=== PATIENT | female | born 1945 | race Caucasian/White ===

== ENCOUNTER → 2016-11-09 | Outpatient (CLI) | payer MEDICARE ==
--- NOTE | 2016-11-09 08:47 | US ---
EXAMINATION TYPE: US carotid duplex BILAT DATE OF EXAM: 11/09/2016 COMPARISON: NONE CLINICAL HISTORY: I65.23 STENOSIS OF BILATERAL CAROTID ARTERIES. previous smoker, no h/o stroke EXAM MEASUREMENTS: RIGHT: Peak Systolic Velocity (PSV) cm/sec ----- Right CCA: 66.8 ----- Right ICA: 100.6 ----- Right ECA: 59.3 ICA/CCA ratio: 1.5 RIGHT: End Diastole cm/sec ----- Right CCA: 20.1 ----- Right ICA: 31.2 ----- Right ECA: 8.7 LEFT: Peak Systolic Velocity (PSV) cm/sec ----- Left CCA: 44.4 ----- Left ICA: 317.5 ----- Left ECA: 128.3 ICA/CCA ratio: 7.2 LEFT: End Diastole cm/sec ----- Left CCA: 15.6 ----- Left ICA: 41.4 ----- Left ECA: 9.8 VERTEBRALS (direction of flow): Right Vertebral: Antegrade Left Vertebral: Antegrade Heterogeneous plaque seen bilaterally, more so on the left with stenosis noted at left ICA prx Atheromatous plaquing is at the internal carotid artery origins. There is marked increased velocity a t the left internal carotid artery compatible with severe stenosis of greater than 70%. IMPRESSION: 1. Intimal thickening with some atheromatous plaquing bilateral carotid vessels greater within the le ft internal carotid artery. 2. Severe stenosis greater than 70% at the left internal carotid artery origin. 3. Less than 50% narrowing of the right internal carotid artery origin. Criteria for Assigning % of Stenosis / Diameter reduction (Estimation based on the indirect measurements of the internal carotid artery velocities (ICA PSV). 1. Normal (no stenosis)=ICA PSV < 125 cm/s: ratio < 2.0: ICA EDV<40 cm/s. 2. Less than 50% stenosis=ICA PSV < 125 cm/s: ratio < 2.0: ICA EDV<40 cm/s. 3. 50 to 69% stenosis=ICA PSV of 125 to 230 cm/s: ration 2.0 ? 4.0: ICA EDV 40-100 cm/s. 4. Greater than 70% stenosis to near occlusion= ICA PSV > 230 cm/s: ratio > 4.0: ICA EDV > 100 cm/s. 5. Near occlusion= ICA PSV velocities may be low or undetectable: variable ratio and ICA EDV. 6. Total occlusion=unable to detect flow.
--- NOTE | 2016-11-09 08:58 | US ---
EXAMINATION TYPE: US duplex aorta DATE OF EXAM: 11/09/2016 COMPARISON: 11/24/2012 CLINICAL HISTORY: I71.4 I71.4 w/o rupture. Reassess known AAA EXAM MEASUREMENTS: Abdominal Aorta: Proximal: 2.5 x 2.5cm Mid: 3.6 x 4.2cm Distal: 2.4 x 2.9cm Bifurcation: shadowing from calcifications and bowel gas obscures view 4.2cm infrarenal aneurysm seen along with increased diameter at distal aorta, unable to visualize bif urcation due to extensive plaque noted throughout portions of aorta and obscuring bowel gas IMPRESSION: 1. Abdominal aortic aneurysm with maximum AP diameter of 4.2 cm. Transverse dimension is 3.6 cm. This has increased in size from 2012.
--- NOTE | 2016-11-14 11:22 | P.ARTDOP ---
Arterial Doppler LOWER EXTREMITY ARTERIAL DOPPLER: DATE OF SERVICE: 11/09/2016 Reason for study: Leg weakness. Doppler waveforms: Atypical throughout on the right. Multiphasic at the left femoral popliteal and posterior tibial. Atypical below.. Pulse volume recording: Normal configuration on the left and mild blunting on the right.. Pressure gradients: Above the low thigh on the right and femoral popliteal on the left. Ankle-brachial indices: 0.59 on the right and 0.79 on the left.. Toe pressures: 74 on the right, 102 on the left Impression: Mild left SFA disease. Moderate right iliofemoral disease. Clinical correlation recommended..
== END | disposition home or self-care (01) ==
LOC: RADUSWWP 06:48
PROVIDERS: ATTEND Internal Medicine
DX: I71.4 Abdominal aortic aneurysm, without rupture (principal); I65.23 Occlusion and stenosis of bilateral carotid arteries; I73.9 Peripheral vascular disease, unspecified
CPT/HCPCS: 93880; 93923; 93979

== ENCOUNTER 2017-10-05 18:12 | Inpatient (IN) | payer MEDICARE ==
[2017-10-05] MEDS ORDERED: IPRATROPIUM 0.5 MG/2.5 ML NEBU INHALATION STA ×2 (18:26→20:17)
[2017-10-05] MEDS ORDERED: methylPREDNISolone SOD SUCCI 125 MG/2 ML VIAL IV STA (18:26)
[2017-10-05] MEDS ORDERED: SODIUM CHLORIDE 0.9% 1,000 ML IV STA (18:26)
[2017-10-05] MEDS ORDERED: ALBUTEROL NEBULIZED 2.5 MG/3 ML INHALATION STA ×2 (18:26→20:17)
[2017-10-05] MEDS ORDERED: AZITHROMYCIN 500 MG in SODIUM CHLORIDE 0.9% 250 ML IVPB STA (18:32)
[2017-10-05] MEDS: SODIUM CHLORIDE 0.9% 1,000 ML IV STA ×2 (18:38→22:56)
--- NOTE | 2017-10-05 18:41 | ED ---
General Adult HPI - General Chief complaint: Shortness of Breath Stated complaint: LAURA, POSS PNEUMONIA Time Seen by Provider: 10/05/17 18:26 Source: patient, RN notes reviewed, old records reviewed Mode of arrival: wheelchair Limitations: no limitations - History of Present Illness Initial comments: This is a 72-year-old female the ER for evasive significant shortness of breath. Patient's been trending worse since Saturday. Patient complains of cough and congestion significant short of breath denies chest pain no travel history no sick contacts. No recent hospitalizations. Patient states she does have an inhaler at home no breathing treatments. She isn't is using her head with no help. Patient denies fever. Denies was significant modifying factors. Patient states her activity levels with severely reduced secondary to shortness of breath - Related Data Allergies Allergy/AdvReac Type Severity Reaction Status Date / Time No Known Allergies Allergy Unverified 10/05/17 18:15 Review of Systems ROS Statement: Those systems with pertinent positive or pertinent negative responses have been documented in the HPI. ROS Other: All systems not noted in ROS Statement are negative. Past Medical History Past Medical History: COPD, Diabetes Mellitus, Hyperlipidemia, Hypertension History of Any Multi-Drug Resistant Organisms: None Reported Additional Past Surgical History / Comment(s): bowel resection, ileostomy reversal, left femur Past Psychological History: Anxiety Smoking Status: Former smoker Past Alcohol Use History: None Reported Past Drug Use History: None Reported General Exam Limitations: no limitations General appearance: alert, in no apparent distress Head exam: Present: atraumatic, normocephalic, normal inspection Eye exam: Present: normal appearance, PERRL, EOMI. Absent: scleral icterus, conjunctival injection, periorbital swelling ENT exam: Present: normal exam, mucous membranes moist Neck exam: Present: normal inspection. Absent: tenderness, meningismus, lymphadenopathy Respiratory exam: Present: respiratory distress, wheezes, accessory muscle use, decreased breath sounds, prolonged expiratory. Absent: rales, rhonchi, stridor Cardiovascular Exam: Present: regular rate, normal rhythm, normal heart sounds. Absent: systolic murmur, diastolic murmur, rubs, gallop, clicks GI/Abdominal exam: Present: soft, normal bowel sounds. Absent: distended, tenderness, guarding, rebound, rigid Extremities exam: Present: normal inspection, full ROM, normal capillary refill. Absent: tenderness, pedal edema, joint swelling, calf tenderness Back exam: Present: normal inspection Neurological exam: Present: alert, oriented X3, CN II-XII intact Psychiatric exam: Present: normal affect, normal mood Skin exam: Present: warm, dry, intact, normal color. Absent: rash Course Vital Signs 10/05/17 10/05/17 10/05/17 18:15 18:43 18:47 Temperature 98.2 F Pulse Rate 75 69 Respiratory 28 H 26 H Rate Blood Pressure 79/45 O2 Sat by Pulse 88 L Oximetry 10/05/17 10/05/17 18:58 19:31 Temperature Pulse Rate 66 70 Respiratory Rate Blood Pressure O2 Sat by Pulse Oximetry - Reevaluation(s) Reevaluation #1: 10/05/17 18:41 Patient does have improvement placed on oxygen with prolonged breathing treatment EKG Findings - EKG Comments: EKG Findings:: EKG shows sinus rhythm rate of 74, MN 136, QRS 94, QTc 461 Medical Decision Making - Medical Decision Making 72 female the ER for evaluation, positive shortness of breath, severe shortness of breath COPD exacerbation, positive pneumonia. Patient be admitted for IV antibiotics, breathing treatment steroids - Lab Data Result diagrams: 10/05/17 18:30 10/05/17 18:30 Lab Results 10/05/17 10/05/17 10/05/17 Range/Units 18:30 18:30 18:30 WBC 5.8 (3.8-10.6) k/uL RBC 3.98 (3.80-5.40) m/uL Hgb 12.2 (11.4-16.0) gm/dL Hct 36.6 (34.0-46.0) % MCV 92.0 (80.0-100.0) fL MCH 30.6 (25.0-35.0) pg MCHC 33.2 (31.0-37.0) g/dL RDW 13.6 (11.5-15.5) % Plt Count 189 (150-450) k/uL Neutrophils % 72 % Lymphocytes % 17 % Monocytes % 8 % Eosinophils % 0 % Basophils % 0 % Neutrophils # 4.2 (1.3-7.7) k/uL Lymphocytes # 1.0 (1.0-4.8) k/uL Monocytes # 0.5 (0-1.0) k/uL Eosinophils # 0.0 (0-0.7) k/uL Basophils # 0.0 (0-0.2) k/uL PT (9.0-12.0) sec INR (<1.2) APTT (22.0-30.0) sec Sodium 140 (137-145) mmol/L Potassium 4.3 (3.5-5.1) mmol/L Chloride 109 H (98-107) mmol/L Carbon Dioxide 13 L (22-30) mmol/L Anion Gap 18 mmol/L BUN 56 H (7-17) mg/dL Creatinine 3.24 H (0.52-1.04) mg/dL Est GFR (CKD-EPI)AfAm 16 (>60 ml/min/1.73 sqM) Est GFR (CKD-EPI)NonAf 14 (>60 ml/min/1.73 sqM) Glucose 129 H (74-99) mg/dL Calcium 9.1 (8.4-10.2) mg/dL Magnesium 2.1 (1.6-2.3) mg/dL Total Bilirubin 0.8 (0.2-1.3) mg/dL AST 36 (14-36) U/L ALT 37 (9-52) U/L Alkaline Phosphatase 107 (38-126) U/L Total Creatine Kinase 381 H (30-135) U/L CK-MB (CK-2) 2.2 (0.0-2.4) ng/mL CK-MB (CK-2) Rel Index 0.6 Troponin I <0.012 (0.000-0.034) ng/mL NT-Pro-B Natriuret Pep pg/mL Total Protein 7.0 (6.3-8.2) g/dL Albumin 3.9 (3.5-5.0) g/dL 10/05/17 10/05/17 Range/Units 18:30 18:30 WBC (3.8-10.6) k/uL RBC (3.80-5.40) m/uL Hgb (11.4-16.0) gm/dL Hct (34.0-46.0) % MCV (80.0-100.0) fL MCH (25.0-35.0) pg MCHC (31.0-37.0) g/dL RDW (11.5-15.5) % Plt Count (150-450) k/uL Neutrophils % % Lymphocytes % % Monocytes % % Eosinophils % % Basophils % % Neutrophils # (1.3-7.7) k/uL Lymphocytes # (1.0-4.8) k/uL Monocytes # (0-1.0) k/uL Eosinophils # (0-0.7) k/uL Basophils # (0-0.2) k/uL PT 9.6 (9.0-12.0) sec INR 1.0 (<1.2) APTT 21.8 L (22.0-30.0) sec Sodium (137-145) mmol/L Potassium (3.5-5.1) mmol/L Chloride (98-107) mmol/L Carbon Dioxide (22-30) mmol/L Anion Gap mmol/L BUN (7-17) mg/dL Creatinine (0.52-1.04) mg/dL Est GFR (CKD-EPI)AfAm (>60 ml/min/1.73 sqM) Est GFR (CKD-EPI)NonAf (>60 ml/min/1.73 sqM) Glucose (74-99) mg/dL Calcium (8.4-10.2) mg/dL Magnesium (1.6-2.3) mg/dL Total Bilirubin (0.2-1.3) mg/dL AST (14-36) U/L ALT (9-52) U/L Alkaline Phosphatase (38-126) U/L Total Creatine Kinase (30-135) U/L CK-MB (CK-2) (0.0-2.4) ng/mL CK-MB (CK-2) Rel Index Troponin I (0.000-0.034) ng/mL NT-Pro-B Natriuret Pep 670 pg/mL Total Protein (6.3-8.2) g/dL Albumin (3.5-5.0) g/dL - Radiology Data Radiology results: report reviewed (Chest x-ray is positive for pneumonia), image reviewed Critical Care Time Critical Care Time: Yes Total Critical Care Time: 31 Disposition Clinical Impression: Acute exacerbation of chronic obstructive airways disease Disposition: ADMITTED IP TO THIS HOSP Condition: Fair Is patient prescribed a controlled substance at d/c from ED?: No Referrals: Pastora Frazier MD [Primary Care Provider] - 1-2 days
[2017-10-05 18:48] LABS: Basophils % (A) 0 %; Eosinophils % (A) 0 %; HCT 36.6 % (34.0-46.0); HGB 12.2 gm/dL (11.4-16.0); Lymphocytes % (A) 17 %; MCH 30.6 pg (25.0-35.0); MCHC 33.2 g/dL (31.0-37.0); Mean Platelet Volume 8.3; Monocytes # (A) 0.5 k/uL (0-1.0); Monocytes % (A) 8 %; Neutrophils # (A) 4.2 k/uL (1.3-7.7); Neutrophils % (A) 72 %; Platelet Count 189 k/uL (150-450); RBC 3.98 m/uL (3.80-5.40); RDW 13.6 % (11.5-15.5); WBC 5.8 k/uL (3.8-10.6)
[2017-10-05 18:57] LABS: Albumin 3.9 g/dL (3.5-5.0); Calcium 9.1 mg/dL (8.4-10.2); Magnesium 2.1 mg/dL (1.6-2.3); Potassium 4.3 mmol/L (3.5-5.1); Total Bilirubin 0.8 mg/dL (0.2-1.3)
[2017-10-05 19:10] LABS: Prothrombin Time 9.6 sec (9.0-12.0)
[2017-10-05 19:14] LABS: Creatine Kinase 381 U/L (30-135)
[2017-10-05 19:20] LABS: Partial Thromboplastin Time 21.8 sec (22.0-30.0)
[2017-10-05 19:26] LABS: Creatine Kinase MB 2.2 ng/mL (0.0-2.4); Troponin I <0.012 ng/mL (0.000-0.034)
--- NOTE | 2017-10-05 19:28 | XR ---
EXAMINATION TYPE: XR chest 1V portable DATE OF EXAM: 10/05/2017 COMPARISON: 08/16/2013 HISTORY: Difficulty breathing TECHNIQUE: Single frontal view of the chest is obtained. FINDINGS: Heart is normal. There is some linear patchy infiltrate in the left lower lobe and left up per lobe. The right lung is clear. There is no heart failure. Thoracic aorta is atheromatous. There a re chest leads. Heart is shifted slightly to the left side. IMPRESSION: There is increasing linear infiltrate and atelectasis in the left lung compared to 2013. No heart failure.
[2017-10-05] MEDS ORDERED: cefTRIAXone IN SWFI 1,000 MG/10 ML SYRINGE IVP STA (20:03)
[2017-10-05] MEDS ORDERED: DIAZEPAM 5 MG/ML 2 ML INJ IVP STA (20:18)
[2017-10-05] MEDS: SODIUM CHLORIDE 0.9% 1,000 ML IV SCH (23:00)
[2017-10-05] MEDS ORDERED: ASCORBIC ACID 500 MG TAB PO SCH (23:15)
[2017-10-05 23:23] LABS: Glucose,Whole Blood 231 mg/dL (75-99)
[2017-10-05] MEDS: INSULIN DETEMIR 100 UNIT/ML 10 ML VIAL SQ SCH (23:30)
[2017-10-05] MEDS: methylPREDNISolone SOD SUCCI 125 MG/2 ML VIAL IV SCH (23:38)
[2017-10-05] MEDS: INSULIN ASPART 100 UNIT/ML 1 ML 10 ML VIAL SQ SCH (23:39)
[2017-10-05] MEDS: CARVEDILOL 12.5 MG TAB PO SCH (23:39)
[2017-10-05] MEDS: ALPRAZolam 0.25 MG TAB PO PRN (23:42)
[2017-10-06] MEDS: methylPREDNISolone SOD SUCCI 125 MG/2 ML VIAL IV SCH ×4 (05:17→23:04)
[2017-10-06] MEDS: SODIUM CHLORIDE 0.9% 1,000 ML IV SCH ×2 (05:18→17:21)
[2017-10-06 07:06] LABS: Glucose,Whole Blood 160 mg/dL (75-99)
[2017-10-06] MEDS: IPRATROPIUM-ALBUTEROL 3 ML NEB INHALATION SCH ×4 (07:10→19:13)
[2017-10-06] MEDS: ASCORBIC ACID 500 MG TAB PO SCH (07:36)
[2017-10-06] MEDS: CHOLECALCIFEROL 1,000 UNIT TAB PO SCH (07:36)
[2017-10-06] MEDS: CARVEDILOL 12.5 MG TAB PO SCH ×2 (07:36→17:35)
[2017-10-06] MEDS: ASPIRIN 81 MG PO SCH (07:36)
[2017-10-06] MEDS: INSULIN ASPART 100 UNIT/ML 1 ML 10 ML VIAL SQ SCH ×8 (07:37→20:59)
[2017-10-06] MEDS ORDERED: LOSARTAN 50 MG TAB PO SCH (09:00)
[2017-10-06] MEDS ORDERED: FENOFIBRATE 54 MG TAB PO SCH (09:00)
[2017-10-06] MEDS ORDERED: ENOXAPARIN 40 MG/0.4 ML SYRINGE SQ SCH (09:00)
[2017-10-06 11:17] LABS: ABG HCO3 15 mmol/L (21-25); ABG Oxygen Saturation 93.7 % (94-97); ABG PCO2 31 mmHg (35-45); ABG PO2 70 mmHg (83-108); ABG TCO2 16 mmol/L (19-24)
[2017-10-06 11:48] LABS: Glucose,Whole Blood 263 mg/dL (75-99)
--- NOTE | 2017-10-06 12:05 | P.HPIM ---
History of Present Illness H&P Date: 10/06/17 Chief Complaint: Shortness of breath This is a 72-year-old female patient of Dr. Frazier with past history for COPD, diabetes mellitus type 2 insulin requiring, hypertension, hyperlipidemia, generalized osteoarthritis, generalized anxiety disorder. Patient gives history that she had cold symptoms about 11 days ago and since then has had shortness of breath and a cough with sputum production. She states she has trouble walking due to previous bowel surgery. She denies having any chest pain. She states she was on oxygen at home for years ago and this was taken off and she has been doing fine until this episode. She does not follow with the pulmonary medicine doctor. She quit smoking 1 year ago and was smoking 2 packs per day for 56 years. Patient came into [facility] emergency center for evaluation. Pulse ox was 88%, patient was afebrile, respirations 26-28 and normal heart rate. White count and hemoglobin were normal. BUN 56 and creatinine 3.2, blood sugar 129. Troponin was negative. ProBNP 670. Chest x-ray reveals increasing linear infiltrate and atelectasis in the left lung. Patient was given nebulizer treatments, started on ceftriaxone and azithromycin and IV Solu- Medrol. Patient was eventually on high flow oxygen and still pulse oxing only 87%. She is now on 50 L at and FiO2 of 62% and pulse oxing 98%. Patient has not tolerated switching to regular nasal cannula. ABGs showed a pH of 7.3, CO2 31, O2 70, bicarb 15, saturation 94%. Patient was unable to go for VQ scan at this time as she could not tolerate 15 L nasal cannula. We are ordering lower extremity Doppler. Review of Systems All systems: negative Constitutional: Reports fatigue, Denies chills, Denies fever, Denies weight loss Eyes: denies blurred vision, denies pain Ears, nose, mouth and throat: Denies dysphagia, Denies headache, Denies mouth pain, Denies sore throat, Denies vertigo Cardiovascular: Reports decreased exercise tolerance, Reports dyspnea on exertion, Reports shortness of breath, Denies chest pain, Denies edema, Denies leg edema, Denies lightheadedness, Denies syncope Respiratory: Reports congestion, Reports cough, Reports cough with sputum, Reports dyspnea, Reports respiratory infections, Denies excessive sputum, Denies hemoptysis, Denies home oxygen Gastrointestinal: Denies abdominal pain, Denies diarrhea, Denies nausea, Denies vomiting Genitourinary: Denies dysuria, Denies hematuria Musculoskeletal: Denies myalgias Integumentary: Denies pruritus, Denies rash Neurological: Denies numbness, Denies weakness Psychiatric: Denies anxiety, Denies depression Endocrine: Denies fatigue, Denies weight change Past Medical History Past Medical History: COPD, Diabetes Mellitus, Hyperlipidemia, Hypertension, Osteoarthritis (OA) History of Any Multi-Drug Resistant Organisms: None Reported Past Surgical History: Hysterectomy Additional Past Surgical History / Comment(s): bowel resection possibly for colon perforation, ileostomy reversal, left femur fx repair Past Psychological History: Anxiety Smoking Status: Former smoker Past Alcohol Use History: None Reported Additional Past Alcohol Use History / Comment(s): Patient was a smoker of 2 packs per day for 56 years and quit 1 year ago. No illicit drug use or alcohol use. Past Drug Use History: None Reported - Past Family History Mother Additional Family Medical History / Comment(s): heart problems Father Family Medical History: Cancer Additional Family Medical History / Comment(s): There was a smoker and had lung cancer with lung resection done and heart problems Medications and Allergies Home Medications Medication Instructions Recorded Confirmed Type ALPRAZolam [Xanax] 0.25 mg PO Q8HR PRN 10/05/17 10/05/17 History Ascorbic Acid [Vitamin C] 500 mg PO DIRECTED 10/05/17 10/05/17 History Aspirin 81 mg PO DAILY 10/05/17 10/05/17 History Atorvastatin Calcium [Lipitor] 20 mg PO HS 10/05/17 10/05/17 History Carvedilol 25 mg PO BID 10/05/17 10/05/17 History Cholecalciferol (Vitamin D3) 2,000 unit PO DAILY 10/05/17 10/05/17 History [Vitamin D3] Fenofibrate [Lofibra] 54 mg PO DAILY 10/05/17 10/05/17 History Fluticasone/Vilanterol [Breo 1 inhalation INHALATION DAILY 10/05/17 10/05/17 History Ellipta 200-25 Mcg INH] INSULIN LISPRO (humaLOG) [humaLOG] 7 units SQ ACHS 10/05/17 10/05/17 History Insulin Detemir [Levemir] 23 unit SQ HS 10/05/17 10/05/17 History Losartan Potassium 50 mg PO DAILY 10/05/17 10/05/17 History Imboden-3 Fatty Acids/Fish Oil [Fish 1 each PO DAILY 10/05/17 10/05/17 History Oil 1,000 mg Softgel] Ubidecarenone [Co Q-10] 200 mg PO BID 10/05/17 10/05/17 History Allergies Allergy/AdvReac Type Severity Reaction Status Date / Time No Known Allergies Allergy Unverified 10/05/17 18:15 Physical Exam Vitals: Vital Signs Temp Pulse Pulse Resp BP BP Pulse Ox 10/06/17 07:24 84 10/06/17 07:10 72 10/06/17 06:22 97.6 F 69 22 132/60 98 10/05/17 23:36 96 10/05/17 22:15 96.2 F L 77 20 115/59 87 L 10/05/17 21:30 72 10/05/17 21:15 98.2 F 71 24 134/69 91 L 10/05/17 21:11 71 10/05/17 20:40 71 10/05/17 20:23 74 10/05/17 20:20 97.5 F L 71 24 110/60 91 L 10/05/17 19:31 70 10/05/17 18:58 66 10/05/17 18:47 26 H 10/05/17 18:43 69 10/05/17 18:15 98.2 F 75 28 H 79/45 88 L Intake and Output 10/05/17 10/06/17 10/06/17 22:59 06:59 14:59 Intake Total 400 100 Balance 400 100 Intake: Oral 400 100 Other: Voiding Method Bedside Commode # Voids 0 Weight 66.67 kg 73.255 kg Gen: This is a 72-year-old female patient. She is sitting on edge of the bed with FiO2 of 62% with some dyspnea and accessory muscle usage. HEENT: Head is atraumatic, normocephalic. Pupils equal, round. Sclerae is anicteric. NECK: Supple. No JVD. No lymphadenopathy. No thyromegaly. LUNGS: Diminished/silent lung sounds throughout. No wheezing. Mild intercostal retractions and accessory muscle usage.. HEART: Regular rate and rhythm. No murmur. ABDOMEN: Soft. Bowel sounds are present. No masses. No tenderness. EXTREMITIES: No pedal edema. No calf tenderness. NEUROLOGICAL: Patient is awake, alert and oriented x3. Cranial nerves 2 through 12 are grossly intact. Results CBC & Chem 7: 10/05/17 18:30 10/05/17 18:30 Labs: Abnormal Lab Results - Last 24 Hours (Table) 10/05/17 10/05/17 10/05/17 Range/Units 18:30 18:30 18:30 APTT 21.8 L (22.0-30.0) sec Chloride 109 H (98-107) mmol/L Carbon Dioxide 13 L (22-30) mmol/L BUN 56 H (7-17) mg/dL Creatinine 3.24 H (0.52-1.04) mg/dL Glucose 129 H (74-99) mg/dL POC Glucose (mg/dL) (75-99) mg/dL Total Creatine Kinase 381 H (30-135) U/L 10/05/17 10/06/17 Range/Units 23:19 07:04 APTT (22.0-30.0) sec Chloride (98-107) mmol/L Carbon Dioxide (22-30) mmol/L BUN (7-17) mg/dL Creatinine (0.52-1.04) mg/dL Glucose (74-99) mg/dL POC Glucose (mg/dL) 231 H 160 H (75-99) mg/dL Total Creatine Kinase (30-135) U/L Thrombosis Risk Factor Assmnt - DVT/VTE Prophylaxis DVT/VTE Prophylaxis: Pharmacologic Prophylaxis ordered - Choose All That Apply Any of the Below Risk Factors Present?: Yes Each Factor Represents 1 point: Abnormal pulmonary function (COPD) Each Risk Factor Represents 2 Points: Age 61-74 years Other congenital or acquired thrombophilia - If yes, enter type in comment: No Thrombosis Risk Factor Assessment Total Risk Factor Score: 3 Thrombosis Risk Factor Assessment Level: Moderate Risk Assessment and Plan Plan: 1. Acute COPD exacerbation with possible left sided pneumonia, probable gram- negative pneumonia. Consult with Dr. Freeman appreciated. Continue DuoNeb treatments 4 times daily, and azithromycin, ceftriaxone, Solu-Medrol 60 mg IV every 6 hours. 2. Acute hypoxic respiratory failure. Patient is currently on oxygen by nasal cannula at 50 L with FiO2 of 62%. Patient is unable to undergo CTA of the chest to rule out PE due to renal failure and VQ scan due to oxygen needs. Plan for bilateral lower extremity Dopplers/duplex for DVT. 3. Acute kidney injury. Fenofibrate and losartan discontinued. Consult with nephrology. Continue IV fluids at 100 mL per hour. 4. Diabetes mellitus type 2, insulin requiring. Continue Levemir 23 units at bedtime, 7 units with meals and at bedtime and scale. 5. Hypertension. Continue Coreg 25 mg twice daily. 6. Hyperlipidemia. Continue Lipitor 20 g at bedtime. 7. Generalized anxiety disorder. Continue Xanax or 0.25 mg every 8 hours as needed. 8. History of bowel resection, stable next field DVT prophylaxis. Lovenox. 9. Gastrointestinal prophylaxis. Pepcid. Patient will be admitted to the hospital for a minimum of 3 night stay. Discharge plan: To be determined. We will plan to add and PT OT once respiratory status is stable Impression and plan of care have been directed as dictated by the signing physician. Annie Ba nurse practitioner acting as scribe for signing physician.
--- NOTE | 2017-10-06 13:06 | US ---
EXAMINATION TYPE: US venous doppler duplex LE DATE OF EXAM: 10/06/2017 11:25 AM COMPARISON: NONE CLINICAL HISTORY: LAURA, check for DVT. Bilateral leg pain, exam done portable. SIDE PERFORMED: Bilateral TECHNIQUE: The lower extremity deep venous system is examined utilizing real time linear array sonog ryan with graded compression, doppler sonography and color-flow sonography. VESSELS IMAGED: External Iliac Vein (EIV) Common Femoral Vein Deep Femoral Vein Greater Saphenous Vein * Femoral Vein Popliteal Vein Small Saphenous Vein * Proximal Calf Veins (* superficial vessels) Right Leg: Appears negative for DVT Left Leg: Appears negative for DVT IMPRESSION: 1. No diagnostic evidence of DVT.
--- NOTE | 2017-10-06 14:42 | CT ---
EXAMINATION TYPE: CT chest wo con DATE OF EXAM: 10/06/2017 COMPARISON: NONE HISTORY: COPD CT DLP: 281.30 mGycm. Automated Exposure Control for Dose Reduction was Utilized. TECHNIQUE: CT scan of the thorax is performed without IV contrast. FINDINGS: There is linear density in the anterior left upper lobe and posterior right lung apex consistent with scarring. There is similar density in the right middle lobe and lingula left upper lobe. There is pa tchy linear mild infiltrate and atelectasis at the left posterior lung base. There is no pleural effu tricia. Thoracic aorta is atheromatous. There is no pericardial effusion. There is no mediastinal adeno rob. I see no hilar mass. The bony thorax is intact. IMPRESSION: Bilateral patchy pulmonary linear infiltrates consistent with scarring and atelectasis. T his most likely relates to old inflammatory disease. Atherosclerotic vascular disease.
[2017-10-06 16:54] LABS: Glucose,Whole Blood 185 mg/dL (75-99)
[2017-10-06] MEDS: DEXTROSE 5% IN WATER 1,000 ML with SODIUM BICARB (1 MEQ/ML) 150 ML IV SCH (17:20)
[2017-10-06] MEDS ORDERED: AZITHROMYCIN 500 MG in SODIUM CHLORIDE 0.9% 250 ML IVPB SCH (18:00)
[2017-10-06] MEDS: BUDESONIDE 0.5 MG/2 ML NEBU INHALATION SCH (19:13)
[2017-10-06] MEDS: ATORVASTATIN 20 MG TAB PO SCH (20:15)
[2017-10-06] MEDS: MONTELUKAST 10 MG TAB PO SCH (20:18)
[2017-10-06] MEDS: HEPARIN SODIUM,PORCINE 5,000 UNIT/ML 1 ML VIAL SQ SCH (20:18)
[2017-10-06] MEDS: cefTRIAXone IN SWFI 1,000 MG/10 ML SYRINGE IVP SCH (20:22)
--- NOTE | 2017-10-06 20:36 | CONS ---
CONSULTATION Glenny Rodriguez is a 72-year-old female who presented to the ED at [facility] on 10/05/17. At that time the patient had been having increasing shortness of breath for about 5 days duration. She had been having some wheezing. She had an inhaler at home. She also had breathing treatments and does not remember the medication she uses. She continued to worsen. She denied any fever or chills. She was subsequently seen in the ED and admitted for further evaluation and management. PAST MEDICAL HISTORY: Positive for a history of COPD, history of left knee surgery, history of diabetes mellitus, hyperlipidemia, hypertension, bowel resection with subsequent ileostomy removal, anxiety, depression. SOCIAL HISTORY: Patient is a former smoker. She does not drink alcohol excessively. 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 MEDICATIONS: Prior to admission were insulin, Breo Ellipta, Lipitor, aspirin, fish oil, cholecalciferol, losartan, fenofibrate, ascorbic acid, carvedilol, CoQ10, and alprazolam. REVIEW OF SYSTEMS: Noncontributory. PHYSICAL EXAMINATION: She is lying in bed. She is mildly short of breath. She was on high flow nasal cannula. Blood pressure is 132/60, respiratory rate of 20, pulse rate 69, temperature 99, O2 saturation is 98%. HEENT reveals pupils are equal. No jugular venous distention. Chest reveals decreased breath sounds. Prolonged expiration with expiratory wheeze. Cardiovascular system revealed S1, S2. No S3, no S4. No murmurs. ABDOMEN: Soft. There is no pedal edema. There is scar of previous left lower extremity surgery. LABORATORY DATA: ABG showed a pH of 7.30, pCO2 of 31, PO2 of 70, bicarb of 16, O2 saturation 93.7. Sodium is 140, potassium 4.3, chloride 109, bicarb 13, anion gap of 18, BUN 56, creatinine of 3.24, glucose 231. White count of 5.8, hemoglobin of 12.2, 0% eosinophils. Chest x-ray showed atelectatic change in the left lower lobe and upper lobes. IMPRESSION: At this time: 1. Asthma with chronic obstructive pulmonary disease with acute exacerbation. 2. Acute on chronic renal failure. 3. Possible left-sided pneumonia. At this point in time, keep her on GI and DVT prophylaxis. IV and aerosolized steroids. Add montelukast to her regimen in the hope of decreasing her need for systemic steroids. Check an allergy profile, alpha-1 antitrypsin phenotype. We will check a CT scan of the chest as well to further anatomically define her pathology. She was counseled regarding her condition and this approach. I would like to thank you for allowing me to participate in her care. [email or web address] / IJN: [id number] /
[2017-10-06 20:50] LABS: Glucose,Whole Blood 195 mg/dL (75-99)
[2017-10-06] MEDS: INSULIN DETEMIR 100 UNIT/ML 10 ML VIAL SQ SCH (20:59)
[2017-10-06] MEDS: ALPRAZolam 0.25 MG TAB PO PRN (21:03)
[2017-10-07] MEDS: methylPREDNISolone SOD SUCCI 125 MG/2 ML VIAL IV SCH ×4 (05:33→23:19)
[2017-10-07] MEDS: DEXTROSE 5% IN WATER 1,000 ML with SODIUM BICARB (1 MEQ/ML) 150 ML IV SCH ×2 (05:34→17:53)
[2017-10-07] MEDS: SODIUM CHLORIDE 0.9% 1,000 ML IV SCH ×2 (05:34→16:50)
[2017-10-07 07:11] LABS: Glucose,Whole Blood 213 mg/dL (75-99)
[2017-10-07] MEDS: ASCORBIC ACID 500 MG TAB PO SCH (07:14)
[2017-10-07] MEDS: CHOLECALCIFEROL 1,000 UNIT TAB PO SCH (07:14)
[2017-10-07] MEDS: CARVEDILOL 12.5 MG TAB PO SCH ×2 (07:14→17:53)
[2017-10-07] MEDS: FAMOTIDINE 20 MG TAB PO SCH (07:14)
[2017-10-07] MEDS: HEPARIN SODIUM,PORCINE 5,000 UNIT/ML 1 ML VIAL SQ SCH ×2 (07:14→20:03)
[2017-10-07] MEDS: ASPIRIN 81 MG PO SCH (07:14)
[2017-10-07] MEDS: INSULIN ASPART 100 UNIT/ML 1 ML 10 ML VIAL SQ SCH ×8 (07:18→21:25)
[2017-10-07] MEDS: BUDESONIDE 0.5 MG/2 ML NEBU INHALATION SCH ×2 (07:44→20:47)
[2017-10-07] MEDS: IPRATROPIUM-ALBUTEROL 3 ML NEB INHALATION SCH ×4 (07:44→20:47)
[2017-10-07 08:50] LABS: HCT 30.6 % (34.0-46.0); HGB 10.2 gm/dL (11.4-16.0); MCH 30.9 pg (25.0-35.0); MCHC 33.2 g/dL (31.0-37.0); Mean Platelet Volume 7.9; Platelet Count 205 k/uL (150-450); RBC 3.29 m/uL (3.80-5.40); RDW 13.8 % (11.5-15.5); WBC 6.8 k/uL (3.8-10.6)
[2017-10-07 08:51] LABS: Potassium 4.2 mmol/L (3.5-5.1)
--- NOTE | 2017-10-07 10:28 | P.PN ---
<Annamarie Leon E - Last Filed: 10/07/17 15:03> Subjective Progress Note Date: 10/07/17 HPI: Glenny Rodriguez is a 72-year-old female who presented to the ED at [facility] on 10/05/2017. At that time the patient had been having increasing shortness of breath for about 5 days' duration. She had been having some wheezing. She had an inhaler at home. She also had breathing treatments and does not remember the medication she uses. She continued to worsen. She denies any fevers or chills. She was subsequently seen in the ED and admitted for further evaluation and management. 10/07/2017- patient is being seen examined and evaluated today on rounds. Patient continues on high flow nasal cannula at 50 L an FiO2 of 65%. She did have a CT of the chest which did show bilateral petrolatum infiltrates with scarring and atelectasis as well as an old inflammatory disease. Dopplers of her bilateral lower extremities were negative for any DVTs. The patient is going for a VQ scan and echocardiogram this afternoon. Upon examination the patient states she feels her breathing is somewhat better today. She continues to have a cough which was productive at 1. with yellow sputum however she's having a hard time getting up sputum currently. We will send for a sputum culture. She is afebrile no further complaints. Objective - Vital Signs Vital signs: Vital Signs Temp 97.4 F L 10/07/17 06:38 Pulse 88 10/07/17 08:01 Resp 18 10/07/17 06:38 BP 123/54 10/07/17 06:38 Pulse Ox 93 L 10/07/17 07:50 Intake & Output 10/06/17 10/07/17 10/07/17 18:59 06:59 18:59 Other: Voiding Method Bedside Commode Bedside Commode Bedside Commode # Voids 2 2 # Bowel Movements 1 - Exam GENERAL EXAM: Alert, active, comfortable in no apparent distress. HEAD: Normocephalic. EYES: Normal reaction of pupils, equal size. NOSE: Clear with pink turbinates. THROAT: No erythema or exudates. NECK: No masses, no JVD. CHEST: No chest wall deformity. LUNGS: Decreased breath sounds with prolonged expiration and expiratory wheeze. CVS: S1 and S2 normal with no audible mumurs, regular rhythm. ABDOMEN: No hepatosplenomegaly, normal bowel sounds, no guarding or rigidity. EXTREMITIES: No edema noted, pedal pulses palpable. CENTRAL NERVOUS SYSTEM: No focal deficits, tone is normal in all 4 extremities. - Labs CBC & Chem 7: 10/07/17 07:18 10/07/17 07:18 Labs: Abnormal Lab Results - Last 24 Hours (Table) 10/06/17 10/06/17 10/06/17 Range/Units 11:14 11:41 16:52 RBC (3.80-5.40) m/uL Hgb (11.4-16.0) gm/dL Hct (34.0-46.0) % ABG pH 7.30 L (7.35-7.45) ABG pCO2 31 L (35-45) mmHg ABG pO2 70 L (83-108) mmHg ABG HCO3 15 L (21-25) mmol/L ABG Total CO2 16 L (19-24) mmol/L ABG O2 Saturation 93.7 L (94-97) % Chloride (98-107) mmol/L Carbon Dioxide (22-30) mmol/L BUN (7-17) mg/dL Creatinine (0.52-1.04) mg/dL Glucose (74-99) mg/dL POC Glucose (mg/dL) 263 H 185 H (75-99) mg/dL 10/06/17 10/07/17 10/07/17 Range/Units 20:49 07:07 07:18 RBC 3.29 L (3.80-5.40) m/uL Hgb 10.2 L (11.4-16.0) gm/dL Hct 30.6 L (34.0-46.0) % ABG pH (7.35-7.45) ABG pCO2 (35-45) mmHg ABG pO2 (83-108) mmHg ABG HCO3 (21-25) mmol/L ABG Total CO2 (19-24) mmol/L ABG O2 Saturation (94-97) % Chloride (98-107) mmol/L Carbon Dioxide (22-30) mmol/L BUN (7-17) mg/dL Creatinine (0.52-1.04) mg/dL Glucose (74-99) mg/dL POC Glucose (mg/dL) 195 H 213 H (75-99) mg/dL 10/07/17 Range/Units 07:18 RBC (3.80-5.40) m/uL Hgb (11.4-16.0) gm/dL Hct (34.0-46.0) % ABG pH (7.35-7.45) ABG pCO2 (35-45) mmHg ABG pO2 (83-108) mmHg ABG HCO3 (21-25) mmol/L ABG Total CO2 (19-24) mmol/L ABG O2 Saturation (94-97) % Chloride 111 H (98-107) mmol/L Carbon Dioxide 18 L (22-30) mmol/L BUN 58 H (7-17) mg/dL Creatinine 1.90 H (0.52-1.04) mg/dL Glucose 188 H (74-99) mg/dL POC Glucose (mg/dL) (75-99) mg/dL Assessment and Plan Assessment: Assessment Acute hypoxic respiratory failure requiring high flow nasal cannula Acute exacerbation of COPD Acute exacerbation of chronic persistent asthma, baseline severity unknown Acute on chronic renal failure Possible left-sided pneumonia Plan Medications have been reviewed and will be continued as ordered. Continue antibiotics and IV steroids Singulair Add Mucinex Obtain sputum culture VQ scan and echocardiogram today. Continue with pulmonary hygiene, coughing and deep breathing exercises, and supportive care. Supplemental oxygen to maintain oxygen saturations of 92% or better. Continue nebulizer treatments. Initiate and encourage incentive spirometer Alpha-1 antitrypsin, ALLERGY profile, IgE level pending. CT of the chest reviewed Dopplers reviewed GI and DVT prophylaxis. We will continue to monitor labs/results and adjust treatment as necessary. Further recommendations pending. I performed an examination of the patient and discussed their management with the nurse practitioner. I have reviewed the nurse practitioner's note and agree with the documented findings and plan of care. <Mirian Tan - Last Filed: 10/07/17 15:12> Objective - Vital Signs Vital signs: Vital Signs Temp 97.4 F L 10/07/17 06:38 Pulse 84 10/07/17 11:26 Resp 18 10/07/17 06:38 BP 123/54 10/07/17 06:38 Pulse Ox 93 L 10/07/17 07:50 Intake & Output 06/17/18 06/18/18 06/18/18 18:59 06:59 18:59 Other: Voiding Method Bedside Commode Bedside Commode Bedside Commode # Voids 2 2 # Bowel Movements 1 - Labs CBC & Chem 7: 10/07/17 07:18 10/07/17 07:18 Labs: Abnormal Lab Results - Last 24 Hours (Table) 10/06/17 10/06/17 10/07/17 Range/Units 16:52 20:49 07:07 RBC (3.80-5.40) m/uL Hgb (11.4-16.0) gm/dL Hct (34.0-46.0) % D-Dimer (<0.60) mg/L FEU Chloride (98-107) mmol/L Carbon Dioxide (22-30) mmol/L BUN (7-17) mg/dL Creatinine (0.52-1.04) mg/dL Glucose (74-99) mg/dL POC Glucose (mg/dL) 185 H 195 H 213 H (75-99) mg/dL 10/07/17 10/07/17 10/07/17 Range/Units 07:18 07:18 10:07 RBC 3.29 L (3.80-5.40) m/uL Hgb 10.2 L (11.4-16.0) gm/dL Hct 30.6 L (34.0-46.0) % D-Dimer 4.24 H (<0.60) mg/L FEU Chloride 111 H (98-107) mmol/L Carbon Dioxide 18 L (22-30) mmol/L BUN 58 H (7-17) mg/dL Creatinine 1.90 H (0.52-1.04) mg/dL Glucose 188 H (74-99) mg/dL POC Glucose (mg/dL) (75-99) mg/dL 10/07/17 Range/Units 12:57 RBC (3.80-5.40) m/uL Hgb (11.4-16.0) gm/dL Hct (34.0-46.0) % D-Dimer (<0.60) mg/L FEU Chloride (98-107) mmol/L Carbon Dioxide (22-30) mmol/L BUN (7-17) mg/dL Creatinine (0.52-1.04) mg/dL Glucose (74-99) mg/dL POC Glucose (mg/dL) 120 H (75-99) mg/dL Assessment and Plan Assessment: Patient seen and examined. Patient is currently on high flow high humidity oxygen. She has bilateral wheezing. She is tearful and states that she does not want to go home with oxygen. VQ scan reviewed. No need for anticoagulation from pulmonary standpoint. Continue steroids, Pulmicort, DuoNeb nebs. Sputum culture if patient is able. Continue antibiotics. Decrease IV fluids. Chest x-ray appears to have worsening pulmonary edema. Also by basilar infiltrates. Continue to monitor closely. ~Mirian Tan, DO
--- NOTE | 2017-10-07 11:06 | P.PN ---
Subjective Progress Note Date: 10/07/17 This is a 72-year-old female patient of Dr. Frazier with past history for COPD, diabetes mellitus type 2 insulin requiring, hypertension, hyperlipidemia, generalized osteoarthritis, generalized anxiety disorder. Patient gives history that she had cold symptoms about 11 days ago and since then has had shortness of breath and a cough with sputum production. She states she has trouble walking due to previous bowel surgery. She denies having any chest pain. She states she was on oxygen at home for years ago and this was taken off and she has been doing fine until this episode. She does not follow with the pulmonary medicine doctor. She quit smoking 1 year ago and was smoking 2 packs per day for 56 years. Patient came into [facility] emergency center for evaluation. Pulse ox was 88%, patient was afebrile, respirations 26-28 and normal heart rate. White count and hemoglobin were normal. BUN 56 and creatinine 3.2, blood sugar 129. Troponin was negative. ProBNP 670. Chest x-ray reveals increasing linear infiltrate and atelectasis in the left lung. Patient was given nebulizer treatments, started on ceftriaxone and azithromycin and IV Solu- Medrol. Patient was eventually on high flow oxygen and still pulse oxing only 87%. She is now on 50 L at and FiO2 of 62% and pulse oxing 98%. Patient has not tolerated switching to regular nasal cannula. ABGs showed a pH of 7.3, CO2 31, O2 70, bicarb 15, saturation 94%. Patient was unable to go for VQ scan at this time as she could not tolerate 15 L nasal cannula. We are ordering lower extremity Doppler. 10/07: Patient is still requiring FiO2 of 65%. Ultrasound of bilateral lower extremities was negative for DVT. A d-dimer ordered this morning came back at 4.24. We will attempt to get VQ scan done today. Patient is followed by pulmonary medicine. Renal function is much improved today with BUN 15 creatinine 1.9. Her blood glucoses running between 185 and 213. Cardiac echocardiogram has been completed and report is pending. Alpha-1 antitrypsin and IgG are pending along with the [facility] IgE panel. Sputum culture has been uncollected. Objective - Vital Signs Vital signs: Vital Signs Temp 97.4 F L 10/07/17 06:38 Pulse 88 10/07/17 08:01 Resp 18 06/18/18 06:38 BP 123/54 10/07/17 06:38 Pulse Ox 93 L 10/07/17 07:50 Intake & Output 10/06/17 10/07/17 10/07/17 18:59 06:59 18:59 Other: Voiding Method Bedside Commode Bedside Commode Bedside Commode # Voids 2 2 # Bowel Movements 1 - Exam Gen: This is a 72-year-old female patient. She is sitting on edge of the bed with FiO2 of 62% with some dyspnea and accessory muscle usage. HEENT: Head is atraumatic, normocephalic. Pupils equal, round. Sclerae is anicteric. NECK: Supple. No JVD. No lymphadenopathy. No thyromegaly. LUNGS: Diminished/silent lung sounds throughout. No wheezing. No intercostal retractions and accessory muscle usage.. HEART: Regular rate and rhythm. No murmur. ABDOMEN: Soft. Bowel sounds are present. No masses. No tenderness. EXTREMITIES: No pedal edema. No calf tenderness. NEUROLOGICAL: Patient is awake, alert and oriented x3. Cranial nerves 2 through 12 are grossly intact. - Labs CBC & Chem 7: 10/07/17 07:18 10/07/17 07:18 Labs: Abnormal Lab Results - Last 24 Hours (Table) 10/06/17 10/06/17 10/06/17 Range/Units 11:14 11:41 16:52 RBC (3.80-5.40) m/uL Hgb (11.4-16.0) gm/dL Hct (34.0-46.0) % D-Dimer (<0.60) mg/L FEU ABG pH 7.30 L (7.35-7.45) ABG pCO2 31 L (35-45) mmHg ABG pO2 70 L (83-108) mmHg ABG HCO3 15 L (21-25) mmol/L ABG Total CO2 16 L (19-24) mmol/L ABG O2 Saturation 93.7 L (94-97) % Chloride (98-107) mmol/L Carbon Dioxide (22-30) mmol/L BUN (7-17) mg/dL Creatinine (0.52-1.04) mg/dL Glucose (74-99) mg/dL POC Glucose (mg/dL) 263 H 185 H (75-99) mg/dL 10/06/17 10/07/17 10/07/17 Range/Units 20:49 07:07 07:18 RBC 3.29 L (3.80-5.40) m/uL Hgb 10.2 L (11.4-16.0) gm/dL Hct 30.6 L (34.0-46.0) % D-Dimer (<0.60) mg/L FEU ABG pH (7.35-7.45) ABG pCO2 (35-45) mmHg ABG pO2 (83-108) mmHg ABG HCO3 (21-25) mmol/L ABG Total CO2 (19-24) mmol/L ABG O2 Saturation (94-97) % Chloride (98-107) mmol/L Carbon Dioxide (22-30) mmol/L BUN (7-17) mg/dL Creatinine (0.52-1.04) mg/dL Glucose (74-99) mg/dL POC Glucose (mg/dL) 195 H 213 H (75-99) mg/dL 10/07/17 10/07/17 Range/Units 07:18 10:07 RBC (3.80-5.40) m/uL Hgb (11.4-16.0) gm/dL Hct (34.0-46.0) % D-Dimer 4.24 H (<0.60) mg/L FEU ABG pH (7.35-7.45) ABG pCO2 (35-45) mmHg ABG pO2 (83-108) mmHg ABG HCO3 (21-25) mmol/L ABG Total CO2 (19-24) mmol/L ABG O2 Saturation (94-97) % Chloride 111 H (98-107) mmol/L Carbon Dioxide 18 L (22-30) mmol/L BUN 58 H (7-17) mg/dL Creatinine 1.90 H (0.52-1.04) mg/dL Glucose 188 H (74-99) mg/dL POC Glucose (mg/dL) (75-99) mg/dL Assessment and Plan Plan: 1. Acute COPD exacerbation with possible left sided pneumonia, probable gram- negative pneumonia. Consult with Dr. Freeman appreciated. Continue DuoNeb treatments 4 times daily, and azithromycin, ceftriaxone, Solu-Medrol 60 mg IV every 6 hours, Pulmicort 0.5 mg twice daily, Mucinex. 2. Acute hypoxic respiratory failure. Patient is currently on oxygen by nasal cannula at 50 L with FiO2 of 65%. Patient is unable to undergo CTA of the chest to rule out PE due to renal failure and VQ scan due to oxygen needs. Elevated d-dimer. VQ scan will be attempted today. 3. Acute kidney injury. Fenofibrate and losartan discontinued. Consult with nephrology. Continue IV fluids at 100 mL per hour. 4. Diabetes mellitus type 2, insulin requiring. Continue Levemir 23 units at bedtime, 7 units with meals and at bedtime and scale. 5. Hypertension. Continue Coreg 25 mg twice daily. 6. Hyperlipidemia. Continue Lipitor 20 g at bedtime. 7. Generalized anxiety disorder. Continue Xanax or 0.25 mg every 8 hours as needed. 8. History of bowel resection, stable next field DVT prophylaxis. Lovenox. 9. Gastrointestinal prophylaxis. Pepcid. Discharge plan: To be determined. We will plan to add and PT OT once respiratory status is stable Impression and plan of care have been directed as dictated by the signing physician. Annie Ba nurse practitioner acting as scribe for signing physician.
[2017-10-07 11:46] LABS: Hemoglobin A1C 5.9 % (4.0-6.0)
--- NOTE | 2017-10-07 12:15 | ECHOF ---
Referral Reason:LVF MEASUREMENTS -------- HEIGHT: 165.1 cm WEIGHT: 73.0 kg BP: 123/54 RVIDd: 2.5 cm (< 3.3) IVSd: 1.2 cm (0.6 - 1.1) LVIDd: 3.9 cm (3.9 - 5.3) LVPWd: 1.1 cm (0.6 - 1.1) IVSs: 1.3 cm LVIDs: 3.3 cm LVPWs: 1.4 cm LA Diam: 3.9 cm (2.7 - 3.8) LAESV Index (A-L): 29.97 ml/m Ao Diam: 3.2 cm (2.0 - 3.7) AV Cusp: 1.9 cm (1.5 - 2.6) LA Diam: 4.2 cm (2.7 - 3.8) MV EXCURSION: 8.330 mm (> 18.000) MV EF SLOPE: 26 mm/s (70 - 150) EPSS: 0.4 cm MV E Tavon: 1.53 m/s MV DecT: 388 ms MV A Tavon: 1.20 m/s MV E/A Ratio: 1.27 AV maxP.24 mmHg AV meanP.73 mmHg RAP: 5.00 mmHg RVSP: 44.69 mmHg FINDINGS -------- Sinus rhythm. This was a technically adequate study. There is mild concentric left ventricular hypertrophy. Overall left ventricular systolic function i s low-normal with, an EF between 50 - 55 %. The right ventricle is normal in size. The left atrial size is normal. LA is moderately dilated 34-39 ml/m2 The right atrial size is normal. There is mild aortic valve sclerosis. There is mild aortic stenosis present. Peak/mean gradient a cross the Aortic Valve is 21.24mmHg / 10.73mmHg. Mild mitral annular calcification present. Moderate mitral regurgitation is present. Mild tricuspid regurgitation present. There is mild pulmonary hypertension. The right ventricular systolic pressure, as measured by Doppler, is 44.69mmHg. There is no pulmonic regurgitation present. The aortic root size is normal. Echo free space represents a pericardial fat pad. CONCLUSIONS -------- 1. Sinus rhythm. 2. This was a technically adequate study. 3. There is mild concentric left ventricular hypertrophy. 4. Overall left ventricular systolic function is low-normal with, an EF between 50 - 55 %. 5. The right ventricle is normal in size. 6. The left atrial size is normal. 7. LA is moderately dilated 34-39 ml/m2 8. The right atrial size is normal. 9. There is mild aortic valve sclerosis. 10. There is mild aortic stenosis present. 11. Peak/mean gradient across the Aortic Valve is 21.24mmHg / 10.73mmHg. 12. Mild mitral annular calcification present. 13. Moderate mitral regurgitation is present. 14. Mild tricuspid regurgitation present. 15. There is mild pulmonary hypertension. 16. The right ventricular systolic pressure, as measured by Doppler, is 44.69mmHg. 17. There is no pulmonic regurgitation present. 18. The aortic root size is normal. 19. Echo free space represents a pericardial fat pad. [facility]: Jazzmine Dorsey RDCS
--- NOTE | 2017-10-07 13:09 | NM ---
EXAMINATION TYPE: NM pul vent and perfuse DATE OF EXAM: 10/07/2017 COMPARISON: Correlation radiograph 10/07/2017 HISTORY: 72-year-old female low pulse ox, difficulty in breathing, shortness of breath TECHNIQUE: Utilizing inhalation of 67.1 mCi Tc 99m DTPA aerosol and intravenous injection of 5 mCi o f Tc 99m MAA, ventilation and perfusion images are acquired post injection in multiple projections. FINDINGS: Heterogeneous ventilation throughout the lungs. There is some clumping of inhaled tracer centrally in the airways. No mismatched perfusion defects. IMPRESSION: 1. Low probability for pulmonary embolus. 2. Ventilation images suggest COPD.
[2017-10-07] MEDS: guaiFENesin 600 MG TABLET.ER PO SCH ×2 (13:24→20:03)
[2017-10-07 13:30] LABS: Glucose,Whole Blood 120 mg/dL (75-99)
--- NOTE | 2017-10-07 14:09 | XR ---
EXAMINATION TYPE: XR chest 2V DATE OF EXAM: 10/07/2017 COMPARISON: 10/05/2012 HISTORY: 72 year-old female shortness of breath and COPD TECHNIQUE: Frontal and lateral views FINDINGS: Heart mildly enlarged. Diffuse interstitial and vascular prominence. Focal bibasilar densities increa sed from prior. No significant pleural effusion is seen. IMPRESSION: 1. COPD. Correlate to exclude superimposed mild CHF. 2. Focal patchy bibasilar densities, right greater than left could represent areas of atelectasis or pneumonia.
--- NOTE | 2017-10-07 14:59 | US ---
EXAMINATION TYPE: US kidneys/renal and bladder DATE OF EXAM: 10/07/2017 COMPARISON: Complete abdominal ultrasound November 24, 2012 CLINICAL HISTORY: rf. Abnormal lab values EXAM MEASUREMENTS: Right Kidney: 9.4 x 3.9 x 4.3 cm Left Kidney: 9.3 x 4.1 x 4.4 cm Right Kidney: No hydronephrosis or masses seen Left Kidney: cyst seen measuring 1.4 x 1.1 x 1.4cm, inferior and lateral views obscured by bowel ga s Bladder: not visualized There is no evidence for hydronephrosis at this point in time. No nephrolithiasis is seen. No new s uspicious solid or cystic masses are identified. Stable simple appearing 1.4 x 1.1 cm cyst or pole l evel left kidney is felt present. The urinary bladder is collapsed and thus suboptimally evaluated. Bilateral ureteral jets are not seen. IMPRESSION: No hydronephrosis is evident bilaterally.
--- NOTE | 2017-10-07 15:13 | CONS ---
CONSULTATION REASON FOR CONSULT: Renal failure. HISTORY OF PRESENT ILLNESS: Patient is a 72-year-old female with history of COPD, on home insulin, she also has type 2 diabetes, hypertension. The patient presented to the hospital with complaints of weakness. She was also more short of breath with some cough. No significant fever. The patient has been started on antibiotics. She states she is feeling better. The serum creatinine was 3.24 mg/dL on initial admission. It is down to 1.9 now. The patient is maintained on a bicarb drip and saline at 100 mL an hour. She has been voiding. At home, patient was not on any NARCISA inhibitors. She was on angiotensin receptor blockers. She denies use of any nonsteroidal anti-inflammatory agents. Blood pressure has been slightly on the lower side. PAST MEDICAL HISTORY: COPD, oxygen dependent, type 2 diabetes, hypertension, hyperlipidemia, osteoarthritis. PAST SURGICAL HISTORY: Hysterectomy, bowel resection for colon perforation, ileostomy with reversal, left femoral surgery for fracture. SOCIAL HISTORY: Patient quit smoking about a year ago. No history of drug abuse or alcohol abuse. MEDICATIONS: Medications at home prior to admission include Xanax, vitamin C, Lipitor, Coreg, vitamin D3, insulin, losartan, Co Q10, omega-3 fatty acids. ALLERGIES: None. REVIEW OF SYSTEMS: As per HPI. Other systems negative. PHYSICAL EXAMINATION: Patient is comfortable, awake, alert, oriented x3. She is not in any acute distress. Blood pressure is 138/64 from yesterday. Heart rate 88 per minute. She is afebrile. Examination of the heart: S1, S2. Blood pressure is 123/54 this morning. Examination of the lungs: Decreased breath sounds at bases. Abdomen is soft, nontender. Examination lower extremities shows no evidence of edema. CALL TAKER exam is grossly intact. Patient moving all 4 extremities. LAB: Show sodium 142, potassium 4.2, chloride 111, CO2 is 18, BUN 58, serum creatinine 1.9, hemoglobin 10.2 g/dL. ASSESSMENT: 1. Acute kidney injury prerenal currently improved significantly with IV hydration. Serum creatinine down from 3.2 to 1.9 mg/dL. Patient has had good urine output. She is voiding on her own. She is maintained on IV fluids. The losartan is on hold for now and I will continue to hold it as her blood pressure remains on the lower side. 2. Hypertension, blood pressure currently on the lower side. 3. Chronic obstructive pulmonary disease with exacerbation. 4. Possible pneumonia maintained on empiric antibiotics. 5. Non gap metabolic acidosis, possibly related to the renal failure, currently improved. Patient is maintained on bicarb drip. PLAN: Continue the bicarb. I will discontinue the normal saline. Repeat labs in a.m. and if her acidosis is improved, we can switch to half-normal saline. Check urinalysis and check ultrasound of the kidneys. Thank you for this consultation. We will continue to follow the patient with you during her hospitalization. MMODL / ELIOTN: [id number] /
[2017-10-07] MEDS: ALPRAZolam 0.25 MG TAB PO PRN (16:32)
[2017-10-07 17:41] LABS: Glucose,Whole Blood 182 mg/dL (75-99)
[2017-10-07] MEDS: AZITHROMYCIN 500 MG TAB PO SCH (17:53)
[2017-10-07] MEDS: MONTELUKAST 10 MG TAB PO SCH (20:02)
[2017-10-07] MEDS: ATORVASTATIN 20 MG TAB PO SCH (20:02)
[2017-10-07] MEDS: cefTRIAXone IN SWFI 1,000 MG/10 ML SYRINGE IVP SCH (20:03)
[2017-10-07 20:53] LABS: Glucose,Whole Blood 201 mg/dL (75-99)
[2017-10-07] MEDS: INSULIN DETEMIR 100 UNIT/ML 10 ML VIAL SQ SCH (21:25)
[2017-10-07 23:52] LABS: Appearance,Urine Cloudy (Clear); Bacteria,Urine Rare /hpf; Bilirubin,Urine Negative (Negative); Blood,Urine Moderate (Negative); Color,Urine Yellow; Glucose,Urine (UA) Negative (Negative); Ketones,Urine Negative (Negative); Leukocyte Esterase,Urine Trace (Negative); Mucus,Urine Rare /hpf; Nitrite,Urine Negative (Negative); PH, Urine 5.5 (5.0-8.0); Protein,Urine Trace (Negative); RBC,Urine 9 /hpf (0-5); Specific Gravity,Urine 1.019 (1.001-1.035); Squamous Epithelial Cell,Urine 6 /hpf (0-4); Urobilinogen,Urine <2.0 mg/dL (<2.0); WBC,Urine 16 /hpf (0-5)
[2017-10-08] MEDS: methylPREDNISolone SOD SUCCI 125 MG/2 ML VIAL IV SCH ×4 (05:56→23:54)
[2017-10-08 07:28] LABS: Glucose,Whole Blood 110 mg/dL (75-99)
[2017-10-08] MEDS: IPRATROPIUM-ALBUTEROL 3 ML NEB INHALATION SCH ×4 (07:31→19:45)
[2017-10-08] MEDS: BUDESONIDE 0.5 MG/2 ML NEBU INHALATION SCH ×2 (07:31→19:45)
[2017-10-08] MEDS: INSULIN ASPART 100 UNIT/ML 1 ML 10 ML VIAL SQ SCH ×8 (08:06→21:35)
[2017-10-08] MEDS: guaiFENesin 600 MG TABLET.ER PO SCH ×2 (08:06→21:30)
[2017-10-08] MEDS: CHOLECALCIFEROL 1,000 UNIT TAB PO SCH (08:07)
[2017-10-08] MEDS: HEPARIN SODIUM,PORCINE 5,000 UNIT/ML 1 ML VIAL SQ SCH ×2 (08:07→21:30)
[2017-10-08] MEDS: ASPIRIN 81 MG PO SCH (08:07)
[2017-10-08] MEDS: ASCORBIC ACID 500 MG TAB PO SCH (08:07)
[2017-10-08] MEDS: CARVEDILOL 12.5 MG TAB PO SCH ×2 (08:07→18:15)
[2017-10-08] MEDS: FAMOTIDINE 20 MG TAB PO SCH (08:12)
[2017-10-08] MEDS: DEXTROSE 5% IN WATER 1,000 ML with SODIUM BICARB (1 MEQ/ML) 150 ML IV SCH (09:56)
[2017-10-08 10:21] LABS: HCT 32.9 % (34.0-46.0); HGB 11.3 gm/dL (11.4-16.0); MCH 30.9 pg (25.0-35.0); MCHC 34.2 g/dL (31.0-37.0); MCV 90.3 fL (80.0-100.0); Mean Platelet Volume 8.4; Platelet Count 210 k/uL (150-450); RBC 3.65 m/uL (3.80-5.40); RDW 13.5 % (11.5-15.5); WBC 8.2 k/uL (3.8-10.6)
--- NOTE | 2017-10-08 10:29 | CDI ---
Last Revision, March 2017 Documentation Clarification Form Date: 10/08/2017 10:25:00 AM From: Charlotte LeighROLANDO, CCDS Admit Date: 10/05/2017 7:57:00 PM Patient Name: Glenny Rodriguez Visit Number: [id number] Discharge Date: ATTENTION: The Clinical Documentation Specialists (CDI) and [facility] Coding Staff appreciate your assistance in clarifying documentation. Please respond to the clarification below the line at the bottom and electronically sign. The CDI & [facility] Coding staff will review the response and follow-up if needed. Please note: Queries are made part of the Legal Health Record. If you have any questions, please contact the author of this message via ITS. Dr. Ortiz Freeman: Acute on chronic renal failure is documented in the pulmonary consult and also in the 10/07 pulmonary progress note. History/Risk Factors: COPD, IDDM II, Hypertension, Hyperlipidemia and Osteoarthritis. Patients baseline BUN/CR/GFR: Unknown or not documented. Clinical Indicators: Admission BUN/Cr/GFR: 56 / 3.24 / 14 Curent BUN/Cr/GFR: 58 / 1.90 / 26 Treatment: IV fluid rate 100, IV fluid bolus x1, IV Solumedrol, IV Azithromycin & Rocephin & IV NaBicarb. Consults: Nephrology (chronic renal failure is not documented) In order to capture the severity of condition, please clarify if the condition signifies: Chronic renal failure o CKD Stage 1 GFR >90 o CKD Stage 2 GFR 60-89 o CKD Stage 3 GFR 30-59 o CKD Stage 4 GFR 15-29 o CKD Stage 5 GFR <15 o ESRD Other, please specify Unable to determine -X Please continue to document in your progress notes and discharge summary in order to capture severity of illness and risk of mortality. Include clinical findings that support your diagnosis. unable to determine MTDD
[2017-10-08 11:03] LABS: Calcium 9.4 mg/dL (8.4-10.2); Potassium 4.2 mmol/L (3.5-5.1)
--- NOTE | 2017-10-08 11:36 | P.PN ---
Subjective Progress Note Date: 10/08/17 HPI: Glenny Rodriguez is a 72-year-old female who presented to the ED at [facility] on 10/05/2017. At that time the patient had been having increasing shortness of breath for about 5 days' duration. She had been having some wheezing. She had an inhaler at home. She also had breathing treatments and does not remember the medication she uses. She continued to worsen. She denies any fevers or chills. She was subsequently seen in the ED and admitted for further evaluation and management. 10/07/2017- patient is being seen examined and evaluated today on rounds. Patient continues on high flow nasal cannula at 50 L an FiO2 of 65%. She did have a CT of the chest which did show bilateral petrolatum infiltrates with scarring and atelectasis as well as an old inflammatory disease. Dopplers of her bilateral lower extremities were negative for any DVTs. The patient is going for a VQ scan and echocardiogram this afternoon. Upon examination the patient states she feels her breathing is somewhat better today. She continues to have a cough which was productive at 1. with yellow sputum however she's having a hard time getting up sputum currently. We will send for a sputum culture. She is afebrile no further complaints. 10/08/17- patient is being seen examined and evaluated today on rounds. She continues on high flow nasal cannula. Flow rate of 50 L and her FiO2 has been weaned down to 55%. We will continue to wean down her oxygen demands as tolerated. Her chest x-ray was reviewed and does show COPD with possible mild CHF, with focal patchy bibasilar densities, right greater than left could represent areas of atelectasis or pneumonia. Also she went for an ultrasound of the abdomen yesterday and did show a stable 1.41.1 cm cyst in the left kidney. Nephrology is following. She is afebrile no further complaints Objective - Vital Signs Vital signs: Vital Signs Temp 98.0 F 10/08/17 05:30 Pulse 56 L 10/08/17 11:19 Resp 16 10/08/17 05:30 BP 146/67 10/08/17 05:30 Pulse Ox 94 L 10/08/17 05:30 Intake & Output 10/07/17 10/08/17 10/08/17 18:59 06:59 18:59 Intake Total 200 Balance 200 Intake: Oral 200 Other: Voiding Method Bedside Commode Bedside Commode # Voids 2 2 # Bowel Movements 3 2 - Exam GENERAL EXAM: Alert, active, comfortable in no apparent distress. HEAD: Normocephalic. EYES: Normal reaction of pupils, equal size. NOSE: Clear with pink turbinates. THROAT: No erythema or exudates. NECK: No masses, no JVD. CHEST: No chest wall deformity. LUNGS: Decreased breath sounds with prolonged expiration and expiratory wheeze. CVS: S1 and S2 normal with no audible mumurs, regular rhythm. ABDOMEN: No hepatosplenomegaly, normal bowel sounds, no guarding or rigidity. EXTREMITIES: No edema noted, pedal pulses palpable. CENTRAL NERVOUS SYSTEM: No focal deficits, tone is normal in all 4 extremities. - Labs CBC & Chem 7: 10/08/17 09:50 10/07/17 07:18 Labs: Abnormal Lab Results - Last 24 Hours (Table) 10/07/17 10/07/17 10/07/17 Range/Units 12:57 17:20 20:52 RBC (3.80-5.40) m/uL Hgb (11.4-16.0) gm/dL Hct (34.0-46.0) % POC Glucose (mg/dL) 120 H 182 H 201 H (75-99) mg/dL Urine Appearance (Clear) Urine Protein (Negative) Urine Blood (Negative) Ur Leukocyte Esterase (Negative) Urine RBC (0-5) /hpf Urine WBC (0-5) /hpf Ur Squamous Epith Cells (0-4) /hpf Urine Bacteria (None) /hpf Urine Mucus (None) /hpf 10/07/17 10/08/17 10/08/17 Range/Units 23:00 07:20 09:50 RBC 3.65 L (3.80-5.40) m/uL Hgb 11.3 L (11.4-16.0) gm/dL Hct 32.9 L (34.0-46.0) % POC Glucose (mg/dL) 110 H (75-99) mg/dL Urine Appearance Cloudy H (Clear) Urine Protein Trace H (Negative) Urine Blood Moderate H (Negative) Ur Leukocyte Esterase Trace H (Negative) Urine RBC 9 H (0-5) /hpf Urine WBC 16 H (0-5) /hpf Ur Squamous Epith Cells 6 H (0-4) /hpf Urine Bacteria Rare H (None) /hpf Urine Mucus Rare H (None) /hpf Assessment and Plan Assessment: Assessment Acute hypoxic respiratory failure requiring high flow nasal cannula Acute exacerbation of COPD Acute exacerbation of chronic persistent asthma, baseline severity unknown Acute on chronic renal failure Possible left-sided pneumonia Plan Medications have been reviewed and will be continued as ordered. Continue antibiotics and IV steroid taper Singulair and Mucinex Obtain sputum culture VQ scan and echocardiogram today. Continue with pulmonary hygiene, coughing and deep breathing exercises, and supportive care. Supplemental oxygen to maintain oxygen saturations of 92% or better. Wean down oxygen as tolerated Continue nebulizer treatments. Initiate and encourage incentive spirometer Alpha-1 antitrypsin, ALLERGY profile, IgE level pending. CT of the chest reviewed Dopplers reviewed GI and DVT prophylaxis. We will continue to monitor labs/results and adjust treatment as necessary. Further recommendations pending. I performed an examination of the patient and discussed their management with the nurse practitioner. I have reviewed the nurse practitioner's note and agree with the documented findings and plan of care.
[2017-10-08 12:32] LABS: Glucose,Whole Blood 191 mg/dL (75-99)
--- NOTE | 2017-10-08 12:57 | P.PN ---
Subjective Progress Note Date: 10/08/17 This is a 72-year-old female patient of Dr. Frazier with past history for COPD, diabetes mellitus type 2 insulin requiring, hypertension, hyperlipidemia, generalized osteoarthritis, generalized anxiety disorder. Patient gives history that she had cold symptoms about 11 days ago and since then has had shortness of breath and a cough with sputum production. She states she has trouble walking due to previous bowel surgery. She denies having any chest pain. She states she was on oxygen at home for years ago and this was taken off and she has been doing fine until this episode. She does not follow with the pulmonary medicine doctor. She quit smoking 1 year ago and was smoking 2 packs per day for 56 years. Patient came into [facility] emergency center for evaluation. Pulse ox was 88%, patient was afebrile, respirations 26-28 and normal heart rate. White count and hemoglobin were normal. BUN 56 and creatinine 3.2, blood sugar 129. Troponin was negative. ProBNP 670. Chest x-ray reveals increasing linear infiltrate and atelectasis in the left lung. Patient was given nebulizer treatments, started on ceftriaxone and azithromycin and IV Solu- Medrol. Patient was eventually on high flow oxygen and still pulse oxing only 87%. She is now on 50 L at and FiO2 of 62% and pulse oxing 98%. Patient has not tolerated switching to regular nasal cannula. ABGs showed a pH of 7.3, CO2 31, O2 70, bicarb 15, saturation 94%. Patient was unable to go for VQ scan at this time as she could not tolerate 15 L nasal cannula. We are ordering lower extremity Doppler. 10/07: Patient is still requiring FiO2 of 65%. Ultrasound of bilateral lower extremities was negative for DVT. A d-dimer ordered this morning came back at 4.24. We will attempt to get VQ scan done today. Patient is followed by pulmonary medicine. Renal function is much improved today with BUN 15 creatinine 1.9. Her blood glucoses running between 185 and 213. Cardiac echocardiogram has been completed and report is pending. Alpha-1 antitrypsin and IgG are pending along with the [facility] IgE panel. Sputum culture has been uncollected. 10/08: VQ scan is low probability for pulmonary embolus. Echocardiogram reveals EF of 50-55% with mild concentric left ventricular hypertrophy, LV moderately dilated 34-39, mild aortic valve sclerosis, mild aortic stenosis, moderate mitral regurgitation, mild tricuspid regurgitation, mild pulmonary hypertension. Patient remains on high flow at 55% which is down from yesterday. Patient is to be weaned down on her oxygen as tolerated. Repeat chest x-ray shows COPD with possible mild heart failure and focal patchy bibasilar densities, right greater than left could represent areas of atelectasis or pneumonia. Consult with nephrology as appreciated. Plan is to continue bicarbonate and discontinue saline. Switch to half-normal saline. Renal ultrasound showed a stable 1.5 x 1.1 cm cyst in the left kidney. We will add in PT and OT for rehab evaluation. Objective - Vital Signs Vital signs: Vital Signs Temp 98.0 F 10/08/17 05:30 Pulse 60 10/08/17 07:53 Resp 16 10/08/17 05:30 BP 146/67 10/08/17 05:30 Pulse Ox 94 L 10/08/17 05:30 Intake & Output 10/07/17 10/08/17 10/08/17 18:59 06:59 18:59 Intake Total 200 Balance 200 Intake: Oral 200 Other: Voiding Method Bedside Commode Bedside Commode # Voids 2 2 # Bowel Movements 3 2 - Exam Gen: This is a 72-year-old female patient. She is sitting on edge of the bed with FiO2 of 62% with some dyspnea and accessory muscle usage. HEENT: Head is atraumatic, normocephalic. Pupils equal, round. Sclerae is anicteric. NECK: Supple. No JVD. No lymphadenopathy. No thyromegaly. LUNGS: Diminished/silent lung sounds throughout. No wheezing. No intercostal retractions and accessory muscle usage.. HEART: Regular rate and rhythm. No murmur. ABDOMEN: Soft. Bowel sounds are present. No masses. No tenderness. EXTREMITIES: No pedal edema. No calf tenderness. NEUROLOGICAL: Patient is awake, alert and oriented x3. Cranial nerves 2 through 12 are grossly intact. - Labs CBC & Chem 7: 10/08/17 09:50 10/08/17 09:50 Labs: Abnormal Lab Results - Last 24 Hours (Table) 10/07/17 10/07/17 10/07/17 Range/Units 10:07 12:57 17:20 D-Dimer 4.24 H (<0.60) mg/L FEU POC Glucose (mg/dL) 120 H 182 H (75-99) mg/dL Urine Appearance (Clear) Urine Protein (Negative) Urine Blood (Negative) Ur Leukocyte Esterase (Negative) Urine RBC (0-5) /hpf Urine WBC (0-5) /hpf Ur Squamous Epith Cells (0-4) /hpf Urine Bacteria (None) /hpf Urine Mucus (None) /hpf 10/07/17 10/07/17 10/08/17 Range/Units 20:52 23:00 07:20 D-Dimer (<0.60) mg/L FEU POC Glucose (mg/dL) 201 H 110 H (75-99) mg/dL Urine Appearance Cloudy H (Clear) Urine Protein Trace H (Negative) Urine Blood Moderate H (Negative) Ur Leukocyte Esterase Trace H (Negative) Urine RBC 9 H (0-5) /hpf Urine WBC 16 H (0-5) /hpf Ur Squamous Epith Cells 6 H (0-4) /hpf Urine Bacteria Rare H (None) /hpf Urine Mucus Rare H (None) /hpf Assessment and Plan Plan: 1. Acute COPD exacerbation with possible left sided pneumonia, probable gram- negative pneumonia. Consult with Dr. Pete guerrero. Continue DuoNeb treatments 4 times daily, and azithromycin, ceftriaxone, Solu-Medrol 60 mg IV every 6 hours, Pulmicort 0.5 mg twice daily, Mucinex. 2. Acute hypoxic respiratory failure. Patient is currently on oxygen by nasal cannula at 50 L with FiO2 of 65%. Patient is unable to undergo CTA of the chest to rule out PE due to renal failure and VQ scan due to oxygen needs. Elevated d-dimer. VQ scan low probability for PE. Patient most likely will require home oxygen. 3. Acute kidney injury. Fenofibrate and losartan discontinued. Consult with nephrology. Continue IV fluids at 100 mL per hour. 4. Diabetes mellitus type 2, insulin requiring. Continue Levemir 23 units at bedtime, 7 units with meals and at bedtime and scale. 5. Hypertension. Continue Coreg 25 mg twice daily. 6. Hyperlipidemia. Continue Lipitor 20 g at bedtime. 7. Generalized anxiety disorder. Continue Xanax or 0.25 mg every 8 hours as needed. 8. History of bowel resection, stable next field DVT prophylaxis. Lovenox. 9. Gastrointestinal prophylaxis. Pepcid. Discharge plan: Home with [facility]. PT and OT to evaluate for rehab. Impression and plan of care have been directed as dictated by the signing physician. Annie Ba nurse practitioner acting as scribe for signing physician.
[2017-10-08 13:06] LABS: Alt. alternata IgE Class CLASS 0; Alternaria alternata IgE <0.35 kU/L (<0.35); Asperg. fumagatus IgE <0.35 kU/L (<0.35); Asperg. fumagatus IgE Class CLASS 0; Bermuda Grass IgE <0.35 kU/L (<0.35); Birch(Com.Silvr) IgE <0.35 kU/L (<0.35); Birch(Com.Silvr) IgE Class CLASS 0; Cat Epith & Dander IgE <0.35 kU/L (<0.35); Cat Epith & Dander IgE Class CLASS 0; Clad herbarum IgE <0.35 kU/L (<0.35); Cockroach IgE <0.35 kU/L (<0.35); Cottonwood IgE <0.35 kU/L (<0.35); Dermato. Pteronyssinus IgE <0.35 kU/L (<0.35); Dermato. farinae IgE <0.35 kU/L (<0.35); Dermato. farinae IgE Class CLASS 0; Dog Dander IgE <0.35 kU/L (<0.35); Elm IgE <0.35 kU/L (<0.35); Maple (Box Elder) IgE <0.35 kU/L (<0.35); Maple (Box Elder) IgE Class CLASS 0; Mountain Cedar IgE <0.35 kU/L (<0.35); Mountain Cedar IgE Class CLASS 0; Mouse Urine IgE Class CLASS 0; Nettle IgE <0.35 kU/L (<0.35); Nettle IgE Class CLASS 0; Oak IgE <0.35 kU/L (<0.35); Penicillium notatum IgE Class CLASS 0; Rough Marshelder IgE <0.35 kU/L (<0.35); Rough Marshelder IgE Class CLASS 0; Timothy Grass IgE <0.35 kU/L (<0.35); White Ash IgE Class CLASS 0
--- NOTE | 2017-10-08 14:53 | PN ---
PROGRESS NOTE Patient is seen for followup for acute kidney injury. Renal function has improved. Serum creatinine is down to 1.49 today. The patient was maintained on IV fluids. States she is feeling much better and the patient also had significant metabolic acidosis, which has significantly improved. PHYSICAL EXAMINATION: Blood pressure is 146/67, heart rate 58 per minute. The patient is afebrile. Examination of the heart S1, S2. Examination of the lungs bilateral breath sounds are heard. Abdomen is soft, nontender. Examination of the lower extremities shows no evidence of edema. [employer] exam is grossly intact. Patient is moving all 4 extremities. LAB: Show sodium of 146, potassium 4.2, chloride 108, BUN 55, serum creatinine 1.49, hemoglobin 11.3 g/dL. ASSESSMENT: 1. Acute kidney injury, prerenal, currently significantly improved. 2. Severe metabolic acidosis, currently maintained on IV bicarb. This is mainly non gap metabolic acidosis. I will discontinue the bicarb drip. The patient is encouraged to maintain good oral intake. She can be discharged from nephrology standpoint. 3. Possible pneumonia, maintained on empiric antibiotics. 4. Chronic obstructive pulmonary disease with exacerbation. 5. Hypertension, currently controlled. Patient is on Coreg. PLAN: 1. DC IV bicarb. 2. Continue to encourage increased oral intake. 3. Repeat labs in a.m. MMODL / IJN: [id number] /
[2017-10-08 17:13] LABS: Glucose,Whole Blood 220 mg/dL (75-99)
[2017-10-08] MEDS: AZITHROMYCIN 500 MG TAB PO SCH (18:16)
[2017-10-08 20:43] LABS: Glucose,Whole Blood 274 mg/dL (75-99)
[2017-10-08] MEDS: MONTELUKAST 10 MG TAB PO SCH (21:30)
[2017-10-08] MEDS: ATORVASTATIN 20 MG TAB PO SCH (21:30)
[2017-10-08] MEDS: cefTRIAXone IN SWFI 1,000 MG/10 ML SYRINGE IVP SCH (21:34)
[2017-10-08] MEDS: INSULIN DETEMIR 100 UNIT/ML 10 ML VIAL SQ SCH (21:34)
[2017-10-08] MEDS: ALPRAZolam 0.25 MG TAB PO PRN (21:34)
[2017-10-09] MEDS: methylPREDNISolone SOD SUCCI 125 MG/2 ML VIAL IV SCH ×2 (06:29→12:44)
[2017-10-09] MEDS: BUDESONIDE 0.5 MG/2 ML NEBU INHALATION SCH ×2 (07:18→19:32)
[2017-10-09] MEDS: IPRATROPIUM-ALBUTEROL 3 ML NEB INHALATION SCH ×4 (07:18→19:32)
[2017-10-09 07:21] LABS: Glucose,Whole Blood 92 mg/dL (75-99)
[2017-10-09] MEDS: INSULIN ASPART 100 UNIT/ML 1 ML 10 ML VIAL SQ SCH ×8 (07:47→21:35)
[2017-10-09] MEDS: CARVEDILOL 12.5 MG TAB PO SCH ×2 (07:48→17:41)
[2017-10-09] MEDS: CHOLECALCIFEROL 1,000 UNIT TAB PO SCH (07:49)
[2017-10-09] MEDS: guaiFENesin 600 MG TABLET.ER PO SCH ×2 (07:50→21:20)
[2017-10-09] MEDS: ASPIRIN 81 MG PO SCH (07:50)
[2017-10-09] MEDS: FAMOTIDINE 20 MG TAB PO SCH (07:50)
[2017-10-09] MEDS: ASCORBIC ACID 500 MG TAB PO SCH (07:50)
[2017-10-09] MEDS: HEPARIN SODIUM,PORCINE 5,000 UNIT/ML 1 ML VIAL SQ SCH ×2 (07:51→21:21)
--- NOTE | 2017-10-09 08:47 | CDI ---
Last Revision, March 2017 Documentation Clarification Form Date: 10/09/2017 8:44:00 AM From: Charlotte AndersonLeighROLANDO samuel, CCDS Admit Date: 10/05/2017 7:57:00 PM Patient Name: Glenny Rodriguez Visit Number: [id number] Discharge Date: ATTENTION: The Clinical Documentation Specialists (CDI) and [facility] Coding Staff appreciate your assistance in clarifying documentation. Please respond to the clarification below the line at the bottom and electronically sign. The CDI & [facility] Coding staff will review the response and follow-up if needed. Please note: Queries are made part of the Legal Health Record. If you have any questions, please contact the author of this message via ITS. Dr. Ermelinda Robles: Acute on chronic renal failure is documented in the pulmonary consult and also in the 10/07 pulmonary progress note, pulmonary is unable to determine the stage of the patient's CKD if evident. History/Risk Factors: COPD, IDDM II, Hypertension, Hyperlipidemia and Osteoarthritis. Patients baseline BUN/CR/GFR: Unknown or not documented. Clinical Indicators: Admission BUN/Cr/GFR: 56 / 3.24 / 14 Curent BUN/Cr/GFR: 58 / 1.90 / 26 Treatment: IV fluid rate 100, IV fluid bolus x1, IV Solumedrol, IV Azithromycin Rocephin IV NaBicarb. Consults: Nephrology (chronic renal failure is not documented) In order to capture the severity of condition, please clarify if the condition signifies: Chronic renal failure o CKD Stage 1 GFR >90 o CKD Stage 2 GFR 60-89 o CKD Stage 3 GFR 30-59 o CKD Stage 4 GFR 15-29 o CKD Stage 5 GFR <15 o ESRD Other, please specify Unable to determine Please continue to document in your progress notes and discharge summary in order to capture severity of illness and risk of mortality. Include clinical findings that support your diagnosis. MTDD
[2017-10-09 08:57] LABS: Potassium 3.8 mmol/L (3.5-5.1)
[2017-10-09 10:25] LABS: Alpha 1 Anti-Trypsin 212 mg/dL (90 - 200)
[2017-10-09 11:31] LABS: Glucose,Whole Blood 240 mg/dL (75-99)
--- NOTE | 2017-10-09 12:58 | P.PN ---
Subjective Progress Note Date: 10/09/17 This is a 72-year-old female patient of Dr. Frazier with past history for COPD, diabetes mellitus type 2 insulin requiring, hypertension, hyperlipidemia, generalized osteoarthritis, generalized anxiety disorder. Patient gives history that she had cold symptoms about 11 days ago and since then has had shortness of breath and a cough with sputum production. She states she has trouble walking due to previous bowel surgery. She denies having any chest pain. She states she was on oxygen at home for years ago and this was taken off and she has been doing fine until this episode. She does not follow with the pulmonary medicine doctor. She quit smoking 1 year ago and was smoking 2 packs per day for 56 years. Patient came into [facility] emergency center for evaluation. Pulse ox was 88%, patient was afebrile, respirations 26-28 and normal heart rate. White count and hemoglobin were normal. BUN 56 and creatinine 3.2, blood sugar 129. Troponin was negative. ProBNP 670. Chest x-ray reveals increasing linear infiltrate and atelectasis in the left lung. Patient was given nebulizer treatments, started on ceftriaxone and azithromycin and IV Solu- Medrol. Patient was eventually on high flow oxygen and still pulse oxing only 87%. She is now on 50 L at and FiO2 of 62% and pulse oxing 98%. Patient has not tolerated switching to regular nasal cannula. ABGs showed a pH of 7.3, CO2 31, O2 70, bicarb 15, saturation 94%. Patient was unable to go for VQ scan at this time as she could not tolerate 15 L nasal cannula. We are ordering lower extremity Doppler. 10/07: Patient is still requiring FiO2 of 65%. Ultrasound of bilateral lower extremities was negative for DVT. A d-dimer ordered this morning came back at 4.24. We will attempt to get VQ scan done today. Patient is followed by pulmonary medicine. Renal function is much improved today with BUN 15 creatinine 1.9. Her blood glucoses running between 185 and 213. Cardiac echocardiogram has been completed and report is pending. Alpha-1 antitrypsin and IgG are pending along with the [facility] IgE panel. Sputum culture has been uncollected. 10/08: VQ scan is low probability for pulmonary embolus. Echocardiogram reveals EF of 50-55% with mild concentric left ventricular hypertrophy, LV moderately dilated 34-39, mild aortic valve sclerosis, mild aortic stenosis, moderate mitral regurgitation, mild tricuspid regurgitation, mild pulmonary hypertension. Patient remains on high flow at 55% which is down from yesterday. Patient is to be weaned down on her oxygen as tolerated. Repeat chest x-ray shows COPD with possible mild heart failure and focal patchy bibasilar densities, right greater than left could represent areas of atelectasis or pneumonia. Consult with nephrology as appreciated. Plan is to continue bicarbonate and discontinue saline. Switch to half-normal saline. Renal ultrasound showed a stable 1.5 x 1.1 cm cyst in the left kidney. We will add in PT and OT for rehab evaluation. 10/09: Patient is still on FiO2 of 55 and unable to tolerate any weaning. She states her lungs are feeling better today and she actually wants to go home today but patient cannot be discharged at this point. BUN [address] Tan would like to do a CTA of the chest once renal function improves. Solu-Medrol was decreased to 40 mg every 8 hours. Objective - Vital Signs Vital signs: Vital Signs Temp 98.0 F 10/09/17 06:30 Pulse 64 10/09/17 10:56 Resp 16 10/09/17 06:30 BP 162/73 10/09/17 06:30 Pulse Ox 90 L 10/09/17 07:18 Intake & Output 10/08/17 10/09/17 10/09/17 18:59 06:59 18:59 Intake Total 200 Balance 200 Intake: Oral 200 Other: Voiding Method Bedside Commode # Voids 3 4 # Bowel Movements 3 1 - Exam Gen: This is a 72-year-old female patient. She is sitting on edge of the bed with FiO2 of 62% with some dyspnea and accessory muscle usage. HEENT: Head is atraumatic, normocephalic. Pupils equal, round. Sclerae is anicteric. NECK: Supple. No JVD. No lymphadenopathy. No thyromegaly. LUNGS: Diminished/silent lung sounds throughout. No wheezing. No intercostal retractions and accessory muscle usage.. HEART: Regular rate and rhythm. No murmur. ABDOMEN: Soft. Bowel sounds are present. No masses. No tenderness. EXTREMITIES: No pedal edema. No calf tenderness. NEUROLOGICAL: Patient is awake, alert and oriented x3. Cranial nerves 2 through 12 are grossly intact. - Labs CBC & Chem 7: 10/08/17 09:50 10/09/17 07:24 Labs: Abnormal Lab Results - Last 24 Hours (Table) 10/07/17 10/08/17 10/08/17 Range/Units 07:18 17:10 20:39 Chloride (98-107) mmol/L BUN (7-17) mg/dL Creatinine (0.52-1.04) mg/dL POC Glucose (mg/dL) 220 H 274 H (75-99) mg/dL [id number] 212 H (90 - 200) mg/dL IgE 164.0 H (<114.0) IU/mL 10/09/17 10/09/17 Range/Units 07:24 11:30 Chloride 108 H (98-107) mmol/L BUN 51 H (7-17) mg/dL Creatinine 1.40 H (0.52-1.04) mg/dL POC Glucose (mg/dL) 240 H (75-99) mg/dL [id number] (90 - 200) mg/dL IgE (<114.0) IU/mL Assessment and Plan Plan: 1. Acute COPD exacerbation with possible left sided pneumonia, probable gram- negative pneumonia. Consult with Dr. Pete guerrero. Continue DuoNeb treatments 4 times daily, and azithromycin, ceftriaxone, Solu-Medrol 40 mg IV every 8 hours, Pulmicort 0.5 mg twice daily, Mucinex. 2. Acute hypoxic respiratory failure. Patient is currently on oxygen by nasal cannula at 50 L with FiO2 of 65%. Patient is unable to undergo CTA of the chest to rule out PE due to renal failure and VQ scan due to oxygen needs. Elevated d-dimer. VQ scan low probability for PE. Patient most likely will require home oxygen. 3. Acute kidney injury. Fenofibrate and losartan discontinued. Consult with nephrology. Continue IV fluids at 100 mL per hour. 4. Diabetes mellitus type 2, insulin requiring. Continue Levemir 23 units at bedtime, 7 units with meals and at bedtime and scale. 5. Hypertension. Continue Coreg 25 mg twice daily. 6. Hyperlipidemia. Continue Lipitor 20 g at bedtime. 7. Generalized anxiety disorder. Continue Xanax or 0.25 mg every 8 hours as needed. 8. History of bowel resection, stable next field DVT prophylaxis. Lovenox. 9. Gastrointestinal prophylaxis. Pepcid. Discharge plan: Home with [facility]. PT and OT to evaluate for rehab. Impression and plan of care have been directed as dictated by the signing physician. Annie Ba nurse practitioner acting as scribe for signing physician.
--- NOTE | 2017-10-09 13:11 | P.PN ---
Subjective Progress Note Date: 10/09/17 HPI: Glenny Rodriguez is a 72-year-old female who presented to the ED at [facility] on 10/05/2017. At that time the patient had been having increasing shortness of breath for about 5 days' duration. She had been having some wheezing. She had an inhaler at home. She also had breathing treatments and does not remember the medication she uses. She continued to worsen. She denies any fevers or chills. She was subsequently seen in the ED and admitted for further evaluation and management. 10/07/2017- patient is being seen examined and evaluated today on rounds. Patient continues on high flow nasal cannula at 50 L an FiO2 of 65%. She did have a CT of the chest which did show bilateral petrolatum infiltrates with scarring and atelectasis as well as an old inflammatory disease. Dopplers of her bilateral lower extremities were negative for any DVTs. The patient is going for a VQ scan and echocardiogram this afternoon. Upon examination the patient states she feels her breathing is somewhat better today. She continues to have a cough which was productive at 1. with yellow sputum however she's having a hard time getting up sputum currently. We will send for a sputum culture. She is afebrile no further complaints. 10/08/17- patient is being seen examined and evaluated today on rounds. She continues on high flow nasal cannula. Flow rate of 50 L and her FiO2 has been weaned down to 55%. We will continue to wean down her oxygen demands as tolerated. Her chest x-ray was reviewed and does show COPD with possible mild CHF, with focal patchy bibasilar densities, right greater than left could represent areas of atelectasis or pneumonia. Also she went for an ultrasound of the abdomen yesterday and did show a stable 1.41.1 cm cyst in the left kidney. Nephrology is following. She is afebrile no further complaints 10/09/17- patient is being seen examined and evaluated today on rounds. She is resting up in bed on high flow nasal cannula 50 L an FiO2 of 55%. Repeat chest xray ordered. Oxygen to be weaned down to keep saturations above 88%. Continue with PT/OT. labs and reports reviewed, kindey function continue to improve, Will possibly order a CTA once kindey function normalizes. Objective - Vital Signs Vital signs: Vital Signs Temp 98.0 F 10/09/17 06:30 Pulse 64 10/09/17 10:56 Resp 16 10/09/17 06:30 BP 162/73 10/09/17 06:30 Pulse Ox 90 L 10/09/17 07:18 Intake & Output 10/08/17 10/09/17 10/09/17 18:59 06:59 18:59 Intake Total 200 Balance 200 Intake: Oral 200 Other: Voiding Method Bedside Commode # Voids 3 4 # Bowel Movements 3 1 - Exam GENERAL EXAM: Alert, active, comfortable in no apparent distress. HEAD: Normocephalic. EYES: Normal reaction of pupils, equal size. NOSE: Clear with pink turbinates. THROAT: No erythema or exudates. NECK: No masses, no JVD. CHEST: No chest wall deformity. LUNGS: Decreased breath sounds with prolonged expiration and expiratory wheeze. CVS: S1 and S2 normal with no audible mumurs, regular rhythm. ABDOMEN: No hepatosplenomegaly, normal bowel sounds, no guarding or rigidity. EXTREMITIES: No edema noted, pedal pulses palpable. CENTRAL NERVOUS SYSTEM: No focal deficits, tone is normal in all 4 extremities. - Labs CBC & Chem 7: 10/08/17 09:50 10/09/17 07:24 Labs: Abnormal Lab Results - Last 24 Hours (Table) 10/07/17 10/08/17 10/08/17 Range/Units 07:18 17:10 20:39 Chloride (98-107) mmol/L BUN (7-17) mg/dL Creatinine (0.52-1.04) mg/dL POC Glucose (mg/dL) 220 H 274 H (75-99) mg/dL [id number]-[id number] 212 H (90 - 200) mg/dL IgE 164.0 H (<114.0) IU/mL 10/09/17 10/09/17 Range/Units 07:24 11:30 Chloride 108 H (98-107) mmol/L BUN 51 H (7-17) mg/dL Creatinine 1.40 H (0.52-1.04) mg/dL POC Glucose (mg/dL) 240 H (75-99) mg/dL [id number]-[id number] (90 - 200) mg/dL IgE (<114.0) IU/mL Assessment and Plan Assessment: Assessment Acute hypoxic respiratory failure requiring high flow nasal cannula Acute exacerbation of COPD Acute exacerbation of chronic persistent asthma, baseline severity unknown Acute on chronic renal failure Possible left-sided pneumonia Plan Repeat chest xray today Medications have been reviewed and will be continued as ordered. Continue antibiotics and IV steroid taper Singulair and Mucinex Obtain sputum culture CTA once kidney functions improve Continue with pulmonary hygiene, coughing and deep breathing exercises, and supportive care. Supplemental oxygen to maintain oxygen saturations of 88% or better. Wean down oxygen as tolerated Continue nebulizer treatments. Initiate and encourage incentive spirometer Alpha-1 antitrypsin, ALLERGY profile, IgE level reviewed CT of the chest reviewed Dopplers reviewed GI and DVT prophylaxis. We will continue to monitor labs/results and adjust treatment as necessary. Further recommendations pending. I performed an examination of the patient and discussed their management with the nurse practitioner. I have reviewed the nurse practitioner's note and agree with the documented findings and plan of care.
--- NOTE | 2017-10-09 14:15 | PN ---
PROGRESS NOTE Patient is seen for followup for acute kidney injury, which is appears to be mainly prerenal. Renal function continues to improve. Serum creatinine is down to 1.4 today. It was 3.24 on initial admission. Currently patient is off of IV fluids. He remains with high amount of oxygen requirement. PHYSICAL EXAMINATION: Blood pressure is 162/73, heart rate 60 per minute. The patient is afebrile. Examination of the heart S1, S2. Examination of the lungs bilateral breath sounds are heard. Abdomen is soft, nontender. Examination of lower extremities shows no significant edema. Skin exam is grossly intact. LAB DATA: Sodium 144, potassium 3.8, chloride 108, BUN 51, serum creatinine 1.4. ASSESSMENT: 1. Acute kidney injury, prerenal, currently significantly improved. 2. Possible pneumonia maintained on empiric antibiotics. 3. Chronic obstructive pulmonary disease with exacerbation, slowly improving, still requiring high amount of oxygen. 4. Severe metabolic acidosis on initial admission mainly non gap, currently improved. Etiology is likely from the renal failure. 5. Rule out chronic kidney disease. At this time, we do not have any prior labs available for comparison. The patient will need outpatient followup. MMODL / IJN: [id number] /
--- NOTE | 2017-10-09 15:27 | XR ---
EXAMINATION TYPE: XR chest 1V portable DATE OF EXAM: 10/09/2017 COMPARISON: 10/07/2017 INDICATION: Shortness of breath TECHNIQUE: Single frontal view of the chest is obtained. FINDINGS: The heart size is normal. The pulmonary vasculature is normal. Mild infiltrate is at the right base. Correlate for atelectasis. Findings may have slight improvement from comparison. Left lower lobe streak atelectasis is faintly visualized. IMPRESSION: 1. Bibasilar infiltrates similar improving on the right.
[2017-10-09 17:22] LABS: Glucose,Whole Blood 182 mg/dL (75-99)
[2017-10-09] MEDS: methylPREDNISolone SOD SUCCI 40 MG/ML 1 ML VIAL IV SCH ×2 (17:41→23:45)
[2017-10-09] MEDS: AZITHROMYCIN 500 MG TAB PO SCH (17:41)
[2017-10-09 20:56] LABS: Glucose,Whole Blood 263 mg/dL (75-99)
[2017-10-09] MEDS: ATORVASTATIN 20 MG TAB PO SCH (21:20)
[2017-10-09] MEDS: MONTELUKAST 10 MG TAB PO SCH (21:20)
[2017-10-09] MEDS: ALPRAZolam 0.25 MG TAB PO PRN (21:24)
[2017-10-09] MEDS: INSULIN DETEMIR 100 UNIT/ML 10 ML VIAL SQ SCH (21:25)
[2017-10-09] MEDS: cefTRIAXone IN SWFI 1,000 MG/10 ML SYRINGE IVP SCH (21:26)
[2017-10-10 06:58] LABS: Glucose,Whole Blood 123 mg/dL (75-99)
[2017-10-10] MEDS: INSULIN ASPART 100 UNIT/ML 1 ML 10 ML VIAL SQ SCH ×8 (07:06→21:13)
[2017-10-10] MEDS: IPRATROPIUM-ALBUTEROL 3 ML NEB INHALATION SCH ×4 (07:11→20:25)
[2017-10-10] MEDS: BUDESONIDE 0.5 MG/2 ML NEBU INHALATION SCH ×2 (07:11→20:25)
[2017-10-10] MEDS: HEPARIN SODIUM,PORCINE 5,000 UNIT/ML 1 ML VIAL SQ SCH ×2 (07:40→20:56)
[2017-10-10] MEDS: ASCORBIC ACID 500 MG TAB PO SCH (07:41)
[2017-10-10] MEDS: guaiFENesin 600 MG TABLET.ER PO SCH ×2 (07:41→20:56)
[2017-10-10] MEDS: CHOLECALCIFEROL 1,000 UNIT TAB PO SCH (07:41)
[2017-10-10] MEDS: ASPIRIN 81 MG PO SCH (07:41)
[2017-10-10] MEDS: methylPREDNISolone SOD SUCCI 40 MG/ML 1 ML VIAL IV SCH ×2 (07:41→15:24)
[2017-10-10] MEDS: FAMOTIDINE 20 MG TAB PO SCH (07:42)
[2017-10-10] MEDS: CARVEDILOL 12.5 MG TAB PO SCH ×2 (07:42→15:23)
[2017-10-10 08:29] LABS: Calcium 8.6 mg/dL (8.4-10.2)
[2017-10-10 08:46] LABS: Potassium 4.2 mmol/L (3.5-5.1)
--- NOTE | 2017-10-10 09:51 | P.PN ---
Subjective Progress Note Date: 10/10/17 HPI: Glenny Rodriguez is a 72-year-old female who presented to the ED at [facility] on 10/05/2017. At that time the patient had been having increasing shortness of breath for about 5 days' duration. She had been having some wheezing. She had an inhaler at home. She also had breathing treatments and does not remember the medication she uses. She continued to worsen. She denies any fevers or chills. She was subsequently seen in the ED and admitted for further evaluation and management. 10/07/2017- patient is being seen examined and evaluated today on rounds. Patient continues on high flow nasal cannula at 50 L an FiO2 of 65%. She did have a CT of the chest which did show bilateral petrolatum infiltrates with scarring and atelectasis as well as an old inflammatory disease. Dopplers of her bilateral lower extremities were negative for any DVTs. The patient is going for a VQ scan and echocardiogram this afternoon. Upon examination the patient states she feels her breathing is somewhat better today. She continues to have a cough which was productive at 1. with yellow sputum however she's having a hard time getting up sputum currently. We will send for a sputum culture. She is afebrile no further complaints. 10/08/17- patient is being seen examined and evaluated today on rounds. She continues on high flow nasal cannula. Flow rate of 50 L and her FiO2 has been weaned down to 55%. We will continue to wean down her oxygen demands as tolerated. Her chest x-ray was reviewed and does show COPD with possible mild CHF, with focal patchy bibasilar densities, right greater than left could represent areas of atelectasis or pneumonia. Also she went for an ultrasound of the abdomen yesterday and did show a stable 1.41.1 cm cyst in the left kidney. Nephrology is following. She is afebrile no further complaints 10/09/17- patient is being seen examined and evaluated today on rounds. She is resting up in bed on high flow nasal cannula 50 L an FiO2 of 55%. Repeat chest xray ordered. Oxygen to be weaned down to keep saturations above 88%. Continue with PT/OT. labs and reports reviewed, kindey function continue to improve, Will possibly order a CTA once kindey function normalizes. 10/10/17- patient is being seen examined and evaluated today on rounds. She is resting up in bed on high flow nasal cannula at 50 L with an FiO2 of 55%. Orders are to be weaned down to keep saturations above 88%. Spoke with RT and nursing about the weaning process. Currently we are weaning down her flow rate to 45 L and FiO2 48% we'll continue to wean tolerated. Chest x-ray was reviewed and does show bibasilar infiltrates similar, improving on the right. She is afebrile no further complaints. Objective - Vital Signs Vital signs: Vital Signs Temp 97.9 F 10/10/17 06:19 Pulse 60 10/10/17 07:31 Resp 18 10/10/17 06:19 BP 155/82 10/10/17 06:19 Pulse Ox 94 L 10/10/17 06:19 Intake & Output 10/09/17 10/10/17 10/10/17 18:59 06:59 18:59 Intake Total 240 240 Balance 240 240 Intake: Oral 240 240 Other: Voiding Method Bedside Commode Bedside Commode # Voids 2 1 2 # Bowel Movements 3 1 2 - Exam GENERAL EXAM: Alert, active, comfortable in no apparent distress. HEAD: Normocephalic. EYES: Normal reaction of pupils, equal size. NOSE: Clear with pink turbinates. THROAT: No erythema or exudates. NECK: No masses, no JVD. CHEST: No chest wall deformity. LUNGS: Decreased breath sounds with prolonged expiration and expiratory wheeze. CVS: S1 and S2 normal with no audible mumurs, regular rhythm. ABDOMEN: No hepatosplenomegaly, normal bowel sounds, no guarding or rigidity. EXTREMITIES: No edema noted, pedal pulses palpable. CENTRAL NERVOUS SYSTEM: No focal deficits, tone is normal in all 4 extremities. - Labs CBC & Chem 7: 10/08/17 09:50 10/10/17 07:40 Labs: Abnormal Lab Results - Last 24 Hours (Table) 10/07/17 10/09/17 10/09/17 Range/Units 07:18 11:30 17:11 BUN (7-17) mg/dL Creatinine (0.52-1.04) mg/dL Glucose (74-99) mg/dL POC Glucose (mg/dL) 240 H 182 H (75-99) mg/dL [id number]-8-[id number] 212 H (90 - 200) mg/dL 10/09/17 10/10/17 10/10/17 Range/Units 20:52 06:56 07:40 BUN 48 H (7-17) mg/dL Creatinine 1.30 H (0.52-1.04) mg/dL Glucose 107 H (74-99) mg/dL POC Glucose (mg/dL) 263 H 123 H (75-99) mg/dL Ipfpa-0-Vtxljkhgdac (90 - 200) mg/dL Assessment and Plan Assessment: Assessment Acute hypoxic respiratory failure requiring high flow nasal cannula Acute exacerbation of COPD Acute exacerbation of chronic persistent asthma, baseline severity unknown Acute on chronic renal failure Possible left-sided pneumonia Plan Medications have been reviewed and will be continued as ordered. Continue antibiotics and IV steroid taper Singulair and Mucinex Obtain sputum culture Possible CTA once kidney functions improve, depending on clinical presentation Continue with pulmonary hygiene, coughing and deep breathing exercises, and supportive care. Supplemental oxygen to maintain oxygen saturations of 88% or better. Wean down oxygen as tolerated Continue nebulizer treatments. Initiate and encourage incentive spirometer Alpha-1 antitrypsin, ALLERGY profile, IgE level reviewed CT of the chest reviewed, chest Xray reviewed Dopplers reviewed GI and DVT prophylaxis. We will continue to monitor labs/results and adjust treatment as necessary. Further recommendations pending. I performed an examination of the patient and discussed their management with the nurse practitioner. I have reviewed the nurse practitioner's note and agree with the documented findings and plan of care.
[2017-10-10 12:13] LABS: Glucose,Whole Blood 195 mg/dL (75-99)
--- NOTE | 2017-10-10 12:15 | P.PN ---
Subjective This is a 72-year-old female patient of Dr. Frazier with past history for COPD, diabetes mellitus type 2 insulin requiring, hypertension, hyperlipidemia, generalized osteoarthritis, generalized anxiety disorder. Patient gives history that she had cold symptoms about 11 days ago and since then has had shortness of breath and a cough with sputum production. She states she has trouble walking due to previous bowel surgery. She denies having any chest pain. She states she was on oxygen at home for years ago and this was taken off and she has been doing fine until this episode. She does not follow with the pulmonary medicine doctor. She quit smoking 1 year ago and was smoking 2 packs per day for 56 years. Patient came into [facility] emergency center for evaluation. Pulse ox was 88%, patient was afebrile, respirations 26-28 and normal heart rate. White count and hemoglobin were normal. BUN 56 and creatinine 3.2, blood sugar 129. Troponin was negative. ProBNP 670. Chest x-ray reveals increasing linear infiltrate and atelectasis in the left lung. Patient was given nebulizer treatments, started on ceftriaxone and azithromycin and IV Solu- Medrol. Patient was eventually on high flow oxygen and still pulse oxing only 87%. She is now on 50 L at and FiO2 of 62% and pulse oxing 98%. Patient has not tolerated switching to regular nasal cannula. ABGs showed a pH of 7.3, CO2 31, O2 70, bicarb 15, saturation 94%. Patient was unable to go for VQ scan at this time as she could not tolerate 15 L nasal cannula. We are ordering lower extremity Doppler. 10/07: Patient is still requiring FiO2 of 65%. Ultrasound of bilateral lower extremities was negative for DVT. A d-dimer ordered this morning came back at 4.24. We will attempt to get VQ scan done today. Patient is followed by pulmonary medicine. Renal function is much improved today with BUN 15 creatinine 1.9. Her blood glucoses running between 185 and 213. Cardiac echocardiogram has been completed and report is pending. Alpha-1 antitrypsin and IgG are pending along with the [facility] IgE panel. Sputum culture has been uncollected. 10/08: VQ scan is low probability for pulmonary embolus. Echocardiogram reveals EF of 50-55% with mild concentric left ventricular hypertrophy, LV moderately dilated 34-39, mild aortic valve sclerosis, mild aortic stenosis, moderate mitral regurgitation, mild tricuspid regurgitation, mild pulmonary hypertension. Patient remains on high flow at 55% which is down from yesterday. Patient is to be weaned down on her oxygen as tolerated. Repeat chest x-ray shows COPD with possible mild heart failure and focal patchy bibasilar densities, right greater than left could represent areas of atelectasis or pneumonia. Consult with nephrology as appreciated. Plan is to continue bicarbonate and discontinue saline. Switch to half-normal saline. Renal ultrasound showed a stable 1.5 x 1.1 cm cyst in the left kidney. We will add in PT and OT for rehab evaluation. 10/09: Patient is still on FiO2 of 55 and unable to tolerate any weaning. She states her lungs are feeling better today and she actually wants to go home today but patient cannot be discharged at this point. BUN [address] Tan would like to do a CTA of the chest once renal function improves. Solu-Medrol was decreased to 40 mg every 8 hours. 10/10: Patient noted to be sitting up in her bedside chair, states she is feeling well. Plans are to continue to wean down and keep oxygen saturations above 88%, currently she is able to be weaned from 50 L with an FiO2 of 55% to 40 L with an FiO2 of 48%, will continue to wean down as tolerated. Repeat chest x-ray shows bibasilar infiltrates improving on the right side. Objective - Vital Signs Vital signs: Vital Signs Temp 97.9 F 10/10/17 06:19 Pulse 64 10/10/17 11:29 Resp 18 10/10/17 06:19 BP 155/82 10/10/17 06:19 Pulse Ox 92 L 10/10/17 11:11 Intake & Output 10/09/17 10/10/17 10/10/17 18:59 06:59 18:59 Intake Total 240 240 Balance 240 240 Intake: Oral 240 240 Other: Voiding Method Bedside Commode Bedside Commode # Voids 2 1 2 # Bowel Movements 3 1 2 - Constitutional General appearance: Present: cooperative, no acute distress - EENT Eyes: Present: PERRLA ENT: Present: hearing grossly normal - Neck Neck: Present: normal ROM. Absent: lymphadenopathy, rigidity, thyromegaly - Respiratory Respiratory: bilateral: diminished, negative: wheezing, prolonged expiration - Cardiovascular Rhythm: regular Heart sounds: normal: S1, S2 - Gastrointestinal General gastrointestinal: Present: normal bowel sounds, soft. Absent: distended , organomegaly, tenderness - Neurologic Neurologic: Present: CNII-XII intact. Absent: focal deficits - Musculoskeletal Musculoskeletal: Present: generalized weakness, strength equal bilaterally - Psychiatric Psychiatric: Present: A&O x's 3 - Labs CBC & Chem 7: 10/08/17 09:50 10/10/17 07:40 Labs: Abnormal Lab Results - Last 24 Hours (Table) 10/09/17 10/09/17 10/10/17 Range/Units 17:11 20:52 06:56 BUN (7-17) mg/dL Creatinine (0.52-1.04) mg/dL Glucose (74-99) mg/dL POC Glucose (mg/dL) 182 H 263 H 123 H (75-99) mg/dL 10/10/17 Range/Units 07:40 BUN 48 H (7-17) mg/dL Creatinine 1.30 H (0.52-1.04) mg/dL Glucose 107 H (74-99) mg/dL POC Glucose (mg/dL) (75-99) mg/dL Assessment and Plan Plan: 1. Acute COPD exacerbation with possible left sided pneumonia, probable gram- negative pneumonia. Consult with Dr. Pete guerrero. Continue DuoNeb treatments 4 times daily, and azithromycin, ceftriaxone, Solu-Medrol 40 mg IV every 8 hours, Pulmicort 0.5 mg twice daily, Mucinex. 2. Acute hypoxic respiratory failure. Patient is currently on oxygen by nasal cannula at 45 L with FiO2 of 48%. Patient is unable to undergo CTA of the chest to rule out PE due to renal failure and VQ scan due to oxygen needs. Elevated d-dimer. VQ scan low probability for PE. Patient most likely will require home oxygen. 3. Acute kidney injury. Fenofibrate and losartan discontinued. Consult with nephrology. Continue IV fluids at 100 mL per hour. 4. Diabetes mellitus type 2, insulin requiring. Continue Levemir 23 units at bedtime, 7 units with meals and at bedtime and scale. 5. Hypertension. Continue Coreg 25 mg twice daily. 6. Hyperlipidemia. Continue Lipitor 20 g at bedtime. 7. Generalized anxiety disorder. Continue Xanax or 0.25 mg every 8 hours as needed. 8. History of bowel resection, stable next field DVT prophylaxis. Lovenox. 9. Gastrointestinal prophylaxis. Pepcid. Discharge plan: Home with [facility]. PT and OT to evaluate for rehab. The above impression and plan of care have been discussed and directed by signing physician. Chelsey Dao nurse practitioner acting as scribe for signing physician.
--- NOTE | 2017-10-10 14:37 | PN ---
PROGRESS NOTE The patient is seen for followup for acute kidney injury. His serum creatinine has settled as 1.4-1.3 mg/dL. PHYSICAL EXAMINATION: Blood pressure is 155/82, heart rate 64 per minute. Patient is afebrile. Examination of the heart: S1, S2. Examination lungs: Bilateral breath sounds are heard. Abdomen is soft, nontender. Examination lower extremity shows trace edema. PORT ENGINEER exam is grossly intact. LABS: Sodium 144, potassium 4.2, BUN 48, serum creatinine 1.3, calcium 8.6. ASSESSMENT: 1. Acute kidney injury, prerenal, currently significantly improved, nonoliguric. Etiology was mainly prerenal. Patient received IV fluids on initial admission. Her angiotensin receptor blockers are on hold as blood pressure was staying on the lower side currently a bit high now. We can resume low-dose losartan. 2. Chronic kidney disease. UA shows trace protein. Etiology is likely nephrosclerosis. So far, the creatinine has been at 1.3, which is the lowest we do not have any previous labs for comparison. Most likely, patient is at stage III. She will need outpatient followup. 3. Severe chronic obstructive pulmonary disease with exacerbation, currently somewhat improved as oxygen requirement has decreased. 4. Hypertension, maintained on Coreg. Blood pressure is slightly on the high side. We can add low-dose losartan. The patient is also on steroids which will worsen the control of the hypertension. The patient was on 50 mg of losartan. We can at 25 mg and monitor the renal function. PLAN: Is to add 25 mg of losartan and repeat labs in a.m. Patient will need followup as outpatient for CKD. MMODL / IJN: [id number] /
[2017-10-10] MEDS: LOSARTAN 25 MG TAB PO SCH (15:23)
[2017-10-10] MEDS: AZITHROMYCIN 500 MG TAB PO SCH (15:23)
[2017-10-10 17:22] LABS: Glucose,Whole Blood 237 mg/dL (75-99)
[2017-10-10] MEDS: ATORVASTATIN 20 MG TAB PO SCH (20:55)
[2017-10-10] MEDS: MONTELUKAST 10 MG TAB PO SCH (20:56)
[2017-10-10 20:59] LABS: Glucose,Whole Blood 222 mg/dL (75-99)
[2017-10-10] MEDS: INSULIN DETEMIR 100 UNIT/ML 10 ML VIAL SQ SCH (21:12)
[2017-10-10] MEDS: cefTRIAXone IN SWFI 1,000 MG/10 ML SYRINGE IVP SCH (21:12)
[2017-10-10] MEDS: ALPRAZolam 0.25 MG TAB PO PRN (21:14)
[2017-10-10 22:53] VITALS: RESP 18; TEMP 97.1
[2017-10-11] MEDS: methylPREDNISolone SOD SUCCI 40 MG/ML 1 ML VIAL IV SCH ×2 (00:15→07:27)
[2017-10-11 06:01] VITALS: BP 180/84
[2017-10-11] MEDS: BUDESONIDE 0.5 MG/2 ML NEBU INHALATION SCH (07:05)
[2017-10-11] MEDS: IPRATROPIUM-ALBUTEROL 3 ML NEB INHALATION SCH ×2 (07:05→10:54)
[2017-10-11 07:06] LABS: Glucose,Whole Blood 126 mg/dL (75-99)
[2017-10-11] MEDS: guaiFENesin 600 MG TABLET.ER PO SCH (07:26)
[2017-10-11] MEDS: CHOLECALCIFEROL 1,000 UNIT TAB PO SCH (07:26)
[2017-10-11] MEDS: FAMOTIDINE 20 MG TAB PO SCH (07:27)
[2017-10-11] MEDS: ASCORBIC ACID 500 MG TAB PO SCH (07:27)
[2017-10-11] MEDS: HEPARIN SODIUM,PORCINE 5,000 UNIT/ML 1 ML VIAL SQ SCH (07:27)
[2017-10-11] MEDS: ASPIRIN 81 MG PO SCH (07:27)
[2017-10-11] MEDS: CARVEDILOL 12.5 MG TAB PO SCH (07:27)
[2017-10-11] MEDS: LOSARTAN 25 MG TAB PO SCH (07:27)
[2017-10-11] MEDS: INSULIN ASPART 100 UNIT/ML 1 ML 10 ML VIAL SQ SCH ×4 (07:27→12:11)
[2017-10-11 09:12] LABS: Basophils % (A) 0 %; Eosinophils % (A) 0 %; HGB 11.8 gm/dL (11.4-16.0); Lymphocytes # (A) 0.7 k/uL (1.0-4.8); Lymphocytes % (A) 7 %; MCH 30.7 pg (25.0-35.0); MCHC 32.8 g/dL (31.0-37.0); MCV 93.7 fL (80.0-100.0); Mean Platelet Volume 7.6; Monocytes # (A) 0.3 k/uL (0-1.0); Monocytes % (A) 4 %; Neutrophils # (A) 8.4 k/uL (1.3-7.7); Neutrophils % (A) 88 %; Platelet Count 231 k/uL (150-450); RBC 3.84 m/uL (3.80-5.40); RDW 13.5 % (11.5-15.5); WBC 9.5 k/uL (3.8-10.6)
[2017-10-11] MEDS ORDERED: predniSONE 20 MG TAB PO SCH (09:30)
[2017-10-11 09:35] LABS: Albumin 3.5 g/dL (3.5-5.0); Calcium 8.9 mg/dL (8.4-10.2); Total Bilirubin 0.6 mg/dL (0.2-1.3); Total Protein 6.5 g/dL (6.3-8.2)
--- NOTE | 2017-10-11 10:05 | P.PN ---
Subjective Progress Note Date: 10/11/17 HPI: Glenny Rodriguez is a 72-year-old female who presented to the ED at [facility] on 10/05/2017. At that time the patient had been having increasing shortness of breath for about 5 days' duration. She had been having some wheezing. She had an inhaler at home. She also had breathing treatments and does not remember the medication she uses. She continued to worsen. She denies any fevers or chills. She was subsequently seen in the ED and admitted for further evaluation and management. 10/07/2017- patient is being seen examined and evaluated today on rounds. Patient continues on high flow nasal cannula at 50 L an FiO2 of 65%. She did have a CT of the chest which did show bilateral petrolatum infiltrates with scarring and atelectasis as well as an old inflammatory disease. Dopplers of her bilateral lower extremities were negative for any DVTs. The patient is going for a VQ scan and echocardiogram this afternoon. Upon examination the patient states she feels her breathing is somewhat better today. She continues to have a cough which was productive at 1. with yellow sputum however she's having a hard time getting up sputum currently. We will send for a sputum culture. She is afebrile no further complaints. 10/08/17- patient is being seen examined and evaluated today on rounds. She continues on high flow nasal cannula. Flow rate of 50 L and her FiO2 has been weaned down to 55%. We will continue to wean down her oxygen demands as tolerated. Her chest x-ray was reviewed and does show COPD with possible mild CHF, with focal patchy bibasilar densities, right greater than left could represent areas of atelectasis or pneumonia. Also she went for an ultrasound of the abdomen yesterday and did show a stable 1.41.1 cm cyst in the left kidney. Nephrology is following. She is afebrile no further complaints 10/09/17- patient is being seen examined and evaluated today on rounds. She is resting up in bed on high flow nasal cannula 50 L an FiO2 of 55%. Repeat chest xray ordered. Oxygen to be weaned down to keep saturations above 88%. Continue with PT/OT. labs and reports reviewed, kindey function continue to improve, Will possibly order a CTA once kindey function normalizes. 10/10/17- patient is being seen examined and evaluated today on rounds. She is resting up in bed on high flow nasal cannula at 50 L with an FiO2 of 55%. Orders are to be weaned down to keep saturations above 88%. Spoke with RT and nursing about the weaning process. Currently we are weaning down her flow rate to 45 L and FiO2 48% we'll continue to wean tolerated. Chest x-ray was reviewed and does show bibasilar infiltrates similar, improving on the right. She is afebrile no further complaints. 10/11/17- patient is being seen examined and evaluated today on rounds. She is resting up on 5 L supplemental oxygen. Her oxygen saturations are approximately 95%. She states her breathing is much improved today. Patient is requesting to go home. Steroids have been switched to oral. She is afebrile no further complaints Objective - Vital Signs Vital signs: Vital Signs Temp 97.1 F L 10/11/17 06:00 Pulse 56 L 10/11/17 07:25 Resp 18 10/11/17 06:00 BP 180/84 10/11/17 06:00 Pulse Ox 95 10/11/17 07:06 Intake & Output 10/10/17 10/11/17 10/11/17 18:59 06:59 18:59 Intake Total 200 Balance 200 Intake: Oral 200 Other: Voiding Method Bedside Commode Bedside Commode # Voids 2 1 # Bowel Movements 2 1 - Exam GENERAL EXAM: Alert, active, comfortable in no apparent distress. HEAD: Normocephalic. EYES: Normal reaction of pupils, equal size. NOSE: Clear with pink turbinates. THROAT: No erythema or exudates. NECK: No masses, no JVD. CHEST: No chest wall deformity. LUNGS: Decreased breath sounds with prolonged expiration and expiratory wheeze. CVS: S1 and S2 normal with no audible mumurs, regular rhythm. ABDOMEN: No hepatosplenomegaly, normal bowel sounds, no guarding or rigidity. EXTREMITIES: No edema noted, pedal pulses palpable. CENTRAL NERVOUS SYSTEM: No focal deficits, tone is normal in all 4 extremities. - Labs CBC & Chem 7: 10/11/17 07:52 10/11/17 07:52 Labs: Abnormal Lab Results - Last 24 Hours (Table) 10/10/17 10/10/17 10/10/17 Range/Units 12:09 17:08 20:53 Neutrophils # (1.3-7.7) k/uL Lymphocytes # (1.0-4.8) k/uL BUN (7-17) mg/dL Creatinine (0.52-1.04) mg/dL Glucose (74-99) mg/dL POC Glucose (mg/dL) 195 H 237 H 222 H (75-99) mg/dL 10/11/17 10/11/17 10/11/17 Range/Units 07:04 07:52 07:52 Neutrophils # 8.4 H (1.3-7.7) k/uL Lymphocytes # 0.7 L (1.0-4.8) k/uL BUN 51 H (7-17) mg/dL Creatinine 1.40 H (0.52-1.04) mg/dL Glucose 112 H (74-99) mg/dL POC Glucose (mg/dL) 126 H (75-99) mg/dL Assessment and Plan Assessment: Assessment Acute hypoxic respiratory failure requiring high flow nasal cannula Acute exacerbation of COPD Acute exacerbation of chronic persistent asthma, baseline severity unknown Acute on chronic renal failure Possible left-sided pneumonia Plan Patient cleared for discharge from pulmonary standpoint will need home oxygen assessment Medications have been reviewed and will be continued as ordered. Continue antibiotics and IV steroid taper Singulair and Mucinex Obtain sputum culture Possible CTA once kidney functions improve, depending on clinical presentation Continue with pulmonary hygiene, coughing and deep breathing exercises, and supportive care. Supplemental oxygen to maintain oxygen saturations of 88% or better. Wean down oxygen as tolerated Continue nebulizer treatments. Initiate and encourage incentive spirometer Alpha-1 antitrypsin, ALLERGY profile, IgE level reviewed CT of the chest reviewed, chest Xray reviewed Dopplers reviewed GI and DVT prophylaxis. We will continue to monitor labs/results and adjust treatment as necessary. Further recommendations pending. I performed an examination of the patient and discussed their management with the nurse practitioner. I have reviewed the nurse practitioner's note and agree with the documented findings and plan of care.
--- NOTE | 2017-10-11 10:29 | PN ---
PROGRESS NOTE The patient is seen for followup for acute kidney injury. Her renal function has improved. Serum creatinine was down to 1.3 and 1.4 mg/dL. The patient is currently off of IV fluids. She will be most likely discharged today. Her oxygen requirement is significantly decreased to about 6 L nasal cannula now. PHYSICAL EXAMINATION: On examination, blood pressure is 180/84, heart rate 52 per minute. Patient is afebrile. She is euvolemic with no evidence of edema in lower extremities. Abdomen is soft, nontender. LAB: Labs show sodium 143, potassium 4.0, BUN 51, serum creatinine 1.4, hemoglobin 11.8 g/dL. ASSESSMENT: 1. Acute kidney injury, prerenal, currently improved. 2. Chronic kidney disease, NKF stage III, with baseline creatinine of 1.3 to 1.4 mg/dL, mostly secondary to nephrosclerosis. The patient will need outpatient followup. 3. Severe chronic obstructive pulmonary disease with exacerbation, now improved with decreased requirements in oxygen. 4. Hypertension. The angiotensin receptor blockers have been restarted and we can continue with the losartan for now since the blood pressure remains elevated. We may need to add a calcium channel [place]. The blood pressure should definitely improve once the prednisone has been tapered. MMODL / IJN: [id number] /
[2017-10-11 11:26] LABS: Glucose,Whole Blood 332 mg/dL (75-99)
[2017-10-11 11:46] VITALS: PULSE 60
--- NOTE | 2017-10-11 12:00 | P.DS ---
Providers Date of admission: 10/05/17 19:57 Attending physician: Pastora Frazier Consults: 10/05/17 23:11 Consult Physician Routine Consulting Provider: Ortiz Freeman Consult Reason/Comments: sob/copd exacerbation Do you want consulting provider notified?: Yes 10/06/17 10:54 Consult Physician Routine Consulting Provider: Filippo Osorio Consult Reason/Comments: EDILIA Do you want consulting provider notified?: Yes Primary care physician: Pastora Frazier [facility] Course: This is a 72-year-old female patient of Dr. Frazier with past history for COPD, diabetes mellitus type 2 insulin requiring, hypertension, hyperlipidemia, generalized osteoarthritis, generalized anxiety disorder. Patient gives history that she had cold symptoms about 11 days ago and since then has had shortness of breath and a cough with sputum production. She states she has trouble walking due to previous bowel surgery. She denies having any chest pain. She states she was on oxygen at home for years ago and this was taken off and she has been doing fine until this episode. She does not follow with the pulmonary medicine doctor. She quit smoking 1 year ago and was smoking 2 packs per day for 56 years. Patient came into [facility] emergency center for evaluation. Pulse ox was 88%, patient was afebrile, respirations 26-28 and normal heart rate. White count and hemoglobin were normal. BUN 56 and creatinine 3.2, blood sugar 129. Troponin was negative. ProBNP 670. Chest x-ray reveals increasing linear infiltrate and atelectasis in the left lung. Patient was given nebulizer treatments, started on ceftriaxone and azithromycin and IV Solu- Medrol. Patient was eventually on high flow oxygen and still pulse oxing only 87%. She is now on 50 L at and FiO2 of 62% and pulse oxing 98%. Patient has not tolerated switching to regular nasal cannula. ABGs showed a pH of 7.3, CO2 31, O2 70, bicarb 15, saturation 94%. Patient was unable to go for VQ scan at this time as she could not tolerate 15 L nasal cannula. We are ordering lower extremity Doppler. 10/07: Patient is still requiring FiO2 of 65%. Ultrasound of bilateral lower extremities was negative for DVT. A d-dimer ordered this morning came back at 4.24. We will attempt to get VQ scan done today. Patient is followed by pulmonary medicine. Renal function is much improved today with BUN 15 creatinine 1.9. Her blood glucoses running between 185 and 213. Cardiac echocardiogram has been completed and report is pending. Alpha-1 antitrypsin and IgG are pending along with the [facility] IgE panel. Sputum culture has been uncollected. 10/08: VQ scan is low probability for pulmonary embolus. Echocardiogram reveals EF of 50-55% with mild concentric left ventricular hypertrophy, LV moderately dilated 34-39, mild aortic valve sclerosis, mild aortic stenosis, moderate mitral regurgitation, mild tricuspid regurgitation, mild pulmonary hypertension. Patient remains on high flow at 55% which is down from yesterday. Patient is to be weaned down on her oxygen as tolerated. Repeat chest x-ray shows COPD with possible mild heart failure and focal patchy bibasilar densities, right greater than left could represent areas of atelectasis or pneumonia. Consult with nephrology as appreciated. Plan is to continue bicarbonate and discontinue saline. Switch to half-normal saline. Renal ultrasound showed a stable 1.5 x 1.1 cm cyst in the left kidney. We will add in PT and OT for rehab evaluation. 10/09: Patient is still on FiO2 of 55 and unable to tolerate any weaning. She states her lungs are feeling better today and she actually wants to go home today but patient cannot be discharged at this point. BUN [address] Tan would like to do a CTA of the chest once renal function improves. Solu-Medrol was decreased to 40 mg every 8 hours. 10/10: Patient noted to be sitting up in her bedside chair, states she is feeling well. Plans are to continue to wean down and keep oxygen saturations above 88%, currently she is able to be weaned from 50 L with an FiO2 of 55% to 40 L with an FiO2 of 48%, will continue to wean down as tolerated. Repeat chest x-ray shows bibasilar infiltrates improving on the right side. 10/11: Patient pulse ox is much better on 5 L O2, she is not on any high flow oxygen anymore no requirement for BiPAP. Arrangement for home O2 and updraft treatment patient will have home care. Assessment and Plan Plan: 1. Acute COPD exacerbation with possible left sided pneumonia, probable gram- negative pneumonia. Consult with Dr. Freeman appreciated. Continue DuoNeb treatments 4 times daily, and azithromycin, ceftriaxone, Solu-Medrol 40 mg IV every 8 hours, Pulmicort 0.5 mg twice daily, Mucinex. 2. Acute hypoxic respiratory failure. Patient is currently on oxygen by nasal cannula at 45 L with FiO2 of 48%. Patient is unable to undergo CTA of the chest to rule out PE due to renal failure and VQ scan due to oxygen needs. Elevated d-dimer. VQ scan low probability for PE. Patient most likely will require home oxygen. 3. Acute kidney injury. Fenofibrate and losartan discontinued. Consult with nephrology. Continue IV fluids at 100 mL per hour. 4. Diabetes mellitus type 2, insulin requiring. Continue Levemir 23 units at bedtime, 7 units with meals and at bedtime and scale. 5. Hypertension. Continue Coreg 25 mg twice daily. 6. Hyperlipidemia. Continue Lipitor 20 g at bedtime. 7. Generalized anxiety disorder. Continue Xanax or 0.25 mg every 8 hours as needed. 8. History of bowel resection, stable next field DVT prophylaxis. Lovenox. 9. Gastrointestinal prophylaxis. Pepcid. Arrangement for O2 was made by [facility], also will be getting a new nebulizer machine. The rest of her medication were sent to her pharmacy and patient will be back to see her PCP in the next 3-5 days also will follow with her pulmonary within 1 week. Patient Condition at Discharge: Fair Plan - Discharge Summary Discharge Rx Participant: Yes New Discharge Prescriptions: New Azithromycin [Zithromax] 500 mg PO DAILY #7 tab Budesonide [Pulmicort] 0.5 mg INHALATION RT-BID #60 nebu Famotidine [Pepcid] 20 mg PO DAILY #30 tab guaiFENesin [Mucinex] 1,200 mg PO Q12HR #30 tablet.er Ipratropium-Albuterol Nebulize [Duoneb 0.5 mg-3 mg/3 ml Soln] 3 ml INHALATION RT-QID #120 ampul.neb Montelukast [Singulair] 10 mg PO HS #30 tab predniSONE 20 mg PO DAILY #40 tab Continue ALPRAZolam [Xanax] 0.25 mg PO Q8HR PRN PRN Reason: Anxiety Insulin Detemir [Levemir] 23 unit SQ HS Atorvastatin Calcium [Lipitor] 20 mg PO HS Aspirin 81 mg PO DAILY INSULIN LISPRO (humaLOG) [humaLOG] 7 units SQ AC-TID Ascorbic Acid [Vitamin C] 500 mg PO MOWEFR Fenofibrate [Lofibra] 54 mg PO DAILY Ubidecarenone [Co Q-10] 200 mg PO BID Jasper-3 Fatty Acids/Fish Oil [Fish Oil 1,000 mg Softgel] 1 cap PO DAILY Losartan Potassium 50 mg PO DAILY Fluticasone/Vilanterol [Breo Ellipta 200-25 Mcg INH] 1 inhalation INHALATION DAILY Carvedilol 25 mg PO BID Cholecalciferol (Vitamin D3) [Vitamin D3] 2,000 unit PO DAILY Discharge Medication List ALPRAZolam [Xanax] 0.25 mg PO Q8HR PRN 10/05/17 [History] Ascorbic Acid [Vitamin C] 500 mg PO MOWEFR 10/05/17 [History] Aspirin 81 mg PO DAILY 10/05/17 [History] Atorvastatin Calcium [Lipitor] 20 mg PO HS 10/05/17 [History] Carvedilol 25 mg PO BID 10/05/17 [History] Cholecalciferol (Vitamin D3) [Vitamin D3] 2,000 unit PO DAILY 10/05/17 [History] Fenofibrate [Lofibra] 54 mg PO DAILY 10/05/17 [History] Fluticasone/Vilanterol [Breo Ellipta 200-25 Mcg INH] 1 inhalation INHALATION DAILY 10/05/17 [History] INSULIN LISPRO (humaLOG) [humaLOG] 7 units SQ AC-TID 10/05/17 [History] Insulin Detemir [Levemir] 23 unit SQ HS 10/05/17 [History] Losartan Potassium 50 mg PO DAILY 10/05/17 [History] Jasper-3 Fatty Acids/Fish Oil [Fish Oil 1,000 mg Softgel] 1 cap PO DAILY [History] Ubidecarenone [Co Q-10] 200 mg PO BID 10/05/17 [History] Azithromycin [Zithromax] 500 mg PO DAILY #7 tab 10/11/17 [Rx] Budesonide [Pulmicort] 0.5 mg INHALATION RT-BID #60 nebu 10/11/17 [Rx] Famotidine [Pepcid] 20 mg PO DAILY #30 tab 10/11/17 [Rx] Ipratropium-Albuterol Nebulize [Duoneb 0.5 mg-3 mg/3 ml Soln] 3 ml INHALATION RT -QID #120 ampul.neb 10/11/17 [Rx] Montelukast [Singulair] 10 mg PO HS #30 tab 10/11/17 [Rx] guaiFENesin [Mucinex] 1,200 mg PO Q12HR #30 tablet.er 10/11/17 [Rx] predniSONE 20 mg PO DAILY #40 tab 10/11/17 [Rx] Follow up Appointment(s)/Referral(s): Pastora Frazier MD [Primary Care Provider] - 10/14/17 3:30 pm Mirian Tan DO [Doctor of Osteopathic Medicine] - 10/15/17 9:45 am [facility], [NON-STAFF] - Patient Instructions/Handouts: Using Oxygen at Home (DC), COPD (Chronic Obstructive Pulmonary Disease) (DC) Activity/Diet/Wound Care/Special Instructions: Cardiac, diabetic diet. Oxygen via nasal cannula at 5 Liters. [facility] delivered tank at bedside and educated. Limited activity until follow up. Fall precautions, up with assist. Discharge Disposition: HOME WITH HOME HEALTH SERVICES
[2017-10-11 14:13] VITALS: BMI 26.0
== END 2017-10-11 14:20 | disposition home health service (06) | DRG 177 ==
LOC: EC 18:12 → 4MS4W 19:57
PROVIDERS: ADMIT Internal Medicine; ATTEND Internal Medicine
DX: J15.6 Pneumonia due to other Gram-negative bacteria (principal); J96.01 Acute respiratory failure with hypoxia; J44.0 Chronic obstructive pulmonary disease with (acute) lower respiratory infection; N17.9 Acute kidney failure, unspecified; J45.901 Unspecified asthma with (acute) exacerbation; E87.2 Acidosis; J44.1 Chronic obstructive pulmonary disease with (acute) exacerbation; E78.5 Hyperlipidemia, unspecified; F41.1 Generalized anxiety disorder; E11.22 Type 2 diabetes mellitus with diabetic chronic kidney disease; I12.9 Hypertensive chronic kidney disease with stage 1 through stage 4 chronic kidney disease, or unspecified chronic kidney disease; N18.3 Chronic kidney disease, stage 3 (moderate); M15.9 Polyosteoarthritis, unspecified; N28.1 Cyst of kidney, acquired; R79.1 Abnormal coagulation profile; Z87.891 Personal history of nicotine dependence; Z90.49 Acquired absence of other specified parts of digestive tract; Z79.4 Long term (current) use of insulin; Z79.82 Long term (current) use of aspirin; Z80.1 Family history of malignant neoplasm of trachea, bronchus and lung; Z90.710 Acquired absence of both cervix and uterus
CPT/HCPCS: 36415; 36600; 71045; 71046; 71250; 76770; 78582; 80048; 80053; 81001; 82103; 82104; 82550; 82553; 82785; 82805; 83036; 83735; 83880; 84484; 85025; 85027; 85379; 85610; 85730; 86003; 93005; 93306; 93970; 94640; 94644; 94645; 94760; 96365; 96366; 96375; 99291

== ENCOUNTER → 2017-11-04 | Outpatient (CLI) | payer MEDICARE ==
--- NOTE | 2017-11-04 14:00 | XR ---
EXAMINATION TYPE: XR chest 2V DATE OF EXAM: 11/04/2017 COMPARISON: 10/09/2014 HISTORY: 72-year-old female with cough, rule out pneumonia TECHNIQUE: Frontal and lateral views FINDINGS: Heart borderline enlarged. Atherosclerotic arch calcifications. Hyperinflation. Bands of atelectasis or scarring mid and lower lungs. Mild hyperinflation. No consolidation or pleural effusion seen. IMPRESSION: COPD with bands of atelectasis or scarring in the mid and lower lungs. No acute process otherwise see n.
== END | disposition home or self-care (01) ==
LOC: RADXRMAIN 10:51
PROVIDERS: ATTEND Internal Medicine
DX: J44.9 Chronic obstructive pulmonary disease, unspecified (principal)
CPT/HCPCS: 71046

== ENCOUNTER → 2018-07-21 | Outpatient (CLI) | payer MEDICARE ==
[~2018-07-21] MED LIST: REGADENOSON 0.4 MG/5 ML SYRINGE IV ONE
--- NOTE | 2018-07-21 10:23 | P.STRESS ---
- Stress Test Note Stress Test Results/Findings: Exam Performed: NM stress lexiscan cardiolite Exam Date: 07/21/18 Reason for Exam: PRE OP CLEARANCE Height: 5 ft 6 in Weight: 64.41 kg Protocol: LEXISCAN Stage: N/A Duration of Exercise: 7 MINUTES Resting Heart Rate: 61 Resting Blood Pressure: 143/71 Maximum Achieved Heart Rate: 84 Maximum Achieved Blood Pressure: 151/62 85% PMHR: N/A 100% PMHR: N/A METS: N/A Technologist Comment: Stress Test Results/Findings: This is a 73-year-old female with history of hypertension, diabetes, family his tory and smoking history, being evaluated for cardiac status prior to upcoming knee surgery. Stress data: Baseline EKG showed sinus rhythm with normal MS interval and QRS duration. A standard dose of Persantine was infused. EKGs taken during and after the infusion did not reveal any significant changes from the baseline. Patient tolerated the procedure well except that she became more short of breath. Final impression: #1. Negative Persantine stress test #2. Report on the nuclear images to be given by the radiologist
--- NOTE | 2018-07-21 10:57 | NM ---
EXAMINATION TYPE: NM stress lexiscan cardiolite DATE OF EXAM: 07/21/2018 COMPARISON: Prior nuclear medicine study January 09, [address] chest October 06, 2017. HISTORY: Preprocedure study. History of COPD and tobacco use quit 6 months ago with family history of heart disease and personal history of hypertension and diabetes with episodes of difficulty in breat josemanuel per patient. TECHNIQUE: After the intravenous administration of 9.1 mCi Tc 99m Sestamibi - Cardiolite resting SPE CT images acquired 45 minutes post injection. The patient received 0.4mg Lexiscan, 25.6 mCi Tc 99m Sestamibi - Stress images obtained [address] injection FINDINGS: Review of stress and rest SPECT images demonstrates no new suspicious distinct perfusion abnormality. Gated analysis shows normal wall motion with an estimated left ventricular ejection fraction of 68 %. IMPRESSION: No scintigraphic evidence for reversible ischemia.
--- NOTE | 2018-07-22 13:10 | EST ---
Addendum entered and electronically signed by Angelita Carolina MD 07/21/18 10:27: This is Dr. Condon dictating an addendum to the stress test. This patient had Lexiscan stress. Original Note: - Stress Test Note Stress Test Results/Findings: Exam Performed: NM stress lexiscan cardiolite Exam Date: 07/21/18 Reason for Exam: PRE OP CLEARANCE Height: 5 ft 6 in Weight: 64.41 kg Protocol: LEXISCAN Stage: N/A Duration of Exercise: 7 MINUTES Resting Heart Rate: 61 Resting Blood Pressure: 143/71 Maximum Achieved Heart Rate: 84 Maximum Achieved Blood Pressure: 151/62 85% PMHR: N/A 100% PMHR: N/A METS: N/A Technologist Comment: Stress Test Results/Findings: This is a 73-year-old female with history of hypertension, diabetes, family history and smoking history, being evaluated for cardiac status prior to upcoming knee surgery. Stress data: Baseline EKG showed sinus rhythm with normal MD interval and QRS duration. A standard dose of lexiscan was infused. EKGs taken during and after the infusion did not reveal any significant changes from the baseline. Patient tolerated the procedure well except that she became more short of breath. Final impression: #1. Negative lexiscan stress test #2. Report on the nuclear images to be given by the radiologist FE
== END | disposition home or self-care (01) ==
LOC: RADNMMAIN 07:30
PROVIDERS: ATTEND Internal Medicine
DX: Z01.818 Encounter for other preprocedural examination (principal)
CPT/HCPCS: 93017; 78452; A9500; J2785

== ENCOUNTER → 2018-07-23 | Outpatient (CLI) | payer MEDICARE ==
[2018-07-23 10:43] LABS: Anisocytosis Slight; HCT 38.1 % (34.0-46.0); HGB 12.1 gm/dL (11.4-16.0); MCH 27.6 pg (25.0-35.0); MCHC 31.7 g/dL (31.0-37.0); MCV 87.1 fL (80.0-100.0); Mean Platelet Volume 7.6; Platelet Count 264 k/uL (150-450); RBC 4.38 m/uL (3.80-5.40); RDW 16.3 % (11.5-15.5); WBC 5.5 k/uL (3.8-10.6)
[2018-07-23 10:51] LABS: Prothrombin Time 10.3 sec (9.0-12.0)
[2018-07-23 11:07] LABS: Amorphous Sediment,Urine Rare /hpf; Appearance,Urine Cloudy (Clear); Bacteria,Urine Moderate /hpf; Bilirubin,Urine Negative (Negative); Blood,Urine Negative (Negative); Color,Urine Yellow; Glucose,Urine (UA) Negative (Negative); Ketones,Urine Negative (Negative); Leukocyte Esterase,Urine Large (Negative); Mucus,Urine Rare /hpf; Nitrite,Urine Positive (Negative); PH, Urine 5.5 (5.0-8.0); Protein,Urine Trace (Negative); Specific Gravity,Urine 1.019 (1.001-1.035); Squamous Epithelial Cell,Urine 2 /hpf (0-4); Urobilinogen,Urine <2.0 mg/dL (<2.0); WBC,Urine 161 /hpf (0-5)
[2018-07-23 11:16] LABS: Albumin 3.7 g/dL (3.5-5.0); Calcium 9.8 mg/dL (8.4-10.2); Potassium 4.8 mmol/L (3.5-5.1); Total Bilirubin 0.5 mg/dL (0.2-1.3); Total Protein 6.8 g/dL (6.3-8.2)
== END ==
LOC: LABPAT 09:11
PROVIDERS: ATTEND Orthopaedic Surgery
DX: Z01.812 Encounter for preprocedural laboratory examination (principal); Z79.01 Long term (current) use of anticoagulants
CPT/HCPCS: 80053; 81001; 85027; 85610; 85730; 87070

== ENCOUNTER → 2018-07-23 | Outpatient (CLI) | payer MEDICARE | END | disposition home or self-care (01) | LOC: LABWHC1 09:14 | PROVIDERS: ATTEND Internal Medicine | DX: Z53.9 Procedure and treatment not carried out, unspecified reason (principal) ==

== ENCOUNTER 2018-08-05 09:20 | Inpatient (IN) | payer MEDICARE ==
[2018-07-24 15:15] VITALS: BMI 24.1
[~2018-08-05 09:20] MED LIST changes: +ACETAMINOPHEN TAB 500 MG TAB PO ONE; +DEXAMETHASONE SOD PHOSPHATE 10 MG/ML 1 ML VIAL IV ONE; +HYDROmorphone 0.5 MG/0.5 ML SYRINGE IVP PRN; +MELOXICAM 7.5 MG TAB PO ONE; +MORPHINE SULFATE 2 MG/ML SYRINGE IV PRN; +ONDANSETRON 4 MG/2 ML VIAL IVP ONE; -REGADENOSON 0.4 MG/5 ML SYRINGE IV ONE; +ROPIVACAINE 246.25 MG, EPINEPHrine 0.5 MG, KETOROLAC 30 MG, cloNIDine HCL/PF 80 MCG, WA... MISCELLANE ONE; +TRANEXAMIC ACID 1,000 MG in SODIUM CHLORIDE 0.9% 100 ML IVPB ONE; +VANCOMYCIN 1,000 MG in SODIUM CHLORIDE 0.9% 250 ML IVPB ONE
[2018-08-05] MEDS ORDERED: ROPIVACAINE 1,100 MG, SODIUM CHLORIDE 0.9% 500 ML 330 ML MISCELLANE PRN ×2 (11:11)
[2018-08-05 11:16] LABS: Glucose,Whole Blood 107 mg/dL (75-99)
[2018-08-05] MEDS: LACTATED RINGERS 1,000 ML IV SCH ×2 (11:17→20:50)
[2018-08-05] MEDS ORDERED: MIDAZOLAM 2 MG/2 ML VIAL IV ONE (11:31)
[2018-08-05] MEDS ORDERED: fentaNYL (PF) 50 MCG/ML 2 ML AMP IV ONE (11:33)
[2018-08-05] MEDS ORDERED: NALOXONE 0.4 MG/ML 1 ML VIAL IV PRN (12:16)
[2018-08-05] MEDS ORDERED: DIAZEPAM 5 MG TAB PO PRN (12:16)
[2018-08-05] MEDS ORDERED: MAGNESIUM HYDROXIDE 2,400 MG/10 ML CUP PO PRN (12:16)
[2018-08-05] MEDS ORDERED: ONDANSETRON 4 MG/2 ML VIAL IVP PRN (12:16)
[2018-08-05] MEDS ORDERED: hydrOXYzine PAMOATE 25 MG CAP PO PRN (12:16)
[2018-08-05] MEDS ORDERED: HYDROmorphone 0.5 MG/0.5 ML SYRINGE IVP PRN ×3 (12:16)
[2018-08-05] MEDS ORDERED: HYDROcodone/APAP 5-325MG 1 EACH TAB PO PRN ×2 (12:16)
[2018-08-05] MEDS ORDERED: BISACODYL 10 MG SUPP RECTAL PRN (12:16)
[2018-08-05] MEDS ORDERED: NA PHOS,M-B/NA PHOS,DI-BA 133 ML ENEMA RECTAL PRN (12:16)
[2018-08-05] MEDS ORDERED: MIDAZOLAM 2 MG/2 ML VIAL ONE (12:46)
[2018-08-05] MEDS ORDERED: PROPOFOL 10 MG/ML 20 ML VIAL IV ONE (12:46)
[2018-08-05] MEDS ORDERED: KETAMINE 10 MG/ML 20 ML VIAL ONE (12:46)
[2018-08-05] MEDS ORDERED: ePHEDrine SULFATE/0.9% NACL/PF 50 MG/5 ML SYRINGE IV ONE (12:46)
[2018-08-05] MEDS ORDERED: ceFAZolin 3,000 MG in SODIUM CHLORIDE 0.9% IRRIGATIO 3,000 ML IRRIGATION ONE (12:51)
--- NOTE | 2018-08-05 13:45 | P.ONQ ---
Anesthesiology Proc Note - PNB - Peripheral Nerve Block Performed Left Adductor Canal Infusion Time Out Performed: Yes (5710) Procedure Start Time: 11:30 Procedure Stop Time: :40 Indication: Acute Post-Operative Pain, Dx/Pain Location (Left knee Pain), Requested by physician Sedation Type: Sedate with meaningful contact maintained Preparation: Sterile Prep Position: Supine Catheter: Indwelling Needle Types: On-Q Needle Size: 100mm (4") Needle Gauge: 21 Technique: Ultrasound Injectate: 0.5% Ropivacaine (see comment for volume) (20ml) Blood Aspirated: No Pain Paresthesia on Injection Noted: No Resistance on Injection: Normal Events: Uneventful and Well Tolerated
--- NOTE | 2018-08-05 14:35 | P.OP ---
Date of Procedure: 08/05/18 Preoperative Diagnosis: Severe osteoarthritis left knee Postoperative Diagnosis: Severe osteoarthritis left knee Procedure(s) Performed: Left total knee arthroplasty Implants: Oden [employer] Nephew Journey II Oxinium Bi-cruciate stabilized femoral component size 5, left Oden [employer] Nephew Journey left nonporous tibial baseplate size 4 Oden [employer] Nephew Journey II, XLPE constrained articular insert, size 9 mm, Size 3- 4 left Oden [employer]hew Journey BCS resurfacing oval patellar component, 29 mm All components were cemented using Palacos R bone cement.. The articulation is Oxinium on polyethylene. Anesthesia: spinal Surgeon: Vincenzo Lara Flight Attendant Inflight Services #1: Annamarie Becerra Estimated Blood Loss (ml): 50 Pathology: other (Bone and cartilage) Condition: stable Disposition: PACU Indications for Procedure: After failure of conservative treatment we discussed the surgical and nonsurgical treatment options at length. Patient wishes to proceed with a total knee arthroplasty. Complications specific to this procedure were discussed at length, including but not limited to infection, bleeding, stiffness, and nerve injury. Patient is aware of all these complications and informed consent was obtained Operative Findings: The operative findings are consistent with severe osteoarthritis of the left knee Description of Procedure: Patient was seen in the preoperative area consent was reviewed and operative site was marked with a skin marker. An adductor canal pain catheter was placed by anesthesia in the preoperative area. Patient was then brought to the operating room and given preoperative antibiotics intravenously. A spinal anesthetic was administered by the anesthesia department. A tourniquet was placed on the upper thigh and the lower extremity was prepped and draped in usual sterile fashion. A gram of transexamic acid was given. A universal timeout was then performed which confirmed the patient's name, surgical site, ALLERGIES, and consent. The lower extremity was then exsanguinated and tourniquet was inflated to 250 mmHg. A standard and anterior midline approach to the knee was performed. The skin and subcutaneous tissue was dissected down to the patellar tendon. A medial parapatellar arthrotomy was then performed. The knee was then extended, the patellar was everted, and the knee was again flexed. Anterior horns of both menisci were excised, and a release was performed to the posterior medial aspect of the knee. On gross visual inspection, there was complete loss of articular cartilage in the medial and patellofemoral joint spaces. There was also significant cartilage damage in the lateral compartment. There were multiple periarticular osteophytes which were then removed with a Ronguer. The femoral canal was then opened with the appropriate drill, and the intramedullary femoral cutting guide was then placed and set for 5 of valgus. The distal femoral cutting block was then pinned in place, and the distal femur was then cut. The cutting block was then removed and the cut was checked for flatness. Next, the sizing guide was then placed and set for 3 external rotation based off of the epicondylar axis and Whitesides line. After the femur was sized, the appropriate 4-in-1 cutting block was then pinned in place. The anterior condyles were cut without notching. The posterior and chamfer cuts were performed while protecting the collateral ligaments. The cutting block was then removed, and the femoral canal was plugged with autologous bone. Attention was then directed to the tibia. The remaining ACL was removed with a Ronguer, and the tibia was then gently subluxed forward with a large bent knee retractor. Any remaining menisci was excised. The posterior lateral corner was cauterized in order to cauterize the lateral geniculate artery. The extra medullary tibial cutting guide was then placed, set for the appropriate rotation, slope, and depth of resection. The proximal tibia cutting guide was then pinned in place. Proximal tibia was then cut and sized. Next trials were then placed with the appropriate-sized insert. The knee was able to fully extend, but in flexion there is medial and lateral instability. A box was then opened for the femur, and a box trial was placed with a constrained insert. The knee then had full range of motion and was stable throughout.. The knee was then extended, patella everted. Patella was then measured, and then using an osteotomy guide, the patella was cut at the appropriate level. The patella was then measured and drilled and the patella trial was then placed. The knee was then taken through range of motion with the patella trial and the patella tracked normally. The knee was then extended patella trial was then removed and the patella was everted. Knee was then flexed and lug holes were drilled through the femoral trial and the femoral trial was then removed. The tibial was then exposed, and the tibial broach guide was then pinned in place after it was set for the appropriate rotation to allow for the most coverage without overhang. The tibia was then reamed and broached. The cut surfaces of bone were then irrigated with pulsatile lavage. The posterior structures were injected with the ropivacaine solution. The knee was also irrigated with Irrisept solution. The components were then opened, the cement was mixed, and the components were then cemented in place. The cement was allowed to harden with the knee in full extension. While the cement was hardening, the remaining soft tissues were then injected with a ropivacaine solution, which consisted of 246.25 mg of ropivacaine, 0.5 mg of epinephrine, 30 mg of Toradol, 80 g of clonidine, and 48.45 mL of sterile water, for a total of 100 mL of fluid injected. After the cemented hardened. The tourniquet was released, and hemostasis was obtained. A second gram of transexamic acid was given. The knee was again irrigated. The knee was again taken through range of motion and found to be stable throughout all range of motion of 0-130, and the patella tracked normally. The fascia was then closed with #2 strata fix suture. The subcutaneous tissue was closed with 3-0 Vicryl and 3-0 strata fix. Dermabond glue was used for the skin and placed with the knee in flexion. The patient was placed in a sterile silver dressing. Patient was then transferred to recovery room in stable condition. The data assistant JONAH Garg was required due the complexity surgery and the need for a skilled surgical assistant certified. She assisted in positioning, draping, retraction, and closure of the wound.
[2018-08-05] MEDS ORDERED: LACTATED RINGERS 1,000 ML IV ONE (14:39)
--- NOTE | 2018-08-05 15:40 | XR ---
EXAMINATION TYPE: XR knee limited LT DATE OF EXAM: 08/05/2018 COMPARISON: None HISTORY: Postop knee TECHNIQUE: 2 view left knee FINDINGS: Tibial and femoral components of in place. Postsurgical changes are within the soft tissue. No significant joint effusion is evident. Vascular calcification is noted. No acute fractures or dis locations are evident. IMPRESSION: 1. No acute fractures post knee replacement.
[2018-08-05 15:54] LABS: Glucose,Whole Blood 119 mg/dL (75-99)
[2018-08-05] MEDS ORDERED: ALPRAZolam 0.25 MG TAB PO PRN (16:17)
[2018-08-05] MEDS ORDERED: IPRATROPIUM-ALBUTEROL 3 ML NEB INHALATION PRN (16:17)
[2018-08-05] MEDS ORDERED: SYMBICORT 160-4.5 MCG INHALER INHALATION PRN (16:17)
[2018-08-05] MEDS ORDERED: traZODone HCL 50 MG TAB PO PRN (16:17)
[2018-08-05] MEDS ORDERED: ALBUTEROL INHALER 60 PUFF/8 GM INHALER INHALATION PRN (16:17)
[2018-08-05] MEDS: INSULIN ASPART (NovoLOG) 100 UNIT/ML VIAL SQ SCH ×3 (17:10→20:49)
[2018-08-05] MEDS: CARVEDILOL 12.5 MG TAB PO SCH (17:12)
[2018-08-05] MEDS: SODIUM CHLORIDE 0.9% 1,000 ML IV SCH (17:13)
[2018-08-05 20:23] LABS: Glucose,Whole Blood 145 mg/dL (75-99)
[2018-08-05] MEDS: ASPIRIN 325 MG TAB PO SCH (20:50)
[2018-08-05] MEDS ORDERED: INSULIN DETEMIR (LEVEMIR) 100 UNIT/ML SYR SQ SCH (21:00)
[2018-08-05] MEDS ORDERED: SENNOSIDES-DOCUSATE SODIUM 1 EACH TAB PO SCH (21:00)
[2018-08-06] MEDS ORDERED: VANCOMYCIN 1,000 MG in SODIUM CHLORIDE 0.9% 250 ML IVPB ONE (02:00)
[2018-08-06] MEDS: SODIUM CHLORIDE 0.9% 1,000 ML IV SCH (02:52)
[2018-08-06 04:11] VITALS: RESP 18
[2018-08-06 07:31] LABS: Glucose,Whole Blood 156 mg/dL (75-99)
[2018-08-06] MEDS: ASPIRIN 325 MG TAB PO SCH (07:43)
[2018-08-06] MEDS: CARVEDILOL 12.5 MG TAB PO SCH (07:43)
[2018-08-06] MEDS: INSULIN ASPART (NovoLOG) 100 UNIT/ML VIAL SQ SCH ×4 (07:44→12:12)
[2018-08-06 07:49] VITALS: BP 137/74; TEMP 98.7
[2018-08-06 07:59] LABS: Glucose,Whole Blood 143 mg/dL (75-99)
[2018-08-06 08:02] LABS: Anisocytosis Slight; Basophils % (A) 0 %; Eosinophils % (A) 0 %; HCT 36.5 % (34.0-46.0); HGB 11.3 gm/dL (11.4-16.0); Hypochromasia Slight; Lymphocytes # (A) 0.5 k/uL (1.0-4.8); Lymphocytes % (A) 5 %; MCH 28.3 pg (25.0-35.0); MCHC 31.1 g/dL (31.0-37.0); MCV 90.9 fL (80.0-100.0); Mean Platelet Volume 7.2; Monocytes # (A) 0.3 k/uL (0-1.0); Monocytes % (A) 3 %; Neutrophils # (A) 7.6 k/uL (1.3-7.7); Neutrophils % (A) 90 %; Platelet Count 211 k/uL (150-450); RBC 4.01 m/uL (3.80-5.40); RDW 17.1 % (11.5-15.5); WBC 8.4 k/uL (3.8-10.6)
--- NOTE | 2018-08-06 08:43 | P.DS ---
Providers Date of admission: 08/05/18 10:23 Expected date of discharge: 08/06/18 Attending physician: Vincenzo Lara Consults: 08/05/18 12:16 Consult Physician Routine Consulting Provider: Pastora Frazier Consult Reason/Comments: medical management Do you want consulting provider notified?: Yes Primary care physician: Pastora Karin - Discharge Diagnosis(es) (1) Osteoarthritis of left knee Current Visit: Yes Status: Acute (2) S/P total knee arthroplasty Current Visit: Yes Status: Acute (3) COPD (chronic obstructive pulmonary disease) Current Visit: Yes Status: Acute (4) Diabetes mellitus Current Visit: Yes Status: Acute (5) Hyperlipidemia Current Visit: Yes Status: Acute (6) Hypertension Current Visit: Yes Status: Acute Hospital Course: This is a 73-year-old female with known history of degenerative arthritis of the left knee. The patient presents for evaluation. After discussion and consideration patient elects to proceed with total knee arthroplasty. The patient is seen preoperatively by Dr. Lara and medically cleared for surgery by their primary care physician. Patient is admitted to [facility] on 08/05/2018 for total knee arthroplasty. The procedures performed without complication or sequelae. The patient is doing well postoperatively. Labs and vital signs are stable on day of discharge. On day of discharge patient's knee incision is healing well. There is minimal erythema. There is no drainage noted at this time. There is minimal soft tissue swelling to the knee. Patient has full foot and ankle motion without difficulty or pain. Calf is soft and nontender to palpation. Neurovascular status to the left lower extremity is intact. Patient is discharged home in good condition. Opioid start talking form is reviewed and signed at patient bedside. Please see med rec for accurate list of home medications. Plan - Discharge Summary Discharge Rx Participant: No New Discharge Prescriptions: New Aspirin 325 mg PO BID #60 tab HYDROcodone/APAP 5-325MG [[place] 5-325] 1 - 2 tab PO Q6HR PRN #56 tab PRN Reason: Pain Sennosides [Senokot] 1 tab PO BID #60 tablet No Action ALPRAZolam [Xanax] 0.25 mg PO Q8HR PRN PRN Reason: Anxiety Insulin Detemir (Levemir) [Levemir] 23 unit SQ HS Aspirin 81 mg PO DAILY INSULIN LISPRO (humaLOG) [humaLOG] 7 units SQ AC-TID Ascorbic Acid [Vitamin C] 500 mg PO MOWEFR Fenofibrate [Lofibra] 54 mg PO DAILY Ubidecarenone [Co Q-10] 200 mg PO DAILY Stryker-3 Fatty Acids/Fish Oil [Fish Oil 1,000 mg Softgel] 1 cap PO DAILY Losartan Potassium 50 mg PO QAM Fluticasone/Vilanterol [Breo Ellipta 200-25 Mcg INH] 1 inhalation INHALATION DAILY PRN PRN Reason: Shortness Of Breath Carvedilol 25 mg PO BID traZODone HCL 50 mg PO HS PRN PRN Reason: sleeplessness Cholecalciferol [Vitamin D3] 1,000 unit PO DAILY Albuterol Inhaler [Ventolin Hfa Inhaler] 1 - 2 puff INHALATION RT-Q6H PRN PRN Reason: Shortness Of Breath Red Yeast Rice 600 mg PO DAILY Ipratropium-Albuterol Nebulize [Duoneb 0.5 mg-3 mg/3 ml Soln] 3 ml INHALATION RT-QID PRN PRN Reason: Shortness Of Breath Discharge Medication List ALPRAZolam [Xanax] 0.25 mg PO Q8HR PRN 10/05/17 [History] Ascorbic Acid [Vitamin C] 500 mg PO MOWEFR 10/05/17 [History] Aspirin 81 mg PO DAILY 10/05/17 [History] Carvedilol 25 mg PO BID 10/05/17 [History] Fenofibrate [Lofibra] 54 mg PO DAILY 10/05/17 [History] Fluticasone/Vilanterol [Breo Ellipta 200-25 Mcg INH] 1 inhalation INHALATION DAILY PRN 10/05/17 [History] INSULIN LISPRO (humaLOG) [humaLOG] 7 units SQ AC-TID 10/05/17 [History] Insulin Detemir (Levemir) [Levemir] 23 unit SQ HS 10/05/17 [History] Losartan Potassium 50 mg PO QAM 10/05/17 [History] Stryker-3 Fatty Acids/Fish Oil [Fish Oil 1,000 mg Softgel] 1 cap PO DAILY 10/05/17 [History] Ubidecarenone [Co Q-10] 200 mg PO DAILY 10/05/17 [History] Albuterol Inhaler [Ventolin Hfa Inhaler] 1 - 2 puff INHALATION RT-Q6H PRN 07/24/18 [History] Cholecalciferol [Vitamin D3] 1,000 unit PO DAILY 07/24/18 [History] Ipratropium-Albuterol Nebulize [Duoneb 0.5 mg-3 mg/3 ml Soln] 3 ml INHALATION RT-QID PRN 07/24/18 [History] Red Yeast Rice 600 mg PO DAILY 07/24/18 [History] traZODone HCL 50 mg PO HS PRN 07/24/18 [History] Aspirin 325 mg PO BID #60 tab 08/06/18 [Rx] HYDROcodone/APAP 5-325MG [[place] 5-325] 1 - 2 tab PO Q6HR PRN #56 tab 08/06/18 [Rx] Sennosides [Senokot] 1 tab PO BID #60 tablet 08/06/18 [Rx] Follow up Appointment(s)/Referral(s): Vincenzo Lara DO [Doctor of Osteopathic Medicine] - 2 Weeks Ambulatory/Diagnostic Orders: Continuous Passive Motion (CPM) Machine [DME.AMB1] Time Frame: 3 Weeks, Location: None Selected Activity/Diet/Wound Care/Special Instructions: Weightbearing as tolerated with a walker. CPM 5-6h daily. Leave dressing intact. May be removed by home care nurse or by patient in 10 days. May shower with dressing on. Please follow up with [facility] and call with any questions or concerns, . Discharge Disposition: HOME WITH HOME HEALTH SERVICES
[2018-08-06 08:56] VITALS: PULSE 90
[2018-08-06] MEDS ORDERED: CHOLECALCIFEROL 1,000 UNIT TAB PO SCH (09:00)
[2018-08-06] MEDS ORDERED: MELOXICAM 7.5 MG TAB PO SCH (09:00)
[2018-08-06] MEDS ORDERED: LOSARTAN 50 MG TAB PO SCH (09:00)
[2018-08-06] MEDS ORDERED: ASCORBIC ACID 500 MG TAB PO SCH (09:00)
[2018-08-06] MEDS ORDERED: FENOFIBRATE 54 MG TAB PO SCH (09:00)
--- NOTE | 2018-08-06 09:41 | P.PN ---
Progress Note - Text Progress Note Date: 08/06/18 Postoperative day # 1 status post Left total knee arthroplasty, under spinal anesthesia, and adductor canal catheter placed for postoperative analgesia, currently at ropivacaine 0.2% 8 mL per hour and continuous infusion, visual analogue scale is 1/10, patient using oral pain medication for breakthrough pain. Assessment and plan= Acute postoperative pain, adductor canal catheter for pain control, pain is well controlled we'll continue the same management.
[2018-08-06 11:43] LABS: Glucose,Whole Blood 71 mg/dL (75-99)
--- NOTE | 2018-08-06 14:10 | P.CONS ---
History of Present Illness - Reason for Consult Consult date: 08/06/18 Medical management - History of Present Illness This is a 72-year-old female patient of Dr. Frazier with past history for COPD, diabetes mellitus type 2 insulin requiring, hypertension, hyperlipidemia, generalized osteoarthritis, generalized anxiety disorder. Patient has history of osteoarthritis and has been admitted under the care of Dr. Lara status post left total knee arthroplasty completed yesterday. Patient has had no postop complications. She denies having any chest pain, shortness of breath cough or sputum production. She denies any nausea vomiting or diarrhea. Patient has worked with physical therapy today and is scheduled for discharge home today. Patient does have home O2 that she only uses at bedtime. Review of Systems All systems: negative Constitutional: Denies fatigue, Denies chills, Denies fever, Denies weight loss Eyes: denies blurred vision, denies pain Ears, nose, mouth and throat: Denies dysphagia, Denies headache, Denies mouth pain, Denies sore throat, Denies vertigo Cardiovascular: Denies decreased exercise tolerance, denies dyspnea on exertion, denies shortness of breath, Denies chest pain, Denies edema, Denies leg edema, D enies lightheadedness, Denies syncope Respiratory: Denies congestion, denies cough, denies cough with sputum, denies dyspnea, denies respiratory infections, Denies excessive sputum, Denies hemoptysis, Denies home oxygen Gastrointestinal: Denies abdominal pain, Denies diarrhea, Denies nausea, Denies vomiting Genitourinary: Denies dysuria, Denies hematuria Musculoskeletal: Denies myalgias Integumentary: Denies pruritus, Denies rash Neurological: Denies numbness, Denies weakness Psychiatric: Denies anxiety, Denies depression Endocrine: Denies fatigue, Denies weight change Review of Systems All systems: negative Constitutional: Denies chills, Denies fever Eyes: denies blurred vision, denies pain Ears, nose, mouth and throat: Denies headache, Denies sore throat Cardiovascular: Denies chest pain, Denies shortness of breath Respiratory: Denies cough Gastrointestinal: Denies abdominal pain, Denies diarrhea, Denies nausea, Denies vomiting Genitourinary: Denies dysuria, Denies hematuria Musculoskeletal: Denies myalgias Integumentary: Denies pruritus, Denies rash Neurological: Denies numbness, Denies weakness Psychiatric: Denies anxiety, Denies depression Endocrine: Denies fatigue, Denies weight change Past Medical History Past Medical History: COPD, Diabetes Mellitus, Hyperlipidemia, Hypertension, Osteoarthritis (OA) Additional Past Medical History / Comment(s): currently being treated for UTI History of Any Multi-Drug Resistant Organisms: None Reported Past Surgical History: Hysterectomy Additional Past Surgical History / Comment(s): large bowel resection 2012, ileostomy reversal, small bowel resection 2013, left femur fx 1968, TLK 07/2018 Past Anesthesia/Blood Transfusion Reactions: No Reported Reaction Past Psychological History: Anxiety Smoking Status: Former smoker Past Alcohol Use History: None Reported Additional Past Alcohol Use History / Comment(s): Patient was a smoker of 2 packs per day for 56 years, then down to 1/2ppd quit first June 2018. No illicit drug use or alcohol use. Patient does have home oxygen that she uses at nighttime only. Past Drug Use History: None Reported - Past Family History Mother Additional Family Medical History / Comment(s): heart problems Father Family Medical History: Cancer Additional Family Medical History / Comment(s): was a smoker and had lung cancer with lung resection done and heart problems Medications and Allergies Home Medications Medication Instructions Recorded Confirmed Type ALPRAZolam [Xanax] 0.25 mg PO Q8HR PRN 10/05/17 08/05/18 History Ascorbic Acid [Vitamin C] 500 mg PO MOWEFR 10/05/17 08/05/18 History Carvedilol 25 mg PO BID 10/05/17 08/05/18 History Fenofibrate [Lofibra] 54 mg PO DAILY 10/05/17 08/05/18 History Fluticasone/Vilanterol [Breo 1 inhalation INHALATION DAILY PRN 10/05/17 08/05/18 History Ellipta 200-25 Mcg INH] INSULIN LISPRO (humaLOG) [humaLOG] 7 units SQ AC-TID 10/05/17 08/05/18 History Insulin Detemir (Levemir) [Levemir] 23 unit SQ HS 10/05/17 08/05/18 History Losartan Potassium 50 mg PO QAM 10/05/17 08/05/18 History Canyon-3 Fatty Acids/Fish Oil [Fish 1 cap PO DAILY 10/05/17 08/05/18 History Oil 1,000 mg Softgel] Ubidecarenone [Co Q-10] 200 mg PO DAILY 10/05/17 08/05/18 History Albuterol Inhaler [Ventolin Hfa 1 - 2 puff INHALATION RT-Q6H PRN 07/24/18 History Inhaler] Cholecalciferol [Vitamin D3] 1,000 unit PO DAILY 07/24/18 08/05/18 History Ipratropium-Albuterol Nebulize 3 ml INHALATION RT-QID PRN 07/24/18 08/05/18 History [Duoneb 0.5 mg-3 mg/3 ml Soln] Red Yeast Rice 600 mg PO DAILY 07/24/18 08/05/18 History traZODone HCL 50 mg PO HS PRN 07/24/18 08/05/18 History Aspirin 81 mg PO DAILY #0 08/06/18 08/05/18 Rx Aspirin 325 mg PO BID #60 tab 08/06/18 Rx HYDROcodone/APAP 5-325MG [[place] 1 - 2 tab PO Q6HR PRN #56 tab 08/06/18 Rx 5-325] Sennosides [Senokot] 1 tab PO BID #60 tablet 08/06/18 Rx Allergies Allergy/AdvReac Type Severity Reaction Status Date / Time No Known Allergies Allergy Verified 08/05/18 18:40 Physical Exam Vitals: Vital Signs Temp Pulse Pulse Pulse Pulse Resp BP 08/06/18 08:05 74 08/06/18 07:55 72 08/06/18 07:26 98.7 F 71 18 137/74 08/06/18 07:00 97.7 F 90 12 127/66 08/06/18 04:10 18 08/06/18 02:36 69 08/06/18 01:04 98.2 F 73 17 08/05/18 23:40 18 08/05/18 22:49 98.8 F 67 16 08/05/18 19:12 97.6 F 72 18 08/05/18 18:00 71 08/05/18 17:45 75 20 08/05/18 17:30 71 16 08/05/18 17:15 08/05/18 17:00 08/05/18 16:45 08/05/18 16:30 97.4 F L 61 16 08/05/18 15:45 61 18 08/05/18 15:30 60 18 08/05/18 15:15 60 18 08/05/18 14:55 97.3 F L 60 12 08/05/18 10:53 98.2 F 64 16 BP Pulse Ox 08/06/18 08:05 08/06/18 07:55 08/06/18 07:26 95 08/06/18 07:00 97 08/06/18 04:10 08/06/18 02:36 138/58 95 08/06/18 01:04 135/56 97 08/05/18 23:40 08/05/18 22:49 120/63 95 08/05/18 19:12 144/76 95 08/05/18 18:00 147/76 95 08/05/18 17:45 111/56 96 08/05/18 17:30 132/77 97 08/05/18 17:15 145/78 97 08/05/18 17:00 127/73 94 L 08/05/18 16:45 134/73 92 L 08/05/18 16:30 125/72 91 L 08/05/18 15:45 139/63 93 L 08/05/18 15:30 130/66 93 L 08/05/18 15:15 133/59 92 L 08/05/18 14:55 123/59 92 L 08/05/18 10:53 158/74 94 L Intake and Output 08/05/18 08/06/18 08/06/18 22:59 06:59 14:59 Intake Total 820 520 Output Total 300 Balance 520 520 Intake: IV 100 Intake, IV Titration 520 520 Amount Sodium Chloride 0.9% 1, 520 520 000 ml @ 65 mls/hr IV . [id number] [facility] Rx#:[id number] Oral 200 Output: Urine 300 Other: Voiding Method Toilet Toilet # Voids 2 2 Gen: This is a 72-year-old female patient. She is sitting in recliner and appears to be comfortable and in no acute distress. HEENT: Head is atraumatic, normocephalic. Pupils equal, round. Sclerae is anicteric. NECK: Supple. No JVD. No lymphadenopathy. No thyromegaly. LUNGS: Clear to auscultation. No wheezing, rhonchi, rales. No intercostal retractions. HEART: Regular rate and rhythm. No murmur. ABDOMEN: Soft. Bowel sounds are present. No masses. No tenderness. EXTREMITIES: No pedal edema. No calf tenderness. Small dressing in place to the left knee. NEUROLOGICAL: Patient is awake, alert and oriented x3. Cranial nerves 2 through 12 are grossly intact. Results CBC & Chem 7: 08/06/18 07:24 Labs: Abnormal Lab Results - Last 24 Hours (Table) 08/05/18 08/05/18 08/05/18 Range/Units 11:14 15:51 20:22 Hgb (11.4-16.0) gm/dL RDW (11.5-15.5) % Lymphocytes # (1.0-4.8) k/uL POC Glucose (mg/dL) 107 H 119 H 145 H (75-99) mg/dL 08/06/18 08/06/18 08/06/18 Range/Units 07:24 07:26 07:58 Hgb 11.3 L (11.4-16.0) gm/dL RDW 17.1 H (11.5-15.5) % Lymphocytes # 0.5 L (1.0-4.8) k/uL POC Glucose (mg/dL) 156 H 143 H (75-99) mg/dL Assessment and Plan Plan: 1. Osteoarthritis status post left knee arthroplasty. Continue pain man agement, PT and OT per orthopedics. Continue aspirin 325 mg twice daily for DVT prophylaxis. Patient to be off aspirin 81 mg well on the higher dose and resume once her course is completed. 2. Diabetes mellitus type 2, insulin requiring. Continue Levemir 23 units at bedtime, 7 units with meals. 3. Hypertension. Continue Coreg 25 mg twice daily, losartan 50 mg daily. 4. Hyperlipidemia. Continue fenofibrate, omega-3. 5. Generalized anxiety disorder. Continue Xanax or 0.25 mg every 8 hours as needed, trazodone 50 mg at bedtime as needed. 6. History of bowel resection. Discharge plan: Home today Impression and plan of care have been directed as dictated by the signing physician. Annie Ba nurse practitioner acting as scribe for signing physician.
== END 2018-08-06 13:08 | disposition home health service (06) | DRG 470 ==
LOC: 2ORMAIN 10:23 → 4SSUR 15:15
PROVIDERS: ADMIT Orthopaedic Surgery; ATTEND Orthopaedic Surgery
PROC: 0SRD069 Replacement of Left Knee Joint with Oxidized Zirconium on Polyethylene Synthetic Substitute, Cemented, Open Approach (ICD-10-PCS; principal; 2018-08-05 15:05)
DX: M17.12 Unilateral primary osteoarthritis, left knee (principal); J44.9 Chronic obstructive pulmonary disease, unspecified; E11.9 Type 2 diabetes mellitus without complications; I10 Essential (primary) hypertension; F41.1 Generalized anxiety disorder; E78.5 Hyperlipidemia, unspecified; Z79.4 Long term (current) use of insulin; Z79.82 Long term (current) use of aspirin; Z79.899 Other long term (current) drug therapy; Z87.440 Personal history of urinary (tract) infections; Z90.710 Acquired absence of both cervix and uterus; Z90.49 Acquired absence of other specified parts of digestive tract; Z87.891 Personal history of nicotine dependence; Z87.81 Personal history of (healed) traumatic fracture; Z80.1 Family history of malignant neoplasm of trachea, bronchus and lung
CPT/HCPCS: 85025; 88300; 94640

== ENCOUNTER 2018-09-09 09:50 | Day surgery (SDC) | payer MEDICARE ==
[~2018-09-09 09:50] MED LIST changes: +LACTATED RINGERS 1,000 ML IV SCH; +LIDOCAINE 1% 20 ML VIAL (10MG/ML) FOR IV START INTRADERMA PRN; +MIDAZOLAM 2 MG/2 ML VIAL IV PRN; -MORPHINE SULFATE 2 MG/ML SYRINGE IV PRN; -ROPIVACAINE 246.25 MG, EPINEPHrine 0.5 MG, KETOROLAC 30 MG, cloNIDine HCL/PF 80 MCG, WA... MISCELLANE ONE; +SCOPOLAMINE 1.5MG/72HR PATCH TRANSDERM ONE; -VANCOMYCIN 1,000 MG in SODIUM CHLORIDE 0.9% 250 ML IVPB ONE; +ceFAZolin IN SWFI 2 GM/20 ML SYRINGE IVP ONE
[2018-09-09 10:45] LABS: Glucose,Whole Blood 93 mg/dL (75-99)
[2018-09-09] MEDS ORDERED: hydrOXYzine PAMOATE 25 MG CAP PO PRN (11:36)
[2018-09-09] MEDS ORDERED: HYDROmorphone 0.5 MG/0.5 ML SYRINGE IVP PRN ×2 (11:36)
[2018-09-09] MEDS ORDERED: BISACODYL 10 MG SUPP RECTAL PRN (11:36)
[2018-09-09] MEDS ORDERED: MAGNESIUM HYDROXIDE 2,400 MG/10 ML CUP PO PRN (11:36)
[2018-09-09] MEDS ORDERED: NA PHOS,M-B/NA PHOS,DI-BA 133 ML ENEMA RECTAL PRN (11:36)
[2018-09-09] MEDS ORDERED: ONDANSETRON 4 MG/2 ML VIAL IVP PRN (11:36)
[2018-09-09] MEDS ORDERED: NALOXONE 0.4 MG/ML 1 ML VIAL IV PRN (11:36)
[2018-09-09] MEDS ORDERED: fentaNYL (PF) 50 MCG/ML 2 ML AMP ONE (11:37)
[2018-09-09] MEDS ORDERED: TRANEXAMIC ACID 1,000 MG/10 ML VIAL ONE (11:37)
[2018-09-09] MEDS ORDERED: PHENYLEPHRINE-0.9% NACL SYG 1 MG/10 ML SYRINGE ONE (11:37)
[2018-09-09] MEDS ORDERED: MIDAZOLAM 2 MG/2 ML VIAL ONE (11:37)
[2018-09-09] MEDS ORDERED: SODIUM CHLORIDE 0.9% 100 ML BAG ONE (11:37)
[2018-09-09] MEDS ORDERED: PROPOFOL 10 MG/ML 20 ML VIAL IV ONE (11:37)
--- NOTE | 2018-09-09 12:30 | P.OP ---
Date of Procedure: 09/09/18 Preoperative Diagnosis: Tear patellar retinaculum the left knee Postoperative Diagnosis: Tear quadriceps tendon left knee Procedure(s) Performed: Repair quadriceps tendon left knee Anesthesia: spinal Surgeon: Vincenzo Lara Truck Hop #1: Annamarie Becerra Estimated Blood Loss (ml): 25 Pathology: none sent Condition: stable Disposition: PACU Indications for Procedure: This is a 73 old female has had a left total knee arthroplasty performed by myself on 08/05/2018. She did well in the medial postoperative period, but then suddenly began having difficulty extending the left knee at physical therapy. She was seen in the office and evaluated. She had difficulty extending her left knee actively and also there was felt to be a defect in the superior lateral aspect of her patella with a patellar retinaculum was located. After discussing the surgical nonsurgical treatment options with her at length, I recommended open repair of the patellar retinaculum and informed consent was obtained. Operative Findings: The operative findings are consistent with a tear of the quadriceps tendon. Description of Procedure: The patient was seen and evaluated in the preoperative area. Operative site was marked with a skin marker. The patient was then brought to the operating room and given 2 g of Ancef intravenously. A spinal anesthetic was administered by the anesthesia department. Tourniquet was placed on the right upper thigh and the right lower extremities and prepped and draped in usual sterile fashion. A universal timeout was then performed which confirmed the patient's name, surgical site, ALLERGIES, and consent. The knee was then exsanguinated and the tourniquet was inflated to 250 mmHg. The prior incision was then opened with extension of the incision proximally in order to visualize the entire quadriceps tendon and patellar retinaculum. Patellar retinaculum and quadriceps tendon was found to be torn and was repaired with #1 Vicryl suture. After the repair of the knee was taken through range of motion and found to be stable. He was also irrigated with antibiotic solution. The skin was then closed with 3-0 Vicryl followed by 30 strata fix for the skin. Sterile dressing was applied and patient was then placed in a knee immobilizer. Patient was then transferred recovery room in stable condition. The stonecutter assistant JONAH Garg was required due the complexity of surgery the need for skilled financial planning assistant.
[2018-09-09 13:08] LABS: Glucose,Whole Blood 93 mg/dL (75-99)
[2018-09-09 13:59] VITALS: BMI 23.7
[2018-09-09] MEDS: SODIUM CHLORIDE 0.9% 1,000 ML IV SCH (14:14)
[2018-09-09] MEDS: HYDROmorphone 0.5 MG/0.5 ML SYRINGE IVP PRN ×3 (16:26→23:50)
[2018-09-09 17:11] LABS: Glucose,Whole Blood 158 mg/dL (75-99)
[2018-09-09] MEDS: HYDROcodone/APAP 5-325MG 1 EACH TAB PO PRN ×2 (17:13→22:33)
[2018-09-09] MEDS: INSULIN ASPART (NovoLOG) 100 UNIT/ML VIAL SQ SCH ×2 (17:46→20:49)
[2018-09-09] MEDS ORDERED: IPRATROPIUM-ALBUTEROL 3 ML NEB INHALATION PRN (19:01)
[2018-09-09] MEDS ORDERED: ALBUTEROL NEBULIZED 2.5 MG/3 ML INHALATION PRN (19:01)
[2018-09-09] MEDS ORDERED: ALPRAZolam 0.25 MG TAB PO PRN (19:01)
[2018-09-09 20:39] LABS: Glucose,Whole Blood 170 mg/dL (75-99)
[2018-09-09] MEDS: ASPIRIN 325 MG TAB PO SCH (20:48)
[2018-09-09] MEDS: CARVEDILOL 12.5 MG TAB PO SCH (20:48)
[2018-09-09] MEDS: SENNOSIDES-DOCUSATE SODIUM 1 EACH TAB PO SCH (20:48)
[2018-09-09] MEDS: ceFAZolin IN SWFI 2 GM/20 ML SYRINGE IVP SCH (20:48)
[2018-09-09] MEDS: INSULIN DETEMIR (LEVEMIR) 100 UNIT/ML SYR SQ SCH (20:49)
--- NOTE | 2018-09-09 21:46 | P.CONS ---
History of Present Illness - Reason for Consult Consult date: 09/09/18 medical management Requesting physician: Vincenzo Lara - Chief Complaint post patellar and quadriceps tender repair , recent history of total knee - History of Present Illness 72-year-old female one of Dr. Frazier's patient who was hospitalized on July 21 for left total knee arthroplasty which was done successfully with no complication, patient was doing physical therapy and done well first 2 weeks then developed to have severe discomfort not been able to lift her leg up and not been able to participate in any physical therapy. Patient was seen Dr. Lonnie abarca with his exam decided that she might have tear of the patellar retinaculum with rupture of the quadriceps tendon. Patient wrote to the hospital today 09/09/2018 and and had repair of the patellar retinaculum and quadriceps tendon repair. Was admitted to the floor was slightly bit drowsy from anesthesia, was kept on O2 fluid resuscitation and watch her pulse oximetry has improved within an hour doing well she is still laying in bed able to interact quite bed. Review of Systems CONSTITUTIONAL: Well-developed no acute respiratory distress. EYES: No icterus sclerae, no conjunctivitis. EARS, NOSE, MOUTH, THROAT, and FACE: No sore throat, lymphadenopathy, carotid bruits or deformity. RESPIRATORY: No SOB cough or wheezes. CARDIOVASCULAR: No CP, Palpitation, PND, Orthopnea, or angina. GASTROINTESTINAL: No Abd pain, Nausea or vomiting, no Diarrhea or constipation, No GI Bleed, no distention or masses. GENITOURINARY: Negative for Hematuria or UTI, no kidney stones. INTEGUMENT/BREAST: Negative for any muscular injury with mild osteoarthritis.. HEMATOLOGIC/LYMPHATIC: Negative for bleed or purpura. MUSCULOSKELTAL: positive pain and discomfort of the left knee NEURLOGICAL: No LOC, Sz or syncope, blurred vision dizziness or abnormality.. BEHAVIORAL/PSYCH: Negative. ENDOCRINE: Negative. Past Medical History Past Medical History: COPD, Diabetes Mellitus, Hyperlipidemia, Hypertension, Pneumonia Additional Past Medical History / Comment(s): currently being treated for UTI History of Any Multi-Drug Resistant Organisms: None Reported Past Surgical History: Bowel Resection, Hysterectomy, Joint Replacement, Orthopedic Surgery Additional Past Surgical History / Comment(s): colon resection with ileostomy/later reversal, surgery for fx left femur, left knee replacement 07/2018, Past Anesthesia/Blood Transfusion Reactions: No Reported Reaction Past Psychological History: No Psychological Hx Reported Smoking Status: Former smoker Past Alcohol Use History: None Reported Additional Past Alcohol Use History / Comment(s): 2 PPD for 56 years, quit smoking 05/2018 Past Drug Use History: None Reported - Past Family History Mother Additional Family Medical History / Comment(s): heart problems Father Family Medical History: Cancer Additional Family Medical History / Comment(s): lung Sister(s) Family Medical History: Cancer Additional Family Medical History / Comment(s): leukemia Medications and Allergies Home Medications Medication Instructions Recorded Confirmed Type ALPRAZolam [Xanax] 0.25 mg PO Q8HR PRN 10/05/17 09/09/18 History Ascorbic Acid [Vitamin C] 500 mg PO MOWEFR 10/05/17 09/09/18 History Carvedilol 25 mg PO BID 10/05/17 09/09/18 History Fenofibrate [Lofibra] 54 mg PO DAILY 10/05/17 09/09/18 History Fluticasone/Vilanterol [Breo 1 inhalation INHALATION DAILY PRN 10/05/17 09/09/18 History Ellipta 200-25 Mcg INH] INSULIN LISPRO (humaLOG) [humaLOG] 7 units SQ AC-TID 10/05/17 09/09/18 History Insulin Detemir (Levemir) [Levemir] 23 unit SQ HS 10/05/17 09/09/18 History Losartan Potassium 50 mg PO QAM 10/05/17 09/09/18 History [place]-3 Fatty Acids/Fish Oil [Fish 1 cap PO DAILY 10/05/17 09/09/18 History Oil 1,000 mg Softgel] Ubidecarenone [Co Q-10] 200 mg PO DAILY 10/05/17 09/09/18 History Albuterol Inhaler [Ventolin Hfa 1 - 2 puff INHALATION Q6HR PRN 07/24/18 09/09/18 History Inhaler] Cholecalciferol [Vitamin D3 (25 2,000 mg PO DAILY 07/24/18 09/09/18 History Mcg = 1000 Iu)] Ipratropium-Albuterol Nebulize 3 ml INHALATION QID PRN 07/24/18 09/09/18 History [Duoneb 0.5 mg-3 mg/3 ml Soln] Red Yeast Rice 600 mg PO DAILY 07/24/18 09/09/18 History Aspirin 81 mg PO DAILY #0 08/06/18 09/09/18 Rx HYDROcodone/APAP 5-325MG [[place] 1 - 2 tab PO Q6HR PRN 09/04/18 09/09/18 History 5-325] Allergies Allergy/AdvReac Type Severity Reaction Status Date / Time No Known Allergies Allergy Verified 09/04/18 09:57 Physical Exam Vitals: Vital Signs Temp Pulse Resp BP Pulse Ox 09/09/18 14:36 74 123/59 09/09/18 14:17 70 130/60 09/09/18 14:02 70 105/55 09/09/18 13:41 73 123/58 09/09/18 13:36 97.4 F L 76 16 145/65 97 09/09/18 13:31 78 16 133/64 98 09/09/18 13:17 77 16 117/59 97 09/09/18 13:05 72 16 115/57 100 09/09/18 12:43 97.5 F L 78 16 114/58 98 09/09/18 10:31 97.4 F L 90 16 142/65 94 L Intake and Output 09/09/18 09/09/18 09/09/18 06:59 14:59 22:59 Intake Total 400 Output Total 25 Balance 375 Intake: IV 400 Output: Estimated Blood Loss 25 General Appearance: Alert, cooperative, no distress, appears stated age. still mildly drowsy and recovering from her surgery. Neck HEENT: Supple, no lymphadenopathy, no thyroid enlargement, no carotid bruits. Lungs: decreased breath some bilaterally with fine rhonchi no crackles positive mild expiratory wheezes. Chest Wall: decrease expansion with deep inspiration no tenderness and no deformity was found on exam, no costochondral pain or discomfort. Heart: Regular rate and rhythm, S1, S2 normal, no murmur, rub or gallop. Back: Symmetric, no curvature, ROM normal, no CVA tenderness. Abdomen: Soft, non-tender, bowel sounds active all four quadrants, no masses, no organomegaly. Extremities: incision the left side looks fine with no hematoma no bleeding patient still wearing a brace at the time able to wiggle her toes, pulse is palpable. Pulses: 2+ and symmetric. Skin: Skin color, texture, tugor normal, no rashes or lesions. Neurologic: Alert oriented x3 cranial nerves II through XII intact, no motor deficit, no abnormal balance or gait. Results Labs: Abnormal Lab Results - Last 24 Hours (Table) 09/09/18 09/09/18 Range/Units 17:08 20:33 POC Glucose (mg/dL) 158 H 170 H (75-99) mg/dL Assessment and Plan Plan: 1 post left knee patellar tear repair: Patient is doing very well surgery resume home meds continue to watch patient hemodynamic status. 2 type 2 diabetes: Remain on Levemir 23 units daily at bedtime and Humalog 7 units before meals meals still on Accu-Chek with sliding scales coverage as well. 3 COPD: Continue patient on Ventolin HFA updraft treatment and Brio inhaler. 4 atherosclerotic heart disease: Stable on losartan and Coreg. Hyperlipidemia: Continue fenofibrate 54 mg daily not able to tolerate statin well still on red yeast rice. 6 hypertension: Remain on losartan 50 mg a day and Coreg 25 mg twice a day. 7 pain management: Remain on hydrocodone orally doing well. 8 GI prophylaxis: Remain on Pepcid 20 mg daily. 9 DVT prophylaxis: Post knee surgery patient still on aspirin per orthopedic protocol. CODE STATUS: Full code. Dr. Lara thank you very much for the consult if I can be any further help to please let me know.
[2018-09-10] MEDS: SODIUM CHLORIDE 0.9% 1,000 ML IV SCH (03:57)
[2018-09-10] MEDS: ceFAZolin IN SWFI 2 GM/20 ML SYRINGE IVP SCH (03:57)
[2018-09-10 07:31] LABS: Glucose,Whole Blood 110 mg/dL (75-99)
[2018-09-10] MEDS: SYMBICORT 160-4.5 MCG INHALER INHALATION PRN ×2 (07:41→19:46)
[2018-09-10] MEDS: LOSARTAN 50 MG TAB PO SCH (07:44)
[2018-09-10] MEDS: MELOXICAM 7.5 MG TAB PO SCH (07:44)
[2018-09-10] MEDS: CARVEDILOL 12.5 MG TAB PO SCH ×2 (07:45→16:44)
[2018-09-10] MEDS: ASPIRIN 325 MG TAB PO SCH ×2 (07:45→20:35)
[2018-09-10] MEDS: INSULIN ASPART (NovoLOG) 100 UNIT/ML VIAL SQ SCH ×7 (07:45→20:18)
[2018-09-10] MEDS: FENOFIBRATE 54 MG TAB PO SCH (07:45)
[2018-09-10] MEDS: NON-FORMULARY DRUG (Ubidecarenone [Co Q-10] 200 MG) PO SCH (07:48)
[2018-09-10] MEDS: HYDROcodone/APAP 5-325MG 1 EACH TAB PO PRN ×3 (08:35→20:35)
--- NOTE | 2018-09-10 08:49 | P.PN ---
Subjective Progress Note Date: 09/10/18 This is a 73-year-old female who is status post repair of quadriceps tendon left knee. This is postoperative day #1. Patient is seen and evaluated at bedside with Dr. Vincenzo Lara. Patient states that her pain is well controlled. Patient denies any new complaints today. Patient denies any fever/chills, numbness, weakness, tingling, abdominal pain, shortness of breath or chest pain. Objective - Vital Signs Vital signs: Vital Signs Temp 97.8 F 09/10/18 05:00 Pulse 71 09/10/18 05:00 Resp 20 09/10/18 05:00 BP 145/64 09/10/18 05:00 Pulse Ox 93 L 09/09/18 21:53 Intake & Output 09/09/18 09/10/18 09/10/18 18:59 06:59 18:59 Intake Total 400 300 Output Total 25 Balance 375 300 Intake: IV 400 Oral 300 Output: Estimated Blood Loss 25 Other: # Voids 1 - Exam Vital signs are stable. Patient is in no acute distress and is alert and oriented 3. Calf is soft and nontender to palpation. Dressing is clean, dry, and intact. Patient has full foot and ankle motion without pain or difficulty. Neurovascular status and circulatory status are intact. - Labs Labs: Abnormal Lab Results - Last 24 Hours (Table) 09/09/18 09/09/18 09/10/18 Range/Units 17:08 20:33 07:28 POC Glucose (mg/dL) 158 H 170 H 110 H (75-99) mg/dL Assessment and Plan (1) Quadriceps tendon rupture Current Visit: Yes Status: Acute Code(s): S76.119A - STRAIN OF UNSP QUADRICEPS MUSCLE, FASCIA AND TENDON, INIT SNOMED Code(s): 9550953 (2) S/P tendon repair Current Visit: Yes Status: Acute Code(s): Z98.890 - OTHER SPECIFIED POSTPROCEDURAL STATES SNOMED Code(s): 449886300 Plan: 1. Patient is to be weightbearing as tolerated with knee immobilizer. 2. Leave dressing in place for 10 days. Patient may shower with dressing in place. 3. Continue routine postoperative care and pain control. 4. Appreciate input from medicine. 5. Anticipate discharge home tomorrow.
[2018-09-10] MEDS ORDERED: ASCORBIC ACID 500 MG TAB PO SCH (09:00)
[2018-09-10] MEDS ORDERED: ASPIRIN 81 MG PO SCH (09:00)
[2018-09-10 09:41] LABS: Basophils % (A) 0 %; Eosinophils % (A) 1 %; HCT 34.8 % (34.0-46.0); HGB 10.7 gm/dL (11.4-16.0); Hypochromasia Slight; Lymphocytes # (A) 0.8 k/uL (1.0-4.8); Lymphocytes % (A) 11 %; MCH 28.7 pg (25.0-35.0); MCHC 30.7 g/dL (31.0-37.0); MCV 93.5 fL (80.0-100.0); Mean Platelet Volume 7.2; Monocytes # (A) 0.4 k/uL (0-1.0); Monocytes % (A) 5 %; Neutrophils # (A) 5.6 k/uL (1.3-7.7); Neutrophils % (A) 82 %; Platelet Count 289 k/uL (150-450); RBC 3.73 m/uL (3.80-5.40); RDW 15.9 % (11.5-15.5); WBC 6.8 k/uL (3.8-10.6)
[2018-09-10 12:12] LABS: Glucose,Whole Blood 94 mg/dL (75-99)
--- NOTE | 2018-09-10 14:45 | P.PN ---
Subjective Progress Note Date: 09/10/18 72-year-old female one of Dr. Frazier's patient who was hospitalized on July 21 for left total knee arthroplasty which was done successfully with no complication, patient was doing physical therapy and done well first 2 weeks then developed to have severe discomfort not been able to lift her leg up and not been able to participate in any physical therapy. Patient was seen Dr. Lara with his exam decided that she might have tear of the patellar retinaculum with rupture of the quadriceps tendon. Patient wrote to the hospital today 09/09/2018 and and had repair of the patellar retinaculum and quadriceps tendon repair. Was admitted to the floor was slightly bit drowsy from anesthesia, was kept on O2 fluid resuscitation and watch her pulse oximetry has improved within an hour doing well she is still laying in bed able to interact quite bed. 09/10: Patient has been afebrile, heart rate in the 70s, blood pressure 164/84, pulse ox 96% on room air. White count is 6.8, hemoglobin 10.7. Blood sugars running between 90 [birth year]/21/1969. Patient states that her pain is currently controlled. Patient has been working with physical therapy with recommendations for home with homecare. assistant manager has made arrangements for home care and discharge plan is for her to return home as likely tomorrow with home care. Review of Systems CONSTITUTIONAL: Well-developed no acute respiratory distress. EYES: No icterus sclerae, no conjunctivitis. EARS, NOSE, MOUTH, THROAT, and FACE: No sore throat, lymphadenopathy, carotid bruits or deformity. RESPIRATORY: No SOB cough or wheezes. CARDIOVASCULAR: No CP, Palpitation, PND, Orthopnea, or angina. GASTROINTESTINAL: No Abd pain, Nausea or vomiting, no Diarrhea or constipation, No GI Bleed, no distention or masses. GENITOURINARY: Negative for Hematuria or UTI, no kidney stones. INTEGUMENT/BREAST: Negative for any muscular injury with mild osteoarthritis.. HEMATOLOGIC/LYMPHATIC: Negative for bleed or purpura. MUSCULOSKELTAL: positive pain and discomfort of the left knee NEURLOGICAL: No LOC, Sz or syncope, blurred vision dizziness or abnormality.. BEHAVIORAL/PSYCH: Negative. ENDOCRINE: Negative. Objective - Vital Signs Vital signs: Vital Signs Temp 97.8 F 09/10/18 05:00 Pulse 71 09/10/18 05:00 Resp 20 09/10/18 08:00 BP 145/64 09/10/18 05:00 Pulse Ox 93 L 09/09/18 21:53 Intake & Output 09/09/18 09/10/18 09/10/18 18:59 06:59 18:59 Intake Total 400 300 Output Total 25 Balance 375 300 Intake: IV 400 Oral 300 Output: Estimated Blood Loss 25 Other: Voiding Method Bedside Commode # Voids 1 - Exam General Appearance: Alert, cooperative, no distress, appears stated age. Neck HEENT: Supple, no lymphadenopathy, no thyroid enlargement, no carotid bruits. Lungs: decreased breath some bilaterally with fine rhonchi no crackles positive mild expiratory wheezes. Chest Wall: decrease expansion with deep inspiration no tenderness and no deformity was found on exam, no costochondral pain or discomfort. Heart: Regular rate and rhythm, S1, S2 normal, no murmur, rub or gallop. Back: Symmetric, no curvature, ROM normal, no CVA tenderness. Abdomen: Soft, non-tender, bowel sounds active all four quadrants, no masses, no organomegaly. Extremities: incision the left side looks fine with no hematoma no bleeding. Knee immobilizer in place, able to wiggle her toes, pulse is palpable. Pulses: 2+ and symmetric. Skin: Skin color, texture, tugor normal, no rashes or lesions. Neurologic: Alert oriented x3 cranial nerves II through XII intact, no motor deficit, no abnormal balance or gait. - Labs CBC & Chem 7: 09/10/18 08:57 Labs: Abnormal Lab Results - Last 24 Hours (Table) 09/09/18 09/09/18 09/10/18 Range/Units 17:08 20:33 07:28 RBC (3.80-5.40) m/uL Hgb (11.4-16.0) gm/dL MCHC (31.0-37.0) g/dL RDW (11.5-15.5) % Lymphocytes # (1.0-4.8) k/uL POC Glucose (mg/dL) 158 H 170 H 110 H (75-99) mg/dL 09/10/18 Range/Units 08:57 RBC 3.73 L (3.80-5.40) m/uL Hgb 10.7 L (11.4-16.0) gm/dL MCHC 30.7 L (31.0-37.0) g/dL RDW 15.9 H (11.5-15.5) % Lymphocytes # 0.8 L (1.0-4.8) k/uL POC Glucose (mg/dL) (75-99) mg/dL Assessment and Plan Plan: 1 post left knee patellar tear repair: Patient is doing very well surgery resume home meds continue to watch patient hemodynamic status. 2 type 2 diabetes: Remain on Levemir 23 units daily at bedtime and Humalog 7 units before meals meals still on Accu-Chek with sliding scales coverage as well. 3 COPD: Continue patient on Ventolin HFA updraft treatment and Brio inhaler. 4 atherosclerotic heart disease: Stable on losartan and Coreg. Hyperlipidemia: Continue fenofibrate 54 mg daily not able to tolerate statin well still on red yeast rice. 6 hypertension: Remain on losartan 50 mg a day and Coreg 25 mg twice a day. 7 pain management: Remain on hydrocodone orally doing well. 8 GI prophylaxis: Remain on Pepcid 20 mg daily. 9 DVT prophylaxis: Post knee surgery patient still on aspirin per orthopedic protocol. CODE STATUS: Full code. Discharge plan: Home with [facility] tomorrow Impression and plan of care have been directed as dictated by the signing physician. Annie Ba nurse practitioner acting as scribe for signing physician.
[2018-09-10 17:24] LABS: Glucose,Whole Blood 63 mg/dL (75-99)
[2018-09-10 17:42] LABS: Glucose,Whole Blood 69 mg/dL (75-99)
[2018-09-10 18:03] LABS: Glucose,Whole Blood 98 mg/dL (75-99)
[2018-09-10 20:14] LABS: Glucose,Whole Blood 108 mg/dL (75-99)
[2018-09-10] MEDS: SENNOSIDES-DOCUSATE SODIUM 1 EACH TAB PO SCH (20:35)
[2018-09-10] MEDS: INSULIN DETEMIR (LEVEMIR) 100 UNIT/ML SYR SQ SCH (20:37)
[2018-09-10 21:26] VITALS: RESP 20
[2018-09-11 05:32] VITALS: BP 146/73; PULSE 68; TEMP 97.7
[2018-09-11 07:27] LABS: Glucose,Whole Blood 110 mg/dL (75-99)
[2018-09-11] MEDS: INSULIN ASPART (NovoLOG) 100 UNIT/ML VIAL SQ SCH ×2 (08:03→08:38)
[2018-09-11] MEDS: LOSARTAN 50 MG TAB PO SCH (08:37)
[2018-09-11] MEDS: ASPIRIN 325 MG TAB PO SCH (08:37)
[2018-09-11] MEDS: MELOXICAM 7.5 MG TAB PO SCH (08:37)
[2018-09-11] MEDS: FENOFIBRATE 54 MG TAB PO SCH (08:37)
[2018-09-11] MEDS: CARVEDILOL 12.5 MG TAB PO SCH (08:37)
[2018-09-11] MEDS: HYDROcodone/APAP 5-325MG 1 EACH TAB PO PRN (08:38)
[2018-09-11] MEDS: NON-FORMULARY DRUG (Ubidecarenone [Co Q-10] 200 MG) PO SCH (08:41)
--- NOTE | 2018-09-11 09:10 | P.DS ---
Providers Expected date of discharge: 09/11/18 Attending physician: Vincenzo Lara Consults: 09/09/18 11:36 Consult Physician Routine Consulting Provider: Pastora Frazier Consult Reason/Comments: medical management Do you want consulting provider notified?: Yes Primary care physician: Pastora Frazier - Discharge Diagnosis(es) (1) Quadriceps tendon rupture Current Visit: Yes Status: Acute (2) S/P tendon repair Current Visit: Yes Status: Acute Hospital Course: This is a 73-year-old female who is status post left total knee arthroplasty on 08/05/2018. The patient presented for evaluation as an outpatient and was found to have difficulty with active extension of the left knee along with a noticeable defect just superior to the patella. After discussion and consideration patient elects to proceed with repair of the patellar retinaculum, left knee. The patient is seen preoperatively by Dr. Lara. Patient is admitted to [facility] on 09/09/2018 and underwent repair of the quadriceps tendon of the left knee. The procedures performed without complication or sequelae. The patient is doing well postoperatively. Labs and vital signs are stable on day of discharge. On day of discharge patient's knee incision is healing well. There is minimal erythema. There is no drainage noted at this time. There is minimal soft tissue swelling to the knee. Patient has full foot and ankle motion without difficulty or pain. Calf is soft and nontender to palpation. Neurovascular status to the left lower extremity is intact. Patient is discharged home in good condition. Please see med rec for accurate list of home medications. Plan - Discharge Summary Discharge Rx Participant: No New Discharge Prescriptions: New Aspirin 325 mg PO BID #14 tab HYDROcodone/APAP 5-325MG [[place] 5-325] 1 - 2 tab PO Q6HR PRN #30 tab PRN Reason: Pain Sennosides [Senokot] 1 tab PO BID #60 tablet No Action ALPRAZolam [Xanax] 0.25 mg PO Q8HR PRN PRN Reason: Anxiety Insulin Detemir (Levemir) [Levemir] 23 unit SQ HS INSULIN LISPRO (humaLOG) [humaLOG] 7 units SQ AC-TID Ascorbic Acid [Vitamin C] 500 mg PO MOWEFR Fenofibrate [Lofibra] 54 mg PO DAILY Ubidecarenone [Co Q-10] 200 mg PO DAILY [place]-3 Fatty Acids/Fish Oil [Fish Oil 1,000 mg Softgel] 1 cap PO DAILY Losartan Potassium 50 mg PO QAM Fluticasone/Vilanterol [Breo Ellipta 200-25 Mcg INH] 1 inhalation INHALATION DAILY PRN PRN Reason: Shortness Of Breath Carvedilol 25 mg PO BID Cholecalciferol [Vitamin D3 (25 Mcg = 1000 Iu)] 2,000 mg PO DAILY Albuterol Inhaler [Ventolin Hfa Inhaler] 1 - 2 puff INHALATION Q6HR PRN PRN Reason: Shortness Of Breath Red Yeast Rice 600 mg PO DAILY Ipratropium-Albuterol Nebulize [Duoneb 0.5 mg-3 mg/3 ml Soln] 3 ml INHALATION QID PRN PRN Reason: sob Aspirin 81 mg PO DAILY #0 HYDROcodone/APAP 5-325MG [[place] 5-325] 1 - 2 tab PO Q6HR PRN PRN Reason: Pain Discharge Medication List ALPRAZolam [Xanax] 0.25 mg PO Q8HR PRN 10/05/17 [History] Ascorbic Acid [Vitamin C] 500 mg PO MOWEFR 10/05/17 [History] Carvedilol 25 mg PO BID 10/05/17 [History] Fenofibrate [Lofibra] 54 mg PO DAILY 10/05/17 [History] Fluticasone/Vilanterol [Breo Ellipta 200-25 Mcg INH] 1 inhalation INHALATION DAILY PRN 10/05/17 [History] INSULIN LISPRO (humaLOG) [humaLOG] 7 units SQ AC-TID 10/05/17 [History] Insulin Detemir (Levemir) [Levemir] 23 unit SQ HS 10/05/17 [History] Losartan Potassium 50 mg PO QAM 10/05/17 [History] [place]-3 Fatty Acids/Fish Oil [Fish Oil 1,000 mg Softgel] 1 cap PO DAILY 10/05/17 [History] Ubidecarenone [Co Q-10] 200 mg PO DAILY 10/05/17 [History] Albuterol Inhaler [Ventolin Hfa Inhaler] 1 - 2 puff INHALATION Q6HR PRN 07/24/18 [History] Cholecalciferol [Vitamin D3 (25 Mcg = 1000 Iu)] 2,000 mg PO DAILY 07/24/18 [History] Ipratropium-Albuterol Nebulize [Duoneb 0.5 mg-3 mg/3 ml Soln] 3 ml INHALATION QID PRN 07/24/18 [History] Red Yeast Rice 600 mg PO DAILY 07/24/18 [History] Aspirin 81 mg PO DAILY #0 08/06/18 [Rx] HYDROcodone/APAP 5-325MG [[place] 5-325] 1 - 2 tab PO Q6HR PRN 09/04/18 [History] Aspirin 325 mg PO BID #14 tab 09/11/18 [Rx] HYDROcodone/APAP 5-325MG [[place] 5-325] 1 - 2 tab PO Q6HR PRN #30 tab 09/11/18 [Rx] Sennosides [Senokot] 1 tab PO BID #60 tablet 09/11/18 [Rx] Follow up Appointment(s)/Referral(s): Vincenzo Lara DO [Doctor of Osteopathic Medicine] - 10 Days Activity/Diet/Wound Care/Special Instructions: Weightbearing as tolerated with a walker and knee immobilizer. Maintain knee immobilizer at all times except for hygiene. No CPM. Leave dressing intact. May be removed by home care nurse or by patient in 10 days. May shower with dressing on. Please follow up with [facility] and call with any questions or concerns, . Discharge Disposition: HOME WITH HOME HEALTH SERVICES
--- NOTE | 2018-09-12 13:39 | P.PN ---
Subjective Progress Note Date: 09/11/18 72-year-old female one of Dr. Frazier's patient who was hospitalized on July 21 for left total knee arthroplasty which was done successfully with no complication, patient was doing physical therapy and done well first 2 weeks then developed to have severe discomfort not been able to lift her leg up and not been able to participate in any physical therapy. Patient was seen Dr. Lara with his exam decided that she might have tear of the patellar retinaculum with rupture of the quadriceps tendon. Patient wrote to the hospital today 09/09/2018 and and had repair of the patellar retinaculum and quadriceps tendon repair. Was admitted to the floor was slightly bit drowsy from anesthesia, was kept on O2 fluid resuscitation and watch her pulse oximetry has improved within an hour doing well she is still laying in bed able to interact quite bed. 09/10: Patient has been afebrile, heart rate in the 70s, blood pressure 164/84, pulse ox 96% on room air. White count is 6.8, hemoglobin 10.7. Blood sugars running between 90 07/21/1969. Patient states that her pain is currently controlled. Patient has been working with physical therapy with recommendations for home with homecare. [employer] has made arrangements for home care and discharge plan is for her to return home as likely tomorrow with home care. 09/11: Patient denies any new complaints. She states she is ready for to go home today. She has been working with physical therapy. She has been afebrile. No nausea or vomiting. Medication reconciliation reviewed. Patient is being discharged today in stable condition. Review of Systems CONSTITUTIONAL: Well-developed no acute respiratory distress. Denies fever, denies chills. EYES: No icterus sclerae, no conjunctivitis. EARS, NOSE, MOUTH, THROAT, and FACE: No sore throat, lymphadenopathy, carotid bruits or deformity. RESPIRATORY: No SOB cough or wheezes. CARDIOVASCULAR: No CP, Palpitation, PND, Orthopnea, or angina. GASTROINTESTINAL: No Abd pain, Nausea or vomiting, no Diarrhea or constipation, No GI Bleed, no distention or masses. GENITOURINARY: Negative for Hematuria or UTI, no kidney stones. INTEGUMENT/BREAST: Negative for any muscular injury with mild osteoarthritis.. HEMATOLOGIC/LYMPHATIC: Negative for bleed or purpura. MUSCULOSKELTAL: positive pain and discomfort of the left knee NEURLOGICAL: No LOC, Sz or syncope, blurred vision dizziness or abnormality.. BEHAVIORAL/PSYCH: Negative. ENDOCRINE: Negative. Objective - Vital Signs Vital signs: Vital Signs Temp 97.7 F 09/11/18 05:00 Pulse 68 09/11/18 05:00 Resp 20 09/11/18 05:00 BP 146/73 09/11/18 05:00 Pulse Ox 95 09/11/18 05:00 Intake & Output 09/10/18 09/11/18 09/11/18 18:59 06:59 18:59 Intake Total 750 300 Balance 750 300 Intake: Oral 750 300 Other: Voiding Method Bedside Commode # Voids 3 1 - Exam General Appearance: Alert, cooperative, no distress, appears stated age. Neck HEENT: Supple, no lymphadenopathy, no thyroid enlargement, no carotid bruits. Lungs: decreased breath some bilaterally with fine rhonchi no crackles positive mild expiratory wheezes. Chest Wall: decrease expansion with deep inspiration no tenderness and no deformity was found on exam, no costochondral pain or discomfort. Heart: Regular rate and rhythm, S1, S2 normal, no murmur, rub or gallop. Back: Symmetric, no curvature, ROM normal, no CVA tenderness. Abdomen: Soft, non-tender, bowel sounds active all four quadrants, no masses, no organomegaly. Extremities: Knee immobilizer in place, able to wiggle her toes, pulse is palpable. Pulses: 2+ and symmetric. Skin: Skin color, texture, tugor normal, no rashes or lesions. Neurologic: Alert oriented x3 cranial nerves II through XII intact, no motor deficit, no abnormal balance or gait. - Labs CBC & Chem 7: 09/10/18 08:57 Labs: Abnormal Lab Results - Last 24 Hours (Table) 09/10/18 09/10/18 09/10/18 Range/Units 08:57 17:22 17:41 RBC 3.73 L (3.80-5.40) m/uL Hgb 10.7 L (11.4-16.0) gm/dL MCHC 30.7 L (31.0-37.0) g/dL RDW 15.9 H (11.5-15.5) % Lymphocytes # 0.8 L (1.0-4.8) k/uL POC Glucose (mg/dL) 63 L 69 L (75-99) mg/dL 09/10/18 09/11/18 Range/Units 20:12 07:20 RBC (3.80-5.40) m/uL Hgb (11.4-16.0) gm/dL MCHC (31.0-37.0) g/dL RDW (11.5-15.5) % Lymphocytes # (1.0-4.8) k/uL POC Glucose (mg/dL) 108 H 110 H (75-99) mg/dL Assessment and Plan Plan: 1 post left knee patellar tear repair: Patient is doing very well surgery resume home meds continue to watch patient hemodynamic status. 2 type 2 diabetes: Remain on Levemir 23 units daily at bedtime and Humalog 7 units before meals meals still on Accu-Chek with sliding scales coverage as well. 3 COPD: Continue patient on Ventolin HFA updraft treatment and Brio inhaler. 4 atherosclerotic heart disease: Stable on losartan and Coreg. Hyperlipidemia: Continue fenofibrate 54 mg daily not able to tolerate statin well still on red yeast rice. 6 hypertension: Remain on losartan 50 mg a day and Coreg 25 mg twice a day. 7 pain management: Remain on hydrocodone orally doing well. 8 GI prophylaxis: Remain on Pepcid 20 mg daily. 9 DVT prophylaxis: Post knee surgery patient still on aspirin per orthopedic protocol. CODE STATUS: Full code. Discharge plan: Home with [facility] care Impression and plan of care have been directed as dictated by the signing physician. Annie Ba nurse practitioner acting as scribe for signing physician.
== END 2018-09-11 11:09 | disposition home health service (06) ==
LOC: OR 09:50 → EDSTATUS 11:35 → 4MS4W 13:08 → OR 09-11 11:09
PROVIDERS: ATTEND Orthopaedic Surgery
DX: S76.112A Strain of left quadriceps muscle, fascia and tendon, initial encounter (principal); X58.XXXA Exposure to other specified factors, initial encounter; Z96.652 Presence of left artificial knee joint; I10 Essential (primary) hypertension; E78.5 Hyperlipidemia, unspecified; E11.9 Type 2 diabetes mellitus without complications; Z79.4 Long term (current) use of insulin; Z87.891 Personal history of nicotine dependence; J44.9 Chronic obstructive pulmonary disease, unspecified; I25.10 Atherosclerotic heart disease of native coronary artery without angina pectoris; F41.9 Anxiety disorder, unspecified; Z87.01 Personal history of pneumonia (recurrent); N39.0 Urinary tract infection, site not specified; Z90.49 Acquired absence of other specified parts of digestive tract; Z80.1 Family history of malignant neoplasm of trachea, bronchus and lung; Z80.6 Family history of leukemia; Z79.899 Other long term (current) drug therapy; Z79.82 Long term (current) use of aspirin; Z79.51 Long term (current) use of inhaled steroids
CPT/HCPCS: 94640 ×2; 97163; 85025; 27385; J2250; J1100; J2405; J3010; J2370; J2704; J1170; J0690 ×2

== ENCOUNTER 2018-09-25 10:23 | Inpatient (IN) | payer MEDICARE ==
[2018-09-25] MEDS ORDERED: MAGNESIUM HYDROXIDE 2,400 MG/10 ML CUP PO PRN (10:34)
[2018-09-25] MEDS ORDERED: NA PHOS,M-B/NA PHOS,DI-BA 133 ML ENEMA RECTAL PRN (10:34)
[2018-09-25] MEDS ORDERED: HYDROmorphone 0.5 MG/0.5 ML SYRINGE IVP PRN ×2 (10:34)
[2018-09-25] MEDS ORDERED: ONDANSETRON 4 MG/2 ML VIAL IVP PRN (10:34)
[2018-09-25] MEDS ORDERED: BISACODYL 10 MG SUPP RECTAL PRN (10:34)
[2018-09-25] MEDS ORDERED: NALOXONE 0.4 MG/ML 1 ML VIAL IV PRN (10:34)
[2018-09-25] MEDS ORDERED: HYDROcodone/APAP 7.5-325MG 1 EACH TAB PO PRN (10:41)
[2018-09-25 14:45] LABS: Anisocytosis Slight; Basophils % (A) 0 %; Eosinophils % (A) 0 %; HCT 40.6 % (34.0-46.0); Hypochromasia Marked; Lymphocytes # (A) 1.1 k/uL (1.0-4.8); Lymphocytes % (A) 20 %; MCH 28.5 pg (25.0-35.0); MCHC 29.6 g/dL (31.0-37.0); MCV 96.3 fL (80.0-100.0); Mean Platelet Volume 7.3; Monocytes # (A) 0.3 k/uL (0-1.0); Monocytes % (A) 6 %; Neutrophils # (A) 3.9 k/uL (1.3-7.7); Neutrophils % (A) 72 %; Platelet Count 250 k/uL (150-450); RBC 4.22 m/uL (3.80-5.40); RDW 16.1 % (11.5-15.5); WBC 5.5 k/uL (3.8-10.6)
[2018-09-25 15:01] LABS: Albumin 3.4 g/dL (3.5-5.0); Calcium 9.8 mg/dL (8.4-10.2); Potassium 4.4 mmol/L (3.5-5.1); Prothrombin Time 10.3 sec (9.0-12.0); Total Bilirubin 0.6 mg/dL (0.2-1.3); Total Protein 6.9 g/dL (6.3-8.2)
[2018-09-25] MEDS: SODIUM CHLORIDE 0.9% 1,000 ML IV SCH (15:37)
[2018-09-25] MEDS ORDERED: ALPRAZolam 0.25 MG TAB PO PRN (15:43)
[2018-09-25] MEDS: HYDROmorphone 0.5 MG/0.5 ML SYRINGE IVP PRN ×2 (15:51→19:43)
[2018-09-25 16:53] LABS: Glucose,Whole Blood 100 mg/dL (75-99)
[2018-09-25] MEDS: CARVEDILOL 12.5 MG TAB PO SCH (17:44)
[2018-09-25] MEDS: HYDROcodone/APAP 7.5-325MG 1 EACH TAB PO PRN (17:46)
[2018-09-25] MEDS: SENNOSIDES-DOCUSATE SODIUM 1 EACH TAB PO SCH (19:44)
[2018-09-25 20:18] LABS: Glucose,Whole Blood 183 mg/dL (75-99)
[2018-09-25] MEDS ORDERED: INSULIN DETEMIR (LEVEMIR) 100 UNIT/ML SYR SQ SCH (21:00)
--- NOTE | 2018-09-25 23:17 | P.CONS ---
History of Present Illness - Reason for Consult Consult date: 09/25/18 - Chief Complaint Left knee ulcer - History of Present Illness 73-year-old female with history of multiple medical troubles including oxygen dependent COPD, ongoing tobacco use and significant degenerative disease of her left knee. 07/21/2018 she was hospitalized for a left total knee arthroplasty. Surgery went well and she had no great difficulties. However after several weeks despite physical therapy she was having increasing difficulties moving and lifting her leg. By 09/09/2018 she is having great difficulties with the leg and had been evaluated by orthopedics and was brought in the hospital for evaluation of the knee. There was evidence of a patellar right tenaculum rupture and quadriceps tendon rupture. These are surgically corrected and she was doing relatively well. However she started to develop some discoloration to the anterior aspect of the knee. She was seen by the home care nurse and then evaluated by her surgeon. Because of the marked abnormality she was brought in the hospital. The now plans for potential surgical incision and drainage to the site. With concerns to remove the consult was requested. She is denying stomach and fevers, chills or rigors but does feel poorly overall. Review of Systems HEENT:Denies headache or acute visual change. Denies sinus or mouth discomforts. Denies neck stiffness or pain. Denies significant oral cavity pain. Denies difficulty on swallowing. Lungs: Chronic shortness of breath, chronic cough no hemoptysis Cardiovascular: Chronic shortness of breath but denies chest pain has dyspnea on exertion which is not acutely worsened no syncope Gastrointestinal:Denies nausea, vomiting, diarrhea, constipation, hematemesis, melena, hematochezia. No no significant change of bowel habit noticed. Musculoskeletal: Ongoing pain to the left knee, has some generalized joint compl aints Skin: New ulcer left knee Neuro: Denies headache or visual change. Denies any new onset weakness or difficulty with ambulation. Denies falls or seizures. Psychiatric: Chronic anxiety Endocrine: Chronic fatigue and has had further weight loss Past Medical History Past Medical History: COPD, Diabetes Mellitus, Hyperlipidemia, Hypertension, Pneumonia Additional Past Medical History / Comment(s): currently being treated for UTI History of Any Multi-Drug Resistant Organisms: None Reported Past Surgical History: Bowel Resection, Hysterectomy, Joint Replacement, Orthopedic Surgery Additional Past Surgical History / Comment(s): colon resection with ileostomy/later reversal, surgery for fx left femur, left knee replacement 07/2018, Past Anesthesia/Blood Transfusion Reactions: No Reported Reaction Past Psychological History: No Psychological Hx Reported Additional Psychological History / Comment(s): . Retired. No recent international travel. No animals in the home. Family in the past owned the [employer] Smoking Status: Former smoker Past Alcohol Use History: None Reported Additional Past Alcohol Use History / Comment(s): 2 PPD for 56 years, quit smoking 05/2018 Past Drug Use History: None Reported - Past Family History Mother Additional Family Medical History / Comment(s): heart problems Father Family Medical History: Cancer Additional Family Medical History / Comment(s): lung Sister(s) Family Medical History: Cancer Additional Family Medical History / Comment(s): leukemia Medications and Allergies Home Medications and Allergies Comment(s): Current Medications Hydrocodone Bitart/Acetaminophen ([place] 7.5-325) 1 each PO Q6H PRN PRN Reason: Pain Scale 1 to 5 Hydrocodone Bitart/Acetaminophen ([place] 7.5-325) 2 each PO Q6H PRN PRN Reason: Pain Scale 6 to 10 Last Admin: 09/25/18 17:46 Dose: 2 each Documented by: Alprazolam (Xanax) 0.25 mg PO Q8HR PRN PRN Reason: Anxiety Ascorbic Acid (Vitamin C) 500 mg PO MOWEFR [facility] Aspirin (Aspirin) 81 mg PO DAILY [facility] Bisacodyl (Dulcolax) 10 mg RECTAL DAILY PRN PRN Reason: Constipation Carvedilol (Coreg) 25 mg PO AC-BID [facility] Last Admin: 09/25/18 17:44 Dose: 25 mg Documented by: Cholecalciferol (Vitamin D3 (25 Mcg = 1000 Iu)) 2,000 unit PO DAILY [facility] Fenofibrate (Lofibra) 54 mg PO DAILY [facility] Hydromorphone HCl (Dilaudid) 0.125 mg IVP Q3HR PRN PRN Reason: Pain Scale 1 to 3 Hydromorphone HCl (Dilaudid) 0.25 mg IVP Q3HR PRN PRN Reason: Pain Scale 4 to 6 Hydromorphone HCl (Dilaudid) 0.5 mg IVP Q3HR PRN PRN Reason: Pain Scale 7 to 10 Last Admin: 09/25/18 19:43 Dose: 0.5 mg Documented by: Sodium Chloride (Saline 0.9%) 1,000 mls @ 65 mls/hr IV .[id number] [facility] Last Admin: 09/25/18 15:37 Dose: 65 mls/hr Documented by: Cefazolin Sodium 1,000 mg/ (Sodium Chloride) 50 mls @ 100 mls/hr IVPB Q8HR [facility] Last Admin: 09/25/18 15:37 Dose: 100 mls/hr Documented by: Insulin Detemir (Levemir) 23 unit SQ [facility] Last Admin: 09/25/18 19:44 Dose: 23 unit Documented by: Losartan Potassium (Cozaar) 50 mg PO QAM [facility] Magnesium Hydroxide (Milk Of Magnesia) 2,400 mg PO DAILY PRN PRN Reason: Constipation Naloxone HCl (Narcan) 0.2 mg IV Q2M PRN PRN Reason: Opioid Reversal Ondansetron HCl (Zofran) 4 mg IVP Q8HR PRN PRN Reason: Nausea And Vomiting Senna/Docusate Sodium (Senokot-S) 2 each PO [facility] Last Admin: 09/25/18 19:44 Dose: 2 each Documented by: Sodium Biphosphate/Sodium Phosphate (Fleet Adult) 133 ml RECTAL DAILY PRN PRN Reason: Constipation Home Medications Medication Instructions Recorded Confirmed Type ALPRAZolam [Xanax] 0.25 mg PO Q8HR PRN 10/05/17 09/25/18 History Ascorbic Acid [Vitamin C] 500 mg PO MOWEFR 10/05/17 09/25/18 History Carvedilol 25 mg PO BID 10/05/17 09/25/18 History Fenofibrate [Lofibra] 54 mg PO DAILY 10/05/17 09/25/18 History Fluticasone/Vilanterol [Breo 1 inhalation INHALATION DAILY PRN 10/05/17 09/25/18 History Ellipta 200-25 Mcg INH] INSULIN LISPRO (humaLOG) [humaLOG] 7 units SQ AC-TID 10/05/17 09/25/18 History Insulin Detemir (Levemir) [Levemir] 23 unit SQ HS 10/05/17 09/25/18 History Losartan Potassium 50 mg PO QAM 10/05/17 09/25/18 History [place]-3 Fatty Acids/Fish Oil [Fish 1 cap PO DAILY 10/05/17 09/25/18 History Oil 1,000 mg Softgel] Ubidecarenone [Co Q-10] 200 mg PO DAILY 10/05/17 09/25/18 History Albuterol Inhaler [Ventolin Hfa 1 - 2 puff INHALATION Q6HR PRN 07/24/18 09/25/18 History Inhaler] Cholecalciferol [Vitamin D3 (25 2,000 mg PO DAILY 07/24/18 09/25/18 History Mcg = 1000 Iu)] Ipratropium-Albuterol Nebulize 3 ml INHALATION RT-QID PRN 07/24/18 09/25/18 History [Duoneb 0.5 mg-3 mg/3 ml Soln] Red Yeast Rice 600 mg PO DAILY 07/24/18 09/25/18 History Aspirin 325 mg PO BID #14 tab 09/11/18 09/25/18 Rx HYDROcodone/APAP 5-325MG [[place] 1 - 2 tab PO Q6HR PRN #30 tab 09/11/18 09/25/18 Rx 5-325] Sennosides [Senokot] 1 tab PO BID #60 tablet 09/11/18 09/25/18 Rx Cephalexin [Keflex] 500 mg PO QID 09/25/18 09/25/18 History Allergies Allergy/AdvReac Type Severity Reaction Status Date / Time No Known Allergies Allergy Verified 09/25/18 13:59 Physical Exam Vitals: Vital Signs Temp Resp BP 09/25/18 13:27 98.1 F 16 134/65 Intake and Output 09/25/18 09/25/18 09/26/18 14:59 22:59 06:59 Other: Voiding Method Toilet Diaper Incontinent # Bowel Movements 0 Weight 0 g HEENT: Anicteric conjunctiva are pink and moist nasal mucosa grossly intact without significant lesions, there is no thrush. Neck: The neck is supple without significant lymphadenopathy or thyromegaly. Lungs: There is symmetrical bilateral air entry. There is no significant bronchial sounds. There is no egophony or dullness. Heart: Irregular with an audible S1 and S2 soft S4 no distinct murmur click or rub PMI was nondisplaced Abdomen: Positive bowel sounds soft and nontender without palpable masses or organomegaly. There was no guarding or rebound. Extremities: The upper extremities have excellent pulses they are symmetric, no significant petechiae or telangiectasia. No splinter hemorrhages were noted. Right lower extremity without acute lesion. Left lower extremity shows of the recent surgical intervention. Is evidence of significant eschar on the surgical incision site especially over the knee itself. Measuring approximately 3 x 2.5. There is no drainage. The knee is not fluctuant. It is quite tender to any manipulation. Neuro: Awake alert oriented to person place and time. There are no acute new gross focal sensory motor deficits. Results CBC & Chem 7: 09/25/18 14:09/25/18 14: Labs: Abnormal Lab Results - Last 24 Hours (Table) 09/25/18 09/25/18 09/25/18 Range/Units 14: 14: 16:50 MCHC 29.6 L (31.0-37.0) g/dL RDW 16.1 H (11.5-15.5) % Chloride 114 H (98-107) mmol/L Carbon Dioxide 19 L (22-30) mmol/L BUN 34 H (7-17) mg/dL Creatinine 1.73 H (0.52-1.04) mg/dL Glucose 100 H (74-99) mg/dL POC Glucose (mg/dL) 100 H (75-99) mg/dL ALT 6 L (9-52) U/L Albumin 3.4 L (3.5-5.0) g/dL 09/25/18 Range/Units 19:52 MCHC (31.0-37.0) g/dL RDW (11.5-15.5) % Chloride (98-107) mmol/L Carbon Dioxide (22-30) mmol/L BUN (7-17) mg/dL Creatinine (0.52-1.04) mg/dL Glucose (74-99) mg/dL POC Glucose (mg/dL) 183 H (75-99) mg/dL ALT (9-52) U/L Albumin (3.5-5.0) g/dL Microbiology - Last 24 Hours (Table) 09/25/18 14:50 Anaerobic Culture - Preliminary Knee - Left 09/25/18 14:50 Wound Culture - Preliminary Knee - Left Laboratory Results WBC 5.5 k/uL (3.8-10.6) 09/25/18 14:01 RBC 4.22 m/uL (3.80-5.40) 09/25/18 14:01 Hgb 12.0 gm/dL (11.4-16.0) 09/25/18 14:01 Hct 40.6 % (34.0-46.0) 09/25/18 14:01 MCV 96.3 fL (80.0-100.0) 09/25/18 14:01 MCH 28.5 pg (25.0-35.0) 09/25/18 14:01 MCHC 29.6 g/dL (31.0-37.0) L 09/25/18 14:01 RDW 16.1 % (11.5-15.5) H 09/25/18 14:01 Plt Count 250 k/uL (150-450) 09/25/18 14:01 Neutrophils % 72 % 09/25/18 14:01 Lymphocytes % 20 % 09/25/18 14:01 Monocytes % 6 % 09/25/18 14:01 Eosinophils % 0 % 09/25/18 14:01 Basophils % 0 % 09/25/18 14:01 Neutrophils # 3.9 k/uL (1.3-7.7) 09/25/18 14:01 Lymphocytes # 1.1 k/uL (1.0-4.8) 09/25/18 14:01 Monocytes # 0.3 k/uL (0-1.0) 09/25/18 14:01 Eosinophils # 0.0 k/uL (0-0.7) 09/25/18 14:01 Basophils # 0.0 k/uL (0-0.2) 09/25/18 14:01 Hypochromasia Marked 09/25/18 14:01 Anisocytosis Slight 09/25/18 14:01 PT 10.3 sec (9.0-12.0) 09/25/18 14:01 INR 1.0 (<1.2) 09/25/18 14:01 Sodium 142 mmol/L (137-145) 09/25/18 14:01 Potassium 4.4 mmol/L (3.5-5.1) 09/25/18 14:01 Chloride 114 mmol/L (98-107) H 09/25/18 14:01 Carbon Dioxide 19 mmol/L (22-30) L 09/25/18 14:01 Anion Gap 9 mmol/L 09/25/18 14:01 BUN 34 mg/dL (7-17) H 09/25/18 14:01 Creatinine 1.73 mg/dL (0.52-1.04) H 09/25/18 14:01 Est GFR (CKD-EPI)AfAm 33 (>60 ml/min/1.73 sqM) 09/25/18 14:01 Est GFR (CKD-EPI)NonAf 29 (>60 ml/min/1.73 sqM) 09/25/18 14:01 Glucose 100 mg/dL (74-99) H 09/25/18 14:01 POC Glucose (mg/dL) 183 mg/dL (75-99) H 09/25/18 19:52 POC Glu Trekking Guide ID Serina Olmedo 09/25/18 19:52 Calcium 9.8 mg/dL (8.4-10.2) 09/25/18 14:01 Total Bilirubin 0.6 mg/dL (0.2-1.3) 09/25/18 14:01 AST 21 U/L (14-36) 09/25/18 14:01 ALT 6 U/L (9-52) L 09/25/18 14:01 Alkaline Phosphatase 86 U/L (38-126) 09/25/18 14:01 Total Protein 6.9 g/dL (6.3-8.2) 09/25/18 14:01 Albumin 3.4 g/dL (3.5-5.0) L 09/25/18 14:01 Microbiology 09/25/18 14:50 Knee - Left Anaerobic Culture - Preliminary 09/25/18 14:50 Knee - Left Wound Culture - Preliminary Assessment and Plan (1) Acute exacerbation of chronic obstructive airways disease Current Visit: No Status: Acute Code(s): J44.1 - CHRONIC OBSTRUCTIVE PULMONARY DISEASE W (ACUTE) EXACERBATION SNOMED Code(s): 380484716 (2) Diabetes mellitus Current Visit: No Status: Acute Code(s): E11.9 - TYPE 2 DIABETES MELLITUS WITHOUT COMPLICATIONS SNOMED Code(s): 87284317 (3) Status post left knee replacement Current Visit: No Status: Acute Code(s): Z96.652 - PRESENCE OF LEFT ARTIFICIAL KNEE JOINT SNOMED Code(s): 4208247719697 (4) Ulcer of left knee Narrative/Plan: 73-year-old female with multiple medical troubles including oxygen dependent COPD presents to Hospital worsening of the wound to the left total knee arthroplasty site. It is noted she has degenerative joint disease of the left total knee arthroplasty was performed. The postoperative timeframe she difficulties with disruption of the patellar retinaculum as well as the quadriceps tendon rupture. This was surgically repaired and she was having some improvement. However Lindsey is evidence of the ulceration which is an eschar over the anterior aspect of the knee. It appears surgical debridement is planned. As for further direct with the next steps can be. Antibiotic therapy with Ancef was added. Concern will be that there will be exposed hardware directly underneath this eschar. If this is occurring she will need evaluation of her vascular status, significant peripheral vascular disease is likely occurring resulting in this nonhealing wound and ulceration. Smoking cessation is discussed. She this point in time does not have high-grade fevers, chills or rigors. Her chronic kidney disease is stable and her last hemoglobin A1c was 5.9 continue with good diabetes care and high-protein diet. Antibiotic and wound care direction postoperatively once the extent of the difficulty is clarified. Current Visit: Yes Status: Acute Code(s): L97.829 - NON-PRESSURE CHRONIC ULCER OTH PRT L LOW LEG W UNSP SEVERITY SNOMED Code(s): 591503925
[2018-09-26] MEDS: SODIUM CHLORIDE 0.9% 1,000 ML IV SCH ×2 (03:23→16:56)
[2018-09-26 07:08] LABS: Glucose,Whole Blood 52 mg/dL (75-99)
[2018-09-26] MEDS: ASCORBIC ACID 500 MG TAB PO SCH (07:18)
[2018-09-26 07:40] LABS: Albumin 2.8 g/dL (3.5-5.0); Potassium 3.9 mmol/L (3.5-5.1); Total Bilirubin 0.3 mg/dL (0.2-1.3)
[2018-09-26] MEDS: CHOLECALCIFEROL 1,000 UNIT TAB PO SCH (07:44)
[2018-09-26 07:46] LABS: Glucose,Whole Blood 58 mg/dL (75-99)
[2018-09-26] MEDS: CARVEDILOL 12.5 MG TAB PO SCH ×2 (07:48→17:00)
[2018-09-26] MEDS: FENOFIBRATE 54 MG TAB PO SCH (07:48)
[2018-09-26] MEDS: LOSARTAN 50 MG TAB PO SCH (07:48)
--- NOTE | 2018-09-26 08:24 | P.HPOR ---
History of Present Illness H&P Date: 09/25/18 This is a 73 year-old female who is admitted for cellulitis of the left knee. Patient underwent left total knee arthroplasty on 08/05/2018. The patient was doing well postoperatively, but then developed difficulty lifting the left leg. Patient was taken to the OR for repair of the quadriceps tendon of the left knee on 09/09/2018. Patient was seen in the office as an outpatient on September 22, 2018 and was found to have redness over the incision site. Patient's home care nurse called on 09/25/2018 to report continued redness over the incision site. Patient has been on oral Keflex 500mg since 09/22/2018. Patient states that her knee is very painful. Patient's past medical history significant for COPD, diabetes mellitus, hyperlipidemia and hypertension. Patient denies any fever/chills, drainage, shortness breath, chest pain, numbness, weakness or tingling. Review of Systems See HPI. Past Medical History Past Medical History: COPD, Diabetes Mellitus, Hyperlipidemia, Hypertension, Pneumonia Additional Past Medical History / Comment(s): currently being treated for UTI History of Any Multi-Drug Resistant Organisms: None Reported Past Surgical History: Bowel Resection, Hysterectomy, Joint Replacement, Orthopedic Surgery Additional Past Surgical History / Comment(s): colon resection with ileostomy/later reversal, surgery for fx left femur, left knee replacement 07/2018, Past Anesthesia/Blood Transfusion Reactions: No Reported Reaction Past Psychological History: No Psychological Hx Reported Smoking Status: Former smoker Past Alcohol Use History: None Reported Additional Past Alcohol Use History / Comment(s): 2 PPD for 56 years, quit smoking 05/2018 Past Drug Use History: None Reported - Past Family History Mother Additional Family Medical History / Comment(s): heart problems Father Family Medical History: Cancer Additional Family Medical History / Comment(s): lung Sister(s) Family Medical History: Cancer Additional Family Medical History / Comment(s): leukemia Medications and Allergies Home Medications Medication Instructions Recorded Confirmed Type ALPRAZolam [Xanax] 0.25 mg PO Q8HR PRN 10/05/17 09/25/18 History Ascorbic Acid [Vitamin C] 500 mg PO MOWEFR 10/05/17 09/25/18 History Carvedilol 25 mg PO BID 10/05/17 09/25/18 History Fenofibrate [Lofibra] 54 mg PO DAILY 10/05/17 09/25/18 History Fluticasone/Vilanterol [Breo 1 inhalation INHALATION DAILY PRN 10/05/17 09/25/18 History Ellipta 200-25 Mcg INH] INSULIN LISPRO (humaLOG) [humaLOG] 7 units SQ AC-TID 10/05/17 09/25/18 History Insulin Detemir (Levemir) [Levemir] 23 unit SQ HS 10/05/17 09/25/18 History Losartan Potassium 50 mg PO QAM 10/05/17 09/25/18 History [place]-3 Fatty Acids/Fish Oil [Fish 1 cap PO DAILY 10/05/17 09/25/18 History Oil 1,000 mg Softgel] Ubidecarenone [Co Q-10] 200 mg PO DAILY 10/05/17 09/25/18 History Albuterol Inhaler [Ventolin Hfa 1 - 2 puff INHALATION Q6HR PRN 07/24/18 09/25/18 History Inhaler] Cholecalciferol [Vitamin D3 (25 2,000 mg PO DAILY 07/24/18 09/25/18 History Mcg = 1000 Iu)] Ipratropium-Albuterol Nebulize 3 ml INHALATION RT-QID PRN 07/24/18 09/25/18 History [Duoneb 0.5 mg-3 mg/3 ml Soln] Red Yeast Rice 600 mg PO DAILY 07/24/18 09/25/18 History Aspirin 325 mg PO BID #14 tab 09/11/18 09/25/18 Rx HYDROcodone/APAP 5-325MG [[place] 1 - 2 tab PO Q6HR PRN #30 tab 09/11/18 09/25/18 Rx 5-325] Sennosides [Senokot] 1 tab PO BID #60 tablet 09/11/18 09/25/18 Rx Cephalexin [Keflex] 500 mg PO QID 09/25/18 09/25/18 History Allergies Allergy/AdvReac Type Severity Reaction Status Date / Time No Known Allergies Allergy Verified 09/25/18 13:59 Physical Examination On exam patient is lying comfortably in bed in no acute distress. Knee immobilizer is in place. Immobilizer is removed for exam. There is erythema and an eschar over the left knee incision. There is mild drainage from the incision. The left knee is tender to palpation. Sensation is intact. Calf is soft and nontender to palpation. Neurovascular status and circulatory status are intact. Exams of the head, neck, right lower extremity and bilateral upper extremities are within normal limits. Results - Labs Result Diagrams: 09/25/18 14:01 09/25/18 14:01 Assessment and Plan (1) Ulcer of left knee Current Visit: Yes Status: Acute Code(s): L97.829 - NON-PRESSURE CHRONIC ULCER OTH PRT L LOW LEG W UNSP SEVERITY SNOMED Code(s): 068201959 (2) S/P tendon repair Current Visit: No Status: Acute Code(s): Z98.890 - OTHER SPECIFIED POSTPROCEDURAL STATES SNOMED Code(s): 512897920 (3) S/P total knee arthroplasty Current Visit: No Status: Acute Code(s): Z96.659 - PRESENCE OF UNSPECIFIED ARTIFICIAL KNEE JOINT SNOMED Code(s): 8461488554373 Plan: 1. NPO. 2. Daily dressing changes to left knee. Keep dressing clean and dry. 3. Weight bearing as tolerated with knee immobilizer at all times. 4. SCDs and LIVIER pedraza bilaterally. 5. Appreciate input from internal medicine and infectious disease. 6. IV antibiotics. 7. Planning for surgical I&D of the left knee on 09/26/2018.
[2018-09-26 08:42] LABS: Glucose,Whole Blood 100 mg/dL (75-99)
[2018-09-26] MEDS ORDERED: ASPIRIN 81 MG PO SCH (09:00)
[2018-09-26 09:18] LABS: C Reactive Protein 30.8 mg/L (<10.0)
[2018-09-26 11:47] LABS: Glucose,Whole Blood 88 mg/dL (75-99)
[2018-09-26] MEDS: DEXTROSE 5%-0.45% NACL 1,000 ML IV SCH (11:48)
[2018-09-26] MEDS: INSULIN ASPART (NovoLOG) 100 UNIT/ML VIAL SQ SCH ×3 (12:04→20:52)
[2018-09-26] MEDS ORDERED: NALOXONE 0.4 MG/ML 1 ML VIAL IV PRN (13:07)
[2018-09-26] MEDS ORDERED: LACTATED RINGERS 1,000 ML IV ONE (13:08)
[2018-09-26] MEDS ORDERED: DEXAMETHASONE SOD PHOS (MDV) 100 MG/10 ML VIAL IVP ONE (13:30)
[2018-09-26] MEDS ORDERED: ONDANSETRON 4 MG/2 ML VIAL IVP ONE (13:30)
[2018-09-26] MEDS ORDERED: fentaNYL (PF) 50 MCG/ML 2 ML AMP IVP ONE (13:31)
[2018-09-26 13:33] LABS: Glucose,Whole Blood 70 mg/dL (75-99)
[2018-09-26] MEDS ORDERED: MIDAZOLAM 2 MG/2 ML VIAL ONE (14:19)
[2018-09-26] MEDS ORDERED: fentaNYL (PF) 50 MCG/ML 2 ML AMP ONE (14:19)
[2018-09-26] MEDS ORDERED: PROPOFOL 10 MG/ML 20 ML VIAL IV ONE (14:19)
[2018-09-26] MEDS ORDERED: ePHEDrine SULFATE/0.9% NACL/PF 50 MG/5 ML SYRINGE IV ONE (14:19)
[2018-09-26] MEDS ORDERED: SUCCINYLCHOLINE CHLORIDE 100 MG/5 ML SYR IV ONE (14:19)
[2018-09-26] MEDS ORDERED: LIDOCAINE 1% INJ 10MG/ML (20 ML MDV) ONE (14:19)
[2018-09-26] MEDS ORDERED: ceFAZolin 3,000 MG in SODIUM CHLORIDE 0.9% IRRIGATIO 3,000 ML IRRIGATION ONE (14:30)
--- NOTE | 2018-09-26 14:42 | P.CONS ---
History of Present Illness - Reason for Consult Consult date: 09/26/18 Medical management - History of Present Illness This is a 73-year-old female patient of Dr. Frazier with past history for COPD, diabetes mellitus type 2 insulin requiring, hypertension, hyperlipidemia, generalized osteoarthritis, generalized anxiety disorder. Patient has history of osteoarthritis and was recently admitted under the care of Dr. Lara status post left total knee arthroplasty on August 05. Patient did not have any postop complications and was discharged home the following day with [facility]. Patient was doing well with physical therapy the first 2 weeks then developed discomfort and inability lift her leg up and not been able to participate in any physical therapy. Patient was seen Dr. Lara and was brought back in the hospital on September 09 and underwent repair of patellar retin aculum tear and rupture of the quadriceps tendon. She did relatively well immediately but developed some discoloration to the anterior aspect of the knee. She was seen by the home care nurse and then evaluated by her surgeon. Because of the marked abnormality she was brought in the hospital. Plan is for surgical I&D today. Patient had a low blood sugar this morning of 42 for which scheduled NovoLog 7 units with meals will be discontinued, long acting insulin will be decreased to 12 units from 23. IV fluids will be changed to D5 half normal saline at 75 mL per hour. Patient's last hemoglobin A1c was 5.9. Patient states that she has not been eating much due to lack of appetite. Regarding oxygen, patient states she uses 3 L at bedtime only. She denies history of obstructive sleep apnea. Patient denies having any chest pain, shortness of breath, abdominal pain, nausea or vomiting, no diarrhea. . Review of Systems Constitutional: Denies anorexia, Denies chills, Denies fatigue, Denies fever, Denies lethargy, Denies malaise, Denies poor appetite, Denies weakness Ears, nose, mouth and throat: Denies dysphagia, Denies nasal congestion, Denies nasal discharge, Denies vertigo Cardiovascular: Denies chest pain, Denies decreased exercise tolerance, Denies dyspnea on exertion, Denies edema, Denies leg edema, Denies lightheadedness, Denies syncope Respiratory: Reports home oxygen, Denies cough, Denies cough with sputum, Denies dyspnea, Denies excessive sputum, Denies hemoptysis, Denies respiratory infections, Denies snoring Gastrointestinal: Denies abdominal pain, Denies loss of appetite, Denies nausea, Denies vomiting Genitourinary: Denies dysuria, Denies urgency, Denies urinary frequency Musculoskeletal: Reports gait dysfunction, Denies frequent falls, Denies muscle weakness, Denies myalgias Musculoskeletal: left: knee pain, knee stiffness, knee swelling Integumentary: Reports darkening of skin, Reports wounds, Denies pruritus, Denies rash Neurological: Reports gait dysfunction, Denies aphasia, Denies change in mentation, Denies change in speech, Denies seizures, Denies syncope Psychiatric: Denies anxiety, Denies depression Endocrine: Denies fatigue, Denies weight change Past Medical History Past Medical History: COPD, Diabetes Mellitus, Hyperlipidemia, Hypertension, Pneumonia Additional Past Medical History / Comment(s): currently being treated for UTI History of Any Multi-Drug Resistant Organisms: None Reported Past Surgical History: Bowel Resection, Hysterectomy, Joint Replacement, Orthopedic Surgery Additional Past Surgical History / Comment(s): colon resection with ileostomy/later reversal, surgery for fx left femur, left knee replacement 07/2018, Past Anesthesia/Blood Transfusion Reactions: No Reported Reaction Past Psychological History: No Psychological Hx Reported Smoking Status: Former smoker Past Alcohol Use History: None Reported Additional Past Alcohol Use History / Comment(s): 2 PPD for 56 years, quit smoking 05/2018 but has continued to smoke on and off since that time. No illicit drug use or alcohol use. Patient has [facility]. Past Drug Use History: None Reported - Past Family History Mother Additional Family Medical History / Comment(s): heart problems Father Family Medical History: Cancer Additional Family Medical History / Comment(s): lung Sister(s) Family Medical History: Cancer Additional Family Medical History / Comment(s): leukemia Medications and Allergies Home Medications Medication Instructions Recorded Confirmed Type ALPRAZolam [Xanax] 0.25 mg PO Q8HR PRN 10/05/17 09/25/18 History Ascorbic Acid [Vitamin C] 500 mg PO MOWEFR 10/05/17 09/25/18 History Carvedilol 25 mg PO BID 10/05/17 09/25/18 History Fenofibrate [Lofibra] 54 mg PO DAILY 10/05/17 09/25/18 History Fluticasone/Vilanterol [Breo 1 inhalation INHALATION DAILY PRN 10/05/17 09/25/18 History Ellipta 200-25 Mcg INH] INSULIN LISPRO (humaLOG) [humaLOG] 7 units SQ AC-TID 10/05/17 09/25/18 History Insulin Detemir (Levemir) [Levemir] 23 unit SQ HS 10/05/17 09/25/18 History Losartan Potassium 50 mg PO QAM 10/05/17 09/25/18 History [place]-3 Fatty Acids/Fish Oil [Fish 1 cap PO DAILY 10/05/17 09/25/18 History Oil 1,000 mg Softgel] Ubidecarenone [Co Q-10] 200 mg PO DAILY 10/05/17 09/25/18 History Albuterol Inhaler [Ventolin Hfa 1 - 2 puff INHALATION Q6HR PRN 07/24/18 09/25/18 History Inhaler] Cholecalciferol [Vitamin D3 (25 2,000 mg PO DAILY 07/24/18 09/25/18 History Mcg = 1000 Iu)] Ipratropium-Albuterol Nebulize 3 ml INHALATION RT-QID PRN 07/24/18 09/25/18 History [Duoneb 0.5 mg-3 mg/3 ml Soln] Red Yeast Rice 600 mg PO DAILY 07/24/18 09/25/18 History Aspirin 325 mg PO BID #14 tab 09/11/18 09/25/18 Rx HYDROcodone/APAP 5-325MG [[place] 1 - 2 tab PO Q6HR PRN #30 tab 09/11/18 09/25/18 Rx 5-325] Sennosides [Senokot] 1 tab PO BID #60 tablet 09/11/18 09/25/18 Rx Cephalexin [Keflex] 500 mg PO QID 09/25/18 09/25/18 History Allergies Allergy/AdvReac Type Severity Reaction Status Date / Time No Known Allergies Allergy Verified 09/26/18 13:42 Physical Exam Vitals: Vital Signs Temp Pulse Resp BP Pulse Ox 09/26/18 08:00 78 15 09/26/18 07:46 98.4 F 78 15 166/76 94 L 09/26/18 01:05 97.6 F 70 19 133/69 98 09/25/18 19:40 98.1 F 81 20 111/72 96 09/25/18 13:27 98.1 F 16 134/65 Intake and Output 09/25/18 09/26/18 09/26/18 22:59 06:59 14:59 Intake Total 670 600 Balance 670 600 Intake: Intake, IV Titration 130 600 Amount Sodium Chloride 0.9% 1, 130 600 000 ml @ 65 mls/hr IV . [id number] [facility] Rx#:[id number] Oral 540 Other: Voiding Method Toilet Toilet Diaper Diaper Incontinent Incontinent # Voids 1 2 # Bowel Movements 0 Gen: This is a 73-year-old female. Patient is resting bed appears to be comfortable and in no acute distress. HEENT: Head is atraumatic, normocephalic. Pupils equal, round. Sclerae is anicteric. NECK: Supple. No JVD. No lymphadenopathy. No thyromegaly. LUNGS: Clear to auscultation. No wheezes or rhonchi. No intercostal retractions. HEART: Regular rate and rhythm. No murmur. ABDOMEN: Soft. Bowel sounds are present. No masses. No tenderness. EXTREMITIES: No pedal edema. No calf tenderness. Large dressing and immobilizer on the left knee. NEUROLOGICAL: Patient is awake, alert and oriented x3. Cranial nerves 2 through 12 are grossly intact. Results CBC & Chem 7: 09/25/18 14:01 09/26/18 06:44 Labs: Abnormal Lab Results - Last 24 Hours (Table) 09/25/18 09/25/18 09/25/18 Range/Units 14:01 14:01 16:50 MCHC 29.6 L (31.0-37.0) g/dL RDW 16.1 H (11.5-15.5) % ESR (0-20) mm/hr Chloride 114 H (98-107) mmol/L Carbon Dioxide 19 L (22-30) mmol/L BUN 34 H (7-17) mg/dL Creatinine 1.73 H (0.52-1.04) mg/dL Glucose 100 H (74-99) mg/dL POC Glucose (mg/dL) 100 H (75-99) mg/dL ALT 6 L (9-52) U/L C-Reactive Protein (<10.0) mg/L Total Protein (6.3-8.2) g/dL Albumin 3.4 L (3.5-5.0) g/dL 09/25/18 09/26/18 09/26/18 Range/Units 19:52 06:44 06:44 MCHC (31.0-37.0) g/dL RDW (11.5-15.5) % ESR 61 H (0-20) mm/hr Chloride 119 H (98-107) mmol/L Carbon Dioxide 19 L (22-30) mmol/L BUN 28 H (7-17) mg/dL Creatinine 1.50 H (0.52-1.04) mg/dL Glucose 42 L* (74-99) mg/dL POC Glucose (mg/dL) 183 H (75-99) mg/dL ALT (9-52) U/L C-Reactive Protein 30.8 H (<10.0) mg/L Total Protein 6.0 L (6.3-8.2) g/dL Albumin 2.8 L (3.5-5.0) g/dL 09/26/18 09/26/18 09/26/18 Range/Units 07:03 07:44 08:29 MCHC (31.0-37.0) g/dL RDW (11.5-15.5) % ESR (0-20) mm/hr Chloride (98-107) mmol/L Carbon Dioxide (22-30) mmol/L BUN (7-17) mg/dL Creatinine (0.52-1.04) mg/dL Glucose (74-99) mg/dL POC Glucose (mg/dL) 52 L 58 L 100 H (75-99) mg/dL ALT (9-52) U/L C-Reactive Protein (<10.0) mg/L Total Protein (6.3-8.2) g/dL Albumin (3.5-5.0) g/dL Microbiology - Last 24 Hours (Table) 09/25/18 14:50 Gram Stain - Preliminary Knee - Left Wound Culture - Preliminary 09/25/18 14:50 Anaerobic Culture - Preliminary Knee - Left Assessment and Plan Plan: 1. Surgical wound ulceration and eschar at the previous left knee total arthroplasty status post patellar retinaculum and quadriceps tendon repair. Patient is scheduled for I&D today. Dr. Martinez is following and patient is currently on Kefzol. 2. Diabetes mellitus type 2, insulin requiring, uncontrolled with hypoglycemia. Levemir 23 units at bedtime will be decreased to 12 units, NovoLog 7 units with meals will be discontinued. Continue NovoLog scale. IV fluids changed to D5 half normal saline. 3. Hypertension. Continue Coreg 25 mg twice daily, losartan 50 mg daily. 4. Hyperlipidemia. Continue fenofibrate, omega-3. 5. Generalized anxiety disorder. Continue Xanax or 0.25 mg every 8 hours as needed. 6. History of bowel resection, stable. 7. Tobacco use and dependence. Patient continues to smoke off and on. Nicotine patch. 8. DVT prophylaxis. Aspirin 325 mg twice daily. 9. GI prophylaxis. Pepcid. Discharge plan: Home with [facility] Impression and plan of care have been directed as dictated by the signing physician. Annie Ba nurse practitioner acting as scribe for signing physician.
--- NOTE | 2018-09-26 15:02 | P.OP ---
Date of Procedure: 09/26/18 Preoperative Diagnosis: Infection left knee Postoperative Diagnosis: Infection left knee Procedure(s) Performed: Irrigation debridement left knee Anesthesia: MARY ALICE Surgeon: Vincenzo Lara Partition Assembly Machine Operator #1: Annamarie Becerra Estimated Blood Loss (ml): 20 Pathology: other (Cultures 2) Condition: stable Disposition: PACU Indications for Procedure: This is a 73-year-old female who had a total knee arthroplasty performed on 08/05/2017. She subsequently ruptured her patellar retinaculum and had a repair that on 09/09/2018. She presented to the office on Saturday with swelling and redness about her knee. She is placed on antibiotics and was to be followed closely. The next day the swelling and redness became worse and she was going admitted to the hospital for IV antibiotics and an infectious disease consult. I recommended an incision and drainage of her right knee. I've discussed at length with her the seriousness of this problem. There may be significant soft tissue loss which may require further skin grafting or even muscle flap. There is also possibility of a deep infection from all this. I explained this to the best of my ability and informed consent was obtained for incision and drainage of the left knee. Operative Findings: The operative findings show a large eschar the anterior aspect of the left knee. The eschar measures 3by 4 cm. There is also questionable deep infection. Description of Procedure: The patient was seen in the preoperative area, consent was reviewed, and operative site was marked with a skin marker. Patient was then brought to the operating room and given a general anesthetic by the anesthesia department. The left knee was prepped and draped in usual sterile fashion. On gross examination of the knee there is a large eschar in the inferior aspect of the incision. The eschar measures 3.5 x 4 cm. The rest of the incision is healed, although there is small amount of drainage distally. After evaluating the eschar, the decision was reached to not remove the eschar secondary to the large wound that it may create. The incision was opened up distally and proximally. Also, the knee was aspirated with 10 mL of turbid fluid aspirated. Superficial wounds and deep fluid was cultured. Through the proximal incision, it was opened further deep into the knee joint. This was thoroughly irrigated with antibiotic solution with pulsatile lavage. The wounds were then closed with 0 Vicryl for the arthrotomy, followed by 2-0 Vicryl and silva for the skin. A sterile dressing was then applied. Sterile dressing was applied and patient was transferred to recovery room in stable condition. Asst. JONAH Garg was required due the complexity of surgery the need for a skilled surgical instrument maker.
[2018-09-26] MEDS ORDERED: ceFAZolin IN SWFI 2 GM/20 ML SYRINGE IVP SCH (16:00)
[2018-09-26 16:17] LABS: Glucose,Whole Blood 76 mg/dL (75-99)
[2018-09-26] MEDS: NICOTINE 14MG/24HR PATCH TRANSDERM SCH (17:00)
[2018-09-26 17:03] LABS: Glucose,Whole Blood 84 mg/dL (75-99)
[2018-09-26] MEDS: HYDROcodone/APAP 7.5-325MG 1 EACH TAB PO PRN (19:04)
[2018-09-26] MEDS: ASPIRIN 325 MG TAB PO SCH (20:52)
[2018-09-26] MEDS: SENNOSIDES-DOCUSATE SODIUM 1 EACH TAB PO SCH (20:52)
[2018-09-26] MEDS: INSULIN DETEMIR (LEVEMIR) 100 UNIT/ML SYR SQ SCH (20:52)
[2018-09-26 20:54] LABS: Glucose,Whole Blood 199 mg/dL (75-99)
--- NOTE | 2018-09-26 23:50 | P.PN ---
Subjective Progress Note Date: 09/26/18 73-year-old female with history of multiple medical troubles including oxygen dependent COPD, ongoing tobacco use and significant degenerative disease of her left knee. 07/21/2018 she was hospitalized for a left total knee arthroplasty. Surgery went well and she had no great difficulties. However after several weeks despite physical therapy she was having increasing difficulties moving and lifting her leg. By 09/09/2018 she is having great difficulties with the leg and had been evaluated by orthopedics and was brought in the hospital for evaluation of the knee. There was evidence of a patellar right tenaculum rupture and quadriceps tendon rupture. These are surgically corrected and she was doing relatively well. However she started to develop some discoloration to the anterior aspect of the knee. She was seen by the home care nurse and then evaluated by her surgeon. Because of the marked abnormality she was brought in the hospital. The now plans for potential surgical incision and drainage to the site. With concerns to remove the consult was requested. She is denying stomach and fevers, chills or rigors but does feel poorly overall. 09/26/2018 patient feels slightly better today. Still having some nausea but that is improving. She's had a surgical debridement today and has just returned. Dressings are not removed. It is related that the large eschar is not removed deep cultures were obtained. The patient is comfortable and denies distress. Objective - Vital Signs Vital signs: Vital Signs Temp 97.8 F 09/26/18 16:39 Pulse 76 09/26/18 17:39 Resp 15 09/26/18 16:39 BP 137/81 09/26/18 17:39 Pulse Ox 95 09/26/18 16:39 Intake & Output 09/26/18 09/26/18 09/27/18 06:59 18:59 06:59 Intake Total 1270 901 275 Output Total 320 Balance 1270 581 275 Weight 66.224 kg Intake: IV 901 Intake, IV Titration 730 75 Amount Dextrose 5%-0.45% NaCl 1, 75 000 ml @ 75 mls/hr IV . [id number] [facility] Rx#:[id number] Sodium Chloride 0.9% 1, 730 000 ml @ 65 mls/hr IV . [id number] [facility] Rx#:[id number] Oral 540 0 200 Output: Urine 300 Estimated Blood Loss 20 Other: Voiding Method Toilet Toilet Toilet Diaper Diaper Diaper Incontinent Incontinent Incontinent # Voids 2 - Exam HEENT: Anicteric conjunctiva are pink and moist nasal mucosa grossly intact without significant lesions, there is no thrush. Neck: The neck is supple without significant lymphadenopathy or thyromegaly. Lungs: There is symmetrical bilateral air entry. There is no significant bronchial sounds. There is no egophony or dullness. Heart: Irregular with an audible S1 and S2 soft S4 no distinct murmur click or rub PMI was nondisplaced Abdomen: Positive bowel sounds soft and nontender without palpable masses or organomegaly. There was no guarding or rebound. Extremities: The upper extremities have excellent pulses they are symmetric, no significant petechiae or telangiectasia. No splinter hemorrhages were noted. Right lower extremity without acute lesion. Left lower extremity shows of the recent surgical intervention. The bulky postoperative dressing is in place and that removed given that she just returned from surgery Neuro: Awake alert oriented to person place and time. There are no acute new gross focal sensory motor deficits. - Labs CBC & Chem 7: 09/25/18 14:01 09/26/18 06:44 Labs: Abnormal Lab Results - Last 24 Hours (Table) 09/26/18 09/26/18 09/26/18 Range/Units 06:44 06:44 07:03 ESR 61 H (0-20) mm/hr Chloride 119 H (98-107) mmol/L Carbon Dioxide 19 L (22-30) mmol/L BUN 28 H (7-17) mg/dL Creatinine 1.50 H (0.52-1.04) mg/dL Glucose 42 L* (74-99) mg/dL POC Glucose (mg/dL) 52 L (75-99) mg/dL C-Reactive Protein 30.8 H (<10.0) mg/L Total Protein 6.0 L (6.3-8.2) g/dL Albumin 2.8 L (3.5-5.0) g/dL 09/26/18 09/26/18 09/26/18 Range/Units 07:44 08:29 13:21 ESR (0-20) mm/hr Chloride (98-107) mmol/L Carbon Dioxide (22-30) mmol/L BUN (7-17) mg/dL Creatinine (0.52-1.04) mg/dL Glucose (74-99) mg/dL POC Glucose (mg/dL) 58 L 100 H 70 L (75-99) mg/dL C-Reactive Protein (<10.0) mg/L Total Protein (6.3-8.2) g/dL Albumin (3.5-5.0) g/dL 09/26/18 Range/Units 20:51 ESR (0-20) mm/hr Chloride (98-107) mmol/L Carbon Dioxide (22-30) mmol/L BUN (7-17) mg/dL Creatinine (0.52-1.04) mg/dL Glucose (74-99) mg/dL POC Glucose (mg/dL) 199 H (75-99) mg/dL C-Reactive Protein (<10.0) mg/L Total Protein (6.3-8.2) g/dL Albumin (3.5-5.0) g/dL Microbiology - Last 24 Hours (Table) 09/26/18 15:03 Anaerobic Culture - Preliminary Knee - Left 09/26/18 15:03 Anaerobic Culture - Preliminary Knee - Left 09/26/18 15:03 Wound Culture - Preliminary Knee - Left 09/26/18 15:03 Wound Culture - Preliminary Knee - Left 09/25/18 14:50 Gram Stain - Preliminary Knee - Left Wound Culture - Preliminary Laboratory Results WBC 5.5 k/uL (3.8-10.6) 09/25/18 14:01 RBC 4.22 m/uL (3.80-5.40) 09/25/18 14:01 Hgb 12.0 gm/dL (11.4-16.0) 09/25/18 14:01 Hct 40.6 % (34.0-46.0) 09/25/18 14:01 MCV 96.3 fL (80.0-100.0) 09/25/18 14:01 MCH 28.5 pg (25.0-35.0) 09/25/18 14:01 MCHC 29.6 g/dL (31.0-37.0) L 09/25/18 14:01 RDW 16.1 % (11.5-15.5) H 09/25/18 14:01 Plt Count 250 k/uL (150-450) 09/25/18 14:01 Neutrophils % 72 % 09/25/18 14:01 Lymphocytes % 20 % 09/25/18 14:01 Monocytes % 6 % 09/25/18 14:01 Eosinophils % 0 % 09/25/18 14:01 Basophils % 0 % 09/25/18 14:01 Neutrophils # 3.9 k/uL (1.3-7.7) 09/25/18 14:01 Lymphocytes # 1.1 k/uL (1.0-4.8) 09/25/18 14:01 Monocytes # 0.3 k/uL (0-1.0) 09/25/18 14:01 Eosinophils # 0.0 k/uL (0-0.7) 09/25/18 14:01 Basophils # 0.0 k/uL (0-0.2) 09/25/18 14:01 Hypochromasia Marked 09/25/18 14:01 Anisocytosis Slight 09/25/18 14:01 ESR 61 mm/hr (0-20) H 09/26/18 06:44 PT 10.3 sec (9.0-12.0) 09/25/18 14:01 INR 1.0 (<1.2) 09/25/18 14:01 Sodium 143 mmol/L (137-145) 09/26/18 06:44 Potassium 3.9 mmol/L (3.5-5.1) 09/26/18 06:44 Chloride 119 mmol/L (98-107) H 09/26/18 06:44 Carbon Dioxide 19 mmol/L (22-30) L 09/26/18 06:44 Anion Gap 5 mmol/L 09/26/18 06:44 BUN 28 mg/dL (7-17) H 09/26/18 06:44 Creatinine 1.50 mg/dL (0.52-1.04) H 09/26/18 06:44 Est GFR (CKD-EPI)AfAm 40 (>60 ml/min/1.73 sqM) 09/26/18 06:44 Est GFR (CKD-EPI)NonAf 34 (>60 ml/min/1.73 sqM) 09/26/18 06:44 Glucose 42 mg/dL (74-99) L* 09/26/18 06:44 POC Glucose (mg/dL) 199 mg/dL (75-99) H 09/26/18 20:51 POC Glu Career Development Manager ID Serina Olmedo 09/26/18 20:51 Calcium 9.0 mg/dL (8.4-10.2) 09/26/18 06:44 Total Bilirubin 0.3 mg/dL (0.2-1.3) 09/26/18 06:44 AST 16 U/L (14-36) 09/26/18 06:44 ALT 14 U/L (9-52) 09/26/18 06:44 Alkaline Phosphatase 72 U/L (38-126) 09/26/18 06:44 C-Reactive Protein 30.8 mg/L (<10.0) H 09/26/18 06:44 Total Protein 6.0 g/dL (6.3-8.2) L 09/26/18 06:44 Albumin 2.8 g/dL (3.5-5.0) L 09/26/18 06:44 Microbiology 09/26/18 15:03 Knee - Left Anaerobic Culture - Preliminary 09/26/18 15:03 Knee - Left Anaerobic Culture - Preliminary 09/26/18 15:03 Knee - Left Wound Culture - Preliminary 09/26/18 15:03 Knee - Left Wound Culture - Preliminary 09/25/18 14:50 Knee - Left Gram Stain - Preliminary 09/25/18 14:50 Knee - Left Wound Culture - Preliminary 09/25/18 14:50 Knee - Left Anaerobic Culture - Preliminary Assessment and Plan (1) Acute exacerbation of chronic obstructive airways disease Current Visit: No Status: Acute Code(s): J44.1 - CHRONIC OBSTRUCTIVE PULMONARY DISEASE W (ACUTE) EXACERBATION SNOMED Code(s): 300682432 (2) Diabetes mellitus Current Visit: No Status: Acute Code(s): E11.9 - TYPE 2 DIABETES MELLITUS WITHOUT COMPLICATIONS SNOMED Code(s): 60466038 (3) Status post left knee replacement Current Visit: No Status: Acute Code(s): Z96.652 - PRESENCE OF LEFT A RTIFICIAL KNEE JOINT SNOMED Code(s): 0178496554016 (4) Ulcer of left knee Narrative/Plan: 73-year-old female with multiple medical troubles including oxygen dependent COPD presents to Hospital worsening of the wound to the left total knee arthroplasty site. It is noted she has degenerative joint disease of the left total knee arthroplasty was performed. The postoperative timeframe she difficulties with disruption of the patellar retinaculum as well as the quadriceps tendon rupture. This was surgically repaired and she was having some improvement. However Lindsey is evidence of the ulceration which is an eschar over the anterior aspect of the knee. It appears surgical debridement is planned. As for further direct with the next steps can be. Antibiotic therapy with Ancef was added. Concern will be that there will be exposed hardware directly underneath this eschar. If this is occurring she will need evaluation of her vascular status, significant peripheral vascular disease is likely occurring resulting in this nonhealing wound and ulceration. Smoking cessation is discussed. She this point in time does not have high-grade fevers, chills or rigors. Her chronic kidney disease is stable and her last hemoglobin A1c was 5.9 continue with good diabetes care and high-protein diet. Antibiotic and wound care direction postoperatively once the extent of the difficulty is clarified. 09/26/2018 the patient is status post surgery today. Feeling somewhat better. She is denying fevers or chills at this time. Pain is controlled. We are waiting culture results to further direct the antibiotic therapy as of now the cefazolin continues all cultures are in process. We are requesting vascular surgery to evaluate given the history of smoking in the eschar formation to the knee, concerned peripheral vascular disease. Current Visit: Yes Status: Acute Code(s): L97.829 - NON-PRESSURE CHRONIC ULCER OTH PRT L LOW LEG W UNSP SEVERITY SNOMED Code(s): 573838786
[2018-09-27] MEDS: DEXTROSE 5%-0.45% NACL 1,000 ML IV SCH ×2 (00:51→06:03)
[2018-09-27] MEDS: SODIUM CHLORIDE 0.9% 1,000 ML IV SCH ×2 (05:04→22:23)
[2018-09-27] MEDS: HYDROcodone/APAP 7.5-325MG 1 EACH TAB PO PRN ×3 (06:02→20:58)
[2018-09-27 06:58] LABS: Anisocytosis Slight; Basophils % (A) 0 %; Eosinophils % (A) 1 %; HCT 34.1 % (34.0-46.0); HGB 10.4 gm/dL (11.4-16.0); Hypochromasia Marked; Lymphocytes # (A) 0.4 k/uL (1.0-4.8); Lymphocytes % (A) 11 %; MCH 29.2 pg (25.0-35.0); MCHC 30.6 g/dL (31.0-37.0); MCV 95.4 fL (80.0-100.0); Mean Platelet Volume 8.1; Monocytes # (A) 0.1 k/uL (0-1.0); Monocytes % (A) 3 %; Neutrophils # (A) 3.3 k/uL (1.3-7.7); Neutrophils % (A) 85 %; Platelet Count 190 k/uL (150-450); RBC 3.57 m/uL (3.80-5.40); RDW 16.7 % (11.5-15.5); WBC 3.9 k/uL (3.8-10.6)
[2018-09-27 07:23] LABS: Glucose,Whole Blood 207 mg/dL (75-99)
[2018-09-27] MEDS: FAMOTIDINE 20 MG TAB PO SCH (07:45)
[2018-09-27] MEDS: CARVEDILOL 12.5 MG TAB PO SCH ×2 (07:45→17:22)
[2018-09-27] MEDS: ASPIRIN 325 MG TAB PO SCH ×2 (07:45→20:57)
[2018-09-27] MEDS: NICOTINE 14MG/24HR PATCH TRANSDERM SCH (07:45)
[2018-09-27] MEDS: INSULIN ASPART (NovoLOG) 100 UNIT/ML VIAL SQ SCH ×4 (07:45→20:52)
[2018-09-27] MEDS: CHOLECALCIFEROL 1,000 UNIT TAB PO SCH (07:45)
[2018-09-27] MEDS: LOSARTAN 50 MG TAB PO SCH (07:45)
[2018-09-27] MEDS: FENOFIBRATE 54 MG TAB PO SCH (07:45)
--- NOTE | 2018-09-27 11:46 | PN ---
PROGRESS NOTE Patient is a 73-year-old female, well known to me from my office. Patient has a has been coming for followup for carotid artery occlusive disease. The patient had a left total knee arthroplasty performed on 08/05/2017 and then subsequently she developed some further intervention because of some infection and patient had some I and D of that drainage and patient has developed a scar on the top of the patella, measurement is 3.5 x 4 cm. Left rest of the incision is clean and healing. Patient was seen is seen by the Infectious Disease for infection. MEDICAL HISTORY: History of diabetes, history of carotid artery stenosis. PHYSICAL EXAMINATION: Patient was seen in her room. NECK: Supple, trachea central. CHEST: Clear. Brachial radial pulses are 1+. Femorals on the 1+. Posterior tibial, dorsal pedis by the Doppler. No ischemic ulcer noted of the lower extremity. Capillary refill is decent. Patient has a long incision on the anterior aspect of the patella, the mid incision there is eschar with some flap necrosis noted 4 x 3 cm. No fluctuation noted. Most likely she will need some excision of the eschar and to cover the skin some flap to cover the incision. We will discuss with Infectious Disease. We will have opinion from the Plastic Surgery if a flap can be created to cover the patella. MMODL / IJN: [id number] /
[2018-09-27 11:52] LABS: Glucose,Whole Blood 166 mg/dL (75-99)
--- NOTE | 2018-09-27 12:08 | P.PN ---
Subjective Progress Note Date: 09/27/18 Principal diagnosis: S/P I and D left knee Patient is seen at bedside this morning. She is postop day #1 from I and D left knee with prior TKA. She has pain at the surgical site as expected but denies any new complaints. She denies numbness, tingling or calf pain. Review of s ystems is negative for fever, chills, chest pain, shortness of breath or other Objective - Vital Signs Vital signs: Vital Signs Temp 98.1 F 09/27/18 07:00 Pulse 77 09/27/18 07:00 Resp 16 09/27/18 07:00 BP 112/58 09/27/18 07:00 Pulse Ox 94 L 09/27/18 07:00 Intake & Output 09/26/18 09/27/18 09/27/18 18:59 06:59 18:59 Intake Total 901 1640 Output Total 320 Balance 581 1640 Weight 66.224 kg Intake: IV 901 Intake, IV Titration 900 Amount Dextrose 5%-0.45% NaCl 1, 900 000 ml @ 75 mls/hr IV . [id number] [facility] Rx#:[id number] Oral 0 740 Output: Urine 300 Estimated Blood Loss 20 Other: Voiding Method Toilet Toilet Toilet Diaper Diaper Diaper Incontinent Incontinent Incontinent # Voids 3 - Exam Inspection reveals a benign surgical wound. There is no evidence of active ble eding or drainage. She has Mark bandage. Neurovascular status is intact throughout the lower extremity with motor and sensation fully intact. Calf is soft and nontender. 1+ dorsalis pedis pulse and less than 2 second cap refill is present. - Constitutional General appearance: Present: no acute distress - Labs CBC & Chem 7: 09/27/18 05:34 09/26/18 06:44 Labs: Abnormal Lab Results - Last 24 Hours (Table) 09/26/18 09/26/18 09/27/18 Range/Units 13:21 20:51 05:34 RBC 3.57 L (3.80-5.40) m/uL Hgb 10.4 L (11.4-16.0) gm/dL MCHC 30.6 L (31.0-37.0) g/dL RDW 16.7 H (11.5-15.5) % Lymphocytes # 0.4 L (1.0-4.8) k/uL POC Glucose (mg/dL) 70 L 199 H (75-99) mg/dL 09/27/18 09/27/18 Range/Units 07:20 11:44 RBC (3.80-5.40) m/uL Hgb (11.4-16.0) gm/dL MCHC (31.0-37.0) g/dL RDW (11.5-15.5) % Lymphocytes # (1.0-4.8) k/uL POC Glucose (mg/dL) 207 H 166 H (75-99) mg/dL Microbiology - Last 24 Hours (Table) 09/25/18 14:50 Gram Stain - Final Knee - Left Wound Culture - Final 09/26/18 15:03 Gram Stain - Preliminary Knee - Left Wound Culture - Preliminary 09/26/18 15:03 Gram Stain - Preliminary Knee - Left Wound Culture - Preliminary 09/26/18 15:03 Anaerobic Culture - Preliminary Knee - Left 09/26/18 15:03 Anaerobic Culture - Preliminary Knee - Left Assessment and Plan (1) Ulcer of left knee Narrative/Plan: She will continue with routine postop orthopedic protocol including pain management, wound care, PT, DVT prophylaxis and medical management. Maintain knee immobilizer. She is afebrile and wound cultures are negative thus far. She is being followed by infectious disease and vascular surgery and appreciate their guidance. Continue Abiotics per ID. Will continue to monitor and make further recommendations as appropriate pending her clinical course. Current Visit: Yes Status: Acute Priority: Medium Code(s): L97.829 - NON- PRESSURE CHRONIC ULCER OTH PRT L LOW LEG W UNSP SEVERITY SNOMED Code(s): 542698150 Time with Patient: Less than 30
--- NOTE | 2018-09-27 14:03 | P.PN ---
Subjective Progress Note Date: 09/27/18 Principal diagnosis: Left knee pain, cellulitis Patient continued to be hemodynamically stable confused about her management as none of the Dr. Robles communicating with her and updating her with the treatment plan patient is frustrated and would like to know the plan Objective - Vital Signs Vital signs: Vital Signs Temp 98.1 F 09/27/18 07:00 Pulse 77 09/27/18 07:00 Resp 16 09/27/18 07:00 BP 112/58 09/27/18 07:00 Pulse Ox 94 L 09/27/18 07:00 Intake & Output 09/26/18 09/27/18 09/27/18 18:59 06:59 18:59 Intake Total 901 1640 Output Total 320 Balance 581 1640 Weight 66.224 kg Intake: IV 901 Intake, IV Titration 900 Amount Dextrose 5%-0.45% NaCl 1, 900 000 ml @ 75 mls/hr IV . [id number] [facility] Rx#:[id number] Oral 0 740 Output: Urine 300 Estimated Blood Loss 20 Other: Voiding Method Toilet Toilet Toilet Diaper Diaper Diaper Incontinent Incontinent Incontinent # Voids 3 - Exam Gen.: in stated age, no acute distress Heart: Normal S1-S2 Lungs: Clear to auscultation bilaterally Abdomen: Soft, no tenderness, positive bowel sounds in all 4 quadrant no guarding or rebound Skin: No new rash Psych: Alert and oriented 3 Neuro: No focal deficit Left knee dressing applied seems to be clean and intact positive pulses bi laterally - Labs CBC & Chem 7: 09/27/18 05:34 09/26/18 06:44 Labs: Abnormal Lab Results - Last 24 Hours (Table) 09/26/18 09/27/18 09/27/18 Range/Units 20:51 05:34 07:20 RBC 3.57 L (3.80-5.40) m/uL Hgb 10.4 L (11.4-16.0) gm/dL MCHC 30.6 L (31.0-37.0) g/dL RDW 16.7 H (11.5-15.5) % Lymphocytes # 0.4 L (1.0-4.8) k/uL POC Glucose (mg/dL) 199 H 207 H (75-99) mg/dL 09/27/18 Range/Units 11:44 RBC (3.80-5.40) m/uL Hgb (11.4-16.0) gm/dL MCHC (31.0-37.0) g/dL RDW (11.5-15.5) % Lymphocytes # (1.0-4.8) k/uL POC Glucose (mg/dL) 166 H (75-99) mg/dL Microbiology - Last 24 Hours (Table) 09/25/18 14:50 Gram Stain - Final Knee - Left Wound Culture - Final 09/26/18 15:03 Gram Stain - Preliminary Knee - Left Wound Culture - Preliminary 09/26/18 15:03 Gram Stain - Preliminary Knee - Left Wound Culture - Preliminary 09/26/18 15:03 Anaerobic Culture - Preliminary Knee - Left 09/26/18 15:03 Anaerobic Culture - Preliminary Knee - Left Assessment and Plan Assessment: 1. Flap necrosis on the left patella with cellulitic changes. Patient will require I&D and possible plastic surgery evaluation recommended by vascular surgery on previous note. Orthopedic surgery evaluated the patient and recommended conservative management from the prospective. Pain is fairly controlled. Antibiotics therapy to be continued her infectious disease and we will continue monitoring vital signs closely optimize her diabetes management. 2. Diabetes mellitus type 2. 3. COPD. 4. Hypertension. 5. Hyperlipidemia. 6. Debility and deconditioning. Plan discussed with patient and nursing staff and we will follow-up with vascular surgery recommendation regarding next step in management and possible other I&D based on clinical progress. Prognosis remained guarded
[2018-09-27 17:20] LABS: Glucose,Whole Blood 175 mg/dL (75-99)
[2018-09-27 20:07] LABS: Glucose,Whole Blood 127 mg/dL (75-99)
[2018-09-27] MEDS: SENNOSIDES-DOCUSATE SODIUM 1 EACH TAB PO SCH (20:57)
[2018-09-27] MEDS: INSULIN DETEMIR (LEVEMIR) 100 UNIT/ML SYR SQ SCH (22:22)
[2018-09-28 02:22] LABS: Glucose,Whole Blood 113 mg/dL (75-99)
[2018-09-28] MEDS: DEXTROSE 5%-0.45% NACL 1,000 ML IV SCH ×2 (05:56→14:37)
[2018-09-28 07:08] LABS: Glucose,Whole Blood 81 mg/dL (75-99)
[2018-09-28 07:28] LABS: Basophils % (A) 0 %; Eosinophils % (A) 1 %; HCT 33.6 % (34.0-46.0); HGB 10.6 gm/dL (11.4-16.0); Hypochromasia Moderate; Lymphocytes # (A) 1.1 k/uL (1.0-4.8); Lymphocytes % (A) 23 %; MCH 29.6 pg (25.0-35.0); MCHC 31.6 g/dL (31.0-37.0); MCV 93.8 fL (80.0-100.0); Mean Platelet Volume 7.9; Monocytes # (A) 0.3 k/uL (0-1.0); Monocytes % (A) 7 %; Neutrophils # (A) 3.2 k/uL (1.3-7.7); Neutrophils % (A) 68 %; Platelet Count 188 k/uL (150-450); RBC 3.58 m/uL (3.80-5.40); WBC 4.7 k/uL (3.8-10.6)
[2018-09-28] MEDS: INSULIN ASPART (NovoLOG) 100 UNIT/ML VIAL SQ SCH ×4 (07:40→20:17)
[2018-09-28] MEDS: SODIUM CHLORIDE 0.9% 1,000 ML IV SCH (08:00)
[2018-09-28] MEDS: CARVEDILOL 12.5 MG TAB PO SCH ×2 (08:59→17:23)
[2018-09-28] MEDS: ASPIRIN 325 MG TAB PO SCH ×2 (08:59→20:22)
[2018-09-28] MEDS: FAMOTIDINE 20 MG TAB PO SCH (08:59)
[2018-09-28] MEDS: CHOLECALCIFEROL 1,000 UNIT TAB PO SCH (08:59)
[2018-09-28] MEDS: FENOFIBRATE 54 MG TAB PO SCH (08:59)
[2018-09-28] MEDS: LOSARTAN 50 MG TAB PO SCH (08:59)
[2018-09-28] MEDS: NICOTINE 14MG/24HR PATCH TRANSDERM SCH (08:59)
[2018-09-28] MEDS: HYDROcodone/APAP 7.5-325MG 1 EACH TAB PO PRN ×2 (09:00→19:06)
--- NOTE | 2018-09-28 11:50 | P.PN ---
Subjective Progress Note Date: 09/28/18 Principal diagnosis: Left knee pain, cellulitis Patient continued to be hemodynamically stable no major events reported by nursing staff patient's currently is denying chest pain shortness breath nausea vomiting dumping dizziness lightheadedness or blurry vision patient's was admitted on the same floor for possible pneumonia Objective - Vital Signs Vital signs: Vital Signs Temp 97.6 F 09/28/18 07:00 Pulse 60 09/28/18 07:00 Resp 14 09/28/18 07:00 BP 156/74 09/28/18 07:00 Pulse Ox 96 09/28/18 07:00 Intake & Output 09/27/18 09/28/18 09/28/18 18:59 06:59 18:59 Intake Total 236 Balance 236 Intake: Oral 236 Other: Voiding Method Toilet Toilet Diaper Diaper Incontinent Incontinent # Voids 2 1 # Bowel Movements 0 - Exam Gen.: in stated age, no acute distress Heart: Normal S1-S2 Lungs: Clear to auscultation bilaterally Abdomen: Soft, no tenderness, positive bowel sounds in all 4 quadrant no guarding or rebound Skin: No new rash Psych: Alert and oriented 3 Neuro: No focal deficit Left knee dressing applied seems to be clean and intact positive pulses jj aterally - Labs CBC & Chem 7: 09/28/18 06:45 09/26/18 06:44 Labs: Abnormal Lab Results - Last 24 Hours (Table) 09/27/18 09/27/18 09/27/18 Range/Units 11:44 17:18 20:06 RBC (3.80-5.40) m/uL Hgb (11.4-16.0) gm/dL Hct (34.0-46.0) % RDW (11.5-15.5) % POC Glucose (mg/dL) 166 H 175 H 127 H (75-99) mg/dL 09/28/18 09/28/18 Range/Units 02:21 06:45 RBC 3.58 L (3.80-5.40) m/uL Hgb 10.6 L (11.4-16.0) gm/dL Hct 33.6 L (34.0-46.0) % RDW 16.0 H (11.5-15.5) % POC Glucose (mg/dL) 113 H (75-99) mg/dL Microbiology - Last 24 Hours (Table) 09/25/18 14:50 Anaerobic Culture - Preliminary Knee - Left 09/25/18 14:50 Gram Stain - Final Knee - Left Wound Culture - Final 09/26/18 15:03 Gram Stain - Preliminary Knee - Left Wound Culture - Preliminary 09/26/18 15:03 Gram Stain - Preliminary Knee - Left Wound Culture - Preliminary Assessment and Plan Assessment: 1. Flap necrosis on the left patella with cellulitic changes. Patient will require flap and possible plastic surgery evaluation recommended by vascular surgery on previous note. Orthopedic surgery evaluated the patient and recommended conservative management from the prospective. Pain is fairly controlled. Antibiotics therapy to be continued her infectious disease and we will continue monitoring vital signs closely optimize her diabetes management. 2. Diabetes mellitus type 2. 3. COPD. 4. Hypertension. 5. Hyperlipidemia. 6. Debility and deconditioning. Plan discussed with patient and we will continue monitoring vital signs closely repeat blood work in the morning and follow-up with vascular surgery final recommendation regarding ultimate planning and possible discharge versus transfer in the morning. Prognosis remained guarded
[2018-09-28 11:55] LABS: Glucose,Whole Blood 112 mg/dL (75-99)
--- NOTE | 2018-09-28 11:58 | P.PN ---
Subjective Progress Note Date: 09/28/18 Principal diagnosis: S/P I and D left knee Patient is seen at bedside this morning. She is postop day #2 from I and D left knee with prior TKA. She has pain at the surgical site as expected but denies any new complaints. She denies numbness, tingling or calf pain. Review of s ystems is negative for fever, chills, chest pain, shortness of breath or other Objective - Vital Signs Vital signs: Vital Signs Temp 97.6 F 09/28/18 07:00 Pulse 60 09/28/18 07:00 Resp 14 09/28/18 07:00 BP 156/74 09/28/18 07:00 Pulse Ox 96 09/28/18 07:00 Intake & Output 09/27/18 09/28/18 09/28/18 18:59 06:59 18:59 Intake Total 236 Balance 236 Intake: Oral 236 Other: Voiding Method Toilet Toilet Diaper Diaper Incontinent Incontinent # Voids 2 1 # Bowel Movements 0 - Exam Inspection reveals a benign surgical wound. There is no evidence of active bleeding or drainage. She has Mark bandage and immobilizer intact. Neurovascular status is intact throughout the lower extremity with motor and sensation fully intact. Calf is soft and nontender. 1+ dorsalis pedis pulse and less than 2 second cap refill is present. - Constitutional General appearance: Present: no acute distress - Labs CBC & Chem 7: 09/28/18 06:45 09/26/18 06:44 Labs: Abnormal Lab Results - Last 24 Hours (Table) 09/27/18 09/27/18 09/28/18 Range/Units 17:18 20:06 02:21 RBC (3.80-5.40) m/uL Hgb (11.4-16.0) gm/dL Hct (34.0-46.0) % RDW (11.5-15.5) % POC Glucose (mg/dL) 175 H 127 H 113 H (75-99) mg/dL 09/28/18 09/28/18 Range/Units 06:45 11:54 RBC 3.58 L (3.80-5.40) m/uL Hgb 10.6 L (11.4-16.0) gm/dL Hct 33.6 L (34.0-46.0) % RDW 16.0 H (11.5-15.5) % POC Glucose (mg/dL) 112 H (75-99) mg/dL Microbiology - Last 24 Hours (Table) 09/25/18 14:50 Anaerobic Culture - Preliminary Knee - Left 09/25/18 14:50 Gram Stain - Final Knee - Left Wound Culture - Final 09/26/18 15:03 Gram Stain - Preliminary Knee - Left Wound Culture - Preliminary 09/26/18 15:03 Gram Stain - Preliminary Knee - Left Wound Culture - Preliminary Assessment and Plan (1) Ulcer of left knee Narrative/Plan: She will continue with routine postop orthopedic protocol including pain chayo gement, wound care, PT, DVT prophylaxis and medical management. Maintain knee immobilizer. She continues to be afebrile and wound cultures continue to be negative. She is being followed by infectious disease and vascular surgery and appreciate their guidance. Vascular has recommended possible wound flap. Continue Antibiotics per ID. Will make further recommendations as appropriate pending her clinical course. Current Visit: Yes Status: Acute Priority: Medium Code(s): L97.829 - NON-PRESSURE CHRONIC ULCER OTH PRT L LOW LEG W UNSP SEVERITY SNOMED Code(s): 540781471 Time with Patient: Less than 30
[2018-09-28 17:07] LABS: Glucose,Whole Blood 118 mg/dL (75-99)
[2018-09-28 19:56] LABS: Glucose,Whole Blood 142 mg/dL (75-99)
[2018-09-28] MEDS: INSULIN DETEMIR (LEVEMIR) 100 UNIT/ML SYR SQ SCH (20:22)
[2018-09-28] MEDS: SENNOSIDES-DOCUSATE SODIUM 1 EACH TAB PO SCH (20:22)
[2018-09-29 01:22] VITALS: TEMP 97.8
[2018-09-29] MEDS: HYDROcodone/APAP 7.5-325MG 1 EACH TAB PO PRN (05:51)
[2018-09-29 07:42] LABS: Glucose,Whole Blood 65 mg/dL (75-99)
[2018-09-29 07:54] LABS: Glucose,Whole Blood 70 mg/dL (75-99)
[2018-09-29 08:11] LABS: Anisocytosis Slight; Basophils % (A) 0 %; Eosinophils # (A) 0.1 k/uL (0-0.7); Eosinophils % (A) 1 %; HCT 36.6 % (34.0-46.0); HGB 11.4 gm/dL (11.4-16.0); Hypochromasia Slight; Lymphocytes # (A) 1.1 k/uL (1.0-4.8); Lymphocytes % (A) 22 %; MCH 28.9 pg (25.0-35.0); MCHC 31.1 g/dL (31.0-37.0); MCV 92.8 fL (80.0-100.0); Monocytes # (A) 0.4 k/uL (0-1.0); Monocytes % (A) 7 %; Neutrophils # (A) 3.5 k/uL (1.3-7.7); Neutrophils % (A) 68 %; Platelet Count 192 k/uL (150-450); RBC 3.95 m/uL (3.80-5.40); RDW 16.2 % (11.5-15.5); WBC 5.1 k/uL (3.8-10.6)
[2018-09-29 08:15] LABS: Albumin 2.9 g/dL (3.5-5.0); Calcium 9.3 mg/dL (8.4-10.2); Total Bilirubin 0.7 mg/dL (0.2-1.3); Total Protein 6.1 g/dL (6.3-8.2)
[2018-09-29 08:18] LABS: Magnesium 1.8 mg/dL (1.6-2.3); Potassium 4.2 mmol/L (3.5-5.1)
[2018-09-29 08:22] VITALS: RESP 16
[2018-09-29 08:27] LABS: Glucose,Whole Blood 120 mg/dL (75-99)
[2018-09-29] MEDS: INSULIN ASPART (NovoLOG) 100 UNIT/ML VIAL SQ SCH ×2 (08:31→12:03)
[2018-09-29] MEDS: ASPIRIN 325 MG TAB PO SCH (08:36)
[2018-09-29] MEDS: NICOTINE 14MG/24HR PATCH TRANSDERM SCH (08:36)
[2018-09-29] MEDS: LOSARTAN 50 MG TAB PO SCH (08:36)
[2018-09-29] MEDS: CHOLECALCIFEROL 1,000 UNIT TAB PO SCH (08:36)
[2018-09-29] MEDS: CARVEDILOL 12.5 MG TAB PO SCH (08:37)
[2018-09-29] MEDS: FENOFIBRATE 54 MG TAB PO SCH (08:37)
[2018-09-29] MEDS: FAMOTIDINE 20 MG TAB PO SCH (08:37)
[2018-09-29] MEDS: ASCORBIC ACID 500 MG TAB PO SCH (08:39)
--- NOTE | 2018-09-29 08:46 | P.PN ---
Subjective Progress Note Date: 09/29/18 This is a 73-year-old female who is status post I&D of the left knee. This is postoperative day #3 and patient is seen and evaluated at bedside. Patient states that her pain is well controlled and she has been wearing her knee immobilizer. Patient denies any fever, chills or any new complaints. Objective - Vital Signs Vital signs: Vital Signs Temp 97.8 F 09/29/18 07:25 Pulse 67 09/29/18 08:33 Resp 16 09/29/18 07:25 BP 164/76 09/29/18 07:25 Pulse Ox 99 09/29/18 08:33 Intake & Output 09/28/18 09/29/18 09/29/18 18:59 06:59 18:59 Intake Total 236 Balance 236 Intake: Oral 236 Other: Voiding Method Toilet Diaper Incontinent # Voids 3 - Exam On exam patient is sitting comfortably in a chair in no acute distress. Patient is alert and oriented 3. Dressing is removed. Surgical clips are intact. There is no drainage from the incision. Eschar towards the center of the incision appears unchanged. Mild surrounding erythema. There is minimal swelling of the left knee. Patient is able to perform straight leg raise. Calf is soft and nontender to palpation. Patient has full foot and ankle motion without pain or difficulty. Sensation intact. Neurovascular status and circulatory status are intact. - Labs CBC & Chem 7: 09/29/18 07:07 09/29/18 07:07 Labs: Abnormal Lab Results - Last 24 Hours (Table) 09/28/18 09/28/18 09/28/18 Range/Units 11:54 17:06 19:55 RDW (11.5-15.5) % Chloride (98-107) mmol/L BUN (7-17) mg/dL Creatinine (0.52-1.04) mg/dL Glucose (74-99) mg/dL POC Glucose (mg/dL) 112 H 118 H 142 H (75-99) mg/dL Total Protein (6.3-8.2) g/dL Albumin (3.5-5.0) g/dL 09/29/18 09/29/18 09/29/18 Range/Units 07:07 07:07 07:38 RDW 16.2 H (11.5-15.5) % Chloride 114 H (98-107) mmol/L BUN 21 H (7-17) mg/dL Creatinine 1.14 H (0.52-1.04) mg/dL Glucose 53 L (74-99) mg/dL POC Glucose (mg/dL) 65 L (75-99) mg/dL Total Protein 6.1 L (6.3-8.2) g/dL Albumin 2.9 L (3.5-5.0) g/dL 09/29/18 09/29/18 Range/Units 07:53 08:25 RDW (11.5-15.5) % Chloride (98-107) mmol/L BUN (7-17) mg/dL Creatinine (0.52-1.04) mg/dL Glucose (74-99) mg/dL POC Glucose (mg/dL) 70 L 120 H (75-99) mg/dL Total Protein (6.3-8.2) g/dL Albumin (3.5-5.0) g/dL Microbiology - Last 24 Hours (Table) 09/26/18 15:03 Anaerobic Culture - Preliminary Knee - Left 09/26/18 15:03 Gram Stain - Final Knee - Left Wound Culture - Final 09/26/18 15:03 Anaerobic Culture - Preliminary Knee - Left 09/26/18 15:03 Gram Stain - Final Knee - Left Wound Culture - Final Assessment and Plan (1) Ulcer of left knee Current Visit: Yes Status: Acute Priority: Medium Code(s): L97.829 - NON- PRESSURE CHRONIC ULCER OTH PRT L LOW LEG W UNSP SEVERITY SNOMED Code(s): 383412997 (2) S/P tendon repair Current Visit: No Status: Acute Code(s): Z98.890 - OTHER SPECIFIED POSTPROCEDURAL STATES SNOMED Code(s): 940789554 (3) S/P total knee arthroplasty Current Visit: No Status: Acute Code(s): Z96.659 - PRESENCE OF UNSPECIFIED ARTIFICIAL KNEE JOINT SNOMED Code(s): 7036757223526 Plan: 1. Daily dressing changes. Keep the incision clean and dry. 2. Weightbearing as tolerated with a knee immobilizer. 3. Chicho to be removed in 10-14 days. 4. Appreciate input from internal medicine, infectious disease and vascular. 5. Cultures are negative. 6. Further recommendations pending patient's clinical course.
[2018-09-29 11:47] LABS: Glucose,Whole Blood 174 mg/dL (75-99)
[2018-09-29 14:21] VITALS: BP 139/69; PULSE 66
--- NOTE | 2018-09-29 14:21 | P.DS ---
Providers Date of admission: 09/25/18 12:56 Expected date of discharge: 09/29/18 Attending physician: Vincenzo Lara Consults: 09/25/18 10:34 Consult Physician Routine Consulting Provider: Pastora Frazier Consult Reason/Comments: medical management Do you want consulting provider notified?: Yes 09/25/18 10:40 Consult Physician Routine Consulting Provider: Tommie Martinez Consult Reason/Comments: left knee infection. Do you want consulting provider notified?: Yes 09/26/18 23:51 Consult Physician Routine Consulting Provider: Vignesh Harrison Consult Reason/Comments: vascular disease with recent TKA failing wound Do you want consulting provider notified?: Yes, Notify in am Primary care physician: Pastora Frazier - Discharge Diagnosis(es) (1) Ulcer of left knee Current Visit: Yes Status: Acute Priority: Medium (2) S/P tendon repair Current Visit: No Status: Acute (3) S/P total knee arthroplasty Current Visit: No Status: Acute Hospital Course: This is a 73-year-old female who underwent left total knee arthroplasty on 08/05/2018 along with repair of the patellar retinaculum on 09/09/2018. Patient developed redness around her incision site which did not improve with outpatient antibiotics. After discussion and consideration patient elects to proceed with irrigation and debridement of the left knee. The patient is seen preoperatively by Dr. Lara and cleared for surgery. Patient is admitted to [facility] on 09/25/2018 and irrigation and debridement of the left knee is performed on 09/26/2018. The procedures performed without complication or sequelae. The patient is doing well postoperatively. Labs and vital signs are stable on day of discharge. Cultures are found to be negative. On day of discharge patient's knee incision is healing. There is an eschar present with mild surrounding erythema. There is no drainage noted at this time. There is minimal soft tissue swelling to the left knee. Patient has full foot and ankle motion without difficulty or pain. Neurovascular status to the left lower extremity is intact. Patient is discharged home in good condition. Please see med rec for accurate list of home medications. Plan - Discharge Summary Discharge Rx Participant: No New Discharge Prescriptions: New Aspirin 325 mg PO BID #28 tab HYDROcodone/APAP 7.5-325MG [[place] 7.5-325] 1 - 2 tab PO Q6H PRN #30 tab PRN Reason: Pain Sennosides [Senokot] 1 tab PO BID #60 tablet Continue ALPRAZolam [Xanax] 0.25 mg PO Q8HR PRN PRN Reason: Anxiety Ascorbic Acid [Vitamin C] 500 mg PO MOWEFR Fenofibrate [Lofibra] 54 mg PO DAILY Ubidecarenone [Co Q-10] 200 mg PO DAILY [place]-3 Fatty Acids/Fish Oil [Fish Oil 1,000 mg Softgel] 1 cap PO DAILY Losartan Potassium 50 mg PO QAM Fluticasone/Vilanterol [Breo Ellipta 200-25 Mcg INH] 1 inhalation INHALATION DAILY PRN PRN Reason: Shortness Of Breath Carvedilol 25 mg PO BID Cholecalciferol [Vitamin D3 (25 Mcg = 1000 Iu)] 2,000 mg PO DAILY Albuterol Inhaler [Ventolin Hfa Inhaler] 1 - 2 puff INHALATION Q6HR PRN PRN Reason: Shortness Of Breath Red Yeast Rice 600 mg PO DAILY Ipratropium-Albuterol Nebulize [Duoneb 0.5 mg-3 mg/3 ml Soln] 3 ml INHALATION RT-QID PRN PRN Reason: sob Aspirin 325 mg PO BID #14 tab HYDROcodone/APAP 5-325MG [[place] 5-325] 1 - 2 tab PO Q6HR PRN #30 tab PRN Reason: Pain Sennosides [Senokot] 1 tab PO BID #60 tablet Changed Cephalexin [Keflex] 500 mg PO TID #21 cap Insulin Detemir (Levemir) [Levemir] 8 unit SQ HS #0 Discontinued INSULIN LISPRO (humaLOG) [humaLOG] 7 units SQ AC-TID Discharge Medication List ALPRAZolam [Xanax] 0.25 mg PO Q8HR PRN 10/05/17 [History] Ascorbic Acid [Vitamin C] 500 mg PO MOWEFR 10/05/17 [History] Carvedilol 25 mg PO BID 10/05/17 [History] Fenofibrate [Lofibra] 54 mg PO DAILY 10/05/17 [History] Fluticasone/Vilanterol [Breo Ellipta 200-25 Mcg INH] 1 inhalation INHALATION DAILY PRN 10/05/17 [History] Losartan Potassium 50 mg PO QAM 10/05/17 [History] [place]-3 Fatty Acids/Fish Oil [Fish Oil 1,000 mg Softgel] 1 cap PO DAILY 10/05/17 [History] Ubidecarenone [Co Q-10] 200 mg PO DAILY 10/05/17 [History] Albuterol Inhaler [Ventolin Hfa Inhaler] 1 - 2 puff INHALATION Q6HR PRN 07/24/18 [History] Cholecalciferol [Vitamin D3 (25 Mcg = 1000 Iu)] 2,000 mg PO DAILY 07/24/18 [History] Ipratropium-Albuterol Nebulize [Duoneb 0.5 mg-3 mg/3 ml Soln] 3 ml INHALATION RT-QID PRN 07/24/18 [History] Red Yeast Rice 600 mg PO DAILY 07/24/18 [History] Aspirin 325 mg PO BID #14 tab 09/11/18 [Rx] HYDROcodone/APAP 5-325MG [[place] 5-325] 1 - 2 tab PO Q6HR PRN #30 tab 09/11/18 [Rx] Sennosides [Senokot] 1 tab PO BID #60 tablet 09/11/18 [Rx] Aspirin 325 mg PO BID #28 tab 09/29/18 [Rx] Cephalexin [Keflex] 500 mg PO TID #21 cap 09/29/18 [Rx] HYDROcodone/APAP 7.5-325MG [[place] 7.5-325] 1 - 2 tab PO Q6H PRN #30 tab 09/29/18 [Rx] Insulin Detemir (Levemir) [Levemir] 8 unit SQ HS #0 09/29/18 [Rx] Sennosides [Senokot] 1 tab PO BID #60 tablet 09/29/18 [Rx] Follow up Appointment(s)/Referral(s): Abel Cleveland MD [STAFF PHYSICIAN] - 2 Weeks Pastora Frazier MD [Primary Care Provider] - 1 Week [facility], [NON-STAFF] - As Needed Vincenzo Lara DO [Doctor of Osteopathic Medicine] - 1 Week Patient Instructions/Handouts: Incision and Drainage (DC) Activity/Diet/Wound Care/Special Instructions: Maintain knee immobilizer at all time except for hygiene. Please take medications as prescribed. Daily dressing changes. Chicho to be removed in 10-14 days. Please follow up with [facility] and call with any questions or concerns. [phone]. Discharge Disposition: HOME WITH HOME HEALTH SERVICES
[2018-09-29] MEDS ORDERED: CEPHALEXIN 500 MG CAP PO SCH ×2 (16:00→21:00)
[2018-09-29] MEDS ORDERED: INSULIN DETEMIR (LEVEMIR) 100 UNIT/ML SYR SQ SCH (21:00)
--- NOTE | 2018-10-01 07:25 | CDI ---
Documentation Clarification Form Date: 10/01/18 From: Narcisa Sapp Phone: If questions call Anna Sloan @ [phone], Hours-8:30 am & 5 pm M- F Admit Date: 09/25/2018 12:56:00 PM Patient Name: Glenny Rodriguez Visit Number: [id number] Discharge Date: 09/29/2018 3:30:00 PM ATTENTION: The Clinical Documentation Specialists (CDI) and [facility] Coding Staff appreciate your assistance in clarifying documentation. Please respond to the clarification below the line at the bottom and electronically sign. The CDI & [facility] Coding staff will review the response and follow-up if needed. Please note: Queries are made part of the Legal Health Record. If you have any questions, please contact the author of this message via ITS. Dr. Vincenzo Lara Please specify the type of surgical site infection: Superficial incisional surgical site Deep incisional surgical site Left knee prosthesis Other (please specify) Clinically unable to determine Unknown 2. Please clarify associated organism if known Superficial incisional surgical site MTDD
--- NOTE | 2018-10-02 11:17 | P.PN ---
Subjective Progress Note Date: 09/29/18 This is a 73-year-old female patient of Dr. Frazier with past history for COPD, diabetes mellitus type 2 insulin requiring, hypertension, hyperlipidemia, generalized osteoarthritis, generalized anxiety disorder. Patient has history of osteoarthritis and was recently admitted under the care of Dr. Lara status post left total knee arthroplasty on August 05. Patient did not have any postop complications and was discharged home the following day with [facility]. Patient was doing well with physical therapy the first 2 weeks then developed discomfort and inability lift her leg up and not been able to participate in any physical therapy. Patient was seen Dr. Lara and was brought back in the hospital on September 09 and underwent repair of patellar retinaculum tear and rupture of the quadriceps tendon. She did relatively well immediately but developed some discoloration to the anterior aspect of the knee. She was seen by the home care nurse and then evaluated by her surgeon. Because of the marked abnormality she was brought in the hospital. Plan is for surgical I&D today. Patient had a low blood sugar this morning of 42 for which scheduled NovoLog 7 units with meals will be discontinued, long acting insulin will be decreased to 12 units from 23. IV fluids will be changed to D5 half normal saline at 75 mL per hour. Patient's last hemoglobin A1c was 5.9. Patient stat es that she has not been eating much due to lack of appetite. Regarding oxygen, patient states she uses 3 L at bedtime only. She denies history of obstructive sleep apnea. Patient denies having any chest pain, shortness of breath, abdominal pain, nausea or vomiting, no diarrhea. 09/29: Patient has been hemodynamically stable over the weekend and afebrile. She denies any new complaints. No chest pain, shortness of breath, nausea or vomiting. Patient has been seen by Dr. Harrison with recommendations for an opinion from plastic surgery to determine a flap can be created over the patella. Cultures are showing no growth. Patient has been off Since Saturday. Blood Sugar This Morning Was Again Low at 53 and Levemir Will Be Decreased from 12 Units to 6 Units. Her has been admitted to the hospital over the weekend for possible pneumonia and is scheduled for discharge home today. Patient is anxious to go home today. Antibiotics have been clarified with Dr. Martinez. Blood sugars remain on the low side so we will make adjustments for her home medications as well. Medication reconciliation has been completed.. Objective - Vital Signs Vital signs: Vital Signs Temp 97.8 F 09/29/18 07:25 Pulse 67 09/29/18 08:33 Resp 16 09/29/18 07:25 BP 164/76 09/29/18 07:25 Pulse Ox 99 09/29/18 08:33 Intake & Output 09/28/18 09/29/18 09/29/18 18:59 06:59 18:59 Intake Total 236 Balance 236 Intake: Oral 236 Other: Voiding Method Toilet Diaper Incontinent # Voids 3 - Exam Review of Systems Constitutional: Denies anorexia, Denies chills, Denies fatigue, Denies fever, Denies lethargy, Denies malaise, Denies poor appetite, Denies weakness Ears, nose, mouth and throat: Denies dysphagia, Denies nasal congestion, Denies nasal discharge, Denies vertigo Cardiovascular: Denies chest pain, Denies decreased exercise tolerance, Denies dyspnea on exertion, Denies edema, Denies leg edema, Denies lightheadedness, Denies syncope Respiratory: Reports home oxygen, Denies cough, Denies cough with sputum, Denies dyspnea, Denies excessive sputum, Denies hemoptysis, Denies respiratory infections, Denies snoring Gastrointestinal: Denies abdominal pain, Denies loss of appetite, Denies nausea, Denies vomiting Genitourinary: Denies dysuria, Denies urgency, Denies urinary frequency Musculoskeletal: Reports gait dysfunction, Denies frequent falls, Denies muscle weakness, Denies myalgias Musculoskeletal: left: knee pain, knee stiffness, knee swelling Integumentary: Reports darkening of skin, Reports wounds, Denies pruritus, Denies rash Neurological: Reports gait dysfunction, Denies aphasia, Denies change in mentation, Denies change in speech, Denies seizures, Denies syncope Psychiatric: Denies anxiety, Denies depression Endocrine: Denies fatigue, Denies weight change, reports abnormal blood sugar Gen: This is a 73-year-old female. Patient is resting bed appears to be comfortable HEENT: Head is atraumatic, normocephalic. Pupils equal, round. Sclerae is anicteric. NECK: Supple. No JVD. No lymphadenopathy. No thyromegaly. LUNGS: Clear to auscultation. No wheezes or rhonchi. No intercostal retractions. HEART: Regular rate and rhythm. No murmur. ABDOMEN: Soft. Bowel sounds are present. No masses. No tenderness. EXTREMITIES: No pedal edema. No calf tenderness. Large dressing and immobilizer on the left knee. NEUROLOGICAL: Patient is awake, alert and oriented x3. Cranial nerves 2 through 12 are grossly intact. - Labs CBC & Chem 7: 09/29/18 07:07 09/29/18 07:07 Labs: Abnormal Lab Results - Last 24 Hours (Table) 09/28/18 09/28/18 09/28/18 Range/Units 11:54 17:06 19:55 RDW (11.5-15.5) % Chloride (98-107) mmol/L BUN (7-17) mg/dL Creatinine (0.52-1.04) mg/dL Glucose (74-99) mg/dL POC Glucose (mg/dL) 112 H 118 H 142 H (75-99) mg/dL Total Protein (6.3-8.2) g/dL Albumin (3.5-5.0) g/dL 09/29/18 09/29/18 09/29/18 Range/Units 07:07 07:07 07:38 RDW 16.2 H (11.5-15.5) % Chloride 114 H (98-107) mmol/L BUN 21 H (7-17) mg/dL Creatinine 1.14 H (0.52-1.04) mg/dL Glucose 53 L (74-99) mg/dL POC Glucose (mg/dL) 65 L (75-99) mg/dL Total Protein 6.1 L (6.3-8.2) g/dL Albumin 2.9 L (3.5-5.0) g/dL 09/29/18 09/29/18 Range/Units 07:53 08:25 RDW (11.5-15.5) % Chloride (98-107) mmol/L BUN (7-17) mg/dL Creatinine (0.52-1.04) mg/dL Glucose (74-99) mg/dL POC Glucose (mg/dL) 70 L 120 H (75-99) mg/dL Total Protein (6.3-8.2) g/dL Albumin (3.5-5.0) g/dL Microbiology - Last 24 Hours (Table) 09/26/18 15:03 Anaerobic Culture - Preliminary Knee - Left 09/26/18 15:03 Gram Stain - Final Knee - Left Wound Culture - Final 09/26/18 15:03 Anaerobic Culture - Preliminary Knee - Left 09/26/18 15:03 Gram Stain - Final Knee - Left Wound Culture - Final Assessment and Plan Plan: 1. Surgical wound ulceration and eschar with flap necrosis at the previous left knee total arthroplasty status post patellar retinaculum and quadriceps tendon repair. Status post I&D. Dr. Martinez is following and patient is currently on Kefzol. IV Kefzol transitioned to oral Keflex for home. 2. Diabetes mellitus type 2, insulin requiring, uncontrolled with hypoglycemia. Levemir decreased to 6 units, NovoLog scale. 3. Hypertension. Continue Coreg 25 mg twice daily, losartan 50 mg daily. 4. Hyperlipidemia. Continue fenofibrate, omega-3. 5. Generalized anxiety disorder. Continue Xanax or 0.25 mg every 8 hours as needed. 6. History of bowel resection, stable. 7. Tobacco use and dependence. Patient continues to smoke off and on. Nicot ine patch. 8. DVT prophylaxis. Aspirin 325 mg twice daily. 9. GI prophylaxis. Pepcid. Discharge plan: Home with [facility] Impression and plan of care have been directed as dictated by the signing physician. Annie Ba nurse practitioner acting as scribe for signing physician.
== END 2018-09-29 15:30 | disposition home health service (06) | DRG 857 ==
LOC: 4SSUR 12:56
PROVIDERS: ADMIT Orthopaedic Surgery; ATTEND Orthopaedic Surgery
PROC: 0S9D0ZZ Drainage of Left Knee Joint, Open Approach (ICD-10-PCS; principal; 2018-09-26 13:45)
DX: T81.41XA Infection following a procedure, superficial incisional surgical site, initial encounter (principal); L03.116 Cellulitis of left lower limb; L97.829 Non-pressure chronic ulcer of other part of left lower leg with unspecified severity; N39.0 Urinary tract infection, site not specified; J44.1 Chronic obstructive pulmonary disease with (acute) exacerbation; E11.51 Type 2 diabetes mellitus with diabetic peripheral angiopathy without gangrene; E11.649 Type 2 diabetes mellitus with hypoglycemia without coma; I65.29 Occlusion and stenosis of unspecified carotid artery; M15.9 Polyosteoarthritis, unspecified; I10 Essential (primary) hypertension; E78.5 Hyperlipidemia, unspecified; F41.1 Generalized anxiety disorder; Z99.81 Dependence on supplemental oxygen; Z79.82 Long term (current) use of aspirin; Z79.4 Long term (current) use of insulin; Z79.51 Long term (current) use of inhaled steroids; Z79.899 Other long term (current) drug therapy; Z71.6 Tobacco abuse counseling; Z87.891 Personal history of nicotine dependence; Z87.01 Personal history of pneumonia (recurrent); Z90.710 Acquired absence of both cervix and uterus; Z98.890 Other specified postprocedural states; Y83.6 Removal of other organ (partial) (total) as the cause of abnormal reaction of the patient, or of later complication, without mention of misadventure at the time of the procedure; Z80.6 Family history of leukemia; Z80.1 Family history of malignant neoplasm of trachea, bronchus and lung; Z82.49 Family history of ischemic heart disease and other diseases of the circulatory system
CPT/HCPCS: 80053; 83735; 85025; 85610; 85652; 86140; 87070; 87075; 87205

== ENCOUNTER → 2018-10-16 | Outpatient (CLI) | payer MEDICARE ==
--- NOTE | 2018-10-16 16:03 | US ---
LOWER EXTREMITY VENOUS INSUFFICIENCY SIDE PERFORMED: bilateral 1) Color flow is present and patency is documented in the following vessels. No DVT or SVT is noted . EIV Common Femoral Vein Deep Femoral Vein Femoral Vein Popliteal Vein Proximal Calf Veins Greater Saph Vein Upper Small Saph Vein 2) There is venous reflux noted at the following venous levels: no reflux Normal study, no reflux noted. IMPRESSION: No sonographic evidence of deep venous thrombosis, superficial venous thrombosis, nor coleen ous reflux of the visualized bilateral lower extremities.
== END | disposition home or self-care (01) ==
LOC: RADUSWWP 13:47
PROVIDERS: ATTEND Internal Medicine Infectious Disease
DX: E11.621 Type 2 diabetes mellitus with foot ulcer (principal); M79.605 Pain in left leg; L97.509 Non-pressure chronic ulcer of other part of unspecified foot with unspecified severity
CPT/HCPCS: 93923; 93970

== ENCOUNTER 2018-10-21 16:10 | Inpatient (IN) | payer MEDICARE ==
[2018-10-21] MEDS ORDERED: ONDANSETRON 4 MG/2 ML VIAL IVP STA (17:04)
[2018-10-21] MEDS ORDERED: SODIUM CHLORIDE 0.9% 1,000 ML IV STA (17:04)
--- NOTE | 2018-10-21 17:20 | ED ---
Weakness HPI - General Chief complaint: Weakness Stated complaint: vomiting, dehydrated Time Seen by Provider: 10/21/18 16:28 Source: patient, family Mode of arrival: wheelchair Limitations: no limitations - History of Present Illness Initial comments: The patient is a 73-year-old female who presents emergency department with complaint of generalized weakness, nausea and vomiting. She reports that the symptoms have been going on for the past 3 days. She has had several episodes of nonbilious, nonbloody vomiting daily. States that she is able to hold down water however has no appetite and cannot hold down any foods. She denies any sick contacts, recent travel or eating any tainted foods. No recent antibiotic use. She admits to a queasy stomach however denies any abdominal pain. Denies any changes in her bowel movements including diarrhea, constipation, melanotic stools or hematochezia. She denies any changes in her urination to include dysuria, hematuria or difficulty voiding. She denies any chest pain or shortness of breath. She denies alcohol or NSAID use. No reported fevers or chills. The patient is scheduled for surgery on Saturday with Dr. Martinez at [facility]. 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 Dr. Martinez will be performing a skin graft because of her chronic open wound. Patient denies any unilateral numbness or weakness. No numbness or tingling in her extremities. She denies headaches, neck pain or stiffness. There are no alleviating, precipitating or modifying factors - Related Data Home Medications Medication Instructions Recorded Confirmed ALPRAZolam [Xanax] 0.25 mg PO Q8H PRN 10/05/17 10/21/18 Ascorbic Acid [Vitamin C] 500 mg PO MOWEFR 10/05/17 10/21/18 Carvedilol 25 mg PO BID 10/05/17 10/21/18 Fenofibrate [Lofibra] 54 mg PO DAILY 10/05/17 10/21/18 Losartan Potassium 50 mg PO DAILY 10/05/17 10/21/18 Sutton-3 Fatty Acids/Fish Oil [Fish 1 cap PO DAILY 10/05/17 10/21/18 Oil 1,000 mg Softgel] Ubidecarenone [Co Q-10] 200 mg PO DAILY 10/05/17 10/21/18 Cholecalciferol [Vitamin D3 (25 2,000 mg PO DAILY 07/24/18 10/21/18 Mcg = 1000 Iu)] Red Yeast Rice 600 mg PO DAILY 07/24/18 10/21/18 Aspirin EC [Ecotrin Low Dose] 81 mg PO HS 10/21/18 10/21/18 Atorvastatin Calcium [Lipitor] 20 mg PO HS 10/21/18 10/21/18 Insulin Lispro [humaLOG Kwikpen] See Protocol SQ AC-TID 10/21/18 10/21/18 Previous Rx's Medication Instructions Recorded Insulin Detemir (Levemir) [Levemir] 11 unit SQ HS #0 10/24/18 Ondansetron [Zofran] 4 mg PO Q8HR PRN #30 tab 10/24/18 Allergies Allergy/AdvReac Type Severity Reaction Status Date / Time No Known Allergies Allergy Verified 10/21/18 16:58 Review of Systems ROS Statement: Those systems with pertinent positive or pertinent negative responses have been documented in the HPI. ROS Other: All systems not noted in ROS Statement are negative. Past Medical History Past Medical History: COPD, Diabetes Mellitus, Hyperlipidemia, Hypertension, Pneumonia Additional Past Medical History / Comment(s): currently being treated for UTI History of Any Multi-Drug Resistant Organisms: None Reported Past Surgical History: Bowel Resection, Hysterectomy, Joint Replacement, Orthopedic Surgery Additional Past Surgical History / Comment(s): colon resection with ileost luis enrique/later reversal, surgery for fx left femur, left knee replacement 07/2018, Past Anesthesia/Blood Transfusion Reactions: No Reported Reaction Past Psychological History: No Psychological Hx Reported Smoking Status: Former smoker Past Alcohol Use History: None Reported Past Drug Use History: None Reported - Past Family History Mother Additional Family Medical History / Comment(s): heart problems Father Family Medical History: Cancer Additional Family Medical History / Comment(s): lung Sister(s) Family Medical History: Cancer Additional Family Medical History / Comment(s): leukemia General Exam Limitations: no limitations General appearance: alert, in no apparent distress, other (dehydrated) Head exam: Present: atraumatic, normocephalic, normal inspection Eye exam: Present: normal appearance, PERRL, EOMI. Absent: scleral icterus, conjunctival injection, periorbital swelling ENT exam: Present: normal exam, mucous membranes dry Neck exam: Present: normal inspection. Absent: tenderness, meningismus, lymphadenopathy Respiratory exam: Present: normal lung sounds bilaterally. Absent: respiratory distress, wheezes, rales, rhonchi, stridor Cardiovascular Exam: Present: regular rate, normal rhythm, normal heart sounds. Absent: systolic murmur, diastolic murmur, rubs, gallop, clicks GI/Abdominal exam: Present: soft, normal bowel sounds. Absent: distended, tenderness, guarding, rebound, rigid Extremities exam: Present: full ROM, normal capillary refill, other (Open wound to the left knee. No pustular drainage or surrounding erythema. No joint swelling). Absent: tenderness, pedal edema, joint swelling, calf tenderness Back exam: Present: normal inspection Neurological exam: Present: alert, oriented X3, CN II-XII intact Psychiatric exam: Present: normal affect, normal mood Skin exam: Present: warm, dry, intact, normal color. Absent: rash Course Vital Signs 10/21/18 10/21/18 10/21/18 16:19 18:30 19:46 Temperature 98.3 F 98.3 F Pulse Rate 68 80 80 Respiratory 18 22 14 Rate Blood Pressure 149/72 182/76 175/77 O2 Sat by Pulse 96 97 95 Oximetry EKG Findings - EKG Comments: EKG Findings:: EKG demonstrates a normal sinus rhythm with a ventricular rate of 71. NM interval 154. QRS 70. QTc 454. There is Q-wave in V1. No acute ST segment elevations or depressions concerning for ischemic changes. Medical Decision Making - Medical Decision Making The patient was placed into room 9. She is hooked up to continuous pulse ox and cardiac monitoring. A 12-lead EKG is performed which demonstrates a normal sinus rhythm. We did obtain IV access. The patient was given 4 mg of Zofran for her nausea. Laboratory studies were conducted and the patient was sent for CT for abdomen and pelvis. Because of the patient's elevated lipase and nausea and vomiting, I did recommend a gallbladder ultrasound. The patient did agree to this. Upon return the results, I did discuss them with the patient. She does have enlargement in her aortic aneurysm. She has no findings of a bowel obstruction. The patient states she feels improved at this time and would like to go home. I did recommend hospital admission due to her acute kidney injury with her creatinine of 1.5 from 1.1 previously this month. The patient did agree. I did call discuss case with Dr. Tomas. She did accept the admission she is recommending evaluation by vascular surgery as well as general surgery. I will order a lipase for the morning. The patient received fluid hydration and antiemetics. The patient remained in stable condition was transported to floor - Differential Diagnosis acute nausea/vomiting, abdominal anerysm, gloria, gallstone pancreatitis - Lab Data Result diagrams: 10/23/18 07:50 10/23/18 07:50 Lab Results 10/21/18 10/21/18 10/21/18 Range/Units 17:20 17:20 17:20 WBC 5.8 (3.8-10.6) k/uL RBC 4.37 (3.80-5.40) m/uL Hgb 12.6 (11.4-16.0) gm/dL Hct 40.4 (34.0-46.0) % MCV 92.5 (80.0-100.0) fL MCH 28.9 (25.0-35.0) pg MCHC 31.3 (31.0-37.0) g/dL RDW 15.6 H (11.5-15.5) % Plt Count 238 (150-450) k/uL Neutrophils % 82 % Lymphocytes % 11 % Monocytes % 4 % Eosinophils % 0 % Basophils % 1 % Neutrophils # 4.8 (1.3-7.7) k/uL Lymphocytes # 0.6 L (1.0-4.8) k/uL Monocytes # 0.3 (0-1.0) k/uL Eosinophils # 0.0 (0-0.7) k/uL Basophils # 0.0 (0-0.2) k/uL Hypochromasia Slight Anisocytosis Sodium 141 (137-145) mmol/L Potassium 4.5 (3.5-5.1) mmol/L Chloride 112 H (98-107) mmol/L Carbon Dioxide 20 L (22-30) mmol/L Anion Gap 9 mmol/L BUN 30 H (7-17) mg/dL Creatinine 1.50 H (0.52-1.04) mg/dL Est GFR (CKD-EPI)AfAm 40 (>60 ml/min/1.73 sqM) Est GFR (CKD-EPI)NonAf 34 (>60 ml/min/1.73 sqM) Glucose 130 H (74-99) mg/dL POC Glucose (mg/dL) (75-99) mg/dL POC Glu Quality Assurance Test Program Manager ID Plasma Lactic Acid Harshal 0.9 (0.7-2.0) mmol/L Calcium 9.7 (8.4-10.2) mg/dL Total Bilirubin 0.6 (0.2-1.3) mg/dL AST 18 (14-36) U/L ALT 12 (9-52) U/L Alkaline Phosphatase 93 (38-126) U/L Total Protein 7.0 (6.3-8.2) g/dL Albumin 3.5 (3.5-5.0) g/dL Lipase 543 H (23-300) U/L Urine Color Urine Appearance (Clear) Urine pH (5.0-8.0) Ur Specific [place] (1.001-1.035) Urine Protein (Negative) Urine Glucose (UA) (Negative) Urine Ketones (Negative) Urine Blood (Negative) Urine Nitrite (Negative) Urine Bilirubin (Negative) Urine Urobilinogen (<2.0) mg/dL Ur Leukocyte Esterase (Negative) 10/21/18 10/21/18 10/22/18 Range/Units 18:00 20:22 02:10 WBC (3.8-10.6) k/uL RBC (3.80-5.40) m/uL Hgb (11.4-16.0) gm/dL Hct (34.0-46.0) % MCV (80.0-100.0) fL MCH (25.0-35.0) pg MCHC (31.0-37.0) g/dL RDW (11.5-15.5) % Plt Count (150-450) k/uL Neutrophils % % Lymphocytes % % Monocytes % % Eosinophils % % Basophils % % Neutrophils # (1.3-7.7) k/uL Lymphocytes # (1.0-4.8) k/uL Monocytes # (0-1.0) k/uL Eosinophils # (0-0.7) k/uL Basophils # (0-0.2) k/uL Hypochromasia Anisocytosis Sodium (137-145) mmol/L Potassium (3.5-5.1) mmol/L Chloride (98-107) mmol/L Carbon Dioxide (22-30) mmol/L Anion Gap mmol/L BUN (7-17) mg/dL Creatinine (0.52-1.04) mg/dL Est GFR (CKD-EPI)AfAm (>60 ml/min/1.73 sqM) Est GFR (CKD-EPI)NonAf (>60 ml/min/1.73 sqM) Glucose (74-99) mg/dL POC Glucose (mg/dL) 122 H 137 H (75-99) mg/dL POC Glu Quality Assurance Test Program Manager ID Jesenia Dukes Melinda Plasma Lactic Acid Harshal (0.7-2.0) mmol/L Calcium (8.4-10.2) mg/dL Total Bilirubin (0.2-1.3) mg/dL AST (14-36) U/L ALT (9-52) U/L Alkaline Phosphatase (38-126) U/L Total Protein (6.3-8.2) g/dL Albumin (3.5-5.0) g/dL Lipase (23-300) U/L Urine Color Yellow Urine Appearance Clear (Clear) Urine pH 5.0 (5.0-8.0) Ur Specific [place] 1.022 (1.001-1.035) Urine Protein Trace H (Negative) Urine Glucose (UA) Negative (Negative) Urine Ketones 1+ H (Negative) Urine Blood Negative (Negative) Urine Nitrite Negative (Negative) Urine Bilirubin Negative (Negative) Urine Urobilinogen 2.0 (<2.0) mg/dL Ur Leukocyte Esterase Negative (Negative) 10/22/18 10/22/18 10/22/18 Range/Units 06:57 07:47 07:47 WBC 7.0 (3.8-10.6) k/uL RBC 4.08 (3.80-5.40) m/uL Hgb 12.0 (11.4-16.0) gm/dL Hct 38.5 (34.0-46.0) % MCV 94.3 (80.0-100.0) fL MCH 29.3 (25.0-35.0) pg MCHC 31.1 (31.0-37.0) g/dL RDW 16.2 H (11.5-15.5) % Plt Count 231 (150-450) k/uL Neutrophils % 79 % Lymphocytes % 12 % Monocytes % 7 % Eosinophils % 0 % Basophils % 0 % Neutrophils # 5.5 (1.3-7.7) k/uL Lymphocytes # 0.8 L (1.0-4.8) k/uL Monocytes # 0.5 (0-1.0) k/uL Eosinophils # 0.0 (0-0.7) k/uL Basophils # 0.0 (0-0.2) k/uL Hypochromasia Moderate Anisocytosis Slight Sodium 142 (137-145) mmol/L Potassium 4.0 (3.5-5.1) mmol/L Chloride 112 H (98-107) mmol/L Carbon Dioxide 19 L (22-30) mmol/L Anion Gap 11 mmol/L BUN 20 H (7-17) mg/dL Creatinine 1.19 H (0.52-1.04) mg/dL Est GFR (CKD-EPI)AfAm 52 (>60 ml/min/1.73 sqM) Est GFR (CKD-EPI)NonAf 45 (>60 ml/min/1.73 sqM) Glucose 104 H (74-99) mg/dL POC Glucose (mg/dL) 108 H (75-99) mg/dL POC Glu Quality Assurance Test Program Manager ID Cook, Leigha Plasma Lactic Acid Harshal (0.7-2.0) mmol/L Calcium 9.1 (8.4-10.2) mg/dL Total Bilirubin (0.2-1.3) mg/dL AST (14-36) U/L ALT (9-52) U/L Alkaline Phosphatase (38-126) U/L Total Protein (6.3-8.2) g/dL Albumin (3.5-5.0) g/dL Lipase 1592 H (23-300) U/L Urine Color Urine Appearance (Clear) Urine pH (5.0-8.0) Ur Specific [place] (1.001-1.035) Urine Protein (Negative) Urine Glucose (UA) (Negative) Urine Ketones (Negative) Urine Blood (Negative) Urine Nitrite (Negative) Urine Bilirubin (Negative) Urine Urobilinogen (<2.0) mg/dL Ur Leukocyte Esterase (Negative) 10/22/18 Range/Units 12:29 WBC (3.8-10.6) k/uL RBC (3.80-5.40) m/uL Hgb (11.4-16.0) gm/dL Hct (34.0-46.0) % MCV (80.0-100.0) fL MCH (25.0-35.0) pg MCHC (31.0-37.0) g/dL RDW (11.5-15.5) % Plt Count (150-450) k/uL Neutrophils % % Lymphocytes % % Monocytes % % Eosinophils % % Basophils % % Neutrophils # (1.3-7.7) k/uL Lymphocytes # (1.0-4.8) k/uL Monocytes # (0-1.0) k/uL Eosinophils # (0-0.7) k/uL Basophils # (0-0.2) k/uL Hypochromasia Anisocytosis Sodium (137-145) mmol/L Potassium (3.5-5.1) mmol/L Chloride (98-107) mmol/L Carbon Dioxide (22-30) mmol/L Anion Gap mmol/L BUN (7-17) mg/dL Creatinine (0.52-1.04) mg/dL Est GFR (CKD-EPI)AfAm (>60 ml/min/1.73 sqM) Est GFR (CKD-EPI)NonAf (>60 ml/min/1.73 sqM) Glucose (74-99) mg/dL POC Glucose (mg/dL) 103 H (75-99) mg/dL POC Glu Quality Assurance Test Program Manager ID Manoj, Leigha Plasma Lactic Acid Harshal (0.7-2.0) mmol/L Calcium (8.4-10.2) mg/dL Total Bilirubin (0.2-1.3) mg/dL AST (14-36) U/L ALT (9-52) U/L Alkaline Phosphatase (38-126) U/L Total Protein (6.3-8.2) g/dL Albumin (3.5-5.0) g/dL Lipase (23-300) U/L Urine Color Urine Appearance (Clear) Urine pH (5.0-8.0) Ur Specific [place] (1.001-1.035) Urine Protein (Negative) Urine Glucose (UA) (Negative) Urine Ketones (Negative) Urine Blood (Negative) Urine Nitrite (Negative) Urine Bilirubin (Negative) Urine Urobilinogen (<2.0) mg/dL Ur Leukocyte Esterase (Negative) Disposition Clinical Impression: Acute kidney failure, Dehydration, Nausea & vomiting Disposition: ADMITTED IP TO THIS [facility] Condition: Good Is patient prescribed a controlled substance at d/c from ED?: No Decision to Admit Reason: Admit from EC Decision Date: 10/21/18 Decision Time: 19:59
[2018-10-21 17:37] LABS: Basophils % (A) 1 %; Eosinophils % (A) 0 %; HCT 40.4 % (34.0-46.0); HGB 12.6 gm/dL (11.4-16.0); Hypochromasia Slight; Lymphocytes # (A) 0.6 k/uL (1.0-4.8); Lymphocytes % (A) 11 %; MCH 28.9 pg (25.0-35.0); MCHC 31.3 g/dL (31.0-37.0); MCV 92.5 fL (80.0-100.0); Mean Platelet Volume 7.5; Monocytes # (A) 0.3 k/uL (0-1.0); Monocytes % (A) 4 %; Neutrophils # (A) 4.8 k/uL (1.3-7.7); Neutrophils % (A) 82 %; Platelet Count 238 k/uL (150-450); RBC 4.37 m/uL (3.80-5.40); RDW 15.6 % (11.5-15.5); WBC 5.8 k/uL (3.8-10.6)
[2018-10-21 17:40] LABS: Albumin 3.5 g/dL (3.5-5.0); Calcium 9.7 mg/dL (8.4-10.2); Potassium 4.5 mmol/L (3.5-5.1); Total Bilirubin 0.6 mg/dL (0.2-1.3)
[2018-10-21 18:40] LABS: Appearance,Urine Clear (Clear); Bilirubin,Urine Negative (Negative); Blood,Urine Negative (Negative); Color,Urine Yellow; Glucose,Urine (UA) Negative (Negative); Ketones,Urine 1+ (Negative); Leukocyte Esterase,Urine Negative (Negative); Nitrite,Urine Negative (Negative); Protein,Urine Trace (Negative); Specific Gravity,Urine 1.022 (1.001-1.035)
--- NOTE | 2018-10-21 18:41 | CT ---
EXAMINATION TYPE: CT abdomen pelvis wo con DATE OF EXAM: 10/21/2018 COMPARISON: HISTORY: Abdominal pain CT DLP: 371.4 mGycm Automated exposure control for dose reduction was used. TECHNIQUE: Helical acquisition of images was performed from the lung bases through the pelvis. FINDINGS: Lung bases are clear of consolidation. There is no pleural effusion. There is mild fibrotic changes a t the lung bases. There is no pericardial effusion. There is aneurysm of the entire abdominal aorta that measures up to 4.8 cm. Aneurysm increased slight ly compared to old exam that measures 4.1 cm. Liver shows no focal defect. Spleen appears normal. There is no sign of pancreatic mass. There is 1.3 cm dense calcification in the right upper quadrant in the region of the gallbladder. This could be c ontracted gallbladder with large gallstone. The bile ducts are not dilated. There is no hydronephrosis. There is no adrenal mass. Kidneys show fairly normal size and contour. Ur eters are not dilated. There is no retroperitoneal adenopathy. There are surgical clips in the bowel in the pelvis on the right side. Bladder distends smoothly. There is no inguinal hernia. There are numerous diverticula in the large bowel. There is no sign of diverticulitis. Lumbar spine is intact. There is no compression fracture. IMPRESSION: THERE IS INCREASE IN THE ABDOMINAL AORTIC ANEURYSM COMPARED TO OLD EXAM. THERE IS NO EVIDENCE OF LEAK ING ANEURYSM. THERE IS CLEARING OF THE APPARENT SUBCUTANEOUS HEMORRHAGE OVER THE LEFT LOWER QUADRANT COMPARED TO OLD EXAM. MODERATELY SEVERE COLONIC DIVERTICULOSIS WITHOUT DIVERTICULITIS. THERE IS CLEARING OF A 4 CM CYSTIC M ASS ADJACENT TO THE SIGMOID COLON ON THE LEFT PELVIC SIDEWALL COMPARED TO OLD EXAM. THERE IS REVERSAL OF THE ILEOSTOMY COMPARED TO OLD EXAM.
--- NOTE | 2018-10-21 19:45 | US ---
EXAMINATION TYPE: US gallbladder DATE OF EXAM: 10/21/2018 COMPARISON: CT 2018, US 2013 CLINICAL HISTORY: Pain. Pain per order. HTN. Hyperlipidemia. HX ileostomy and reversal, large bowel r esection. EXAM MEASUREMENTS: Liver Length: 15.1 cm Gallbladder Wall: Not well seen CBD: 0.47 cm Right Kidney: 9.7 x 3.8 x 4.4 cm Limited due to patient's inability to tolerate position for exam and gas. Pancreas: limited Liver: appears wnl Gallbladder: appears contracted and to show posterior shadowing throughout suggestive of stones or l arge stone. Evidence for sonographic Mcneill's sign: no CBD: appears wnl Right Kidney: anechoic area seen upper pole measurin.1 x 1.0 x 1.0 cm Known abdominal aortic aneurysm shown on today's CT 10/21/2018. Limited images taken on ultrasound. A nestor prox sag measures: 4.0 cm. Aorta prox trans measures: 4.0 cm. IMPRESSION: There is shadowing in the right upper quadrant consistent with contracted gallbladder wit h gallstone. No dilated ducts. There is 1 cm cortical cyst interpolar right kidney. No free fluid. Ab dominal aortic aneurysm.
[2018-10-21] MEDS ORDERED: NALOXONE 0.4 MG/ML 1 ML VIAL IV PRN (19:59)
[2018-10-21] MEDS ORDERED: ONDANSETRON 4 MG/2 ML VIAL IVP PRN (20:06)
[2018-10-21] MEDS: SODIUM CHLORIDE 0.9% 1,000 ML IV SCH (20:19)
[2018-10-21 20:25] LABS: Glucose,Whole Blood 122 mg/dL (75-99)
[2018-10-21] MEDS ORDERED: ATORVASTATIN 20 MG TAB PO SCH (21:00)
[2018-10-21] MEDS ORDERED: INSULIN DETEMIR (LEVEMIR) 100 UNIT/ML SYR SQ SCH (21:00)
[2018-10-21] MEDS: ASPIRIN 81 MG PO SCH (21:24)
[2018-10-21] MEDS: CARVEDILOL 12.5 MG TAB PO SCH (21:24)
[2018-10-21] MEDS: ALPRAZolam 0.25 MG TAB PO PRN (21:28)
[2018-10-22 02:11] LABS: Glucose,Whole Blood 137 mg/dL (75-99)
[2018-10-22] MEDS: SODIUM CHLORIDE 0.9% 1,000 ML IV SCH ×2 (04:59→15:16)
[2018-10-22 07:01] LABS: Glucose,Whole Blood 108 mg/dL (75-99)
[2018-10-22] MEDS: CARVEDILOL 12.5 MG TAB PO SCH ×2 (08:34→16:27)
[2018-10-22] MEDS: LOSARTAN 50 MG TAB PO SCH (08:34)
[2018-10-22 09:10] LABS: Anisocytosis Slight; Basophils % (A) 0 %; Eosinophils % (A) 0 %; HCT 38.5 % (34.0-46.0); Hypochromasia Moderate; Lymphocytes # (A) 0.8 k/uL (1.0-4.8); Lymphocytes % (A) 12 %; MCH 29.3 pg (25.0-35.0); MCHC 31.1 g/dL (31.0-37.0); MCV 94.3 fL (80.0-100.0); Mean Platelet Volume 8.4; Monocytes # (A) 0.5 k/uL (0-1.0); Monocytes % (A) 7 %; Neutrophils # (A) 5.5 k/uL (1.3-7.7); Neutrophils % (A) 79 %; Platelet Count 231 k/uL (150-450); RBC 4.08 m/uL (3.80-5.40); RDW 16.2 % (11.5-15.5)
--- NOTE | 2018-10-22 09:14 | CONS ---
DATE OF CONSULTATION: 10/22/2018 This is a 73-year-old white female known to me from the office. The patient came with nausea, vomiting and abdominal pain. She has been admitted. CAT scan of the abdomen shows patient has infrarenal abdominal aortic aneurysm, which is 4.8. This morning, patient was lying comfortably in bed. No abdominal pain. No nausea or vomiting. 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 Tommie Martinez and at that time we recommended patient should be going to a see a plastic surgeon, Dr. Cleveland. The patient came this Saturday for the left knee flap necrosis. I have made arrangement with plastic surgeon. She has appointment on Saturday. The patient also has a history of peripheral vascular disease. PHYSICAL EXAMINATION: On examination, patient was seen in her room, lying comfortably in bed. NECK: Supple. CHEST: Clear. ABDOMEN: Soft, pulsatile mass, nontender. Femorals are 1+ bilateral. The patient has a flap necrosis of the left knee. At this point, her aneurysm is stable. No evidence of dissection or leak. We will watch very closely. I will discuss with Dr. Deysi Tomas so she can go and see Dr. Cleveland in his office on Saturday. I have also discussed with the orthopedic surgeon, Dr. Vincenzo Lara, who performed the knee surgery. He understands and he also agreed that patient should go to a plastic surgeon for further evaluation. MMODL / IJN: [id number] / MTDD
[2018-10-22 09:36] LABS: Calcium 9.1 mg/dL (8.4-10.2)
--- NOTE | 2018-10-22 09:44 | P.GSCN ---
History of Present Illness Consult date: 10/22/18 History of present illness: 73-year-old female presents to the emergency department with complaints of weakness, nausea and vomiting. Currently, on exam, the patient appears to be disoriented and is unclear why she is in the hospital. History was gained from the ER records. per the ER records, she has had several episodes of nonbilious nonbloody vomiting daily. Currently, the patient denies any abdominal pain. She denies any nausea or vomiting episodes overnight. She has no current complaints at this time. She denies any fevers, chills, chest pain or shortness of breath. Per the ER records, she is scheduled for a surgery on this upcoming Saturday for skin graft due to a chronic open wound. CT of the abdomen and pelvis was performed in the emergency department that did show a slight increase in the size of an abdominal aortic aneurysm but did not show any acute process involving bowel. Ultrasound of the abdomen was also performed that did show a contracted gallbladder with suspicion of gallstones. The patient denies any current RUQ pain. Review of Systems All systems: negative Past Medical History Past Medical History: COPD, Diabetes Mellitus, Hyperlipidemia, Hypertension, Pneumonia Additional Past Medical History / Comment(s): currently being treated for UTI History of Any Multi-Drug Resistant Organisms: None Reported Past Surgical History: Bowel Resection, Hysterectomy, Joint Replacement, Ort hopedic Surgery Additional Past Surgical History / Comment(s): colon resection with ileostomy/later reversal, surgery for fx left femur, left knee replacement 07/2018, Past Anesthesia/Blood Transfusion Reactions: No Reported Reaction Past Psychological History: No Psychological Hx Reported Smoking Status: Former smoker Past Alcohol Use History: None Reported Past Drug Use History: None Reported - Past Family History Mother Additional Family Medical History / Comment(s): heart problems Father Family Medical History: Cancer Additional Family Medical History / Comment(s): lung Sister(s) Family Medical History: Cancer Additional Family Medical History / Comment(s): leukemia Medications and Allergies Home Medications Medication Instructions Recorded Confirmed Type ALPRAZolam [Xanax] 0.25 mg PO Q8H PRN 10/05/17 10/21/18 History Ascorbic Acid [Vitamin C] 500 mg PO MOWEFR 10/05/17 10/21/18 History Carvedilol 25 mg PO BID 10/05/17 10/21/18 History Fenofibrate [Lofibra] 54 mg PO DAILY 10/05/17 10/21/18 History Losartan Potassium 50 mg PO DAILY 10/05/17 10/21/18 History [place]-3 Fatty Acids/Fish Oil [Fish 1 cap PO DAILY 10/05/17 10/21/18 History Oil 1,000 mg Softgel] Ubidecarenone [Co Q-10] 200 mg PO DAILY 10/05/17 10/21/18 History Cholecalciferol [Vitamin D3 (25 2,000 mg PO DAILY 07/24/18 10/21/18 History Mcg = 1000 Iu)] Red Yeast Rice 600 mg PO DAILY 07/24/18 10/21/18 History Aspirin EC [Ecotrin Low Dose] 81 mg PO HS 10/21/18 10/21/18 History Atorvastatin Calcium [Lipitor] 20 mg PO HS 10/21/18 10/21/18 History Insulin Detemir (Levemir) [Levemir] 23 unit SQ HS 10/21/18 10/21/18 History Insulin Lispro [humaLOG Kwikpen] See Protocol SQ AC-TID 10/21/18 10/21/18 History Allergies Allergy/AdvReac Type Severity Reaction Status Date / Time No Known Allergies Allergy Verified 10/21/18 16:58 Surgical - Exam Osteopathic Statement: *. No significant issues noted on an osteopathic structural exam other than those noted in the History and Physical/Consult. Vital Signs Temp Pulse Resp BP Pulse Ox 98.3 F 68 18 149/72 96 10/21/18 16:19 10/21/18 16:19 10/21/18 16:19 10/21/18 16:19 10/21/18 16:19 - General well nourished, no distress - Eyes PERRL - Neck trachea midline - Abdomen soft, nontender, nondistended, no rebound, no guarding - Psychiatric no memory intact Results - Labs 10/22/18 07:47 10/22/18 07:47 Abnormal Lab Results - Last 24 Hours (Table) 10/21/18 10/21/18 10/21/18 Range/Units 17:20 17:20 18:00 RDW 15.6 H (11.5-15.5) % Lymphocytes # 0.6 L (1.0-4.8) k/uL Chloride 112 H (98-107) mmol/L Carbon Dioxide 20 L (22-30) mmol/L BUN 30 H (7-17) mg/dL Creatinine 1.50 H (0.52-1.04) mg/dL Glucose 130 H (74-99) mg/dL POC Glucose (mg/dL) (75-99) mg/dL Lipase 543 H (23-300) U/L Urine Protein Trace H (Negative) Urine Ketones 1+ H (Negative) 10/21/18 10/22/18 10/22/18 Range/Units 20:22 02:10 06:57 RDW (11.5-15.5) % Lymphocytes # (1.0-4.8) k/uL Chloride (98-107) mmol/L Carbon Dioxide (22-30) mmol/L BUN (7-17) mg/dL Creatinine (0.52-1.04) mg/dL Glucose (74-99) mg/dL POC Glucose (mg/dL) 122 H 137 H 108 H (75-99) mg/dL Lipase (23-300) U/L Urine Protein (Negative) Urine Ketones (Negative) 10/22/18 Range/Units 07:47 RDW 16.2 H (11.5-15.5) % Lymphocytes # 0.8 L (1.0-4.8) k/uL Chloride (98-107) mmol/L Carbon Dioxide (22-30) mmol/L BUN (7-17) mg/dL Creatinine (0.52-1.04) mg/dL Glucose (74-99) mg/dL POC Glucose (mg/dL) (75-99) mg/dL Lipase (23-300) U/L Urine Protein (Negative) Urine Ketones (Negative) Microbiology - Last 24 Hours (Table) 10/21/18 21:51 Wound Culture - Preliminary Knee - Left Diabetes panel 10/21/18 Range/Units 17:20 Sodium 141 (137-145) mmol/L Potassium 4.5 (3.5-5.1) mmol/L Chloride 112 H (98-107) mmol/L Carbon Dioxide 20 L (22-30) mmol/L BUN 30 H (7-17) mg/dL Creatinine 1.50 H (0.52-1.04) mg/dL Glucose 130 H (74-99) mg/dL Calcium 9.7 (8.4-10.2) mg/dL AST 18 (14-36) U/L ALT 12 (9-52) U/L Alkaline Phosphatase 93 (38-126) U/L Total Protein 7.0 (6.3-8.2) g/dL Albumin 3.5 (3.5-5.0) g/dL Calcium panel 10/21/18 Range/Units 17:20 Calcium 9.7 (8.4-10.2) mg/dL Albumin 3.5 (3.5-5.0) g/dL Pituitary panel 10/21/18 Range/Units 17:20 Sodium 141 (137-145) mmol/L Potassium 4.5 (3.5-5.1) mmol/L Chloride 112 H (98-107) mmol/L Carbon Dioxide 20 L (22-30) mmol/L BUN 30 H (7-17) mg/dL Creatinine 1.50 H (0.52-1.04) mg/dL Glucose 130 H (74-99) mg/dL Calcium 9.7 (8.4-10.2) mg/dL Adrenal panel 10/21/18 Range/Units 17:20 Sodium 141 (137-145) mmol/L Potassium 4.5 (3.5-5.1) mmol/L Chloride 112 H (98-107) mmol/L Carbon Dioxide 20 L (22-30) mmol/L BUN 30 H (7-17) mg/dL Creatinine 1.50 H (0.52-1.04) mg/dL Glucose 130 H (74-99) mg/dL Calcium 9.7 (8.4-10.2) mg/dL Total Bilirubin 0.6 (0.2-1.3) mg/dL AST 18 (14-36) U/L ALT 12 (9-52) U/L Alkaline Phosphatase 93 (38-126) U/L Total Protein 7.0 (6.3-8.2) g/dL Albumin 3.5 (3.5-5.0) g/dL - Imaging CT scan - abdomen: report reviewed, image reviewed CT scan - pelvis: report reviewed, image reviewed US - abdomen: report reviewed, image reviewed Assessment and Plan (1) Nausea & vomiting Narrative/Plan: 73-year-old female with nausea vomiting and abdominal pain - Currently, the patient's symptoms appear to be resolving. She has been found to have a stones on her ultrasound, however she is not complaining of any current right upper quadrant pain or any other signs of cholecystitis. We will begin a clear liquid diet and advance as tolerated. Currently, CT of the abdomen and pelvis does not show an acute surgical process at this time. We will continue to follow. Current Visit: Yes Status: Acute Code(s): R11.2 - NAUSEA WITH VOMITING, UNSPECIFIED SNOMED Code(s): 73277861
--- NOTE | 2018-10-22 12:20 | P.HPIM ---
History of Present Illness H&P Date: 10/22/18 This is a 73-year-old female patient of Dr. Frazier with past history for COPD, diabetes mellitus type 2 insulin requiring, hypertension, hyperlipidemia, generalized osteoarthritis, generalized anxiety disorder. Patient has history of osteoarthritis and was recently admitted under the care of Dr. Lara status post left total knee arthroplasty on August 05. Subsequently, she was readmitted on September 09 and underwent patellar retinaculum and quadriceps tendon repair. She was readmitted in September for surgical wound ulceration eschar with flap necrosis and underwent I&D was follow-up with Dr. Martinez and discharged home on Keflex. Patient continues to have wound and eschar to the left knee surgical site. She is scheduled on Saturday for repeat skin grafting to the left knee with Dr. Cleveland at [facility]. Patient presented to the hospital with complaints of vomiting for a couple days as well as bilateral lower abdominal pain. She denies any sick contacts. She denies any fever, no dysuria, no back pain. She denies any new medications and denies any alcohol intake. Patient presented to [facility] emergency center for evaluation. Patient was afebrile, heart rate 68, blood pressure 149/72, pulse ox 96%. EKG was in normal sinus rhythm with no acute ST-T wave changes. White count was normal at 5.8, hemoglobin 12.6, platelet count 238. BUN 13 creatinine 1.50, blood sugar 130. Sodium 141, potassium 4.5, chloride 112, CO2 20. Lactic acid was 0.9, lipase 543. Urinalysis negative. CAT scan of the abdomen and pelvis revealed increase in abdominal aortic aneurysm compared to old exam. There is no evidence of leaking aneurysm. There is clearing of the apparent subcutaneous hemorrhage over the left lower quadrant compared to old exam. Moderately severe colonic diverticulosis without diverticulitis. There is clearing of a 4 cm cystic mass adjacent to the sigmoid colon on the left pelvic sidewall compared to old exam. There is reversal of ileostomy compared to old. Abdominal aortic aneurysm measures 4.8 and on previous study 4.1. Gallbladder ultrasound revealed shadowing in the right upper quadrant consistent with contracted gallbladder with gallstone. No dilated ducts. There is a 1 cm cortical cyst in the right kidney. No free fluid. Abdominal aortic aneurysm. Patient was admitted to the [facility] floor and consult requested with Dr. Wills and Dr. Harrison. Past Medical History Past Medical History: COPD, Diabetes Mellitus, Hyperlipidemia, Hypertension, Pneumonia History of Any Multi-Drug Resistant Organisms: None Reported Past Surgical History: Bowel Resection, Hysterectomy, Joint Replacement, Orthopedic Surgery Additional Past Surgical History / Comment(s): colon resection with ileostomy/ later reversal, surgery for fx left femur, left knee replacement 07/2018, Past Anesthesia/Blood Transfusion Reactions: No Reported Reaction Past Psychological History: No Psychological Hx Reported Smoking Status: Former smoker Past Alcohol Use History: None Reported Additional Past Alcohol Use History / Comment(s): 2 PPD for 56 years, currently cut back to possibly a few cigarettes per day. No illicit drug use or alcohol use. Patient has home oxygen that she uses at nighttime only. Patient is a smoker of Past Drug Use History: None Reported - Past Family History Mother Additional Family Medical History / Comment(s): heart problems Father Family Medical History: Cancer Additional Family Medical History / Comment(s): lung Sister(s) Family Medical History: Cancer Additional Family Medical History / Comment(s): leukemia Medications and Allergies Home Medications Medication Instructions Recorded Confirmed Type ALPRAZolam [Xanax] 0.25 mg PO Q8H PRN 10/05/17 10/21/18 History Ascorbic Acid [Vitamin C] 500 mg PO MOWEFR 10/05/17 10/21/18 History Carvedilol 25 mg PO BID 10/05/17 10/21/18 History Fenofibrate [Lofibra] 54 mg PO DAILY 10/05/17 10/21/18 History Losartan Potassium 50 mg PO DAILY 10/05/17 10/21/18 History [place]-3 Fatty Acids/Fish Oil [Fish 1 cap PO DAILY 10/05/17 10/21/18 History Oil 1,000 mg Softgel] Ubidecarenone [Co Q-10] 200 mg PO DAILY 10/05/17 10/21/18 History Cholecalciferol [Vitamin D3 (25 2,000 mg PO DAILY 07/24/18 10/21/18 History Mcg = 1000 Iu)] Red Yeast Rice 600 mg PO DAILY 07/24/18 10/21/18 History Aspirin EC [Ecotrin Low Dose] 81 mg PO HS 10/21/18 10/21/18 History Atorvastatin Calcium [Lipitor] 20 mg PO HS 10/21/18 10/21/18 History Insulin Detemir (Levemir) [Levemir] 23 unit SQ HS 10/21/18 10/21/18 History Insulin Lispro [humaLOG Kwikpen] See Protocol SQ AC-TID 10/21/18 10/21/18 History Allergies Allergy/AdvReac Type Severity Reaction Status Date / Time No Known Allergies Allergy Verified 10/21/18 16:58 Physical Exam Vitals: Vital Signs Temp Pulse Pulse Resp BP BP Pulse Ox 10/22/18 04:45 98.6 F 81 16 186/78 100 10/21/18 21:02 98.2 F 87 20 185/85 96 10/21/18 19:46 98.3 F 80 14 175/77 95 10/21/18 18:30 80 22 182/76 97 10/21/18 16:19 98.3 F 68 18 149/72 96 Intake and Output 10/21/18 10/22/18 10/22/18 22:59 06:59 14:59 Intake Total 0 Balance 0 Intake: Oral 0 Other: # Voids 2 Weight 64.41 kg Review of Systems Constitutional: Denies anorexia, Denies chills, Denies fatigue, Denies fever, reports lethargy, reports malaise, reports poor appetite, reports weakness Ears, nose, mouth and throat: Denies dysphagia, Denies nasal congestion, Denies nasal discharge, Denies vertigo Cardiovascular: Denies chest pain, Denies decreased exercise tolerance, Denies dyspnea on exertion, Denies edema, Denies leg edema, Denies lightheadedness, Denies syncope Respiratory: Reports home oxygen, Denies cough, Denies cough with sputum, Denies dyspnea, Denies excessive sputum, Denies hemoptysis, Denies respiratory infections, Denies snoring Gastrointestinal: reports abdominal pain, reports loss of appetite, reports nausea and vomiting Genitourinary: Denies dysuria, Denies urgency, Denies urinary frequency Musculoskeletal: Reports gait dysfunction, Denies frequent falls, Denies muscle weakness, Denies myalgias Musculoskeletal: left: knee pain, knee stiffness, knee swelling Integumentary: Reports wound left knee, Denies pruritus, Denies rash Neurological: Reports gait dysfunction, Denies aphasia, Denies change in mentation, Denies change in speech, Denies seizures, Denies syncope Psychiatric: Denies anxiety, Denies depression Endocrine: Denies fatigue, Denies weight change, reports abnormal blood sugar Physical exam: Gen: This is a 73-year-old female. Patient is resting bed appears to be somewhat uncomfortable HEENT: Head is atraumatic, normocephalic. Pupils equal, round. Sclerae is anicteric. NECK: Supple. No JVD. No lymphadenopathy. No thyromegaly. LUNGS: Clear to auscultation. No wheezes or rhonchi. No intercostal retractions. HEART: Regular rate and rhythm. No murmur. ABDOMEN: Soft. Bowel sounds are present. No masses. No tenderness. EXTREMITIES: No pedal edema. No calf tenderness. Large dressing and immobilizer on the left knee. NEUROLOGICAL: Patient is awake, alert and oriented x3. Cranial nerves 2 through 12 are grossly intact poor historian. Results CBC & Chem 7: 10/22/18 07:47 10/22/18 07:47 Labs: Abnormal Lab Results - Last 24 Hours (Table) 10/21/18 10/21/18 10/21/18 Range/Units 17:20 17:20 18:00 RDW 15.6 H (11.5-15.5) % Lymphocytes # 0.6 L (1.0-4.8) k/uL Chloride 112 H (98-107) mmol/L Carbon Dioxide 20 L (22-30) mmol/L BUN 30 H (7-17) mg/dL Creatinine 1.50 H (0.52-1.04) mg/dL Glucose 130 H (74-99) mg/dL POC Glucose (mg/dL) (75-99) mg/dL Lipase 543 H (23-300) U/L Urine Protein Trace H (Negative) Urine Ketones 1+ H (Negative) 10/21/18 10/22/18 10/22/18 Range/Units 20:22 02:10 06:57 RDW (11.5-15.5) % Lymphocytes # (1.0-4.8) k/uL Chloride (98-107) mmol/L Carbon Dioxide (22-30) mmol/L BUN (7-17) mg/dL Creatinine (0.52-1.04) mg/dL Glucose (74-99) mg/dL POC Glucose (mg/dL) 122 H 137 H 108 H (75-99) mg/dL Lipase (23-300) U/L Urine Protein (Negative) Urine Ketones (Negative) Microbiology - Last 24 Hours (Table) 10/21/18 21:51 Wound Culture - Preliminary Knee - Left Thrombosis Risk Factor Assmnt - DVT/VTE Prophylaxis DVT/VTE Prophylaxis: Pharmacologic Prophylaxis ordered - Choose All That Apply Any of the Below Risk Factors Present?: Yes Other Risk Factors: Yes Each Risk Factor Represents 2 Points: Age 61-74 years Thrombosis Risk Factor Assessment Total Risk Factor Score: 2 Thrombosis Risk Factor Assessment Level: Low Risk Assessment and Plan Plan: 1. Abdominal pain, nausea and vomiting with elevated lipase and stones in the gallbladder. Possible gallbladder pancreatitis. Consult with general surgery. Dr. Wills has advanced her to clear liquid diet and advance as tolerated. Repeat lipase in the morning. Hold atorvastatin. Continue IV fluids and 100 mL per hour. Continue Zofran as needed for nausea. 2. Increasing abdominal aortic aneurysm. Consult with Dr. Hunter guerrero. He feels aneurysm is stable. No evidence of dissection or leak. Plan to watch closely.. 3. Metabolic acidosis secondary to vomiting. Continue IV fluids. Repeat CMP in am. 4. Surgical wound ulceration and eschar with flap necrosis status post I&D on previous admission as well as status post patellar retinaculum and quadriceps tendon repair. This is at the site of left knee total arthroplasty with Dr. Lara. Patient is scheduled for repeat flap surgery with Dr. Cleveland on Saturday. Patient was previously seen by Dr. Martinez and treated with oral antibiotics. 5. Diabetes mellitus type 2, insulin requiring. Levemir 23 units at at bedtime will be held until patient is a full diet. Patient has had episodes of hypoglyc emia on previous admissions. Continue NovoLog scale. 6. Hypertension. Continue Coreg 25 mg twice daily, losartan 50 mg daily. 7. Hyperlipidemia. Hold fenofibrate, omega-3. 8. Generalized anxiety disorder. Continue Xanax or 0.25 mg every 8 hours as needed. 9. History of bowel resection, stable. 10. Tobacco use and dependence. Patient continues to smoke off and on. Nicotine patch. 11. DVT prophylaxis. Heparin subcu. 12. GI prophylaxis. Pepcid. Patient will be admitted to the hospital for minimum of 2 night stay. Discharge plan: Possibly Home with [facility]. We will add PT and OT for evaluation of subacute rehab need. Impression and plan of care have been directed as dictated by the signing physician. Annie Ba nurse practitioner acting as scribe for signing physician.
[2018-10-22 12:51] LABS: Glucose,Whole Blood 103 mg/dL (75-99)
[2018-10-22] MEDS: INSULIN ASPART (NovoLOG) 100 UNIT/ML VIAL SQ SCH ×3 (13:03→20:45)
[2018-10-22 17:22] LABS: Glucose,Whole Blood 99 mg/dL (75-99)
[2018-10-22] MEDS: HEPARIN SODIUM,PORCINE 5,000 UNIT/ML 1 ML VIAL SQ SCH (19:59)
[2018-10-22] MEDS: ASPIRIN 81 MG PO SCH (19:59)
[2018-10-22 20:24] LABS: Glucose,Whole Blood 111 mg/dL (75-99)
[2018-10-22] MEDS: ALPRAZolam 0.25 MG TAB PO PRN (22:28)
[2018-10-23 01:47] LABS: Glucose,Whole Blood 83 mg/dL (75-99)
[2018-10-23] MEDS: SODIUM CHLORIDE 0.9% 1,000 ML IV SCH ×3 (02:20→20:24)
[2018-10-23 07:11] LABS: Glucose,Whole Blood 79 mg/dL (75-99)
[2018-10-23] MEDS: INSULIN ASPART (NovoLOG) 100 UNIT/ML VIAL SQ SCH ×4 (07:52→20:29)
[2018-10-23] MEDS: HEPARIN SODIUM,PORCINE 5,000 UNIT/ML 1 ML VIAL SQ SCH ×2 (08:31→20:24)
[2018-10-23] MEDS: CARVEDILOL 12.5 MG TAB PO SCH ×2 (08:31→16:46)
[2018-10-23] MEDS: FAMOTIDINE 20 MG TAB PO SCH (08:31)
[2018-10-23] MEDS: LOSARTAN 50 MG TAB PO SCH (08:31)
[2018-10-23 08:48] LABS: HCT 34.6 % (34.0-46.0); Hypochromasia Moderate; MCH 28.8 pg (25.0-35.0); MCHC 31.8 g/dL (31.0-37.0); MCV 90.6 fL (80.0-100.0); Mean Platelet Volume 8.4; Platelet Count 163 k/uL (150-450); RBC 3.82 m/uL (3.80-5.40); RDW 15.5 % (11.5-15.5); WBC 4.8 k/uL (3.8-10.6)
[2018-10-23 09:10] LABS: Albumin 2.5 g/dL (3.5-5.0); Calcium 8.4 mg/dL (8.4-10.2); Potassium 3.5 mmol/L (3.5-5.1); Total Bilirubin 0.5 mg/dL (0.2-1.3); Total Protein 5.5 g/dL (6.3-8.2)
--- NOTE | 2018-10-23 11:10 | P.PN ---
Subjective Progress Note Date: 10/23/18 Patient seen and examined at bedside. Patient is more alert today and answering questions appropriately. No acute events. Denies abdominal pain. Objective - Vital Signs Vital signs: Vital Signs Temp 98.7 F 10/23/18 05:27 Pulse 67 10/23/18 05:27 Resp 18 10/23/18 05:27 BP 168/68 10/23/18 05:27 Pulse Ox 98 10/23/18 05:27 Intake & Output 10/22/18 10/23/18 10/23/18 18:59 06:59 18:59 Intake Total 800 50 800 Balance 800 50 800 Intake: IV 800 800 Sodium Chloride 0.9% 1, 800 800 000 ml @ 100 mls/hr IV . Q10H QUINN Rx#:[id number] Oral 50 Other: # Voids 0 3 - Constitutional General appearance: Present: cooperative, no acute distress - Respiratory Details: noted difficulty with respiration - Gastrointestinal Gastrointestinal Comment(s): soft, nontender, nondistended, no rebound, no guarding - Psychiatric Psychiatric: Present: A&O x's 3 - Labs CBC & Chem 7: 10/23/18 07:50 10/23/18 07:50 Labs: Abnormal Lab Results - Last 24 Hours (Table) 10/22/18 10/22/18 10/23/18 Range/Units 12:29 20:22 07:50 Hgb 11.0 L (11.4-16.0) gm/dL Chloride (98-107) mmol/L Carbon Dioxide (22-30) mmol/L POC Glucose (mg/dL) 103 H 111 H (75-99) mg/dL Total Protein (6.3-8.2) g/dL Albumin (3.5-5.0) g/dL Lipase (23-300) U/L 10/23/18 Range/Units 07:50 Hgb (11.4-16.0) gm/dL Chloride 111 H (98-107) mmol/L Carbon Dioxide 21 L (22-30) mmol/L POC Glucose (mg/dL) (75-99) mg/dL Total Protein 5.5 L (6.3-8.2) g/dL Albumin 2.5 L (3.5-5.0) g/dL Lipase 724 H (23-300) U/L Microbiology - Last 24 Hours (Table) 10/21/18 21:51 Gram Stain - Preliminary Knee - Left Wound Culture - Preliminary Assessment and Plan (1) Nausea & vomiting Narrative/Plan: 73-year-old female with nausea vomiting and abdominal pain - I had a very long discussion with the patient and the patient's . The patient is scheduled for a direct admission to [facility] this upcoming October 27 for evaluation of a chronic left knee wound. This left knee wound is an open wound from a knee replacement in which the joint is exposed. She is supposed to be evaluated by vascular surgery, orthopedic surgery and plastic surgery. 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 Currently, with no acute abdominal pain and resolving pancreatitis, any intervention for the gallbladder can be delayed as priority should be given to the exposed joint and chronic knee infection. I did discuss this with Dr. Tomas and we will advance the patient's diet and treat her current medical conditions to optimize this patient's condition for intervention for this chronic left knee infection. I did discuss the importance of a cholecystectomy in the future and the patient is agreeable with this plan. Current Visit: Yes Status: Acute Code(s): R11.2 - NAUSEA WITH VOMITING, UNSPECIFIED SNOMED Code(s): 90893789
[2018-10-23] MEDS: HYDROmorphone 0.5 MG/0.5 ML SYRINGE IVP PRN (11:37)
[2018-10-23 11:43] LABS: Glucose,Whole Blood 95 mg/dL (75-99)
--- NOTE | 2018-10-23 12:57 | P.PN ---
Subjective Progress Note Date: 10/23/18 This is a 73-year-old female patient of Dr. Frazier with past history for COPD, diabetes mellitus type 2 insulin requiring, hypertension, hyperlipidemia, generalized osteoarthritis, generalized anxiety disorder. Patient has history of osteoarthritis and was recently admitted under the care of Dr. Lara status post left total knee arthroplasty on August 05. Subsequently, she was readmitted on September 09 and underwent patellar retinaculum and quadriceps tendon repair. She was readmitted in September for surgical wound ulceration eschar with flap necrosis and underwent I&D was follow-up with Dr. Musa akbar and discharged home on Keflex. Patient continues to have wound and eschar to the left knee surgical site. She is scheduled on Saturday for repeat skin grafting to the left knee with Dr. Cleveland at [facility]. Patient presented to the hospital with complaints of vomiting for a couple days as well as bilateral lower abdominal pain. She denies any sick contacts. She denies any fever, no dysuria, no back pain. She denies any new medications and denies any alcohol intake. Patient presented to [facility] emergency center for evaluation. Patient was afebrile, heart rate 68, blood pressure 149/72, pulse ox 96%. EKG was in normal sinus rhythm with no acute ST-T wave changes. White count was normal at 5.8, hemoglobin 12.6, platelet count 238. BUN 13 creatinine 1.50, blood sugar 130. Sodium 141, potassium 4.5, chloride 112, CO2 20. Lactic acid was 0.9, lipase 543. Urinalysis negative. CAT scan of the abdomen and pelvis revealed increase in abdominal aortic aneurysm compared to old exam. There is no evidence of leaking aneurysm. There is clearing of the apparent subcutaneous hemorrhage over the left lower quadrant compared to old exam. Moderately severe colonic diverticulosis without diverticulitis. There is clearing of a 4 cm cystic mass adjacent to the sigmoid colon on the left pelvic sidewall compared to old exam. There is reversal of ileostomy compared to old. Abdominal aortic aneurysm measures 4.8 and on previous study 4.1. Gallbladder ultrasound revealed shadowing in the right upper quadrant consistent with contracted gallbladder with gallstone. No dilated ducts. There is a 1 cm cortical cyst in the right kidney. No free fluid. Abdominal aortic aneurysm. Patient was admitted to the [facility] floor and consult requested with Dr. Wills and Dr. Harrison. 10/23: Patient still has abdominal pain, and lipase is lower today from a previous of 1500-now at 724, low-fat diet recommended, were anticipating discharge these Saturday or Saturday depending on abdominal discomfort, she anticipates to have a gait admission to [facility] with Dr. Cleveland for her left knee on Saturday. Dilaudid started, continue oral fluids for hydration, patient denies any fever chills nausea vomiting, left knee remains to be stable without any purulent drainage still has necrotic debris Review of Systems Constitutional: Denies anorexia, Denies chills, Denies fatigue, Denies fever, reports lethargy, reports malaise, reports poor appetite, reports weakness Ears, nose, mouth and throat: Denies dysphagia, Denies nasal congestion, Denies nasal discharge, Denies vertigo Cardiovascular: Denies chest pain, Denies decreased exercise tolerance, Denies dyspnea on exertion, Denies edema, Denies leg edema, Denies lightheadedness, Denies syncope Respiratory: Reports home oxygen, Denies cough, Denies cough with sputum, Denies dyspnea, Denies excessive sputum, Denies hemoptysis, Denies respiratory infections, Denies snoring Gastrointestinal: reports abdominal pain, reports loss of appetite, reports nausea and vomiting Genitourinary: Denies dysuria, Denies urgency, Denies urinary frequency Musculoskeletal: Reports gait dysfunction, Denies frequent falls, Denies muscle weakness, Denies myalgias Musculoskeletal: left: knee pain, knee stiffness, knee swelling Integumentary: Reports wound left knee, Denies pruritus, Denies rash Neurological: Reports gait dysfunction, Denies aphasia, Denies change in mentation, Denies change in speech, Denies seizures, Denies syncope Psychiatric: Denies anxiety, Denies depression Endocrine: Denies fatigue, Denies weight change, reports abnormal blood sugar Objective - Vital Signs Vital signs: Vital Signs Temp 98.7 F 10/23/18 05:27 Pulse 67 10/23/18 05:27 Resp 18 10/23/18 05:27 BP 168/68 10/23/18 05:27 Pulse Ox 98 10/23/18 05:27 Intake & Output 10/22/18 10/23/18 10/23/18 18:59 06:59 18:59 Intake Total 800 50 800 Balance 800 50 800 Intake: IV 800 800 Sodium Chloride 0.9% 1, 800 800 000 ml @ 100 mls/hr IV . Q10H [facility] Rx#:[id number] Oral 50 Other: # Voids 0 3 - Constitutional General appearance: Present: cooperative, no acute distress, thin - EENT Eyes: Present: anicteric sclerae ENT: Present: hearing grossly normal, NA/AT, normal oropharynx - Respiratory Respiratory: bilateral: CTA, negative: diminished, dullness, rales, rhonchi - Cardiovascular Rhythm: regular Heart sounds: normal: S1, S2 Abnormal Heart Sounds: Absent: systolic murmur, diastolic murmur, rub, S3 Gallop, S4 Gallop, click, other - Gastrointestinal General gastrointestinal: Present: organomegaly, soft - Integumentary Integumentary: Present: decreased turgor, normal - Neurologic Neurologic: Present: CNII-XII intact - Musculoskeletal Musculoskeletal: Present: gait normal - Psychiatric Psychiatric: Present: A&O x's 3 - Labs CBC & Chem 7: 10/23/18 07:50 10/23/18 07:50 Labs: Abnormal Lab Results - Last 24 Hours (Table) 10/22/18 10/23/18 10/23/18 Range/Units 20:22 07:50 07:50 Hgb 11.0 L (11.4-16.0) gm/dL Chloride 111 H (98-107) mmol/L Carbon Dioxide 21 L (22-30) mmol/L POC Glucose (mg/dL) 111 H (75-99) mg/dL Total Protein 5.5 L (6.3-8.2) g/dL Albumin 2.5 L (3.5-5.0) g/dL Lipase 724 H (23-300) U/L Microbiology - Last 24 Hours (Table) 10/21/18 21:51 Gram Stain - Preliminary Knee - Left Wound Culture - Preliminary Assessment and Plan Plan: Assessment and Plan Plan: 1. acute pancreatitis Abdominal pain, nausea and vomiting with elevated lipase and stones in the gallbladder. Possible gallbladder pancreatitis. Consult with general surgery. Dr. Wills has advanced her to clear liquid diet and advance as tolerated. Repeat lipase in the morning. Hold atorvastatin. Continue IV fluids and 100 mL per hour. Continue Zofran as needed for nausea. no plans for gallbladder surgery at this timelipase continues to improve, low-fat diet started 2. Increasing abdominal aortic aneurysm. Consult with Dr. Harrison appreciated. He feels aneurysm is stable. No evidence of dissection or leak. Plan to watch closely.. 3. Metabolic acidosis secondary to vomiting. Continue IV fluids. Repeat CMP in am. 4. Surgical wound ulceration and eschar with flap necrosis status post I&D on previous admission as well as status post patellar retinaculum and quadriceps tendon repair. This is at the site of left knee total arthroplasty with Dr. Lara. Patient is scheduled for repeat flap surgery with Dr. Cleveland on Saturday. Patient was previously seen by Dr. Martinez and treated with oral antibiotics. 5. Diabetes mellitus type 2, insulin requiring. Levemir 23 units at at bedtime will be held until patient is a full diet. Patient has had episodes of hypog lycemia on previous admissions. Continue NovoLog scale. 6. Hypertension. Continue Coreg 25 mg twice daily, losartan 50 mg daily. 7. Hyperlipidemia. Hold fenofibrate, omega-3. 8. Generalized anxiety disorder. Continue Xanax or 0.25 mg every 8 hours as needed. 9. History of bowel resection, stable. 10. Tobacco use and dependence. Patient continues to smoke off and on. Nicotine patch. 11. DVT prophylaxis. Heparin subcu. 12. GI prophylaxis. Pepcid. Patient will be admitted to the hospital for minimum of 2 night stay. Discharge plan: Possibly Home with [facility]. We will add PT and OT for evaluation of subacute rehab need. Impression and plan of care have been directed as dictated by the signing physician. Annie Ba nurse practitioner acting as scribe for signing physician.
[2018-10-23 16:53] LABS: Glucose,Whole Blood 121 mg/dL (75-99)
[2018-10-23] MEDS: ALPRAZolam 0.25 MG TAB PO PRN (20:23)
[2018-10-23] MEDS: ASPIRIN 81 MG PO SCH (20:24)
[2018-10-23 20:49] LABS: Glucose,Whole Blood 114 mg/dL (75-99)
[2018-10-24 01:56] LABS: Glucose,Whole Blood 93 mg/dL (75-99)
[2018-10-24 03:00] VITALS: PULSE 76
[2018-10-24] MEDS: HYDROmorphone 0.5 MG/0.5 ML SYRINGE IVP PRN (04:03)
[2018-10-24 06:53] VITALS: BP 153/70; RESP 14; TEMP 97.8
[2018-10-24 07:16] LABS: Glucose,Whole Blood 91 mg/dL (75-99)
[2018-10-24] MEDS: INSULIN ASPART (NovoLOG) 100 UNIT/ML VIAL SQ SCH (07:21)
[2018-10-24] MEDS: LOSARTAN 50 MG TAB PO SCH (08:12)
[2018-10-24] MEDS: FAMOTIDINE 20 MG TAB PO SCH (08:12)
[2018-10-24] MEDS: HEPARIN SODIUM,PORCINE 5,000 UNIT/ML 1 ML VIAL SQ SCH (08:12)
[2018-10-24] MEDS: CARVEDILOL 12.5 MG TAB PO SCH (08:12)
[2018-10-24] MEDS: SODIUM CHLORIDE 0.9% 1,000 ML IV SCH (08:47)
--- NOTE | 2018-10-24 09:27 | P.PN ---
Subjective Progress Note Date: 10/24/18 This is a 73-year-old female patient of Dr. Frazier with past history for COPD, diabetes mellitus type 2 insulin requiring, hypertension, hyperlipidemia, generalized osteoarthritis, generalized anxiety disorder. Patient has history of osteoarthritis and was recently admitted under the care of Dr. Lara status post left total knee arthroplasty on August 05. Subsequently, she was readmitted on September 09 and underwent patellar retinaculum and quadriceps tendon repair. She was readmitted in September for surgical wound ulceration eschar with flap necrosis and underwent I&D was follow-up with Dr. Margarito navarro and discharged home on Keflex. Patient continues to have wound and eschar to the left knee surgical site. She is scheduled on Saturday for repeat skin grafting to the left knee with Dr. Cleveland at [facility]. Patient presented to the hospital with complaints of vomiting for a couple days as well as bilateral lower abdominal pain. She denies any sick contacts. She denies any fever, no dysuria, no back pain. She denies any new medications and denies any alcohol intake. Patient presented to [facility] emergency center for evaluation. Patient was afebrile, heart rate 68, blood pressure 149/72, pulse ox 96%. EKG was in normal sinus rhythm with no acute ST-T wave changes. White count was normal at 5.8, hemoglobin 12.6, platelet count 238. BUN 13 creatinine 1.50, blood sugar 130. Sodium 141, potassium 4.5, chloride 112, CO2 20. Lactic acid was 0.9, lipase 543. Urinalysis negative. CAT scan of the abdomen and pelvis revealed increase in abdominal aortic aneurysm compared to old exam. There is no evidence of leaking aneurysm. There is clearing of the apparent subcutaneous hemorrhage over the left lower quadrant compared to old exam. Moderately severe colonic diverticulosis without diverticulitis. There is clearing of a 4 cm cystic mass adjacent to the sigmoid colon on the left pelvic sidewall compared to old exam. There is reversal of ileostomy compared to old. Abdominal aortic aneurysm measures 4.8 and on previous study 4.1. Gallbladder ultrasound revealed shadowing in the right upper quadrant consistent with contracted gallbladder with gallstone. No dilated ducts. There is a 1 cm cortical cyst in the right kidney. No free fluid. Abdominal aortic aneurysm. Patient was admitted to the [facility] floor and consult requested with Dr. Wills and Dr. Harrison. 10/23: Patient still has abdominal pain, and lipase is lower today from a previous of 1500-now at 724, low-fat diet recommended, were anticipating discharge these Saturday or Saturday depending on abdominal discomfort, she anticipates to have a gait admission to [facility] with Dr. Cleveland for her left knee on Saturday. Dilaudid started, continue oral fluids for hydration, patient denies any fever chills nausea vomiting, left knee remains to be stable without any purulent drainage still has necrotic debris 10/24: Dr. Wills has advance diet to low fat and patient is tolerating. She denies any nausea or vomiting. She states she did occur last pain pill last evening and this was for her knee not her abdomen. Dr. Wills has discussed having a cholecystectomy later after all things are resolved with her left knee surgery which is scheduled for Saturday. Awaiting PT and OT evaluations but patient is planning to return home. I'll repeat lipase is 773. Patient remains afebrile, heart rate 76, blood pressure 153/70, pulse ox 94% on room air. Blood sugars have been running between 91 and 121 on NovoLog scale only. Plan to monitor patient overnight, obtain PT and OT evaluations and discharged home tomorrow. Objective - Vital Signs Vital signs: Vital Signs Temp 97.8 F 10/24/18 06:52 Pulse 76 10/24/18 06:52 Resp 14 10/24/18 06:52 BP 153/70 10/24/18 06:52 Pulse Ox 94 L 10/24/18 06:52 Intake & Output 10/23/18 10/24/18 10/24/18 18:59 06:59 18:59 Intake Total 800 800 Balance 800 800 Intake: IV 800 800 Sodium Chloride 0.9% 1, 800 800 000 ml @ 100 mls/hr IV . Q10H [facility] Rx#:[id number] Other: Voiding Method Incontinent # Voids 2 2 - Exam Review of Systems Constitutional: Denies anorexia, Denies chills, Denies fatigue, Denies fever, reports lethargy, reports malaise, reports poor appetite, reports weakness Ears, nose, mouth and throat: Denies dysphagia, Denies nasal congestion, Denies nasal discharge, Denies vertigo Cardiovascular: Denies chest pain, Denies decreased exercise tolerance, Denies dyspnea on exertion, Denies edema, Denies leg edema, Denies lightheadedness, Denies syncope Respiratory: Reports home oxygen, Denies cough, Denies cough with sputum, Denies dyspnea, Denies excessive sputum, Denies hemoptysis, Denies respiratory infections, Denies snoring Gastrointestinal: Denies abdominal pain, denies loss of appetite, denies nausea and vomiting Genitourinary: Denies dysuria, Denies urgency, Denies urinary frequency Musculoskeletal: Reports gait dysfunction, Denies frequent falls, Denies muscle weakness, Denies myalgias Musculoskeletal: left: knee pain, knee stiffness, knee swelling Integumentary: Reports wound left knee, Denies pruritus, Denies rash Neurological: Reports gait dysfunction, Denies aphasia, Denies change in mentation, Denies change in speech, Denies seizures, Denies syncope Psychiatric: Denies anxiety, Denies depression Endocrine: Denies fatigue, Denies weight change, reports abnormal blood sugar Physical exam: - Constitutional General appearance: Present: cooperative, no acute distress, thin - EENT Eyes: Present: anicteric sclerae ENT: Present: hearing grossly normal, NA/AT, normal oropharynx - Respiratory Respiratory: bilateral: CTA, negative: diminished, dullness, rales, rhonchi - Cardiovascular Rhythm: regular Heart sounds: normal: S1, S2 Abnormal Heart Sounds: Absent: systolic murmur, diastolic murmur, rub, S3 Gallop, S4 Gallop, click, other - Gastrointestinal General gastrointestinal: Present: organomegaly, soft - Integumentary Integumentary: Present: decreased turgor, normal - Neurologic Neurologic: Present: CNII-XII intact - Musculoskeletal Musculoskeletal: Present: gait normal Ulcer to the left knee with eschar - Psychiatric Psychiatric: Present: A&O x's 3 - Labs CBC & Chem 7: 10/23/18 07:50 10/23/18 07:50 Labs: Abnormal Lab Results - Last 24 Hours (Table) 10/23/18 10/23/18 10/23/18 Range/Units 07:50 07:50 16:50 Hgb 11.0 L (11.4-16.0) gm/dL Chloride 111 H (98-107) mmol/L Carbon Dioxide 21 L (22-30) mmol/L POC Glucose (mg/dL) 121 H (75-99) mg/dL Total Protein 5.5 L (6.3-8.2) g/dL Albumin 2.5 L (3.5-5.0) g/dL Lipase 724 H (23-300) U/L 10/23/18 Range/Units 20:29 Hgb (11.4-16.0) gm/dL Chloride (98-107) mmol/L Carbon Dioxide (22-30) mmol/L POC Glucose (mg/dL) 114 H (75-99) mg/dL Total Protein (6.3-8.2) g/dL Albumin (3.5-5.0) g/dL Lipase (23-300) U/L Microbiology - Last 24 Hours (Table) 10/21/18 21:51 Gram Stain - Preliminary Knee - Left Wound Culture - Preliminary Gram Neg Bacilli Assessment and Plan Plan: 1. Abdominal pain, nausea and vomiting with elevated lipase and stones in the gallbladder. Possible gallbladder pancreatitis. Consult with general surgery. Dr. Wills has advanced her to clear liquid diet and advance as tolerated. Repeat lipase in the morning. Hold atorvastatin. Discontinue IV fluids and 100 mL per hour. Continue Zofran as needed for nausea. No plans for gallbladder surgery at this timelipase continues to improve, low-fat diet tolerated. 2. Increasing abdominal aortic aneurysm. Consult with Dr. Harrison appreciated. He feels aneurysm is stable. No evidence of dissection or leak. Plan to watch closely. 3. Metabolic acidosis secondary to vomiting. Continue IV fluids. Repeat CMP in am. 4. Surgical wound ulceration and eschar with flap necrosis status post I&D on previous admission as well as status post patellar retinaculum and quadriceps tendon repair. This is at the site of left knee total arthroplasty with Dr. Lara. Patient is scheduled for repeat flap surgery with Dr. Cleveland on Saturday. Patient was previously seen by Dr. Martinez and treated with oral antibiotics. 5. Diabetes mellitus type 2, insulin requiring. Levemir 23 units at at bedtime will be held until patient is a full diet. Patient has had episodes of hypoglycemia on previous admissions. Continue NovoLog scale. 6. Hypertension. Continue Coreg 25 mg twice daily, losartan 50 mg daily. 7. Hyperlipidemia. Hold fenofibrate, omega-3. 8. Generalized anxiety disorder. Continue Xanax or 0.25 mg every 8 hours as needed. 9. History of bowel resection, stable. 10. Tobacco use and dependence. Patient continues to smoke off and on. Nicoti ne patch. 11. DVT prophylaxis. Heparin subcu. 12. GI prophylaxis. Pepcid. . Discharge plan: Home with [facility] on Saturday. Impression and plan of care have been directed as dictated by the signing physician. Annie Ba nurse practitioner acting as scribe for signing physician.
--- NOTE | 2018-10-24 10:56 | P.PN ---
Subjective Progress Note Date: 10/24/18 patient seen and examined at bedside. States she is not having abdominal pain. Tolerating diet. Objective - Vital Signs Vital signs: Vital Signs Temp 97.8 F 10/24/18 06:52 Pulse 76 10/24/18 06:52 Resp 14 10/24/18 06:52 BP 153/70 10/24/18 06:52 Pulse Ox 94 L 10/24/18 06:52 Intake & Output 10/23/18 10/24/18 10/24/18 18:59 06:59 18:59 Intake Total 800 800 120 Balance 800 800 120 Intake: IV 800 800 Sodium Chloride 0.9% 1, 800 800 000 ml @ 100 mls/hr IV . Q10H [facility] Rx#:[id number] Oral 120 Other: Voiding Method Incontinent # Voids 2 2 - Constitutional General appearance: Present: cooperative - EENT Eyes: Present: PERRLA - Gastrointestinal Gastrointestinal Comment(s): soft, nontender, nondistended, no rebound, guarding - Labs CBC & Chem 7: 10/23/18 07:50 10/23/18 07:50 Labs: Abnormal Lab Results - Last 24 Hours (Table) 10/23/18 10/23/18 10/24/18 Range/Units 16:50 20:29 08:15 POC Glucose (mg/dL) 121 H 114 H (75-99) mg/dL Lipase 773 H (23-300) U/L Microbiology - Last 24 Hours (Table) 10/21/18 21:51 Gram Stain - Preliminary Knee - Left Wound Culture - Preliminary Gram Neg Bacilli Assessment and Plan (1) Nausea & vomiting Narrative/Plan: 73-year-old female with nausea vomiting and abdominal pain - 10/23 I had a very long discussion with the patient and the patient's . The patient is scheduled for a direct admission to [facility] this upcoming October 27 for evaluation of a chronic left knee wound. This left knee wound is an open wound from a knee replacement in which the joint is exposed. She is supposed to be evaluated by vascular surgery, orthopedic surgery and plastic surgery. 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 Currently, with no acute abdominal pain and resolving pancreatitis, any intervention for the gallbladder can be delayed as priority should be given to the exposed joint and chronic knee infection. I did discuss this with Dr. Tomas and we will advance the patient's diet and treat her current medical conditions to optimize this patient's condition for intervention for this chronic left knee infection. I did discuss the importance of a cholecystectomy in the future and the patient is agreeable with this plan. 10/24 patient is tolerating diet. Surgically stable for discharge. I did discuss the importance of following up as an outpatient after her left knee has been evaluated and treated for cholecystectomy. Current Visit: Yes Status: Acute Code(s): R11.2 - NAUSEA WITH VOMITING, UNSPECIFIED SNOMED Code(s): 07747308
--- NOTE | 2018-10-24 11:00 | P.DS ---
Providers Date of admission: 10/22/18 14:58 Expected date of discharge: 10/25/18 Attending physician: Deysi Tomas Consults: 10/21/18 20:01 Consult Physician Urgent Consulting Provider: Frantz Wills Consult Reason/Comments: n/v, hx bowel obstruction Do you want consulting provider notified?: Yes 10/21/18 20:02 Consult Physician Urgent Consulting Provider: Vignesh Harrison Consult Reason/Comments: aortic anerysm Do you want consulting provider notified?: Yes Primary care physician: Pastora Frazier [facility] Course: This is a 73-year-old female patient of Dr. Frazier with past history for COPD, diabetes mellitus type 2 insulin requiring, hypertension, hyperlipidemia, generalized osteoarthritis, generalized anxiety disorder. Patient has history of osteoarthritis and was recently admitted under the care of Dr. Lara status post left total knee arthroplasty on August 05. Subsequently, she was readmitted on September 09 and underwent patellar retinaculum and quadriceps tendon repair. She was readmitted in September for surgical wound ulceration eschar with flap necrosis and underwent I&D was follow-up with Dr. Martinez and discharged home on Ke. Patient continues to have wound and eschar to the left knee surgical site. She is scheduled on Saturday for repeat skin grafting to the left knee with Dr. Cleveland at [facility]. Patient presented to the hospital with complaints of vomiting for a couple days as well as bilateral lower abdominal pain. She denies any sick contacts. She denies any fever, no dysuria, no back pain. She denies any new medications and denies any alcohol intake. Patient presented to [facility] emergency center for evaluation. Patient was afebrile, heart rate 68, blood pressure 149/72, pulse ox 96%. EKG was in normal sinus rhythm with no acute ST-T wave changes. White count was normal at 5.8, hemoglobin 12.6, platelet count 238. BUN 13 creatinine 1.50, blood sugar 130. Sodium 141, potassium 4.5, chloride 112, CO2 20. Lactic acid was 0.9, lipase 543. Urinalysis negative. CAT scan of the abdomen and pelvis revealed increase in abdominal aortic aneurysm compared to old exam. There is no evidence of leaking aneurysm. There is clearing of the apparent subcutaneous hemorrhage over the left lower quadrant compared to old exam. Moderately severe colonic diverticulosis without diverticulitis. There is clearing of a 4 cm cystic mass adjacent to the sigmoid colon on the left pelvic sidewall compared to old exam. There is reversal of ileostomy compared to old. Abdominal aortic aneurysm measures 4.8 and on previous study 4.1. Gallbladder ultrasound revealed shadowing in the right upper quadrant consistent with contracted gallbladder with gallstone. No dilated ducts. There is a 1 cm cortical cyst in the right kidney. No free fluid. Abdominal aortic aneurysm. Patient was admitted to the [facility] floor and consult requested with Dr. Wills and Dr. Harrison. 10/23: Patient still has abdominal pain, and lipase is lower today from a previous of 1500-now at 724, low-fat diet recommended, were anticipating discharge these Saturday or Saturday depending on abdominal discomfort, she anticipates to have a gait admission to [facility] with Dr. Cleveland for her left knee on Saturday. Dilaudid started, continue oral fluids for hydration, patient denies any fever chills nausea vomiting, left knee remains to be stable without any purulent drainage still has necrotic debris 10/24: Dr. Wills has advance diet to low fat and patient is tolerating. She denies any nausea or vomiting. She states she did occur last pain pill last evening and this was for her knee not her abdomen. Dr. Wills has discussed having a cholecystectomy later after all things are resolved with her left knee surgery which is scheduled for Saturday. Awaiting PT and OT evaluations but patient is planning to return home. I'll repeat lipase is 773. Patient remains afebrile, heart rate 76, blood pressure 153/70, pulse ox 94% on room air. Blood sugars have been running between 91 and 121 on NovoLog scale only. Plan to monitor patient overnight, obtain PT and OT evaluations and discharged home tomorrow. Patient was evaluated by physical therapy and recommendations are for home with homecare. Dr. Wills has cleared the patient for discharge home. Prescription provided for Zofran for nausea. Levemir for home has been cut in half. Patient is anxious to be discharged and we will discharge her home today in stable condition. Discharge diagnoses: 1. Acute gallbladder pancreatitis 2. Increasing abdominal aortic aneurysm. 3. Metabolic acidosis secondary to vomiting. 4. Surgical wound ulceration and eschar with flap necrosis status post I&D on p revious admission as well as status post patellar retinaculum and quadriceps tendon repair. This is at the site of left knee total arthroplasty with Dr. Lara. Patient is scheduled for repeat flap surgery with Dr. Cleveland on Saturday. Patient was previously seen by Dr. Martinez and treated with oral antibiotics. 5. Diabetes mellitus type 2, insulin requiring. 6. Hypertension. 7. Hyperlipidemia. 8. Generalized anxiety disorder. 9. History of bowel resection, stable. 10. Tobacco use and dependence. Discharge plan: Home with [facility]. Impression and plan of care have been directed as dictated by the signing physician. Annie Ba nurse practitioner acting as scribe for signing physician. Patient Condition at Discharge: Good Plan - Discharge Summary New Discharge Prescriptions: New Ondansetron [Zofran] 4 mg PO Q8HR PRN #30 tab PRN Reason: Nausea Continue ALPRAZolam [Xanax] 0.25 mg PO Q8H PRN PRN Reason: Anxiety Ascorbic Acid [Vitamin C] 500 mg PO MOWEFR Fenofibrate [Lofibra] 54 mg PO DAILY Ubidecarenone [Co Q-10] 200 mg PO DAILY [place]-3 Fatty Acids/Fish Oil [Fish Oil 1,000 mg Softgel] 1 cap PO DAILY Losartan Potassium 50 mg PO DAILY Carvedilol 25 mg PO BID Cholecalciferol [Vitamin D3 (25 Mcg = 1000 Iu)] 2,000 mg PO DAILY Red Yeast Rice 600 mg PO DAILY Aspirin EC [Ecotrin Low Dose] 81 mg PO HS Atorvastatin Calcium [Lipitor] 20 mg PO HS Insulin Lispro [humaLOG Kwikpen] See Protocol SQ AC-TID Changed Insulin Detemir (Levemir) [Levemir] 11 unit SQ HS #0 Discharge Medication List ALPRAZolam [Xanax] 0.25 mg PO Q8H PRN 10/05/17 [History] Ascorbic Acid [Vitamin C] 500 mg PO MOWEFR 10/05/17 [History] Carvedilol 25 mg PO BID 10/05/17 [History] Fenofibrate [Lofibra] 54 mg PO DAILY 10/05/17 [History] Losartan Potassium 50 mg PO DAILY 10/05/17 [History] [place]-3 Fatty Acids/Fish Oil [Fish Oil 1,000 mg Softgel] 1 cap PO DAILY 10/05/17 [History] Ubidecarenone [Co Q-10] 200 mg PO DAILY 10/05/17 [History] Cholecalciferol [Vitamin D3 (25 Mcg = 1000 Iu)] 2,000 mg PO DAILY 07/24/18 [History] Red Yeast Rice 600 mg PO DAILY 07/24/18 [History] Aspirin EC [Ecotrin Low Dose] 81 mg PO HS 10/21/18 [History] Atorvastatin Calcium [Lipitor] 20 mg PO HS 10/21/18 [History] Insulin Lispro [humaLOG Kwikpen] See Protocol SQ AC-TID 10/21/18 [History] Insulin Detemir (Levemir) [Levemir] 11 unit SQ HS #0 10/24/18 [Rx] Ondansetron [Zofran] 4 mg PO Q8HR PRN #30 tab 10/24/18 [Rx] Follow up Appointment(s)/Referral(s): Pastora Frazier MD [Primary Care Provider] - 1 Week [facility], [NON-STAFF] - Discharge Disposition: HOME WITH HOME HEALTH SERVICES
== END 2018-10-24 11:29 | disposition home health service (06) | DRG 439 ==
LOC: EC 16:10 → 4MS4W 19:59 → OBSVTOIN 10-22 14:58 → 4SSUR 10-23 17:20
PROVIDERS: ADMIT Family Medicine; ATTEND Family Medicine
DX: K85.90 Acute pancreatitis without necrosis or infection, unspecified (principal); K80.00 Calculus of gallbladder with acute cholecystitis without obstruction; E87.2 Acidosis; N39.0 Urinary tract infection, site not specified; E11.9 Type 2 diabetes mellitus without complications; Z79.4 Long term (current) use of insulin; E78.5 Hyperlipidemia, unspecified; E86.0 Dehydration; F17.210 Nicotine dependence, cigarettes, uncomplicated; F41.1 Generalized anxiety disorder; I10 Essential (primary) hypertension; I71.4 Abdominal aortic aneurysm, without rupture; J44.9 Chronic obstructive pulmonary disease, unspecified; K57.30 Diverticulosis of large intestine without perforation or abscess without bleeding; M15.9 Polyosteoarthritis, unspecified; N28.1 Cyst of kidney, acquired; Z79.899 Other long term (current) drug therapy; Z80.6 Family history of leukemia; Z90.49 Acquired absence of other specified parts of digestive tract; Z90.710 Acquired absence of both cervix and uterus; T84.54XD Infection and inflammatory reaction due to internal left knee prosthesis, subsequent encounter; Z99.81 Dependence on supplemental oxygen; Z87.01 Personal history of pneumonia (recurrent)
CPT/HCPCS: 36415; 74176; 76705; 80048; 80053; 81003; 83605; 83690; 85025; 85027; 87070; 87077; 87186; 87205; 93005; 96361; 96374; 99285

== ENCOUNTER 2018-10-25 17:33 | Emergency (ER) | payer MEDICARE ==
--- NOTE | 2018-10-25 17:40 | ED ---
Fall HPI - General Chief Complaint: Fall Stated Complaint: Fall, Left Knee Injury Time Seen by Provider: 10/25/18 17:37 - History of Present Illness Initial Comments: 73-year-old female with history of wound dehiscence chronically, multiple knee infections s/P left TKA July 2018, last surgery August 2018 presenting today for chief complaint of fall. Patient states that her right knee gave out and she fell onto the anterior aspect. She states she was on the steps. Patient denies falling hitting her head injury to the neck or back. Patient denies any other complaints doesn't tell pain she denies chest pain shortness breath dizziness nausea headache or any symptoms prior to falling. States is because her leg gave out. Remaining ROS (-), upon arrival patient appears well. Patient denies annticoagulation use. - Related Data Home Medications Medication Instructions Recorded Confirmed ALPRAZolam [Xanax] 0.25 mg PO Q8H PRN 10/05/17 10/21/18 Ascorbic Acid [Vitamin C] 500 mg PO MOWEFR 10/05/17 10/21/18 Carvedilol 25 mg PO BID 10/05/17 10/21/18 Fenofibrate [Lofibra] 54 mg PO DAILY 10/05/17 10/21/18 Losartan Potassium 50 mg PO DAILY 10/05/17 10/21/18 [place]-3 Fatty Acids/Fish Oil [Fish 1 cap PO DAILY 10/05/17 10/21/18 Oil 1,000 mg Softgel] Ubidecarenone [Co Q-10] 200 mg PO DAILY 10/05/17 10/21/18 Cholecalciferol [Vitamin D3 (25 2,000 mg PO DAILY 07/24/18 10/21/18 Mcg = 1000 Iu)] Red Yeast Rice 600 mg PO DAILY 07/24/18 10/21/18 Aspirin EC [Ecotrin Low Dose] 81 mg PO HS 10/21/18 10/21/18 Atorvastatin Calcium [Lipitor] 20 mg PO HS 10/21/18 10/21/18 Insulin Lispro [humaLOG Kwikpen] See Protocol SQ AC-TID 10/21/18 10/21/18 Previous Rx's Medication Instructions Recorded Insulin Detemir (Levemir) [Levemir] 11 unit SQ HS #0 10/24/18 Ondansetron [Zofran] 4 mg PO Q8HR PRN #30 tab 10/24/18 Allergies Allergy/AdvReac Type Severity Reaction Status Date / Time No Known Allergies Allergy Verified 10/21/18 16:58 Review of Systems ROS Statement: Those systems with pertinent positive or pertinent negative responses have been documented in the HPI. ROS Other: All systems not noted in ROS Statement are negative. Past Medical History Past Medical History: COPD, Diabetes Mellitus, Hyperlipidemia, Hypertension, Pneumonia Additional Past Medical History / Comment(s): currently being treated for UTI History of Any Multi-Drug Resistant Organisms: None Reported Past Surgical History: Bowel Resection, Hysterectomy, Joint Replacement, Orthopedic Surgery Additional Past Surgical History / Comment(s): colon resection with ileostomy/later reversal, surgery for fx left femur, left knee replacement 07/2018, Past Anesthesia/Blood Transfusion Reactions: No Reported Reaction Past Psychological History: No Psychological Hx Reported Smoking Status: Former smoker Past Alcohol Use History: None Reported Past Drug Use History: None Reported - Past Family History Mother Additional Family Medical History / Comment(s): heart problems Father Family Medical History: Cancer Additional Family Medical History / Comment(s): lung Sister(s) Family Medical History: Cancer Additional Family Medical History / Comment(s): leukemia General Exam - General Exam Comments Initial Comments: General: The patient is awake and alert, in no distress, and does not appear acutely ill. Eye: +3 mm pupils are equal, round and reactive to light, extra-ocular movements are intact. No nystagmus. There is normal conjunctiva bilaterally. No signs of icterus. Ears, nose, mouth and throat: There are moist mucous membranes and no oral lesions. No raccoon or Green sign. Nose midline tenderness to palpation of the cervical thoracic or lumbar spine. Neck: The neck is supple, there is no tenderness or JVD. Cardiovascular: There is a regular rate and rhythm. No murmur, rub or gallop is appreciated. Respiratory: Lungs are clear to auscultation, respirations are non-labored, breath sounds are equal. No wheezes, stridor, rales, or rhonchi. Gastrointestinal: Soft, non-distended, non-tender abdomen without masses or organomegaly noted. There is no rebound or guarding present. Musculoskeletal: Normal ROM, no tenderness. Strength 5/5. Sensation intact. Pulses equal bilaterally 2+. Neurological: A&O x 3. CN II-XII intact, There are no obvious motor or sensory deficits. Coordination appears grossly intact. Speech is normal. Skin: Skin is warm and dry and no rashes. We did his wound of the left anterior knee with eschar. No active bleeding, new laceration. Psychiatric: Cooperative, appropriate mood & affect, normal judgment. Course Vital Signs 10/25/18 17:38 Temperature 98.5 F Pulse Rate 66 Respiratory 16 Rate Blood Pressure 146/66 O2 Sat by Pulse 97 Oximetry Medical Decision Making - Medical Decision Making 73-year-old female presenting today for chief complaint of fall x 1 hour ago. Patient states that she had her left knee give out. Patient fell onto the anterior aspect. Patient states she has had multiple surgeries and compli cations from her total knee arthroplasty. Patient states she has a appointment on Saturday for plastics, wound care and international specialist at [facility]. And states she is to be admitted. Patient is unable ambulate in the ER. She states her left knee is going to give out. 3 no acute osseous process. Patient denies any hip pain/back pain. At this time we feel patient should be transferred to [facility] where she will receive further treatment for chronic left knee wound and inability to ambulate. She was evaluated and personally attending provider Dr. Cook. He is agreeable to transfer. I did speak with transferring accepting physician Dr. Pablo who accepted admission. Patient transferred via EMS. Disposition Clinical Impression: Inability to ambulate due to knee, Fall Disposition: OTHER INSTITUTION NOT DEFINED Condition: Good Instructions (If sedation given, give patient instructions): Fall Prevention for Older Adults (ED) Is patient prescribed a controlled substance at d/c from ED?: No Referrals: Pastora Frazier MD [Primary Care Provider] - 1-2 days Time of Disposition: 18:43 - Out of Hospital Transfer - Req. Specs Out of Hospital Transfer - Requested Specifics: Other Emergency Center ([facility]-Dr. Pablo)
--- NOTE | 2018-10-25 18:39 | XR ---
EXAMINATION TYPE: XR knee complete LT DATE OF EXAM: 10/25/2018 COMPARISON: 08/05/2018 HISTORY: Knee pain TECHNIQUE: 3 views FINDINGS: There is left knee prosthesis. Components appear in anatomic position. There is probably la ceration over the anterior patella. There is vascular calcification. I see no fracture. IMPRESSION: There is probably laceration. No fracture seen.
[2018-10-25 19:07] VITALS: BP 170/87; PULSE 81; RESP 18
[2018-10-25] MEDS ORDERED: HYDROcodone/APAP 7.5-325MG 1 EACH TAB PO ONE (19:13)
[2018-10-25 19:21] VITALS: TEMP 98.1
== END 2018-10-25 19:21 | disposition other institution (70) ==
LOC: EC 17:33
DX: R26.2 Difficulty in walking, not elsewhere classified (principal); E11.9 Type 2 diabetes mellitus without complications; E78.5 Hyperlipidemia, unspecified; I10 Essential (primary) hypertension; Z87.891 Personal history of nicotine dependence; Z79.4 Long term (current) use of insulin; Z79.82 Long term (current) use of aspirin; Z79.899 Other long term (current) drug therapy; Z96.652 Presence of left artificial knee joint; W19.XXXA Unspecified fall, initial encounter
CPT/HCPCS: 99284

== ENCOUNTER 2019-04-21 15:54 | Emergency (ER) | payer MEDICARE ==
[2019-04-21 16:04] VITALS: BP 125/74; PULSE 63; RESP 16; TEMP 97.4
--- NOTE | 2019-04-21 16:18 | ED ---
General Adult HPI - General Chief complaint: Extremity Problem,Nontraumatic Stated complaint: sent over from wound center for doppler Time Seen by Provider: 04/21/19 16:06 Source: patient, RN notes reviewed, old records reviewed Mode of arrival: wheelchair Limitations: no limitations - History of Present Illness Initial comments: 74-year-old female sent from the wound center for evaluation of DVT in the left lower extremity. Patient has been following with the wound center for a left anterior incisional wound after orthopedic surgery of the left knee. She was noted to have some increased swelling to the left leg and sent for evaluation of DVT. No fever or chills. No dyspnea. No chest pain. No other complaints. She is not on anticoagulation. - Related Data Home Medications Medication Instructions Recorded Confirmed ALPRAZolam [Xanax] 0.25 mg PO Q8H PRN 10/05/17 10/21/18 Ascorbic Acid [Vitamin C] 500 mg PO MOWEFR 10/05/17 10/21/18 Carvedilol 25 mg PO BID 10/05/17 10/21/18 Fenofibrate [Lofibra] 54 mg PO DAILY 10/05/17 10/21/18 Losartan Potassium 50 mg PO DAILY 10/05/17 10/21/18 [place]-3 Fatty Acids/Fish Oil [Fish 1 cap PO DAILY 10/05/17 10/21/18 Oil 1,000 mg Softgel] Ubidecarenone [Co Q-10] 200 mg PO DAILY 10/05/17 10/21/18 Cholecalciferol [Vitamin D3 (25 2,000 mg PO DAILY 07/24/18 10/21/18 Mcg = 1000 Iu)] Red Yeast Rice 600 mg PO DAILY 07/24/18 10/21/18 Aspirin EC [Ecotrin Low Dose] 81 mg PO HS 10/21/18 10/21/18 Atorvastatin Calcium [Lipitor] 20 mg PO HS 10/21/18 10/21/18 Insulin Lispro [humaLOG Kwikpen] See Protocol SQ AC-TID 10/21/18 10/21/18 Previous Rx's Medication Instructions Recorded Insulin Detemir (Levemir) [Levemir] 11 unit SQ HS #0 10/24/18 Ondansetron [Zofran] 4 mg PO Q8HR PRN #30 tab 10/24/18 Allergies Allergy/AdvReac Type Severity Reaction Status Date / Time No Known Allergies Allergy Verified 04/21/19 16:04 Review of Systems ROS Statement: Those systems with pertinent positive or pertinent negative responses have been documented in the HPI. ROS Other: All systems not noted in ROS Statement are negative. Past Medical History Past Medical History: COPD, Diabetes Mellitus, Hyperlipidemia, Hypertension, Pneumonia Additional Past Medical History / Comment(s): currently being treated for UTI History of Any Multi-Drug Resistant Organisms: None Reported Past Surgical History: Bowel Resection, Hysterectomy, Joint Replacement, Orthopedic Surgery Additional Past Surgical History / Comment(s): colon resection with ileostomy/later reversal, surgery for fx left femur, left knee replacement 07/2018, Past Anesthesia/Blood Transfusion Reactions: No Reported Reaction Past Psychological History: No Psychological Hx Reported Smoking Status: Former smoker Past Alcohol Use History: None Reported Past Drug Use History: None Reported - Past Family History Mother Additional Family Medical History / Comment(s): heart problems Father Family Medical History: Cancer Additional Family Medical History / Comment(s): lung Sister(s) Family Medical History: Cancer Additional Family Medical History / Comment(s): leukemia General Exam Limitations: no limitations General appearance: alert, in no apparent distress Head exam: Present: atraumatic, normocephalic Eye exam: Present: normal appearance, PERRL ENT exam: Present: normal exam Neck exam: Present: normal inspection. Absent: tenderness, meningismus Respiratory exam: Present: normal lung sounds bilaterally. Absent: respiratory distress, wheezes Cardiovascular Exam: Present: regular rate, normal rhythm GI/Abdominal exam: Present: soft. Absent: distended, tenderness, guarding Extremities exam: Present: other. Absent: pedal edema, calf tenderness Neurological exam: Present: alert, oriented X3, CN II-XII intact, normal gait. Absent: motor sensory deficit Psychiatric exam: Present: normal affect, normal mood Skin exam: Present: warm, dry, intact. Absent: cyanosis, diaphoretic Course Vital Signs 04/21/19 16:01 Temperature 97.4 F L Pulse Rate 63 Respiratory 16 Rate Blood Pressure 125/74 O2 Sat by Pulse 100 Oximetry Medical Decision Making - Medical Decision Making 74-year-old female sent from the wound center for evaluation of DVT in the left lower extremity. Ultrasound performed in the emergency department this is negative for DVT. Patient eager for discharge, will follow at the wound center and with her primary care physician. Disposition Clinical Impression: Status post left knee replacement, Osteoarthritis of left knee Disposition: HOME SELF-CARE Condition: Good Instructions (If sedation given, give patient instructions): Chronic Wound Care (ED) Is patient prescribed a controlled substance at d/c from ED?: No Referrals: Pastora Frazier MD [Primary Care Provider] - 1-2 days Time of Disposition: 16:58
--- NOTE | 2019-04-21 16:52 | US ---
EXAMINATION TYPE: US venous doppler duplex LE LT DATE OF EXAM: 04/21/2019 4:14 PM COMPARISON: NONE CLINICAL HISTORY: DVT. very mild left leg swelling, open wound on top of left knee, no h/o dvt SIDE PERFORMED: Left TECHNIQUE: The lower extremity deep venous system is examined utilizing real time linear array sonog ryan with graded compression, doppler sonography and color-flow sonography. VESSELS IMAGED: External Iliac Vein (EIV) Common Femoral Vein Deep Femoral Vein Greater Saphenous Vein * Femoral Vein Popliteal Vein Small Saphenous Vein * Proximal Calf Veins (* superficial vessels) Left Leg: Appears negative for DVT IMPRESSION: No evidence of deep venous thrombosis in the left leg.
== END 2019-04-21 17:15 | disposition home or self-care (01) ==
LOC: EC 15:54
DX: M17.12 Unilateral primary osteoarthritis, left knee (principal); Z96.652 Presence of left artificial knee joint; E11.9 Type 2 diabetes mellitus without complications; E78.5 Hyperlipidemia, unspecified; I10 Essential (primary) hypertension; N39.0 Urinary tract infection, site not specified; Z87.891 Personal history of nicotine dependence; Z79.4 Long term (current) use of insulin; Z79.82 Long term (current) use of aspirin; Z79.899 Other long term (current) drug therapy
CPT/HCPCS: 99284

== ENCOUNTER → 2019-06-01 | Outpatient (CLI) | payer MEDICARE ==
--- NOTE | 2019-06-01 15:31 | US ---
EXAMINATION TYPE: US kidneys/renal and bladder DATE OF EXAM: 06/01/2019 COMPARISON: CT dated 10/21/2018 CLINICAL HISTORY: N17.9 Acute Kidney injury. EXAM MEASUREMENTS: Right Kidney: 9.5 3.8 x 4.2 cm Left Kidney: 7.4 x 4.0 x 3.4 cm Post Void Residual Volume: 0 mL Patient stated that she hasn't urinated since 9 this morning. Her bladder is completely empty. Right Kidney: cyst measuring 0.8 x 0.8 x 1.0cm Left Kidney: measures small anechoic lesion measures 1.8 x 1.7 x 1.8cm Bladder: not visualized Bilateral Jets seen: no Normal Post Void Residual: yes IMPRESSION: 1. No hydronephrosis of either kidney. Urinary bladder is nonvisualized due to complete collapse. The patient notes absence of bleeding since 9:00 AM this morning. Nephrology consultation is recommended . 2. Bilateral simple appearing renal cysts.
== END | disposition home or self-care (01) ==
LOC: RADUSWWP 14:19
PROVIDERS: ATTEND Internal Medicine
DX: N28.1 Cyst of kidney, acquired (principal); N17.9 Acute kidney failure, unspecified
CPT/HCPCS: 76770

== ENCOUNTER → 2019-06-04 | Outpatient (CLI) | payer MEDICARE ==
[2019-06-04 12:59] LABS: Basophils % (A) 0 %; Eosinophils # (A) 0.1 k/uL (0-0.7); Eosinophils % (A) 1 %; HCT 30.9 % (34.0-46.0); Hypochromasia Slight; Lymphocytes # (A) 1.3 k/uL (1.0-4.8); Lymphocytes % (A) 25 %; MCH 32.2 pg (25.0-35.0); MCHC 32.3 g/dL (31.0-37.0); MCV 99.7 fL (80.0-100.0); Mean Platelet Volume 8.4; Monocytes # (A) 0.3 k/uL (0-1.0); Monocytes % (A) 6 %; Neutrophils # (A) 3.4 k/uL (1.3-7.7); Neutrophils % (A) 65 %; Platelet Count 259 k/uL (150-450); RDW 13.7 % (11.5-15.5); WBC 5.2 k/uL (3.8-10.6)
[2019-06-04 13:16] LABS: Appearance,Urine Clear (Clear); Bacteria,Urine Rare /hpf; Bilirubin,Urine Negative (Negative); Blood,Urine Negative (Negative); Color,Urine Yellow; Glucose,Urine (UA) 3+ (Negative); Ketones,Urine Negative (Negative); Leukocyte Esterase,Urine Negative (Negative); Mucus,Urine Rare /hpf; Nitrite,Urine Positive (Negative); Protein,Urine 1+ (Negative); RBC,Urine <1 /hpf (0-5); Specific Gravity,Urine 1.017 (1.001-1.035); Squamous Epithelial Cell,Urine 3 /hpf (0-4); Urobilinogen,Urine <2.0 mg/dL (<2.0); WBC,Urine 23 /hpf (0-5)
[2019-06-04 13:33] LABS: Protein/Creatinine Ratio,Urine 0.84
[2019-06-04 18:39] LABS: % Iron Saturation 13.33 (12.00-45.00); African American GFR (CKD) 20.2 (60.0-200.0); Anion Gap 5.6 mmol/L (4.00-12.00); BUN/Creat Ratio 21.54 Ratio (12.00-20.00); Calcium 9.2 mg/dL (8.7-10.3); Carbon Dioxide 23.4 mmol/L (21.6-31.8); Magnesium 2.5 mg/dL (1.5-2.4); Non-African American GFR(CKD) 17.5 (60.0-200.0); Phosphorus 5.1 mg/dL (2.4-5.1); Potassium 5.6 mmol/L (3.5-5.5); Uric Acid 4.7 mg/dL (2.9-7.7)
[2019-06-04 18:48] LABS: Ferritin 106.8 ng/mL (10.0-291.0)
== END | disposition home or self-care (01) ==
LOC: LABWHC1 12:21
PROVIDERS: ATTEND Internal Medicine
DX: N39.0 Urinary tract infection, site not specified (principal); M10.9 Gout, unspecified; R80.9 Proteinuria, unspecified; N25.81 Secondary hyperparathyroidism of renal origin; E55.9 Vitamin D deficiency, unspecified; N17.9 Acute kidney failure, unspecified; D64.9 Anemia, unspecified
CPT/HCPCS: 36415; 80048; 81001; 82306; 82570; 82728; 83540; 83550; 83735; 83970; 84100; 84156; 84550; 85025

== ENCOUNTER 2019-08-12 18:01 | Inpatient (IN) | payer MEDICARE ==
--- NOTE | 2019-08-12 18:49 | XR ---
EXAMINATION TYPE: XR knee complete LT DATE OF EXAM: 08/12/2019 CLINICAL HISTORY: pain and fever TECHNIQUE: Three views of the left knee are obtained. COMPARISON: 10/25/2018 FINDINGS: There has been revision of previously noted total left knee arthroplasty with intra-articul ar bone cement. Femoral tibial intramedullary david noted. I do not see evidence for bone destruction a t this time to suggest infection. If there is continued concern for infection consider WBC scan. IMPRESSION: As above ICD 10 NO FRACTURE, INITIAL EVALUATION
[2019-08-12] MEDS ORDERED: ACETAMINOPHEN TAB 500 MG TAB PO STA (19:01)
--- NOTE | 2019-08-12 19:17 | ED ---
Extremity Problem HPI - General Chief complaint: Extremity Problem,Nontraumatic Stated complaint: lt knee pain Time Seen by Provider: 08/12/19 18:51 Source: patient, EMS, RN notes reviewed, old records reviewed Mode of arrival: EMS Limitations: physical limitation - History of Present Illness Initial comments: Patient is a 74-year-old female who presents emergency Department today with chief complaint of left knee pain worsening for the past 2 days. She reports that she has a known history of a wound over her patella. She is seeking care for this. She also states that she wishes on antibiotics at this time and she believes is for her knee but she is not sure. She states that she had a knee replacement surgery and glaucoma but cannot tell me who her surgeon was not was over a year ago. Patient states she's had worsening knee pain over the past 2 days. Patient was arriving via EMS and was found to be febrile with temperature 100.0. She also has a known history of COPD does report some dyspnea. She states that seems to be chronic for her due to the history of COPD. She denies any history of sick contacts including exposure to COVID. - Related Data Home Medications Medication Instructions Recorded Confirmed ALPRAZolam [Xanax] 0.25 mg PO Q8H PRN 10/05/17 10/21/18 Ascorbic Acid [Vitamin C] 500 mg PO MOWEFR 10/05/17 10/21/18 Carvedilol 25 mg PO BID 10/05/17 10/21/18 Fenofibrate [Lofibra] 54 mg PO DAILY 10/05/17 10/21/18 Losartan Potassium 50 mg PO DAILY 10/05/17 10/21/18 [facility] Fatty Acids/Fish Oil [Fish 1 cap PO DAILY 10/05/17 10/21/18 Oil 1,000 mg Softgel] Ubidecarenone [Co Q-10] 200 mg PO DAILY 10/05/17 10/21/18 Cholecalciferol [Vitamin D3 (25 2,000 mg PO DAILY 07/24/18 10/21/18 Mcg = 1000 Iu)] Red Yeast Rice 600 mg PO DAILY 07/24/18 10/21/18 Aspirin EC [Ecotrin Low Dose] 81 mg PO HS 10/21/18 10/21/18 Atorvastatin Calcium [Lipitor] 20 mg PO HS 10/21/18 10/21/18 Insulin Lispro [humaLOG Kwikpen] See Protocol SQ AC-TID 10/21/18 10/21/18 Previous Rx's Medication Instructions Recorded Insulin Detemir (Levemir) [Levemir] 11 unit SQ HS #0 10/24/18 Ondansetron [Zofran] 4 mg PO Q8HR PRN #30 tab 10/24/18 Allergies Allergy/AdvReac Type Severity Reaction Status Date / Time No Known Allergies Allergy Verified 08/12/19 18:11 Review of Systems ROS Statement: Those systems with pertinent positive or pertinent negative responses have been documented in the HPI. ROS Other: All systems not noted in ROS Statement are negative. Past Medical History Past Medical History: COPD, Diabetes Mellitus, Hyperlipidemia, Hypertension, Pneumonia Additional Past Medical History / Comment(s): currently being treated for UTI History of Any Multi-Drug Resistant Organisms: None Reported Past Surgical History: Bowel Resection, Hysterectomy, Joint Replacement, Orthopedic Surgery Additional Past Surgical History / Comment(s): colon resection with ileostomy/later reversal, surgery for fx left femur, left knee replacement 07/2018, Past Anesthesia/Blood Transfusion Reactions: No Reported Reaction Past Psychological History: No Psychological Hx Reported Smoking Status: Former smoker Past Alcohol Use History: None Reported Past Drug Use History: None Reported - Past Family History Mother Additional Family Medical History / Comment(s): heart problems Father Family Medical History: Cancer Additional Family Medical History / Comment(s): lung Sister(s) Family Medical History: Cancer Additional Family Medical History / Comment(s): leukemia General Exam - General Exam Comments Initial Comments: 74 year old female, no distress. Limitations: physical limitation General appearance: alert, in no apparent distress Head exam: Present: atraumatic, normocephalic, normal inspection Eye exam: Present: normal appearance ENT exam: Present: normal exam, mucous membranes moist Neck exam: Present: normal inspection. Absent: tenderness, meningismus, lymphadenopathy Respiratory exam: Present: wheezes. Absent: normal lung sounds bilaterally, respiratory distress, rales, rhonchi, stridor Cardiovascular Exam: Present: regular rate, normal rhythm, normal heart sounds. Absent: systolic murmur, diastolic murmur, rubs, gallop, clicks GI/Abdominal exam: Present: soft, normal bowel sounds. Absent: distended, tenderness, guarding, rebound, rigid Extremities exam: Present: full ROM, normal capillary refill. Absent: normal inspection, tenderness, pedal edema, joint swelling, calf tenderness Left Upper Leg exam: Present: normal inspection, full ROM Knee exam: Absent: normal inspection (wound over L knee measuring 2 cm with wound dihiscence minimal drainge. ), full ROM (unable to bend knee due to hardware) Lower Leg exam: Present: normal inspection, full ROM Ankle exam: Present: normal inspection, full ROM Foot/Toe exam: Present: normal inspection, full ROM Neurovascular tendon exam: Present: no vascular compromise Gait: not tested/not observed Back exam: Present: normal inspection, full ROM Neurological exam: Present: alert, oriented X3, CN II-XII intact Psychiatric exam: Present: normal affect Skin exam: Present: warm, dry, intact, normal color. Absent: rash Course Vital Signs 08/12/19 08/12/19 08/12/19 18:08 19:46 21:02 Temperature 100.0 F H 98.5 F Pulse Rate 86 85 79 Respiratory 18 18 16 Rate Blood Pressure 146/81 155/82 116/59 O2 Sat by Pulse 96 96 94 L Oximetry 08/12/19 22:20 Temperature Pulse Rate 81 Respiratory 18 Rate Blood Pressure 101/76 O2 Sat by Pulse 96 Oximetry - Reevaluation(s) Reevaluation #1: 08/12/19 22:42 I discussed everything with patient's daughter Bria who is a RN. Bria does live with the Patient. She was informed the concern for a fever and complaining of worsening leg pain that this would be related to a septic hardware as she does have an open wound on the knee. Patient's daughter stated this chronic wound has been there and they do occasionally follow-up with wound care. She reports that the orthopedic surgeon Dr. Gaspar and [facility] stated that she would not tolerate any surgery and that the hardware in the knee with have to remain there for the rest of her life. Patient's daughter and Patient agree that she would not want to be transferred to [place] to see her orthopedic surgeon and she is mainly undergoing wound care treatment and comfort care. I informed the daughter of all lab results and it seems that likely the fever is related to possible urinary tract infection as well as infected knee. Patient was started on Zosyn and vancomycin. Culture of the knee wound was completed as well as urine culture and blood culture were completed. 08/12/19 22:44 Discussed the case with Dr. Cristina discussed the case with Dr. Block the Patient would need to be needed for comfort care and IV antibiotics. Patient's daughter did express that she would like to be able to administer IV antibiotics if necessary at home and help take care of her mother. Medical Decision Making - Medical Decision Making Patient is a 74-year-old female with a chronic left knee wound, presents emergency department if worsening left leg pain into her thigh with ambulation as well as fever. Patient had full sepsis workup. She also has history of COPD complained of some minor dyspnea but no worse than her usual dyspnea. Colvid testing is negative. Chest x-ray shows no pneumonia. Patient's white blood cell count was 10.6. Patient does have a history of chronic kidney disease with BUN 40 creatinine of 2.3. This is stable for Patient. Patient was found to have a very elevated CRP of 230. Her lactic acid was 1.3. Elevated CRP and drainage around the wound on her left knee is concerning for septic protesthesis in L knee. I had a lengthy discussion with patient's daughter, Bria whom stated that she should not have any transfer or care with Dr. Gaspar her orthopedic in [place]. She stated that she is only for comfort care and cannot bend the knee and would only want to have IV antibiotics however they suspected infection, but no further surgeries. Patient was informed of this is agreeable to admission. At this time Patient was started on Zosyn and vancomycin. She was also found to have a minor urinary tract infection with urine culture be completed as well. Patient will be admitted at this time for comfort care and suspected infection over the left knee prosthesis. Patient daughter did discuss that she would hope to help manage patient's care at home and she is an RN and very comfortable doing IV antibiotics if necessary at patient's discharge. - Lab Data Result diagrams: 08/12/19 19:40 08/12/19 19:40 Lab Results 08/12/19 08/12/19 08/12/19 Range/Units 19:40 19:40 19:40 WBC 10.6 (3.8-10.6) k/uL RBC 3.46 L (3.80-5.40) m/uL Hgb 10.4 L (11.4-16.0) gm/dL Hct 32.5 L (34.0-46.0) % MCV 94.0 (80.0-100.0) fL MCH 30.1 (25.0-35.0) pg MCHC 32.0 (31.0-37.0) g/dL RDW 12.6 (11.5-15.5) % Plt Count 254 (150-450) k/uL Neutrophils % 89 % Lymphocytes % 5 % Monocytes % 4 % Eosinophils % 0 % Basophils % 0 % Neutrophils # 9.5 H (1.3-7.7) k/uL Lymphocytes # 0.6 L (1.0-4.8) k/uL Monocytes # 0.5 (0-1.0) k/uL Eosinophils # 0.0 (0-0.7) k/uL Basophils # 0.0 (0-0.2) k/uL ESR 116 H (0-20) mm/hr PT 9.7 (9.0-12.0) sec INR 0.9 (<1.2) APTT 23.1 (22.0-30.0) sec Sodium (137-145) mmol/L Potassium (3.5-5.1) mmol/L Chloride (98-107) mmol/L Carbon Dioxide (22-30) mmol/L Anion Gap mmol/L BUN (7-17) mg/dL Creatinine (0.52-1.04) mg/dL Est GFR (CKD-EPI)AfAm (>60 ml/min/1.73 sqM) Est GFR (CKD-EPI)NonAf (>60 ml/min/1.73 sqM) Glucose (74-99) mg/dL Plasma Lactic Acid Harshal (0.7-2.0) mmol/L Calcium (8.4-10.2) mg/dL Magnesium (1.6-2.3) mg/dL Total Bilirubin (0.2-1.3) mg/dL AST (14-36) U/L ALT (4-34) U/L Alkaline Phosphatase (38-126) U/L Lactate Dehydrogenase (313-618) U/L C-Reactive Protein (<10.0) mg/L Total Protein (6.3-8.2) g/dL Albumin (3.5-5.0) g/dL Urine Color Urine Appearance (Clear) Urine pH (5.0-8.0) Ur Specific [place] (1.001-1.035) Urine Protein (Negative) Urine Glucose (UA) (Negative) Urine Ketones (Negative) Urine Blood (Negative) Urine Nitrite (Negative) Urine Bilirubin (Negative) Urine Urobilinogen (<2.0) mg/dL Ur Leukocyte Esterase (Negative) Urine RBC (0-5) /hpf Urine WBC (0-5) /hpf Ur Squamous Epith Cells (0-4) /hpf Urine Bacteria (None) /hpf Urine Mucus (None) /hpf Coronavirus (PCR) Not Detected (Not Detectd) 08/12/19 08/12/19 08/12/19 Range/Units 19:40 19:40 19:40 WBC (3.8-10.6) k/uL RBC (3.80-5.40) m/uL Hgb (11.4-16.0) gm/dL Hct (34.0-46.0) % MCV (80.0-100.0) fL MCH (25.0-35.0) pg MCHC (31.0-37.0) g/dL RDW (11.5-15.5) % Plt Count (150-450) k/uL Neutrophils % % Lymphocytes % % Monocytes % % Eosinophils % % Basophils % % Neutrophils # (1.3-7.7) k/uL Lymphocytes # (1.0-4.8) k/uL Monocytes # (0-1.0) k/uL Eosinophils # (0-0.7) k/uL Basophils # (0-0.2) k/uL ESR (0-20) mm/hr PT (9.0-12.0) sec INR (<1.2) APTT (22.0-30.0) sec Sodium 134 L (137-145) mmol/L Potassium 4.9 (3.5-5.1) mmol/L Chloride 106 (98-107) mmol/L Carbon Dioxide 23 (22-30) mmol/L Anion Gap 5 mmol/L BUN 48 H (7-17) mg/dL Creatinine 2.38 H (0.52-1.04) mg/dL Est GFR (CKD-EPI)AfAm 22 (>60 ml/min/1.73 sqM) Est GFR (CKD-EPI)NonAf 20 (>60 ml/min/1.73 sqM) Glucose 185 H (74-99) mg/dL Plasma Lactic Acid Harshal 1.3 (0.7-2.0) mmol/L Calcium 9.8 (8.4-10.2) mg/dL Magnesium 2.5 H (1.6-2.3) mg/dL Total Bilirubin 0.8 (0.2-1.3) mg/dL AST 81 H (14-36) U/L ALT 83 H (4-34) U/L Alkaline Phosphatase 297 H (38-126) U/L Lactate Dehydrogenase 646 H (313-618) U/L C-Reactive Protein 230.3 H (<10.0) mg/L Total Protein 7.8 (6.3-8.2) g/dL Albumin 4.0 (3.5-5.0) g/dL Urine Color Yellow Urine Appearance Cloudy H (Clear) Urine pH 5.5 (5.0-8.0) Ur Specific [place] 1.025 (1.001-1.035) Urine Protein 2+ H (Negative) Urine Glucose (UA) 1+ H (Negative) Urine Ketones Negative (Negative) Urine Blood Negative (Negative) Urine Nitrite Positive H (Negative) Urine Bilirubin Negative (Negative) Urine Urobilinogen <2.0 (<2.0) mg/dL Ur Leukocyte Esterase Trace H (Negative) Urine RBC <1 (0-5) /hpf Urine WBC 7 H (0-5) /hpf Ur Squamous Epith Cells 4 (0-4) /hpf Urine Bacteria Moderate H (None) /hpf Urine Mucus Rare H (None) /hpf Coronavirus (PCR) (Not Detectd) 08/12/19 19:55 EKG shows normal sinus rhythm pulmonary disease pattern. Incomplete right bundle branch block. Left anterior fascicular block. Septal infarct age- indeterminate. Retrograde 82 bpm. Intervals 154 ms. QRS duration is 94 ms. QT QTc is 398/464 ms. - Radiology Data Radiology results: report reviewed Left knee x-ray shows revision of previously noted total left knee arthroplasty with interarticular bone segment. Femoral tibial intramedullary line is david is noted. No evidence for bone destruction at this time to suggest infection. If continued concern for infection consider WBC scan. One view chest x-ray shows chronic changes without evidence of acute cardi opulmonary disease. No evidence of DVT at this time. Disposition Clinical Impression: Ulcer of left knee, Infection of left knee, UTI (urinary tract infection), Elevated C-reactive protein (CRP) Disposition: ADMITTED IP TO THIS HOSP Condition: Stable Referrals: Pastora Frazier MD [Primary Care Provider] - 1-2 days
--- NOTE | 2019-08-12 19:20 | XR ---
EXAMINATION TYPE: XR chest 1V portable DATE OF EXAM: 08/12/2019 HISTORY: Shortness of breath. COMPARISON: 11/04/2017 TECHNIQUE: Single view of the chest is submitted. FINDINGS: Demonstrated are scattered senescent parenchymal change. Chronic appearing parenchymal linear densit y left medial lung base. There is no evidence for focal infiltrate. The heart is stable. Hilar and mediastinal structures are within normal limits. Degenerative changes are seen of the dorsal spine. IMPRESSION: 1. Chronic changes without evidence for acute pulmonary disease.
[2019-08-12] MEDS: SODIUM CHLORIDE 0.9% 500 ML 500 ML IV SCH (19:21)
[2019-08-12 20:06] LABS: Basophils % (A) 0 %; Eosinophils % (A) 0 %; HCT 32.5 % (34.0-46.0); HGB 10.4 gm/dL (11.4-16.0); Lymphocytes # (A) 0.6 k/uL (1.0-4.8); Lymphocytes % (A) 5 %; MCH 30.1 pg (25.0-35.0); Mean Platelet Volume 8.5; Monocytes # (A) 0.5 k/uL (0-1.0); Monocytes % (A) 4 %; Neutrophils # (A) 9.5 k/uL (1.3-7.7); Neutrophils % (A) 89 %; Platelet Count 254 k/uL (150-450); RBC 3.46 m/uL (3.80-5.40); RDW 12.6 % (11.5-15.5); WBC 10.6 k/uL (3.8-10.6)
[2019-08-12 20:10] LABS: Appearance,Urine Cloudy (Clear); Bacteria,Urine Moderate /hpf; Bilirubin,Urine Negative (Negative); Blood,Urine Negative (Negative); Color,Urine Yellow; Glucose,Urine (UA) 1+ (Negative); Ketones,Urine Negative (Negative); Leukocyte Esterase,Urine Trace (Negative); Mucus,Urine Rare /hpf; Nitrite,Urine Positive (Negative); PH, Urine 5.5 (5.0-8.0); Protein,Urine 2+ (Negative); RBC,Urine <1 /hpf (0-5); Specific Gravity,Urine 1.025 (1.001-1.035); Squamous Epithelial Cell,Urine 4 /hpf (0-4); Urobilinogen,Urine <2.0 mg/dL (<2.0); WBC,Urine 7 /hpf (0-5)
[2019-08-12 20:16] LABS: INR 0.9 (<1.2); Partial Thromboplastin Time 23.1 sec (22.0-30.0); Prothrombin Time 9.7 sec (9.0-12.0)
[2019-08-12 20:20] LABS: Calcium 9.8 mg/dL (8.4-10.2); Magnesium 2.5 mg/dL (1.6-2.3); Potassium 4.9 mmol/L (3.5-5.1); Total Bilirubin 0.8 mg/dL (0.2-1.3); Total Protein 7.8 g/dL (6.3-8.2)
[2019-08-12 20:48] LABS: C Reactive Protein 230.3 mg/L (<10.0)
[2019-08-12] MEDS ORDERED: MORPHINE SULFATE 4 MG/ML SYRINGE IVP STA (20:52)
[2019-08-12 20:54] LABS: Erythrocyte Sedimentation Rate 116 mm/hr (0-20)
[2019-08-12] MEDS ORDERED: VANCOMYCIN IV PER PHARMACY 1 EACH MISC MISCELLANE PRN (21:11)
[2019-08-12] MEDS ORDERED: PIPERACILLIN-TAZOBACTAM 3.375 GM in SODIUM CHLORIDE 0.9% 100 ML IVPB STA (21:11)
[2019-08-12] MEDS ORDERED: VANCOMYCIN 1,000 MG in SODIUM CHLORIDE 0.9% 250 ML IVPB STA (21:13)
--- NOTE | 2019-08-12 21:41 | US ---
EXAMINATION TYPE: US venous doppler duplex LE LT DATE OF EXAM: 08/12/2019 9:35 PM COMPARISON: 04/21/2019 CLINICAL HISTORY: 74-year-old female pain, L knee. Left knee pain intermittently x 1.5 weeks. No hx o f DVT. Patient has had multiple left knee surgeries. SIDE PERFORMED: Left TECHNIQUE: The lower extremity deep venous system is examined utilizing real time linear array sonog ryan with graded compression, doppler sonography and color-flow sonography. FINDINGS: VESSELS IMAGED: External Iliac Vein (EIV) Common Femoral Vein Deep Femoral Vein Greater Saphenous Vein * Femoral Vein Popliteal Vein Small Saphenous Vein * Proximal Calf Veins (* superficial vessels) Left Leg: No evidence of DVT in veins imaged at this time from upper calf veins to EIV. IMPRESSION: No visualized DVT within the left lower extremity imaged from the groin to the upper calf.
[2019-08-12] MEDS ORDERED: IBUPROFEN 400 MG TAB PO PRN (22:56)
[2019-08-12] MEDS ORDERED: ACETAMINOPHEN TAB 325 MG TAB PO PRN (22:56)
[2019-08-12] MEDS ORDERED: MORPHINE SULFATE 4 MG/ML SYRINGE IV PRN (22:56)
[2019-08-12] MEDS ORDERED: KETOROLAC 30 MG/ML 1 ML VIAL IVP PRN (22:56)
[2019-08-12] MEDS ORDERED: NALOXONE 0.4 MG/ML 1 ML VIAL IV PRN (22:56)
[2019-08-12] MEDS ORDERED: diphenhydrAMINE 50 MG/ML 1 ML VIAL IVP PRN (23:42)
[2019-08-13] MEDS ORDERED: SODIUM CHLORIDE 0.9% 1,000 ML IV ONE (00:16)
[2019-08-13] MEDS: SODIUM CHLORIDE 0.9% 1,000 ML IV SCH ×5 (01:14→20:35)
[2019-08-13 01:49] LABS: Ferritin 143.1 ng/mL (10.0-291.0)
[2019-08-13] MEDS ORDERED: ONDANSETRON 4 MG TAB PO PRN (06:14)
[2019-08-13 07:11] LABS: Glucose,Whole Blood 62 mg/dL (75-99)
[2019-08-13 07:50] LABS: Glucose,Whole Blood 61 mg/dL (75-99)
[2019-08-13 08:11] LABS: Glucose,Whole Blood 60 mg/dL (75-99)
[2019-08-13 08:28] LABS: Glucose,Whole Blood 68 mg/dL (75-99)
[2019-08-13 08:37] LABS: Glucose,Whole Blood 82 mg/dL (75-99)
[2019-08-13] MEDS: HEPARIN SODIUM,PORCINE 5,000 UNIT/ML 1 ML VIAL SQ SCH ×2 (08:57→20:35)
[2019-08-13] MEDS: CARVEDILOL 12.5 MG TAB PO SCH ×2 (08:58→17:44)
[2019-08-13] MEDS: LOSARTAN 50 MG TAB PO SCH (08:58)
[2019-08-13] MEDS: PANTOPRAZOLE 40 MG/10 ML VIAL IV SCH (08:58)
[2019-08-13] MEDS: CEFEPIME 2 GM in SODIUM CHLORIDE 0.9% 100 ML IVPB SCH ×2 (08:58→20:35)
[2019-08-13] MEDS: INSULIN ASPART (NovoLOG) 100 UNIT/ML VIAL SQ SCH ×3 (08:58→17:10)
[2019-08-13] MEDS: FENOFIBRATE 54 MG TAB PO SCH (08:58)
[2019-08-13] MEDS: CHOLECALCIFEROL 1,000 UNIT TAB PO SCH (08:58)
[2019-08-13] MEDS: FAMOTIDINE 20 MG TAB PO SCH (08:58)
[2019-08-13] MEDS ORDERED: NON FORMULARY DRUG (Omega-3 Fatty Acids/Fish Oil [Fish Oil 1,000 Mg Softgel] 1 CAP) PO SCH (09:00)
[2019-08-13] MEDS ORDERED: NON FORMULARY DRUG (Ubidecarenone [Co Q-10] 200 MG) PO SCH (09:00)
[2019-08-13] MEDS ORDERED: RED YEAST RICE 600 MG PO SCH (09:00)
--- NOTE | 2019-08-13 12:00 | P.HPIM ---
History of Present Illness H&P Date: 08/13/19 Chief Complaint: left knee pain This is a 74-year-old female patient of Dr. Frazier with past history for COPD, diabetes mellitus type 2 insulin requiring, hypertension, hyperlipidemia, generalized osteoarthritis, generalized anxiety disorder, AAA. Patient has history of osteoarthritis and under the care of Dr. Lara status post left total knee arthroplasty last July. Subsequently, she was readmitted and underwent patellar retinaculum and quadriceps tendon repair. She was readmitted in September for surgical wound ulceration eschar with flap necrosis and underwent I&D was follow-up with Dr. Martinez. Patient presented to the emergency department with chief complaint of left knee pain worsening over the last 2 days, patient arrived via EMS with temperature of 100.0 left knee with hardware visible with purulent drainage noted. Patient received a dose of Zosyn and Vanco in the emergency room and is now on Cefepime IV. We will continue IV hydration. Consults for Dr. Amaya and Dr. Lara are in place. Blood urine and wound cultures have been done. Patient does have history of Pseudomonas and left knee in October. Patient will be admitted to the hospital. Review of Systems Constitutional: Denies anorexia, Denies chills, Denies fatigue, Denies fever, Ears, nose, mouth and throat: Denies dysphagia, Denies nasal congestion, Denies nasal discharge, Denies vertigo Cardiovascular: Denies chest pain, Denies decreased exercise tolerance, Denies dyspnea on exertion, Denies edema, Denies leg edema, Denies lightheadedness, Denies syncope Respiratory: Reports home oxygen, Denies cough, Denies cough with sputum, Denies dyspnea, Denies excessive sputum, Denies hemoptysis, Denies respiratory infections, Denies snoring Gastrointestinal: Denies abdominal pain, loss of appetite, nausea and vomiting Genitourinary: Denies dysuria, Denies urgency, Denies urinary frequency Musculoskeletal: Reports gait dysfunction, Denies frequent falls, Denies muscle weakness, Denies myalgias Musculoskeletal: left: knee pain, knee stiffness, knee swelling and drainage Integumentary: Reports wound left knee, Denies pruritus, Denies rash Neurological: Reports gait dysfunction, Denies aphasia, Denies change in mentation, Denies change in speech, Denies seizures, Denies syncope Psychiatric: Denies anxiety, Denies depression Endocrine: Denies fatigue, Denies weight change, reports abnormal blood sugar Physical exam: Gen: This is a 74-year-old female. Patient is resting bed appears to be comfortable. HEENT: Head is atraumatic, normocephalic. Pupils equal, round. Sclerae is anicteric. NECK: Supple. No JVD. No lymphadenopathy. No thyromegaly. LUNGS: Clear to auscultation. No wheezes or rhonchi. No intercostal retract ions. HEART: Regular rate and rhythm. Grade 2 systolic murmur ABDOMEN: Soft. Bowel sounds are present. No masses. No tenderness. EXTREMITIES: No pedal edema. No calf tenderness. Left knee dressing intact with noted purulent drainage and hardware visible NEUROLOGICAL: Patient is awake, alert and oriented x3. Cranial nerves 2 through 12 are grossly intact poor historian. Past Medical History Past Medical History: COPD, Diabetes Mellitus, Hyperlipidemia, Hypertension, Pneumonia Additional Past Medical History / Comment(s): currently being treated for UTI History of Any Multi-Drug Resistant Organisms: None Reported Past Surgical History: Bowel Resection, Hysterectomy, Joint Replacement, Orthopedic Surgery Additional Past Surgical History / Comment(s): colon resection with ileostomy/later reversal, surgery for fx left femur, left knee replacement 07/2018, Past Anesthesia/Blood Transfusion Reactions: No Reported Reaction Past Psychological History: No Psychological Hx Reported Additional Psychological History / Comment(s): . Retired. No recent international travel. No animals in the home. Family in the past owned the [employer] Smoking Status: Current some day smoker Past Alcohol Use History: None Reported Additional Past Alcohol Use History / Comment(s): 2 PPD for 56 years, No illicit drug use or alcohol use. Patient has home oxygen that she uses at nighttime only. Patient is a smoker of about 5 per day Past Drug Use History: None Reported - Past Family History Mother Additional Family Medical History / Comment(s): heart problems passed around 82 Father Family Medical History: Cancer Additional Family Medical History / Comment(s): lung ca passed at 84 Sister(s) Family Medical History: Cancer Additional Family Medical History / Comment(s): leukemia Daughter(s) Additional Family Medical History / Comment(s): Two adult daughters with no major medical problems Medications and Allergies Home Medications Medication Instructions Recorded Confirmed Type Aspirin EC [Ecotrin Low Dose] 81 mg PO HS 10/21/18 08/13/19 History Levothyroxine Sodium 25 mcg PO DAILY 08/13/19 08/13/19 History Sertraline [Zoloft] 100 mg PO DAILY 08/13/19 08/13/19 History Vit C/E/Zn/Coppr/Lutein/Zeaxan 1 cap PO BID 08/13/19 08/13/19 History [Preservision Areds 2 Softgel] glipiZIDE XL [Glucotrol Xl] 5 mg PO DAILY 08/13/19 08/13/19 History traZODone HCL 150 mg PO HS 08/13/19 08/13/19 History Allergies Allergy/AdvReac Type Severity Reaction Status Date / Time vancomycin Allergy Itching Verified 08/13/19 08:27 Physical Exam Vitals: Vital Signs Temp Pulse Pulse Pulse Resp BP BP 08/13/19 05:44 98.1 F 75 20 109/56 08/13/19 05:42 98.1 F 75 20 109/56 08/13/19 00:35 98.1 F 79 18 118/59 08/12/19 23:54 82 18 111/91 08/12/19 22:20 81 18 101/76 08/12/19 21:02 98.5 F 79 16 116/59 08/12/19 19:46 85 18 155/82 08/12/19 18:08 100.0 F H 86 18 146/81 Pulse Ox 08/13/19 05:44 93 L 08/13/19 05:42 93 L 08/13/19 00:35 98 08/12/19 23:54 95 08/12/19 22:20 96 08/12/19 21:02 94 L 08/12/19 19:46 96 08/12/19 18:08 96 Intake and Output 08/12/19 08/13/19 08/13/19 22:59 06:59 14:59 Intake Total 600 Balance 600 Intake: Intake, IV Titration 600 Amount Sodium Chloride 0.9% 1, 600 000 ml @ 100 mls/hr IV . Q10H [facility] Rx#:[id number] Other: Voiding Method Bedside Commode Bedside Commode Weight 58.967 kg 58.967 kg Results CBC & Chem 7: 08/12/19 19:40 08/12/19 19:40 Labs: Abnormal Lab Results - Last 24 Hours (Table) 08/12/19 08/12/19 08/12/19 Range/Units 19:40 19:40 19:40 RBC 3.46 L (3.80-5.40) m/uL Hgb 10.4 L (11.4-16.0) gm/dL Hct 32.5 L (34.0-46.0) % Neutrophils # 9.5 H (1.3-7.7) k/uL Lymphocytes # 0.6 L (1.0-4.8) k/uL ESR 116 H (0-20) mm/hr Sodium 134 L (137-145) mmol/L BUN 48 H (7-17) mg/dL Creatinine 2.38 H (0.52-1.04) mg/dL Glucose 185 H (74-99) mg/dL POC Glucose (mg/dL) (75-99) mg/dL Magnesium 2.5 H (1.6-2.3) mg/dL AST 81 H (14-36) U/L ALT 83 H (4-34) U/L Alkaline Phosphatase 297 H (38-126) U/L Lactate Dehydrogenase 646 H (313-618) U/L C-Reactive Protein 230.3 H (<10.0) mg/L Procalcitonin (0.02-0.09) ng/mL Urine Appearance Cloudy H (Clear) Urine Protein 2+ H (Negative) Urine Glucose (UA) 1+ H (Negative) Urine Nitrite Positive H (Negative) Ur Leukocyte Esterase Trace H (Negative) Urine WBC 7 H (0-5) /hpf Urine Bacteria Moderate H (None) /hpf Urine Mucus Rare H (None) /hpf 08/12/19 08/13/19 08/13/19 Range/Units 19:40 07:10 07:39 RBC (3.80-5.40) m/uL Hgb (11.4-16.0) gm/dL Hct (34.0-46.0) % Neutrophils # (1.3-7.7) k/uL Lymphocytes # (1.0-4.8) k/uL ESR (0-20) mm/hr Sodium (137-145) mmol/L BUN (7-17) mg/dL Creatinine (0.52-1.04) mg/dL Glucose (74-99) mg/dL POC Glucose (mg/dL) 62 L 61 L (75-99) mg/dL Magnesium (1.6-2.3) mg/dL AST (14-36) U/L ALT (4-34) U/L Alkaline Phosphatase (38-126) U/L Lactate Dehydrogenase (313-618) U/L C-Reactive Protein (<10.0) mg/L Procalcitonin 0.20 H (0.02-0.09) ng/mL Urine Appearance (Clear) Urine Protein (Negative) Urine Glucose (UA) (Negative) Urine Nitrite (Negative) Ur Leukocyte Esterase (Negative) Urine WBC (0-5) /hpf Urine Bacteria (None) /hpf Urine Mucus (None) /hpf 08/13/19 08/13/19 Range/Units 07:59 08:17 RBC (3.80-5.40) m/uL Hgb (11.4-16.0) gm/dL Hct (34.0-46.0) % Neutrophils # (1.3-7.7) k/uL Lymphocytes # (1.0-4.8) k/uL ESR (0-20) mm/hr Sodium (137-145) mmol/L BUN (7-17) mg/dL Creatinine (0.52-1.04) mg/dL Glucose (74-99) mg/dL POC Glucose (mg/dL) 60 L 68 L (75-99) mg/dL Magnesium (1.6-2.3) mg/dL AST (14-36) U/L ALT (4-34) U/L Alkaline Phosphatase (38-126) U/L Lactate Dehydrogenase (313-618) U/L C-Reactive Protein (<10.0) mg/L Procalcitonin (0.02-0.09) ng/mL Urine Appearance (Clear) Urine Protein (Negative) Urine Glucose (UA) (Negative) Urine Nitrite (Negative) Ur Leukocyte Esterase (Negative) Urine WBC (0-5) /hpf Urine Bacteria (None) /hpf Urine Mucus (None) /hpf Microbiology - Last 24 Hours (Table) 08/12/19 22:00 Gram Stain - Preliminary Knee - Left Wound Culture - Preliminary Thrombosis Risk Factor Assmnt - DVT/VTE Prophylaxis DVT/VTE Prophylaxis: Pharmacologic Prophylaxis ordered - Choose All That Apply Any of the Below Risk Factors Present?: Yes Each Factor Represents 1 point: Abnormal pulmonary function (COPD) Other Risk Factors: Yes Each Risk Factor Represents 2 Points: Age 61-74 years Other congenital or acquired thrombophilia - If yes, enter type in comment: No Thrombosis Risk Factor Assessment Total Risk Factor Score: 3 Thrombosis Risk Factor Assessment Level: Moderate Risk Assessment and Plan Plan: 1. Septic left knee arthroplasty. Blood urine and wound Cultures have been obtained ID and Ortho are on the case. Currently on cefepime IV due to previous cultures with Pseudomonas in October. We will await cultures along with Dr. Amaya and Dr. Lara's recommendations. 2. Diabetes mellitus type 2, insulin requiring. Levemir 11 units at at bedtime. Patient has had episodes of hypoglycemia on previous admissions. Continue NovoLog scale and 5 units with meals.. 6. Hypertension. Continue Coreg 25 mg twice daily, losartan 50 mg daily. 7. Hyperlipidemia. Continue atorvastatin. 8. Generalized anxiety disorder. Continue Xanax or 0.25 mg every 8 hours as needed. 9. History of bowel resection, stable. 10. Tobacco use and dependence. Patient continues to smoke approximately 5 cigarettes per day. 11. DVT prophylaxis. Heparin subcut 12. GI prophylaxis. Protonix 13. Acute pain. Toradol and morphine ordered as needed. Patient will be admitted to the hospital for minimum of 2 night stay. Discharge plan: Possibly Home with [facility]. We will add PT and OT for evaluation of subacute rehab need. Impression and plan of care have been directed as dictated by the signing physician. Mirian Sheldon nurse practitioner acting as scribe for signing physician.
[2019-08-13 12:12] LABS: Glucose,Whole Blood 55 mg/dL (75-99)
[2019-08-13 12:29] LABS: Glucose,Whole Blood 56 mg/dL (75-99)
[2019-08-13 12:47] LABS: Glucose,Whole Blood 67 mg/dL (75-99)
[2019-08-13 13:07] LABS: Glucose,Whole Blood 51 mg/dL (75-99)
[2019-08-13 13:26] LABS: Glucose,Whole Blood 105 mg/dL (75-99)
--- NOTE | 2019-08-13 15:28 | P.CNOR ---
History of Present Illness - [facility] Consult date: 08/13/19 Requesting physician: Tesfaye Vogel Consult reason: joint pain (Left knee pain), other (Left knee infection) History of present illness: Patient is a very pleasant 74-year-old female who is seen and examined bedside for further evaluation in regards to her left knee. 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 Patient does have a extensive history in regards to her left knee. Patient states approximately 2 days ago she began to experience increased pain at the left knee. She denies any injuries. She is unable to flex the left knee, which is chronic following her most recent surgical intervention. Since her admission she has been started on Cefepime. It appears the patient had received 1 dose of vancomycin and 1 dose of Zosyn. Patient states since her admission she's had 95% improvement of her left knee pain. Patient is known to have undergone a left total knee arthroplasty on 08/05/[address] Gaspar at [facility]. Post operatively she was readmitted and underwent further surgical intervention for a patellar retin aculum and quadriceps tendon repair performed on 09/09/2017. She was seen and examined by orthopedics on 09/25/2018 and underwent incision and drainage of the left knee performed by Dr. Vincenzo Lara on 09/26/2018. During surgical intervention she was found have significant soft tissue loss which may have required further skin grafting or even muscle flap. Patient was seen by Dr. Harrison vascular surgery. Patient was transferred for further surgical intervention. Patient subsequently underwent further significant surgery at her left knee in which previous total knee arthroplasty hardware was removed and a femoral tibial david and apparent antibiotic interbody spacer was placed. Patient states she's had significant difficulty with wound healing since that surgery in the summer. She continues to have an open wound over the left anterior knee which would be superior to the patella. She states she has continued to work with wound care. She feels overall her wound has had significant improvement following surgical intervention in the summer. Previous dictation states the patient's family would like to exhaust conservative treatment options and would like to continue with IV antibiotics while avoiding any surgical intervention. Patient states at the bedside she elected to continue with conservative nonoperative treatments as well. Patient does have a significant medical history which includes smoker, COPD, diabetes mellitus, hyperlipidemia, hypertension, and is currently being treated for urinary tract infection. Gram stain and wound culture of the left knee wound showed evidence of gram-positive cocci, gram-negative bacilli, and gram negative bacilli. Patient was found to have an elevated CRP. Past Medical History Past Medical History: COPD, Diabetes Mellitus, Hyperlipidemia, Hypertension, Pne umonia Additional Past Medical History / Comment(s): currently being treated for UTI History of Any Multi-Drug Resistant Organisms: None Reported Past Surgical History: Bowel Resection, Hysterectomy, Joint Replacement, Orthop edic Surgery Additional Past Surgical History / Comment(s): colon resection with ileostomy/later reversal, surgery for fx left femur, left knee replacement 07/2018, Past Anesthesia/Blood Transfusion Reactions: No Reported Reaction Past Psychological History: No Psychological Hx Reported Additional Psychological History / Comment(s): . Retired. No recent international travel. No animals in the home. Family in the past owned the [employer] Smoking Status: Current some day smoker Past Alcohol Use History: None Reported Additional Past Alcohol Use History / Comment(s): 2 PPD for 56 years, No illicit drug use or alcohol use. Patient has home oxygen that she uses at nighttime only. Patient is a smoker of about 5 per day Past Drug Use History: None Reported - Past Family History Mother Additional Family Medical History / Comment(s): heart problems passed around 82 Father Family Medical History: Cancer Additional Family Medical History / Comment(s): lung ca passed at 84 Sister(s) Family Medical History: Cancer Additional Family Medical History / Comment(s): leukemia Daughter(s) Additional Family Medical History / Comment(s): Two adult daughters with no major medical problems Medications and Allergies Home Medications Medication Instructions Recorded Confirmed Type Aspirin EC [Ecotrin Low Dose] 81 mg PO HS 10/21/18 08/13/19 History Levothyroxine Sodium 25 mcg PO DAILY 08/13/19 08/13/19 History Sertraline [Zoloft] 100 mg PO DAILY 08/13/19 08/13/19 History Vit C/E/Zn/Coppr/Lutein/Zeaxan 1 cap PO BID 08/13/19 08/13/19 History [Preservision Areds 2 Softgel] glipiZIDE XL [Glucotrol Xl] 5 mg PO DAILY 08/13/19 08/13/19 History traZODone HCL 150 mg PO HS 08/13/19 08/13/19 History Allergies Allergy/AdvReac Type Severity Reaction Status Date / Time vancomycin Allergy Itching Verified 08/13/19 08:27 Physical Examination Physical Exam: Patient is awake, alert, and oriented 3 Vital signs stable Good chest excursion with deep inspiration and expiration Evidence of a long healing incision over the left anterior knee extending from the distal femur to the proximal tibia Evidence of a small open wound about the size of a nickel with some purulent discharge at the anterior knee just superior to the patella area Evidence of a closed well scabbed healing wound over the distal portion of the incision No evidence of significant erythema over the left lower extremity No significant pain with palpation around the left knee, distal left thigh, or proximal left tibia Patient is able to perform adequate dorsiflexion and plantarflexion of left lower extremity Neurovascular intact left lower extremity Patient is unable to perform active range of motion of the left knee No signs or symptoms of DVT; no calf pain Results Pertinent studies: X-rays of the left knee taken on 08/12/2019: Evidence of revision of previously noted left total knee arthroplasty with intra-articular bone cement and femoral tibial intramedullary rodding noted; no evidence of bone destruction at this time to suggest infection Gram stain and wound culture of the left knee: Evidence of gram-positive cocci, gram-negative bacilli, and gram negative bacilli. - Labs Labs: Abnormal Lab Results - Last 24 Hours (Table) 08/12/19 08/12/19 08/12/19 Range/Units 19:40 19:40 19:40 RBC 3.46 L (3.80-5.40) m/uL Hgb 10.4 L (11.4-16.0) gm/dL Hct 32.5 L (34.0-46.0) % Neutrophils # 9.5 H (1.3-7.7) k/uL Lymphocytes # 0.6 L (1.0-4.8) k/uL ESR 116 H (0-20) mm/hr Sodium 134 L (137-145) mmol/L BUN 48 H (7-17) mg/dL Creatinine 2.38 H (0.52-1.04) mg/dL Glucose 185 H (74-99) mg/dL POC Glucose (mg/dL) (75-99) mg/dL Magnesium 2.5 H (1.6-2.3) mg/dL AST 81 H (14-36) U/L ALT 83 H (4-34) U/L Alkaline Phosphatase 297 H (38-126) U/L Lactate Dehydrogenase 646 H (313-618) U/L C-Reactive Protein 230.3 H (<10.0) mg/L Procalcitonin (0.02-0.09) ng/mL Urine Appearance Cloudy H (Clear) Urine Protein 2+ H (Negative) Urine Glucose (UA) 1+ H (Negative) Urine Nitrite Positive H (Negative) Ur Leukocyte Esterase Trace H (Negative) Urine WBC 7 H (0-5) /hpf Urine Bacteria Moderate H (None) /hpf Urine Mucus Rare H (None) /hpf 08/12/19 08/13/19 08/13/19 Range/Units 19:40 07:10 07:39 RBC (3.80-5.40) m/uL Hgb (11.4-16.0) gm/dL Hct (34.0-46.0) % Neutrophils # (1.3-7.7) k/uL Lymphocytes # (1.0-4.8) k/uL ESR (0-20) mm/hr Sodium (137-145) mmol/L BUN (7-17) mg/dL Creatinine (0.52-1.04) mg/dL Glucose (74-99) mg/dL POC Glucose (mg/dL) 62 L 61 L (75-99) mg/dL Magnesium (1.6-2.3) mg/dL AST (14-36) U/L ALT (4-34) U/L Alkaline Phosphatase (38-126) U/L Lactate Dehydrogenase (313-618) U/L C-Reactive Protein (<10.0) mg/L Procalcitonin 0.20 H (0.02-0.09) ng/mL Urine Appearance (Clear) Urine Protein (Negative) Urine Glucose (UA) (Negative) Urine Nitrite (Negative) Ur Leukocyte Esterase (Negative) Urine WBC (0-5) /hpf Urine Bacteria (None) /hpf Urine Mucus (None) /hpf 08/13/19 08/13/19 08/13/19 Range/Units 07:59 08:17 12:07 RBC (3.80-5.40) m/uL Hgb (11.4-16.0) gm/dL Hct (34.0-46.0) % Neutrophils # (1.3-7.7) k/uL Lymphocytes # (1.0-4.8) k/uL ESR (0-20) mm/hr Sodium (137-145) mmol/L BUN (7-17) mg/dL Creatinine (0.52-1.04) mg/dL Glucose (74-99) mg/dL POC Glucose (mg/dL) 60 L 68 L 55 L (75-99) mg/dL Magnesium (1.6-2.3) mg/dL AST (14-36) U/L ALT (4-34) U/L Alkaline Phosphatase (38-126) U/L Lactate Dehydrogenase (313-618) U/L C-Reactive Protein (<10.0) mg/L Procalcitonin (0.02-0.09) ng/mL Urine Appearance (Clear) Urine Protein (Negative) Urine Glucose (UA) (Negative) Urine Nitrite (Negative) Ur Leukocyte Esterase (Negative) Urine WBC (0-5) /hpf Urine Bacteria (None) /hpf Urine Mucus (None) /hpf 08/13/19 08/13/19 08/13/19 Range/Units 12:27 12:45 13:03 RBC (3.80-5.40) m/uL Hgb (11.4-16.0) gm/dL Hct (34.0-46.0) % Neutrophils # (1.3-7.7) k/uL Lymphocytes # (1.0-4.8) k/uL ESR (0-20) mm/hr Sodium (137-145) mmol/L BUN (7-17) mg/dL Creatinine (0.52-1.04) mg/dL Glucose (74-99) mg/dL POC Glucose (mg/dL) 56 L 67 L 51 L (75-99) mg/dL Magnesium (1.6-2.3) mg/dL AST (14-36) U/L ALT (4-34) U/L Alkaline Phosphatase (38-126) U/L Lactate Dehydrogenase (313-618) U/L C-Reactive Protein (<10.0) mg/L Procalcitonin (0.02-0.09) ng/mL Urine Appearance (Clear) Urine Protein (Negative) Urine Glucose (UA) (Negative) Urine Nitrite (Negative) Ur Leukocyte Esterase (Negative) Urine WBC (0-5) /hpf Urine Bacteria (None) /hpf Urine Mucus (None) /hpf 08/13/19 Range/Units 13:22 RBC (3.80-5.40) m/uL Hgb (11.4-16.0) gm/dL Hct (34.0-46.0) % Neutrophils # (1.3-7.7) k/uL Lymphocytes # (1.0-4.8) k/uL ESR (0-20) mm/hr Sodium (137-145) mmol/L BUN (7-17) mg/dL Creatinine (0.52-1.04) mg/dL Glucose (74-99) mg/dL POC Glucose (mg/dL) 105 H (75-99) mg/dL Magnesium (1.6-2.3) mg/dL AST (14-36) U/L ALT (4-34) U/L Alkaline Phosphatase (38-126) U/L Lactate Dehydrogenase (313-618) U/L C-Reactive Protein (<10.0) mg/L Procalcitonin (0.02-0.09) ng/mL Urine Appearance (Clear) Urine Protein (Negative) Urine Glucose (UA) (Negative) Urine Nitrite (Negative) Ur Leukocyte Esterase (Negative) Urine WBC (0-5) /hpf Urine Bacteria (None) /hpf Urine Mucus (None) /hpf Microbiology - Last 24 Hours (Table) 08/12/19 19:40 Urine Culture - Preliminary Urine,Clean Catch 08/12/19 22:00 Gram Stain - Preliminary Knee - Left Wound Culture - Preliminary H & H 08/12/19 Range/Units 19:40 Hgb 10.4 L (11.4-16.0) gm/dL Hct 32.5 L (34.0-46.0) % Coagulation 08/12/19 Range/Units 19:40 INR 0.9 (<1.2) Result Diagrams: 08/12/19 19:40 08/12/19 19:40 Assessment and Plan Assessment: Assessment: Left knee pain Slow healing left anterior knee wound at previous surgical site Left knee infection with wound culture and gram stain positive for gram-positive cocci, gram-negative bacilli, and gram negative bacilli without focal bone destruction Left knee fusion History of left knee total arthroplasty performed on 08/05/2017 History of left patellar retinaculum and quadriceps tendon repair performed on 09/09/2017 History of left knee irrigation and debridement performed on 09/26/2018 History of removal of hardware at the left knee with placement of femoral tibial intramedullary rodding and antibiotic spacer with cement Elevated CRP Current smoker COPD Diabetes mellitus Hyperlipidemia Hypertension Urinary tract infection (1) Left knee pain Current Visit: Yes Status: Acute Code(s): M25.562 - PAIN IN LEFT KNEE SNOMED Code(s): 95981481 (2) History of total left knee replacement Current Visit: Yes Status: Acute Code(s): Z96.652 - PRESENCE OF LEFT ARTIFICIAL KNEE JOINT SNOMED Code(s): 7236752313361 (3) Open wound of knee Current Visit: Yes Status: Acute Code(s): S81.009A - UNSPECIFIED OPEN WOUND, UNSPECIFIED KNEE, INITIAL ENCOUNTER SNOMED Code(s): 077492114 (4) Smoker Current Visit: Yes Status: Acute Code(s): F17.200 - NICOTINE DEPENDENCE, UNSPECIFIED, UNCOMPLICATED SNOMED Code(s): 76923072 (5) Elevated C-reactive protein (CRP) Current Visit: Yes Status: Acute Code(s): R79.82 - ELEVATED C-REACTIVE PROTEIN (CRP) SNOMED Code(s): 441751417662894 (6) Infection of left knee Current Visit: Yes Status: Acute Code(s): M00.9 - PYOGENIC ARTHRITIS, UNSPECIFIED SNOMED Code(s): 516295130 (7) UTI (urinary tract infection) Current Visit: Yes Status: Acute Code(s): N39.0 - URINARY TRACT INFECTION, SITE NOT SPECIFIED SNOMED Code(s): 83078787 (8) COPD (chronic obstructive pulmonary disease) Current Visit: No Status: Acute Code(s): J44.9 - CHRONIC OBSTRUCTIVE PULMO NARY DISEASE, UNSPECIFIED SNOMED Code(s): 26555817 (9) Diabetes mellitus Current Visit: No Status: Acute Code(s): E11.9 - TYPE 2 DIABETES MELLITUS WITHOUT COMPLICATIONS SNOMED Code(s): 82769904 (10) Hyperlipidemia Current Visit: No Status: Acute Code(s): E78.5 - HYPERLIPIDEMIA, UNSPECIFIED SNOMED Code(s): 80769837 (11) Hypertension Current Visit: No Status: Acute Code(s): I10 - ESSENTIAL (PRIMARY) HYPERTENSION SNOMED Code(s): 53063821 (12) S/P tendon repair Current Visit: No Status: Acute Code(s): Z98.890 - OTHER SPECIFIED POSTPROCEDURAL STATES SNOMED Code(s): 189073649 Plan: Plan: 1. Patient has been discussed in detail with Dr. Vincenzo Lara. Imaging has been reviewed by myself and Dr. Vincenzo Lara. Patient does have a significant medical history with multiple surgical interventions performed at her left knee. Her most recent surgical intervention appears to have been removal of previous left total knee hardware with placement of femoral tibial intramedullary rodding with antibiotic spacer and cemented. Patient is unable to perform any active range of motion of the left knee. Her left knee is fused. At the time of her presentation to the hospital, she was experiencing increased left knee pain over the past 2 days without known injury. Since her admittance, she has been started on IV antibiotics. She feels her left knee pain has improved by 95%. She does continue to have an open wound over the anterior superior portion of the left knee. She states this wound has continued to remain open since her last surgery performed approximately in the summer of 2018. She states she has continued to work with wound care long-term in regards to treatment for her incision has had significant improvement with healing. She states her current open wound is small conservative to the size of the wound previously. At this time, we recommend exhausting all conservative treatment options. Documentation states the patient's daughter would like to continue with comfort care and conservative treatment. Daughter is not at the bedside at the time of examination. Patient states she would like to continue conservative treatment as well. Based on evidence of her left knee fusion with antibiotic spacer, there are not any indications for surgical irrigation and debridement of the left knee. We discussed we'll plan to consult with wound care for wound management of her left knee. We did discuss if she would need further surgical intervention including skin grafting or flap, the patient will need transfer for further evaluation with plastic surgery. If she needed further evaluation, the consultation with vascular surgery may also be necessary. At this time, patient will be cleared for discharge from an orthopedic standpoint once cleared by other medical providers. We will plan to have her follow-up in the outpatient setting on as-needed basis. She may weight-bear to tolerance on the left lower extremity. 2. Patient will continue to be seen in exam by other medical providers in cluding medicine and infectious disease. 3. Continue with antibiotics as set forth and controlled by infectious disease and medicine. Time with Patient: Greater than 30 (Including obtaining history, physical examination, reviewing of imaging, and dictation.)
[2019-08-13 17:08] LABS: Glucose,Whole Blood 186 mg/dL (75-99)
[2019-08-13 20:05] LABS: Glucose,Whole Blood 188 mg/dL (75-99)
[2019-08-13] MEDS: ASPIRIN 81 MG PO SCH (20:36)
[2019-08-13] MEDS: ATORVASTATIN 40 MG TAB PO SCH (20:36)
[2019-08-13] MEDS: ALPRAZolam 0.25 MG TAB PO PRN (20:43)
[2019-08-13] MEDS ORDERED: INSULIN DETEMIR (LEVEMIR) 100 UNIT/ML SYR SQ SCH (21:00)
--- NOTE | 2019-08-13 23:25 | CONS ---
CONSULTATION DATE OF SERVICE: 08/13/2019 REASON FOR CONSULTATION: Left knee infection. HISTORY OF PRESENT ILLNESS: The patient is a 74-year-old female with a past medical history significant for left total knee arthroplasty in July of 2017. Subsequently the patient was readmitted to hospital, as she was noted to have quadriceps tendon rupture, status post repair in August of 2017. Apparently the patient continued to have a problem with her left required resection of necrotic and skin grafting. Subsequently the patient did have further surgery in this patient who did have left knee arthroplasty, hardware that was removed a femoral tibial david and apparent antibiotic interbody spacer was placed. That was in October of 2018. The patient apparently did have a chronic nonhealing wound to the left knee area since then and has been taken care of by the wound care nurses. Apparently over the last few days the left knee was becoming more swollen and painful. The patient describes the pain to be throbbing, sharp, almost 10/10 in severity, and the patient has not been able to move her knee. This patient denies any history of any trauma. There has been some purulent drainage from her left knee wound. With these symptoms, the patient was sent to [facility] ER for further evaluation. On arrival in the ER the patient did have a low-grade fever of 100 degrees Fahrenheit. The patient had x-rays of the left knee which show revision of previously noted total left knee arthroplasty with bone cement and femoral intramedullary david with no evidence of any bony destruction. The patient did have local wound cultures obtained which are currently showing multiple pathogens. She did receive a dose of vancomycin and Zosyn in the ER. Currently the patient has been started on cefepime. Infectious Disease was consulted this morning for further recommendations regarding antibiotic therapy. The patient overall is mentioning improvement in the pain since the patient has been admitted to the hospital. The patient denies having any chest pain or shortness of breath or cough. No nausea, no vomiting. No abdominal pain. No diarrhea. REVIEW OF SYSTEMS: Positive points have been mentioned in HPI. Rest of the systems are negative. PAST MEDICAL HISTORY: COPD, diabetes mellitus, hypertension, hyperlipidemia, urinary tract infection, pneumonia and left knee septic arthritis. PAST SURGICAL HISTORY: Bowel resection, hysterectomy, left knee replacement and subsequently the patient did have left knee arthroplasty, antibiotic spacer placement and femoral david. SOCIAL HISTORY: The patient is . History of smoking, currently tobacco. Denies any drinking or drug use. FAMILY HISTORY: Mother with history of heart disease. Father with history of lung cancer. ALLERGIES: VANCOMYCIN. MEDICATIONS: The patient is currently on Protonix, Zofran, Narcan, morphine sulfate, Cozaar, Toradol, Levemir, NovoLog, Motrin, fenofibrate, Benadryl, cefepime 2 grams q.12, Lipitor, aspirin, Xanax and Tylenol. PHYSICAL EXAMINATION: Blood pressure is 102/50 with a pulse of 74, temperature 98.4. She is 98% on room air. General description is an elderly female lying in bed in no distress. No tachypnea or accessory muscle of respiration use. HEENT examination shows pallor. No scleral icterus. Oral mucosa membrane is dry. No pharyngeal erythema or thrush. NECK: Trachea is central. No thyromegaly. LUNGS: Unlabored breathing. Decreased breath sounds at the bases. No wheeze. HEART: S1, S2. Regular rate and rhythm. ABDOMEN: Soft. No tenderness. No guarding or rigidity. EXTREMITIES: No edema of the feet. Examination of left knee: Did have a wound with slough tissue. There is no significant redness or any foul-smelling drainage. Neurologically the patient is awake, alert, oriented x3. Mood and affect normal. LABS: Hemoglobin is 10.4, white count 10.6, BUN of 48, creatinine is 2.38. Procalcitonin 0.20. CRP is 230. Sedimentation rate is 116. Wound culture showing group G Strep. DIAGNOSTIC IMPRESSION AND PLAN: 1. Patient with chronic nonhealing wound to the left knee area in this patient who did have a history of septic arthritis, status post left knee arthroplasty, antibiotic spacer and femoral david with a chronic nonhealing wound with secondary infection. Culture now showing group G Strep with the hardware exposed, likely representing deep infection. 2. Patient with high risk of nephrotoxicity from some antibiotics. 3. ANTIBIOTIC ALLERGIES. PLAN: 1. Patient is currently on cefepime 2 grams q.12. That should be adjusted kidney function. Will be continued while waiting for the culture to finalize. 2. Patient may benefit from debridement of the wound and possible extraction of any infected hardware to completely clear this infection. 3. Local wound care to continue, currently with dry protective dressing. 4. Will follow clinical condition and culture to further adjust medication if needed. Thank you for this consultation. Will follow this patient along with you. MMODL / IJN: [id number] /
[2019-08-14] MEDS: SODIUM CHLORIDE 0.9% 1,000 ML IV SCH ×3 (04:50→20:11)
[2019-08-14 07:14] LABS: Glucose,Whole Blood 51 mg/dL (75-99)
[2019-08-14] MEDS ORDERED: GLUCAGON 1 MG/ML VIAL ONE (07:14)
[2019-08-14 07:26] LABS: Glucose,Whole Blood 57 mg/dL (75-99)
[2019-08-14 07:43] LABS: Glucose,Whole Blood 74 mg/dL (75-99)
[2019-08-14 07:49] LABS: Glucose,Whole Blood 96 mg/dL (75-99)
[2019-08-14] MEDS: INSULIN ASPART (NovoLOG) 100 UNIT/ML VIAL SQ SCH (08:18)
[2019-08-14] MEDS ORDERED: DIAZEPAM 5 MG/ML 2 ML INJ IVP STA (08:25)
[2019-08-14 08:30] LABS: Glucose,Whole Blood 115 mg/dL (75-99)
[2019-08-14 08:36] LABS: Basophils % (A) 0 %; Eosinophils % (A) 0 %; HCT 31.3 % (34.0-46.0); HGB 9.3 gm/dL (11.4-16.0); Hypochromasia Marked; Lymphocytes # (A) 0.4 k/uL (1.0-4.8); Lymphocytes % (A) 5 %; MCH 30.2 pg (25.0-35.0); MCHC 29.8 g/dL (31.0-37.0); Macrocytosis Slight; Monocytes # (A) 0.3 k/uL (0-1.0); Monocytes % (A) 4 %; Neutrophils # (A) 7.2 k/uL (1.3-7.7); Neutrophils % (A) 89 %; Platelet Count 211 k/uL (150-450); RBC 3.08 m/uL (3.80-5.40); WBC 8.1 k/uL (3.8-10.6)
[2019-08-14 08:37] LABS: Calcium 9.1 mg/dL (8.4-10.2); Magnesium 2.5 mg/dL (1.6-2.3); Potassium 5.4 mmol/L (3.5-5.1)
[2019-08-14 08:39] LABS: MCV 101.6 fL (80.0-100.0)
[2019-08-14] MEDS ORDERED: NON FORMULARY DRUG (Vit C/E/Zn/Coppr/Lutein/Zeaxan [Preservision Areds 2 Softgel] 1 CAP) PO SCH (09:00)
--- NOTE | 2019-08-14 10:36 | P.PN ---
Subjective Progress Note Date: 08/14/19 Principal diagnosis: Left knee wound Patient is a pleasant 74-year-old female who is seen at bedside this am in regards to her left knee. She has a chronic wound at the left knee where she was admitted for antibiotics and further evaluation and treatment due to recent increase in pain. She has no new complaints today. She denies fever, chills, chest pain, shortness of breath, numbness, tingling or other. Prior HX: Patient does have an extensive history in regards to her left knee. . Patient is known to have undergone a left total knee arthroplasty on 08/05/[address] Gaspar at [facility]. Post operatively she was readmitted and underwent further surgical intervention for a patellar retinaculum and quadriceps tendon repair performed on 09/09/2017. She was seen and examined by orthopedics on 09/25/2018 and underwent incision and drainage of the left knee performed by Dr. Vincenzo Lara on 09/26/2018. During surgical intervention she was found have significant soft tissue loss which may have required further skin grafting or even muscle flap. Patient was seen by Dr. Harrison vascular surgery. Patient was transferred for further surgical intervention. Patient subsequently underwent further significant surgery at her left knee in which previous total knee arthroplasty hardware was removed and a femoral tibial david and apparent antibiotic interbody spacer was placed. Patient states she's had significant difficulty with wound healing since that surgery in the summer. She continues to have an open wound over the left anterior knee which would be superior to the patella. She states she has continued to work with wound care. She feels overall her wound has had significant improvement following surgical intervention in the summer. Previous dictation states the patient's family would like to exhaust conservative treatment options and would like to continue with IV antibiotics while avoiding any surgical intervention. Patient states at the bedside she elected to continue with conservative nonoperative treatments as well. Patient does have a significant medical history which includes smoker, COPD, diabetes mellitus, hyperlipidemia, hypertension, and is currently being treated for urinary tract infection. Gram stain and wound culture of the left knee wound showed evidence of gram-positive cocci, gram-negative bacilli, and gram negative bacilli. Patient was found to have an elevated CRP. Objective - Vital Signs Vital signs: Vital Signs Temp 97.5 F L 08/14/19 00:56 Pulse 66 08/14/19 07:20 Resp 18 08/14/19 07:15 BP 143/63 08/14/19 08:48 Pulse Ox 93 L 08/14/19 07:15 Intake & Output 08/13/19 08/14/19 08/14/19 18:59 06:59 18:59 Intake Total 400 Balance 400 Intake: Intake, IV Titration 400 Amount Cefepime 2 gm In Sodium 100 Chloride 0.9% 100 ml @ 200 mls/hr IVPB Q12HR [facility] Rx#:[id number] Sodium Chloride 0.9% 1, 300 000 ml @ 100 mls/hr IV . Q10H [facility] Rx#:[id number] Other: Voiding Method Toilet Toilet # Voids 2 1 - Exam Inspection of left lower extremity shows no diffuse erythema or swelling. There is a chronic appearing wound about the size of a quarter at the left knee in the suprapatellar area. There is no active bleeding or drainage. Motor and sensation is grossly intact throughout the left lower extremity. The calf is soft and nontender. 2+ DP pulse and less than 2 sec cap refill is present. - Constitutional General appearance: Present: no acute distress - Labs CBC & Chem 7: 08/14/19 08:10 08/14/19 08:10 Labs: Abnormal Lab Results - Last 24 Hours (Table) 08/13/19 08/13/19 08/13/19 Range/Units 12:07 12:27 12:45 RBC (3.80-5.40) m/uL Hgb (11.4-16.0) gm/dL Hct (34.0-46.0) % MCV (80.0-100.0) fL MCHC (31.0-37.0) g/dL Lymphocytes # (1.0-4.8) k/uL Potassium (3.5-5.1) mmol/L Chloride (98-107) mmol/L Carbon Dioxide (22-30) mmol/L BUN (7-17) mg/dL Creatinine (0.52-1.04) mg/dL Glucose (74-99) mg/dL POC Glucose (mg/dL) 55 L 56 L 67 L (75-99) mg/dL Plasma Lactic Acid Harshal (0.7-2.0) mmol/L Magnesium (1.6-2.3) mg/dL 08/13/19 08/13/19 08/13/19 Range/Units 13:03 13:22 16:54 RBC (3.80-5.40) m/uL Hgb (11.4-16.0) gm/dL Hct (34.0-46.0) % MCV (80.0-100.0) fL MCHC (31.0-37.0) g/dL Lymphocytes # (1.0-4.8) k/uL Potassium (3.5-5.1) mmol/L Chloride (98-107) mmol/L Carbon Dioxide (22-30) mmol/L BUN (7-17) mg/dL Creatinine (0.52-1.04) mg/dL Glucose (74-99) mg/dL POC Glucose (mg/dL) 51 L 105 H 186 H (75-99) mg/dL Plasma Lactic Acid Harshal (0.7-2.0) mmol/L Magnesium (1.6-2.3) mg/dL 08/13/19 08/14/19 08/14/19 Range/Units 20:01 07:06 07:25 RBC (3.80-5.40) m/uL Hgb (11.4-16.0) gm/dL Hct (34.0-46.0) % MCV (80.0-100.0) fL MCHC (31.0-37.0) g/dL Lymphocytes # (1.0-4.8) k/uL Potassium (3.5-5.1) mmol/L Chloride (98-107) mmol/L Carbon Dioxide (22-30) mmol/L BUN (7-17) mg/dL Creatinine (0.52-1.04) mg/dL Glucose (74-99) mg/dL POC Glucose (mg/dL) 188 H 51 L 57 L (75-99) mg/dL Plasma Lactic Acid Harshal (0.7-2.0) mmol/L Magnesium (1.6-2.3) mg/dL 08/14/19 08/14/19 08/14/19 Range/Units 07:33 08:10 08:10 RBC 3.08 L (3.80-5.40) m/uL Hgb 9.3 L (11.4-16.0) gm/dL Hct 31.3 L (34.0-46.0) % MCV 101.6 H D (80.0-100.0) fL MCHC 29.8 L (31.0-37.0) g/dL Lymphocytes # 0.4 L (1.0-4.8) k/uL Potassium 5.4 H (3.5-5.1) mmol/L Chloride 115 H (98-107) mmol/L Carbon Dioxide 15 L (22-30) mmol/L BUN 54 H (7-17) mg/dL Creatinine 2.61 H (0.52-1.04) mg/dL Glucose 124 H (74-99) mg/dL POC Glucose (mg/dL) 74 L (75-99) mg/dL Plasma Lactic Acid Harshal (0.7-2.0) mmol/L Magnesium 2.5 H (1.6-2.3) mg/dL 08/14/19 08/14/19 Range/Units 08:10 08:10 RBC (3.80-5.40) m/uL Hgb (11.4-16.0) gm/dL Hct (34.0-46.0) % MCV (80.0-100.0) fL MCHC (31.0-37.0) g/dL Lymphocytes # (1.0-4.8) k/uL Potassium (3.5-5.1) mmol/L Chloride (98-107) mmol/L Carbon Dioxide (22-30) mmol/L BUN (7-17) mg/dL Creatinine (0.52-1.04) mg/dL Glucose (74-99) mg/dL POC Glucose (mg/dL) 115 H (75-99) mg/dL Plasma Lactic Acid Harshal 2.9 H* (0.7-2.0) mmol/L Magnesium (1.6-2.3) mg/dL Microbiology - Last 24 Hours (Table) 08/12/19 19:40 Blood Culture - Preliminary Blood No Growth after 24 hours 08/12/19 22:00 Gram Stain - Preliminary Knee - Left Wound Culture - Preliminary Beta Hemolytic Strep Group G 08/12/19 19:40 Urine Culture - Preliminary Urine,Clean Catch Assessment and Plan (1) History of total left knee replacement Narrative/Plan: There are no plans for immediate orthopedic surgical intervention. She appears stable this am with no apparent progression of the wound or infection. She has normal WBC and is afebrile. Continue IV antibiotics per ID and medical management per IM. Will continue to monitor. Current Visit: Yes Status: Acute Priority: Medium Code(s): Z96.652 - PRESENCE OF LEFT ARTIFICIAL KNEE JOINT SNOMED Code(s): 4886350908283 (2) Infection of left knee Current Visit: Yes Status: Acute Priority: Medium Code(s): M00.9 - PYOGENIC ARTHRITIS, UNSPECIFIED SNOMED Code(s): 593206978 Time with Patient: Less than 30
[2019-08-14] MEDS: CEFEPIME 2 GM in SODIUM CHLORIDE 0.9% 100 ML IVPB SCH (10:55)
[2019-08-14] MEDS: DEXTROSE 5%-0.9% NACL 1,000 ML IV SCH ×2 (10:55→21:34)
[2019-08-14] MEDS: CARVEDILOL 12.5 MG TAB PO SCH ×2 (10:57→18:14)
[2019-08-14] MEDS: CHOLECALCIFEROL 1,000 UNIT TAB PO SCH (10:58)
[2019-08-14] MEDS: LEVOTHYROXINE 25 MCG TAB PO SCH (10:58)
[2019-08-14] MEDS: ASCORBIC ACID 500 MG TAB PO SCH (10:58)
[2019-08-14] MEDS: FAMOTIDINE 20 MG TAB PO SCH (10:58)
[2019-08-14] MEDS: SERTRALINE 100 MG TAB PO SCH (10:58)
[2019-08-14] MEDS: LOSARTAN 50 MG TAB PO SCH (10:58)
[2019-08-14] MEDS: FENOFIBRATE 54 MG TAB PO SCH (10:58)
[2019-08-14] MEDS: HEPARIN SODIUM,PORCINE 5,000 UNIT/ML 1 ML VIAL SQ SCH ×2 (10:58→20:47)
[2019-08-14] MEDS: PANTOPRAZOLE 40 MG/10 ML VIAL IV SCH (11:01)
[2019-08-14 11:28] LABS: Glucose,Whole Blood 146 mg/dL (75-99)
--- NOTE | 2019-08-14 11:34 | P.PN ---
Subjective Progress Note Date: 08/14/19 H&P Date: 08/13/19 Chief Complaint: left knee pain This is a 74-year-old female patient of Dr. Frazier with past history for COPD, diabetes mellitus type 2 insulin requiring, hypertension, hyperlipidemia, generalized osteoarthritis, generalized anxiety disorder, AAA. Patient has history of osteoarthritis and under the care of Dr. Lara status post left total knee arthroplasty last July. Subsequently, she was readmitted and underwent patellar retinaculum and quadriceps tendon repair. She was readmitted in September for surgical wound ulceration eschar with flap necrosis and underwent I&D was follow-up with Dr. Martinez. Patient presented to the emergency department with chief complaint of left knee pain worsening over the last 2 days, patient arrived via EMS with temperature of 100.0 left knee with hardware visible with purulent drainage noted. Patient received a dose of Zosyn and Vanco in the emergency room and is now on Cefepime IV. We will continue IV hydration. Consults for Dr. Amaya and Dr. Lara are in place. Blood urine and wound cultures have been done. Patient does have history of Pseudomonas and left knee in October. Patient will be admitted to the hospital. 08/13: Patient found this morning with a team called, patient was restless in bed. Blood sugar was 57 and amp of dextrose was given. D5 0.9 IV fluids s tarted. Will attempt to better control pain with Dilaudid and [place] when necessary. 1 dose of Valium given. Labs were reviewed hemoglobin 9.3 BUN 54 creatinine 2.61 lactic acid 2.9, ESR 116. Vital signs are stable, patient remains afebrile blood pressure 143/63 heart rate 66 pulse ox 93% on room air. We will consult Dr. Harrison for evaluation of left knee. Patient is known to him in the past. Orthopedics plan to exhaust conservative treatment options at this time per family request, there are not any indications for surgical irrigation and debridement at this time. Wound care is currently following patient. Objective - Vital Signs Vital signs: Vital Signs Temp 97.5 F L 08/14/19 00:56 Pulse 66 08/14/19 07:20 Resp 18 08/14/19 07:15 BP 143/63 08/14/19 08:48 Pulse Ox 93 L 08/14/19 07:15 Intake & Output 08/13/19 08/14/19 08/14/19 18:59 06:59 18:59 Intake Total 400 Balance 400 Intake: Intake, IV Titration 400 Amount Cefepime 2 gm In Sodium 100 Chloride 0.9% 100 ml @ 200 mls/hr IVPB Q12HR [facility] Rx#:[id number] Sodium Chloride 0.9% 1, 300 000 ml @ 100 mls/hr IV . Q10H [facility] Rx#:[id number] Other: Voiding Method Toilet Toilet Toilet Incontinent # Voids 2 1 - Exam Constitutional: Denies anorexia, Denies chills, Denies fatigue, Denies fever, Ears, nose, mouth and throat: Denies dysphagia, Denies nasal congestion, Denies nasal discharge, Denies vertigo Cardiovascular: Denies chest pain, Denies decreased exercise tolerance, Denies dyspnea on exertion, Denies edema, Denies leg edema, Denies lightheadedness, Denies syncope Respiratory: Reports home oxygen, Denies cough, Denies cough with sputum, Denies dyspnea, Denies excessive sputum, Denies hemoptysis, Denies respiratory infections, Denies snoring Gastrointestinal: Denies abdominal pain, loss of appetite, nausea and vomiting Genitourinary: Denies dysuria, Denies urgency, Denies urinary frequency Musculoskeletal: Reports gait dysfunction, Denies frequent falls, Denies muscle weakness, Denies myalgias Musculoskeletal: left: knee pain, knee stiffness, knee swelling and drainage Integumentary: Reports wound left knee, Denies pruritus, Denies rash Neurological: Reports gait dysfunction, Denies aphasia, Denies change in mentation, Denies change in speech, Denies seizures, Denies syncope Psychiatric: Increased pain and anxiety Endocrine: Denies fatigue, Denies weight change, Low BS 57 this am Physical exam: Gen: This is a 74-year-old female. Patient was seen more anxious and restless in bed this morning. HEENT: Head is atraumatic, normocephalic. Pupils equal, round. Sclerae is anicteric. NECK: Supple. No JVD. No lymphadenopathy. No thyromegaly. LUNGS: Clear to auscultation. No wheezes or rhonchi. No intercostal retractions. HEART: Regular rate and rhythm. Grade 2 systolic murmur ABDOMEN: Soft. Bowel sounds are present. No masses. No tenderness. EXTREMITIES: No pedal edema. No calf tenderness. Left knee dressing intact with noted purulent drainage and hardware visible NEUROLOGICAL: Patient is awake, alert and oriented x3. Cranial nerves 2 through 12 are grossly intact poor historian. - Labs CBC & Chem 7: 08/14/19 08:10 08/14/19 08:10 Labs: Abnormal Lab Results - Last 24 Hours (Table) 08/13/19 08/13/19 08/13/19 Range/Units 12:07 12:27 12:45 RBC (3.80-5.40) m/uL Hgb (11.4-16.0) gm/dL Hct (34.0-46.0) % MCV (80.0-100.0) fL MCHC (31.0-37.0) g/dL Lymphocytes # (1.0-4.8) k/uL Potassium (3.5-5.1) mmol/L Chloride (98-107) mmol/L Carbon Dioxide (22-30) mmol/L BUN (7-17) mg/dL Creatinine (0.52-1.04) mg/dL Glucose (74-99) mg/dL POC Glucose (mg/dL) 55 L 56 L 67 L (75-99) mg/dL Plasma Lactic Acid Harshal (0.7-2.0) mmol/L Magnesium (1.6-2.3) mg/dL 08/13/19 08/13/19 08/13/19 Range/Units 13:03 13:22 16:54 RBC (3.80-5.40) m/uL Hgb (11.4-16.0) gm/dL Hct (34.0-46.0) % MCV (80.0-100.0) fL MCHC (31.0-37.0) g/dL Lymphocytes # (1.0-4.8) k/uL Potassium (3.5-5.1) mmol/L Chloride (98-107) mmol/L Carbon Dioxide (22-30) mmol/L BUN (7-17) mg/dL Creatinine (0.52-1.04) mg/dL Glucose (74-99) mg/dL POC Glucose (mg/dL) 51 L 105 H 186 H (75-99) mg/dL Plasma Lactic Acid Harshal (0.7-2.0) mmol/L Magnesium (1.6-2.3) mg/dL 08/13/19 08/14/19 08/14/19 Range/Units 20:01 07:06 07:25 RBC (3.80-5.40) m/uL Hgb (11.4-16.0) gm/dL Hct (34.0-46.0) % MCV (80.0-100.0) fL MCHC (31.0-37.0) g/dL Lymphocytes # (1.0-4.8) k/uL Potassium (3.5-5.1) mmol/L Chloride (98-107) mmol/L Carbon Dioxide (22-30) mmol/L BUN (7-17) mg/dL Creatinine (0.52-1.04) mg/dL Glucose (74-99) mg/dL POC Glucose (mg/dL) 188 H 51 L 57 L (75-99) mg/dL Plasma Lactic Acid Harshal (0.7-2.0) mmol/L Magnesium (1.6-2.3) mg/dL 08/14/19 08/14/19 08/14/19 Range/Units 07:33 08:10 08:10 RBC 3.08 L (3.80-5.40) m/uL Hgb 9.3 L (11.4-16.0) gm/dL Hct 31.3 L (34.0-46.0) % MCV 101.6 H D (80.0-100.0) fL MCHC 29.8 L (31.0-37.0) g/dL Lymphocytes # 0.4 L (1.0-4.8) k/uL Potassium 5.4 H (3.5-5.1) mmol/L Chloride 115 H (98-107) mmol/L Carbon Dioxide 15 L (22-30) mmol/L BUN 54 H (7-17) mg/dL Creatinine 2.61 H (0.52-1.04) mg/dL Glucose 124 H (74-99) mg/dL POC Glucose (mg/dL) 74 L (75-99) mg/dL Plasma Lactic Acid Harshal (0.7-2.0) mmol/L Magnesium 2.5 H (1.6-2.3) mg/dL 08/14/19 08/14/19 Range/Units 08:10 08:10 RBC (3.80-5.40) m/uL Hgb (11.4-16.0) gm/dL Hct (34.0-46.0) % MCV (80.0-100.0) fL MCHC (31.0-37.0) g/dL Lymphocytes # (1.0-4.8) k/uL Potassium (3.5-5.1) mmol/L Chloride (98-107) mmol/L Carbon Dioxide (22-30) mmol/L BUN (7-17) mg/dL Creatinine (0.52-1.04) mg/dL Glucose (74-99) mg/dL POC Glucose (mg/dL) 115 H (75-99) mg/dL Plasma Lactic Acid Harshal 2.9 H* (0.7-2.0) mmol/L Magnesium (1.6-2.3) mg/dL Microbiology - Last 24 Hours (Table) 08/12/19 19:40 Urine Culture - Preliminary Urine,Clean Catch Gram Neg Bacilli 08/12/19 19:40 Blood Culture - Preliminary Blood No Growth after 24 hours 08/12/19 22:00 Gram Stain - Preliminary Knee - Left Wound Culture - Preliminary Beta Hemolytic Strep Group G Assessment and Plan Plan: 1. Septic left knee arthroplasty. Blood urine and wound Cultures have been obtained ID and Ortho are on the case. Currently on cefepime IV due to previous cultures with Pseudomonas in October. Left knee wound cultures show evidence of gram-positive cocci gram-negative bacilli, awaiting final culture. Will consult Dr. Harrison for evaluation and discuss treatment options with patient and family. 2. Diabetes mellitus type 2, had hypoglycemic episode this morning. Levemir stopped will do sliding scale with meals. 6. Hypertension. Continue Coreg 25 mg twice daily, losartan 50 mg daily. 7. Hyperlipidemia. Continue atorvastatin. 8. Generalized anxiety disorder. Continue Xanax or 0.25 mg every 8 hours as needed. Dose of Valium and given this morning. 9. History of bowel resection, stable. 10. Tobacco use and dependence. Patient continues to smoke approximately 5 ci garettes per day. 11. DVT prophylaxis. Heparin subcut 12. GI prophylaxis. Protonix 13. Acute pain. Change to Dilaudid and [place] added when necessary. 14. Lactic acidosis. Lactic acid 2.9, IV fluids started. Patient will be admitted to the hospital for minimum of 2 night stay. Discharge plan: Possibly Home with [facility]. We will add PT and OT for evaluation of subacute rehab need. Impression and plan of care have been directed as dictated by the signing physician. Mirian Sheldon nurse practitioner acting as scribe for signing physician.
--- NOTE | 2019-08-14 11:38 | P.CONS ---
History of Present Illness - Reason for Consult Consult date: 08/14/19 Wound care - History of Present Illness This is a 74-year-old pleasant female who is being seen on 4 S. by the wound care center. Patient is known to the wound care center for nonhealing ulceration to the left knee. Patient had multiple surgeries to the left knee including removal of hardware and placement of spacer. During her course of wound care was discussed with the patient that the likelihood of the wound healing is minimal. Patient has been moved to the palliative care within the wound care setting. Patient was seen by Dr. Harrison for vascular assessment. Dr. Harrison suggested the patient have a above the knee amputation which the patient declined at that time. Discussed with patient that she is at increased risk of infection due to the open ulceration patient was aware of the risk and still declined amputation. Patient utilizes absorptive silver at home. Patient does not have home care the dressing is changed by her daughter Saturday. Review of Systems Review Of Systems: Constitutional: No fever, no chills, no night sweats. No weight change. No weakness, fatigue or lethargy. No daytime sleepiness. Integumentary:reports wounds, no lesions. No rash or pruritus. No unusual bruising. No change in hair or nails. Past Medical History Past Medical History: COPD, Diabetes Mellitus, Hyperlipidemia, Hypertension, Pneumonia Additional Past Medical History / Comment(s): currently being treated for UTI History of Any Multi-Drug Resistant Organisms: None Reported Past Surgical History: Bowel Resection, Hysterectomy, Joint Replacement, Orthopedic Surgery Additional Past Surgical History / Comment(s): colon resection with ileostomy/later reversal, surgery for fx left femur, left knee replacement 07/2018, Past Anesthesia/Blood Transfusion Reactions: No Reported Reaction Past Psychological History: No Psychological Hx Reported Additional Psychological History / Comment(s): . Retired. No recent international travel. No animals in the home. Family in the past owned the [employer] Smoking Status: Current some day smoker Past Alcohol Use History: None Reported Additional Past Alcohol Use History / Comment(s): 2 PPD for 56 years, No illicit drug use or alcohol use. Patient has home oxygen that she uses at nighttime only. Patient is a smoker of about 5 per day Past Drug Use History: None Reported - Past Family History Mother Additional Family Medical History / Comment(s): heart problems passed around 82 Father Family Medical History: Cancer Additional Family Medical History / Comment(s): lung ca passed at 84 Sister(s) Family Medical History: Cancer Additional Family Medical History / Comment(s): leukemia Daughter(s) Additional Family Medical History / Comment(s): Two adult daughters with no major medical problems Medications and Allergies Home Medications Medication Instructions Recorded Confirmed Type Aspirin EC [Ecotrin Low Dose] 81 mg PO HS 10/21/18 08/13/19 History Levothyroxine Sodium 25 mcg PO DAILY 08/13/19 08/13/19 History Sertraline [Zoloft] 100 mg PO DAILY 08/13/19 08/13/19 History Vit C/E/Zn/Coppr/Lutein/Zeaxan 1 cap PO BID 08/13/19 08/13/19 History [Preservision Areds 2 Softgel] glipiZIDE XL [Glucotrol Xl] 5 mg PO DAILY 08/13/19 08/13/19 History traZODone HCL 150 mg PO HS 08/13/19 08/13/19 History Allergies Allergy/AdvReac Type Severity Reaction Status Date / Time vancomycin Allergy Itching Verified 08/13/19 08:27 Physical Exam Vitals: Vital Signs Temp Pulse Resp BP Pulse Ox 08/14/19 08:48 143/63 08/14/19 07:20 66 110/64 08/14/19 07:15 71 18 105/61 93 L 08/14/19 00:56 97.5 F L 70 16 94/53 92 L 08/13/19 19:26 98.7 F 79 15 98/54 96 08/13/19 14:35 98.4 F 74 17 102/50 98 Intake and Output 08/13/19 08/14/19 08/14/19 22:59 06:59 14:59 Intake Total 400 Balance 400 Intake: Intake, IV Titration 400 Amount Cefepime 2 gm In Sodium 100 Chloride 0.9% 100 ml @ 200 mls/hr IVPB Q12HR [facility] Rx#:[id number] Sodium Chloride 0.9% 1, 300 000 ml @ 100 mls/hr IV . Q10H [facility] Rx#:[id number] Other: Voiding Method Toilet Toilet Toilet Incontinent # Voids 1 Physical exam: General Appearance: Alert, cooperative, no distress, appears stated age. Skin: Full-thickness nonhealing ulceration to the left knee etiology to surgical wound dehiscence, large amount of necrotic slough, exudate, and fibrin within wound bed. Copious amount of purulent drainage noted. No granulation seen throughout wound bed. No tunneling or undermining. Periwound show scarring no erythema or induration maceration or excoriation. noted purulent all other Skin color, texture, tugor normal, no rashes or lesions. Neurologic: Alert oriented x3 Results CBC & Chem 7: 08/14/19 08:10 08/14/19 08:10 Labs: Abnormal Lab Results - Last 24 Hours (Table) 08/13/19 08/13/19 08/13/19 Range/Units 12:07 12:27 12:45 RBC (3.80-5.40) m/uL Hgb (11.4-16.0) gm/dL Hct (34.0-46.0) % MCV (80.0-100.0) fL MCHC (31.0-37.0) g/dL Lymphocytes # (1.0-4.8) k/uL Potassium (3.5-5.1) mmol/L Chloride (98-107) mmol/L Carbon Dioxide (22-30) mmol/L BUN (7-17) mg/dL Creatinine (0.52-1.04) mg/dL Glucose (74-99) mg/dL POC Glucose (mg/dL) 55 L 56 L 67 L (75-99) mg/dL Plasma Lactic Acid Harshal (0.7-2.0) mmol/L Magnesium (1.6-2.3) mg/dL 08/13/19 08/13/19 08/13/19 Range/Units 13:03 13:22 16:54 RBC (3.80-5.40) m/uL Hgb (11.4-16.0) gm/dL Hct (34.0-46.0) % MCV (80.0-100.0) fL MCHC (31.0-37.0) g/dL Lymphocytes # (1.0-4.8) k/uL Potassium (3.5-5.1) mmol/L Chloride (98-107) mmol/L Carbon Dioxide (22-30) mmol/L BUN (7-17) mg/dL Creatinine (0.52-1.04) mg/dL Glucose (74-99) mg/dL POC Glucose (mg/dL) 51 L 105 H 186 H (75-99) mg/dL Plasma Lactic Acid Harshal (0.7-2.0) mmol/L Magnesium (1.6-2.3) mg/dL 08/13/19 08/14/19 08/14/19 Range/Units 20:01 07:06 07:25 RBC (3.80-5.40) m/uL Hgb (11.4-16.0) gm/dL Hct (34.0-46.0) % MCV (80.0-100.0) fL MCHC (31.0-37.0) g/dL Lymphocytes # (1.0-4.8) k/uL Potassium (3.5-5.1) mmol/L Chloride (98-107) mmol/L Carbon Dioxide (22-30) mmol/L BUN (7-17) mg/dL Creatinine (0.52-1.04) mg/dL Glucose (74-99) mg/dL POC Glucose (mg/dL) 188 H 51 L 57 L (75-99) mg/dL Plasma Lactic Acid Harshal (0.7-2.0) mmol/L Magnesium (1.6-2.3) mg/dL 08/14/19 08/14/19 08/14/19 Range/Units 07:33 08:10 08:10 RBC 3.08 L (3.80-5.40) m/uL Hgb 9.3 L (11.4-16.0) gm/dL Hct 31.3 L (34.0-46.0) % MCV 101.6 H D (80.0-100.0) fL MCHC 29.8 L (31.0-37.0) g/dL Lymphocytes # 0.4 L (1.0-4.8) k/uL Potassium 5.4 H (3.5-5.1) mmol/L Chloride 115 H (98-107) mmol/L Carbon Dioxide 15 L (22-30) mmol/L BUN 54 H (7-17) mg/dL Creatinine 2.61 H (0.52-1.04) mg/dL Glucose 124 H (74-99) mg/dL POC Glucose (mg/dL) 74 L (75-99) mg/dL Plasma Lactic Acid Harshal (0.7-2.0) mmol/L Magnesium 2.5 H (1.6-2.3) mg/dL 08/14/19 08/14/19 08/14/19 Range/Units 08:10 08:10 11:25 RBC (3.80-5.40) m/uL Hgb (11.4-16.0) gm/dL Hct (34.0-46.0) % MCV (80.0-100.0) fL MCHC (31.0-37.0) g/dL Lymphocytes # (1.0-4.8) k/uL Potassium (3.5-5.1) mmol/L Chloride (98-107) mmol/L Carbon Dioxide (22-30) mmol/L BUN (7-17) mg/dL Creatinine (0.52-1.04) mg/dL Glucose (74-99) mg/dL POC Glucose (mg/dL) 115 H 146 H (75-99) mg/dL Plasma Lactic Acid Harshal 2.9 H* (0.7-2.0) mmol/L Magnesium (1.6-2.3) mg/dL Microbiology - Last 24 Hours (Table) 08/12/19 19:40 Urine Culture - Preliminary Urine,Clean Catch Gram Neg Bacilli 08/12/19 19:40 Blood Culture - Preliminary Blood No Growth after 24 hours 08/12/19 22:00 Gram Stain - Preliminary Knee - Left Wound Culture - Preliminary Beta Hemolytic Strep Group G Assessment and Plan (1) Type 1 diabetes mellitus with other skin ulcer Current Visit: Yes Status: Acute Code(s): E10.622 - TYPE 1 DIABETES MELLITUS WITH OTHER SKIN ULCER; L98.499 - NON-PRESSURE CHRONIC ULCER OF SKIN OF SITES W UNSP SEVERITY SNOMED Code(s): 741707013 (2) 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 Vascular surgery consult with Dr. Harrison for possible amputation. At this time the patient is in the palliative care for wound care. We will continue with outpatient wound care treatments. Discussed with patient in length prior to hospitalization that the likelihood of the ulceration healing with minimal. Discussed with patient multiple options including amputation and palliative treatment. At that time patient's requested palliative treatment to continue. Thank you for the consultation. Any questions please contact the wound care center DNP note has been reviewed and discussed with Dr. Donahue and the impression and plan of care has been directed as dictated.
[2019-08-14] MEDS: HYDROcodone/APAP 5-325MG 1 EACH TAB PO PRN (14:28)
--- NOTE | 2019-08-14 15:11 | CDI ---
Documentation Clarification Form Date: 08/14/2019 02:28:00 PM From: Meli Ortiz RN, CCDS Admit Date: 08/12/2019 11:12:00 PM Patient Name: Glenny Rodriguez Visit Number: [id number] Discharge Date: ATTENTION: The Clinical Documentation Specialists (CDI) and [facility] Coding Staff appreciate your assistance in clarifying documentation. Please respond to the clarification below the line at the bottom and electronically sign. The CDI & [facility] Coding staff will review the response and follow-up if needed. Please note: Queries are made part of the Legal Health Record. If you have any questions, please contact the author of this message via ITS. Dr. Tommie Block Chronic kidney disease was documented in the ER evaluation on 08/11 and further clarification is requested. History/Risk Factors: Diabetes Mellitus, Hypertension, Urinary tract infection, Left knee septic arthritis 08/11 BUN 48 CR 2.38 GFR: 20 08/13 BUN 54, CR 2.61 GFR17 Clinical Indicators: 74 year old female with complaint of left knee pain and known history of a wound over her patella. Admission BUN, CR, GFR on admission as noted above was elevated. Treatment: .9 Saline @ 100 mls/hr IV -08/13 D5 % NS @ 75 mls/hr Monitor BUN, CR, Lytes, In order to capture the severity of condition, please clarify if the condition signifies: Acute renal failure, Please specify etiology (if known): Cortical Necrosis Medullary Necrosis Tubular Necrosis Acute kidney injury Acute on chronic renal failure CKD Stage 1 GFR >90 CKD Stage 2 GFR 60-89 CKD Stage 3 GFR 30-59 XX CKD Stage 4 GFR 15-29 Chronic renal failure/Chronic Kidney disease (CKD) please stage (if known): CKD Stage 1 GFR >90 CKD Stage 2 GFR 60-89 CKD Stage 3 GFR 30-59 CKD Stage 4 GFR 15-29 Other, please specify Unable to determine (Last Revision: July 2017) MTDD
--- NOTE | 2019-08-14 15:48 | OP ---
OPERATIVE REPORT This patient is known to me from the past. The patient has been coming to the office for vascular evaluation and carotid artery stenosis. The patient had a left total knee done in the past. She had this and complained of pain and infection of the left knee. I saw her a few months ago in the office, and the picture has not changed. She was seen by Orthopedics for consultation, also. The patient had this total knee done in 2018 followed by a spacer placed and multiple interventions for the left knee. MEDICAL HISTORY: History of COPD, diabetes mellitus, hyperlipidemia, hypertension, history of pneumonia. PERSONAL HISTORY: History of smoking. Continues to smoke. The patient was seen in her room. Neck supple. Trachea central. Chest has a few crackles at the lung bases. Abdomen is soft. Femorals are 1+. Patient has an open wound to the left knee with some drainage. The patient can flex her knee. PLAN: The patient is on IV antibiotic. I will discuss with the family and with Dr. Block. Most likely she will need above-knee amputation, provided she is cleared from a medical point of view. I will review her chart from the office. She does have some carotid issue, also. MMODL / IJN: [id number] /
[2019-08-14] MEDS: ALPRAZolam 0.25 MG TAB PO PRN (16:51)
[2019-08-14 17:00] LABS: Glucose,Whole Blood 93 mg/dL (75-99)
[2019-08-14 20:05] LABS: Glucose,Whole Blood 83 mg/dL (75-99)
[2019-08-14] MEDS: traZODone HCL 50 MG TAB PO SCH (20:47)
[2019-08-14] MEDS: ATORVASTATIN 40 MG TAB PO SCH (20:47)
[2019-08-14] MEDS: ASPIRIN 81 MG PO SCH (20:47)
--- NOTE | 2019-08-14 22:59 | PN ---
PROGRESS NOTE DATE OF SERVICE: 08/14/2019 REASON FOR FOLLOWUP: Left knee infection. INTERVAL HISTORY: The patient is currently afebrile. She is breathing comfortably. Pain to the left knee is currently controlled. Denies having any chest pain or cough. No abdominal pain or diarrhea. PHYSICAL EXAMINATION: Blood pressure is 95/52 with a pulse of 67, temperature of 97.6. She is 94% on room air. General description is an elderly female lying in bed in no distress. RESPIRATORY SYSTEM: Unlabored breathing. Clear to auscultation anteriorly. HEART: S1, S2. Regular rate and rhythm. ABDOMEN: Soft. No tenderness. Left knee wound with exposed. Wound base has some slough tissue. No significant surrounding redness or swelling. LABS: Hemoglobin is 11.3, white count 8.1. Wound culture with beta-hemolytic group C strep. DIAGNOSTIC IMPRESSION AND PLAN: Patient with a left knee chronic infection. Cultures are now showing beta-hemolytic group C strep. Antibiotic will be adjusted to cefazolin and . I had a detailed discussion with the patient, as well as daughter, who is a nurse, and discussed treatment options with them. For the curative option, the patient will need extensive debridement and removal of the hardware and extensive antibiotic therapy. However, they are worried about the patient with an underlying lung condition as well as skin condition; may not able to tolerate any surgery. Hence the goal of treatment will be more palliative. I did offer them oral antibiotic; however, they want to go with a trial of IV antibiotic. Will try to arrange for her on Saturday on the basis of the final cultures and will monitor her clinical course closely. MMODL / IJN: [id number] /
[2019-08-15 00:36] LABS: Glucose,Whole Blood 108 mg/dL (75-99)
[2019-08-15] MEDS: HYDROcodone/APAP 5-325MG 1 EACH TAB PO PRN ×2 (01:19→17:42)
[2019-08-15 06:58] LABS: Glucose,Whole Blood 81 mg/dL (75-99)
[2019-08-15] MEDS: CARVEDILOL 12.5 MG TAB PO SCH ×2 (07:41→17:41)
[2019-08-15] MEDS: LOSARTAN 50 MG TAB PO SCH (07:43)
[2019-08-15] MEDS: FENOFIBRATE 54 MG TAB PO SCH (08:03)
[2019-08-15] MEDS: CHOLECALCIFEROL 1,000 UNIT TAB PO SCH (08:04)
[2019-08-15] MEDS: SERTRALINE 100 MG TAB PO SCH (08:04)
[2019-08-15] MEDS: FAMOTIDINE 20 MG TAB PO SCH (08:04)
[2019-08-15] MEDS: LEVOTHYROXINE 25 MCG TAB PO SCH (08:04)
[2019-08-15] MEDS: HEPARIN SODIUM,PORCINE 5,000 UNIT/ML 1 ML VIAL SQ SCH ×2 (08:05→21:19)
[2019-08-15 08:06] LABS: HGB 8.9 gm/dL (11.4-16.0); Hypochromasia Marked; MCH 31.5 pg (25.0-35.0); MCHC 30.8 g/dL (31.0-37.0); MCV 102.3 fL (80.0-100.0); Macrocytosis Slight; Mean Platelet Volume 9.3; Platelet Count 187 k/uL (150-450); RBC 2.83 m/uL (3.80-5.40); WBC 4.9 k/uL (3.8-10.6)
[2019-08-15 08:21] LABS: Albumin 3.2 g/dL (3.5-5.0); Calcium 9.2 mg/dL (8.4-10.2); Potassium 4.7 mmol/L (3.5-5.1); Total Bilirubin 0.6 mg/dL (0.2-1.3); Total Protein 6.6 g/dL (6.3-8.2)
--- NOTE | 2019-08-15 08:53 | P.PN ---
Progress Note - Text Progress Note Date: 08/15/19 The patient is seen and examined at bedside. She is confused but comfortable. She is cooperative. At her left knee there is chronic nonhealing wound. There is no new erythema there is no drainage. Her thigh and calf are soft nontender. Assessment and plan Long history of multiple knee interventions at left knee with history of infected total knee arthroplasty subsequent fusion repeat irrigation and debridement and chronic nonhealing wound. The patient needs continued local wound care but may ultimately need further treatment with vascular surgery revascularized flap to help her need to fully heal. She should continue with her wound care plan at this point. We do not have any specific orthopedic interventional plans at this point is for her prior notes. She can follow-up with orthopedic as-needed basis.
[2019-08-15] MEDS ORDERED: CEFEPIME 2 GM in SODIUM CHLORIDE 0.9% 100 ML IVPB SCH (09:00)
--- NOTE | 2019-08-15 09:43 | P.PN ---
Subjective Progress Note Date: 08/15/19 Chief Complaint: left knee pain This is a 74-year-old female patient of Dr. Frazier with past history for COPD, diabetes mellitus type 2 insulin requiring, hypertension, hy perlipidemia, generalized osteoarthritis, generalized anxiety disorder, AAA. Patient has history of osteoarthritis and under the care of Dr. Lara status post left total knee arthroplasty last July. Subsequently, she was readmitted and underwent patellar retinaculum and quadriceps tendon repair. She was readmitted in September for surgical wound ulceration eschar with flap necrosis and underwent I&D was follow-up with Dr. Martinez. Patient presented to the emergency department with chief complaint of left knee pain worsening over the last 2 days, patient arrived via EMS with temperature of 100.0 left knee with hardware visible with purulent drainage noted. Patient received a dose of Zosyn and Vanco in the emergency room and is now on Cefepime IV. We will continue IV hydration. Consults for Dr. Amaya and Dr. Lara are in place. Blood urine and wound cultures have been done. Patient does have history of Pseudomonas and left knee in October. Patient will be admitted to the hospital. 08/13: Patient found this morning with a team called, patient was restless in bed. Blood sugar was 57 and amp of dextrose was given. D5 0.9 IV fluids started. Will attempt to better control pain with Dilaudid and [place] when necessary. 1 dose of Valium given. Labs were reviewed hemoglobin 9.3 BUN 54 creatinine 2.61 lactic acid 2.9, ESR 116. Vital signs are stable, patient remains afebrile blood pressure 143/63 heart rate 66 pulse ox 93% on room air. We will consult Dr. Harrison for evaluation of left knee. Patient is known to him in the past. Orthopedics plan to exhaust conservative treatment options at this time per family request, there are not any indications for surgical irriga tion and debridement at this time. Wound care is currently following patient. 08/14: Patient is doing better this morning seen awake and alert eating breakfast. Left knee culture was positive for beta hemolytic strep group G and followed by Dr. Amaya at this point. Remains on IV Cefepime. Had discussion with daughter Bria plan for IV antibiotics and conservative measures at this time. No invasive procedures, we will do trial of IV antibiotics as outpatient, daughter wants patient to return home. She is a nurse and is able to care for her. Vital signs remained stable, patient is afebrile, heart rate 67 blood pressure 93/43 pulse ox 94% on room air. Acute on chronic renal failure BUN was 61 creatinine was 2.99 this morning hemoglobin stable at 8.9 liver enzymes trending down AST 49 ALTs 49. Objective - Vital Signs Vital signs: Vital Signs Temp 97.4 F L 08/15/19 07:00 Pulse 67 08/15/19 07:00 Resp 16 08/15/19 07:00 BP 93/43 08/15/19 07:00 Pulse Ox 94 L 08/15/19 07:00 Intake & Output 08/14/19 08/15/19 08/15/19 18:59 06:59 18:59 Other: Voiding Method Toilet Toilet Incontinent # Voids 1 1 - Exam Constitutional: Denies anorexia, Denies chills, Denies fatigue, Denies fever, Ears, nose, mouth and throat: Denies dysphagia, Denies nasal congestion, Denies nasal discharge, Denies vertigo Cardiovascular: Denies chest pain, Denies decreased exercise tolerance, Denies dyspnea on exertion, Denies edema, Denies leg edema, Denies lightheadedness, Denies syncope Respiratory: Reports home oxygen, Denies cough, Denies cough with sputum, Denies dyspnea, Denies excessive sputum, Denies hemoptysis, Denies respiratory infections, Denies snoring Gastrointestinal: Denies abdominal pain, loss of appetite, nausea and vomiting Genitourinary: Denies dysuria, Denies urgency, Denies urinary frequency Musculoskeletal: Reports gait dysfunction, Denies frequent falls, Denies muscle weakness, Denies myalgias Musculoskeletal: left: knee pain, pain has improved and drainage has decreased Integumentary: Reports wound left knee, Denies pruritus, Denies rash Neurological: Reports gait dysfunction, Denies aphasia, Denies change in mentation, Denies change in speech, Denies seizures, Denies syncope Psychiatric: Increased pain and anxiety Endocrine: Denies fatigue, Denies weight change, Physical exam: Gen: This is a 74-year-old female. Patient resting comfortably in bed this morning HEENT: Head is atraumatic, normocephalic. Pupils equal, round. Sclerae is anicteric. NECK: Supple. No JVD. No lymphadenopathy. No thyromegaly. LUNGS: Clear to auscultation. No wheezes or rhonchi. No intercostal retractions. HEART: Regular rate and rhythm. Grade 2 systolic murmur ABDOMEN: Soft. Bowel sounds are present. No masses. No tenderness. EXTREMITIES: No pedal edema. No calf tenderness. Left knee dressing intact minimal purulent drainage today NEUROLOGICAL: Patient is awake, alert with minimal confusion. Cranial nerves 2 through 12 are grossly intact poor historian. - Labs CBC & Chem 7: 08/15/19 07:23 08/15/19 07:23 Labs: Abnormal Lab Results - Last 24 Hours (Table) 08/14/19 08/14/19 08/15/19 Range/Units 08:10 11:25 00:34 RBC (3.80-5.40) m/uL Hgb (11.4-16.0) gm/dL Hct (34.0-46.0) % MCV (80.0-100.0) fL MCHC (31.0-37.0) g/dL Chloride (98-107) mmol/L Carbon Dioxide (22-30) mmol/L BUN (7-17) mg/dL Creatinine (0.52-1.04) mg/dL POC Glucose (mg/dL) 146 H 108 H (75-99) mg/dL Plasma Lactic Acid Harshal 2.9 H* (0.7-2.0) mmol/L AST (14-36) U/L ALT (4-34) U/L Alkaline Phosphatase (38-126) U/L Albumin (3.5-5.0) g/dL 08/15/19 08/15/19 Range/Units 07:23 07:23 RBC 2.83 L (3.80-5.40) m/uL Hgb 8.9 L (11.4-16.0) gm/dL Hct 29.0 L (34.0-46.0) % MCV 102.3 H (80.0-100.0) fL MCHC 30.8 L (31.0-37.0) g/dL Chloride 113 H (98-107) mmol/L Carbon Dioxide 13 L (22-30) mmol/L BUN 61 H (7-17) mg/dL Creatinine 2.99 H (0.52-1.04) mg/dL POC Glucose (mg/dL) (75-99) mg/dL Plasma Lactic Acid Harshal (0.7-2.0) mmol/L AST 49 H (14-36) U/L ALT 49 H (4-34) U/L Alkaline Phosphatase 264 H (38-126) U/L Albumin 3.2 L (3.5-5.0) g/dL Microbiology - Last 24 Hours (Table) 08/12/19 19:40 Urine Culture - Final Urine,Clean Catch Escherichia coli 08/12/19 19:40 Blood Culture - Preliminary Blood No Growth after 48 hours 08/12/19 22:00 Gram Stain - Final Knee - Left Wound Culture - Final Beta Hemolytic Strep Group G Assessment and Plan Plan: 1. Septic left knee arthroplasty. Blood urine and wound Cultures have been obtained ID and Ortho are on the case. Currently on cefepime IV. Left knee wound cultures show beta hemolytic strep group B followed by Dr. Reddy. Spoke with daughter Bria plan for conservative measurements with outpatient IV antibiotics at this time 2. Diabetes mellitus type 2, stable sliding scale with meals 3. Hypertension. Continue Coreg 25 mg twice daily, losartan 50 mg daily. 4. Hyperlipidemia. Continue atorvastatin. 5. Generalized anxiety disorder. Continue Xanax or 0.25 mg every 8 hours as needed. 6. History of bowel resection, stable. 7. Tobacco use and dependence. Recommended nicotine patch 8. DVT prophylaxis. Heparin subcut 9. GI prophylaxis. Protonix 10. Acute pain. Improved Dilaudid and [place] when necessary 11. Lactic acidosis. Lactic acid 2.9, IV fluids started. 12. Stage V chronic kidney disease with acute tubular necrosis. will continue to monitor Patient will be admitted to the hospital for minimum of 2 night stay. Discharge plan: Possibly Home with [facility]. Will need PICC line for IV antibiotics as outpatient Impression and plan of care have been directed as dictated by the signing physician. Mirian Sheldon nurse practitioner acting as scribe for signing physician.
[2019-08-15 11:30] LABS: Glucose,Whole Blood 159 mg/dL (75-99)
[2019-08-15] MEDS: DEXTROSE 5%-0.9% NACL 1,000 ML IV SCH (17:02)
--- NOTE | 2019-08-15 18:19 | PN ---
PROGRESS NOTE DATE OF SERVICE: 08/15/2019 REASON FOR FOLLOWUP: Left knee infection. INTERVAL HISTORY: The patient is currently afebrile. She is breathing comfortably. The patient has been insisting on going home and smoking 1 cigarette. No other symptoms. She remains to be pleasantly confused though. Complaining of pain to the left knee but unable to quantify it any further. PHYSICAL EXAMINATION: Blood pressure 93/43, pulse of 67. Temperature is 97.4. She is 92% on room air. General description: The patient is an elderly female lying in bed in no distress. Respiratory system: Unlabored breathing. Clear to auscultation anteriorly. Heart S1, S2. Regular rate and rhythm. ABDOMEN: Soft, no tenderness. Left knee is currently dressed up. No obvious drainage on the dressing. LABS: Hemoglobin is 8.8, white count 4.9, BUN of 61, creatinine is 2.99. DIAGNOSTIC IMPRESSION AND PLAN: Patient with left knee chronic infection. Culture now showing mostly strep. Antibiotic adjusted to cefazolin 2 g q.8h, to continue. May need a PICC line and outpatient IV Rocephin. Local care to continue as ordered. Continue supportive care. MMODL / IJN: [id number] /
[2019-08-15] MEDS: ASPIRIN 81 MG PO SCH (21:19)
[2019-08-15] MEDS: ATORVASTATIN 40 MG TAB PO SCH (21:19)
[2019-08-15] MEDS: traZODone HCL 50 MG TAB PO SCH (21:19)
[2019-08-16] MEDS: SODIUM CHLORIDE 0.9% 1,000 ML IV SCH (00:01)
[2019-08-16] MEDS: DEXTROSE 5%-0.9% NACL 1,000 ML IV SCH (00:43)
[2019-08-16 08:11] LABS: Albumin 2.9 g/dL (3.5-5.0); Calcium 9.2 mg/dL (8.4-10.2); Potassium 5.2 mmol/L (3.5-5.1); Total Bilirubin 0.4 mg/dL (0.2-1.3); Total Protein 6.2 g/dL (6.3-8.2)
[2019-08-16] MEDS ORDERED: FUROSEMIDE 10 MG/ML 4 ML VIAL IV STA (08:16)
[2019-08-16 08:40] LABS: HCT 27.1 % (34.0-46.0); HGB 8.4 gm/dL (11.4-16.0); Hypochromasia Marked; MCH 30.9 pg (25.0-35.0); MCHC 30.9 g/dL (31.0-37.0); MCV 99.8 fL (80.0-100.0); Mean Platelet Volume 9.2; Platelet Count 212 k/uL (150-450); RBC 2.72 m/uL (3.80-5.40); RDW 13.3 % (11.5-15.5); WBC 5.6 k/uL (3.8-10.6)
[2019-08-16] MEDS ORDERED: FUROSEMIDE 40 MG TAB PO STA (08:52)
[2019-08-16 09:18] LABS: Glucose,Whole Blood 130 mg/dL (75-99)
[2019-08-16] MEDS: HYDROmorphone 1 MG/ML 1 ML SYRINGE IVP PRN ×2 (09:52→22:45)
--- NOTE | 2019-08-16 10:02 | P.PN ---
Subjective Progress Note Date: 08/16/19 Chief Complaint: left knee pain This is a 74-year-old female patient of Dr. Frazier with past history for COPD, diabetes mellitus type 2 insulin requiring, hypertension, hy perlipidemia, generalized osteoarthritis, generalized anxiety disorder, AAA. Patient has history of osteoarthritis and under the care of Dr. Lara status post left total knee arthroplasty last July. Subsequently, she was readmitted and underwent patellar retinaculum and quadriceps tendon repair. She was readmitted in September for surgical wound ulceration eschar with flap necrosis and underwent I&D was follow-up with Dr. Martinez. Patient presented to the emergency department with chief complaint of left knee pain worsening over the last 2 days, patient arrived via EMS with temperature of 100.0 left knee with hardware visible with purulent drainage noted. Patient received a dose of Zosyn and Vanco in the emergency room and is now on Cefepime IV. We will continue IV hydration. Consults for Dr. Amaya and Dr. Lara are in place. Blood urine and wound cultures have been done. Patient does have history of Pseudomonas and left knee in October. Patient will be admitted to the hospital. 08/13: Patient found this morning with a team called, patient was restless in bed. Blood sugar was 57 and amp of dextrose was given. D5 0.9 IV fluids started. Will attempt to better control pain with Dilaudid and Muldoon when necessary. 1 dose of Valium given. Labs were reviewed hemoglobin 9.3 BUN 54 creatinine 2.61 lactic acid 2.9, ESR 116. Vital signs are stable, patient remains afebrile blood pressure 143/63 heart rate 66 pulse ox 93% on room air. We will consult Dr. Harrison for evaluation of left knee. Patient is known to him in the past. Orthopedics plan to exhaust conservative treatment options at this time per family request, there are not any indications for surgical irriga tion and debridement at this time. Wound care is currently following patient. 08/14: Patient is doing better this morning seen awake and alert eating breakfast. Left knee culture was positive for beta hemolytic strep group G and followed by Dr. Amaya at this point. Remains on IV Cefepime. Had discussion with daughter Bria plan for IV antibiotics and conservative measures at this time. No invasive procedures, we will do trial of IV antibiotics as outpatient, daughter wants patient to return home. She is a nurse and is able to care for her. Vital signs remained stable, patient is afebrile, heart rate 67 blood pressure 93/43 pulse ox 94% on room air. Acute on chronic renal failure BUN was 61 creatinine was 2.99 this morning hemoglobin stable at 8.9 liver enzymes trending down AST 49 ALTs 49. 08/15: Patient seen this morning lying in bed. She appears to be short of breath and more confused. We will discontinue morphine IV, and give patient 1 dose 40 mg IV Lasix. Vital signs have been stable, she is afebrile, heart also 82, pressure 127/61, pulse ox 97% on room air. Labs were reviewed, hemoglobin 8.4, sodium 142, potassium 5.2, chloride 118, CO2 15, BUN 57, creatinine 3.04 for enzymes are trending down AST is 38 ALTs 38. Plan for no invasive procedures of left knee continue with IV antibiotics daughter has expressed she does not want any surgeries at this time. Urine cultures were positive for E. coli patient's currently cefazolin. Will repeat labs in the morning. Objective - Vital Signs Vital signs: Vital Signs Temp 98.2 F 08/16/19 04:11 Pulse 82 08/16/19 04:11 Resp 17 08/16/19 04:11 BP 127/61 08/16/19 04:11 Pulse Ox 97 08/16/19 04:11 Intake & Output 08/15/19 08/16/19 08/16/19 18:59 06:59 18:59 Intake Total 200 Balance 200 Intake: Oral 200 Other: Voiding Method Toilet Toilet # Voids 1 1 - Exam Constitutional: Denies anorexia, Denies chills, Denies fatigue, Denies fever, Ears, nose, mouth and throat: Denies dysphagia, Denies nasal congestion, Denies nasal discharge, Denies vertigo Cardiovascular: Denies chest pain, Denies decreased exercise tolerance, Denies dyspnea on exertion, Denies edema, Denies leg edema, Denies lightheadedness, Denies syncope Respiratory: Reports home oxygen, Denies cough, Denies cough with sputum, Denies dyspnea, Denies excessive sputum, Denies hemoptysis, Denies respiratory infections, Denies snoring Gastrointestinal: Denies abdominal pain, loss of appetite, nausea and vomiting Genitourinary: Denies dysuria, Denies urgency, Denies urinary frequency Musculoskeletal: Reports gait dysfunction, Denies frequent falls, Denies muscle weakness, Denies myalgias Musculoskeletal: left: knee pain, pain has improved and drainage has decreased Integumentary: Reports wound left knee, Denies pruritus, Denies rash Neurological: Reports gait dysfunction, Denies aphasia, Denies change in mentation, Denies change in speech, Denies seizures, Denies syncope Psychiatric: Increased pain and anxiety, more confused Endocrine: Denies fatigue, Denies weight change, Physical exam: Gen: This is a 74-year-old female. Patient appears short of breath. HEENT: Head is atraumatic, normocephalic. Pupils equal, round. Sclerae is anicteric. NECK: Supple. No JVD. No lymphadenopathy. No thyromegaly. LUNGS: Lung sounds diminished, with fine crackles. No wheezes or rhonchi. No intercostal retractions. HEART: Regular rate and rhythm. Grade 2 systolic murmur ABDOMEN: Soft. Bowel sounds are present. No masses. No tenderness. EXTREMITIES: No pedal edema. No calf tenderness. Left knee dressing intact minimal purulent drainage today NEUROLOGICAL: Patient is awake, with minimal confusion. Cranial nerves 2 through 12 are grossly intact poor historian. - Labs CBC & Chem 7: 08/16/19 07:05 08/16/19 07:05 Labs: Abnormal Lab Results - Last 24 Hours (Table) 08/15/19 08/16/19 08/16/19 Range/Units 11:28 07:05 07:05 RBC 2.72 L (3.80-5.40) m/uL Hgb 8.4 L (11.4-16.0) gm/dL Hct 27.1 L (34.0-46.0) % MCHC 30.9 L (31.0-37.0) g/dL Potassium 5.2 H (3.5-5.1) mmol/L Chloride 118 H (98-107) mmol/L Carbon Dioxide 15 L (22-30) mmol/L BUN 57 H (7-17) mg/dL Creatinine 3.04 H (0.52-1.04) mg/dL POC Glucose (mg/dL) 159 H (75-99) mg/dL AST 38 H (14-36) U/L ALT 38 H (4-34) U/L Alkaline Phosphatase 298 H (38-126) U/L Total Protein 6.2 L (6.3-8.2) g/dL Albumin 2.9 L (3.5-5.0) g/dL 08/16/19 Range/Units 09:15 RBC (3.80-5.40) m/uL Hgb (11.4-16.0) gm/dL Hct (34.0-46.0) % MCHC (31.0-37.0) g/dL Potassium (3.5-5.1) mmol/L Chloride (98-107) mmol/L Carbon Dioxide (22-30) mmol/L BUN (7-17) mg/dL Creatinine (0.52-1.04) mg/dL POC Glucose (mg/dL) 130 H (75-99) mg/dL AST (14-36) U/L ALT (4-34) U/L Alkaline Phosphatase (38-126) U/L Total Protein (6.3-8.2) g/dL Albumin (3.5-5.0) g/dL Microbiology - Last 24 Hours (Table) 08/12/19 19:40 Blood Culture - Preliminary Blood No Growth after 72 hours 08/12/19 19:40 Urine Culture - Final Urine,Clean Catch Escherichia coli Assessment and Plan Plan: 1. Septic left knee arthroplasty. Blood urine and wound Cultures have been obtained ID and Ortho are on the case. Switch to cefazolin. Left knee wound cultures show beta hemolytic strep group B followed by Dr. Reddy. Spoke with daughter Bria plan for conservative measurements with outpatient IV antibiotics at this time 2. Diabetes mellitus type 2, stable sliding scale with meals 3. Hypertension. Continue Coreg 25 mg twice daily, losartan 50 mg daily. 4. Hyperlipidemia. Continue atorvastatin. 5. Generalized anxiety disorder. Continue Xanax or 0.25 mg every 8 hours as needed. 6. History of bowel resection, stable. 7. Tobacco use and dependence. Recommended nicotine patch 8. DVT prophylaxis. Heparin subcut 9. GI prophylaxis. Protonix 10. Acute pain. Improved Dilaudid and Muldoon when necessary. Morphine was discontinued. 11. Lactic acidosis. Lactic acid 2.9, IV fluids started. 12. Stage V chronic kidney disease with acute tubular necrosis. will continue to monitor, repeat labs in the morning. Patient will be admitted to the hospital for minimum of 2 night stay. Discharge plan: Possibly Home with [facility]. Will need PICC line for IV antibiotics as outpatient Impression and plan of care have been directed as dictated by the signing physician. Mirian Sheldon nurse practitioner acting as scribe for signing physician.
[2019-08-16 10:04] LABS: ABG Base Excess -13.4 mmol/L; ABG HCO3 14 mmol/L (21-25); ABG Oxygen Saturation 85.9 % (94-97); ABG PCO2 30 mmHg (35-45); ABG PH 7.27 (7.35-7.45); ABG TCO2 15 mmol/L (19-24); Allen Test Performed? Yes
[2019-08-16 10:08] LABS: ABG PO2 53 mmHg (83-108)
[2019-08-16 10:37] LABS: Glucose,Whole Blood 139 mg/dL (75-99)
--- NOTE | 2019-08-16 10:42 | XR ---
EXAMINATION TYPE: XR chest 1V portable DATE OF EXAM: 08/16/2019 HISTORY: sob. REFERENCE: Previous study dated 08/12/2019. FINDINGS: Lung volumes are prominent. Heart is mildly enlarged. There is worsening pneumonia at the left lung base. The right lung is relatively clear. I cannot excl ude small, bilateral effusions. IMPRESSION: 1. COPD. 2. WORSENING LEFT BASILAR PNEUMONIA.
[2019-08-16] MEDS: CARVEDILOL 12.5 MG TAB PO SCH ×2 (11:27→17:46)
[2019-08-16] MEDS: LEVOTHYROXINE 25 MCG TAB PO SCH (11:28)
[2019-08-16] MEDS: FAMOTIDINE 20 MG TAB PO SCH (11:28)
[2019-08-16] MEDS: CHOLECALCIFEROL 1,000 UNIT TAB PO SCH (11:28)
[2019-08-16] MEDS: LOSARTAN 50 MG TAB PO SCH (11:29)
[2019-08-16] MEDS: SERTRALINE 100 MG TAB PO SCH (11:29)
--- NOTE | 2019-08-16 12:05 | P.CNPUL ---
History of Present Illness Consult date: 08/16/19 Chief complaint: Altered mental status History of present illness: Patient is a very pleasant 74-year-old female who was transferred to the [facility] unit as the patient was found to be quite short of breath and progressively more confused by the primary care physician team. The patient is a very complicated history of a septic joint involving the left knee. The patient was hospitalized for ongoing infection. The patient was being treated with broad-spectrum antibiotics as the patient was found to have a beta hemolytic strep group G from the left knee cultures. Infectious disease was also involved in the case and the patient was covered with appropriate antibiotics. Nevertheless, this morning, the patient was found to be quite restless, lethargic, confused, restless in bed, having tachypnea. At that point, a chest x-ray was done that showed no acute abnormalities. There was some limited infiltration of the left lung base consistent with a left lower lobe pneumonia. The blood work showed an acute on chronic kidney failure with a creatinine being up to 3.04. The patient also developed an anion gap metabolic acidosis. Lactic acid level earlier was nonelevated. A blood gas was done that showed a pH of 7.27 with a pCO2 of 30 and pO2 of 53. White cell count from this morning was 5.6 and hemoglobin was at 8.4. Accordingly, the patient got transferred to the intensive care unit. Noted this blood gases was done and FiO2 of 32%. In terms of her knee, this patient has a extensive history in regards to her l eft knee. Patient states approximately she began to experience increased pain at the left knee. She denies any injuries. She is unable to flex the left knee, which is chronic following her most recent surgical intervention. Since her admission she has been started on Cefepime. It appears the patient had received 1 dose of vancomycin and 1 dose of Zosyn. Patient states since her admission she's had 95% improvement of her left knee pain. Patient is known to have undergone a left total knee arthroplasty on 08/05/[address] Gaspar at [facility]. Post operatively she was readmitted and underwent further surgical intervention for a patellar retinaculum and quadriceps tendon repair performed on 09/09/2017. She was seen and examined by orthopedics on 09/25/2018 and underwent incision and drainage of the left knee performed by Dr. Vincenzo Lara on 09/26/2018. During surgical intervention she was found have significant soft tissue loss which may have required further skin grafting or even muscle flap. Patient was seen by Dr. Harrison vascular surgery. Patient was transferred for further surgical intervention. Patient subsequently underwent further significant surgery at her left knee in which previous total knee arthroplasty hardware was removed and a femoral tibial david and apparent antibiotic interbody spacer was placed. Patient stated she's had significant difficulty with wound healing since that surgery in the summer. She continued to have an open wound over the left anterior knee which would be superior to the patella. She states she has continued to work with wound care. She feels overall her wound has had significant improvement following surgical intervention in the summer. Previous dictation states the patient's family would like to exhaust conservative treatment options and would like to continue with IV antibiotics while avoiding any surgical intervention. Patient states at the bedside she elected to continue with conservative nonoperative treatments as well. Patient does have a significant medical history which includes smoker, COPD, diabetes mellitus, hyperlipidemia, hypertension, and is currently being treated for urinary tract infection. . Review of Systems ROS unobtainable: due to mental status Past Medical History Past Medical History: COPD, Diabetes Mellitus, Hyperlipidemia, Hypertension, Pneumonia Additional Past Medical History / Comment(s): Septic arthritis, COPD, diabetes mellitus, hypertension, hyperlipidemia, chronic anxiety, history of smoking, previous history of UTI History of Any Multi-Drug Resistant Organisms: None Reported Past Surgical History: Bowel Resection, Hysterectomy, Joint Replacement, Orthopedic Surgery Additional Past Surgical History / Comment(s): colon resection with ileostomy/later reversal, surgery for fx left femur, left knee replacement 07/2018, Past Anesthesia/Blood Transfusion Reactions: No Reported Reaction Past Psychological History: No Psychological Hx Reported Additional Psychological History / Comment(s): . Retired. No recent international travel. No animals in the home. Family in the past owned the [employer] Smoking Status: Current some day smoker Past Alcohol Use History: None Reported Additional Past Alcohol Use History / Comment(s): 2 PPD for 56 years, No illicit drug use or alcohol use. Patient has home oxygen that she uses at nighttime only. Patient is a smoker of about 5 per day Past Drug Use History: None Reported - Past Family History Mother Additional Family Medical History / Comment(s): heart problems passed around 82 Father Family Medical History: Cancer Additional Family Medical History / Comment(s): lung ca passed at 84 Sister(s) Family Medical History: Cancer Additional Family Medical History / Comment(s): leukemia Daughter(s) Additional Family Medical History / Comment(s): Two adult daughters with no major medical problems Medications and Allergies Home Medications Medication Instructions Recorded Confirmed Type Aspirin EC [Ecotrin Low Dose] 81 mg PO HS 10/21/18 08/13/19 History Levothyroxine Sodium 25 mcg PO DAILY 08/13/19 08/13/19 History Sertraline [Zoloft] 100 mg PO DAILY 08/13/19 08/13/19 History Vit C/E/Zn/Coppr/Lutein/Zeaxan 1 cap PO BID 08/13/19 08/13/19 History [Preservision Areds 2 Softgel] glipiZIDE XL [Glucotrol Xl] 5 mg PO DAILY 08/13/19 08/13/19 History traZODone HCL 150 mg PO HS 08/13/19 08/13/19 History Allergies Allergy/AdvReac Type Severity Reaction Status Date / Time vancomycin Allergy Itching Verified 08/13/19 08:27 Physical Exam Vitals: Vital Signs Temp Pulse Pulse Resp BP BP Pulse Ox 08/16/19 11:30 98.0 F 72 8 L 103/88 92 L 08/16/19 11:00 88 17 96/67 92 L 08/16/19 10:36 19 08/16/19 08:35 97.8 F 98 28 H 154/79 08/16/19 08:25 28 H 08/16/19 04:11 98.2 F 82 17 127/61 97 08/16/19 04:00 20 08/15/19 23:22 20 08/15/19 21:15 97.6 F 78 20 105/58 96 08/15/19 20:00 20 08/15/19 15:00 97.8 F 55 L 20 126/50 96 Intake and Output 08/15/19 08/16/19 08/16/19 22:59 06:59 14:59 Intake Total 150 50 Balance 150 50 Intake: Oral 150 50 Other: Voiding Method Toilet Bedside Commode # Voids 1 Gen. appearance the patient is confused and restless in bed. She'll occasionally moans. She is unable to hold a conversation. She is a bit tachypneic also. Head exam was generally normal. There was no scleral icterus or corneal arcus. Mucous membranes were moist. Neck was supple and without jugular venous distension, thyromegaly, or carotid bruits. Carotids were easily palpable bilaterally. There was no adenopathy. Mucus from veins are quite dry and there is no significant oropharyngeal candidiasis. Lungs sounds are diminished bilaterally with some fine crackles. No significant wheezes or rhonchi. Cardiac exam revealed the PMI to be normally situated and sized. The rhythm was regular and no extrasystoles were noted during several minutes of auscultation. The first and second heart sounds were normal and physiologic splitting of the second heart sound was noted. There were no murmurs, rubs, clicks, or gallops. Abdominal exam revealed normal bowel sounds. The abdomen was soft, non-tender, and without masses, organomegaly, or appreciable enlargement of the abdominal aorta. Extremities the patient has atrophic muscles in lower extremity bilaterally. There is a wound over the anterior aspect of the left knee and the wound is open inspect with Aquacel and appropriate dressing is applied. The knee joint has been confused for now and the patient has no flexion. There is diminished p ulses in lower extremity is bilaterally. No cyanosis. No clubbing. Examination of the skin revealed no evidence of significant rashes, suspicious appearing nevi or other concerning lesions. Neurologic the patient is awake and confused. Cranial nerves are intact. Motor function is intact in all 4 extremities. Results - Laboratory Findings CBC and BMP: 08/16/19 07:05 08/16/19 07:05 ABG ABG pH 7.27 (7.35-7.45) L 08/16/19 10:01 ABG pCO2 30 mmHg (35-45) L 08/16/19 10:01 ABG pO2 53 mmHg (83-108) L* 08/16/19 10:01 ABG O2 Saturation 85.9 % (94-97) L 08/16/19 10:01 PT/INR, D-dimer PT 9.7 sec (9.0-12.0) 08/12/19 19:40 INR 0.9 (<1.2) 08/12/19 19:40 Abnormal lab findings: Abnormal Labs 08/12/19 08/12/19 08/12/19 19:40 19:40 19:40 RBC 3.46 L Hgb 10.4 L Hct 32.5 L MCV MCHC Neutrophils # 9.5 H Lymphocytes # 0.6 L ESR 116 H ABG pH ABG pCO2 ABG pO2 ABG HCO3 ABG Total CO2 ABG O2 Saturation Sodium 134 L Potassium Chloride Carbon Dioxide BUN 48 H Creatinine 2.38 H Glucose 185 H POC Glucose (mg/dL) Plasma Lactic Acid Harshal Magnesium 2.5 H AST 81 H ALT 83 H Alkaline Phosphatase 297 H Lactate Dehydrogenase 646 H C-Reactive Protein 230.3 H Total Protein Albumin Procalcitonin Urine Appearance Cloudy H Urine Protein 2+ H Urine Glucose (UA) 1+ H Urine Nitrite Positive H Ur Leukocyte Esterase Trace H Urine WBC 7 H Urine Bacteria Moderate H Urine Mucus Rare H 08/12/19 08/13/19 08/13/19 19:40 07:10 07:39 RBC Hgb Hct MCV MCHC Neutrophils # Lymphocytes # ESR ABG pH ABG pCO2 ABG pO2 ABG HCO3 ABG Total CO2 ABG O2 Saturation Sodium Potassium Chloride Carbon Dioxide BUN Creatinine Glucose POC Glucose (mg/dL) 62 L 61 L Plasma Lactic Acid Harshal Magnesium AST ALT Alkaline Phosphatase Lactate Dehydrogenase C-Reactive Protein Total Protein Albumin Procalcitonin 0.20 H Urine Appearance Urine Protein Urine Glucose (UA) Urine Nitrite Ur Leukocyte Esterase Urine WBC Urine Bacteria Urine Mucus 08/13/19 08/13/19 08/13/19 07:59 08:17 12:07 RBC Hgb Hct MCV MCHC Neutrophils # Lymphocytes # ESR ABG pH ABG pCO2 ABG pO2 ABG HCO3 ABG Total CO2 ABG O2 Saturation Sodium Potassium Chloride Carbon Dioxide BUN Creatinine Glucose POC Glucose (mg/dL) 60 L 68 L 55 L Plasma Lactic Acid Harshal Magnesium AST ALT Alkaline Phosphatase Lactate Dehydrogenase C-Reactive Protein Total Protein Albumin Procalcitonin Urine Appearance Urine Protein Urine Glucose (UA) Urine Nitrite Ur Leukocyte Esterase Urine WBC Urine Bacteria Urine Mucus 08/13/19 08/13/19 08/13/19 12:27 12:45 13:03 RBC Hgb Hct MCV MCHC Neutrophils # Lymphocytes # ESR ABG pH ABG pCO2 ABG pO2 ABG HCO3 ABG Total CO2 ABG O2 Saturation Sodium Potassium Chloride Carbon Dioxide BUN Creatinine Glucose POC Glucose (mg/dL) 56 L 67 L 51 L Plasma Lactic Acid Harshal Magnesium AST ALT Alkaline Phosphatase Lactate Dehydrogenase C-Reactive Protein Total Protein Albumin Procalcitonin Urine Appearance Urine Protein Urine Glucose (UA) Urine Nitrite Ur Leukocyte Esterase Urine WBC Urine Bacteria Urine Mucus 08/13/19 08/13/19 08/13/19 13:22 16:54 20:01 RBC Hgb Hct MCV MCHC Neutrophils # Lymphocytes # ESR ABG pH ABG pCO2 ABG pO2 ABG HCO3 ABG Total CO2 ABG O2 Saturation Sodium Potassium Chloride Carbon Dioxide BUN Creatinine Glucose POC Glucose (mg/dL) 105 H 186 H 188 H Plasma Lactic Acid Harshal Magnesium AST ALT Alkaline Phosphatase Lactate Dehydrogenase C-Reactive Protein Total Protein Albumin Procalcitonin Urine Appearance Urine Protein Urine Glucose (UA) Urine Nitrite Ur Leukocyte Esterase Urine WBC Urine Bacteria Urine Mucus 08/14/19 08/14/19 08/14/19 07:06 07:25 07:33 RBC Hgb Hct MCV MCHC Neutrophils # Lymphocytes # ESR ABG pH ABG pCO2 ABG pO2 ABG HCO3 ABG Total CO2 ABG O2 Saturation Sodium Potassium Chloride Carbon Dioxide BUN Creatinine Glucose POC Glucose (mg/dL) 51 L 57 L 74 L Plasma Lactic Acid Harshal Magnesium AST ALT Alkaline Phosphatase Lactate Dehydrogenase C-Reactive Protein Total Protein Albumin Procalcitonin Urine Appearance Urine Protein Urine Glucose (UA) Urine Nitrite Ur Leukocyte Esterase Urine WBC Urine Bacteria Urine Mucus 08/14/19 08/14/19 08/14/19 08:10 08:10 08:10 RBC 3.08 L Hgb 9.3 L Hct 31.3 L MCV 101.6 H D MCHC 29.8 L Neutrophils # Lymphocytes # 0.4 L ESR ABG pH ABG pCO2 ABG pO2 ABG HCO3 ABG Total CO2 ABG O2 Saturation Sodium Potassium 5.4 H Chloride 115 H Carbon Dioxide 15 L BUN 54 H Creatinine 2.61 H Glucose 124 H POC Glucose (mg/dL) Plasma Lactic Acid Harshal 2.9 H* Magnesium 2.5 H AST ALT Alkaline Phosphatase Lactate Dehydrogenase C-Reactive Protein Total Protein Albumin Procalcitonin Urine Appearance Urine Protein Urine Glucose (UA) Urine Nitrite Ur Leukocyte Esterase Urine WBC Urine Bacteria Urine Mucus 08/14/19 08/14/19 08/15/19 08:10 11:25 00:34 RBC Hgb Hct MCV MCHC Neutrophils # Lymphocytes # ESR ABG pH ABG pCO2 ABG pO2 ABG HCO3 ABG Total CO2 ABG O2 Saturation Sodium Potassium Chloride Carbon Dioxide BUN Creatinine Glucose POC Glucose (mg/dL) 115 H 146 H 108 H Plasma Lactic Acid Harshal Magnesium AST ALT Alkaline Phosphatase Lactate Dehydrogenase C-Reactive Protein Total Protein Albumin Procalcitonin Urine Appearance Urine Protein Urine Glucose (UA) Urine Nitrite Ur Leukocyte Esterase Urine WBC Urine Bacteria Urine Mucus 08/15/19 08/15/19 08/15/19 07:23 07:23 11:28 RBC 2.83 L Hgb 8.9 L Hct 29.0 L MCV 102.3 H MCHC 30.8 L Neutrophils # Lymphocytes # ESR ABG pH ABG pCO2 ABG pO2 ABG HCO3 ABG Total CO2 ABG O2 Saturation Sodium Potassium Chloride 113 H Carbon Dioxide 13 L BUN 61 H Creatinine 2.99 H Glucose POC Glucose (mg/dL) 159 H Plasma Lactic Acid Harshal Magnesium AST 49 H ALT 49 H Alkaline Phosphatase 264 H Lactate Dehydrogenase C-Reactive Protein Total Protein Albumin 3.2 L Procalcitonin Urine Appearance Urine Protein Urine Glucose (UA) Urine Nitrite Ur Leukocyte Esterase Urine WBC Urine Bacteria Urine Mucus 08/16/19 08/16/19 08/16/19 07:05 07:05 09:15 RBC 2.72 L Hgb 8.4 L Hct 27.1 L MCV MCHC 30.9 L Neutrophils # Lymphocytes # ESR ABG pH ABG pCO2 ABG pO2 ABG HCO3 ABG Total CO2 ABG O2 Saturation Sodium Potassium 5.2 H Chloride 118 H Carbon Dioxide 15 L BUN 57 H Creatinine 3.04 H Glucose POC Glucose (mg/dL) 130 H Plasma Lactic Acid Harshal Magnesium AST 38 H ALT 38 H Alkaline Phosphatase 298 H Lactate Dehydrogenase C-Reactive Protein Total Protein 6.2 L Albumin 2.9 L Procalcitonin Urine Appearance Urine Protein Urine Glucose (UA) Urine Nitrite Ur Leukocyte Esterase Urine WBC Urine Bacteria Urine Mucus 08/16/19 08/16/19 10:01 10:36 RBC Hgb Hct MCV MCHC Neutrophils # Lymphocytes # ESR ABG pH 7.27 L ABG pCO2 30 L ABG pO2 53 L* ABG HCO3 14 L ABG Total CO2 15 L ABG O2 Saturation 85.9 L Sodium Potassium Chloride Carbon Dioxide BUN Creatinine Glucose POC Glucose (mg/dL) 139 H Plasma Lactic Acid Harshal Magnesium AST ALT Alkaline Phosphatase Lactate Dehydrogenase C-Reactive Protein Total Protein Albumin Procalcitonin Urine Appearance Urine Protein Urine Glucose (UA) Urine Nitrite Ur Leukocyte Esterase Urine WBC Urine Bacteria Urine Mucus - Diagnostic Findings Chest x-ray: image reviewed Assessment and Plan Plan: 1 septic left knee arthritis. The patient's most recent cultures indicating strep group G and the patient is currently on IV cefepime. Infectious diseases on the case for now. Orthopedic surgery is also on the case. The patient has had an extensive history along the left knee including multiple surgeries and she is also being considered for amputation, that she declined 2 altered mental status, mainly due to metabolic changes including metabolic encephalopathy related to sepsis, septic arthritis, left lower lobe pneumonia metabolic acidosis 3 left lower lobe pneumonia 4 acute on chronic kidney disease. The patient is an acute kidney injury and there is a progressive rise in the creatinine with the development of a non- anion gap metabolic acidosis contributing to her overall acidosis in general. Blood gas show significant compensation, respiratory compensation. 5 acute hypoxic respiratory failure secondary to above. The patient has COPD and left lower lobe pneumonia 6 diabetes mellitus type 2 7 hypertension 8 hyperlipidemia 9 chronic generalized anxiety disorder 10 chronic kidney disease, stage IV 11 impaired performance and functional status with obvious signs of malnourishment 12 E. coli urinary tract infection Plan Admit this patient to the ICU Chest x-ray was noted Blood gases was noted Continued IV cefepime Start the patient on D5 with 150 mEq of sodium bicarbonate at the rate of 100 mL an hour to correct her underlying anion gap metabolic acidosis Monitor renal function insert a Coyne catheter Established lumen catheter Improve oxygenation and the patient provided oxygen between 3-10 L per minute and a saturation above 92% Monitor mental status acutely the patient nothing by mouth for now. Hold all of the oral medication for now Monitor blood sugars Infectious disease on the case Orthopedic surgeries on the case We'll continue to follow, the prognosis poor and we are recommending a CODE STATUS change in this patient based on her medical problems and comorbidities. Time with Patient: Greater than 30
--- NOTE | 2019-08-16 12:07 | P.PCN ---
Date of Procedure: 08/16/19 Preoperative Diagnosis: Altered mental status, metabolic encephalopathy, sepsis Postoperative Diagnosis: Same Procedure(s) Performed: Triple-lumen catheter insertion Anesthesia: local Surgeon: Hernesto Mukherjee Estimated Blood Loss (ml): 0 Pathology: none sent Condition: critical Disposition: ICU Operative Findings: Indication: Hemodynamic monitoring/Intravenous access. A time-out was completed verifying correct patient, procedure, site, positioning, and implant(s) or special equipment if applicable. The patient was placed in a dependent position appropriate for central line placement based on the vein to be cannulated. The patient's left neck was prepped and draped in sterile fashion. 1% Lidocaine was used to anesthetize the surrounding skin area. A triple lumen 9F Cordis catheter was introduced into the internal jugular vein using Seldinger technique. The catheter was threaded smoothly over the guide wire and appropriate blood return was obtained. Each lumen of the catheter was evacuated of air and flushed with sterile saline. The catheter was then sutured in place to the skin and a sterile dressing applied. Perfusion to the extremity distal to the point of catheter insertion was checked and found to be adequate. The patient tolerated the procedure well and there were no complications.
--- NOTE | 2019-08-16 12:12 | XR ---
EXAMINATION TYPE: XR chest 1V portable DATE OF EXAM: 08/16/2019 HISTORY: central line placement. REFERENCE: Previous study dated 08/16/2019. FINDINGS: A left internal jugular catheter is in place. Its tip is in the superior vena cava. I do no t see evidence of pneumothorax. The lungs are overinflated. The heart is mildly enlarged. There is been partial clearing of the patie nt's left-sided pneumonia. No definite pleural fluid is seen. IMPRESSION: 1. NO POST CATHETER COMPLICATIONS. 2. COPD. 3. CARDIOMEGALY. 4. IMPROVING LEFT-SIDED PNEUMONIA.
[2019-08-16] MEDS: DEXTROSE 5% IN WATER 1,000 ML with SODIUM BICARB (1 MEQ/ML) 150 ML IV SCH ×2 (12:23→17:51)
[2019-08-16] MEDS: HEPARIN SODIUM,PORCINE 5,000 UNIT/ML 1 ML VIAL SQ SCH ×2 (12:23→21:37)
[2019-08-16 17:51] LABS: Glucose,Whole Blood 216 mg/dL (75-99)
[2019-08-16] MEDS: CLINDAMYCIN 600 MG in DEXTROSE 5% IN WATER 50 ML IVPB SCH ×2 (18:35)
[2019-08-16] MEDS: ASPIRIN 81 MG PO SCH (21:25)
[2019-08-16] MEDS: traZODone HCL 50 MG TAB PO SCH (21:25)
[2019-08-16] MEDS: ATORVASTATIN 40 MG TAB PO SCH (21:25)
[2019-08-16 22:52] LABS: ABG Base Excess -1.6 mmol/L; ABG HCO3 23 mmol/L (21-25); ABG Oxygen Saturation 85.3 % (94-97); ABG PCO2 35 mmHg (35-45); ABG PH 7.42 (7.35-7.45); ABG TCO2 24 mmol/L (19-24); Allen Test Performed? Yes
[2019-08-16 22:54] LABS: ABG PO2 51 mmHg (83-108)
[2019-08-16] MEDS ORDERED: FUROSEMIDE 10 MG/ML 2 ML VIAL IV ONE (23:01)
[2019-08-16 23:02] LABS: HCT 25.2 % (34.0-46.0); HGB 7.9 gm/dL (11.4-16.0); Hypochromasia Moderate; MCH 30.5 pg (25.0-35.0); MCHC 31.4 g/dL (31.0-37.0); MCV 97.1 fL (80.0-100.0); Mean Platelet Volume 8.2; Platelet Count 226 k/uL (150-450); RDW 13.6 % (11.5-15.5); WBC 5.4 k/uL (3.8-10.6)
[2019-08-16 23:16] LABS: Calcium 8.6 mg/dL (8.4-10.2); Potassium 4.1 mmol/L (3.5-5.1)
[2019-08-17] LABS: Glucose,Whole Blood 244 mg/dL (75-99)
--- NOTE | 2019-08-17 00:02 | XR ---
EXAMINATION TYPE: XR chest 1V portable DATE OF EXAM: 08/16/2019 COMPARISON: NONE HISTORY: Pneumonia TECHNIQUE: Single view FINDINGS: Heart is normal. There is coarsening of interstitial markings. There is no gross heart fail ure. Thoracic aorta is atheromatous. There is some airspace infiltrate in the left lower lobe behind the heart. IMPRESSION: Coarse lung markings consistent with pulmonary interstitial fibrosis. There is also evidence of some left lower lobe pneumonia. This appears slightly worse than exam this morning.
--- NOTE | 2019-08-17 00:06 | PN ---
PROGRESS NOTE DATE OF SERVICE: 08/16/2019 REASON FOR FOLLOWUP: 1. Left knee infection. 2. Possible aspiration pneumonia. INTERVAL HISTORY: The patient was noticed to be lethargic this morning, not responding. Morphine was discontinued. The patient subsequently has been transferred out of the ICU. X-ray with left lower lobe pneumonia, question of aspiration. The patient remains to be lethargic, however, hemodynamically stable, not requiring any pressor support. No history could be obtained from the patient. No vomiting or any diarrhea has been reported. PHYSICAL EXAMINATION: On examination her blood pressure 123/91 with a pulse of 64, temperature of 97.5. She is 94% on 2 L nasal cannula. General description is an elderly female lying in bed in no distress. RESPIRATORY SYSTEM: Unlabored breathing, decreased breath sounds at the bases. No wheeze. HEART: S1, S2. Regular rate and rhythm. ABDOMEN: Soft, no tenderness. Left knee is currently dressed up. No obvious drainage on the dressing. LABS: Hemoglobin 8.4, white count 5.6, BUN of 57, creatinine 3.04. DIAGNOSTIC IMPRESSION AND PLAN: Patient with left knee chronic infection with recent exacerbation. Culture has been positive for group G strep now with concern for possible aspiration pneumonia. Patient on Cefazolin. Clindamycin will be added to cover for aspiration pneumonitis and will monitor clinical course closely. Continue with supportive care. MMODL / IJN: [id number] /
[2019-08-17] MEDS: SODIUM CHLORIDE 0.9% 1,000 ML IV SCH (00:09)
[2019-08-17] MEDS: INSULIN ASPART (NovoLOG) 100 UNIT/ML VIAL SQ SCH ×4 (00:23→18:18)
[2019-08-17] MEDS: DEXTROSE 5% IN WATER 1,000 ML with SODIUM BICARB (1 MEQ/ML) 150 ML IV SCH (02:14)
[2019-08-17] MEDS: CLINDAMYCIN 600 MG in DEXTROSE 5% IN WATER 50 ML IVPB SCH ×6 (03:47→19:48)
[2019-08-17 04:25] LABS: Albumin 2.8 g/dL (3.5-5.0); Calcium 8.5 mg/dL (8.4-10.2); Total Bilirubin 0.3 mg/dL (0.2-1.3); Total Protein 5.9 g/dL (6.3-8.2)
[2019-08-17 04:56] LABS: Basophils % (A) 0 %; Eosinophils % (A) 0 %; HCT 23.9 % (34.0-46.0); HGB 7.9 gm/dL (11.4-16.0); Hypochromasia Slight; Lymphocytes # (A) 0.8 k/uL (1.0-4.8); Lymphocytes % (A) 14 %; MCH 31.2 pg (25.0-35.0); MCHC 32.9 g/dL (31.0-37.0); MCV 94.9 fL (80.0-100.0); Mean Platelet Volume 8.4; Monocytes # (A) 0.5 k/uL (0-1.0); Monocytes % (A) 8 %; Neutrophils # (A) 4.4 k/uL (1.3-7.7); Neutrophils % (A) 75 %; Platelet Count 229 k/uL (150-450); RBC 2.52 m/uL (3.80-5.40); RDW 13.5 % (11.5-15.5); WBC 5.8 k/uL (3.8-10.6)
[2019-08-17 05:55] LABS: Glucose,Whole Blood 128 mg/dL (75-99)
[2019-08-17] MEDS: CARVEDILOL 12.5 MG TAB PO SCH ×2 (06:34→18:11)
[2019-08-17] MEDS ORDERED: FUROSEMIDE 10 MG/ML 4 ML VIAL IV STA (08:06)
[2019-08-17] MEDS: ASCORBIC ACID 500 MG TAB PO SCH (08:43)
[2019-08-17] MEDS: SERTRALINE 100 MG TAB PO SCH (08:44)
[2019-08-17] MEDS: CHOLECALCIFEROL 1,000 UNIT TAB PO SCH (08:44)
[2019-08-17] MEDS: LOSARTAN 50 MG TAB PO SCH (08:44)
[2019-08-17] MEDS: FAMOTIDINE 20 MG TAB PO SCH (08:44)
[2019-08-17] MEDS: LEVOTHYROXINE 25 MCG TAB PO SCH (08:44)
[2019-08-17] MEDS: HEPARIN SODIUM,PORCINE 5,000 UNIT/ML 1 ML VIAL SQ SCH ×2 (08:47→21:54)
[2019-08-17 10:27] LABS: Magnesium 2.2 mg/dL (1.6-2.3); Phosphorus 3.8 mg/dL (2.5-4.5)
--- NOTE | 2019-08-17 12:06 | P.PN ---
Subjective Progress Note Date: 08/17/19 Principal diagnosis: Septic left knee arthritis. And possible acute community-acquired left lower lobe pneumonia Patient is a very pleasant 74-year-old female who was transferred to the intensive care unit as the patient was found to be quite short of breath and progressively more confused by the primary care physician team. The patient is a very complicated history of a septic joint involving the left knee. The patient was hospitalized for ongoing infection. The patient was being treated with broad-spectrum antibiotics as the patient was found to have a beta hemolytic strep group G from the left knee cultures. Infectious disease was also involved in the case and the patient was covered with appropriate antibiotics. Nevertheless, this morning, the patient was found to be quite restless, lethargic, confused, restless in bed, having tachypnea. At that point, a chest x-ray was done that showed no acute abnormalities. There was some limited infiltration of the left lung base consistent with a left lower lobe pneumonia. The blood work showed an acute on chronic kidney failure with a creatinine being up to 3.04. The patient also developed an anion gap metabolic acidosis. Lactic acid level earlier was nonelevated. A blood gas was done that showed a pH of 7.27 with a pCO2 of 30 and pO2 of 53. White cell count from this morning was 5.6 and hemoglobin was at 8.4. Accordingly, the patient got transferred to the intensive care unit. Noted this blood gases was done and FiO2 of 32%. In terms of her knee, this patient has a extensive history in regards to her left knee. Patient states approximately she began to experience increased pain at the left knee. She denies any injuries. She is unable to flex the left knee, which is chronic following her most recent surgical intervention. Since her admission she has been started on Cefepime. It appears the patient had received 1 dose of vancomycin and 1 dose of Zosyn. Patient states since her ad mission she's had 95% improvement of her left knee pain. Patient is known to have undergone a left total knee arthroplasty on 08/05/[address] Gaspar at [facility]. Post operatively she was readmitted and underwent further surgical intervention for a patellar retinaculum and quadriceps tendon repair performed on 09/09/2017. She was seen and examined by orthopedics on 09/25/2018 and underwent incision and drainage of the left knee performed by Dr. Vincenzo Lara on 09/26/2018. During surgical intervention she was found have significant soft tissue loss which may have required further skin grafting or even muscle flap. Patient was seen by Dr. Hrarison vascular surgery. Patient was transferred for further surgical intervention. Patient subsequently underwent further significant surgery at her left knee in which previous total knee arthroplasty hardware was removed and a femoral tibial david and apparent antibiotic interbody spacer was placed. Patient stated she's had significant difficulty with wound healing since that surgery in the summer. She continued to have an open wound over the left anterior knee which would be superior to the patella. She states she has continued to work with wound care. She feels overall her wound has had significant improvement following surgical intervention in the summer. Previous dictation states the patient's family would like to exhaust conservative treatment options and would like to continue with IV antibiotics while avoiding any surgical intervention. Patient states at the bedside she elected to continue with conservative nonoperative treatments as well. Patient does have a significant medical history which includes smoker, COPD, diabetes mellitus, hyperlipidemia, hypertension, and is currently being treated for urinary tract infection. . Patient was reevaluated today on 08/17/19, remains in the ICU, presently on high flow airvo at 45 L/m, FiO2 of 60%, and her O2 saturation is 97%. Patient is confused I'm history she has some underlying dementia. Patient is on IV fluid at 20 mL per hour, and she is also on bicarb drip which I have discontinued today. Chest x-ray is suspicious for left lower lobe pneumonia, and the patient is on antibiotics for left knee septic arthritis, and presumptive left lower lobe pneumonia secondary to beta streptococcus. And there is also evidence of E. coli urinary tract infection. Antibiotics canchola, the patient is on cefazolin, clindamycin, as per infectious disease on the case. Patient is hemodynamically stable, and I was able to cut down her FiO2 to 40%, and I recommended one dose of Lasix 40 mg IV push to be given 1. IV fluid now is at KVO incentive 1 50 mL per hour. CBC showed WBC count of 5.8 hemoglobin of 7.9. Electrolytes are normal BUN is down to 50 creatinine is a bit higher at 2.70 today Objective - Vital Signs Vital signs: Vital Signs Temp 98.4 F 08/17/19 08:00 Pulse 75 08/17/19 10:00 Resp 8 L 08/17/19 10:00 BP 105/61 08/17/19 10:00 Pulse Ox 97 08/17/19 10:00 Intake & Output 08/16/19 08/17/19 08/17/19 18:59 06:59 18:59 Intake Total 975 2035 190 Output Total 170 555 200 Balance 805 1480 -10 Weight 58.6 kg Intake: IV 1835 190 Clindamycin 600 mg In 50 Dextrose 5% in Water 50 ml @ 50 mls/hr IVPB Q8H [facility] Rx#:[id number] Dextrose 5% in Water 1, 1650 150 000 ml @ 150 mls/hr IV . Q7H40M [facility] with Sodium Bicarb (1 Meq/ml) 150 ml Rx#:[id number] Sodium Chloride 0.9% 1, 85 40 000 ml @ 20 mls/hr IV . Q24H [facility] Rx#:[id number] ceFAZolin 2 gm In Sodium 50 Chloride 0.9% 50 ml @ 100 mls/hr IVPB Q8HR [facility] Rx# :[id number] Intake, IV Titration 975 200 Amount Clindamycin 600 mg In 50 Dextrose 5% in Water 50 ml @ 50 mls/hr IVPB Q8H [facility] Rx#:[id number] Dextrose 5% in Water 1, 975 150 000 ml @ 150 mls/hr IV . Q7H40M [facility] with Sodium Bicarb (1 Meq/ml) 150 ml Rx#:[id number] Output: Urine 170 555 200 Other: Voiding Method Indwelling Catheter Indwelling Catheter Indwelling Catheter - Exam Physical Exam: Revealed a 74-year-old female confused, on high flow O2/airvo Head: Atraumatic, normocephalic. HEENT:[Neck is supple.] [No neck masses.] [No thyromegaly.] [No JVD.] PERRLA, EOMI, no icterus. Chest: Symmetrical chest expansion. [Fine crackles mostly at the left base. No rhonchi and no wheezes. Cardiac Exam: [Normal S1 and S2, no S3 gallop, no murmur.] Abdomen: [Soft, nontender, no megaly, no rebound, no guarding, normal bowel sounds.] Extremities: [No clubbing, no edema, no cyanosis.] Atrophy of muscles and lower extremities bilaterally. There is a surgical wound at the anterior aspect of the left knee with Aquacel and appropriate dressing noted in place. Neurological Exam: Confused, awake, follows simple instructions, but nonverbal. Psychiatric: Blunted mood and affect. Poor mental status. Skin: No rashes. Lymphatics: No lymphadenopathy. - Labs CBC & Chem 7: 08/17/19 04:00 08/17/19 04:00 Labs: Abnormal Lab Results - Last 24 Hours (Table) 08/16/19 08/16/19 08/16/19 Range/Units 17:49 22:44 22:45 RBC 2.60 L (3.80-5.40) m/uL Hgb 7.9 L (11.4-16.0) gm/dL Hct 25.2 L (34.0-46.0) % Lymphocytes # (1.0-4.8) k/uL ABG pO2 51 L* (83-108) mmHg ABG O2 Saturation 85.3 L (94-97) % Chloride (98-107) mmol/L Carbon Dioxide (22-30) mmol/L BUN (7-17) mg/dL Creatinine (0.52-1.04) mg/dL Glucose (74-99) mg/dL POC Glucose (mg/dL) 216 H (75-99) mg/dL Alkaline Phosphatase (38-126) U/L Total Protein (6.3-8.2) g/dL Albumin (3.5-5.0) g/dL 08/16/19 08/16/19 08/17/19 Range/Units 22:45 23:59 04:00 RBC 2.52 L (3.80-5.40) m/uL Hgb 7.9 L (11.4-16.0) gm/dL Hct 23.9 L (34.0-46.0) % Lymphocytes # 0.8 L (1.0-4.8) k/uL ABG pO2 (83-108) mmHg ABG O2 Saturation (94-97) % Chloride 111 H (98-107) mmol/L Carbon Dioxide 20 L (22-30) mmol/L BUN 52 H (7-17) mg/dL Creatinine 2.61 H (0.52-1.04) mg/dL Glucose 217 H (74-99) mg/dL POC Glucose (mg/dL) 244 H (75-99) mg/dL Alkaline Phosphatase (38-126) U/L Total Protein (6.3-8.2) g/dL Albumin (3.5-5.0) g/dL 08/17/19 08/17/19 Range/Units 04:00 05:54 RBC (3.80-5.40) m/uL Hgb (11.4-16.0) gm/dL Hct (34.0-46.0) % Lymphocytes # (1.0-4.8) k/uL ABG pO2 (83-108) mmHg ABG O2 Saturation (94-97) % Chloride 108 H (98-107) mmol/L Carbon Dioxide (22-30) mmol/L BUN 50 H (7-17) mg/dL Creatinine 2.70 H (0.52-1.04) mg/dL Glucose 129 H (74-99) mg/dL POC Glucose (mg/dL) 128 H (75-99) mg/dL Alkaline Phosphatase 265 H (38-126) U/L Total Protein 5.9 L (6.3-8.2) g/dL Albumin 2.8 L (3.5-5.0) g/dL Microbiology - Last 24 Hours (Table) 08/12/19 19:40 Blood Culture - Preliminary Blood No Growth after 96 hours Assessment and Plan Assessment: Impression: Septic left knee joint, secondary to strep group G. Acute metabolic encephalopathy and acute mental status change secondary to sepsis. Suspect left lower lobe pneumonia based on chest x-ray, this is most likely streptococcal pneumonia on Zestril otherwise. Acute on chronic kidney disease. Acute hypoxic respiratory failure secondary to left lower lobe pneumonia and underlying COPD Type 2 diabetes. Benign essential hypertension. Chronic kidney disease stage IV E. coli urinary tract infection/acute. Recommendation: Continue antibiotics as per infectious disease. Patient is on cefazolin and on clindamycin. Discontinue sodium bicarb, and cut down her IV fluid rate. Continue to monitor renal profile. Titrate FiO2 down on the high flow airvo, I cut it down to FiO2 of 40%. Infectious disease and orthopedics to continue to follow. Consider transferring the patient to a regular medical floor today or in the pa xt 24 hours. We'll continue to follow. Prognosis is definitely guarded. Time with Patient: Less than 30
[2019-08-17 12:09] LABS: Glucose,Whole Blood 136 mg/dL (75-99)
--- NOTE | 2019-08-17 12:31 | P.PN ---
Subjective Progress Note Date: 08/17/19 This is a 74-year-old female patient of Dr. Frazier with past history for COPD, diabetes mellitus type 2 insulin requiring, hypertension, hyperlipidemia, generalized osteoarthritis, generalized anxiety disorder, AAA. Patient has history of osteoarthritis and under the care of Dr. Lara status post left total knee arthroplasty last July. Subsequently, she was readmitted and underwent patellar retinaculum and quadriceps tendon repair. She was readmitted in September for surgical wound ulceration eschar with flap necrosis and underwent I&D was follow-up with Dr. Martinez. Patient presented to the emergency department with chief complaint of left knee pain worsening over the last 2 days, patient arrived via EMS with temperature of 100.0 left knee with hardware visible with purulent drainage noted. Patient received a dose of Zosyn and Vanco in the emergency room and is now on Cefepime IV. We will continue IV hydration. Consults for Dr. Amaya and Dr. Lara are in place. Blood urine and wound cultures have been done. Patient does have history of Pseudomonas and left knee in October. Patient will be admitted to the hospital. 08/13: Patient found this morning with a team called, patient was restless in bed. Blood sugar was 57 and amp of dextrose was given. D5 0.9 IV fluids sta rted. Will attempt to better control pain with Dilaudid and [place] when necessary. 1 dose of Valium given. Labs were reviewed hemoglobin 9.3 BUN 54 creatinine 2.61 lactic acid 2.9, ESR 116. Vital signs are stable, patient remains afebrile blood pressure 143/63 heart rate 66 pulse ox 93% on room air. We will consult Dr. Harrison for evaluation of left knee. Patient is known to him in the past. Orthopedics plan to exhaust conservative treatment options at this time per family request, there are not any indications for surgical irrigation and debridement at this time. Wound care is currently following patient. 08/14: Patient is doing better this morning seen awake and alert eating [facility] st. Left knee culture was positive for beta hemolytic strep group G and followed by Dr. Amaya at this point. Remains on IV Cefepime. Had discussion with daughter Bria plan for IV antibiotics and conservative measures at this time. No invasive procedures, we will do trial of IV antibiotics as outpatient, daughter wants patient to return home. She is a nurse and is able to care for her. Vital signs remained stable, patient is afebrile, heart rate 67 blood pressure 93/43 pulse ox 94% on room air. Acute on chronic renal failure BUN was 61 creatinine was 2.99 this morning hemoglobin stable at 8.9 liver enzymes trending down AST 49 ALTs 49. 08/15: Patient seen this morning lying in bed. She appears to be short of breath and more confused. We will discontinue morphine IV, and give patient 1 dose 40 mg IV Lasix. Vital signs have been stable, she is afebrile, heart also 82, pressure 127/61, pulse ox 97% on room air. Labs were reviewed, hemoglobin 8.4, sodium 142, potassium 5.2, chloride 118, CO2 15, BUN 57, creatinine 3.04 for enzymes are trending down AST is 38 ALTs 38. Plan for no invasive procedures of left knee continue with IV antibiotics daughter has expressed she does not want any surgeries at this time. Urine cultures were positive for E. coli patient's currently cefazolin. Will repeat labs in the morning. 08/16: Patient is laying down in bed does not appear to be in acute distress she continues to be on airflow, she appears to be not following commands, she a ppears congested and oriented and she was taken off her IV fluid and she did receive a dose of Lasix, she continues to be on IV antibiotic in the form of cefepime and clindamycin, and infectious disease are following as well as vascular surgery, patient didn't her daughter has refused any amputation even though he was recommended by vascular surgery. Objective - Vital Signs Vital signs: Vital Signs Temp 99.0 F 08/17/19 04:00 Pulse 68 08/17/19 06:00 Resp 9 L 08/17/19 06:00 BP 118/67 08/17/19 05:00 Pulse Ox 98 08/17/19 06:00 Intake & Output 08/16/19 08/16/19 08/17/19 06:59 18:59 06:59 Intake Total 001 912 2379 Output Total 170 555 Balance 315 731 7514 Weight 58.6 kg Intake: IV 1835 Clindamycin 600 mg In 50 Dextrose 5% in Water 50 ml @ 50 mls/hr IVPB Q8H [facility] Rx#:[id number] Dextrose 5% in Water 1, 1650 000 ml @ 150 mls/hr IV . Q7H40M [facility] with Sodium Bicarb (1 Meq/ml) 150 ml Rx#:[id number] Sodium Chloride 0.9% 1, 85 000 ml @ 20 mls/hr IV . Q24H [facility] Rx#:[id number] ceFAZolin 2 gm In Sodium 50 Chloride 0.9% 50 ml @ 100 mls/hr IVPB Q8HR [facility] Rx# :[id number] Intake, IV Titration 975 200 Amount Clindamycin 600 mg In 50 Dextrose 5% in Water 50 ml @ 50 mls/hr IVPB Q8H [facility] Rx#:[id number] Dextrose 5% in Water 1, 975 150 000 ml @ 150 mls/hr IV . Q7H40M [facility] with Sodium Bicarb (1 Meq/ml) 150 ml Rx#:[id number] Oral 200 Output: Urine 170 555 Other: Voiding Method Toilet Indwelling Catheter Indwelling Catheter # Voids 1 - Exam - Exam Constitutional: Patient appeared confused and older than stated age. Ears, nose, mouth and throat: Does not follow much commands. Cardiovascular: Does not much commands . Respiratory: Does not much commands Gastrointestinal:Does not much commands Genitourinary: Does not much commands Musculoskeletal: Does not much commands Musculoskeletal: left: knee pain, pain has improved and drainage has decreased Integumentary: Does not much commands Neurological: Does not much commands Psychiatric: Does not much commands Endocrine: Does not much commands Physical exam: Gen: This is a 74-year-old female. Patient appears short of breath. HEENT: Head is atraumatic, normocephalic. Pupils equal, round. Sclerae is anicteric. NECK: Supple. No JVD. No lymphadenopathy. No thyromegaly. LUNGS: Lung sounds diminished, with fine crackles. No wheezes or rhonchi. No intercostal retractions. HEART: Regular rate and rhythm. Grade 2 systolic murmur ABDOMEN: Soft. Bowel sounds are present. No masses. No tenderness. EXTREMITIES: No pedal edema. No calf tenderness. Left knee dressing intact minimal purulent drainage today NEUROLOGICAL: Patient is confused. Cranial nerves 2 through 12 are grossly intact poor historian. - Labs CBC & Chem 7: 08/17/19 04:00 08/17/19 04:00 Labs: Abnormal Lab Results - Last 24 Hours (Table) 08/16/19 08/16/19 08/16/19 Range/Units 07:05 07:05 09:15 RBC 2.72 L (3.80-5.40) m/uL Hgb 8.4 L (11.4-16.0) gm/dL Hct 27.1 L (34.0-46.0) % MCHC 30.9 L (31.0-37.0) g/dL Lymphocytes # (1.0-4.8) k/uL ABG pH (7.35-7.45) ABG pCO2 (35-45) mmHg ABG pO2 (83-108) mmHg ABG HCO3 (21-25) mmol/L ABG Total CO2 (19-24) mmol/L ABG O2 Saturation (94-97) % Potassium 5.2 H (3.5-5.1) mmol/L Chloride 118 H (98-107) mmol/L Carbon Dioxide 15 L (22-30) mmol/L BUN 57 H (7-17) mg/dL Creatinine 3.04 H (0.52-1.04) mg/dL Glucose (74-99) mg/dL POC Glucose (mg/dL) 130 H (75-99) mg/dL AST 38 H (14-36) U/L ALT 38 H (4-34) U/L Alkaline Phosphatase 298 H (38-126) U/L Total Protein 6.2 L (6.3-8.2) g/dL Albumin 2.9 L (3.5-5.0) g/dL 08/16/19 08/16/19 08/16/19 Range/Units 10:01 10:36 17:49 RBC (3.80-5.40) m/uL Hgb (11.4-16.0) gm/dL Hct (34.0-46.0) % MCHC (31.0-37.0) g/dL Lymphocytes # (1.0-4.8) k/uL ABG pH 7.27 L (7.35-7.45) ABG pCO2 30 L (35-45) mmHg ABG pO2 53 L* (83-108) mmHg ABG HCO3 14 L (21-25) mmol/L ABG Total CO2 15 L (19-24) mmol/L ABG O2 Saturation 85.9 L (94-97) % Potassium (3.5-5.1) mmol/L Chloride (98-107) mmol/L Carbon Dioxide (22-30) mmol/L BUN (7-17) mg/dL Creatinine (0.52-1.04) mg/dL Glucose (74-99) mg/dL POC Glucose (mg/dL) 139 H 216 H (75-99) mg/dL AST (14-36) U/L ALT (4-34) U/L Alkaline Phosphatase (38-126) U/L Total Protein (6.3-8.2) g/dL Albumin (3.5-5.0) g/dL 08/16/19 08/16/19 08/16/19 Range/Units 22:44 22:45 22:45 RBC 2.60 L (3.80-5.40) m/uL Hgb 7.9 L (11.4-16.0) gm/dL Hct 25.2 L (34.0-46.0) % MCHC (31.0-37.0) g/dL Lymphocytes # (1.0-4.8) k/uL ABG pH (7.35-7.45) ABG pCO2 (35-45) mmHg ABG pO2 51 L* (83-108) mmHg ABG HCO3 (21-25) mmol/L ABG Total CO2 (19-24) mmol/L ABG O2 Saturation 85.3 L (94-97) % Potassium (3.5-5.1) mmol/L Chloride 111 H (98-107) mmol/L Carbon Dioxide 20 L (22-30) mmol/L BUN 52 H (7-17) mg/dL Creatinine 2.61 H (0.52-1.04) mg/dL Glucose 217 H (74-99) mg/dL POC Glucose (mg/dL) (75-99) mg/dL AST (14-36) U/L ALT (4-34) U/L Alkaline Phosphatase (38-126) U/L Total Protein (6.3-8.2) g/dL Albumin (3.5-5.0) g/dL 08/16/19 08/17/19 08/17/19 Range/Units 23:59 04:00 04:00 RBC 2.52 L (3.80-5.40) m/uL Hgb 7.9 L (11.4-16.0) gm/dL Hct 23.9 L (34.0-46.0) % MCHC (31.0-37.0) g/dL Lymphocytes # 0.8 L (1.0-4.8) k/uL ABG pH (7.35-7.45) ABG pCO2 (35-45) mmHg ABG pO2 (83-108) mmHg ABG HCO3 (21-25) mmol/L ABG Total CO2 (19-24) mmol/L ABG O2 Saturation (94-97) % Potassium (3.5-5.1) mmol/L Chloride 108 H (98-107) mmol/L Carbon Dioxide (22-30) mmol/L BUN 50 H (7-17) mg/dL Creatinine 2.70 H (0.52-1.04) mg/dL Glucose 129 H (74-99) mg/dL POC Glucose (mg/dL) 244 H (75-99) mg/dL AST (14-36) U/L ALT (4-34) U/L Alkaline Phosphatase 265 H (38-126) U/L Total Protein 5.9 L (6.3-8.2) g/dL Albumin 2.8 L (3.5-5.0) g/dL 08/17/19 Range/Units 05:54 RBC (3.80-5.40) m/uL Hgb (11.4-16.0) gm/dL Hct (34.0-46.0) % MCHC (31.0-37.0) g/dL Lymphocytes # (1.0-4.8) k/uL ABG pH (7.35-7.45) ABG pCO2 (35-45) mmHg ABG pO2 (83-108) mmHg ABG HCO3 (21-25) mmol/L ABG Total CO2 (19-24) mmol/L ABG O2 Saturation (94-97) % Potassium (3.5-5.1) mmol/L Chloride (98-107) mmol/L Carbon Dioxide (22-30) mmol/L BUN (7-17) mg/dL Creatinine (0.52-1.04) mg/dL Glucose (74-99) mg/dL POC Glucose (mg/dL) 128 H (75-99) mg/dL AST (14-36) U/L ALT (4-34) U/L Alkaline Phosphatase (38-126) U/L Total Protein (6.3-8.2) g/dL Albumin (3.5-5.0) g/dL Microbiology - Last 24 Hours (Table) 08/12/19 19:40 Blood Culture - Preliminary Blood No Growth after 96 hours Assessment and Plan Assessment: Assessment and Plan Plan: 1. Septic left knee arthroplasty. Blood urine and wound Cultures have been obtained ID and Ortho are on the case. Switch to cefazolin. Left knee wound cultures show beta hemolytic strep group B followed by Dr. Reddy. Spoke with daughter Bria plan for conservative measurements with outpatient IV antibiotics at this time 2. Diabetes mellitus type 2, stable sliding scale with meals 3. Hypertension. Continue Coreg 25 mg twice daily, losartan 50 mg daily. 4. Hyperlipidemia. Continue atorvastatin. 5. Generalized anxiety disorder. Continue Xanax or 0.25 mg every 8 hours as needed. 6. History of bowel resection, stable. 7. Tobacco use and dependence. Recommended nicotine patch 8. DVT prophylaxis. Heparin SC 9. GI prophylaxis. we will continue with PPI. 10. Acute pain. Improved Dilaudid and [place] when necessary. Morphine was discontinued. 11. Lactic acidosis. resolved and was taken off Bicarbonate drip. 12. Stage V chronic kidney disease with acute tubular necrosis. will continue to monitor, repeat labs in the morning.
--- NOTE | 2019-08-17 13:06 | P.PN ---
Subjective Progress Note Date: 08/17/19 This is a 74-year-old female patient of Dr. Frazier with past history for COPD, diabetes mellitus type 2 insulin requiring, hypertension, hyperlipidemia, generalized osteoarthritis, generalized anxiety disorder, AAA. Patient has history of osteoarthritis and under the care of Dr. Lara status post left total knee arthroplasty last July. Subsequently, she was readmitted and underwent patellar retinaculum and quadriceps tendon repair. She was readmitted in September for surgical wound ulceration eschar with flap necrosis and underwent I&D was follow-up with Dr. Martinez. Patient presented to the emergency department with chief complaint of left knee pain worsening over the last 2 days, patient arrived via EMS with temperature of 100.0 left knee with hardware visible with purulent drainage noted. Patient received a dose of Zosyn and Vanco in the emergency room and is now on Cefepime IV. We will continue IV hydration. Consults for Dr. Amaya and Dr. Lara are in place. Blood urine and wound cultures have been done. Patient does have history of Pseudomonas and left knee in October. Patient will be admitted to the hospital. 08/13: Patient found this morning with a team called, patient was restless in bed. Blood sugar was 57 and amp of dextrose was given. D5 0.9 IV fluids sta rted. Will attempt to better control pain with Dilaudid and Bath when necessary. 1 dose of Valium given. Labs were reviewed hemoglobin 9.3 BUN 54 creatinine 2.61 lactic acid 2.9, ESR 116. Vital signs are stable, patient remains afebrile blood pressure 143/63 heart rate 66 pulse ox 93% on room air. We will consult Dr. Harrison for evaluation of left knee. Patient is known to him in the past. Orthopedics plan to exhaust conservative treatment options at this time per family request, there are not any indications for surgical irrigation and debridement at this time. Wound care is currently following patient. 08/14: Patient is doing better this morning seen awake and alert eating [facility] st. Left knee culture was positive for beta hemolytic strep group G and followed by Dr. Amaya at this point. Remains on IV Cefepime. Had discussion with daughter Bria plan for IV antibiotics and conservative measures at this time. No invasive procedures, we will do trial of IV antibiotics as outpatient, daughter wants patient to return home. She is a nurse and is able to care for her. Vital signs remained stable, patient is afebrile, heart rate 67 blood pressure 93/43 pulse ox 94% on room air. Acute on chronic renal failure BUN was 61 creatinine was 2.99 this morning hemoglobin stable at 8.9 liver enzymes trending down AST 49 ALTs 49. 08/15: Patient seen this morning lying in bed. She appears to be short of breath and more confused. We will discontinue morphine IV, and give patient 1 dose 40 mg IV Lasix. Vital signs have been stable, she is afebrile, heart also 82, pressure 127/61, pulse ox 97% on room air. Labs were reviewed, hemoglobin 8.4, sodium 142, potassium 5.2, chloride 118, CO2 15, BUN 57, creatinine 3.04 for enzymes are trending down AST is 38 ALTs 38. Plan for no invasive procedures of left knee continue with IV antibiotics daughter has expressed she does not want any surgeries at this time. Urine cultures were positive for E. coli patient's currently cefazolin. Will repeat labs in the morning. 08/16: Patient is laying down in bed does not appear to be in acute distress she continues to be on airflow, she appears to be not following commands, she a ppears congested and oriented and she was taken off her IV fluid and she did receive a dose of Lasix, she continues to be on IV antibiotic in the form of cefepime and clindamycin, and infectious disease are following as well as vascular surgery, patient and her daughter have refused any amputation even though recommended by vascular surgery.patient has been afebrile, heart rate 75, blood pressure 105/61, pulse ox is 97% on Airvo at FiO2 of 60%.hemoglobin stable at 7.9, normal white count. BUN 15 creatinine 2.7. Blood sugars have been running between 129 and 244. patient continued on NovoLog scale. Alkaline phosphatase 265. Objective - Vital Signs Vital signs: Vital Signs Temp 98.4 F 08/17/19 08:00 Pulse 75 08/17/19 10:00 Resp 8 L 08/17/19 10:00 BP 105/61 08/17/19 10:00 Pulse Ox 97 08/17/19 10:00 Intake & Output 08/16/19 08/17/19 08/17/19 18:59 06:59 18:59 Intake Total 975 2035 190 Output Total 170 555 200 Balance 805 1480 -10 Weight 58.6 kg Intake: IV 1835 190 Clindamycin 600 mg In 50 Dextrose 5% in Water 50 ml @ 50 mls/hr IVPB Q8H [facility] Rx#:[id number] Dextrose 5% in Water 1, 1650 150 000 ml @ 150 mls/hr IV . Q7H40M [facility] with Sodium Bicarb (1 Meq/ml) 150 ml Rx#:[id number] Sodium Chloride 0.9% 1, 85 40 000 ml @ 20 mls/hr IV . Q24H [facility] Rx#:[id number] ceFAZolin 2 gm In Sodium 50 Chloride 0.9% 50 ml @ 100 mls/hr IVPB Q8HR [facility] Rx# :[id number] Intake, IV Titration 975 200 Amount Clindamycin 600 mg In 50 Dextrose 5% in Water 50 ml @ 50 mls/hr IVPB Q8H [facility] Rx#:[id number] Dextrose 5% in Water 1, 975 150 000 ml @ 150 mls/hr IV . Q7H40M [facility] with Sodium Bicarb (1 Meq/ml) 150 ml Rx#:[id number] Output: Urine 170 555 200 Other: Voiding Method Indwelling Catheter Indwelling Catheter Indwelling Catheter - Exam Constitutional: Patient appeared confused and older than stated age. Ears, nose, mouth and throat: Does not follow much commands. Cardiovascular: Does not much commands . Respiratory: Does not much commands Gastrointestinal:Does not much commands Genitourinary: Does not much commands Musculoskeletal: Does not much commands Musculoskeletal: left: knee pain, pain has improved and drainage has decreased Integumentary: Does not much commands Neurological: Does not much commands Psychiatric: Does not much commands Endocrine: Does not much commands Physical exam: Gen: This is a 74-year-old female. Patient appears short of breath. HEENT: Head is atraumatic, normocephalic. Pupils equal, round. Sclerae is anicteric. NECK: Supple. No JVD. No lymphadenopathy. No thyromegaly. LUNGS: Lung sounds diminished, with fine crackles. No wheezes or rhonchi. No intercostal retractions. HEART: Regular rate and rhythm. Grade 2 systolic murmur ABDOMEN: Soft. Bowel sounds are present. No masses. No tenderness. EXTREMITIES: No pedal edema. No calf tenderness. Left knee dressing intact minimal purulent drainage today NEUROLOGICAL: Patient is confused. patient unable to follow commands. - Labs CBC & Chem 7: 08/17/19 04:00 08/17/19 04:00 Labs: Abnormal Lab Results - Last 24 Hours (Table) 08/16/19 08/16/19 08/16/19 Range/Units 17:49 22:44 22:45 RBC 2.60 L (3.80-5.40) m/uL Hgb 7.9 L (11.4-16.0) gm/dL Hct 25.2 L (34.0-46.0) % Lymphocytes # (1.0-4.8) k/uL ABG pO2 51 L* (83-108) mmHg ABG O2 Saturation 85.3 L (94-97) % Chloride (98-107) mmol/L Carbon Dioxide (22-30) mmol/L BUN (7-17) mg/dL Creatinine (0.52-1.04) mg/dL Glucose (74-99) mg/dL POC Glucose (mg/dL) 216 H (75-99) mg/dL Alkaline Phosphatase (38-126) U/L Total Protein (6.3-8.2) g/dL Albumin (3.5-5.0) g/dL 08/16/19 08/16/19 08/17/19 Range/Units 22:45 23:59 04:00 RBC 2.52 L (3.80-5.40) m/uL Hgb 7.9 L (11.4-16.0) gm/dL Hct 23.9 L (34.0-46.0) % Lymphocytes # 0.8 L (1.0-4.8) k/uL ABG pO2 (83-108) mmHg ABG O2 Saturation (94-97) % Chloride 111 H (98-107) mmol/L Carbon Dioxide 20 L (22-30) mmol/L BUN 52 H (7-17) mg/dL Creatinine 2.61 H (0.52-1.04) mg/dL Glucose 217 H (74-99) mg/dL POC Glucose (mg/dL) 244 H (75-99) mg/dL Alkaline Phosphatase (38-126) U/L Total Protein (6.3-8.2) g/dL Albumin (3.5-5.0) g/dL 08/17/19 08/17/19 08/17/19 Range/Units 04:00 05:54 11:58 RBC (3.80-5.40) m/uL Hgb (11.4-16.0) gm/dL Hct (34.0-46.0) % Lymphocytes # (1.0-4.8) k/uL ABG pO2 (83-108) mmHg ABG O2 Saturation (94-97) % Chloride 108 H (98-107) mmol/L Carbon Dioxide (22-30) mmol/L BUN 50 H (7-17) mg/dL Creatinine 2.70 H (0.52-1.04) mg/dL Glucose 129 H (74-99) mg/dL POC Glucose (mg/dL) 128 H 136 H (75-99) mg/dL Alkaline Phosphatase 265 H (38-126) U/L Total Protein 5.9 L (6.3-8.2) g/dL Albumin 2.8 L (3.5-5.0) g/dL Microbiology - Last 24 Hours (Table) 08/12/19 19:40 Blood Culture - Preliminary Blood No Growth after 96 hours Assessment and Plan Plan: 1. Septic left knee arthroplasty. Blood urine and wound Cultures have been obtained ID and Ortho are on the case. Switch to cefazolinand clindamycin. Left knee wound cultures show beta hemolytic strep group B followed by Dr. Amaya. Spoke with daughter Bria plan for conservative measurements with outpatient IV antibiotics at this time. Wound care consult and consult with Dr. Harrison appreciated. 2. Acute septic metabolic encephalopathy. continue current treatment. Patient to remain in ICU one more day. 3. Possible left lower lobe pneumonia. Continue antibiotics. Consult with Dr. Orellana appreciated. 4. Acute hypoxic respiratory failure. Patient currently on Airvo. 5. Acute E. coli UTI, present on admission. Continue antibiotics. 6. Diabetes mellitus type 2, stable sliding scale with meals 7. Hypertension. Continue Coreg 25 mg twice daily, losartan 50 mg daily. 8. Hyperlipidemia. Continue atorvastatin. 9. Generalized anxiety disorder. Continue Xanax or 0.25 mg every 8 hours as needed. 10. History of bowel resection, stable. 11. Tobacco use and dependence. Recommended nicotine patch 12. DVT prophylaxis. Heparin SC 13. GI prophylaxis. we will continue with PPI. 14. Acute pain. Improved Dilaudid and Bath when necessary. Morphine was d iscontinued. 15. Lactic acidosis. resolved and was taken off Bicarbonate drip. 16. Stage V chronic kidney disease with acute tubular necrosis. will continue to monitor, repeat labs in the morning. Prognosis guarded. Impression and plan of care have been directed as dictated by the signing bib sician. Annie Ba nurse practitioner acting as scribe for signing physician.
--- NOTE | 2019-08-17 15:53 | CDI ---
Documentation Clarification Form Date: 08/17/2019 03:17:28 PM From: Meli Ortiz RN, CCDS Admit Date: 08/12/2019 11:12:00 PM Patient Name: Glenny Rodriguez Visit Number: [id number] Discharge Date: ATTENTION: The Clinical Documentation Specialists (CDI) and [facility] Coding Staff appreciate your assistance in clarifying documentation. Please respond to the clarification below the line at the bottom and electronically sign. The CDI & [facility] Coding staff will review the response and follow-up if needed. Please note: Queries are made part of the Legal Health Record. If you have any questions, please contact the author of this message via ITS. Dr. Tommie Block 08/11 in ER She denies any history of sick contact including exposure to COVID is documented in the ER initial comments. 08/11 COVID-19 not detected per serology and must be confirmed by the attending. Patient history/risk factors: COPD, diabetes mellitus, Pneumonia, former smoker Clinical Indicators: 74-year-old with history of left knee arthroplathy, nonhealing wound to the left knee area since, present to ER 08/11 with complaints of left knee was becoming more swollen and painful. In ER patient did have a low-grade fever of 100 degrees Fahrenheit. Lab and serology was obtained. 08/11 CXR: Chronic changes without evidence for acute pulmonary disease 07/11 Labs: WBC 10.6 HGB 10.4, CHT 32.5, Neutrophils 9.5, BUN 48, CR 2.38 Lactic acid 1.3, Alkaline Phosphatase 297, LDH 646, C-reactive protein 230.3, Procalcitonin 0.20 08/11@ 19:40 Viral Panel: Coronavirus Not Detected 08/11l Signs: 146/81 86 18 100.0 06 % RA Treatment: Cefepime 2 gm IV q 12 Local wound care to continue, currently dry dressing .9 Saline 500 ml bolus Clindamycin 600 mg Iv q8 Vancomycin 1000mg IV X1 In order to capture the severity of condition, please clarify if the above treatment/clinical indicators signify: X COVID-19 ruled out COVID-19 confirmed Other, please specify Unable to determine (Last Form Revision: June 2019) MTDD
[2019-08-17 18:21] LABS: Glucose,Whole Blood 148 mg/dL (75-99)
--- NOTE | 2019-08-17 18:56 | PN ---
PROGRESS NOTE DATE OF SERVICE: 08/17/2019 REASON FOR FOLLOWUP: Left knee infection. INTERVAL HISTORY: The patient is currently afebrile. The patient remains to be remains pleasantly confused, unable to provide any history. No vomiting or diarrhea or any other changes reported by the nursing staff. PHYSICAL EXAMINATION: Blood pressure 130/61 with a pulse of 78, temperature 98.5. She is 95% on high-flow oxygen. General description is an elderly female up in the bed in no distress. RESPIRATORY SYSTEM: Unlabored breathing. Clear to auscultation anteriorly. HEART: S1, S2. Regular rate and rhythm. ABDOMEN: Soft. No tenderness. Left knee is currently dressed up. No obvious drainage on the dressing. LABS: Hemoglobin 7.9, white count of 5.8. BUN of 50, creatinine 2.70. DIAGNOSTIC IMPRESSION AND PLAN: Patient with left knee septic arthritis, chronic. Cultures now showing a group G strep with concern about possible aspiration pneumonitis. Patient is covered with cefazolin and clindamycin; to continue and monitor clinical course closely. MMODL / IJN: [id number] /
[2019-08-17] MEDS: ASPIRIN 81 MG PO SCH (21:50)
[2019-08-17] MEDS: ATORVASTATIN 40 MG TAB PO SCH (21:50)
[2019-08-17] MEDS: traZODone HCL 50 MG TAB PO SCH (21:50)
[2019-08-17] MEDS: HYDROmorphone 1 MG/ML 1 ML SYRINGE IVP PRN (22:16)
[2019-08-18] MEDS: INSULIN ASPART (NovoLOG) 100 UNIT/ML VIAL SQ SCH ×5 (04:27→20:23)
[2019-08-18 04:32] LABS: Glucose,Whole Blood 120 mg/dL (75-99)
[2019-08-18] MEDS: SODIUM CHLORIDE 0.9% 1,000 ML IV SCH ×2 (04:33→23:54)
[2019-08-18] MEDS: CLINDAMYCIN 600 MG in DEXTROSE 5% IN WATER 50 ML IVPB SCH ×6 (04:33→18:01)
[2019-08-18 05:03] LABS: HCT 22.5 % (34.0-46.0); HGB 7.1 gm/dL (11.4-16.0); Hypochromasia Slight; MCH 30.3 pg (25.0-35.0); MCHC 31.6 g/dL (31.0-37.0); MCV 95.9 fL (80.0-100.0); Mean Platelet Volume 8.5; Platelet Count 199 k/uL (150-450); RBC 2.35 m/uL (3.80-5.40); RDW 13.8 % (11.5-15.5); WBC 4.4 k/uL (3.8-10.6)
--- NOTE | 2019-08-18 07:56 | XR ---
EXAMINATION TYPE: XR chest 1V portable DATE OF EXAM: 08/18/2019 Comparison: 08/16/2019 Clinical History: 74-year-old female CHF, pneumonia Findings: Left IJ CVC tip at the cavoatrial junction. Heart order line in size. Diffuse interstitial density. S ome patchy retrocardiac opacity persists. Mild hyperinflation. Impression: Stable interstitial change, possible underlying COPD. Retrocardiac/left basilar infiltrate remains.
[2019-08-18] MEDS ORDERED: FUROSEMIDE 10 MG/ML 4 ML VIAL IV STA (07:59)
[2019-08-18] MEDS ORDERED: IPRATROPIUM-ALBUTEROL 3 ML NEB INHALATION PRN (08:00)
[2019-08-18] MEDS ORDERED: IPRATROPIUM-ALBUTEROL 3 ML NEB INHALATION SCH (08:00)
[2019-08-18 08:44] VITALS: BMI 21.9
[2019-08-18] MEDS ORDERED: ALBUTEROL HFA INHALER INHALATION PRN (08:47)
[2019-08-18 09:31] LABS: Calcium 8.6 mg/dL (8.4-10.2); Phosphorus 3.7 mg/dL (2.5-4.5); Potassium 3.3 mmol/L (3.5-5.1)
[2019-08-18] MEDS: TIOTROPIUM 18 MCG/PUFF INHALER INHALATION SCH (09:33)
[2019-08-18] MEDS ORDERED: Potassium Replacement Protocol 1 EACH MISC MISCELLANE PRN (09:40)
[2019-08-18] MEDS: SERTRALINE 100 MG TAB PO SCH (09:47)
[2019-08-18] MEDS: HEPARIN SODIUM,PORCINE 5,000 UNIT/ML 1 ML VIAL SQ SCH ×2 (09:47→20:23)
[2019-08-18] MEDS: LEVOTHYROXINE 25 MCG TAB PO SCH (09:47)
[2019-08-18] MEDS: FAMOTIDINE 20 MG TAB PO SCH (09:47)
[2019-08-18] MEDS: LOSARTAN 50 MG TAB PO SCH (09:47)
[2019-08-18] MEDS: CHOLECALCIFEROL 1,000 UNIT TAB PO SCH (09:47)
[2019-08-18] MEDS: CARVEDILOL 12.5 MG TAB PO SCH ×2 (09:49→16:53)
--- NOTE | 2019-08-18 11:07 | P.PN ---
Subjective Progress Note Date: 08/18/19 Principal diagnosis: Septic left knee arthritis. And possible acute community-acquired left lower lobe pneumonia Patient is a very pleasant 74-year-old female who was transferred to the intensive care unit as the patient was found to be quite short of breath and progressively more confused by the primary care physician team. The patient is a very complicated history of a septic joint involving the left knee. The patient was hospitalized for ongoing infection. The patient was being treated with broad-spectrum antibiotics as the patient was found to have a beta hemolytic strep group G from the left knee cultures. Infectious disease was also involved in the case and the patient was covered with appropriate antibiotics. Nevertheless, this morning, the patient was found to be quite restless, lethargic, confused, restless in bed, having tachypnea. At that point, a chest x-ray was done that showed no acute abnormalities. There was some limited infiltration of the left lung base consistent with a left lower lobe pneumonia. The blood work showed an acute on chronic kidney failure with a creatinine being up to 3.04. The patient also developed an anion gap metabolic acidosis. Lactic acid level earlier was nonelevated. A blood gas was done that showed a pH of 7.27 with a pCO2 of 30 and pO2 of 53. White cell count from this morning was 5.6 and hemoglobin was at 8.4. Accordingly, the patient got transferred to the intensive care unit. Noted this blood gases was done and FiO2 of 32%. In terms of her knee, this patient has a extensive history in regards to her left knee. Patient states approximately she began to experience increased pain at the left knee. She denies any injuries. She is unable to flex the left knee, which is chronic following her most recent surgical intervention. Since her admission she has been started on Cefepime. It appears the patient had received 1 dose of vancomycin and 1 dose of Zosyn. Patient states since her ad mission she's had 95% improvement of her left knee pain. Patient is known to have undergone a left total knee arthroplasty on 08/05/[address] Gaspar at [facility]. Post operatively she was readmitted and underwent further surgical intervention for a patellar retinaculum and quadriceps tendon repair performed on 09/09/2017. She was seen and examined by orthopedics on 09/25/2018 and underwent incision and drainage of the left knee performed by Dr. Vincenzo Lara on 09/26/2018. During surgical intervention she was found have significant soft tissue loss which may have required further skin grafting or even muscle flap. Patient was seen by Dr. Harrison vascular surgery. Patient was transferred for further surgical intervention. Patient subsequently underwent further significant surgery at her left knee in which previous total knee arthroplasty hardware was removed and a femoral tibial david and apparent antibiotic interbody spacer was placed. Patient stated she's had significant difficulty with wound healing since that surgery in the summer. She continued to have an open wound over the left anterior knee which would be superior to the patella. She states she has continued to work with wound care. She feels overall her wound has had significant improvement following surgical intervention in the summer. Previous dictation states the patient's family would like to exhaust conservative treatment options and would like to continue with IV antibiotics while avoiding any surgical intervention. Patient states at the bedside she elected to continue with conservative nonoperative treatments as well. Patient does have a significant medical history which includes smoker, COPD, diabetes mellitus, hyperlipidemia, hypertension, and is currently being treated for urinary tract infection. . Patient was reevaluated today on 08/17/19, remains in the ICU, presently on high flow airvo at 45 L/m, FiO2 of 60%, and her O2 saturation is 97%. Patient is confused I'm history she has some underlying dementia. Patient is on IV fluid at 20 mL per hour, and she is also on bicarb drip which I have discontinued today. Chest x-ray is suspicious for left lower lobe pneumonia, and the patient is on antibiotics for left knee septic arthritis, and presumptive left lower lobe pneumonia secondary to beta streptococcus. And there is also evidence of E. coli urinary tract infection. Antibiotics canchola, the patient is on cefazolin, clindamycin, as per infectious disease on the case. Patient is hemodynamically stable, and I was able to cut down her FiO2 to 40%, and I recommended one dose of Lasix 40 mg IV push to be given 1. IV fluid now is at KVO incentive 1 50 mL per hour. CBC showed WBC count of 5.8 hemoglobin of 7.9. Electrolytes are normal BUN is down to 50 creatinine is a bit higher at 2.70 today Reevaluated today on 08/18/19, patient remains in the intensive care unit, presently on high flow oxygen utilizing airvo with FiO2 of 45%. And 40 L/m flow. We will cut down her FiO2 to 40% since the patient is saturating about 97%. Patient seems to be tachypneic, but not tachycardic, and she seems to be hemodynamically stable. She is being treated for septic joint and for presumptive left lower lobe pneumonia. And she is also being treated for E. coli urinary tract infection. Patient had positive beta hemolytic strep from the left knee joint. Remains on antibiotics. Today I have reviewed the chest x-ray, and I have recommended one dose of Lasix 40 mg 1, I also recommended DuoNeb, and Protonix. Chest x-ray showed mostly retrocardiac opacity in the left lower lobe, underlying COPD, and some mild interstitial changes/chronic. Electrolytes showed low potassium of 3.3 BUN is 44 creatinine 2.70. Patient presented with a creatinine of 2.38 and went as high as 3.04. Objective - Vital Signs Vital signs: Vital Signs Temp 98.9 F 08/18/19 00:00 Pulse 80 08/18/19 08:00 Resp 23 08/18/19 08:00 BP 136/62 08/18/19 08:00 Pulse Ox 96 08/18/19 08:00 Intake & Output 08/17/19 08/18/19 08/18/19 18:59 06:59 18:59 Intake Total 370 340 40 Output Total 1850 560 60 Balance -1480 -220 -20 Weight 56 kg 56 kg Intake: IV 320 340 40 Clindamycin 600 mg In 50 100 Dextrose 5% in Water 50 ml @ 50 mls/hr IVPB Q8H [facility] Rx#:[id number] Dextrose 5% in Water 1, 150 000 ml @ 150 mls/hr IV . Q7H40M [facility] with Sodium Bicarb (1 Meq/ml) 150 ml Rx#:[id number] Sodium Chloride 0.9% 1, 120 190 40 000 ml @ 20 mls/hr IV . Q24H [facility] Rx#:[id number] ceFAZolin 2 gm In Sodium 50 Chloride 0.9% 50 ml @ 100 mls/hr IVPB Q8HR [facility] Rx# :[id number] Intake, IV Titration 50 Amount ceFAZolin 2 gm In Sodium 50 Chloride 0.9% 50 ml @ 100 mls/hr IVPB Q12HR [facility] Rx #:[id number] Output: Urine 1850 560 60 Other: Voiding Method Indwelling Catheter Indwelling Catheter - Exam Physical Exam: Revealed a 74-year-old female confused, on high flow O2/airvo, 40% and 40 L/m flow Head: Atraumatic, normocephalic. HEENT:[Neck is supple.] [No neck masses.] [No thyromegaly.] [No JVD.] PERRLA, EOMI, no icterus. Chest: Symmetrical chest expansion. [Fine crackles mostly at the left base. No rhonchi and no wheezes. Cardiac Exam: [Normal S1 and S2, no S3 gallop, no murmur.] Abdomen: [Soft, nontender, no megaly, no rebound, no guarding, normal bowel sounds.] Extremities: [No clubbing, no edema, no cyanosis.] Atrophy of muscles and lower extremities bilaterally. There is a surgical wound at the anterior aspect of the left knee with Aquacel and appropriate dressing noted in place. Neurological Exam: Alert and oriented 3 today, no gross focal neurologic deficits. Psychiatric: Blunted mood and affect. Improved mental status compared to yeste rday Skin: No rashes. Lymphatics: No lymphadenopathy. - Labs CBC & Chem 7: 08/18/19 04:35 08/18/19 07:35 Labs: Abnormal Lab Results - Last 24 Hours (Table) 08/17/19 08/17/19 08/18/19 Range/Units 11:58 18:10 04:31 RBC (3.80-5.40) m/uL Hgb (11.4-16.0) gm/dL Hct (34.0-46.0) % Potassium (3.5-5.1) mmol/L BUN (7-17) mg/dL Creatinine (0.52-1.04) mg/dL Glucose (74-99) mg/dL POC Glucose (mg/dL) 136 H 148 H 120 H (75-99) mg/dL 08/18/19 08/18/19 Range/Units 04:35 07:35 RBC 2.35 L (3.80-5.40) m/uL Hgb 7.1 L (11.4-16.0) gm/dL Hct 22.5 L (34.0-46.0) % Potassium 3.3 L (3.5-5.1) mmol/L BUN 44 H (7-17) mg/dL Creatinine 2.70 H (0.52-1.04) mg/dL Glucose 107 H (74-99) mg/dL POC Glucose (mg/dL) (75-99) mg/dL Microbiology - Last 24 Hours (Table) 08/12/19 19:40 Blood Culture - Preliminary Blood No Growth after 120 hours Assessment and Plan Assessment: Impression: Septic left knee joint, secondary to beta hemolytic strep group G. Acute metabolic encephalopathy and acute mental status change secondary to sepsis. Improving compared to the last 24 hours. Suspect left lower lobe pneumonia based on chest x-ray, this is most likely stre ptococcal pneumonia unless proven otherwise. Acute on chronic kidney disease. Acute hypoxic respiratory failure secondary to left lower lobe pneumonia and underlying COPD Type 2 diabetes. Benign essential hypertension. Chronic kidney disease stage IV E. coli urinary tract infection/acute. Recommendation: Continue antibiotics as per infectious disease. Patient is on cefazolin and on clindamycin. Gentle diuresis, given 1 dose of Lasix, chest x-ray showed minimal interstitial changes, possible diastolic congestive heart failure. We'll continue to monitor the chest x-ray on a daily basis. Continue to monitor renal profile. Titrate FiO2 down on the high flow airvo, Infectious disease and orthopedics to continue to follow. Continue to monitor the patient in the ICU. We'll continue to follow. Prognosis is relatively guarded. But overall I believe patient did improve a bit compared to yesterday specially with her mental status showing slight improvement. Time with Patient: Less than 30
[2019-08-18 11:37] LABS: Glucose,Whole Blood 181 mg/dL (75-99)
[2019-08-18] MEDS: POTASSIUM CHLORIDE 10 MEQ in WATER FOR INJECTION 1 100ML.BAG IVPB SCH ×6 (11:44→21:19)
[2019-08-18] MEDS: ALBUTEROL HFA INHALER INHALATION SCH ×2 (12:25→19:23)
--- NOTE | 2019-08-18 13:41 | P.PN ---
Subjective Progress Note Date: 08/18/19 This is a 74-year-old female patient of Dr. Frazier with past history for COPD, diabetes mellitus type 2 insulin requiring, hypertension, hyperlipidemia, generalized osteoarthritis, generalized anxiety disorder, AAA. Patient has history of osteoarthritis and under the care of Dr. Lara status post left total knee arthroplasty last July. Subsequently, she was readmitted and underwent patellar retinaculum and quadriceps tendon repair. She was readmitted in September for surgical wound ulceration eschar with flap necrosis and underwent I&D was follow-up with Dr. Martinez. Patient presented to the emergency department with chief complaint of left knee pain worsening over the last 2 days, patient arrived via EMS with temperature of 100.0 left knee with hardware visible with purulent drainage noted. Patient received a dose of Zosyn and Vanco in the emergency room and is now on Cefepime IV. We will continue IV hydration. Consults for Dr. Amaya and Dr. Lara are in place. Blood urine and wound cultures have been done. Patient does have history of Pseudomonas and left knee in October. Patient will be admitted to the hospital. 08/13: Patient found this morning with a team called, patient was restless in bed. Blood sugar was 57 and amp of dextrose was given. D5 0.9 IV fluids sta rted. Will attempt to better control pain with Dilaudid and [place] when necessary. 1 dose of Valium given. Labs were reviewed hemoglobin 9.3 BUN 54 creatinine 2.61 lactic acid 2.9, ESR 116. Vital signs are stable, patient remains afebrile blood pressure 143/63 heart rate 66 pulse ox 93% on room air. We will consult Dr. Harrison for evaluation of left knee. Patient is known to him in the past. Orthopedics plan to exhaust conservative treatment options at this time per family request, there are not any indications for surgical irrigation and debridement at this time. Wound care is currently following patient. 08/14: Patient is doing better this morning seen awake and alert eating [facility] st. Left knee culture was positive for beta hemolytic strep group G and followed by Dr. mAaya at this point. Remains on IV Cefepime. Had discussion with daughter Bria plan for IV antibiotics and conservative measures at this time. No invasive procedures, we will do trial of IV antibiotics as outpatient, daughter wants patient to return home. She is a nurse and is able to care for her. Vital signs remained stable, patient is afebrile, heart rate 67 blood pressure 93/43 pulse ox 94% on room air. Acute on chronic renal failure BUN was 61 creatinine was 2.99 this morning hemoglobin stable at 8.9 liver enzymes trending down AST 49 ALTs 49. 08/15: Patient seen this morning lying in bed. She appears to be short of breath and more confused. We will discontinue morphine IV, and give patient 1 dose 40 mg IV Lasix. Vital signs have been stable, she is afebrile, heart also 82, pressure 127/61, pulse ox 97% on room air. Labs were reviewed, hemoglobin 8.4, sodium 142, potassium 5.2, chloride 118, CO2 15, BUN 57, creatinine 3.04 for enzymes are trending down AST is 38 ALTs 38. Plan for no invasive procedures of left knee continue with IV antibiotics daughter has expressed she does not want any surgeries at this time. Urine cultures were positive for E. coli patient's currently cefazolin. Will repeat labs in the morning. 08/16: Patient is laying down in bed does not appear to be in acute distress she continues to be on airflow, she appears to be not following commands, she a ppears congested and oriented and she was taken off her IV fluid and she did receive a dose of Lasix, she continues to be on IV antibiotic in the form of cefepime and clindamycin, and infectious disease are following as well as vascular surgery, patient and her daughter have refused any amputation even though recommended by vascular surgery.patient has been afebrile, heart rate 75, blood pressure 105/61, pulse ox is 97% on Airvo at FiO2 of 60%.hemoglobin stable at 7.9, normal white count. BUN 15 creatinine 2.7. Blood sugars have been running between 129 and 244. patient continued on NovoLog scale. Alkaline phosphatase 265. 08/17: Patient remains in the intensive care unit. She is still on Airvo decreased FiO2 of 40%. She is pulse ox staying 92%. She has been afebrile, heart rate 80, blood pressure 136/62. This morning, patient is awake alert and oriented 3. She does not have memory of yesterday about can answer all questions appropriately. She denies having any headache. No nausea. No pain in her left knee. Repeat blood work reveals hemoglobin of 7.1 and patient will be transfused 1 unit of packed RBCs. Sodium 142, potassium 3.3 and has been replaced, chloride 105, CO2 29, BUN 44 and creatinine 2.7. Blood sugars running between 170s and 181. Repeat chest x-ray reveals stable interstitial change, possible underlying COPD. Retrocardiac/left basilar infiltrate remains. Discussed option of amputation with the patient and she is adamant that she does not want to have an amputation. She is okay with having IV antibiotics. Patient has cleared for phone call to her daughter to provide information. Patient's daughter will be contacted after rounds today and updated. Objective - Vital Signs Vital signs: Vital Signs Temp 98.9 F 08/18/19 00:00 Pulse 80 08/18/19 08:00 Resp 23 08/18/19 08:00 BP 136/62 08/18/19 08:00 Pulse Ox 96 08/18/19 08:00 Intake & Output 08/17/19 08/18/19 08/18/19 18:59 06:59 18:59 Intake Total 370 340 40 Output Total 1850 560 60 Balance -1480 -220 -20 Weight 56 kg 56 kg Intake: IV 320 340 40 Clindamycin 600 mg In 50 100 Dextrose 5% in Water 50 ml @ 50 mls/hr IVPB Q8H [facility] Rx#:[id number] Dextrose 5% in Water 1, 150 000 ml @ 150 mls/hr IV . Q7H40M [facility] with Sodium Bicarb (1 Meq/ml) 150 ml Rx#:[id number] Sodium Chloride 0.9% 1, 120 190 40 000 ml @ 20 mls/hr IV . Q24H [facility] Rx#:[id number] ceFAZolin 2 gm In Sodium 50 Chloride 0.9% 50 ml @ 100 mls/hr IVPB Q8HR [facility] Rx# :[id number] Intake, IV Titration 50 Amount ceFAZolin 2 gm In Sodium 50 Chloride 0.9% 50 ml @ 100 mls/hr IVPB Q12HR [facility] Rx #:[id number] Output: Urine 1850 560 60 Other: Voiding Method Indwelling Catheter Indwelling Catheter - Exam Review Of Systems: Constitutional: No fever, no chills, no night sweats. No weight change. No weakness, reports fatigue. No daytime sleepiness. EENT: No headache. No blurred vision or double vision, no loss of vision. No loss of Hearing, no ringing in the ears, no dizziness. No nasal drainage or congestion. No epistaxis. No sore throat. Lungs: Reports shortness of breath, cough, no sputum production. No wheezing. Cardiovascular: No chest pain, no lower extremity edema. No palpitations. No paroxysmal nocturnal dyspnea. No orthopnea. No lightheadedness or dizziness. No syncopal episodes. Abdominal: No abdominal pain. No nausea, vomiting. No diarrhea. No co nstipation. No bloody or tarry stools.. No loss of appetite. Genitourinary: No dysuria, increased frequency, urgency. No urinary retention. Musculoskeletal: No myalgias. No muscle weakness, no gait dysfunction, no frequent falls. No back pain. No neck pain. Integumentary: Reports left knee wound. No rash or pruritus. No unusual bruising. No change in hair or nails. Neurologic: No aphasia. No facial droop. No change in mentation. No head injury. No headache. No paralysis. No paresthesia. Psychiatric: No depression. No anxiety. No mood swings. Endocrine: No abnormal blood sugars. No weight change. No excessive sweating or thirst. No cold intolerance. Physical exam: Gen: This is a 74-year-old female. Patient resting in ICU bed. No respiratory distress noted. HEENT: Head is atraumatic, normocephalic. Pupils equal, round. Sclerae is anicteric. NECK: Supple. No JVD. No lymphadenopathy. No thyromegaly. LUNGS: Lung sounds diminished, with fine crackles. No wheezes or rhonchi. No intercostal retractions. HEART: Regular rate and rhythm. Grade 2 systolic murmur ABDOMEN: Soft. Bowel sounds are present. No masses. No tenderness. EXTREMITIES: No pedal edema. No calf tenderness. Left knee dressing intact minimal purulent drainage today NEUROLOGICAL: Patient is awake alert and oriented 3. - Labs CBC & Chem 7: 08/18/19 04:35 08/18/19 07:35 Labs: Abnormal Lab Results - Last 24 Hours (Table) 08/17/19 08/17/19 08/18/19 Range/Units 11:58 18:10 04:31 RBC (3.80-5.40) m/uL Hgb (11.4-16.0) gm/dL Hct (34.0-46.0) % Potassium (3.5-5.1) mmol/L BUN (7-17) mg/dL Creatinine (0.52-1.04) mg/dL Glucose (74-99) mg/dL POC Glucose (mg/dL) 136 H 148 H 120 H (75-99) mg/dL 08/18/19 08/18/19 Range/Units 04:35 07:35 RBC 2.35 L (3.80-5.40) m/uL Hgb 7.1 L (11.4-16.0) gm/dL Hct 22.5 L (34.0-46.0) % Potassium 3.3 L (3.5-5.1) mmol/L BUN 44 H (7-17) mg/dL Creatinine 2.70 H (0.52-1.04) mg/dL Glucose 107 H (74-99) mg/dL POC Glucose (mg/dL) (75-99) mg/dL Microbiology - Last 24 Hours (Table) 08/12/19 19:40 Blood Culture - Preliminary Blood No Growth after 120 hours Assessment and Plan Plan: 1. Septic left knee arthroplasty. Blood urine and wound Cultures have been obtained ID and Ortho are on the case. Continue cefazolin and clindamycin. Left knee wound cultures show beta hemolytic strep group B followed by Dr. Amaya. Spoke with daughter Bria plan for conservative measurements with outpatient IV antibiotics at this time. Wound care consult and consult with Dr. Harrison appreciated. 2. Acute septic metabolic encephalopathy, resolved. continue current treatment. 3. Possible left lower lobe pneumonia. Continue antibiotics. Consult with Dr. Orellana appreciated. 4. Acute hypoxic respiratory failure. Patient currently on Airvo. 5. Acute E. coli UTI, present on admission. Continue antibiotics. 6. Diabetes mellitus type 2, stable sliding scale with meals 7. Hypertension. Continue Coreg 25 mg twice daily, losartan 50 mg daily. 8. Hyperlipidemia. Continue atorvastatin. 9. Generalized anxiety disorder. Continue Xanax or 0.25 mg every 8 hours as needed. 10. History of bowel resection, stable. 11. Tobacco use and dependence. Recommended nicotine patch 12. DVT prophylaxis. Heparin SC 13. GI prophylaxis. we will continue with PPI. 14. Acute pain. Improved Dilaudid and [place] when necessary. Morphine was discontinued. 15. Lactic acidosis. resolved and was taken off Bicarbonate drip. 16. Stage V chronic kidney disease with acute tubular necrosis. will continue to monitor, repeat labs in the morning. 17. Anemia of chronic disease. No signs of bleeding. Transfuse 1 unit of packed RBCs. 18. COVID-19 ruled out. Discharge plan: To be determined. Impression and plan of care have been directed as dictated by the signing physician. Annie Ba nurse practitioner acting as scribe for signing physician.
--- NOTE | 2019-08-18 16:31 | PN ---
PROGRESS NOTE DATE OF SERVICE: 08/18/2019 REASON FOR FOLLOWUP: Left knee infection and UTI. INTERVAL HISTORY: The patient is currently afebrile. The patient is more awake and alert today; however, she remains pleasantly confused and . No chest pain. No cough. No abdominal pain or any worsening pain to the left knee area. PHYSICAL EXAMINATION: Blood pressure is 109/64 with a pulse of 70, temperature 97.8. She is 95% on high-flow oxygen. General description is an elderly female lying in bed in no distress. RESPIRATORY SYSTEM: Unlabored breathing. Clear to auscultation anteriorly. HEART: S1, S2. Regular rate and rhythm. ABDOMEN: Soft. No tenderness. LABS: Hemoglobin 7.9, white count 4.4. BUN of 44, creatinine is 2.70. DIAGNOSTIC IMPRESSION AND PLAN: Patient with a left knee chronic infection. Culture with beta-hemolytic group C strep with E coli in the urine. The patient is currently covered with cefazolin and clindamycin; to continue. Monitor clinical course closely. MMODL / IJN: [id number] /
[2019-08-18 16:43] LABS: Glucose,Whole Blood 122 mg/dL (75-99)
[2019-08-18 20:17] LABS: Glucose,Whole Blood 153 mg/dL (75-99)
[2019-08-18] MEDS: ATORVASTATIN 40 MG TAB PO SCH (20:25)
[2019-08-18] MEDS: traZODone HCL 50 MG TAB PO SCH (20:26)
[2019-08-18] MEDS: ASPIRIN 81 MG PO SCH (20:26)
[2019-08-19] MEDS: CLINDAMYCIN 600 MG in DEXTROSE 5% IN WATER 50 ML IVPB SCH ×6 (02:58→18:23)
[2019-08-19] MEDS: HYDROcodone/APAP 5-325MG 1 EACH TAB PO PRN (03:01)
[2019-08-19 05:51] LABS: Basophils % (A) 0 %; Eosinophils # (A) 0.1 k/uL (0-0.7); Eosinophils % (A) 1 %; HCT 24.1 % (34.0-46.0); HGB 7.8 gm/dL (11.4-16.0); Hypochromasia Slight; Lymphocytes # (A) 1.2 k/uL (1.0-4.8); Lymphocytes % (A) 26 %; MCH 30.3 pg (25.0-35.0); MCHC 32.5 g/dL (31.0-37.0); MCV 93.2 fL (80.0-100.0); Mean Platelet Volume 8.5; Monocytes # (A) 0.3 k/uL (0-1.0); Monocytes % (A) 7 %; Neutrophils % (A) 63 %; Platelet Count 176 k/uL (150-450); RBC 2.59 m/uL (3.80-5.40); RDW 15.7 % (11.5-15.5); WBC 4.8 k/uL (3.8-10.6)
[2019-08-19] MEDS: INSULIN ASPART (NovoLOG) 100 UNIT/ML VIAL SQ SCH ×3 (06:51→18:21)
[2019-08-19] MEDS: CARVEDILOL 12.5 MG TAB PO SCH ×2 (06:51→18:23)
[2019-08-19 06:52] LABS: Glucose,Whole Blood 105 mg/dL (75-99)
[2019-08-19] MEDS: PANTOPRAZOLE 40 MG TABLET PO SCH (06:53)
[2019-08-19 07:22] LABS: Calcium 8.3 mg/dL (8.4-10.2); Potassium 3.8 mmol/L (3.5-5.1)
--- NOTE | 2019-08-19 07:24 | XR ---
EXAMINATION TYPE: XR chest 1V portable DATE OF EXAM: 08/19/2019 COMPARISON: 08/10/2019 INDICATION: Arms ( TECHNIQUE: Single frontal view of the chest is obtained. FINDINGS: The heart size is borderline prominent. The pulmonary vasculature is mildly prominent. There is diffuse increased lung markings greater at the left base to the left lung compared to the ri ght. Findings are stable over the interval. Left central venous catheter is present with tip in the s uperior vena cava region. IMPRESSION: 1. Patchy diffuse infiltrate greater on the left and greater at the left base. Findings appear stable over the interval.
[2019-08-19] MEDS ORDERED: Potassium Replacement Protocol 1 EACH MISC MISCELLANE PRN (07:26)
[2019-08-19] MEDS: TIOTROPIUM 18 MCG/PUFF INHALER INHALATION SCH (07:37)
[2019-08-19] MEDS: ALBUTEROL HFA INHALER INHALATION SCH ×2 (07:37→11:17)
[2019-08-19] MEDS ORDERED: POTASSIUM CHLORIDE ER 20 MEQ TAB.ER PO SCH (08:00)
[2019-08-19] MEDS ORDERED: FUROSEMIDE 10 MG/ML 4 ML VIAL IV STA (08:08)
[2019-08-19] MEDS ORDERED: ALBUTEROL NEBULIZED 1.25 MG/3 ML INHALATION PRN (08:10)
[2019-08-19] MEDS: FAMOTIDINE 20 MG TAB PO SCH (08:41)
[2019-08-19] MEDS: CHOLECALCIFEROL 1,000 UNIT TAB PO SCH (08:41)
[2019-08-19] MEDS: LEVOTHYROXINE 25 MCG TAB PO SCH (08:41)
[2019-08-19] MEDS: HEPARIN SODIUM,PORCINE 5,000 UNIT/ML 1 ML VIAL SQ SCH ×2 (08:41→21:17)
[2019-08-19] MEDS: ASCORBIC ACID 500 MG TAB PO SCH (08:41)
[2019-08-19] MEDS: LOSARTAN 50 MG TAB PO SCH (08:41)
[2019-08-19] MEDS: SERTRALINE 100 MG TAB PO SCH (08:42)
[2019-08-19] MEDS ORDERED: LIDOCAINE 1% INJ 10MG/ML (20 ML MDV) ONE (11:26)
[2019-08-19] MEDS ORDERED: LIDOCAINE 1% INJ 10MG/ML (20 ML MDV) SQ ONE (11:42)
--- NOTE | 2019-08-19 11:45 | P.PN ---
Subjective Progress Note Date: 08/19/19 This is a 74-year-old female patient of Dr. Frazier with past history for COPD, diabetes mellitus type 2 insulin requiring, hypertension, hyperlipidemia, generalized osteoarthritis, generalized anxiety disorder, AAA. Patient has history of osteoarthritis and under the care of Dr. Lara status post left total knee arthroplasty last July. Subsequently, she was readmitted and underwent patellar retinaculum and quadriceps tendon repair. She was readmitted in September for surgical wound ulceration eschar with flap necrosis and underwent I&D was follow-up with Dr. Martinez. Patient presented to the emergency department with chief complaint of left knee pain worsening over the last 2 days, patient arrived via EMS with temperature of 100.0 left knee with hardware visible with purulent drainage noted. Patient received a dose of Zosyn and Vanco in the emergency room and is now on Cefepime IV. We will continue IV hydration. Consults for Dr. Amaya and Dr. Lara are in place. Blood urine and wound cultures have been done. Patient does have history of Pseudomonas and left knee in October. Patient will be admitted to the hospital. 08/13: Patient found this morning with a team called, patient was restless in bed. Blood sugar was 57 and amp of dextrose was given. D5 0.9 IV fluids sta rted. Will attempt to better control pain with Dilaudid and [place] when necessary. 1 dose of Valium given. Labs were reviewed hemoglobin 9.3 BUN 54 creatinine 2.61 lactic acid 2.9, ESR 116. Vital signs are stable, patient remains afebrile blood pressure 143/63 heart rate 66 pulse ox 93% on room air. We will consult Dr. Harrison for evaluation of left knee. Patient is known to him in the past. Orthopedics plan to exhaust conservative treatment options at this time per family request, there are not any indications for surgical irrigation and debridement at this time. Wound care is currently following patient. 08/14: Patient is doing better this morning seen awake and alert eating [facility] Left knee culture was positive for beta hemolytic strep group G and followed by Dr. Amaya at this point. Remains on IV Cefepime. Had discussion with daughter Bria plan for IV antibiotics and conservative measures at this time. No invasive procedures, we will do trial of IV antibiotics as outpatient, daughter wants patient to return home. She is a nurse and is able to care for her. Vital signs remained stable, patient is afebrile, heart rate 67 blood pressure 93/43 pulse ox 94% on room air. Acute on chronic renal failure BUN was 61 creatinine was 2.99 this morning hemoglobin stable at 8.9 liver enzymes trending down AST 49 ALTs 49. 08/15: Patient seen this morning lying in bed. She appears to be short of breath and more confused. We will discontinue morphine IV, and give patient 1 dose 40 mg IV Lasix. Vital signs have been stable, she is afebrile, heart also 82, pressure 127/61, pulse ox 97% on room air. Labs were reviewed, hemoglobin 8.4, sodium 142, potassium 5.2, chloride 118, CO2 15, BUN 57, creatinine 3.04 for enzymes are trending down AST is 38 ALTs 38. Plan for no invasive procedures of left knee continue with IV antibiotics daughter has expressed she does not want any surgeries at this time. Urine cultures were positive for E. coli patient's currently cefazolin. Will repeat labs in the morning. 08/16: Patient is laying down in bed does not appear to be in acute distress she continues to be on airflow, she appears to be not following commands, she a ppears congested and oriented and she was taken off her IV fluid and she did receive a dose of Lasix, she continues to be on IV antibiotic in the form of cefepime and clindamycin, and infectious disease are following as well as vascular surgery, patient and her daughter have refused any amputation even though recommended by vascular surgery.patient has been afebrile, heart rate 75, blood pressure 105/61, pulse ox is 97% on Airvo at FiO2 of 60%.hemoglobin stable at 7.9, normal white count. BUN 15 creatinine 2.7. Blood sugars have been running between 129 and 244. patient continued on NovoLog scale. Alkaline phosphatase 265. 08/17: Patient remains in the intensive care unit. She is still on Airvo decreased FiO2 of 40%. She is pulse ox staying 92%. She has been afebrile, heart rate 80, blood pressure 136/62. This morning, patient is awake alert and oriented 3. She does not have memory of yesterday about can answer all questions appropriately. She denies having any headache. No nausea. No pain in her left knee. Repeat blood work reveals hemoglobin of 7.1 and patient will be transfused 1 unit of packed RBCs. Sodium 142, potassium 3.3 and has been replaced, chloride 105, CO2 29, BUN 44 and creatinine 2.7. Blood sugars running between 170s and 181. Repeat chest x-ray reveals stable interstitial change, possible underlying COPD. Retrocardiac/left basilar infiltrate remains. Discussed option of amputation with the patient and she is adamant that she does not want to have an amputation. She is okay with having IV antibiotics. Patient has cleared for phone call to her daughter to provide information. Patient's daughter will be contacted after rounds today and updated. 08/18: patient remains in the intensive care unit. She is currently on Airvo with decreased FiO2 of 30%. She is pulse ox 95%. Heart rate 57, blood pressure 133/61. WBC 4.8, hemoglobin 7.8, platelet count 176. Electrolytes normal, BUN 45 and creatinine 2.72. Blood sugars running between 92-153. chest x-ray reveals patchy diffuse infiltrate greater on the left and greater at the left base. Findings appear stable Patient has been cleared for transfer out to the [facility] floor today. Lasix IV 1 ordered for this morning. PICC line has been orderedand triple-lumen to be discontinued. Patient states that she is not eating very much and not sleeping well. Remeron added. Objective - Vital Signs Vital signs: Vital Signs Temp 98 F 08/19/19 08:00 Pulse 64 08/19/19 09:00 Resp 15 08/19/19 09:00 BP 119/56 08/19/19 09:00 Pulse Ox 95 08/19/19 09:00 Intake & Output 08/18/19 08/19/19 08/19/19 18:59 06:59 18:59 Intake Total 1000 490 350 Output Total 988 545 75 Balance 12 -55 275 Weight 56 kg 56.1 kg Intake: IV 240 490 110 Potassium Chloride 10 meq 200 In Water For Injection 1 100ml.bag @ 100 mls/hr IVPB Q1H [facility] Rx#: [id number] Sodium Chloride 0.9% 1, 240 240 60 000 ml @ 20 mls/hr IV . Q24H [facility] Rx#:[id number] ceFAZolin 2 gm In Sodium 50 50 Chloride 0.9% 50 ml @ 100 mls/hr IVPB Q12HR [facility] Rx #:[id number] Intake, IV Titration 450 Amount Potassium Chloride 10 meq 400 In Water For Injection 1 100ml.bag @ 100 mls/hr IVPB Q1HR [facility] Rx#: [id number] ceFAZolin 2 gm In Sodium 50 Chloride 0.9% 50 ml @ 100 mls/hr IVPB Q12HR [facility] Rx #:[id number] Oral 240 Blood Product 310 Rc As-3 Unit 310 [id number] Output: Urine 988 545 75 Other: Voiding Method Indwelling Catheter Indwelling Catheter Indwelling Catheter - Exam Review Of Systems: Constitutional: No fever, no chills, no night sweats. No weight change. No weakness, reports fatigue. No daytime sleepiness. EENT: No headache. No blurred vision or double vision, no loss of vision. No loss of Hearing, no ringing in the ears, no dizziness. No nasal drainage or congestion. No epistaxis. No sore throat. Lungs: Reports shortness of breath, cough, no sputum production. No wheezing. Cardiovascular: No chest pain, no lower extremity edema. No palpitations. No paroxysmal nocturnal dyspnea. No orthopnea. No lightheadedness or dizziness. No syncopal episodes. Abdominal: No abdominal pain. No nausea, vomiting. No diarrhea. No const ipation. No bloody or tarry stools. report loss of appetite. Genitourinary: No dysuria, increased frequency, urgency. No urinary retention. Musculoskeletal: No myalgias. No muscle weakness, no gait dysfunction, no frequent falls. No back pain. No neck pain. Integumentary: Reports left knee wound. No rash or pruritus. No unusual bruising. No change in hair or nails. Neurologic: No aphasia. No facial droop. No change in mentation. No head injury. No headache. No paralysis. No paresthesia. Psychiatric: No depression. No anxiety. No mood swings. Reports insomnia. Endocrine: No abnormal blood sugars. No weight change. No excessive sweating or thirst. No cold intolerance. Physical exam: Gen: This is a 74-year-old female. Patient resting in ICU bed. No respiratory distress noted. HEENT: Head is atraumatic, normocephalic. Pupils equal, round. Sclerae is anicteric. NECK: Supple. No JVD. No lymphadenopathy. No thyromegaly. LUNGS: Lung sounds diminished, with fine crackles. No wheezes or rhonchi. No intercostal retractions. HEART: Regular rate and rhythm. Grade 2 systolic murmur ABDOMEN: Soft. Bowel sounds are present. No masses. No tenderness. EXTREMITIES: No pedal edema. No calf tenderness. Left knee dressing intact. NEUROLOGICAL: Patient is awake alert and oriented 3.cranial nerves II through XII are grossly intact. No focalized weakness. - Labs CBC & Chem 7: 08/19/19 05:44 08/19/19 05:44 Labs: Abnormal Lab Results - Last 24 Hours (Table) 08/18/19 08/18/19 08/18/19 Range/Units 11:36 11:45 16:42 RBC (3.80-5.40) m/uL Hgb (11.4-16.0) gm/dL Hct (34.0-46.0) % RDW (11.5-15.5) % BUN (7-17) mg/dL Creatinine (0.52-1.04) mg/dL POC Glucose (mg/dL) 181 H 122 H (75-99) mg/dL Calcium (8.4-10.2) mg/dL Crossmatch See Detail 08/18/19 08/19/19 08/19/19 Range/Units 20:15 05:44 05:44 RBC 2.59 L (3.80-5.40) m/uL Hgb 7.8 L (11.4-16.0) gm/dL Hct 24.1 L (34.0-46.0) % RDW 15.7 H (11.5-15.5) % BUN 45 H (7-17) mg/dL Creatinine 2.72 H (0.52-1.04) mg/dL POC Glucose (mg/dL) 153 H (75-99) mg/dL Calcium 8.3 L (8.4-10.2) mg/dL Crossmatch 08/19/19 Range/Units 06:51 RBC (3.80-5.40) m/uL Hgb (11.4-16.0) gm/dL Hct (34.0-46.0) % RDW (11.5-15.5) % BUN (7-17) mg/dL Creatinine (0.52-1.04) mg/dL POC Glucose (mg/dL) 105 H (75-99) mg/dL Calcium (8.4-10.2) mg/dL Crossmatch Microbiology - Last 24 Hours (Table) 08/12/19 19:40 Blood Culture - Final Blood No Growth after 144 hours Assessment and Plan Plan: 1. Septic left knee arthroplasty. Blood urine and wound Cultures have been obtained ID and Ortho are on the case. Continue cefazolin and clindamycin. Left knee wound cultures show beta hemolytic strep group B followed by Dr. Amaya. Spoke with daughter Bria plan for conservative measurements with outpatient IV antibiotics at this time. Wound care consult and consult with Dr. Harrison and orthopedicsappreciated. 2. Acute septic metabolic encephalopathy, resolved. continue current treatment. 3. Possible left lower lobe pneumonia. Continue antibiotics. Consult with Dr. Jacquelyn guerrero. 4. Acute hypoxic respiratory failure. Patient currently on Airvo. 5. Acute E. coli UTI, present on admission. Continue antibiotics. 6. Diabetes mellitus type 2, stable sliding scale with meals 7. Hypertension. Continue Coreg 25 mg twice daily, losartan 50 mg daily. 8. Hyperlipidemia. Continue atorvastatin. 9. Generalized anxiety disorder. Continue Xanax or 0.25 mg every 8 hours as needed. 10. History of bowel resection, stable. 11. Tobacco use and dependence. Recommended nicotine patch 12. DVT prophylaxis. Heparin SC 13. GI prophylaxis. we will continue with PPI. 14. Acute pain. continue Tylenol as needed. 15. Lactic acidosis. resolved and was taken off Bicarbonate drip. 16. Stage V chronic kidney disease with acute tubular necrosis. will continue to monitor, repeat labs in the morning. 17. Anemia of chronic disease. No signs of bleeding. Transfuse 1 unit of packed RBCs. 18. COVID-19 ruled out. Discharge plan: home with [facility] care and IV antibiotics. PICC line has been ordered. Impression and plan of care have been directed as dictated by the signing physician. Annie Ba nurse practitioner acting as scribe for signing physician.
--- NOTE | 2019-08-19 11:47 | P.PN ---
Subjective Progress Note Date: 08/19/19 Principal diagnosis: Septic left knee arthritis. And possible acute community-acquired left lower lobe pneumonia Patient is a very pleasant 74-year-old female who was transferred to the intensive care unit as the patient was found to be quite short of breath and progressively more confused by the primary care physician team. The patient is a very complicated history of a septic joint involving the left knee. The patient was hospitalized for ongoing infection. The patient was being treated with broad-spectrum antibiotics as the patient was found to have a beta hemolytic strep group G from the left knee cultures. Infectious disease was also involved in the case and the patient was covered with appropriate antibiotics. Nevertheless, this morning, the patient was found to be quite restless, lethargic, confused, restless in bed, having tachypnea. At that point, a chest x-ray was done that showed no acute abnormalities. There was some limited infiltration of the left lung base consistent with a left lower lobe pneumonia. The blood work showed an acute on chronic kidney failure with a creatinine being up to 3.04. The patient also developed an anion gap metabolic acidosis. Lactic acid level earlier was nonelevated. A blood gas was done that showed a pH of 7.27 with a pCO2 of 30 and pO2 of 53. White cell count from this morning was 5.6 and hemoglobin was at 8.4. Accordingly, the patient got transferred to the intensive care unit. Noted this blood gases was done and FiO2 of 32%. In terms of her knee, this patient has a extensive history in regards to her left knee. Patient states approximately she began to experience increased pain at the left knee. She denies any injuries. She is unable to flex the left knee, which is chronic following her most recent surgical intervention. Since her admission she has been started on Cefepime. It appears the patient had received 1 dose of vancomycin and 1 dose of Zosyn. Patient states since her ad mission she's had 95% improvement of her left knee pain. Patient is known to have undergone a left total knee arthroplasty on 08/05/[address] Gaspar at [facility]. Post operatively she was readmitted and underwent further surgical intervention for a patellar retinaculum and quadriceps tendon repair performed on 09/09/2017. She was seen and examined by orthopedics on 09/25/2018 and underwent incision and drainage of the left knee performed by Dr. Vincenzo Lara on 09/26/2018. During surgical intervention she was found have significant soft tissue loss which may have required further skin grafting or even muscle flap. Patient was seen by Dr. Harrison vascular surgery. Patient was transferred for further surgical intervention. Patient subsequently underwent further significant surgery at her left knee in which previous total knee arthroplasty hardware was removed and a femoral tibial david and apparent antibiotic interbody spacer was placed. Patient stated she's had significant difficulty with wound healing since that surgery in the summer. She continued to have an open wound over the left anterior knee which would be superior to the patella. She states she has continued to work with wound care. She feels overall her wound has had significant improvement following surgical intervention in the summer. Previous dictation states the patient's family would like to exhaust conservative treatment options and would like to continue with IV antibiotics while avoiding any surgical intervention. Patient states at the bedside she elected to continue with conservative nonoperative treatments as well. Patient does have a significant medical history which includes smoker, COPD, diabetes mellitus, hyperlipidemia, hypertension, and is currently being treated for urinary tract infection. . Patient was reevaluated today on 08/17/19, remains in the ICU, presently on high flow airvo at 45 L/m, FiO2 of 60%, and her O2 saturation is 97%. Patient is confused I'm history she has some underlying dementia. Patient is on IV fluid at 20 mL per hour, and she is also on bicarb drip which I have discontinued today. Chest x-ray is suspicious for left lower lobe pneumonia, and the patient is on antibiotics for left knee septic arthritis, and presumptive left lower lobe pneumonia secondary to beta streptococcus. And there is also evidence of E. coli urinary tract infection. Antibiotics [place], the patient is on cefazolin, clindamycin, as per infectious disease on the case. Patient is hemodynamically stable, and I was able to cut down her FiO2 to 40%, and I recommended one dose of Lasix 40 mg IV push to be given 1. IV fluid now is at KVO incentive 1 50 mL per hour. CBC showed WBC count of 5.8 hemoglobin of 7.9. Electrolytes are normal BUN is down to 50 creatinine is a bit higher at 2.70 today Reevaluated today on 08/18/19, patient remains in the intensive care unit, presently on high flow oxygen utilizing airvo with FiO2 of 45%. And 40 L/m flow. We will cut down her FiO2 to 40% since the patient is saturating about 97%. Patient seems to be tachypneic, but not tachycardic, and she seems to be hemodynamically stable. She is being treated for septic joint and for presumptive left lower lobe pneumonia. And she is also being treated for E. coli urinary tract infection. Patient had positive beta hemolytic strep from the left knee joint. Remains on antibiotics. Today I have reviewed the chest x-ray, and I have recommended one dose of Lasix 40 mg 1, I also recommended DuoNeb, and Protonix. Chest x-ray showed mostly retrocardiac opacity in the left lower lobe, underlying COPD, and some mild interstitial changes/chronic. Electrolytes showed low potassium of 3.3 BUN is 44 creatinine 2.70. Patient presented with a creatinine of 2.38 and went as high as 3.04. Reevaluated today on 08/19/19, patient remains in the intensive care unit, presently on high flow airvo at 35 L/m, and FiO2 is 35%. Patient O2 saturation is 94%, patient is doing fairly well, seems to be improving, and breathing much easier compared to yesterday. Reviewed her chest x-ray, it is basically unchanged, and I believe the findings in the left lower lobe are likely chronic. Patient was placed back on [facility], and we have discontinued droplet isolation on this patient. Chest x-ray again is basically about the same. Labs were all reviewed. WBC count is 4.8 hemoglobin is 7.8F lites are normal renal profile remains marginal with a BUN of 45 creatinine 2.72, relatively about the same compared to the last few days. Patient did receive a dose of Lasix yesterday, and she was placed on [facility] Objective - Vital Signs Vital signs: Vital Signs Temp 98 F 08/19/19 08:00 Pulse 57 L 08/19/19 10:00 Resp 12 08/19/19 10:00 BP 133/61 08/19/19 10:00 Pulse Ox 97 08/19/19 11:16 Intake & Output 08/18/19 08/19/19 08/19/19 18:59 06:59 18:59 Intake Total 1000 490 420 Output Total 988 545 650 Balance Weight 56 kg 56.1 kg Intake: IV 240 490 180 Clindamycin 600 mg In 50 Dextrose 5% in Water 50 ml @ 50 mls/hr IVPB Q8H [facility] Rx#:[id number] Potassium Chloride 10 meq 200 In Water For Injection 1 100ml.bag @ 100 mls/hr IVPB Q1H [facility] Rx#: [id number] Sodium Chloride 0.9% 1, 240 240 80 000 ml @ 20 mls/hr IV . Q24H [facility] Rx#:[id number] ceFAZolin 2 gm In Sodium 50 50 Chloride 0.9% 50 ml @ 100 mls/hr IVPB Q12HR [facility] Rx #:[id number] Intake, IV Titration 450 Amount Potassium Chloride 10 meq 400 In Water For Injection 1 100ml.bag @ 100 mls/hr IVPB Q1HR [facility] Rx#: [id number] ceFAZolin 2 gm In Sodium 50 Chloride 0.9% 50 ml @ 100 mls/hr IVPB Q12HR [facility] Rx #:[id number] Oral 240 Blood Product 310 Rc As-3 Unit 310 [id number] Output: Urine 988 545 650 Other: Voiding Method Indwelling Catheter Indwelling Catheter Indwelling Catheter - Exam Physical Exam: Revealed a 74-year-old female confused, on high flow O2/airvo, as noted Head: Atraumatic, normocephalic. HEENT:[Neck is supple.] [No neck masses.] [No thyromegaly.] [No JVD.] PERRLA, EOMI, no icterus. Chest: Symmetrical chest expansion. Diminished at the bases no rhonchi and no wheezes. Cardiac Exam: [Normal S1 and S2, no S3 gallop, no murmur.] Abdomen: [Soft, nontender, no megaly, no rebound, no guarding, normal bowel sounds.] Extremities: [No clubbing, no edema, no cyanosis.] Atrophy of muscles and lower extremities bilaterally. There is a surgical wound at the anterior aspect of the left knee with Aquacel and appropriate dressing noted in place. Neurological Exam: Alert and oriented 3 today, no gross focal neurologic deficits. Psychiatric: Blunted mood and affect. Mental status is intact today. Patient is wondering if she could be discharged home Skin: No rashes. Lymphatics: No lymphadenopathy. - Labs CBC & Chem 7: 08/19/19 05:44 08/19/19 05:44 Labs: Abnormal Lab Results - Last 24 Hours (Table) 08/18/19 08/18/19 08/18/19 Range/Units 11:45 16:42 20:15 RBC (3.80-5.40) m/uL Hgb (11.4-16.0) gm/dL Hct (34.0-46.0) % RDW (11.5-15.5) % BUN (7-17) mg/dL Creatinine (0.52-1.04) mg/dL POC Glucose (mg/dL) 122 H 153 H (75-99) mg/dL Calcium (8.4-10.2) mg/dL Crossmatch See Detail 08/19/19 08/19/19 08/19/19 Range/Units 05:44 05:44 06:51 RBC 2.59 L (3.80-5.40) m/uL Hgb 7.8 L (11.4-16.0) gm/dL Hct 24.1 L (34.0-46.0) % RDW 15.7 H (11.5-15.5) % BUN 45 H (7-17) mg/dL Creatinine 2.72 H (0.52-1.04) mg/dL POC Glucose (mg/dL) 105 H (75-99) mg/dL Calcium 8.3 L (8.4-10.2) mg/dL Crossmatch Microbiology - Last 24 Hours (Table) 08/12/19 19:40 Blood Culture - Final Blood No Growth after 144 hours Assessment and Plan Assessment: Impression: Septic left knee joint, secondary to beta hemolytic strep group G. Acute metabolic encephalopathy and acute mental status change secondary to sep sis. Continues to improve Suspect left lower lobe pneumonia based on chest x-ray, this is most likely streptococcal pneumonia unless proven otherwise. Acute on chronic kidney disease. Acute hypoxic respiratory failure secondary to left lower lobe pneumonia and underlying COPD Type 2 diabetes. Benign essential hypertension. Chronic kidney disease stage IV E. coli urinary tract infection/acute. Recommendation: Transfer patient to a regular medical floor out of the ICU today, improved significantly over the last 2 days. But still requiring antibiotics for her underlying sepsis. Continue antibiotics as per infectious disease. Hold diuretics. Continue to monitor renal profile. Titrate FiO2 down consider switching the patient to a high flow nasal cannula instead of airvo We'll continue to follow. Prognosis is relatively guarded. Consider PICC line placement for long-term IV antibiotics. We'll continue to follow Time with Patient: Less than 30
--- NOTE | 2019-08-19 12:24 | XR ---
EXAMINATION TYPE: XR chest 1V confirm line plcnc DATE OF EXAM: 08/19/2019 COMPARISON: 08/19/2019 HISTORY: 74-year-old female PICC line placement TECHNIQUE: Single frontal view of the chest is obtained. FINDINGS: Right PICC tip at the mid SVC level. Left IJ CVC tip also at the mid SVC level. Patient is markedly r otated towards the left. Left basilar opacity persists. IMPRESSION: Markedly rotated exam. Right PICC tip at the mid SVC level. Left IJ CVC tip also remains at the mid S VC. Continued left basilar opacity.
[2019-08-19 12:51] LABS: Glucose,Whole Blood 140 mg/dL (75-99)
[2019-08-19] MEDS: ALBUTEROL NEBULIZED 2.5 MG/3 ML INHALATION SCH ×2 (16:28→20:35)
[2019-08-19 17:26] LABS: Glucose,Whole Blood 137 mg/dL (75-99)
[2019-08-19] MEDS: ALPRAZolam 0.25 MG TAB PO PRN (18:36)
[2019-08-19] MEDS: traZODone HCL 50 MG TAB PO SCH (21:16)
[2019-08-19] MEDS: ATORVASTATIN 40 MG TAB PO SCH (21:17)
[2019-08-19] MEDS: ASPIRIN 81 MG PO SCH (21:17)
[2019-08-19] MEDS: MIRTAZAPINE 15 MG TAB PO SCH (21:17)
[2019-08-19 21:49] LABS: Glucose,Whole Blood 149 mg/dL (75-99)
--- NOTE | 2019-08-19 22:06 | PN ---
PROGRESS NOTE DATE OF SERVICE: 08/19/2019 REASON FOR FOLLOWUP: Left knee infection and a question of aspiration pneumonitis. INTERVAL HISTORY: The patient is currently afebrile. The patient remains pleasantly confused, though. Now specifically denies having any chest pain or cough. No abdominal pain or pain to the left knee area. PHYSICAL EXAMINATION: Blood pressure 135/67 with a pulse of 59, temperature 98.4. She is 96% on 30% FiO2. General description is an elderly female lying in bed in no distress. RESPIRATORY SYSTEM: Unlabored breathing. Clear to auscultation anteriorly. HEART: S1, S2. Regular rate and rhythm. ABDOMEN: Soft. No tenderness. Left knee is currently dressed up. No significant drainage on the dressing. LABS: Hemoglobin 7.8, white count 4.8. BUN of 45, creatinine 2.72. DIAGNOSTIC IMPRESSION AND PLAN: Patient with a left knee chronic infection in this patient whose culture has been positive for beta-hemolytic group G strep. Also with a component of possible aspiration pneumonitis. The patient is covered with cefazolin and clindamycin; to continue and monitor her clinical course closely. Continue with supportive care. MMODL / IJN: [id number] /
[2019-08-20] MEDS: INSULIN ASPART (NovoLOG) 100 UNIT/ML VIAL SQ SCH ×5 (04:11→20:36)
[2019-08-20] MEDS: CLINDAMYCIN 600 MG in DEXTROSE 5% IN WATER 50 ML IVPB SCH ×6 (04:13→19:06)
[2019-08-20] MEDS: SODIUM CHLORIDE 0.9% 1,000 ML IV SCH (04:14)
[2019-08-20] MEDS ORDERED: IPRATROPIUM-ALBUTEROL 3 ML NEB INHALATION PRN (06:00)
[2019-08-20 06:19] LABS: Glucose,Whole Blood 179 mg/dL (75-99)
[2019-08-20] MEDS: CARVEDILOL 12.5 MG TAB PO SCH ×2 (06:21→17:42)
[2019-08-20] MEDS: PANTOPRAZOLE 40 MG TABLET PO SCH (06:22)
[2019-08-20] MEDS: IPRATROPIUM-ALBUTEROL 3 ML NEB INHALATION SCH ×3 (07:53→20:20)
[2019-08-20] MEDS: SERTRALINE 100 MG TAB PO SCH (08:57)
[2019-08-20] MEDS: CHOLECALCIFEROL 1,000 UNIT TAB PO SCH (08:57)
[2019-08-20] MEDS: LOSARTAN 50 MG TAB PO SCH (08:57)
[2019-08-20] MEDS: LEVOTHYROXINE 25 MCG TAB PO SCH (08:57)
[2019-08-20] MEDS: FAMOTIDINE 20 MG TAB PO SCH (08:57)
[2019-08-20] MEDS: HEPARIN SODIUM,PORCINE 5,000 UNIT/ML 1 ML VIAL SQ SCH ×2 (08:58→21:09)
[2019-08-20] MEDS: ASCORBIC ACID 500 MG TAB PO SCH (08:58)
--- NOTE | 2019-08-20 09:05 | IR ---
PICC LINE PLACEMENT: HISTORY: Infection requiring long-term antibiotic therapy PROCEDURE: Ultrasound guidance of PICC line placement. SURVEY TECHNICIAN: COMPLICATIONS: None ANESTHESIA: 1. 1% Lidocaine locally. FINDINGS/TECHNIQUE: The procedure was explained to the patient. The risks, complications, benefits and alternatives were discussed and any questions were answered. Informed consent was obtained. The patient was placed supine on the fluoroscopic table and prepped and draped in the usual sterile fash ion. Utilizing a 21 gauge needle and sonographic guidance, access in the right basilic vein was ach ieved and there is placement of a 0.018 guidewire. The vein is patent. A 5-F. sheath was placed ove r the guidewire. The guidewire and dilator were removed and a 5-F. Double lumen PICC line was placed through the sheath with the chest x-ray confirming the tip at the level of the SVC. The sheath was removed, the catheter was flushed and sutured into position. The patient was stable throughout the p rocedure and remained stable upon discharge from the Department of Radiology. The vein puncture was patent under ultrasound. A galloway scale image was obtained to document patency of the vein punctured. All elements of the maximal barrier technique were utilized. IMPRESSION: 1. Successful PICC line placement under ultrasound performed bedside within the ICU.
--- NOTE | 2019-08-20 10:49 | P.PN ---
Subjective Progress Note Date: 08/20/19 This is a 74-year-old female patient of Dr. Frazier with past history for COPD, diabetes mellitus type 2 insulin requiring, hypertension, hyperlipidemia, generalized osteoarthritis, generalized anxiety disorder, AAA. Patient has history of osteoarthritis and under the care of Dr. Lara status post left total knee arthroplasty last July. Subsequently, she was readmitted and underwent patellar retinaculum and quadriceps tendon repair. She was readmitted in September for surgical wound ulceration eschar with flap necrosis and underwent I&D was follow-up with Dr. Martinez. Patient presented to the emergency department with chief complaint of left knee pain worsening over the last 2 days, patient arrived via EMS with temperature of 100.0 left knee with hardware visible with purulent drainage noted. Patient received a dose of Zosyn and Vanco in the emergency room and is now on Cefepime IV. We will continue IV hydration. Consults for Dr. Amaya and Dr. Lara are in place. Blood urine and wound cultures have been done. Patient does have history of Pseudomonas and left knee in October. Patient will be admitted to the hospital. 08/13: Patient found this morning with a team called, patient was restless in bed. Blood sugar was 57 and amp of dextrose was given. D5 0.9 IV fluids sta rted. Will attempt to better control pain with Dilaudid and Thoreau when necessary. 1 dose of Valium given. Labs were reviewed hemoglobin 9.3 BUN 54 creatinine 2.61 lactic acid 2.9, ESR 116. Vital signs are stable, patient remains afebrile blood pressure 143/63 heart rate 66 pulse ox 93% on room air. We will consult Dr. Harrison for evaluation of left knee. Patient is known to him in the past. Orthopedics plan to exhaust conservative treatment options at this time per family request, there are not any indications for surgical irrigation and debridement at this time. Wound care is currently following patient. 08/14: Patient is doing better this morning seen awake and alert eating [facility] [address]. Left knee culture was positive for beta hemolytic strep group G and followed by Dr. Amaya at this point. Remains on IV Cefepime. Had discussion with daughter Bria plan for IV antibiotics and conservative measures at this time. No invasive procedures, we will do trial of IV antibiotics as outpatient, daughter wants patient to return home. She is a nurse and is able to care for her. Vital signs remained stable, patient is afebrile, heart rate 67 blood pressure 93/43 pulse ox 94% on room air. Acute on chronic renal failure BUN was 61 creatinine was 2.99 this morning hemoglobin stable at 8.9 liver enzymes trending down AST 49 ALTs 49. 08/15: Patient seen this morning lying in bed. She appears to be short of breath and more confused. We will discontinue morphine IV, and give patient 1 dose 40 mg IV Lasix. Vital signs have been stable, she is afebrile, heart also 82, pressure 127/61, pulse ox 97% on room air. Labs were reviewed, hemoglobin 8.4, sodium 142, potassium 5.2, chloride 118, CO2 15, BUN 57, creatinine 3.04 for enzymes are trending down AST is 38 ALTs 38. Plan for no invasive procedures of left knee continue with IV antibiotics daughter has expressed she does not want any surgeries at this time. Urine cultures were positive for E. coli patient's currently cefazolin. Will repeat labs in the morning. 08/16: Patient is laying down in bed does not appear to be in acute distress she continues to be on airflow, she appears to be not following commands, she a ppears congested and oriented and she was taken off her IV fluid and she did receive a dose of Lasix, she continues to be on IV antibiotic in the form of cefepime and clindamycin, and infectious disease are following as well as vascular surgery, patient and her daughter have refused any amputation even though recommended by vascular surgery.patient has been afebrile, heart rate 75, blood pressure 105/61, pulse ox is 97% on Airvo at FiO2 of 60%.hemoglobin stable at 7.9, normal white count. BUN 15 creatinine 2.7. Blood sugars have been running between 129 and 244. patient continued on NovoLog scale. Alkaline phosphatase 265. 08/17: Patient remains in the intensive care unit. She is still on Airvo decreased FiO2 of 40%. She is pulse ox staying 92%. She has been afebrile, heart rate 80, blood pressure 136/62. This morning, patient is awake alert and oriented 3. She does not have memory of yesterday about can answer all questions appropriately. She denies having any headache. No nausea. No pain in her left knee. Repeat blood work reveals hemoglobin of 7.1 and patient will be transfused 1 unit of packed RBCs. Sodium 142, potassium 3.3 and has been replaced, chloride 105, CO2 29, BUN 44 and creatinine 2.7. Blood sugars running between 170s and 181. Repeat chest x-ray reveals stable interstitial change, possible underlying COPD. Retrocardiac/left basilar infiltrate remains. Discussed option of amputation with the patient and she is adamant that she does not want to have an amputation. She is okay with having IV antibiotics. Patient has cleared for phone call to her daughter to provide information. Patient's daughter will be contacted after rounds today and updated. 08/18: patient remains in the intensive care unit. She is currently on Airvo with decreased FiO2 of 30%. She is pulse ox 95%. Heart rate 57, blood pressure 133/61. WBC 4.8, hemoglobin 7.8, platelet count 176. Electrolytes normal, BUN 45 and creatinine 2.72. Blood sugars running between 92-153. chest x-ray reveals patchy diffuse infiltrate greater on the left and greater at the left base. Findings appear stable Patient has been cleared for transfer out to the [facility] floor today. Lasix IV 1 ordered for this morning. PICC line has been orderedand triple-lumen to be discontinued. Patient states that she is not eating very much and not sleeping well. Shaquille added. 08/19: Yesterday, patient was transferred to cardiac stepdown unit. She is now on nasal cannula 6 L and pulse oxing 95%, she has been afebrile, heart rate 54, blood pressure 101/61. Blood sugars are running between 130s 779. Patient mood appears to be good today. She is anxious to be discharged home. Dr. Valladares advises that once she gets to 4 L nasal cannula, patient is okay to go home. Communication out to Dr. Amaya for antibiotic recommendations. Patient does have a PICC in place. senior planning manager is following closely for home IV antibiotic arrangements. Anticipate possible discharge in the next 24-48 hours. Objective - Vital Signs Vital signs: Vital Signs Temp 97.5 F L 08/20/19 08:00 Pulse 54 L 08/20/19 08:00 Resp 18 08/20/19 08:00 BP 101/61 08/20/19 08:00 Pulse Ox 95 08/20/19 08:00 Intake & Output 08/19/19 08/20/19 08/20/19 18:59 06:59 18:59 Intake Total 1040 220 Output Total 1325 Balance -285 220 Intake: IV 320 220 Clindamycin 600 mg In 50 100 Dextrose 5% in Water 50 ml @ 50 mls/hr IVPB Q8H QUINN Rx#:[id number] Sodium Chloride 0.9% 1, 220 20 000 ml @ 20 mls/hr IV . Q24H QUINN Rx#:[id number] ceFAZolin 2 gm In Sodium 50 100 Chloride 0.9% 50 ml @ 100 mls/hr IVPB Q12HR QUINN Rx #:[id number] Oral 720 Output: Urine 1325 Other: Voiding Method Indwelling Catheter Indwelling Catheter # Voids 1 2 # Bowel Movements 1 1 - Exam Review Of Systems: Constitutional: No fever, no chills, no night sweats. No weight change. No weakness, reports fatigue. No daytime sleepiness. EENT: No headache. No blurred vision or double vision, no loss of vision. No loss of Hearing, no ringing in the ears, no dizziness. No nasal drainage or congestion. No epistaxis. No sore throat. Lungs: Reports shortness of breath, cough, no sputum production. No wheezing. Cardiovascular: No chest pain, no lower extremity edema. No palpitations. No paroxysmal nocturnal dyspnea. No lightheadedness or dizziness. No syncopal episodes. Abdominal: No abdominal pain. No nausea, vomiting. No diarrhea. No constipation. No bloody or tarry stools. report loss of appetite. Genitourinary: No dysuria, increased frequency, urgency. No urinary retention. Musculoskeletal: No myalgias. No muscle weakness, no gait dysfunction, no frequent falls. No back pain. No neck pain. Integumentary: Reports left knee wound. No rash or pruritus. No unusual bruising. No change in hair or nails. Neurologic: No aphasia. No facial droop. No change in mentation. No head injury. No headache. No paralysis. No paresthesia. Psychiatric: No depression. No anxiety. No mood swings. Reports insomnia. Endocrine: No abnormal blood sugars. No weight change. No excessive sweating or thirst. No cold intolerance. Physical exam: Gen: This is a 74-year-old female. Patient resting in bed. No re spiratory distress noted. HEENT: Head is atraumatic, normocephalic. Pupils equal, round. Sclerae is anicteric. NECK: Supple. No JVD. No lymphadenopathy. No thyromegaly. LUNGS: Lung sounds diminished, with fine crackles. No wheezes or rhonchi. No intercostal retractions. HEART: Regular rate and rhythm. Grade 2 systolic murmur ABDOMEN: Soft. Bowel sounds are present. No masses. No tenderness. EXTREMITIES: No pedal edema. No calf tenderness. Left knee dressing intact. NEUROLOGICAL: Patient is awake alert and oriented 3.cranial nerves II through XII are grossly intact. No focalized weakness. - Labs CBC & Chem 7: 08/19/19 05:44 08/19/19 05:44 Labs: Abnormal Lab Results - Last 24 Hours (Table) 08/19/19 08/19/19 08/19/19 Range/Units 12:49 17:25 21:23 POC Glucose (mg/dL) 140 H 137 H 149 H (75-99) mg/dL 08/20/19 Range/Units 06:08 POC Glucose (mg/dL) 179 H (75-99) mg/dL Assessment and Plan Plan: 1. Septic left knee arthroplasty. Blood urine and wound Cultures have been obtained ID and Ortho are on the case. Continue cefazolin and clindamycin. Left knee wound cultures show beta hemolytic strep group B followed by Dr. Amaya. Spoke with daughter Bria plan for conservative measurements with outpatient IV antibiotics at this time. Wound care consult and consult with Dr. Harrison and orthopedics appreciated. PICC line has been inserted. 2. Acute septic metabolic encephalopathy, resolved. continue current treatment. 3. Possible left lower lobe pneumonia. Continue antibiotics. Consult with Dr. Valladares appreciated. 4. Acute hypoxic respiratory failure. Patient currently on 6 L N/C. 5. Acute E. coli UTI, present on admission. Continue antibiotics. 6. Diabetes mellitus type 2, stable sliding scale with meals 7. Hypertension. Continue Coreg 25 mg twice daily, losartan 50 mg daily. 8. Hyperlipidemia. Continue atorvastatin. 9. Generalized anxiety disorder. Continue Xanax or 0.25 mg every 8 hours as needed. 10. History of bowel resection, stable. 11. Tobacco use and dependence. Recommended nicotine patch 12. DVT prophylaxis. Heparin SC 13. GI prophylaxis. we will continue with PPI. 14. Acute pain. continue Tylenol as needed. 15. Lactic acidosis. resolved and was taken off Bicarbonate drip. 16. Stage V chronic kidney disease with acute tubular necrosis. will continue to monitor, repeat labs in the morning. 17. Anemia of chronic disease. No signs of bleeding. Transfuse 1 unit of packed RBCs. 18. COVID-19 ruled out. Discharge plan: home with [facility] home care and IV antibiotics. PICC line is in place. Impression and plan of care have been directed as dictated by the signing physician. Annie Ba nurse practitioner acting as scribe for signing physician.
[2019-08-20 11:34] LABS: Glucose,Whole Blood 109 mg/dL (75-99)
--- NOTE | 2019-08-20 13:21 | P.PN ---
Subjective Progress Note Date: 08/20/19 Principal diagnosis: Acute exacerbation of COPD Patient is a very pleasant 74-year-old female who was transferred to the intensive care unit as the patient was found to be quite short of breath and progressively more confused by the primary care physician team. The patient is a very complicated history of a septic joint involving the left knee. The patient was hospitalized for ongoing infection. The patient was being treated with broad-spectrum antibiotics as the patient was found to have a beta hemolytic strep group G from the left knee cultures. Infectious disease was also involved in the case and the patient was covered with appropriate antibiotics. Nevertheless, this morning, the patient was found to be quite restless, lethargic, confused, restless in bed, having tachypnea. At that point, a chest x-ray was done that showed no acute abnormalities. There was some limited infiltration of the left lung base consistent with a left lower lobe pneumonia. The blood work showed an acute on chronic kidney failure with a creatinine being up to 3.04. The patient also developed an anion gap metabolic acidosis. Lactic acid level earlier was nonelevated. A blood gas was done that showed a pH of 7.27 with a pCO2 of 30 and pO2 of 53. White cell count from this morning was 5.6 and hemoglobin was at 8.4. Accordingly, the patient got transferred to the intensive care unit. Noted this blood gases was done and FiO2 of 32%. In terms of her knee, this patient has a extensive history in regards to her left knee. Patient states approximately she began to experience increased pain at the left knee. She denies any injuries. She is unable to flex the left knee, which is chronic following her most recent surgical intervention. Since her admission she has been started on Cefepime. It appears the patient had received 1 dose of vancomycin and 1 dose of Zosyn. Patient states since her admission she's had 95% improvement of her left knee pain. Patient is known to have undergone a left total knee arthroplasty on 08/05/[address] Gaspar at [facility]. Post operatively she was readmitted and underwent further surgical intervention for a patellar retinaculum and quadriceps tendon repair performed on 09/09/2017. She was seen and examined by orthopedics on 09/25/2018 and underwent incision and drainage of the left knee performed by Dr. Vincenzo Lara on 09/26/2018. During surgical intervention she was found have significant soft tissue loss which may have required further skin grafting or even muscle flap. Patient was seen by Dr. Harrison vascular surgery. Patient was transferred for further surgical intervention. Patient subsequently underwent further significant surgery at her left knee in which previous total knee arthroplasty hardware was removed and a femoral tibial david and apparent antibiotic interbody spacer was placed. Patient stated she's had significant difficulty with wound healing since that surgery in the summer. She continued to have an open wound over the left anterior knee which would be s uperior to the patella. She states she has continued to work with wound care. She feels overall her wound has had significant improvement following surgical intervention in the summer. Previous dictation states the patient's family would like to exhaust conservative treatment options and would like to continue with IV antibiotics while avoiding any surgical intervention. Patient states at the bedside she elected to continue with conservative nonoperative treatments as well. Patient does have a significant medical history which includes smoker, COPD, diabetes mellitus, hyperlipidemia, hypertension, and is currently being treated for urinary tract infection. . Patient was reevaluated today on 08/17/19, remains in the ICU, presently on high flow airvo at 45 L/m, FiO2 of 60%, and her O2 saturation is 97%. Patient is confused I'm history she has some underlying dementia. Patient is on IV fluid at 20 mL per hour, and she is also on bicarb drip which I have discontinued today. Chest x-ray is suspicious for left lower lobe pneumonia, and the patient is on antibiotics for left knee septic arthritis, and presumptive left lower lobe pneumonia secondary to beta streptococcus. And there is also evidence of E. coli urinary tract infection. Antibiotics canchola, the patient is on cefazolin, clindamycin, as per infectious disease on the case. Patient is hemodynamically stable, and I was able to cut down her FiO2 to 40%, and I recommended one dose of Lasix 40 mg IV push to be given 1. IV fluid now is at KVO incentive 1 50 mL per hour. CBC showed WBC count of 5.8 hemoglobin of 7.9. Electrolytes are normal BUN is down to 50 creatinine is a bit higher at 2.70 today Reevaluated today on 08/18/19, patient remains in the intensive care unit, presently on high flow oxygen utilizing airvo with FiO2 of 45%. And 40 L/m flow. We will cut down her FiO2 to 40% since the patient is saturating about 97%. Patient seems to be tachypneic, but not tachycardic, and she seems to be hemodynamically stable. She is being treated for septic joint and for presumptive left lower lobe pneumonia. And she is also being treated for E. coli urinary tract infection. Patient had positive beta hemolytic strep from the left knee joint. Remains on antibiotics. Today I have reviewed the chest x-ray, and I have recommended one dose of Lasix 40 mg 1, I also recommended DuoNeb, and Protonix. Chest x-ray showed mostly retrocardiac opacity in the left lower lobe, underlying COPD, and some mild interstitial changes/chronic. Electrolytes showed low potassium of 3.3 BUN is 44 creatinine 2.70. Patient presented with a creatinine of 2.38 and went as high as 3.04. Reevaluated today on 08/19/19, patient remains in the intensive care unit, presently on high flow airvo at 35 L/m, and FiO2 is 35%. Patient O2 saturation is 94%, patient is doing fairly well, seems to be improving, and breathing much easier compared to yesterday. Reviewed her chest x-ray, it is basically unchanged, and I believe the findings in the left lower lobe are likely chronic. [facility], and we have discontinued droplet isolation on this patient. Chest x-ray again is basically about the same. Labs were all reviewed. WBC count is 4.8 hemoglobin is 7.8F lites are normal renal profile remains marginal with a BUN of 45 creatinine 2.72, relatively about the same compared to the last few days. Patient did receive a dose of Lasix yesterday, and she was placed on updrafts On 08/20/2019 patient seen in follow-up on selective care unit, she is awake and alert, we were able to wean her off the Airvo, and she is currently on 8 L of oxygen and the pulse ox of 99%, and we dropped down the FiO2 down to 6 L and her pulse ox remained at 96%, breathing easier, in no acute distress, hemodynamically stable, she is afebrile. Is on antibiotics in the form of Rocephin and clindamycin for strep group G left knee infection, and E. coli urinary tract infection, sounds are clear to auscultation, no rhonchi or wheezes, no cough or congestion. Yesterday's chest x-ray has been reviewed showing stable left basilar opacity that was felt to be chronic in nature. Clinically stable, ID service is following. No acute events overnight. Objective - Vital Signs Vital signs: Vital Signs Temp 97.7 F 08/20/19 11:58 Pulse 55 L 08/20/19 11:58 Resp 17 08/20/19 11:58 BP 116/56 08/20/19 11:58 Pulse Ox 96 08/20/19 11:58 Intake & Output 08/19/19 08/20/19 08/20/19 18:59 06:59 18:59 Intake Total 1040 220 Output Total 1325 175 Balance -285 220 -175 Intake: IV 320 220 Clindamycin 600 mg In 50 100 Dextrose 5% in Water 50 ml @ 50 mls/hr IVPB Q8H QUINN Rx#:[id number] Sodium Chloride 0.9% 1, 220 20 000 ml @ 20 mls/hr IV . Q24H QUINN Rx#:[id number] ceFAZolin 2 gm In Sodium 50 100 Chloride 0.9% 50 ml @ 100 mls/hr IVPB Q12HR QUINN Rx #:[id number] Oral 720 Output: Urine 1325 175 Other: Voiding Method Indwelling Catheter Indwelling Catheter Bedside Commode Bedpan # Voids 1 2 # Bowel Movements 1 1 - Exam GENERAL EXAM: Alert, very pleasant, 74-year-old white female, currently at 8 L of oxygen with a pulse ox of 99% comfortable in no apparent distress. HEAD: Normocephalic/atraumatic. EYES: Normal reaction of pupils, equal size. Conjunctiva pink, sclera white. NOSE: Clear with pink turbinates. THROAT: No erythema or exudates. NECK: No masses, no JVD, no thyroid enlargement, no adenopathy. CHEST: No chest wall deformity. Symmetrical expansion. LUNGS: Equal air entry with no crackles, wheeze, rhonchi or dullness. CVS: Regular rate and rhythm, normal S1 and S2, no gallops, no murmurs, no rubs ABDOMEN: Soft, nontender. No hepatosplenomegaly, normal bowel sounds, no guarding or rigidity. EXTREMITIES: No clubbing, no edema, no cyanosis, 2+ pulses and upper and lower extremities. Left knee is wrapped with a surgical dressing, with aquacell applied to the wound bed MUSCULOSKELETAL: Muscle strength and tone normal. SPINE: No scoliosis or deformity SKIN: No rashes CENTRAL NERVOUS SYSTEM: Alert and oriented -3. No focal deficits, tone is normal in all 4 extremities. PSYCHIATRIC: Alert and oriented -3. Appropriate affect. Intact judgment and insight. - Labs CBC & Chem 7: 08/19/19 05:44 08/19/19 05:44 Labs: Abnormal Lab Results - Last 24 Hours (Table) 08/19/19 08/19/19 08/20/19 Range/Units 17:25 21:23 06:08 POC Glucose (mg/dL) 137 H 149 H 179 H (75-99) mg/dL 08/20/19 Range/Units 11:33 POC Glucose (mg/dL) 109 H (75-99) mg/dL Assessment and Plan Plan: Assessment: Septic left knee joint, secondary to beta hemolytic strep group G. Acute metabolic encephalopathy and acute mental status change secondary to sepsis. Continues to improve Suspect left lower lobe pneumonia based on chest x-ray, this is most likely streptococcal pneumonia unless proven otherwise. Acute on chronic kidney disease. Acute hypoxic respiratory failure secondary to left lower lobe pneumonia and underlying COPD, improving Type 2 diabetes. Benign essential hypertension. Chronic kidney disease stage IV E. coli urinary tract infection/acute. Plan: Antibiotic per ID service recommendations, patient is afebrile, she has been treated for strep group G left knee infection, and E. coli urinary tract infection, no worsening dyspnea, continue weaning FiO2, currently down to 6 L, chest x-ray showing left basilar opacity that is felt to be chronic in nature, Yesterday we added breathing treatments, continue with DuoNeb 4 times daily and as needed. We'll continue to follow I performed a history & physical examination of the patient and discussed their management with my nurse practitioner, Savanna Smyth. I reviewed the nurse practitioner's note and agree with the documented findings and plan of care. Lung sounds are positive for diminished breath sounds. The findings and the impression was discussed with the patient. I attest to the documentation by the nurse practitioner. Time with Patient: Less than 30
--- NOTE | 2019-08-20 13:27 | P.PN ---
Progress Note - Text Progress Note Date: 08/19/19 Wed 9am, 08/19/19 ORTHO Hx: This is routine ortho rounds for her left knee infection. She is seen in ICU at this time, where she is stable and expected to be transferred to lower level care unit soon. She has had extensive problems with left leg, multiple failed total joints, infections and utlimately a fusion. There is question at this time whether she is septic from this left knee lesion. PE: Exam is performed with full COVID & PPE precautions. The left knee lesion is quite small, benigh and stable. It is crusted, 1-2 cm in diameter, with no abcess, fluctuance or redness. There is no sign of sinus connection with the deeper tissues or bone. There is no indication for any debridement or surgical intervention. IMP: Small anterior wound, left knee, benign. S/P left knee fusion, stable PLAN: This very small crusty lesion is quite benign and has apparently responded well to treatment. There is minimal to no sign of infection and no surgical debridement or intervention is recommended. Further orthopedic input prn. Robert Lara D.O.
[2019-08-20] MEDS: HYDROcodone/APAP 5-325MG 1 EACH TAB PO PRN (17:42)
[2019-08-20] MEDS: ATORVASTATIN 40 MG TAB PO SCH (21:08)
[2019-08-20] MEDS: ASPIRIN 81 MG PO SCH (21:08)
[2019-08-20] MEDS: traZODone HCL 50 MG TAB PO SCH (21:08)
[2019-08-20] MEDS: MIRTAZAPINE 15 MG TAB PO SCH (21:09)
--- NOTE | 2019-08-20 22:54 | PN ---
PROGRESS NOTE DATE OF SERVICE: 08/20/2019 REASON FOR FOLLOWUP: Left knee infection. INTERVAL HISTORY: The patient is currently afebrile. The patient is breathing comfortably. The patient denies having any chest pain or cough. No nausea or vomiting. No abdominal pain or pain to the left knee area. PHYSICAL EXAMINATION: Blood pressure 107/56 with a pulse of 62, temperature of 98.2. She is 99% on 6 L high- flow oxygen. General description is an elderly female lying in bed in no distress. RESPIRATORY SYSTEM: Unlabored breathing with decreased breath sounds at the base. No wheeze. HEART: S1, S2. Regular rate and rhythm. ABDOMEN: Soft. No tenderness. Left knee is dressed up. No obvious drainage on the dressing. LABS: No new labs have been obtained today. 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 The patient has been considered high risk for any surgical procedure and is refusing amputation. Family is aware any antibiotic treatment will be palliative and not curative. Hence they were insisting on IV antibiotic at home. She will be advised Rocephin 2 grams daily for 4 weeks and see clinical response, though I clinically doubt that will be able to completely cover this infection without removal of the infected hardware. I explained in detail to the patient's daughter, who is a nurse. MMBRANDONL / ELIOTN: [id number] /
[2019-08-21] MEDS: CLINDAMYCIN 600 MG in DEXTROSE 5% IN WATER 50 ML IVPB SCH ×4 (02:39→15:31)
[2019-08-21] MEDS: SODIUM CHLORIDE 0.9% 1,000 ML IV SCH (04:16)
[2019-08-21 07:26] LABS: HCT 29.1 % (34.0-46.0); HGB 8.8 gm/dL (11.4-16.0); Hypochromasia Marked; MCH 29.3 pg (25.0-35.0); MCHC 30.3 g/dL (31.0-37.0); MCV 96.6 fL (80.0-100.0); Mean Platelet Volume 8.6; Platelet Count 192 k/uL (150-450); RBC 3.01 m/uL (3.80-5.40); RDW 15.6 % (11.5-15.5); WBC 5.7 k/uL (3.8-10.6)
[2019-08-21 07:31] LABS: Calcium 8.6 mg/dL (8.4-10.2); Potassium 3.8 mmol/L (3.5-5.1)
[2019-08-21] MEDS: INSULIN ASPART (NovoLOG) 100 UNIT/ML VIAL SQ SCH ×2 (07:36→15:30)
[2019-08-21 07:47] LABS: Glucose,Whole Blood 108 mg/dL (75-99)
[2019-08-21 07:47] LABS: Glucose,Whole Blood 127 mg/dL (75-99)
[2019-08-21 08:02] LABS: Glucose,Whole Blood 177 mg/dL (75-99)
[2019-08-21] MEDS: IPRATROPIUM-ALBUTEROL 3 ML NEB INHALATION SCH ×2 (08:08→15:11)
[2019-08-21] MEDS: HEPARIN SODIUM,PORCINE 5,000 UNIT/ML 1 ML VIAL SQ SCH (08:30)
[2019-08-21] MEDS: ASCORBIC ACID 500 MG TAB PO SCH (08:30)
[2019-08-21] MEDS: CHOLECALCIFEROL 1,000 UNIT TAB PO SCH (08:30)
[2019-08-21] MEDS: CARVEDILOL 12.5 MG TAB PO SCH (08:30)
[2019-08-21] MEDS: SERTRALINE 100 MG TAB PO SCH (08:31)
[2019-08-21] MEDS: LOSARTAN 50 MG TAB PO SCH (08:31)
[2019-08-21] MEDS: LEVOTHYROXINE 25 MCG TAB PO SCH (08:31)
[2019-08-21] MEDS: PANTOPRAZOLE 40 MG TABLET PO SCH (08:32)
--- NOTE | 2019-08-21 11:02 | P.NPCON ---
History of Present Illness - Reason for Consult acute renal failure, chronic renal failure - History of Present Illness Reason for consultation: Acute kidney injury on chronic kidney disease History of present illness: Patient is a 74-year-old female seen in renal consultation for acute kidney injury on chronic kidney disease. Patient had chronic kidney disease stage III with baseline creatinine near 1.3 most likely secondary to diabetic kidney disease. However recently her renal function seems to have deteriorated and she is currently CKD stage IV with baseline creatinine in the range of 2.4-2.8. Renal function this admission has been fairly stable although she had developed mild acute kidney injury due to infection now improved. Patient has an atrophic left kidney without any evidence of hydronephrosis. She denies use of nonsteroidals. She presented to the hospital on 08/12/2019 with left knee pain. She's currently on IV antibiotics for the knee infection with underlying infected hardware. She is refusing amputation and is also considered high risk for surgical procedure. She is also being treated for UTI. Urine cultures positive for E. coli. She has been voiding. Denies hematuria or dysuria. No vomiting or diarrhea. Oral intake is fair. Hemodynamically stable. Vital signs are stable. General: The patient appeared well nourished and normally developed. HEENT: Head exam is unremarkable. Neck is without jugular venous distension. LUNGS: Lungs are clear to auscultation and percussion. Breath sounds decreased. HEART: Rate and Rhythm are regular. First and second heart sounds normal. No murmurs, rubs or gallops. ABDOMEN: Nontender, nondistended. EXTREMITITES: No clubbing, cyanosis, or edema. Left knee wrapped. No drainage noted. Past Medical History Past Medical History: COPD, Diabetes Mellitus, Hyperlipidemia, Hypertension, Pneumonia Additional Past Medical History / Comment(s): Septic arthritis, COPD, diabetes mellitus, hypertension, hyperlipidemia, chronic anxiety, history of smoking, p revious history of UTI History of Any Multi-Drug Resistant Organisms: None Reported Past Surgical History: Bowel Resection, Hysterectomy, Joint Replacement, Orthopedic Surgery Additional Past Surgical History / Comment(s): colon resection with ileostomy/later reversal, surgery for fx left femur, left knee replacement 07/2018, Past Anesthesia/Blood Transfusion Reactions: No Reported Reaction Past Psychological History: No Psychological Hx Reported Additional Psychological History / Comment(s): . Retired. No recent international travel. No animals in the home. Family in the past owned the [employer] Smoking Status: Current some day smoker Past Alcohol Use History: None Reported Additional Past Alcohol Use History / Comment(s): 2 PPD for 56 years, No illicit drug use or alcohol use. Patient has home oxygen that she uses at nighttime only. Patient is a smoker of about 5 per day Past Drug Use History: None Reported - Past Family History Mother Additional Family Medical History / Comment(s): heart problems passed around 82 Father Family Medical History: Cancer Additional Family Medical History / Comment(s): lung ca passed at 84 Sister(s) Family Medical History: Cancer Additional Family Medical History / Comment(s): leukemia Daughter(s) Additional Family Medical History / Comment(s): Two adult daughters with no major medical problems Medications and Allergies Home Medications Medication Instructions Recorded Confirmed Type Aspirin EC [Ecotrin Low Dose] 81 mg PO HS 10/21/18 08/13/19 History Levothyroxine Sodium 25 mcg PO DAILY 08/13/19 08/13/19 History Sertraline [Zoloft] 100 mg PO DAILY 08/13/19 08/13/19 History Vit C/E/Zn/Coppr/Lutein/Zeaxan 1 cap PO BID 08/13/19 08/13/19 History [Preservision Areds 2 Softgel] glipiZIDE XL [Glucotrol XL] 5 mg PO DAILY 08/13/19 08/13/19 History traZODone HCL 150 mg PO HS 08/13/19 08/13/19 History cefTRIAXone [Rocephin] 2 gm IVPB Q24H #28 bag 08/20/19 Rx Ascorbic Acid [Vitamin C] 500 mg PO MoWeFr@0900 tab 08/21/19 Rx Atorvastatin [Lipitor] 20 mg PO HS #30 tab 08/21/19 Rx Carvedilol [Coreg] 25 mg PO BID #60 tablet 08/21/19 Rx Cholecalciferol [Vitamin D3 (25 2,000 unit PO DAILY tab 08/21/19 Rx Mcg = 1000 Iu)] HYDROcodone/APAP 5-325MG [[place] 1 each PO Q6HR PRN #12 tab 08/21/19 Rx 5-325] Ipratropium-Albuterol Nebulize 3 ml INHALATION RT-TID #90 dose 08/21/19 Rx [Duoneb 0.5 mg-3 mg/3 ml Soln] Losartan [Cozaar] 50 mg PO DAILY #30 tab 08/21/19 Rx Mirtazapine [Remeron] 7.5 mg PO HS #30 tab 08/21/19 Rx Allergies Allergy/AdvReac Type Severity Reaction Status Date / Time vancomycin Allergy Itching Verified 08/13/19 08:27 Physical Exam Vitals: Vital Signs Temp Pulse Pulse Resp BP Pulse Ox 08/21/19 08:17 94 08/21/19 08:05 80 08/21/19 05:24 98.3 F 73 18 130/68 95 08/20/19 21:22 98.2 F 59 L 18 107/56 99 08/20/19 20:32 62 08/20/19 20:20 64 94 L 08/20/19 11:58 97.7 F 55 L 17 116/56 96 08/20/19 11:32 54 L 18 08/20/19 11:08 60 08/20/19 10:58 56 L Intake and Output 08/20/19 08/21/19 08/21/19 22:59 06:59 14:59 Intake Total 720 Output Total 175 Balance 545 Intake: Oral 720 Output: Urine 175 Other: # Voids 2 Results - Lab Results Most recent lab results ABG pH 7.42 (7.35-7.45) 08/16/19 22:44 ABG pCO2 35 mmHg (35-45) 08/16/19 22:44 ABG pO2 51 mmHg (83-108) L* 08/16/19 22:44 ABG HCO3 23 mmol/L (21-25) 08/16/19 22:44 ABG O2 Saturation 85.3 % (94-97) L 08/16/19 22:44 Calcium 8.6 mg/dL (8.4-10.2) 08/21/19 06:30 Phosphorus 3.7 mg/dL (2.5-4.5) 08/18/19 07:35 Magnesium 2.0 mg/dL (1.6-2.3) 08/18/19 07:35 08/21/19 06:30 08/21/19 06:30 Assessment and Plan Plan: Assessment: 1. Acute kidney injury mostly prerenal secondary to hypotension and infection. Improved. 2. Chronic kidney disease stage IV with baseline creatinine in the range of 2.4-2.8 secondary to diabetic kidney disease. 3. E. coli UTI maintained on antibiotics. 4. Left knee infection with underlying hardware maintained on IV antibiotics. Orthopedic surgery and infectious disease following. 5. Hypertension with chronic kidney disease. Controlled. Plan: Okay to proceed with PICC line insertion in the dominant arm. Antibiotics per infectious disease. Avoid nephrotoxins. Thank you for the consultation. I will continue to follow this patient with you during her hospital stay.
[2019-08-21 11:09] LABS: Glucose,Whole Blood 147 mg/dL (75-99)
[2019-08-21] MEDS ORDERED: LIDOCAINE 1% INJ 10MG/ML (20 ML MDV) SQ ONE (11:29)
--- NOTE | 2019-08-21 12:10 | P.DS ---
Providers Date of admission: 08/12/19 23:12 Expected date of discharge: 08/21/19 Attending physician: Pastora Frazier Consults: 08/13/19 06:16 Consult Physician Routine Consulting Provider: Beth Amaya Consult Reason/Comments: Infected knee Do you want consulting provider notified?: Yes 08/13/19 08:06 Consult Physician Routine Consulting Provider: Vincenzo Lara Consult Reason/Comments: infected knee Do you want consulting provider notified?: Already Contacted 08/14/19 11:02 Consult Physician Routine Consulting Provider: Vignesh Harrison Consult Reason/Comments: vascualr wound assessment Do you want consulting provider notified?: Yes 08/16/19 09:28 Consult Physician Routine Consulting Provider: Hernesto Mukherjee Consult Reason/Comments: ICU management Do you want consulting provider notified?: Yes 08/21/19 10:05 Consult Physician Routine Consulting Provider: Filippo Osorio Consult Reason/Comments: EDILIA, PICC Do you want consulting provider notified?: Yes Primary care physician: Pastora Frazier Hospital Course: This is a 74-year-old female patient of Dr. Frazier with past history for COPD, diabetes mellitus type 2 insulin requiring, hypertension, hyperlipidemia, generalized osteoarthritis, generalized anxiety disorder, AAA. Patient has history of osteoarthritis and under the care of Dr. Lara status post left total knee arthroplasty last July. Subsequently, she was readmitted and underwent patellar retinaculum and quadriceps tendon repair. She was readmitted in September for surgical wound ulceration eschar with flap necrosis and underwent I&D was follow-up with Dr. Martinez. Patient presented to the emergency department with chief complaint of left knee pain worsening over the last 2 days, patient arrived via EMS with temperature of 100.0 left knee with hardware visible with purulent drainage noted. Patient received a dose of Zosyn and Vanco in the emergency room and is now on Cefepime IV. We will continue IV hydration. Consults for Dr. Amaya and Dr. Lara are in place. Blood urine and wound cultures have been done. Patient does have history of Pseudomonas and left knee in October. Patient will be admitted to the hospital. 08/13: Patient found this morning with a team called, patient was restless in bed. Blood sugar was 57 and amp of dextrose was given. D5 0.9 IV fluids started. Will attempt to better control pain with Dilaudid and [place] when necessary. 1 dose of Valium given. Labs were reviewed hemoglobin 9.3 BUN 54 creatinine 2.61 lactic acid 2.9, ESR 116. Vital signs are stable, patient remains afebrile blood pressure 143/63 heart rate 66 pulse ox 93% on room air. We will consult Dr. Harrison for evaluation of left knee. Patient is known to him in the past. Orthopedics plan to exhaust conservative treatment options at this time per family request, there are not any indications for surgical irrigation and debridement at this time. Wound care is currently following patient. 08/14: Patient is doing better this morning seen awake and alert eating breakfast. Left knee culture was positive for beta hemolytic strep group G and followed by Dr. Amaya at this point. Remains on IV Cefepime. Had discussion with daughter Bria plan for IV antibiotics and conservative measures at this time. No invasive procedures, we will do trial of IV antibiotics as outpatient, daughter wants patient to return home. She is a nurse and is able to care for her. Vital signs remained stable, patient is afebrile, heart rate 67 blood pressure 93/43 pulse ox 94% on room air. Acute on chronic renal failure BUN was 61 creatinine was 2.99 this morning hemoglobin stable at 8.9 liver enzymes trending down AST 49 ALTs 49. 08/15: Patient seen this morning lying in bed. She appears to be short of breath and more confused. We will discontinue morphine IV, and give patient 1 dose 40 mg IV Lasix. Vital signs have been stable, she is afebrile, heart also 82, pressure 127/61, pulse ox 97% on room air. Labs were reviewed, hemoglobin 8.4, sodium 142, potassium 5.2, chloride 118, CO2 15, BUN 57, creatinine 3.04 for enzymes are trending down AST is 38 ALTs 38. Plan for no invasive procedures of left knee continue with IV antibiotics daughter has expressed she does not want any surgeries at this time. Urine cultures were positive for E. coli patient's currently cefazolin. Will repeat labs in the morning. 08/16: Patient is laying down in bed does not appear to be in acute distress she continues to be on airflow, she appears to be not following commands, she appears congested and oriented and she was taken off her IV fluid and she did receive a dose of Lasix, she continues to be on IV antibiotic in the form of cefepime and clindamycin, and infectious disease are following as well as vascular surgery, patient and her daughter have refused any amputation even though recommended by vascular surgery.patient has been afebrile, heart rate 75, blood pressure 105/61, pulse ox is 97% on Airvo at FiO2 of 60%.hemoglobin stable at 7.9, normal white count. BUN 15 creatinine 2.7. Blood sugars have been running between 129 and 244. patient continued on NovoLog scale. Alkaline phosphatase 265. 08/17: Patient remains in the intensive care unit. She is still on Airvo decreased FiO2 of 40%. She is pulse ox staying 92%. She has been afebrile, heart rate 80, blood pressure 136/62. This morning, patient is awake alert and oriented 3. She does not have memory of yesterday about can answer all questions appropriately. She denies having any headache. No nausea. No pain in her left knee. Repeat blood work reveals hemoglobin of 7.1 and patient will be transfused 1 unit of packed RBCs. Sodium 142, potassium 3.3 and has been replaced, chloride 105, CO2 29, BUN 44 and creatinine 2.7. Blood sugars running between 170s and 181. Repeat chest x-ray reveals stable interstitial change, possible underlying COPD. Retrocardiac/left basilar infiltrate remains. Discussed option of amputation with the patient and she is adamant that she does not want to have an amputation. She is okay with having IV antibiotics. Patient has cleared for phone call to her daughter to provide information. Cody roper's daughter will be contacted after rounds today and updated. 08/18: patient remains in the intensive care unit. She is currently on Airvo with decreased FiO2 of 30%. She is pulse ox 95%. Heart rate 57, blood pressure 133/61. WBC 4.8, hemoglobin 7.8, platelet count 176. Electrolytes normal, BUN 45 and creatinine 2.72. Blood sugars running between 92-153. chest x-ray reveals patchy diffuse infiltrate greater on the left and greater at the left base. Findings appear stable Patient has been cleared for [facility] floor today. Lasix IV 1 ordered for this morning. PICC line has been orderedand triple-lumen to be discontinued. Patient states that she is not eating very much and not sleeping well. Shaquille added. 08/19: Yesterday, patient was transferred to cardiac stepdown unit. She is now on nasal cannula 6 L and pulse oxing 95%, she has been afebrile, heart rate 54, blood pressure 101/61. Blood sugars are running between 130s 779. Patient mood appears to be good today. She is anxious to be discharged home. Dr. Valladares advises that once she gets to 4 L nasal cannula, patient is okay to go home. Communication out to Dr. Amaya for antibiotic recommendations. Patient does have a PICC in place. employee relations manager is following closely for home IV antibiotic arrangements. Anticipate possible discharge in the next 24-48 hours. 08/20: Patient had some confusion yesterday and upgoing PICC line out. Patient is not quite sure what happened but she was using a walker at the time. A repeat PICC order has been placed and nephrology has been consulted to clear the patient for PICC line insertion. Hemoglobin today is 8.8, BUN 30 and creatinine 2.68. Patient has been afebrile, heart rate 73, blood pressure 130/68, pulse ox 95% on 6 L nasal cannula. At the time of this evaluation, patient is on 5 L. Nursing will obtain pulse ox on 5 L and also check patient on 4 L. The patient is cleared by Dr. Orellana, patient will be discharged home later today. Home IV antibiotics have been arranged. Discharge diagnoses: 1. 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 2. Acute septic metabolic encephalopathy, resolved. 3. Possible left lower lobe pneumonia. 4. Acute hypoxic respiratory failure. 5. Acute E. coli UTI, present on admission. 6. Sepsis, present on admission, secondary to combination of septic left knee arthroplasty, UTI and pneumonia. 7. Diabetes mellitus type 2, stable sliding scale with meals 8. Acute septic metabolic encephalopathy, resolved. 9. Hypertension. 10. Hyperlipidemia. 11. Generalized anxiety disorder. 12. History of bowel resection, stable. 13. Tobacco use and dependence. 14. Acute pain. continue Tylenol as needed. 15. Lactic acidosis. 16. Stage V chronic kidney disease with acute tubular necrosis. 17. Anemia of chronic disease. 18. COVID-19 ruled out. Discharge plan: home with [facility] and IV antibiotics via PICC line. Impression and plan of care have been directed as dictated by the signing physician. Annie Ba nurse practitioner acting as scribe for signing physician. Patient Condition at Discharge: Good Plan - Discharge Summary Discharge Rx Participant: No New Discharge Prescriptions: New cefTRIAXone [Rocephin] 2 gm IVPB Q24H #28 bag Carvedilol [Coreg] 25 mg PO BID #60 tablet Losartan [Cozaar] 50 mg PO DAILY #30 tab Ipratropium-Albuterol Nebulize [Duoneb 0.5 mg-3 mg/3 ml Soln] 3 ml INHALATION RT-TID #90 dose Atorvastatin [Lipitor] 20 mg PO HS #30 tab HYDROcodone/APAP 5-325MG [[place] 5-325] 1 each PO Q6HR PRN #12 tab PRN Reason: Pain Mirtazapine [Remeron] 7.5 mg PO HS #30 tab Ascorbic Acid [Vitamin C] 500 mg PO MoWeFr@0900 tab Cholecalciferol [Vitamin D3 (25 Mcg = 1000 Iu)] 2,000 unit PO DAILY tab Continue Aspirin EC [Ecotrin Low Dose] 81 mg PO HS traZODone HCL 150 mg PO HS glipiZIDE XL [Glucotrol XL] 5 mg PO DAILY Sertraline [Zoloft] 100 mg PO DAILY Levothyroxine Sodium 25 mcg PO DAILY Vit C/E/Zn/Coppr/Lutein/Zeaxan [Preservision Areds 2 Softgel] 1 cap PO BID Discharge Medication List Aspirin EC [Ecotrin Low Dose] 81 mg PO HS 10/21/18 [History] Levothyroxine Sodium 25 mcg PO DAILY 08/13/19 [History] Sertraline [Zoloft] 100 mg PO DAILY 08/13/19 [History] Vit C/E/Zn/Coppr/Lutein/Zeaxan [Preservision Areds 2 Softgel] 1 cap PO BID 08/13/19 [History] glipiZIDE XL [Glucotrol XL] 5 mg PO DAILY 08/13/19 [History] traZODone HCL 150 mg PO HS 08/13/19 [History] cefTRIAXone [Rocephin] 2 gm IVPB Q24H #28 bag 08/20/19 [Rx] Ascorbic Acid [Vitamin C] 500 mg PO MoWeFr@0900 tab 08/21/19 [Rx] Atorvastatin [Lipitor] 20 mg PO HS #30 tab 08/21/19 [Rx] Carvedilol [Coreg] 25 mg PO BID #60 tablet 08/21/19 [Rx] Cholecalciferol [Vitamin D3 (25 Mcg = 1000 Iu)] 2,000 unit PO DAILY tab 08/21/19 [Rx] HYDROcodone/APAP 5-325MG [[place] 5-325] 1 each PO Q6HR PRN #12 tab 08/21/19 [Rx] Ipratropium-Albuterol Nebulize [Duoneb 0.5 mg-3 mg/3 ml Soln] 3 ml INHALATION RT-TID #90 dose 08/21/19 [Rx] Losartan [Cozaar] 50 mg PO DAILY #30 tab 08/21/19 [Rx] Mirtazapine [Remeron] 7.5 mg PO HS #30 tab 08/21/19 [Rx] Follow up Appointment(s)/Referral(s): Pastora Frazier MD [Primary Care Provider] - 1-2 days [facility], [NON-STAFF] - As Needed Ambulatory/Diagnostic Orders: Basic Metabolic Panel [LAB.AMB] Location: None Selected C Reactive Protein [LAB.AMB] Location: None Selected Complete Blood Count w/diff [LAB.AMB] Location: None Selected Erythrocyte Sedimentation Rate [LAB.AMB] Location: None Selected Discharge Disposition: HOME WITH HOME HEALTH SERVICES
--- NOTE | 2019-08-21 12:30 | P.PN ---
Subjective Progress Note Date: 08/21/19 Principal diagnosis: Septic knee Patient is a very pleasant 74-year-old female who was transferred to the intensive care unit as the patient was found to be quite short of breath and progressively more confused by the primary care physician team. The patient is a very complicated history of a septic joint involving the left knee. The patient was hospitalized for ongoing infection. The patient was being treated with broad-spectrum antibiotics as the patient was found to have a beta hemolytic strep group G from the left knee cultures. Infectious disease was also involved in the case and the patient was covered with appropriate antibiotics. Nevertheless, this morning, the patient was found to be quite restless, lethargic, confused, restless in bed, having tachypnea. At that point, a chest x-ray was done that showed no acute abnormalities. There was some limited infiltration of the left lung base consistent with a left lower lobe pneumonia. The blood work showed an acute on chronic kidney failure with a creatinine being up to 3.04. The patient also developed an anion gap metabolic acidosis. Lactic acid level earlier was nonelevated. A blood gas was done that showed a pH of 7.27 with a pCO2 of 30 and pO2 of 53. White cell count from this morning was 5.6 and hemoglobin was at 8.4. Accordingly, the patient got transferred to the intensive care unit. Noted this blood gases was done and FiO2 of 32%. In terms of her knee, this patient has a extensive history in regards to her left knee. Patient states approximately she began to experience increased pain at the left knee. She denies any injuries. She is unable to flex the left knee, which is chronic following her most recent surgical intervention. Since her admission she has been started on Cefepime. It appears the patient had received 1 dose of vancomycin and 1 dose of Zosyn. Patient states since her admission she's had 95% improvement of her left knee pain. Patient is known to have undergone a left total knee arthroplasty on 08/05/[address] Gaspar at [facility]. Post operatively she was readmitted and underwent further surgical intervention for a patellar retinaculum and quadriceps tendon repair performed on 09/09/2017. She was seen and examined by orthopedics on 09/25/2018 and underwent incision and drainage of the left knee performed by Dr. Vincenzo Lara on 09/26/2018. During surgical intervention she was found have significant soft tissue loss which may have required further skin grafting or even muscle flap. Patient was seen by Dr. Harrison vascular surgery. Patient was transferred for further surgical intervention. Patient subsequently und erwent further significant surgery at her left knee in which previous total knee arthroplasty hardware was removed and a femoral tibial david and apparent antibiotic interbody spacer was placed. Patient stated she's had significant difficulty with wound healing since that surgery in the summer. She continued to have an open wound over the left anterior knee which would be superior to the patella. She states she has continued to work with wound care. She feels overall her wound has had significant improvement following surgical intervention in the summer. Previous dictation states the patient's family would like to exhaust conservative treatment options and would like to co ntinue with IV antibiotics while avoiding any surgical intervention. Patient states at the bedside she elected to continue with conservative nonoperative treatments as well. Patient does have a significant medical history which includes smoker, COPD, diabetes mellitus, hyperlipidemia, hypertension, and is currently being treated for urinary tract infection. . Patient was reevaluated today on 08/17/19, remains in the ICU, presently on high flow airvo at 45 L/m, FiO2 of 60%, and her O2 saturation is 97%. Patient is confused I'm history she has some underlying dementia. Patient is on IV fluid at 20 mL per hour, and she is also on bicarb drip which I have discontinued today. Chest x-ray is suspicious for left lower lobe pneumonia, and the patient is on antibiotics for left knee septic arthritis, and presumptive left lower lobe pneumonia secondary to beta streptococcus. And there is also evidence of E. coli urinary tract infection. Antibiotics [place], the patient is on cefazolin, clindamycin, as per infectious disease on the case. Patient is hemodynamically stable, and I was able to cut down her FiO2 to 40%, and I recommended one dose of Lasix 40 mg IV push to be given 1. IV fluid now is at KVO incentive 1 50 mL per hour. CBC showed WBC count of 5.8 hemoglobin of 7.9. Electrolytes are normal BUN is down to 50 creatinine is a bit higher at 2.70 today Reevaluated today on 08/18/19, patient remains in the intensive care unit, presently on high flow oxygen utilizing airvo with FiO2 of 45%. And 40 L/m flow. We will cut down her FiO2 to 40% since the patient is saturating about 97%. Patient seems to be tachypneic, but not tachycardic, and she seems to be hemodynamically stable. She is being treated for septic joint and for presumptive left lower lobe pneumonia. And she is also being treated for E. coli urinary tract infection. Patient had positive beta hemolytic strep from the left knee joint. Remains on antibiotics. Today I have reviewed the chest x-ray, and I have recommended one dose of Lasix 40 mg 1, I also recommended DuoNeb, and Protonix. Chest x-ray showed mostly retrocardiac opacity in the left lower lobe, underlying COPD, and some mild interstitial changes/chronic. Electrolytes showed low potassium of 3.3 BUN is 44 creatinine 2.70. Patient presented with a creatinine of 2.38 and went as high as 3.04. Reevaluated today on 08/19/19, patient remains in the intensive care unit, presently on high flow airvo at 35 L/m, and FiO2 is 35%. Patient O2 saturation is 94%, patient is doing fairly well, seems to be improving, and breathing much easier compared to yesterday. Reviewed her chest x-ray, it is basically unchanged, and I believe the findings in the left lower lobe are likely chronic. Patient was placed back on [facility], and we have discontinued droplet isolation on this patient. Chest x-ray again is basically about the same. Labs were all reviewed. WBC count is 4.8 hemoglobin is 7.8F lites are normal renal profile remains marginal with a BUN of 45 creatinine 2.72, relatively about the same compared to the last few days. Patient did receive a dose of Lasix yesterday, and she was placed on updrafts On 08/20/2019 patient seen in follow-up on selective care unit, she is awake and alert, we were able to wean her off the Airvo, and she is currently on 8 L of oxygen and the pulse ox of 99%, and we dropped down the FiO2 down to 6 L and her pulse ox remained at 96%, breathing easier, in no acute distress, hemodynamically stable, she is afebrile. Is on antibiotics in the form of Rocephin and clindamycin for strep group G left knee infection, and E. coli urinary tract infection, sounds are clear to auscultation, no rhonchi or wheezes, no cough or congestion. Yesterday's chest x-ray has been reviewed showing stable left basilar opacity that was felt to be chronic in nature. Clinically stable, ID service is following. No acute events overnight. The patient is seen today 08/21/2019 in follow-up on the regular medical floor. She is awake and alert in no acute distress. Sitting up at the bedside. Still requiring 6 L high flow nasal cannula but maintaining O2 saturation the mid to upper 90s. She's been afebrile. Hemodynamically stable. Status post 1 unit of packed red blood cells this admission. Wound culture was positive for beta hemolytic strep group G. Urine culture positive for E. coli. White count 5.7. Hemoglobin 8.8. Sodium 140. Potassium 3.8. Creatinine 2.68. She is currently on clindamycin and ceftriaxone. ID is on the case. PICC line was placed. Objective - Vital Signs Vital signs: Vital Signs Temp 98.3 F 08/21/19 05:24 Pulse 94 08/21/19 08:17 Resp 18 08/21/19 05:24 BP 130/68 08/21/19 05:24 Pulse Ox 95 08/21/19 05:24 Intake & Output 08/20/19 08/21/19 08/21/19 18:59 06:59 18:59 Intake Total 720 Output Total 350 Balance 370 Weight 56.1 kg Intake: Oral 720 Output: Urine 350 Other: Voiding Method Bedside Commode Bedpan # Voids 2 # Bowel Movements 1 - Exam GENERAL EXAM: Alert, very pleasant, 74-year-old female patient, currently at 6 L of oxygen, comfortable in no apparent distress. HEAD: Normocephalic/atraumatic. EYES: Normal reaction of pupils, equal size. Conjunctiva pink, sclera white. NOSE: Clear with pink turbinates. THROAT: No erythema or exudates. NECK: No masses, no JVD, no thyroid enlargement, no adenopathy. CHEST: No chest wall deformity. Symmetrical expansion. LUNGS: Equal air entry with no crackles, wheeze, rhonchi or dullness. CVS: Regular rate and rhythm, normal S1 and S2, no gallops, no murmurs, no rubs ABDOMEN: Soft, nontender. No hepatosplenomegaly, normal bowel sounds, no guarding or rigidity. EXTREMITIES: No clubbing, no edema, no cyanosis, 2+ pulses and upper and lower extremities. Left knee is wrapped with a surgical dressing, with aquacell applied to the wound bed MUSCULOSKELETAL: Muscle strength and tone normal. SPINE: No scoliosis or deformity SKIN: No rashes CENTRAL NERVOUS SYSTEM: No focal deficits, tone is normal in all 4 extremities. PSYCHIATRIC: Alert and oriented -3. Appropriate affect. Intact judgment and insight. - Labs CBC & Chem 7: 08/21/19 06:30 08/21/19 06:30 Labs: Abnormal Lab Results - Last 24 Hours (Table) 08/20/19 08/20/19 08/21/19 Range/Units 17:30 20:32 06:30 RBC 3.01 L (3.80-5.40) m/uL Hgb 8.8 L (11.4-16.0) gm/dL Hct 29.1 L (34.0-46.0) % MCHC 30.3 L (31.0-37.0) g/dL RDW 15.6 H (11.5-15.5) % BUN (7-17) mg/dL Creatinine (0.52-1.04) mg/dL POC Glucose (mg/dL) 177 H 108 H (75-99) mg/dL 08/21/19 08/21/19 08/21/19 Range/Units 06:30 07:25 11:08 RBC (3.80-5.40) m/uL Hgb (11.4-16.0) gm/dL Hct (34.0-46.0) % MCHC (31.0-37.0) g/dL RDW (11.5-15.5) % BUN 40 H (7-17) mg/dL Creatinine 2.68 H (0.52-1.04) mg/dL POC Glucose (mg/dL) 127 H 147 H (75-99) mg/dL Assessment and Plan Assessment: Septic left knee joint, secondary to beta hemolytic strep group G. Acute metabolic encephalopathy and acute mental status change secondary to sepsis. Continues to improve Suspect left lower lobe pneumonia based on chest x-ray, this is most likely streptococcal pneumonia unless proven otherwise. Acute on chronic kidney disease. Acute hypoxic respiratory failure secondary to left lower lobe pneumonia and underlying COPD, improving Type 2 diabetes. Benign essential hypertension. Chronic kidney disease stage IV E. coli urinary tract infection/acute. Plan: The patient was seen and evaluated by Dr. Valladares. She is stable from the pulmonary standpoint. Continue to titrate down the FiO2 as tolerated Continue bronchodilators Plan is for home with home care and IV antibiotics. I, the cosigning physician, performed a history & physical examination of the patient. Lungs sounds are clear, diminished. Maintaining good O2 saturations in the 90s on 6 L high flow nasal cannula. I discussed the assessment and plan of care with my nurse practitioner, Yulisa Garza. I attest to the above note as dictated by her.
[2019-08-21 12:58] VITALS: BP 127/80; RESP 16; TEMP 98.5
[2019-08-21 15:24] VITALS: PULSE 80
--- NOTE | 2019-08-21 16:45 | PN ---
PROGRESS NOTE DATE OF ESR VICE: 08/21/2019 REASON FOR FOLLOWUP: Left knee infection. INTERVAL HISTORY: The patient is currently afebrile, patient is breathing comfortably. Denies having any chest pain or cough. No nausea, vomiting, abdominal pain, or any worsening pain to the left knee area. PHYSICAL EXAMINATION: Blood pressure 127/80 with a pulse of 73, temperature 98.5, she is 96% on 4 L nasal cannula. General description is an elderly female, lying in bed in no distress. RESPIRATORY SYSTEM: Unlabored breathing, clear to auscultation anteriorly. HEART: S1, S2. Regular rate and rhythm. ABDOMEN: Soft, no tenderness. Left knee is currently dressed up. No obvious drainage on the dressing. LABS: Hemoglobin 8.8, white count 5.7, BUN of 40, creatinine is 2.68. 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 Culture with group C strep. The patient is to be high risk for any surgical procedure. She is currently cultured for palliative antibiotic therapy, possibly Rocephin 2 grams daily for 4 weeks and see clinical response and monitor clinical course closely. Overall prognosis remains to be guarded. She is aware that treatment is palliative and not curative. MMODL / IJN: [id number] /
--- NOTE | 2019-08-24 11:34 | IR ---
PICC LINE PLACEMENT: HISTORY: Infection requiring long-term antibiotic therapy PROCEDURE: Ultrasound and fluoroscopic guidance of PICC line placement. COMPLICATIONS: None ANESTHESIA: 1. 1% Lidocaine locally. FINDINGS/TECHNIQUE: The procedure was explained to the patient. The risks, complications, benefits and alternatives were discussed and any questions were answered. Informed consent was obtained. The patient was placed supine on the fluoroscopic table and prepped and draped in the usual sterile fash ion. Utilizing a 21 gauge needle and sonographic and fluoroscopic guidance, access in the right bas ilic vein was achieved and there is placement of a 0.018 guidewire. The vein is patent. A 4-F sheat h was placed over the guidewire. The guidewire and dilator were removed and a 4-F. PICC line was franca giorgio through the sheath with the tip at the level of the SVC. The sheath was removed, the catheter wa s flushed and sutured into position. The patient was stable throughout the procedure and remained st able upon discharge from the Department of Radiology. The vein puncture was patent under ultrasound. A galloway scale image was obtained to document patency of the vein punctured. All elements of the maximal barrier technique were utilized. FLUOROSCOPY TIME: 0.2 minutes and one image submitted IMPRESSION: Successful PICC line placement under ultrasound and fluoroscopic guidance.
== END 2019-08-21 17:50 | disposition home health service (06) | DRG 559 ==
LOC: EC 18:01 → 5NMEDONC 23:12 → 4SSUR 08-13 09:38 → 2SICU 08-16 10:15 → 3SCARD 08-19 19:13 → 5NMEDONC 08-20 11:15
PROVIDERS: ADMIT Internal Medicine; ATTEND Internal Medicine
PROC: 30243N1 Transfusion of Nonautologous Red Blood Cells into Central Vein, Percutaneous Approach (ICD-10-PCS; 2019-08-18)
PROC: 02HV33Z Insertion of Infusion Device into Superior Vena Cava, Percutaneous Approach (ICD-10-PCS; principal; 2019-08-20)
DX: T84.54XA Infection and inflammatory reaction due to internal left knee prosthesis, initial encounter (principal); A40.8 Other streptococcal sepsis; R65.20 Severe sepsis without septic shock; G93.41 Metabolic encephalopathy; J18.9 Pneumonia, unspecified organism; J96.01 Acute respiratory failure with hypoxia; N17.0 Acute kidney failure with tubular necrosis; I12.0 Hypertensive chronic kidney disease with stage 5 chronic kidney disease or end stage renal disease; N18.5 Chronic kidney disease, stage 5; J44.0 Chronic obstructive pulmonary disease with (acute) lower respiratory infection; J44.1 Chronic obstructive pulmonary disease with (acute) exacerbation; N39.0 Urinary tract infection, site not specified; T81.31XA Disruption of external operation (surgical) wound, not elsewhere classified, initial encounter; L97.829 Non-pressure chronic ulcer of other part of left lower leg with unspecified severity; Z20.828 Contact with and (suspected) exposure to other viral communicable diseases; E11.649 Type 2 diabetes mellitus with hypoglycemia without coma; D63.8 Anemia in other chronic diseases classified elsewhere; E11.22 Type 2 diabetes mellitus with diabetic chronic kidney disease; E11.622 Type 2 diabetes mellitus with other skin ulcer; F03.90 Unspecified dementia, unspecified severity, without behavioral disturbance, psychotic disturbance, mood disturbance, and anxiety; B96.20 Unspecified Escherichia coli [E. coli] as the cause of diseases classified elsewhere; E78.5 Hyperlipidemia, unspecified; F17.210 Nicotine dependence, cigarettes, uncomplicated; F41.1 Generalized anxiety disorder; M15.9 Polyosteoarthritis, unspecified; I71.4 Abdominal aortic aneurysm, without rupture; R32 Unspecified urinary incontinence; Z79.4 Long term (current) use of insulin; Z79.890 Hormone replacement therapy; Z79.899 Other long term (current) drug therapy; Z79.82 Long term (current) use of aspirin; Z90.710 Acquired absence of both cervix and uterus; Z90.49 Acquired absence of other specified parts of digestive tract; Z88.1 Allergy status to other antibiotic agents; Z87.440 Personal history of urinary (tract) infections; Z87.01 Personal history of pneumonia (recurrent); Z80.1 Family history of malignant neoplasm of trachea, bronchus and lung; Z80.6 Family history of leukemia; Z82.49 Family history of ischemic heart disease and other diseases of the circulatory system; Y83.1 Surgical operation with implant of artificial internal device as the cause of abnormal reaction of the patient, or of later complication, without mention of misadventure at the time of the procedure
CPT/HCPCS: 36410; 36415; 36573; 36600; 71045; 76937; 80048; 80053; 81001; 82728; 82805; 83605; 83615; 83735; 84100; 84132; 84145; 84484; 85025; 85027; 85610; 85652; 85730; 86140; 86850; 86900; 86901; 86920; 87040; 87070; 87077; 87086; 87186; 87205; 87635; 93005; 94640; 94760; 96361; 96365; 96367; 96375; 99285

== ENCOUNTER 2020-02-06 11:38 | Inpatient (IN) | payer MEDICARE ==
[2020-02-06] MEDS ORDERED: SODIUM CHLORIDE 0.9% 1,000 ML IV STA (12:12)
[2020-02-06] MEDS ORDERED: ONDANSETRON 4 MG/2 ML VIAL IVP STA (12:12)
[2020-02-06] MEDS ORDERED: METOCLOPRAMIDE 5 MG/ML 2 ML VIAL IVP STA (12:16)
[2020-02-06] MEDS ORDERED: diphenhydrAMINE 50 MG/ML 1 ML VIAL IVP STA (12:16)
--- NOTE | 2020-02-06 12:21 | ED ---
General Adult HPI - General Chief complaint: Nausea/Vomiting/Diarrhea Stated complaint: NVD Time Seen by Provider: 02/06/20 12:02 Source: patient, EMS Mode of arrival: EMS Limitations: no limitations - History of Present Illness Initial comments: Patient is 74-year-old female presenting to the emergency department with a chief complaint of nausea vomiting. Patient reports she woke up this morning and developed sudden episode of nausea and vomiting 2 episodes of nonbilious and nonbloody vomiting. Patient reports she felt "queasy in the abdomen". Patient reports the nausea has since improved to low there still some feeling present as well. She denies previous abdominal surgeries. Denies any constipation or diarrhea. Denies any urinary or vaginal symptoms. Denies any chest pain shortness of breath or back pain. Denies any headaches, visual changes, one- sided weakness or paresthesias. - Related Data Home Medications Medication Instructions Recorded Confirmed Aspirin EC [Ecotrin Low Dose] 81 mg PO HS 10/21/18 02/06/20 Levothyroxine Sodium 25 mcg PO DAILY 08/13/19 02/06/20 Sertraline [Zoloft] 100 mg PO DAILY 08/13/19 02/06/20 Vit C/E/Zn/Coppr/Lutein/Zeaxan 1 cap PO BID 08/13/19 02/06/20 [Preservision Areds 2 Softgel] glipiZIDE XL [Glucotrol XL] 5 mg PO DAILY 08/13/19 02/06/20 traZODone HCL 150 mg PO HS 08/13/19 02/06/20 Doxycycline Hyclate [Vibramycin] 100 mg PO DAILY 02/06/20 02/06/20 HYDROcodone/APAP 10-325MG [[place] 1 tab PO BID PRN 02/06/20 02/06/20 10-325] Mirtazapine [Remeron] 15 mg PO HS 02/06/20 02/06/20 Allergies Allergy/AdvReac Type Severity Reaction Status Date / Time vancomycin Allergy Itching Verified 02/06/20 15:53 Review of Systems ROS Statement: Those systems with pertinent positive or pertinent negative responses have been documented in the HPI. ROS Other: All systems not noted in ROS Statement are negative. Past Medical History Past Medical History: COPD, Diabetes Mellitus, Hyperlipidemia, Hypertension, Pneumonia Additional Past Medical History / Comment(s): Septic arthritis, COPD, diabetes mellitus, hypertension, hyperlipidemia, chronic anxiety, history of smoking, pre vious history of UTI History of Any Multi-Drug Resistant Organisms: None Reported Past Surgical History: Bowel Resection, Hysterectomy, Joint Replacement, Orthopedic Surgery Additional Past Surgical History / Comment(s): colon resection with ileostomy/later reversal, surgery for fx left femur, left knee replacement 07/2018, Past Anesthesia/Blood Transfusion Reactions: No Reported Reaction Past Psychological History: No Psychological Hx Reported Past Alcohol Use History: None Reported Past Drug Use History: None Reported - Past Family History Mother Additional Family Medical History / Comment(s): heart problems passed around 82 Father Family Medical History: Cancer Additional Family Medical History / Comment(s): lung ca passed at 84 Sister(s) Family Medical History: Cancer Additional Family Medical History / Comment(s): leukemia Daughter(s) Additional Family Medical History / Comment(s): Two adult daughters with no major medical problems General Exam Limitations: no limitations General appearance: alert, in no apparent distress Head exam: Present: atraumatic, normocephalic, normal inspection Eye exam: Present: normal appearance, PERRL, EOMI Pupils: Present: normal accommodation ENT exam: Present: normal exam, normal oropharynx, mucous membranes moist, TM's normal bilaterally, normal external ear exam Neck exam: Present: normal inspection, full ROM. Absent: tenderness Respiratory exam: Present: normal lung sounds bilaterally. Absent: respiratory distress, wheezes, rales Cardiovascular Exam: Present: regular rate, normal rhythm, normal heart sounds GI/Abdominal exam: Present: soft, tenderness (Somewhat diffuse abdominal pain, mostly localized to the Right upper quadrant epigastric abdominal pain.). Absent: distended, guarding, rebound, rigid Extremities exam: Present: normal inspection, full ROM, normal capillary refill. Absent: tenderness Back exam: Present: normal inspection, full ROM. Absent: tenderness, CVA tenderness (R), CVA tenderness (L) Neurological exam: Present: alert, oriented X3 Psychiatric exam: Present: normal affect, normal mood Skin exam: Present: warm, dry, intact, normal color Course Vital Signs 02/06/20 02/06/20 11:40 14:09 Temperature 97.1 F L Pulse Rate 55 L 54 L Respiratory 18 18 Rate Blood Pressure 141/78 141/82 O2 Sat by Pulse 97 97 Oximetry Medical Decision Making - Medical Decision Making patient is 74-year-old female presenting to the emergency department with chief complaint of nausea and vomiting. Physical examination reveals diffuse ab dominal pain, most of located in the epigastric and right upper quadrant region. She slightly bradycardic. EKG reveals sinus rhythm with an occasional SVT. CBC is unremarkable. CMP reveals poor renal function although this appears to be the patient's baseline considering she has chronic kidney disease. She does have elevated lipase of almost 2K. Right upper quadrant ultrasound performed reveals all stones but no signs of cholecystitis. No signs of dilation of the biliary ducts. CT of abdomen and pelvis reveals an inflamed pancreas consistent pancreatitis. Patient will be admitted for further medical management. Nothing by mouth. IV fluids and antiemetics. Case discussed with Admitting is Dr Ayala - Lab Data Result diagrams: 02/06/20 14:25 02/06/20 12:22 Lab Results 02/06/20 02/06/20 02/06/20 Range/Units 12:22 12:22 12:22 WBC (3.8-10.6) k/uL RBC (3.80-5.40) m/uL Hgb (11.4-16.0) gm/dL Hct (34.0-46.0) % MCV (80.0-100.0) fL MCH (25.0-35.0) pg MCHC (31.0-37.0) g/dL RDW (11.5-15.5) % Plt Count (150-450) k/uL Neutrophils % % Lymphocytes % % Monocytes % % Eosinophils % % Basophils % % Neutrophils # (1.3-7.7) k/uL Lymphocytes # (1.0-4.8) k/uL Monocytes # (0-1.0) k/uL Eosinophils # (0-0.7) k/uL Basophils # (0-0.2) k/uL Hypochromasia Anisocytosis Sodium 141 (137-145) mmol/L Potassium 3.4 L (3.5-5.1) mmol/L Chloride 125 H (98-107) mmol/L Carbon Dioxide 12 L (22-30) mmol/L Anion Gap 4 mmol/L BUN 54 H (7-17) mg/dL Creatinine 1.83 H (0.52-1.04) mg/dL Est GFR (CKD-EPI)AfAm 31 (>60 ml/min/1.73 sqM) Est GFR (CKD-EPI)NonAf 27 (>60 ml/min/1.73 sqM) Glucose 77 (74-99) mg/dL Calcium 6.6 L (8.4-10.2) mg/dL Magnesium 1.6 (1.6-2.3) mg/dL Total Bilirubin 0.6 (0.2-1.3) mg/dL AST 33 (14-36) U/L ALT 15 (4-34) U/L Alkaline Phosphatase 92 (38-126) U/L Troponin I <0.012 (0.000-0.034) ng/mL Total Protein 5.1 L (6.3-8.2) g/dL Albumin 2.2 L (3.5-5.0) g/dL Lipase 1982 H (23-300) U/L Urine Color Yellow Urine Appearance Cloudy H (Clear) Urine pH 5.5 (5.0-8.0) Ur Specific [place] 1.020 (1.001-1.035) Urine Protein 1+ H (Negative) Urine Glucose (UA) Negative (Negative) Urine Ketones Negative (Negative) Urine Blood Negative (Negative) Urine Nitrite Positive H (Negative) Urine Bilirubin Negative (Negative) Urine Urobilinogen <2.0 (<2.0) mg/dL Ur Leukocyte Esterase Small H (Negative) Urine RBC 1 (0-5) /hpf Urine WBC 10 H (0-5) /hpf Ur Squamous Epith Cells 2 (0-4) /hpf Urine Bacteria Many H (None) /hpf Hyaline Casts 3 H (0-2) /lpf Urine Mucus Occasional H (None) /hpf 02/05/ Range/Units 14:25 WBC 7.4 (3.8-10.6) k/uL RBC 4.56 (3.80-5.40) m/uL Hgb 13.3 (11.4-16.0) gm/dL Hct 43.2 (34.0-46.0) % MCV 94.7 (80.0-100.0) fL MCH 29.2 (25.0-35.0) pg MCHC 30.9 L (31.0-37.0) g/dL RDW 16.8 H (11.5-15.5) % Plt Count 250 (150-450) k/uL Neutrophils % 83 % Lymphocytes % 14 % Monocytes % 2 % Eosinophils % 0 % Basophils % 0 % Neutrophils # 6.1 (1.3-7.7) k/uL Lymphocytes # 1.0 (1.0-4.8) k/uL Monocytes # 0.2 (0-1.0) k/uL Eosinophils # 0.0 (0-0.7) k/uL Basophils # 0.0 (0-0.2) k/uL Hypochromasia Slight Anisocytosis Slight Sodium (137-145) mmol/L Potassium (3.5-5.1) mmol/L Chloride (98-107) mmol/L Carbon Dioxide (22-30) mmol/L Anion Gap mmol/L BUN (7-17) mg/dL Creatinine (0.52-1.04) mg/dL Est GFR (CKD-EPI)AfAm (>60 ml/min/1.73 sqM) Est GFR (CKD-EPI)NonAf (>60 ml/min/1.73 sqM) Glucose (74-99) mg/dL Calcium (8.4-10.2) mg/dL Magnesium (1.6-2.3) mg/dL Total Bilirubin (0.2-1.3) mg/dL AST (14-36) U/L ALT (4-34) U/L Alkaline Phosphatase (38-126) U/L Troponin I (0.000-0.034) ng/mL Total Protein (6.3-8.2) g/dL Albumin (3.5-5.0) g/dL Lipase (23-300) U/L Urine Color Urine Appearance (Clear) Urine pH (5.0-8.0) Ur Specific [place] (1.001-1.035) Urine Protein (Negative) Urine Glucose (UA) (Negative) Urine Ketones (Negative) Urine Blood (Negative) Urine Nitrite (Negative) Urine Bilirubin (Negative) Urine Urobilinogen (<2.0) mg/dL Ur Leukocyte Esterase (Negative) Urine RBC (0-5) /hpf Urine WBC (0-5) /hpf Ur Squamous Epith Cells (0-4) /hpf Urine Bacteria (None) /hpf Hyaline Casts (0-2) /lpf Urine Mucus (None) /hpf Disposition Clinical Impression: Pancreatitis Disposition: ADMITTED IP TO THIS HOSP Condition: Fair Is patient prescribed a controlled substance at d/c from ED?: No Referrals: Pastora Frazier MD [Primary Care Provider] - 1-2 days Time of Disposition: 17:00
[2020-02-06 13:01] LABS: Albumin 2.2 g/dL (3.5-5.0); Calcium 6.6 mg/dL (8.4-10.2); Total Bilirubin 0.6 mg/dL (0.2-1.3); Total Protein 5.1 g/dL (6.3-8.2)
[2020-02-06 13:06] LABS: Magnesium 1.6 mg/dL (1.6-2.3); Potassium 3.4 mmol/L (3.5-5.1)
[2020-02-06 14:05] LABS: Appearance,Urine Cloudy (Clear); Bacteria,Urine Many /hpf; Bilirubin,Urine Negative (Negative); Blood,Urine Negative (Negative); Color,Urine Yellow; Glucose,Urine (UA) Negative (Negative); Hyaline Casts,Urine 3 /lpf (0-2); Ketones,Urine Negative (Negative); Leukocyte Esterase,Urine Small (Negative); Mucus,Urine Occasional /hpf; Nitrite,Urine Positive (Negative); PH, Urine 5.5 (5.0-8.0); Protein,Urine 1+ (Negative); RBC,Urine 1 /hpf (0-5); Squamous Epithelial Cell,Urine 2 /hpf (0-4); Urobilinogen,Urine <2.0 mg/dL (<2.0); WBC,Urine 10 /hpf (0-5)
[2020-02-06 14:39] LABS: Anisocytosis Slight; Basophils % (A) 0 %; Eosinophils % (A) 0 %; HCT 43.2 % (34.0-46.0); HGB 13.3 gm/dL (11.4-16.0); Hypochromasia Slight; Lymphocytes % (A) 14 %; MCH 29.2 pg (25.0-35.0); MCHC 30.9 g/dL (31.0-37.0); MCV 94.7 fL (80.0-100.0); Mean Platelet Volume 8.1; Monocytes # (A) 0.2 k/uL (0-1.0); Monocytes % (A) 2 %; Neutrophils # (A) 6.1 k/uL (1.3-7.7); Neutrophils % (A) 83 %; Platelet Count 250 k/uL (150-450); RBC 4.56 m/uL (3.80-5.40); RDW 16.8 % (11.5-15.5); WBC 7.4 k/uL (3.8-10.6)
--- NOTE | 2020-02-06 15:14 | US ---
EXAMINATION TYPE: US abdomen limited DATE OF EXAM: 02/06/2020 COMPARISON: US 10/21/18; CT 10/21/18 CLINICAL HISTORY: ruq, lipase 2k. Nausea, vomiting x 3 days; Hx of bowel resection and ileostomy reve rsal EXAM MEASUREMENTS: Liver Length: 15.5 cm Gallbladder Wall: 0.2 cm CBD: 0.3 cm Right Kidney: 8.2 x 3.4 x 3.7 cm Pancreas: Tail obscured by overlying bowel gas Liver: wnl Gallbladder: Few small echognic, shadowing foci seen at dependent portion Evidence for sonographic Mcneill's sign: No CBD: wnl Right Kidney: Cyst upper pole 1.0 x 0.9 x 1.1 cm; No hydronephrosis Known abdominal aortic aneurysm measuring 3.8 x 3.6 x 3.6 cm at proximal portion IMPRESSION: There are a few gallstones. No dilated ducts.. 3.8 cm abdominal aortic aneurysm.
--- NOTE | 2020-02-06 16:42 | CT ---
EXAMINATION TYPE: CT abdomen pelvis wo con DATE OF EXAM: 02/06/2020 COMPARISON: October 21, 2018 HISTORY: Epigastric abdomen pain, poor renal function CT DLP: 299.4 mGycm Automated exposure control for dose reduction was used. Multiple axial sections were obtained from the diaphragm to the floor the pelvis without contrast. FINDINGS: There is some mild scarring at the lung bases. There is no pleural effusion. Heart size is normal. Th oracic aorta is atheromatous. There is 3.6 cm aneurysm of the lower thoracic aorta. There is variable aneurysm and dissection of the entire abdominal aorta. Abdominal aortic aneurysm measures up to 4.8 cm in diameter. There is intact liver spleen stomach. There is no evidence of pancreatic mass. There is some minimal fat stranding around the pancreas. There are calcified gallstones. The bile ducts are not dilated. There is no adrenal mass. Kidneys have normal size. There is no hydronephrosis. There is cortical thi nning lower pole left kidney. There is no retroperitoneal adenopathy. Bladder distends smoothly. Ther e is no inguinal hernia. There is no free fluid in the pelvis. There is no mesenteric edema. There is no ascites or free air. There is no bowel obstruction. There a re sigmoid diverticula. There is no sign of diverticulitis. There is previous bowel surgery. The lumbar vertebra have normal alignment. Posterior elements are intact. Facet joints are intact. Rolf ny pelvis is intact. Hip joints are intact. IMPRESSION: There is thoracic and abdominal aortic aneurysm. 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 Aneurysm not changed in size compared to old exam. Focal atrophy lower pole left kidney unchanged. Cholelithiasis. Sigmoid diverticulosis. Mild inflammatory changes around the pancreas suggestive of acute pancreatitis which is a change comp ared to old exam.
[2020-02-06] MEDS ORDERED: NALOXONE 0.4 MG/ML 1 ML VIAL IV PRN (17:00)
[2020-02-06] MEDS ORDERED: ACETAMINOPHEN TAB 325 MG TAB PO PRN (17:00)
[2020-02-06] MEDS ORDERED: HYDROmorphone 1 MG/ML 1 ML SYRINGE IVP PRN (17:00)
[2020-02-06] MEDS ORDERED: traMADol 50 MG TAB PO PRN (17:00)
[2020-02-06] MEDS ORDERED: ONDANSETRON 4 MG/2 ML VIAL IVP PRN (17:00)
[2020-02-06] MEDS ORDERED: oxyCODONE-APAP 5-325MG 1 EACH TAB PO PRN (17:00)
[2020-02-06] MEDS ORDERED: LORazepam 2 MG/ML INJ IV PRN (17:00)
[2020-02-06] MEDS: SODIUM CHLORIDE 0.9% 1,000 ML IV SCH (17:51)
[2020-02-06] MEDS: MORPHINE SULFATE 4 MG/ML SYRINGE IV PRN (17:51)
[2020-02-06] MEDS: traZODone HCL 100 MG TAB PO SCH (21:13)
[2020-02-06] MEDS: HEPARIN SODIUM,PORCINE 5,000 UNIT/ML 1 ML VIAL SQ SCH (21:13)
[2020-02-06] MEDS: SERTRALINE 100 MG TAB PO SCH (21:14)
[2020-02-06] MEDS: ASPIRIN 81 MG PO SCH (21:14)
[2020-02-06] MEDS: ENALAPRILAT 1.25 MG/ML 1 ML VIAL IVP PRN (21:14)
[2020-02-06] MEDS: MIRTAZAPINE 15 MG TAB PO SCH (21:14)
[2020-02-06] MEDS: VIT A,C & E-LUTEIN-MINERALS 1 EACH TAB PO SCH (22:20)
[2020-02-07] MEDS: MORPHINE SULFATE 4 MG/ML SYRINGE IV PRN (00:48)
[2020-02-07] MEDS: ENALAPRILAT 1.25 MG/ML 1 ML VIAL IVP PRN (02:54)
[2020-02-07] MEDS: LEVOTHYROXINE 25 MCG TAB PO SCH (06:22)
[2020-02-07] MEDS: SODIUM CHLORIDE 0.9% 1,000 ML IV SCH (06:23)
--- NOTE | 2020-02-07 08:14 | P.GSCN ---
History of Present Illness Consult date: 02/07/20 Reason for Consult: Gallstone pancreas History of present illness: This a 74-year-old female admitted to the medical service. Patient was admitted through the emergency room with complaints of abdominal pain. Patient worked up found have evidence of gallstone hepatitis. She is resting bed. She appears to be relatively pain-free. Past Medical History Past Medical History: COPD, Diabetes Mellitus, Hyperlipidemia, Hypertension, Pneumonia Additional Past Medical History / Comment(s): Septic arthritis, COPD, diabetes mellitus, hypertension, hyperlipidemia, chronic anxiety, history of smoking, previous history of UTI History of Any Multi-Drug Resistant Organisms: None Reported Past Surgical History: Bowel Resection, Hysterectomy, Joint Replacement, Orthopedic Surgery Additional Past Surgical History / Comment(s): colon resection with ileostomy/later reversal, surgery for fx left femur, left knee replacement 07/2018, Past Anesthesia/Blood Transfusion Reactions: No Reported Reaction Past Psychological History: No Psychological Hx Reported Additional Psychological History / Comment(s): . Retired. No recent international travel. No animals in the home. Family in the past owned the [employer] Smoking Status: Current every day smoker Past Alcohol Use History: None Reported Additional Past Alcohol Use History / Comment(s): 2 PPD for 56 years, No illicit drug use or alcohol use. Patient has home oxygen that she uses at nighttime only. Patient is a smoker of about 5 per day Past Drug Use History: None Reported - Past Family History Mother Additional Family Medical History / Comment(s): heart problems passed around 82 Father Family Medical History: Cancer Additional Family Medical History / Comment(s): lung ca passed at 84 Sister(s) Family Medical History: Cancer Additional Family Medical History / Comment(s): leukemia Daughter(s) Additional Family Medical History / Comment(s): Two adult daughters with no major medical problems Medications and Allergies Home Medications Medication Instructions Recorded Confirmed Type Aspirin EC [Ecotrin Low Dose] 81 mg PO HS 10/21/18 02/06/20 History Levothyroxine Sodium 25 mcg PO DAILY 08/13/19 02/06/20 History Sertraline [Zoloft] 100 mg PO DAILY 08/13/19 02/06/20 History Vit C/E/Zn/Coppr/Lutein/Zeaxan 1 cap PO BID 08/13/19 02/06/20 History [Preservision Areds 2 Softgel] glipiZIDE XL [Glucotrol XL] 5 mg PO DAILY 08/13/19 02/06/20 History traZODone HCL 150 mg PO HS 08/13/19 02/06/20 History Doxycycline Hyclate [Vibramycin] 100 mg PO DAILY 02/06/20 02/06/20 History HYDROcodone/APAP 10-325MG [[place] 1 tab PO BID PRN 02/06/20 02/06/20 History 10-325] Mirtazapine [Remeron] 15 mg PO HS 02/06/20 02/06/20 History Allergies Allergy/AdvReac Type Severity Reaction Status Date / Time vancomycin Allergy Itching Verified 02/06/20 15:53 Surgical - Exam Vital Signs Temp Pulse Resp BP Pulse Ox 97.1 F L 55 L 18 141/78 97 02/06/20 11:40 02/06/20 11:40 02/06/20 11:40 02/06/20 11:40 02/06/20 11:40 - General no distress, cachectic - ENT normal pinna - Neck no masses - Respiratory normal expansion - Cardiovascular Rhythm: regular - Abdomen Mild epigastric tenderness Abdomen: soft Results - Labs 02/06/20 14:25 02/06/20 12:22 Abnormal Lab Results - Last 24 Hours (Table) 02/06/20 02/06/20 02/06/20 Range/Units 12:22 12:22 14:25 MCHC 30.9 L (31.0-37.0) g/dL RDW 16.8 H (11.5-15.5) % Potassium 3.4 L (3.5-5.1) mmol/L Chloride 125 H (98-107) mmol/L Carbon Dioxide 12 L (22-30) mmol/L BUN 54 H (7-17) mg/dL Creatinine 1.83 H (0.52-1.04) mg/dL Calcium 6.6 L (8.4-10.2) mg/dL Total Protein 5.1 L (6.3-8.2) g/dL Albumin 2.2 L (3.5-5.0) g/dL Lipase 1982 H (23-300) U/L Urine Appearance Cloudy H (Clear) Urine Protein 1+ H (Negative) Urine Nitrite Positive H (Negative) Ur Leukocyte Esterase Small H (Negative) Urine WBC 10 H (0-5) /hpf Urine Bacteria Many H (None) /hpf Hyaline Casts 3 H (0-2) /lpf Urine Mucus Occasional H (None) /hpf Diabetes panel 02/06/20 Range/Units 12:22 Sodium 141 (137-145) mmol/L Potassium 3.4 L (3.5-5.1) mmol/L Chloride 125 H (98-107) mmol/L Carbon Dioxide 12 L (22-30) mmol/L BUN 54 H (7-17) mg/dL Creatinine 1.83 H (0.52-1.04) mg/dL Glucose 77 (74-99) mg/dL Calcium 6.6 L (8.4-10.2) mg/dL AST 33 (14-36) U/L ALT 15 (4-34) U/L Alkaline Phosphatase 92 (38-126) U/L Total Protein 5.1 L (6.3-8.2) g/dL Albumin 2.2 L (3.5-5.0) g/dL Calcium panel 02/06/20 Range/Units 12:22 Calcium 6.6 L (8.4-10.2) mg/dL Albumin 2.2 L (3.5-5.0) g/dL Pituitary panel 02/06/20 Range/Units 12:22 Sodium 141 (137-145) mmol/L Potassium 3.4 L (3.5-5.1) mmol/L Chloride 125 H (98-107) mmol/L Carbon Dioxide 12 L (22-30) mmol/L BUN 54 H (7-17) mg/dL Creatinine 1.83 H (0.52-1.04) mg/dL Glucose 77 (74-99) mg/dL Calcium 6.6 L (8.4-10.2) mg/dL Adrenal panel 02/06/20 Range/Units 12:22 Sodium 141 (137-145) mmol/L Potassium 3.4 L (3.5-5.1) mmol/L Chloride 125 H (98-107) mmol/L Carbon Dioxide 12 L (22-30) mmol/L BUN 54 H (7-17) mg/dL Creatinine 1.83 H (0.52-1.04) mg/dL Glucose 77 (74-99) mg/dL Calcium 6.6 L (8.4-10.2) mg/dL Total Bilirubin 0.6 (0.2-1.3) mg/dL AST 33 (14-36) U/L ALT 15 (4-34) U/L Alkaline Phosphatase 92 (38-126) U/L Total Protein 5.1 L (6.3-8.2) g/dL Albumin 2.2 L (3.5-5.0) g/dL Assessment and Plan Assessment: Gallstone pancreatitis. Patient will receive IV fluid hydration. She'll be observed. She will need laparoscopic ostectomy later this admission.
[2020-02-07] MEDS: SERTRALINE 100 MG TAB PO SCH (08:22)
[2020-02-07] MEDS: HEPARIN SODIUM,PORCINE 5,000 UNIT/ML 1 ML VIAL SQ SCH ×2 (08:22→20:07)
[2020-02-07] MEDS: VIT A,C & E-LUTEIN-MINERALS 1 EACH TAB PO SCH ×2 (08:23→20:07)
[2020-02-07] MEDS: PANTOPRAZOLE 40 MG/10 ML VIAL IVP SCH (08:24)
--- NOTE | 2020-02-07 09:19 | P.HPIM ---
History of Present Illness H&P Date: 02/07/20 Chief Complaint: acute pancreatitis This is a 74-year-old female patient of mine with past history for COPD, diabetes mellitus type 2 insulin requiring, hypertension, hyperlipidemia, generalized osteoarthritis, generalized anxiety disorder, AAA. Patient has history of osteoarthritis and under the care of Dr. Lara status post left total knee arthroplasty last July. Subsequently, she was readmitted and underwent patellar retinaculum and quadriceps tendon repair. She was readmitted in September for surgical wound ulceration eschar with flap necrosis and underwent I&D and was last admiited to our hospital on 07/2019 and was seen by ID and Vascular and it was recommended for her to have left AKA but she declined and wanted to continue with conservative management with chroniv oral antibiotics and pain control and she has a great support at home with her daughter and her , patient presented to the emergency department at [facility] yesterday with increased abdominal pain associated with nausea and vomiting she underwent computed tomography scan of the abdomen and pelvis that showed inflammatory changes of the pancreas also she appeared to have a chronic dissection of her aorta with abdominal aortic aneurysm at 3.8 cm, this was followed by ultrasound of the abdomen that showed cholelithiasis without ductal dilatation and stable abdominal aortic aneurysm at 3.8 cm, patient was placed on clear liquid diet started on IV fluid resuscitation was admitted to the hospital for evaluation general surgery consultation as well as GI consultation. Review of Systems Constitutional: Reports anorexia, Reports chronic pain, Reports fatigue, Reports malaise, Reports weakness, Reports weight loss Eyes: denies blurred vision, denies bulging eye, denies decreased vision Ears, nose, mouth and throat: Denies dysphagia, Denies neck lump, Denies sore throat Cardiovascular: Reports decreased exercise tolerance, Reports dyspnea on exertion, Reports shortness of breath, Denies chest pain, Denies lightheadedness, Denies rapid heart beat, Denies syncope Respiratory: Denies congestion, Denies cough with sputum, Denies home oxygen, Denies sleep apnea, Denies snoring, Denies wheezing Gastrointestinal: Reports abdominal pain, Reports bloating, Reports change in bowel habits, Reports dyspepsia, Reports early satiety, Reports heartburn, Reports loss of appetite, Reports nausea, Reports vomiting Genitourinary: Denies dysuria, Denies nocturia Menstruation: Reports postmenopausal Musculoskeletal: Reports gait dysfunction, Reports low back pain, Reports morning stiffness Musculoskeletal: left: knee pain, knee stiffness, knee swelling, absent: ankle pain, ankle stiffness, ankle swelling, elbow pain, elbow stiffness, elbow swelling, foot pain, foot stiffness, foot swelling, hand pain, hand stiffness, hand swelling, hip pain, hip stiffness, hip swelling, shoulder pain, shoulder stiffness, shoulder swelling, wrist pain, wrist stiffness, wrist swelling Integumentary: Denies pruritus, Denies rash Neurological: Denies numbness, Denies weakness Psychiatric: Reports anxiety, Reports depression, Denies sadness/tearfulness, Denies sleep disturbances, Denies suicidal ideation Endocrine: Denies fatigue, Denies weight change Past Medical History Past Medical History: COPD, Diabetes Mellitus, Hyperlipidemia, Hypertension, Pneumonia Additional Past Medical History / Comment(s): Septic arthritis, COPD, diabetes mellitus, hypertension, hyperlipidemia, chronic anxiety, history of smoking, previous history of UTI History of Any Multi-Drug Resistant Organisms: None Reported Past Surgical History: Bowel Resection, Hysterectomy, Joint Replacement, Orthopedic Surgery Additional Past Surgical History / Comment(s): colon resection with ileostom y/later reversal, surgery for fx left femur, left knee replacement 07/2018, Past Anesthesia/Blood Transfusion Reactions: No Reported Reaction Past Psychological History: No Psychological Hx Reported Additional Psychological History / Comment(s): . Retired. No recent international travel. No animals in the home. Family in the past owned the [employer] Smoking Status: Current every day smoker Past Alcohol Use History: None Reported Additional Past Alcohol Use History / Comment(s): 2 PPD for 56 years, No illicit drug use or alcohol use. Patient has home oxygen that she uses at nighttime only. Patient is a smoker of about 5 per day Past Drug Use History: None Reported - Past Family History Mother Additional Family Medical History / Comment(s): heart problems passed around 82 Father Family Medical History: Cancer Additional Family Medical History / Comment(s): lung ca passed at 84 Sister(s) Family Medical History: Cancer Additional Family Medical History / Comment(s): leukemia Daughter(s) Additional Family Medical History / Comment(s): Two adult daughters with no major medical problems Medications and Allergies Home Medications Medication Instructions Recorded Confirmed Type Aspirin EC [Ecotrin Low Dose] 81 mg PO HS 10/21/18 02/06/20 History Levothyroxine Sodium 25 mcg PO DAILY 08/13/19 02/06/20 History Sertraline [Zoloft] 100 mg PO DAILY 08/13/19 02/06/20 History Vit C/E/Zn/Coppr/Lutein/Zeaxan 1 cap PO BID 08/13/19 02/06/20 History [Preservision Areds 2 Softgel] glipiZIDE XL [Glucotrol XL] 5 mg PO DAILY 08/13/19 02/06/20 History traZODone HCL 150 mg PO HS 08/13/19 02/06/20 History Doxycycline Hyclate [Vibramycin] 100 mg PO DAILY 02/06/20 02/06/20 History HYDROcodone/APAP 10-325MG [Greer 1 tab PO BID PRN 02/06/20 02/06/20 History 10-325] Mirtazapine [Remeron] 15 mg PO HS 02/06/20 02/06/20 History Allergies Allergy/AdvReac Type Severity Reaction Status Date / Time vancomycin Allergy Itching Verified 02/06/20 15:53 Physical Exam Vitals: Vital Signs Temp Pulse Pulse Resp BP BP Pulse Ox 02/07/20 07:00 98.3 F 76 16 154/81 100 02/07/20 04:00 16 02/07/20 02:52 171/88 02/07/20 02:20 98.7 F 80 16 95 02/07/20 00:45 16 02/06/20 22:22 151/70 02/06/20 21:05 188/84 02/06/20 20:00 98.2 F 70 16 200/77 95 02/06/20 19:30 16 02/06/20 18:11 97.8 F 95 18 185/80 95 02/06/20 17:56 97.1 F L 72 18 173/80 97 02/06/20 17:54 72 18 173/80 97 02/06/20 14:09 54 L 18 141/82 97 02/06/20 11:40 97.1 F L 55 L 18 141/78 97 Intake and Output 02/06/20 02/07/20 02/07/20 22:59 06:59 14:59 Other: Voiding Method Toilet Diaper # Voids 2 1 Weight 50.802 kg Physical examination: HEENT: Head is atraumatic, normocephalic, pupils were equal round reactive to light and recommendation, extraocular muscle movement were intact, mucous membranes of the mouth are somewhat dry. Neck: Supple, no JVP, decreased carotid upstroke bilaterally. Chest: Decreased breath sounds at bases, few rhonchi, no wheezes, no chest wall tenderness, no intercostal retractions. Heart: First heart sound is depressed, second heart sounds normal, there is systolic ejection murmur 2/6 located in the left sternal border. Abdomen: Soft, moderate tenderness the epigastric area and no rebound or guarding positive bowel sounds. Extremities: No edema, no calf tenderness significant muscle wasting, left knee with a chronic wound with osteomyelitis. Dorsalis pedis +1 bilaterally. Neurologic examination: Patient is awake alert and oriented 3, cranial nerves III-12 appear grossly intact, muscle power were 4 out of 5 in upper extremities and 3 out of 5 in bilateral lower extremities. Results CBC & Chem 7: 02/06/20 14:25 02/06/20 12:22 Labs: Abnormal Lab Results - Last 24 Hours (Table) 02/06/20 02/06/20 02/06/20 Range/Units 12:22 12:22 14:25 MCHC 30.9 L (31.0-37.0) g/dL RDW 16.8 H (11.5-15.5) % Potassium 3.4 L (3.5-5.1) mmol/L Chloride 125 H (98-107) mmol/L Carbon Dioxide 12 L (22-30) mmol/L BUN 54 H (7-17) mg/dL Creatinine 1.83 H (0.52-1.04) mg/dL Calcium 6.6 L (8.4-10.2) mg/dL Total Protein 5.1 L (6.3-8.2) g/dL Albumin 2.2 L (3.5-5.0) g/dL Lipase 1982 H (23-300) U/L Urine Appearance Cloudy H (Clear) Urine Protein 1+ H (Negative) Urine Nitrite Positive H (Negative) Ur Leukocyte Esterase Small H (Negative) Urine WBC 10 H (0-5) /hpf Urine Bacteria Many H (None) /hpf Hyaline Casts 3 H (0-2) /lpf Urine Mucus Occasional H (None) /hpf Thrombosis Risk Factor Assmnt - DVT/VTE Prophylaxis DVT/VTE Prophylaxis: Pharmacologic Prophylaxis ordered, Mechanical Prophylaxis ordered - Choose All That Apply Each Risk Factor Represents 2 Points: Age 61-74 years Thrombosis Risk Factor Assessment Total Risk Factor Score: 2 Thrombosis Risk Factor Assessment Level: Low Risk Assessment and Plan Assessment: Assessment and plan: 1. Acute pancreatitis likely related to cholelithiasis. There is no evidence of any common bile duct stone at this point in time, we'll monitor the patient very closely, keep the patient on clear liquid diet, continue IV fluid resuscitation switch her IV fluid to half-normal saline at 100 mL an hour, GI consultation as well as surgery consultation, continue patient on Zofran 4 mg IV push every 6 hours as needed, continue Protonix 40 mg IV push every 24 hours, we'll monitor the patient amylase and lipase over the next 24 hours, we will continue with conservative treatment. 2. Anion and non-anion gap metabolic acidosis. Change IV fluid to half-normal saline at 100 mL an hour, monitor the patient CMP over the next 24 hours, replace potassium. 3. urinary tract infection with sepsis. Continue IV fluid resuscitation, start Zosyn 3.375 g IV piggyback every 8 hours, check urine culture and blood culture. 4. Acute kidney injury and top of chronic kidney disease stage III. Continue IV fluid resuscitation monitor the patient CMP over the next 24 hours. 5. Accelerated hypertension with history of hypertension and hypertensive cardio vascular disease. Resume the patient Coreg 25 mg orally twice every day as well as losartan 50 mg orally once every day. 6. Diabetes mellitus type 2. Start the patient on sliding scale insulin. Hold off glipizide for now. 7. Hyperlipidemia. Continue patient on Lipitor 20 mg orally once every day. 8. Chronic osteomyelitis of the left knee. Hold off doxycycline for now. 9. Depression. Continue patient on Zoloft 100 mg orally once every day and Remeron 15 mg orally once every day. 10. Chronic aortic dissection with abdominal aortic aneurysm. Stable. 11. Chronic tobacco use and dependence with COPD. Continue patient on DuoNeb 3 mg nebulization 4 times every day, start the patient on nicotine patch 14 mg once every day. 12. Poor appetite with cachexia and moderate to severe protein calorie malnutrition continue with Glucerna twice every day continue with Remeron 15 mg orally at bedtime. 13. Hypothyroidism. we will continue with synthroid 25 mcg orally daily. 14. DVT prophylaxis. Continue patient on heparin 5000 units subcutaneously e very 12 hours for 15. GI prophylaxis. Continue patient on Protonix 40 mg IV push every 24 hours. 16. Admitted to inpatient. Estimate a length of stay 2 midnights. 17. Patient is no code.
[2020-02-07 10:01] LABS: ALT 21 U/L (4-34); AST 34 U/L (14-36); African American GFR (CKD) 21 (>60 ml/min/1.73 sqM); Albumin 3.2 g/dL (3.5-5.0); Albumin/Globulin Ratio 0.8; Alkaline Phosphatase 169 U/L (38-126); Anion Gap 7 mmol/L; Blood Urea Nitrogen 64 mg/dL (7-17); Calcium 9.4 mg/dL (8.4-10.2); Carbon Dioxide 19 mmol/L (22-30); Chloride 116 mmol/L (98-107); Globulin 3.8 g/dL; Glucose 65 mg/dL (74-99); Magnesium 2.2 mg/dL (1.6-2.3); Non-African American GFR(CKD) 18 (>60 ml/min/1.73 sqM); Potassium 4.1 mmol/L (3.5-5.1); Sodium 142 mmol/L (137-145); Total Bilirubin 0.5 mg/dL (0.2-1.3)
[2020-02-07] MEDS: LOSARTAN 50 MG TAB PO SCH (10:06)
[2020-02-07] MEDS: SODIUM CHLORIDE 0.45% 1,000 ML IV SCH ×2 (10:06→20:08)
[2020-02-07 10:08] LABS: Anisocytosis Slight; Basophils # (A) 0.1 k/uL (0-0.2); Basophils % (A) 1 %; Eosinophils % (A) 0 %; HCT 42.1 % (34.0-46.0); HGB 12.9 gm/dL (11.4-16.0); Hypochromasia Moderate; Lymphocytes # (A) 1.6 k/uL (1.0-4.8); Lymphocytes % (A) 15 %; MCH 29.2 pg (25.0-35.0); MCHC 30.7 g/dL (31.0-37.0); MCV 95.1 fL (80.0-100.0); Mean Platelet Volume 8.2; Monocytes # (A) 0.6 k/uL (0-1.0); Monocytes % (A) 6 %; Neutrophils # (A) 8.1 k/uL (1.3-7.7); Neutrophils % (A) 78 %; Platelet Count 214 k/uL (150-450); RBC 4.43 m/uL (3.80-5.40); RDW 16.6 % (11.5-15.5); WBC 10.5 k/uL (3.8-10.6)
[2020-02-07] MEDS: IPRATROPIUM-ALBUTEROL 3 ML NEB INHALATION SCH ×3 (12:08→19:55)
[2020-02-07 12:29] LABS: Glucose,Whole Blood 58 mg/dL (75-99)
[2020-02-07] MEDS: INSULIN ASPART (NovoLOG) 100 UNIT/ML VIAL SQ SCH ×2 (12:36→17:25)
[2020-02-07 12:47] LABS: Glucose,Whole Blood 56 mg/dL (75-99)
[2020-02-07 13:07] LABS: Glucose,Whole Blood 58 mg/dL (75-99)
[2020-02-07 13:33] LABS: Glucose,Whole Blood 65 mg/dL (75-99)
[2020-02-07 13:50] LABS: Glucose,Whole Blood 80 mg/dL (75-99)
[2020-02-07] MEDS: PIPERACILLIN-TAZOBACTAM 3.375 GM in SODIUM CHLORIDE 0.9% 100 ML IVPB SCH ×2 (15:28→23:18)
[2020-02-07] MEDS: carvediloL 12.5 MG TAB PO SCH (16:55)
[2020-02-07 17:00] LABS: Glucose,Whole Blood 112 mg/dL (75-99)
[2020-02-07] MEDS: MIRTAZAPINE 15 MG TAB PO SCH (20:07)
[2020-02-07] MEDS: ASPIRIN 81 MG PO SCH (20:07)
[2020-02-07] MEDS: traZODone HCL 100 MG TAB PO SCH (20:07)
[2020-02-07 20:19] LABS: Glucose,Whole Blood 97 mg/dL (75-99)
[2020-02-07] MEDS: HYDROmorphone 0.5 MG/0.5 ML SYRINGE IVP PRN (22:45)
[2020-02-08 02:21] LABS: Glucose,Whole Blood 79 mg/dL (75-99)
[2020-02-08 06:50] LABS: Glucose,Whole Blood 56 mg/dL (75-99)
[2020-02-08] MEDS: SODIUM CHLORIDE 0.45% 1,000 ML IV SCH ×2 (07:03→16:41)
[2020-02-08] MEDS: LEVOTHYROXINE 25 MCG TAB PO SCH (07:03)
[2020-02-08 07:17] LABS: Glucose,Whole Blood 154 mg/dL (75-99)
[2020-02-08 07:25] LABS: Anisocytosis Slight; Basophils % (A) 0 %; Eosinophils % (A) 1 %; HGB 11.6 gm/dL (11.4-16.0); Hypochromasia Marked; Lymphocytes # (A) 1.3 k/uL (1.0-4.8); Lymphocytes % (A) 15 %; MCH 29.6 pg (25.0-35.0); MCHC 30.7 g/dL (31.0-37.0); MCV 96.4 fL (80.0-100.0); Mean Platelet Volume 8.3; Monocytes # (A) 0.5 k/uL (0-1.0); Monocytes % (A) 5 %; Neutrophils # (A) 6.5 k/uL (1.3-7.7); Neutrophils % (A) 78 %; Platelet Count 158 k/uL (150-450); RBC 3.94 m/uL (3.80-5.40); RDW 16.7 % (11.5-15.5); WBC 8.4 k/uL (3.8-10.6)
[2020-02-08] MEDS: IPRATROPIUM-ALBUTEROL 3 ML NEB INHALATION SCH ×4 (08:15→19:17)
[2020-02-08] MEDS: HYDROcodone/APAP 10-325MG 1 EACH TAB PO PRN ×2 (08:25→21:09)
[2020-02-08] MEDS: carvediloL 12.5 MG TAB PO SCH ×2 (08:25→16:41)
[2020-02-08] MEDS: NICOTINE 14MG/24HR PATCH TRANSDERM SCH (08:26)
[2020-02-08] MEDS: PIPERACILLIN-TAZOBACTAM 3.375 GM in SODIUM CHLORIDE 0.9% 100 ML IVPB SCH ×2 (08:26→21:09)
[2020-02-08] MEDS: HEPARIN SODIUM,PORCINE 5,000 UNIT/ML 1 ML VIAL SQ SCH ×2 (08:26→21:08)
[2020-02-08] MEDS: SERTRALINE 100 MG TAB PO SCH (08:26)
[2020-02-08] MEDS: LOSARTAN 50 MG TAB PO SCH (08:26)
[2020-02-08] MEDS: INSULIN ASPART (NovoLOG) 100 UNIT/ML VIAL SQ SCH ×3 (08:26→16:41)
[2020-02-08] MEDS: ATORVASTATIN 20 MG TAB PO SCH (08:26)
[2020-02-08] MEDS: VIT A,C & E-LUTEIN-MINERALS 1 EACH TAB PO SCH ×2 (08:27→21:08)
[2020-02-08] MEDS: PANTOPRAZOLE 40 MG/10 ML VIAL IVP SCH (08:27)
--- NOTE | 2020-02-08 11:13 | P.PN ---
Subjective Progress Note Date: 02/08/20 CHIEF COMPLAINT: Gallstone pancreatitis HISTORY OF PRESENT ILLNESS: Patient is still reporting right upper quadrant pain. She is having some nausea. She's currently on a clear liquid diet. She did have some hypoglycemia this morning and it was giving juice and mary crackers. Patient is afebrile. CMP and lipase level are pending. WBC 8.4 patient did have some confusion and did require bedside sitter PHYSICAL EXAM: VITAL SIGNS: Reviewed. GENERAL: Well-developed in no acute distress. HEENT: No sclera icterus. Extraocular movements grossly intact. Moist buccal mucosa. Head is atraumatic, normocephalic. ABDOMEN: Soft. Nondistended. right upper quadrant tenderness NEUROLOGIC: Alert and oriented2.And she knew the president was. She did not know that she was in the hospital. Cranial nerves II through XII grossly intact. ASSESSMENT: 1. Gallstone pancreatitis PLAN: -Patient is scheduled for laparoscopic cholecystectomy with Dr. Villalta tomorrow -Nothing by mouth after midnight -Continue to monitor LFTs and lipase Physician [employer] note has been reviewed by physician. Signing provider agrees with the documented findings, assessment, and plan of care. Objective - Vital Signs Vital signs: Vital Signs Temp 97.8 F 02/08/20 07:00 Pulse 68 02/08/20 08:23 Resp 20 02/08/20 08:00 BP 146/68 02/08/20 07:00 Pulse Ox 94 L 02/08/20 07:00 Intake & Output 02/07/20 02/08/20 02/08/20 18:59 06:59 18:59 Intake Total 100 Balance 100 Weight 50.802 kg Intake: Oral 100 Other: Voiding Method Toilet Toilet Toilet Diaper Diaper Diaper # Voids 2 1 - Labs CBC & Chem 7: 02/08/20 06:52 02/07/20 09:26 Labs: Abnormal Lab Results - Last 24 Hours (Table) 02/07/20 02/07/20 02/07/20 Range/Units 12:28 12:44 13:05 MCHC (31.0-37.0) g/dL RDW (11.5-15.5) % POC Glucose (mg/dL) 58 L 56 L 58 L (75-99) mg/dL 02/07/20 02/07/2002/07/20 Range/Units 13:22 16:58 06:49 MCHC (31.0-37.0) g/dL RDW (11.5-15.5) % POC Glucose (mg/dL) 65 L 112 H 56 L (75-99) mg/dL 02/08/20 02/08/20 Range/Units 06:52 07:17 MCHC 30.7 L (31.0-37.0) g/dL RDW 16.7 H (11.5-15.5) % POC Glucose (mg/dL) 154 H (75-99) mg/dL
[2020-02-08 11:20] LABS: Glucose,Whole Blood 74 mg/dL (75-99)
[2020-02-08] MEDS: DEXTROSE 5%-0.9% NACL 1,000 ML IV SCH ×2 (13:24→21:09)
[2020-02-08 13:29] LABS: Hemoglobin A1C 5.6 % (4.0-6.0)
--- NOTE | 2020-02-08 13:54 | P.PN ---
Subjective Progress Note Date: 02/08/20 This is a 74-year-old female patient of mine with past history for COPD, diabetes mellitus type 2 insulin requiring, hypertension, hyperlipidemia, generalized osteoarthritis, generalized anxiety disorder, AAA. Patient has history of osteoarthritis and under the care of Dr. Lara status post left total knee arthroplasty last July. Subsequently, she was readmitted and underwent patellar retinaculum and quadriceps tendon repair. She was readmitted in September for surgical wound ulceration eschar with flap necrosis and underwent I&D and was last admiited to our hospital on 07/2019 and was seen by ID and Vascular and it was recommended for her to have left AKA but she declined and wanted to continue with conservative management with chroniv oral antibiotics and pain control and she has a great support at home with her daughter and her , patient presented to the emergency department at [facility] yesterday with increased abdominal pain associated with nausea and vomiting she underwent computed tomography scan of the abdomen and pelvis that showed inflammatory changes of the pancreas also she appeared to have a chronic dissection of her aorta with abdominal aortic aneurysm at 3.8 cm, this was followed by ultrasound of the abdomen that showed cholelithiasis without ductal dilatation and stable abdominal aortic aneurysm at 3.8 cm, patient was placed on clear liquid diet started on IV fluid resuscitation was admitted to the hospital for evaluation general surgery consultation as well as GI consultation. 02/07: Patient states that she is feeling a little better today, pain is decreased. She has not had a bowel movement today. Patient did have hallucinations during the night and a safety analyst was required. She is oriented 3 and can answer questions appropriately but the time of this evaluation, patient thinks there is a dog in the room. Patient has been seen by Dr. Villalta and plan is for laparoscopic cholecystectomy tomorrow. We will contact the patient's and discuss plan of care. Repeat lipase 247. Blood sugar this morning was 56 and patient was started on a D5 0.9 normal saline fluid. Objective - Vital Signs Vital signs: Vital Signs Temp 97.8 F 02/08/20 07:00 Pulse 72 02/08/20 11:47 Resp 20 02/08/20 08:00 BP 146/68 02/08/20 07:00 Pulse Ox 94 L 02/08/20 07:00 Intake & Output 02/07/20 02/08/20 02/08/20 18:59 06:59 18:59 Intake Total 100 Balance 100 Weight 50.802 kg Intake: Oral 100 Other: Voiding Method Toilet Toilet Toilet Diaper Diaper Diaper # Voids 2 1 - Exam Review of Systems Constitutional: Reports anorexia, Reports chronic pain, Reports fatigue, Reports malaise, Reports weakness, Reports weight loss Eyes: denies blurred vision, denies bulging eye, denies decreased vision Ears, nose, mouth and throat: Denies dysphagia, Denies neck lump, Denies sore throat Cardiovascular: Reports decreased exercise tolerance, Reports dyspnea on exertion, Reports shortness of breath, Denies chest pain, Denies lightheadedness, Denies rapid heart beat, Denies syncope Respiratory: Denies congestion, Denies cough with sputum, Denies home oxygen, Denies sleep apnea, Denies snoring, Denies wheezing Gastrointestinal: Reports abdominal pain, Reports bloating, Reports change in bowel habits, Reports dyspepsia, Reports early satiety, Reports heartburn, Reports loss of appetite, Reports nausea, denies vomiting Genitourinary: Denies dysuria, Denies nocturia Menstruation: Reports postmenopausal Musculoskeletal: Reports gait dysfunction, Reports low back pain, Reports morning stiffness Musculoskeletal: left: knee pain, knee stiffness, knee swelling, absent: ankle pain, ankle stiffness, ankle swelling, elbow pain, elbow stiffness, elbow swelling, foot pain, foot stiffness, foot swelling, hand pain, hand stiffness, hand swelling, hip pain, hip stiffness, hip swelling, shoulder pain, shoulder stiffness, shoulder swelling, wrist pain, wrist stiffness, wrist swelling Integumentary: Denies pruritus, Denies rash Neurological: Denies numbness, Denies weakness Psychiatric: Reports anxiety, Reports depression, reports hallucinations, Denies suicidal ideation Endocrine: Denies fatigue, Denies weight change Physical examination: HEENT: Head is atraumatic, normocephalic, pupils were equal round reactive to light and recommendation, extraocular muscle movement were intact, mucous membra bev of the mouth are somewhat dry. Neck: Supple, no JVP, decreased carotid upstroke bilaterally. Chest: Decreased breath sounds at bases, few rhonchi, no wheezes, no chest wall tenderness, no intercostal retractions. Heart: First heart sound is depressed, second heart sounds normal, there is syst olic ejection murmur 2/6 located in the left sternal border. Abdomen: Soft, moderate tenderness the epigastric area and no rebound or guarding positive bowel sounds. Extremities: No edema, no calf tenderness significant muscle wasting, left knee with a chronic wound with osteomyelitis. Dorsalis pedis +1 bilaterally. Neurologic examination: Patient is awake alert and oriented 3 but having visual hallucinations, cranial nerves III-12 appear grossly intact, muscle power were 4 out of 5 in upper extremities and 3 out of 5 in bilateral lower extremities. - Labs CBC & Chem 7: 02/08/20 06:52 02/07/20 09:26 Labs: Abnormal Lab Results - Last 24 Hours (Table) 02/07/20 02/07/20 02/07/20 Range/Units 12:44 13:05 13:22 MCHC (31.0-37.0) g/dL RDW (11.5-15.5) % POC Glucose (mg/dL) 56 L 58 L 65 L (75-99) mg/dL Lipase (14-63) U/L 02/07/20 02/08/20 02/08/20 Range/Units 16:58 06:49 06:52 MCHC 30.7 L (31.0-37.0) g/dL RDW 16.7 H (11.5-15.5) % POC Glucose (mg/dL) 112 H 56 L (75-99) mg/dL Lipase (14-63) U/L 02/08/20 02/08/20 02/08/20 Range/Units 06:52 07:17 11:18 MCHC (31.0-37.0) g/dL RDW (11.5-15.5) % POC Glucose (mg/dL) 154 H 74 L (75-99) mg/dL Lipase 247 H (14-63) U/L Microbiology - Last 24 Hours (Table) 02/07/20 09:45 Blood Culture - Preliminary Blood No Growth after 24 hours 02/07/20 09:26 Blood Culture - Preliminary Blood No Growth after 24 hours 02/08/20 02:40 Urine Culture - Preliminary Urine,Voided Assessment and Plan Plan: 1. Acute pancreatitis likely related to cholelithiasis. Continue IV fluid resuscitation switch her IV fluid to D5 0.9 normal saline at 100 mL an hour, surgery consultation, continue patient on Zofran 4 mg IV push every 6 hours as needed, continue Protonix 40 mg IV push every 24 hours, we'll monitor the patient amylase and lipase over the next 24 hours, we will continue with conse rvative treatment. Surgery is planning for laparoscopic cholecystectomy. We'll discuss options with family 2. Anion and non-anion gap metabolic acidosis. Monitor the patient CMP over the next 24 hours, replace potassium. 3. urinary tract infection with sepsis. Continue IV fluid resuscitation, start Zosyn 3.375 g IV piggyback every 8 hours, check urine culture and blood culture. 4. Acute kidney injury and top of chronic kidney disease stage III. Continue IV fluid resuscitation monitor the patient CMP over the next 24 hours. 5. Accelerated hypertension with history of hypertension and hypertensive cardio vascular disease. Resume the patient Coreg 25 mg orally twice every day as well as losartan 50 mg orally once every day. 6. Diabetes mellitus type 2 uncontrolled with hypoglycemia. Start the patient on sliding scale insulin. Hold off glipizide for now. IV fluids changed to D5 0.9 normal saline due to hypoglycemia. 7. Hyperlipidemia. Continue patient on Lipitor 20 mg orally once every day. 8. Chronic osteomyelitis of the left knee. Hold off doxycycline for now. 9. Recurrent Depression. Continue patient on Zoloft 100 mg orally once every day and Remeron 15 mg orally once every day. 10. Chronic aortic dissection with abdominal aortic aneurysm. Stable. 11. Chronic tobacco use and dependence with COPD. Continue patient on DuoNeb 3 mg nebulization 4 times every day, start the patient on nicotine patch 14 mg once every day. 12. Poor appetite with cachexia and severe protein calorie malnutrition continue with Glucerna twice every day continue with Remeron 15 mg orally at bedtime. 13. Hypothyroidism. Continue with synthroid 25 mcg orally daily. 14. DVT prophylaxis. Continue patient on heparin 5000 units subcutaneously every 12 hours for 15. GI prophylaxis. Continue patient on Protonix 40 mg IV push every 24 hours. 16. Patient is no code. Discharge plan: Home Impression and plan of care have been directed as dictated by the signing physician. Annie Ba nurse practitioner acting as scribe for signing physician.
[2020-02-08 15:41] LABS: African American GFR (CKD) 26.2 (60.0-200.0); Albumin 2.8 g/dL (3.80-4.90); BUN/Creat Ratio 25.71 Ratio (12.00-20.00); Globulin 2.8 g/dL (1.6-3.3); Non-African American GFR(CKD) 22.6 (60.0-200.0); Potassium 4.5 mmol/L (3.5-5.5); Total Bilirubin 0.4 mg/dL (0.3-1.2); Total Protein 5.6 g/dL (6.2-8.2)
[2020-02-08 16:19] LABS: Glucose,Whole Blood 131 mg/dL (75-99)
[2020-02-08 20:19] LABS: Glucose,Whole Blood 132 mg/dL (75-99)
[2020-02-08] MEDS: ASPIRIN 81 MG PO SCH (21:08)
[2020-02-08] MEDS: MIRTAZAPINE 15 MG TAB PO SCH (21:08)
[2020-02-08] MEDS: traZODone HCL 100 MG TAB PO SCH (21:09)
[2020-02-09] MEDS: SODIUM CHLORIDE 0.45% 1,000 ML IV SCH ×2 (01:00→13:15)
[2020-02-09 02:47] LABS: Glucose,Whole Blood 69 mg/dL (75-99)
[2020-02-09] MEDS ORDERED: DEXTROSE 50% SYRINGE 50 ML IVP ONE ×2 (02:53→07:41)
[2020-02-09] MEDS: LEVOTHYROXINE 25 MCG TAB PO SCH (05:37)
[2020-02-09] MEDS: HYDROcodone/APAP 10-325MG 1 EACH TAB PO PRN (05:37)
[2020-02-09 07:41] LABS: Glucose,Whole Blood 67 mg/dL (75-99)
[2020-02-09] MEDS ORDERED: DEXTROSE 50% SYRINGE 50 ML IVP STA (07:43)
[2020-02-09] MEDS: INSULIN ASPART (NovoLOG) 100 UNIT/ML VIAL SQ SCH ×4 (07:45→20:37)
[2020-02-09 07:57] LABS: Glucose,Whole Blood 133 mg/dL (75-99)
[2020-02-09 08:22] LABS: Anisocytosis Slight; Basophils % (A) 0 %; Eosinophils # (A) 0.1 k/uL (0-0.7); Eosinophils % (A) 2 %; HCT 38.6 % (34.0-46.0); HGB 11.8 gm/dL (11.4-16.0); Hypochromasia Marked; Lymphocytes # (A) 0.7 k/uL (1.0-4.8); Lymphocytes % (A) 10 %; MCH 29.9 pg (25.0-35.0); MCHC 30.5 g/dL (31.0-37.0); MCV 98.2 fL (80.0-100.0); Mean Platelet Volume 9.5; Monocytes # (A) 0.5 k/uL (0-1.0); Monocytes % (A) 7 %; Neutrophils # (A) 5.5 k/uL (1.3-7.7); Neutrophils % (A) 80 %; Platelet Count 115 k/uL (150-450); RBC 3.93 m/uL (3.80-5.40); RDW 16.5 % (11.5-15.5); WBC 6.9 k/uL (3.8-10.6)
[2020-02-09] MEDS: DEXTROSE 5%-0.9% NACL 1,000 ML IV SCH (08:23)
[2020-02-09] MEDS: PIPERACILLIN-TAZOBACTAM 3.375 GM in SODIUM CHLORIDE 0.9% 100 ML IVPB SCH ×2 (08:34→21:15)
[2020-02-09] MEDS: PANTOPRAZOLE 40 MG/10 ML VIAL IVP SCH (08:40)
[2020-02-09] MEDS: carvediloL 12.5 MG TAB PO SCH (08:48)
[2020-02-09] MEDS: IPRATROPIUM-ALBUTEROL 3 ML NEB INHALATION SCH ×4 (09:10→18:46)
[2020-02-09] MEDS: DEXTROSE 5%-0.45% NACL 1,000 ML IV SCH ×3 (09:18→20:36)
[2020-02-09 09:24] LABS: African American GFR (CKD) 26.2 (60.0-200.0); Albumin 2.6 g/dL (3.80-4.90); Albumin/Globulin Ratio 0.96 (1.60-3.17); Anion Gap 7.7 mmol/L (4.00-12.00); BUN/Creat Ratio 22.86 Ratio (12.00-20.00); Calcium 8.1 mg/dL (8.7-10.3); Carbon Dioxide 17.3 mmol/L (21.6-31.8); Globulin 2.7 g/dL (1.6-3.3); Non-African American GFR(CKD) 22.6 (60.0-200.0); Total Bilirubin 0.4 mg/dL (0.2-1.2); Total Protein 5.3 g/dL (6.2-8.2)
[2020-02-09] MEDS ORDERED: IV FLUID CONTINUATION 1,000 ML IV ONE (09:30)
[2020-02-09] MEDS: HEPARIN SODIUM,PORCINE 5,000 UNIT/ML 1 ML VIAL SQ SCH ×3 (09:55→20:37)
--- NOTE | 2020-02-09 09:56 | P.PN ---
Subjective Progress Note Date: 02/09/20 This is a 74-year-old female patient of mine with past history for COPD, diabetes mellitus type 2 insulin requiring, hypertension, hyperlipidemia, generalized osteoarthritis, generalized anxiety disorder, AAA. Patient has history of osteoarthritis and under the care of Dr. Lara status post left total knee arthroplasty last July. Subsequently, she was readmitted and underwent patellar retinaculum and quadriceps tendon repair. She was readmitted in September for surgical wound ulceration eschar with flap necrosis and underwent I&D and was last admiited to our hospital on 07/2019 and was seen by ID and Vascular and it was recommended for her to have left AKA but she declined and wanted to continue with conservative management with chroniv oral antibiotics and pain control and she has a great support at home with her daughter and her , patient presented to the emergency department at [facility] yesterday with increased abdominal pain associated with nausea and vomiting she underwent computed tomography scan of the abdomen and pelvis that showed inflammatory changes of the pancreas also she appeared to have a chronic dissection of her aorta with abdominal aortic aneurysm at 3.8 cm, this was followed by ultrasound of the abdomen that showed cholelithiasis without ductal dilatation and stable abdominal aortic aneurysm at 3.8 cm, patient was placed on clear liquid diet started on IV fluid resuscitation was admitted to the hospital for evaluation general surgery consultation as well as GI consultation. 02/07: Patient states that she is feeling a little better today, pain is decreased. She has not had a bowel movement today. Patient did have hallucinations during the night and a safety deposit boxes custodian was required. She is oriented 3 and can answer questions appropriately but the time of this evaluation, patient thinks there is a dog in the room. Patient has been seen by Dr. Villalta and plan is for laparoscopic cholecystectomy tomorrow. We will contact the patient's and discuss plan of care. Repeat lipase 247. Blood sugar this morning was 56 and patient was started on a D5 0.9 normal saline fluid. 02/08: Patient has been afebrile, heart rate 53, blood pressure 152/65, pulse ox 99% on room air. Repeat CBC reveals WBC 6.9, hemoglobin 11.8, platelet count 115. Sodium 138, potassium 4.0, chloride 113, CO2 17.3, BUN 48 and creatinine 2.1. Blood sugars have been running in the 60s. Alkaline phosphatase 147, total bilirubin 0.4, ALT 28 and AST 43. Yesterday, discussed surgical option with the patient's family. They would like to move forward with this. She is scheduled for laparoscopic cholecystectomy today with Dr. Villalta. Objective - Vital Signs Vital signs: Vital Signs Temp 97.5 F L 02/09/20 09:33 Pulse 53 L 02/09/20 09:33 Resp 18 02/09/20 09:33 BP 152/65 02/09/20 09:33 Pulse Ox 99 02/09/20 09:33 Intake & Output 02/08/20 02/09/20 02/09/20 18:59 06:59 18:59 Intake Total 2200 Balance 2200 Weight 50.802 kg Intake: Intake, IV Titration 1600 Amount Dextrose 5%-0.9% NaCl 1, 1400 000 ml @ 100 mls/hr IV . Q10H QUINN Rx#:[id number] Piperacillin-Tazobactam 3 100 .375 gm In Sodium Chloride 0.9% 100 ml @ 25 mls/hr IVPB Q12HR QUINN Rx #:[id number] Sodium Chloride 0.45% 1, 100 000 ml @ 100 mls/hr IV . Q10H QUINN Rx#:[id number] Oral 600 Other: Voiding Method Toilet Toilet Diaper Diaper # Voids 3 2 - Exam Review of Systems Constitutional: Reports anorexia, Reports chronic pain, Reports fatigue, Reports malaise, Reports weakness, Reports weight loss Eyes: denies blurred vision, denies bulging eye Ears, nose, mouth and throat: Denies dysphagia, Denies neck lump, Denies sore throat Cardiovascular: Reports decreased exercise tolerance, Reports dyspnea on exertion, Reports shortness of breath, Denies chest pain, Denies lightheadedness, Denies rapid heart beat, Denies syncope Respiratory: Denies congestion, Denies cough with sputum, Denies home oxygen, Denies sleep apnea, Denies snoring, Denies wheezing Gastrointestinal: Reports abdominal pain, Reports bloating, Reports change in bowel habits, Reports dyspepsia, Reports early satiety, Reports heartburn, Reports loss of appetite, Reports nausea, denies vomiting Genitourinary: Denies dysuria, Denies nocturia Menstruation: Reports postmenopausal Musculoskeletal: Reports gait dysfunction, Reports low back pain, Reports morning stiffness Musculoskeletal: left: knee pain, knee stiffness, knee swelling, absent: ankle pain, ankle stiffness, ankle swelling, elbow pain, elbow stiffness, elbow swelling, foot pain, foot stiffness, foot swelling, hand pain, hand stiffness, hand swelling, hip pain, hip stiffness, hip swelling, shoulder pain, shoulder stiffness, shoulder swelling, wrist pain, wrist stiffness, wrist swelling Integumentary: Denies pruritus, Denies rash Neurological: Denies numbness, Denies weakness Psychiatric: Reports anxiety, Reports depression, reports hallucinations, Denies suicidal ideation Endocrine: Denies fatigue, Denies weight change Physical examination: GEN: This is a 74-year-old female. She is resting in bed and appears to be comfortable. HEENT: Head is atraumatic, normocephalic, pupils were equal round reactive to light and recommendation, extraocular muscle movement were intact, mucous membr anes of the mouth are somewhat dry. Neck: Supple, no JVP, decreased carotid upstroke bilaterally. Chest: Decreased breath sounds at bases, few rhonchi, no wheezes, no chest wall tenderness, no intercostal retractions. Heart: First heart sound is depressed, second heart sounds normal, there is sys tolic ejection murmur 2/6 located in the left sternal border. Abdomen: Soft, moderate tenderness the epigastric area and no rebound or guarding positive bowel sounds. Extremities: No edema, no calf tenderness significant muscle wasting, left knee with a chronic wound with osteomyelitis. Dorsalis pedis +1 bilaterally. Neurologic examination: Patient is awake alert and oriented 3 but having visual hallucinations, cranial nerves III-12 appear grossly intact, muscle power were 4 out of 5 in upper extremities and 3 out of 5 in bilateral lower extremities. - Labs CBC & Chem 7: 02/09/20 06:03 02/09/20 06:03 Labs: Abnormal Lab Results - Last 24 Hours (Table) 02/08/20 02/08/20 02/08/20 Range/Units 06:52 06:52 11:18 MCHC (31.0-37.0) g/dL RDW (11.5-15.5) % Plt Count (150-450) k/uL Lymphocytes # (1.0-4.8) k/uL Chloride 115 H (96-109) mmol/L Carbon Dioxide 18.0 L (21.6-31.8) mmol/L BUN 54.0 H (9.0-27.0) mg/dL Creatinine 2.1 H (0.6-1.5) mg/dL Est GFR (CKD-EPI)AfAm 26.2 L (60.0-200.0) Est GFR (CKD-EPI)NonAf 22.6 L (60.0-200.0) BUN/Creatinine Ratio 25.71 H (12.00-20.00) Ratio Glucose 33 L* (70-110) mg/dL POC Glucose (mg/dL) 74 L (75-99) mg/dL Calcium (8.7-10.3) mg/dL AST 41 H (13-35) U/L Alkaline Phosphatase 143 H (41-126) U/L Total Protein 5.6 L (6.2-8.2) g/dL Albumin 2.80 L (3.80-4.90) g/dL Albumin/Globulin Ratio 1.00 L (1.60-3.17) g/dL Lipase 247 H (14-63) U/L 02/08/20 02/08/20 02/09/20 Range/Units 16:18 20:18 02:44 MCHC (31.0-37.0) g/dL RDW (11.5-15.5) % Plt Count (150-450) k/uL Lymphocytes # (1.0-4.8) k/uL Chloride (96-109) mmol/L Carbon Dioxide (21.6-31.8) mmol/L BUN (9.0-27.0) mg/dL Creatinine (0.6-1.5) mg/dL Est GFR (CKD-EPI)AfAm (60.0-200.0) Est GFR (CKD-EPI)NonAf (60.0-200.0) BUN/Creatinine Ratio (12.00-20.00) Ratio Glucose (70-110) mg/dL POC Glucose (mg/dL) 131 H 132 H 69 L (75-99) mg/dL Calcium (8.7-10.3) mg/dL AST (13-35) U/L Alkaline Phosphatase (41-126) U/L Total Protein (6.2-8.2) g/dL Albumin (3.80-4.90) g/dL Albumin/Globulin Ratio (1.60-3.17) g/dL Lipase (14-63) U/L 02/09/20 02/09/20 02/09/20 Range/Units 06:03 06:03 07:38 MCHC 30.5 L (31.0-37.0) g/dL RDW 16.5 H (11.5-15.5) % Plt Count 115 L (150-450) k/uL Lymphocytes # 0.7 L (1.0-4.8) k/uL Chloride 113 H (96-109) mmol/L Carbon Dioxide 17.3 L (21.6-31.8) mmol/L BUN 48.0 H (9.0-27.0) mg/dL Creatinine 2.1 H (0.6-1.5) mg/dL Est GFR (CKD-EPI)AfAm 26.2 L (60.0-200.0) Est GFR (CKD-EPI)NonAf 22.6 L (60.0-200.0) BUN/Creatinine Ratio 22.86 H (12.00-20.00) Ratio Glucose 63 L (70-110) mg/dL POC Glucose (mg/dL) 67 L (75-99) mg/dL Calcium 8.1 L (8.7-10.3) mg/dL AST 43 H (13-35) U/L Alkaline Phosphatase 147 H (41-126) U/L Total Protein 5.3 L (6.2-8.2) g/dL Albumin 2.60 L (3.80-4.90) g/dL Albumin/Globulin Ratio 0.96 L (1.60-3.17) g/dL Lipase 68 H (14-63) U/L 02/09/20 Range/Units 07:57 MCHC (31.0-37.0) g/dL RDW (11.5-15.5) % Plt Count (150-450) k/uL Lymphocytes # (1.0-4.8) k/uL Chloride (96-109) mmol/L Carbon Dioxide (21.6-31.8) mmol/L BUN (9.0-27.0) mg/dL Creatinine (0.6-1.5) mg/dL Est GFR (CKD-EPI)AfAm (60.0-200.0) Est GFR (CKD-EPI)NonAf (60.0-200.0) BUN/Creatinine Ratio (12.00-20.00) Ratio Glucose (70-110) mg/dL POC Glucose (mg/dL) 133 H (75-99) mg/dL Calcium (8.7-10.3) mg/dL AST (13-35) U/L Alkaline Phosphatase (41-126) U/L Total Protein (6.2-8.2) g/dL Albumin (3.80-4.90) g/dL Albumin/Globulin Ratio (1.60-3.17) g/dL Lipase (14-63) U/L Microbiology - Last 24 Hours (Table) 02/07/20 09:45 Blood Culture - Preliminary Blood No Growth after 24 hours 02/07/20 09:26 Blood Culture - Preliminary Blood No Growth after 24 hours 02/08/20 02:40 Urine Culture - Preliminary Urine,Voided Assessment and Plan Plan: 1. Acute pancreatitis likely related to cholelithiasis. Continue IV fluid resuscitation switch her IV fluid to D5 0.9 normal saline at 100 mL an hour, surgery consultation, continue patient on Zofran 4 mg IV push every 6 hours as needed, continue Protonix 40 mg IV push every 24 hours, we'll monitor the patient amylase and lipase over the next 24 hours, we will continue with conservative treatment. Surgery is planning for laparoscopic cholecystectomy. We'll discuss options with family 2. Anion and non-anion gap metabolic acidosis. Monitor the patient CMP over the next 24 hours, replace potassium. 3. urinary tract infection with sepsis. Continue IV fluid resuscitation, start Zosyn 3.375 g IV piggyback every 8 hours, check urine culture and blood culture. 4. Acute kidney injury and top of chronic kidney disease stage III. Continue IV fluid resuscitation monitor the patient CMP over the next 24 hours. 5. Accelerated hypertension with history of hypertension and hypertensive cardio vascular disease. Resume the patient Coreg 25 mg orally twice every day as well as losartan 50 mg orally once every day. 6. Diabetes mellitus type 2 uncontrolled with hypoglycemia. Start the patient on sliding scale insulin. Hold off glipizide for now. IV fluids changed to D5 0.9 normal saline due to hypoglycemia. 7. Hyperlipidemia. Continue patient on Lipitor 20 mg orally once every day. 8. Chronic osteomyelitis of the left knee. Hold off doxycycline for now. 9. Recurrent Depression. Continue patient on Zoloft 100 mg orally once every day and Remeron 15 mg orally once every day. 10. Chronic aortic dissection with abdominal aortic aneurysm. Stable. 11. Chronic tobacco use and dependence with COPD. Continue patient on DuoNeb 3 mg nebulization 4 times every day, start the patient on nicotine patch 14 mg once every day. 12. Poor appetite with cachexia and severe protein calorie malnutrition continue with Glucerna twice every day continue with Remeron 15 mg orally at bedtime. 13. Hypothyroidism. Continue with synthroid 25 mcg orally daily. 14. DVT prophylaxis. Continue patient on heparin 5000 units subcutaneously every 12 hours for 15. GI prophylaxis. Continue patient on Protonix 40 mg IV push every 24 hours. 16. Visual hallucinations. Possibly due to combination of medication effect, hospitalization, illness and possible early dementia. Patient is no code. Discharge plan: Home Impression and plan of care have been directed as dictated by the signing physician. Annie Ba nurse practitioner acting as scribe for signing physician.
[2020-02-09] MEDS ORDERED: GLYCOPYRROLATE 0.2 MG/ML 2 ML VIAL ONE (10:09)
[2020-02-09] MEDS ORDERED: ROCURONIUM 10 MG/ML (10 ML VIAL) IV ONE (10:09)
[2020-02-09] MEDS ORDERED: ePHEDrine SULFATE/0.9% NACL/PF 50 MG/5 ML SYRINGE IV ONE (10:09)
[2020-02-09] MEDS ORDERED: fentaNYL (PF) 50 MCG/ML 2 ML AMP ONE (10:09)
[2020-02-09] MEDS ORDERED: NALOXONE 0.4 MG/ML 1 ML VIAL ONE (10:09)
[2020-02-09] MEDS ORDERED: NEOSTIGMINE 1 MG/ML 10 ML VIAL ONE (10:09)
[2020-02-09] MEDS ORDERED: ETOMIDATE 2 MG/ML 10 ML VIAL ONE (10:09)
[2020-02-09] MEDS ORDERED: LIDOCAINE 1% INJ 10MG/ML (20 ML MDV) ONE (10:09)
[2020-02-09] MEDS ORDERED: SUCCINYLCHOLINE CHLORIDE 100 MG/5 ML SYR IV ONE (10:09)
[2020-02-09] MEDS ORDERED: BUPIVACAINE (PF) 0.25% 30 ML VIAL SQ ONE (10:36)
--- NOTE | 2020-02-09 10:53 | P.OP ---
Date of Procedure: 02/09/20 Preoperative Diagnosis: Cholecystitis Postoperative Diagnosis: Cholecystitis Procedure(s) Performed: Endoscopic cholecystectomy Anesthesia: MARY ALICE Surgeon: Nas Villalta Estimated Blood Loss (ml): 5 Pathology: other (All bladder) Condition: stable Disposition: PACU Description of Procedure: The patient was placed on the operating table. The patient received a general endotracheal tube anesthesia. The patients abdomen was prepped and draped in the usual sterile fashion. Through an infraumbilical stab incision, the fascia of the anterior abdominal wall was grasped with a pair of Kochers and then the Veress needle was placed in the peritoneal cavity. Position of the Veress needle was confirmed with positive drop test. The abdomen was then insufflated. After adequate insufflation, the 10 mm trocar was placed in the peritoneal cavity. Following this the laparoscope was placed in the peritoneal cavity. The patient was placed in the head-up, right side up position and then a 5 mm trocar was placed in the right lateral and right subcostal position under direct visualization. A 8 mm trocar was placed in the epigastric position. The gallbladder was grasped in the fundus and infundibulum. Traction on the gallbladder was placed in the lateral and the cephalad positions. The triangle of Calot was visualized.. The cystic duct was bluntly dissected until the union of the cystic duct and common bile duct was seen. A critical view of safety was achieved. The cystic duct was then divided and sealed with the Harmonic scissors. A PDS Endoloop was then placed throughout the cystic duct stump. The cystic artery divided and sealed with the Harmonic scissors. The gallbladder was then removed from the liver bed using Harmonic scissors. The gallbladder was then extracted through the epigastric port site. Operative field was checked for any bleeding spots and Harmonic scissors was used to coagulate the liver bed. The abdomen was irrigated. The trocars were removed. The skin was closed using interrupted 3-0 Vicryl suture. Dermabond dressing were applied. The patient tolerated the procedure well.
[2020-02-09 11:45] LABS: Glucose,Whole Blood 229 mg/dL (75-99)
[2020-02-09] MEDS: LOSARTAN 50 MG TAB PO SCH (12:16)
[2020-02-09] MEDS: ATORVASTATIN 20 MG TAB PO SCH (12:16)
[2020-02-09] MEDS: VIT A,C & E-LUTEIN-MINERALS 1 EACH TAB PO SCH (12:17)
[2020-02-09] MEDS: SERTRALINE 100 MG TAB PO SCH (12:17)
[2020-02-09] MEDS: NICOTINE 14MG/24HR PATCH TRANSDERM SCH (12:17)
[2020-02-09] MEDS ORDERED: MIDAZOLAM 2 MG/2 ML VIAL IVP ONE (12:32)
[2020-02-09 12:38] LABS: ABG Base Excess -12.1 mmol/L; ABG HCO3 16 mmol/L (21-25); ABG Oxygen Saturation 98.5 % (94-97); ABG PCO2 41 mmHg (35-45); ABG PO2 106 mmHg (83-108); ABG TCO2 17 mmol/L (19-24); Allen Test Performed? Yes
[2020-02-09] MEDS ORDERED: LIDOCAINE 1% (10MG/ML) FOR IV START INTRADERMA PRN (12:51)
[2020-02-09] MEDS ORDERED: ONDANSETRON 4 MG/2 ML VIAL IVP ONE (12:51)
[2020-02-09] MEDS ORDERED: DEXAMETHASONE SOD PHOSPHATE 10 MG/ML 1 ML VIAL IV ONE (12:51)
[2020-02-09] MEDS ORDERED: HYDROmorphone 0.5 MG/0.5 ML SYRINGE IVP PRN (12:51)
[2020-02-09] MEDS ORDERED: MIDAZOLAM 2 MG/2 ML VIAL IV PRN (12:51)
--- NOTE | 2020-02-09 12:58 | XR ---
EXAMINATION TYPE: XR chest 1V portable DATE OF EXAM: 02/09/2020 Comparison: 08/19/2019 Clinical History: 34-year-old female rehabilitation Findings: Patient is rotated towards the left altering the normal cardiomediastinal contours. ET tube is low ju st entering origin of right mainstem bronchus. This can be pulled back 3 cm and reassessed at follow- up. Heart normal size. Patchy left basilar opacity. Hyperinflation. Impression: 1. The ET tube tip is at the origin of the right mainstem bronchus. Pull back 3 cm and reassess at fo llow-up. 2. Patchy left basilar infiltrate. Background of COPD.
[2020-02-09 13:14] LABS: Glucose,Whole Blood 226 mg/dL (75-99)
[2020-02-09] MEDS: LACTATED RINGERS 1,000 ML IV SCH (13:15)
[2020-02-09] MEDS ORDERED: ATROPINE SULFATE 0.1 MG/ML 10ML SYRINGE ONE (13:17)
[2020-02-09] MEDS ORDERED: SODIUM CHLORIDE 0.9% 1,000 ML IV ONE ×2 (13:24)
[2020-02-09] MEDS ORDERED: SODIUM BICARB 8.4% 50 ML SYR (1 MEQ/ML) IV STA ×2 (13:25)
[2020-02-09 15:52] LABS: Glucose,Whole Blood 124 mg/dL (75-99)
--- NOTE | 2020-02-09 16:06 | CONS ---
CONSULTATION PULMONARY/CRITICAL CARE CONSULTATION: DATE OF SERVICE: 02/09/2020. REASON FOR CONSULTATION: Respiratory failure. This is a patient who apparently was initially seen in the emergency room back on January 26. She apparently came in with complaints of nausea, vomiting and diarrhea. She apparently woke up in the morning complaining of nausea, vomiting and diarrhea. In the process of evaluating this patient, the patient was noted on abdominal CT scan to show cholelithiasis and sigmoid diverticulosis. The abdominal ultrasound done on February 05 revealed a few gallstones, no dilated ducts. Anyway, the patient went for a laparoscopic cholecystectomy today with Dr. Villalta. Apparently initially the patient was extubated, and then in some 15 or 30 minutes after extubation, the patient was found to be having respiratory distress, could not maintain her airway, had hypoxemia, and she was reintubated by Anesthesia. Currently she is on the volume assist-control mode rate of 14, tidal volume 450, FiO2 of 70%, PEEP of 5. We saw her in the phase 1 recovery area. We made a bed for her in the intensive care unit. She was getting lactated Ringer's at [facility]. She apparently was initially a DNR and made a FULL CODE for surgery. A chest x-ray that we viewed in the phase 1 recovery area showed an endotracheal tube that was pretty much down the right mainstem. We asked the respiratory therapist to pull it back 2 cm. We were notified from the ICU nurses about a blood gas that was recently done once the patient arrived in the ICU. Her PO2 was 106, pCO2 was 41, and pH was 7.20. That was on essentially the same settings. We decided to give the patient 2 amps of sodium bicarbonate, IV fluids for hypotension, drop the FiO2 down to 60% and increase the rate to 22 and the tidal volume to be dropped down from 450 to 350. HOME MEDICATIONS: Her home medications are reviewed. She has a history of being on aspirin, levothyroxine, Zoloft, eye vitamins, Glucotrol XL, trazodone, doxycycline, Ponder and Remeron. ALLERGIES: VANCOMYCIN. PAST MEDICAL HISTORY: Medical history includes COPD, diabetes mellitus, hyperlipidemia, hypertension, pneumonia, septic arthritis, chronic anxiety, tobacco use and previous history of UTI. SURGICAL HISTORY: Surgical history includes bowel resection, hysterectomy, previous ileostomy and subsequent reversal, surgery for left femur fracture and left knee replacement. SOCIAL HISTORY: Apparently positive for tobacco. No alcohol or illicit drug use. FAMILY HISTORY: Positive for her mother passing away at age 82 with heart problems and her father passing away at age 84 with lung cancer. She also apparently has a sister with leukemia and a daughter with no major medical problems. REVIEW OF SYSTEMS: Review of systems cannot be obtained because the patient is currently intubated and sedated with propofol. PHYSICAL EXAMINATION: VITAL SIGNS: Current vital signs include a temperature of 96.8, heart rate 66, respiratory rate 22 and blood pressure is 90/62, saturations are 97%. HEENT EXAMINATION: Grossly unremarkable. There is an orally placed endotracheal tube. NECK: Supple. Full range of motion. CARDIOVASCULAR: Examination reveals regular rhythm and rate. Heart rate about 70 beats per minute. Heart sounds are distant. LUNGS: Lungs reveal bilateral coarse breath sounds. When we listened to her in the phase 1 recovery, there were increased breath sounds on the right and decreased breath sounds on the left, reflecting the right mainstem intubation. ABDOMEN: Soft. No bowel sounds. EXTREMITIES: Intact. No cyanosis, clubbing or edema. SKIN: Without rash. NEUROLOGIC: Neurologic examination could not be adequately assessed. LAB DATA: Reviewed. From today, white count 6.9, hemoglobin 11.8, hematocrit 38.6, platelet count 115,000. Blood gases have already been noted. Sodium 138, potassium 4, chloride 113. CO2 is 17. Anion gap is 7.7. BUN and creatinine were 48 and 2.1, calcium 8.1, AST 43, alkaline phosphatase 147. Total protein 5.3, lipase 68. Urine suggests a possible urinary tract infection. The urine was cloudy with 1+ protein. Nitrite was positive small, positive leukocyte esterase, one RBC, 10 WBCs and many urine bacteria. Microbiology is thus far negative. Chest x-ray shows a right mainstem intubation. There is some basilar atelectasis on the left side. MEDICATIONS: Medications are currently reviewed. The patient is currently on aspirin, Lipitor, Coreg, chlorhexidine, D5 0.45 at 100 mL/hour, subcutaneous heparin, sliding scale insulin, DuoNeb, lactated Ringer's, levothyroxine, Remeron, Narcan, nicotine patch, Zofran, Protonix, Zosyn, propofol and Zoloft. The patient is also apparently on Desyrel and vitamins. ASSESSMENT: 1. Postoperative day number zero, status post laparoscopic cholecystectomy with subsequent respiratory failure requiring re-intubation on 02/09/2020. 2. Right mainstem intubation, endotracheal tube pulled back 2 cm. 3. Possible urinary tract infection. 4. History of tobacco use with possible underlying chronic obstructive pulmonary disease. 5. Diabetes mellitus. 6. Hyperlipidemia. 7. History of hypertension. 8. History of pneumonia. 9. Chronic anxiety. 10.Previous history of urinary tract infection. PLAN: Please see my orders. Vent changes were made. The patient will be sedated with propofol. Will give the patient volume. If she does not respond to volume, the patient will be started on norepinephrine. The patient also received 2 amps of sodium bicarbonate for her metabolic acidosis. No additional recommendations are made. Prognosis is guarded. MMODL / IJN: [id number] /
[2020-02-09 16:47] LABS: Calcium 7.1 mg/dL (8.4-10.2); Potassium 3.4 mmol/L (3.5-5.1)
[2020-02-09] MEDS: DOPamine DRIP 800 MG in DEXTROSE/WATER 1 250ML.BAG IV SCH (17:05)
[2020-02-09] MEDS ORDERED: Potassium Replacement Protocol 1 EACH MISC MISCELLANE PRN (19:58)
[2020-02-09 20:18] LABS: Glucose,Whole Blood 178 mg/dL (75-99)
[2020-02-09] MEDS: ASPIRIN 81 MG PO SCH (20:35)
[2020-02-09] MEDS: CHLORHEXIDINE GLUCONATE 15 ML CUP MUCOUS MEM SCH (20:35)
[2020-02-09] MEDS: POTASSIUM CHLORIDE 10 MEQ in WATER FOR INJECTION 1 100ML.BAG IVPB SCH ×2 (20:35→22:07)
--- NOTE | 2020-02-09 21:07 | XR ---
EXAMINATION TYPE: XR chest 1V portable DATE OF EXAM: 02/09/2020 COMPARISON: Same day radiograph at 1205 hours. HISTORY: NG tube placement. TECHNIQUE: Single frontal view of the chest is obtained. FINDINGS: There is interval placement of an NG tube coursing below the diaphragm and distal portion o verlying the stomach. The endotracheal tube remains in place. There is persistent moderate left basil ar opacity with small pleural effusion, slightly increased compared to the prior study. No pneumothor ax. The cardiac silhouette size is within normal limits. The osseous structures are intact. IMPRESSION: As above.
[2020-02-09] MEDS: traZODone HCL 100 MG TAB PO SCH (21:14)
[2020-02-09] MEDS: POTASSIUM BICARBONATE/CIT AC 20 MEQ TABLET.EFF NG-TUBE SCH ×2 (22:08→23:07)
[2020-02-10 00:08] LABS: Glucose,Whole Blood 127 mg/dL (75-99)
[2020-02-10] MEDS: INSULIN ASPART (NovoLOG) 100 UNIT/ML VIAL SQ SCH ×7 (00:14→23:53)
[2020-02-10] MEDS: IPRATROPIUM-ALBUTEROL 3 ML NEB INHALATION SCH ×6 (00:24→19:08)
[2020-02-10 03:53] LABS: Anisocytosis Slight; Basophils % (A) 0 %; Eosinophils # (A) 0.1 k/uL (0-0.7); Eosinophils % (A) 1 %; Hypochromasia Marked; Lymphocytes # (A) 0.9 k/uL (1.0-4.8); Lymphocytes % (A) 11 %; MCH 29.4 pg (25.0-35.0); MCHC 29.9 g/dL (31.0-37.0); MCV 98.6 fL (80.0-100.0); Macrocytosis Slight; Mean Platelet Volume 9.7; Monocytes # (A) 0.5 k/uL (0-1.0); Monocytes % (A) 6 %; Neutrophils # (A) 6.7 k/uL (1.3-7.7); Neutrophils % (A) 80 %; Platelet Count 136 k/uL (150-450); RBC 3.75 m/uL (3.80-5.40); RDW 16.7 % (11.5-15.5); WBC 8.4 k/uL (3.8-10.6)
[2020-02-10 04:01] LABS: Calcium 7.7 mg/dL (8.4-10.2); Potassium 4.7 mmol/L (3.5-5.1)
[2020-02-10 05:08] LABS: Glucose,Whole Blood 135 mg/dL (75-99)
[2020-02-10] MEDS: DEXTROSE 5%-0.45% NACL 1,000 ML IV SCH ×2 (05:11→08:53)
[2020-02-10 05:31] LABS: ABG Base Excess -5.1 mmol/L; ABG HCO3 20 mmol/L (21-25); ABG Oxygen Saturation 99.3 % (94-97); ABG PCO2 31 mmHg (35-45); ABG PO2 111 mmHg (83-108); ABG TCO2 21 mmol/L (19-24); Allen Test Performed? Yes
[2020-02-10] MEDS: LEVOTHYROXINE 25 MCG TAB PO SCH (05:31)
--- NOTE | 2020-02-10 08:36 | XR ---
EXAMINATION TYPE: XR chest 1V portable DATE OF EXAM: 02/10/2020 CLINICAL HISTORY: Shortness of breath TECHNIQUE: Portable semiupright view of the chest COMPARISON: 02/09/2020 chest radiograph FINDINGS: Endotracheal tube distal tip 1.1 cm and the lona. Enteric tube with nonvisualization of the distal tip, with side-port overlying the projected area of the gastric fundus. The lungs are hype rinflated with coarse interstitial change. Subsegmental atelectasis of the bilateral lung bases. Smal l left pleural effusion redemonstrated. No pneumothorax. The cardiomediastinal silhouette is within n ormal limits for size. Pulmonary vasculature is normal. The osseous structures are intact. IMPRESSION: Persistent small left pleural effusion.
[2020-02-10 08:44] LABS: Glucose,Whole Blood 149 mg/dL (75-99)
[2020-02-10] MEDS: HEPARIN SODIUM,PORCINE 5,000 UNIT/ML 1 ML VIAL SQ SCH ×2 (08:52→20:41)
[2020-02-10] MEDS: CHLORHEXIDINE GLUCONATE 15 ML CUP MUCOUS MEM SCH (08:52)
[2020-02-10] MEDS: NICOTINE 14MG/24HR PATCH TRANSDERM SCH (08:52)
[2020-02-10] MEDS: PANTOPRAZOLE 40 MG/10 ML VIAL IVP SCH (08:52)
[2020-02-10] MEDS: PIPERACILLIN-TAZOBACTAM 3.375 GM in SODIUM CHLORIDE 0.9% 100 ML IVPB SCH ×2 (08:52→16:09)
[2020-02-10] MEDS: SERTRALINE 100 MG TAB PO SCH (08:53)
[2020-02-10] MEDS: HYDROmorphone 0.5 MG/0.5 ML SYRINGE IVP PRN (09:23)
--- NOTE | 2020-02-10 10:31 | P.PN ---
Subjective Progress Note Date: 02/10/20 CHIEF COMPLAINT: Gallstone pancreatitis HISTORY OF PRESENT ILLNESS: Patient is status post laparoscopic cholecystectomy With Dr. olmedo. Patient initially was extubated after surgery but did require to be reintubated due to respiratory distress. She is currently in the ICU And intubated requiring mechanical ventilation. She has been weaned off the propofol. Possible extubation later today. She is currently on dopamine. She's afebrile. WBC 8.4 PHYSICAL EXAM: VITAL SIGNS: Reviewed. GENERAL: Well-developed in no acute distress. HEENT: No sclera icterus. Extraocular movements grossly intact. Moist buccal mucosa. Head is atraumatic, normocephalic. ABDOMEN: Soft. Nondistended. Dressing clean dry and intact NEUROLOGIC: Patient intubated ASSESSMENT: 1. Cholecystitis status post Laparoscopic cholecystectomy. Postop day #1 2. Gallstone pancreatitis 3. Acute hypoxic respiratory failure PLAN: -Continue vent management per critical care team -Continue ICU management Physician Physical Therapy Aid note has been reviewed by physician. Signing provider agrees with the documented findings, assessment, and plan of care. Objective - Vital Signs Vital signs: Vital Signs Temp 96.3 F L 02/10/20 08:00 Pulse 65 02/10/20 10:00 Resp 22 02/10/20 10:00 BP 100/51 02/10/20 10:00 Pulse Ox 100 02/10/20 10:00 Intake & Output 02/09/20 02/10/20 02/10/20 18:59 06:59 18:59 Intake Total 2008.876 1520 611.765 Output Total 245 383 75 Balance 3037.072 6725 536.765 Weight 50.802 kg 55 kg Intake: IV 1989 1520 420 0.9 sodium chloride 40 220 80 carrier Dextrose 5%-0.45% NaCl 1, 300 1100 340 000 ml @ 100 mls/hr IV . Q10H [facility] Rx#:[id number] Lactated Ringers 1,000 ml 1000 @ 20 mls/hr IV .Q24H QUINN Rx#:[id number] Piperacillin-Tazobactam 3 100 .375 gm In Sodium Chloride 0.9% 100 ml @ 25 mls/hr IVPB Q12HR [facility]N Rx #:[id number] Potassium Chloride 10 meq 100 In Water For Injection 1 100ml.bag @ 100 mls/hr IVPB Q1HR QU[facility]N Rx#: [id number] Intake, IV Titration 18.876 191.765 Amount DOPamine DRIP 800 mg In 1.080 44.68 Dextrose/Water 1 250ml. bag @ 1 MCG/KG/MIN 0.953 mls/hr IV .Q24H [facility]INN Rx#: [id number] Piperacillin-Tazobactam 3 75 .375 gm In Sodium Chloride 0.9% 100 ml @ 25 mls/hr IVPB Q12HR [facility]N Rx #:[id number] propofoL 1,000 mg In 17.796 72.085 Empty Bag 1 bag @ Titrate IV .Q0M QUINN Rx#: [id number] Output: Urine 240 383 75 Estimated Blood Loss 5 Other: Voiding Method Indwelling Catheter Indwelling Catheter Indwelling Catheter - Labs CBC & Chem 7: 02/10/20 03:35 02/10/20 03:35 Labs: Abnormal Lab Results - Last 24 Hours (Table) 02/09/20 02/09/20 02/09/20 Range/Units 11:43 12:28 13:11 RBC (3.80-5.40) m/uL Hgb (11.4-16.0) gm/dL MCHC (31.0-37.0) g/dL RDW (11.5-15.5) % Plt Count (150-450) k/uL Lymphocytes # (1.0-4.8) k/uL ABG pH 7.20 L (7.35-7.45) ABG pCO2 (35-45) mmHg ABG pO2 (83-108) mmHg ABG HCO3 16 L (21-25) mmol/L ABG Total CO2 17 L (19-24) mmol/L ABG O2 Saturation 98.5 H (94-97) % Sodium (137-145) mmol/L Potassium (3.5-5.1) mmol/L Chloride (98-107) mmol/L Carbon Dioxide (22-30) mmol/L BUN (7-17) mg/dL Creatinine (0.52-1.04) mg/dL Glucose (74-99) mg/dL POC Glucose (mg/dL) 229 H 226 H (75-99) mg/dL Calcium (8.4-10.2) mg/dL 02/09/20 02/09/20 02/09/20 Range/Units 15:50 16:15 20:17 RBC (3.80-5.40) m/uL Hgb (11.4-16.0) gm/dL MCHC (31.0-37.0) g/dL RDW (11.5-15.5) % Plt Count (150-450) k/uL Lymphocytes # (1.0-4.8) k/uL ABG pH (7.35-7.45) ABG pCO2 (35-45) mmHg ABG pO2 (83-108) mmHg ABG HCO3 (21-25) mmol/L ABG Total CO2 (19-24) mmol/L ABG O2 Saturation (94-97) % Sodium (137-145) mmol/L Potassium 3.4 L (3.5-5.1) mmol/L Chloride 116 H (98-107) mmol/L Carbon Dioxide 20 L (22-30) mmol/L BUN 42 H (7-17) mg/dL Creatinine 1.99 H (0.52-1.04) mg/dL Glucose (74-99) mg/dL POC Glucose (mg/dL) 124 H 178 H (75-99) mg/dL Calcium 7.1 L (8.4-10.2) mg/dL 02/10/20 02/10/20 02/10/20 Range/Units 00:05 03:35 03:35 RBC 3.75 L (3.80-5.40) m/uL Hgb 11.0 L (11.4-16.0) gm/dL MCHC 29.9 L (31.0-37.0) g/dL RDW 16.7 H (11.5-15.5) % Plt Count 136 L (150-450) k/uL Lymphocytes # 0.9 L (1.0-4.8) k/uL ABG pH (7.35-7.45) ABG pCO2 (35-45) mmHg ABG pO2 (83-108) mmHg ABG HCO3 (21-25) mmol/L ABG Total CO2 (19-24) mmol/L ABG O2 Saturation (94-97) % Sodium 135 L (137-145) mmol/L Potassium (3.5-5.1) mmol/L Chloride 114 H (98-107) mmol/L Carbon Dioxide 18 L (22-30) mmol/L BUN 39 H (7-17) mg/dL Creatinine 1.98 H (0.52-1.04) mg/dL Glucose 115 H (74-99) mg/dL POC Glucose (mg/dL) 127 H (75-99) mg/dL Calcium 7.7 L (8.4-10.2) mg/dL 02/10/20 02/10/20 02/10/20 Range/Units 05:06 05:27 08:42 RBC (3.80-5.40) m/uL Hgb (11.4-16.0) gm/dL MCHC (31.0-37.0) g/dL RDW (11.5-15.5) % Plt Count (150-450) k/uL Lymphocytes # (1.0-4.8) k/uL ABG pH (7.35-7.45) ABG pCO2 31 L (35-45) mmHg ABG pO2 111 H (83-108) mmHg ABG HCO3 20 L (21-25) mmol/L ABG Total CO2 (19-24) mmol/L ABG O2 Saturation 99.3 H (94-97) % Sodium (137-145) mmol/L Potassium (3.5-5.1) mmol/L Chloride (98-107) mmol/L Carbon Dioxide (22-30) mmol/L BUN (7-17) mg/dL Creatinine (0.52-1.04) mg/dL Glucose (74-99) mg/dL POC Glucose (mg/dL) 135 H 149 H (75-99) mg/dL Calcium (8.4-10.2) mg/dL Microbiology - Last 24 Hours (Table) 02/08/20 02:40 Urine Culture - Preliminary Urine,Voided Gram Neg Bacilli Group D Enterococcus 02/10/20 00:24 Sputum Culture - Preliminary Sputum 02/07/20 09:45 Blood Culture - Preliminary Blood No Growth after 48 hours 02/07/20 09:26 Blood Culture - Preliminary Blood No Growth after 48 hours
--- NOTE | 2020-02-10 11:12 | PN ---
PROGRESS NOTE PULMONARY/CRITICAL CARE PROGRESS NOTE: 02/10/2020 This is a 74-year-old female who we saw yesterday in consultation. She was seen in the emergency room back on February 05. She came in with complaints of nausea, vomiting, diarrhea, was thought to have gallstone pancreatitis. The patient went for a laparoscopic cholecystectomy yesterday. The patient apparently was extubated in the recovery area and then for unclear reasons probably respiratory distress of some sort, the patient was reintubated. She is here in the ICU on the ventilator. We did see her yesterday in the phase 1 recovery area. Currently, she is postop day #1 status post laparoscopic cholecystectomy performed by Dr. Villalta. She is on the ventilator on the volume assist-control mode rate of 22, tidal volume 350, FiO2 of 40%, PEEP of 5. Blood gases show pO2 of 111, pCO2 of 31, pH of 7.40. This is consistent with a mixed acid-base disturbance including a respiratory alkalosis and metabolic acidosis. She is on D5 at 0.45 at 100 mL an hour, propofol at 15 mcg/kg/per minute and dopamine at 3 mcg/kg/per minute, primarily for bradycardia and hypotension. It has helped a lot. I think she is ready to be given a daily interruption of sedation and potentially wean from mechanical ventilation. Current vital signs are reviewed. Her temperature is 97.7, heart rate 63, respiratory rate 22, blood pressure 114/58 mean 76, saturations are 100%. Appears in no acute distress. Currently sedated. HEENT: Examination is grossly unremarkable. There is an orally placed endotracheal tube. Neck is supple, full range of motion. No adenopathy. Neck veins are flat. CARDIOVASCULAR: Examination reveals regular rhythm and rate. Heart rate mid 60s. S1, S2 normal. No murmur. Lungs are clear, breath sounds equal. ABDOMEN: Soft. No bowel sounds. EXTREMITIES: Intact. No edema. SKIN: Without rash. NEUROLOGIC: Examination is difficult to assess because she is currently sedated. LABS: Reviewed. White count 8.4, hemoglobin 11, hematocrit 37.0, platelet count 136,000, blood gases have been noted. Sodium 135, potassium 4.7, chloride 114, CO2 is 18, anion gap is 3, BUN and creatinine were 39 and 1.98. Current microbiology including blood urine and sputum are all negative. A chest x-ray shows a small left-sided pleural effusion and left basilar atelectasis. CURRENT MEDICATIONS: Reviewed. She is currently on aspirin, chlorhexidine, IV, dopamine, subcu heparin, Dilaudid, insulin, DuoNeb, levothyroxine, Narcan, nicotine patch, Zofran, Protonix, Zosyn, potassium replacement, Diprivan, and Zoloft and Desyrel. ASSESSMENT: 1. Postoperative day #1, status post laparoscopic cholecystectomy with subsequent respiratory failure requiring re-intubation on February 09, 2020. 2. Acute hypoxemic respiratory failure, probably laparoscopic cholecystectomy. 3. Right knee intubation, status post endotracheal tube being pulled back to 2.5 cm. 4. Possible urinary tract infection. 5. History of tobacco use and possible underlying COPD. 6. Diabetes mellitus. 7. Hyperlipidemia. 8. History of hypertension. 9. Gallstone pancreatitis. 10.History of pneumonia. 11.Chronic anxiety. 12.Previous history of urinary tract infection. PLAN: Currently, the patient is on the volume assist-control mode. Will do a daily interruption of sedation. The propofol will be held. Will allow the patient to wake up and do some weaning parameters. We will do a cuff leak test. Additional recommendations and suggestions are forthcoming. We will leave the dopamine off. No additional recommendations are made. Prognosis is guarded. Critical care time 33 minutes. MMBRANDONL / ELIOTN: [id number] /
[2020-02-10 11:37] LABS: Glucose,Whole Blood 110 mg/dL (75-99)
--- NOTE | 2020-02-10 15:04 | P.PN ---
Subjective Progress Note Date: 02/10/20 This is a 74-year-old female patient of mine with past history for COPD, diabetes mellitus type 2 insulin requiring, hypertension, hyperlipidemia, generalized osteoarthritis, generalized anxiety disorder, AAA. Patient has history of osteoarthritis and under the care of Dr. Lara status post left total knee arthroplasty last July. Subsequently, she was readmitted and underwent patellar retinaculum and quadriceps tendon repair. She was readmitted in September for surgical wound ulceration eschar with flap necrosis and underwent I&D and was last admiited to our hospital on 07/2019 and was seen by ID and Vascular and it was recommended for her to have left AKA but she declined and wanted to continue with conservative management with chroniv oral antibiotics and pain control and she has a great support at home with her daughter and her , patient presented to the emergency department at [facility] yesterday with increased abdominal pain associated with nausea and vomiting she underwent computed tomography scan of the abdomen and pelvis that showed inflammatory changes of the pancreas also she appeared to have a chronic dissection of her aorta with abdominal aortic aneurysm at 3.8 cm, this was followed by ultrasound of the abdomen that showed cholelithiasis without ductal dilatation and stable abdominal aortic aneurysm at 3.8 cm, patient was placed on clear liquid diet started on IV fluid resuscitation was admitted to the hospital for evaluation general surgery consultation as well as GI consultation. 02/07: Patient states that she is feeling a little better today, pain is decreased. She has not had a bowel movement today. Patient did have hallucinations during the night and a health/safety job titles was required. She is oriented 3 and can answer questions appropriately but the time of this evaluation, patient thinks there is a dog in the room. Patient has been seen by Dr. Villalta and plan is for laparoscopic cholecystectomy tomorrow. We will contact the patient's and discuss plan of care. Repeat lipase 247. Blood sugar this morning was 56 and patient was started on a D5 0.9 normal saline fluid. 02/08: Patient has been afebrile, heart rate 53, blood pressure 152/65, pulse ox 99% on room air. Repeat CBC reveals WBC 6.9, hemoglobin 11.8, platelet count 115. Sodium 138, potassium 4.0, chloride 113, CO2 17.3, BUN 48 and creatinine 2.1. Blood sugars have been running in the 60s. Alkaline phosphatase 147, total bilirubin 0.4, ALT 28 and AST 43. Yesterday, discussed surgical option with the patient's family. They would like to move forward with this. She is scheduled for laparoscopic cholecystectomy today with Dr. Villalta. 02/09: Patient underwent surgery yesterday with Dr. Villalta but had difficulty in the PACU was unresponsive and hypoxic along with bradycardia and hypotension. She was placed on simple mask with pulse ox of 98% with worsening oxygen saturations down to 83% on 100% nonrebreather. Patient was placed on BiPAP followed by reintubation and transferred to the intensive care unit. Patient remains intubated and on mechanical ventilation with tidal volume 350, FiO2 40, PEEP of 5. Patient has been started on a dopamine drip, off dopamine at the time of this evaluation. Blood pressure currently 99/59, heart rate 61, temperature has been low at 96.3. Patient is awake and alert. She is opening her eyes and able to communicate by nodding. Anticipate that she will be weaned off ventilator this afternoon. Repeat chest x-ray reveals persistent small left pleural effusion. Objective - Vital Signs Vital signs: Vital Signs Temp 96.3 F L 02/10/20 08:00 Pulse 61 02/10/20 11:30 Resp 22 02/10/20 11:30 BP 99/59 02/10/20 11:30 Pulse Ox 99 02/10/20 11:00 Intake & Output 02/09/20 02/10/20 02/10/20 18:59 06:59 18:59 Intake Total 2008.876 1520 739.687 Output Total 245 383 90 Balance 0158.350 0397 649.687 Weight 50.802 kg 55 kg Intake: IV 1989 1520 520 0.9 sodium chloride 40 220 100 carrier Dextrose 5%-0.45% NaCl 1, 300 1100 420 000 ml @ 100 mls/hr IV . Q10H QUINN Rx#:[id number] Lactated Ringers 1,000 ml 1000 @ 20 mls/hr IV .Q24H QUINN Rx#:[id number] Piperacillin-Tazobactam 3 100 .375 gm In Sodium Chloride 0.9% 100 ml @ 25 mls/hr IVPB Q12HR [facility]N Rx #:[id number] Potassium Chloride 10 meq 100 In Water For Injection 1 100ml.bag @ 100 mls/hr IVPB Q1HR QUINN Rx#: [id number] Intake, IV Titration 18.876 219.687 Amount DOPamine DRIP 800 mg In 1.080 47.602 Dextrose/Water 1 250ml. bag @ 1 MCG/KG/MIN 0.953 mls/hr IV .Q24H QUINN Rx#: [id number] Piperacillin-Tazobactam 3 100 .375 gm In Sodium Chloride 0.9% 100 ml @ 25 mls/hr IVPB Q12HR [facility]N Rx #:[id number] propofoL 1,000 mg In 17.796 72.085 Empty Bag 1 bag @ Titrate IV .Q0M QUINN Rx#: [id number] Output: Urine 240 383 90 Estimated Blood Loss 5 Other: Voiding Method Indwelling Catheter Indwelling Catheter Indwelling Catheter - Exam Review of Systems Unable to obtain as patient is intubated. Physical examination: GEN: This is a 74-year-old female. She is resting in ICU bed and appears to be comfortable. HEENT: Head is atraumatic, normocephalic, pupils were equal round reactive to light and recommendation, extraocular muscle movement were intact, mucous membranes of the mouth are somewhat dry. Intubated and on mechanical ventilation, oral gastric tube in place. Neck: Supple, no JVP, decreased carotid upstroke bilaterally. Chest: Decreased breath sounds at bases, few rhonchi, no wheezes, no chest wall tenderness, no intercostal retractions. Heart: First heart sound is depressed, second heart sounds normal, there is systolic ejection murmur 2/6 located in the left sternal border. Abdomen: Soft, no rebound or guarding positive bowel sounds. Puncture sites show no signs of infection, no significant drainage. Coyne catheter draining clear kashif urine. Extremities: No edema, no calf tenderness significant muscle wasting, left knee with a chronic wound with osteomyelitis. Dorsalis pedis +1 bilaterally. Neurologic examination: Patient is awake alert and intubated. - Labs CBC & Chem 7: 02/10/20 03:35 02/10/20 03:35 Labs: Abnormal Lab Results - Last 24 Hours (Table) 02/09/20 02/09/20 02/09/20 Range/Units 12:28 13:11 15:50 RBC (3.80-5.40) m/uL Hgb (11.4-16.0) gm/dL MCHC (31.0-37.0) g/dL RDW (11.5-15.5) % Plt Count (150-450) k/uL Lymphocytes # (1.0-4.8) k/uL ABG pH 7.20 L (7.35-7.45) ABG pCO2 (35-45) mmHg ABG pO2 (83-108) mmHg ABG HCO3 16 L (21-25) mmol/L ABG Total CO2 17 L (19-24) mmol/L ABG O2 Saturation 98.5 H (94-97) % Sodium (137-145) mmol/L Potassium (3.5-5.1) mmol/L Chloride (98-107) mmol/L Carbon Dioxide (22-30) mmol/L BUN (7-17) mg/dL Creatinine (0.52-1.04) mg/dL Glucose (74-99) mg/dL POC Glucose (mg/dL) 226 H 124 H (75-99) mg/dL Calcium (8.4-10.2) mg/dL 02/09/20 02/09/20 02/10/20 Range/Units 16:15 20:17 00:05 RBC (3.80-5.40) m/uL Hgb (11.4-16.0) gm/dL MCHC (31.0-37.0) g/dL RDW (11.5-15.5) % Plt Count (150-450) k/uL Lymphocytes # (1.0-4.8) k/uL ABG pH (7.35-7.45) ABG pCO2 (35-45) mmHg ABG pO2 (83-108) mmHg ABG HCO3 (21-25) mmol/L ABG Total CO2 (19-24) mmol/L ABG O2 Saturation (94-97) % Sodium (137-145) mmol/L Potassium 3.4 L (3.5-5.1) mmol/L Chloride 116 H (98-107) mmol/L Carbon Dioxide 20 L (22-30) mmol/L BUN 42 H (7-17) mg/dL Creatinine 1.99 H (0.52-1.04) mg/dL Glucose (74-99) mg/dL POC Glucose (mg/dL) 178 H 127 H (75-99) mg/dL Calcium 7.1 L (8.4-10.2) mg/dL 02/10/20 02/10/20 02/10/20 Range/Units 03:35 03:35 05:06 RBC 3.75 L (3.80-5.40) m/uL Hgb 11.0 L (11.4-16.0) gm/dL MCHC 29.9 L (31.0-37.0) g/dL RDW 16.7 H (11.5-15.5) % Plt Count 136 L (150-450) k/uL Lymphocytes # 0.9 L (1.0-4.8) k/uL ABG pH (7.35-7.45) ABG pCO2 (35-45) mmHg ABG pO2 (83-108) mmHg ABG HCO3 (21-25) mmol/L ABG Total CO2 (19-24) mmol/L ABG O2 Saturation (94-97) % Sodium 135 L (137-145) mmol/L Potassium (3.5-5.1) mmol/L Chloride 114 H (98-107) mmol/L Carbon Dioxide 18 L (22-30) mmol/L BUN 39 H (7-17) mg/dL Creatinine 1.98 H (0.52-1.04) mg/dL Glucose 115 H (74-99) mg/dL POC Glucose (mg/dL) 135 H (75-99) mg/dL Calcium 7.7 L (8.4-10.2) mg/dL 02/10/20 02/10/20 02/10/20 Range/Units 05:27 08:42 11:36 RBC (3.80-5.40) m/uL Hgb (11.4-16.0) gm/dL MCHC (31.0-37.0) g/dL RDW (11.5-15.5) % Plt Count (150-450) k/uL Lymphocytes # (1.0-4.8) k/uL ABG pH (7.35-7.45) ABG pCO2 31 L (35-45) mmHg ABG pO2 111 H (83-108) mmHg ABG HCO3 20 L (21-25) mmol/L ABG Total CO2 (19-24) mmol/L ABG O2 Saturation 99.3 H (94-97) % Sodium (137-145) mmol/L Potassium (3.5-5.1) mmol/L Chloride (98-107) mmol/L Carbon Dioxide (22-30) mmol/L BUN (7-17) mg/dL Creatinine (0.52-1.04) mg/dL Glucose (74-99) mg/dL POC Glucose (mg/dL) 149 H 110 H (75-99) mg/dL Calcium (8.4-10.2) mg/dL Microbiology - Last 24 Hours (Table) 02/07/20 09:45 Blood Culture - Preliminary Blood No Growth after 72 hours 02/07/20 09:26 Blood Culture - Preliminary Blood No Growth after 72 hours 02/08/20 02:40 Urine Culture - Preliminary Urine,Voided Gram Neg Bacilli Group D Enterococcus 02/10/20 00:24 Sputum Culture - Preliminary Sputum Assessment and Plan Plan: 1. Acute pancreatitis likely related to cholelithiasis status post laparoscopic cholecystectomy. Continue IV fluid resuscitation switch her IV fluid to D5 0.45 normal saline at 100 mL an hour, continue patient on Zofran 4 mg IV push every 6 hours as needed, continue Protonix 40 mg IV push every 24 hours. 2. Acute hypoxic respiratory failure, unexpected postop complication. Patient is maintained in the intensive care unit, managed by director of outreach. Anticipate possible extubation later today. 3. Anion and non-anion gap metabolic acidosis. Monitor the patient CMP over the next 24 hours, replace potassium. 4. Urinary tract infection with sepsis. Continue IV fluid resuscitation, continue Zosyn 3.375 g IV piggyback every 8 hours, check urine culture and blood culture. 5. Acute kidney injury and top of chronic kidney disease stage III. Continue IV fluid resuscitation monitor the patient CMP over the next 24 hours. 6. Accelerated hypertension with history of hypertension and hypertensive cardio vascular disease. Hold Coreg 25 mg orally twice every day as well as losartan 50 mg orally once every day. 7. Diabetes mellitus type 2 uncontrolled with hypoglycemia. Start the patient on sliding scale insulin. Hold off glipizide for now. We'll 8. Hyperlipidemia. Continue patient on Lipitor 20 mg orally once every day. 9. Chronic osteomyelitis of the left knee. Hold off doxycycline for now. 10. Recurrent Depression. Continue patient on Zoloft 100 mg orally once every day and Remeron 15 mg orally once every day. 11. Chronic aortic dissection with abdominal aortic aneurysm. Stable. 12. Chronic tobacco use and dependence with COPD. Continue patient on DuoNeb 3 mg nebulization 4 times every day, start the patient on nicotine patch 14 mg once every day. 13. Poor appetite with cachexia and severe protein calorie malnutrition continue with Glucerna twice every day continue with Remeron 15 mg orally at bedtime. 14. Hypothyroidism. Continue with synthroid 25 mcg orally daily. 15. DVT prophylaxis. Continue patient on heparin 5000 units subcutaneously every 12 hours for 16. GI prophylaxis. Continue patient on Protonix 40 mg IV push every 24 hours. 17. Visual hallucinations. Possibly due to combination of medication effect, hospitalization, illness and possible early dementia. Patient is no code. Discharge plan: Home most likely. Impression and plan of care have been directed as dictated by the signing physician. Annie Ba nurse practitioner acting as scribe for signing physici an.
[2020-02-10 16:07] LABS: Glucose,Whole Blood 158 mg/dL (75-99)
[2020-02-10] MEDS: DOPamine DRIP 800 MG in DEXTROSE/WATER 1 250ML.BAG IV SCH (16:07)
[2020-02-10 20:31] LABS: Glucose,Whole Blood 103 mg/dL (75-99)
[2020-02-10] MEDS: ASPIRIN 81 MG PO SCH (20:41)
[2020-02-10] MEDS: traZODone HCL 100 MG TAB PO SCH (20:42)
[2020-02-10 23:52] LABS: Glucose,Whole Blood 140 mg/dL (75-99)
[2020-02-11] MEDS: IPRATROPIUM-ALBUTEROL 3 ML NEB INHALATION SCH (00:23)
[2020-02-11] MEDS ORDERED: IPRATROPIUM-ALBUTEROL 3 ML NEB INHALATION PRN (00:23)
[2020-02-11] MEDS: DEXTROSE 5%-0.45% NACL 1,000 ML IV SCH ×3 (01:29→20:07)
[2020-02-11] MEDS: PIPERACILLIN-TAZOBACTAM 3.375 GM in SODIUM CHLORIDE 0.9% 100 ML IVPB SCH ×3 (01:30→18:00)
[2020-02-11 04:55] LABS: Glucose,Whole Blood 146 mg/dL (75-99)
[2020-02-11] MEDS: INSULIN ASPART (NovoLOG) 100 UNIT/ML VIAL SQ SCH ×5 (04:55→20:07)
[2020-02-11] MEDS: LEVOTHYROXINE 25 MCG TAB PO SCH (06:34)
[2020-02-11 06:38] LABS: Anisocytosis Slight; HCT 34.3 % (34.0-46.0); HGB 10.6 gm/dL (11.4-16.0); Hypochromasia Marked; MCH 29.8 pg (25.0-35.0); MCHC 30.7 g/dL (31.0-37.0); MCV 96.9 fL (80.0-100.0); Mean Platelet Volume 9.8; Platelet Count 114 k/uL (150-450); RBC 3.54 m/uL (3.80-5.40); RDW 16.4 % (11.5-15.5); WBC 5.8 k/uL (3.8-10.6)
[2020-02-11 06:48] LABS: Calcium 7.6 mg/dL (8.4-10.2); Potassium 3.9 mmol/L (3.5-5.1)
--- NOTE | 2020-02-11 07:02 | XR ---
EXAMINATION TYPE: XR chest 1V DATE OF EXAM: 02/11/2020 CLINICAL HISTORY: Difficulty breathing progress study. TECHNIQUE: Single AP portable semiupright view of the chest is obtained. COMPARISON: Chest x-ray from one day earlier and older studies. FINDINGS: Background chronic emphysematous and pulmonary fibrotic changes with stable left basilar o pacity. Right lung remains clear. Cardiac silhouette size stable and upper limits of normal with athe rosclerotic thoracic aorta. Osseous structures remain demineralized. IMPRESSION: There are chronic changes with persistent left basilar opacity that has been present back through July favoring scarring and small pleural thickening. No new acute infiltrate clearly seen.
[2020-02-11 07:24] LABS: Band Neutrophils % 1 %; Lymphocytes # (M) 0.64 k/uL (1.0-4.8); Monocytes # (M) 0.12 k/uL (0-1.0); Neutrophils % (M) 86 %; Nucleated Red Blood Cells 0 /100 WBC (0-0); Total Cells Counted 100
[2020-02-11] MEDS ORDERED: IPRATROPIUM-ALBUTEROL 3 ML NEB INHALATION SCH (08:00)
[2020-02-11] MEDS ORDERED: POTASSIUM CHLORIDE ER 20 MEQ TAB.ER PO SCH (08:00)
[2020-02-11 08:27] LABS: Glucose,Whole Blood 128 mg/dL (75-99)
[2020-02-11] MEDS: NICOTINE 14MG/24HR PATCH TRANSDERM SCH (09:00)
[2020-02-11] MEDS: PANTOPRAZOLE 40 MG/10 ML VIAL IVP SCH (09:00)
[2020-02-11] MEDS: SERTRALINE 100 MG TAB PO SCH (09:01)
[2020-02-11] MEDS: HEPARIN SODIUM,PORCINE 5,000 UNIT/ML 1 ML VIAL SQ SCH ×2 (09:01→20:06)
[2020-02-11 09:49] VITALS: BMI 20.9
[2020-02-11 11:49] LABS: Glucose,Whole Blood 154 mg/dL (75-99)
--- NOTE | 2020-02-11 12:26 | PN ---
PROGRESS NOTE PULMONARY/CRITICAL CARE PROGRESS NOTE: DATE OF SERVICE: 02/11/2020 This is a 74-year-old female we saw a couple days ago in consultation in the phase 1 recovery area. She was seen initially in the emergency room back on February 05, complaining of nausea, vomiting, and diarrhea. She was thought to have gallstone pancreatitis. The patient went for a laparoscopic cholecystectomy. Today is postop day #2. She was initially extubated in the recovery area and then for unclear reasons maybe hypoxemic respiratory failure or respiratory distress, she required re- intubation. Yesterday, we started late in the day. We did weaning parameters and a cuff leak. She looks good and we went ahead and decided to extubate her. Currently, she is on room air. She is getting D5 of 0.45 at 100 mL an hour. Dopamine has been weaned off. She did have group D Enterococcus and gram-negative bacilli in her urine. She is on Zosyn for the time being. The patient can be transferred to the general medical floor without telemetry. She is doing that well. Surgeon is Dr. Villalta. She has no particular complaints today. Her primary attending doctor is Dr. Frazier. Current vital signs are reviewed. Temperature is 98.1, heart rate 70, respiratory rate 15, blood pressure 124/82 mean 96, 2 L saturation 97%. There is no acute distress. HEENT: Examination is grossly unremarkable. Mucous membranes are moist. NECK: Supple, full range of motion. No adenopathy. Neck veins are flat. CARDIOVASCULAR: Examination reveals regular rhythm and rate. Heart rate 70. S1, S2 normal. LUNGS: Reveal mostly clear breath sounds. There are a few scattered rhonchi. No wheezes or crackles. ABDOMEN: Soft. EXTREMITIES: Intact. No cyanosis, clubbing, or edema. SKIN: Without rash. NEUROLOGIC: Examination reveals it to be normal. Nonfocal. She is a bit sleepy. LABS: Reviewed. White count 5.8, hemoglobin 10.6, hematocrit 34.3, platelet count 114,000. Sodium, potassium normal. Chloride is 114, CO2 is 20 and anion gap is 3. BUN and creatinine were 33 and 2.03. Calcium 7.6. Microbiology showing gram-negative bacilli and group D Enterococcus in the urine. The patient did have a chest x-ray. Chest x-ray shows some chronic changes of the left base. MEDICATIONS: Reviewed. She is currently on aspirin, IV, subcu heparin, insulin, levothyroxine, Narcan, nicotine patch, Zofran, Protonix, Zosyn, potassium replacement, Zoloft, and Desyrel. ASSESSMENT: 1. Postoperative day #2 status post laparoscopic cholecystectomy with subsequent respiratory failure requiring re-intubation on February 08 and successful extubation on February 10, 2020. 2. Acute hypoxemic respiratory failure, resolved. 3. Right mainstem intubation, status post endotracheal tube being pulled back 2.5 cm. 4. Possible urinary tract infection. 5. History of tobacco use and possible underlying COPD. 6. Diabetes mellitus. 7. History of hypertension. 8. Gallstone pancreatitis. 9. History of pneumonia. 10.Chronic anxiety. 11.Previous history of urinary tract infection. 12.Group D Enterococcus and gram-negative bacilli and it is in the current urine. PLAN: The patient is currently on Zosyn. Will have the primary service adjust antibiotics. The patient's IV is D5 at 0.451 at 100 mL an hour. Dopamine is being weaned off. Room air saturations are 97%. The patient can go to the general medical floor without telemetry. After today, will see the patient just as needed. No additional recommendations are made. Prognosis is guarded. MMODL / IJN: [id number] /
--- NOTE | 2020-02-11 13:36 | P.PN ---
Subjective Progress Note Date: 02/11/20 This is a 74-year-old female patient of mine with past history for COPD, diabetes mellitus type 2 insulin requiring, hypertension, hyperlipidemia, generalized osteoarthritis, generalized anxiety disorder, AAA. Patient has history of osteoarthritis and under the care of Dr. Lara status post left total knee arthroplasty last July. Subsequently, she was readmitted and underwent patellar retinaculum and quadriceps tendon repair. She was readmitted in September for surgical wound ulceration eschar with flap necrosis and underwent I&D and was last admiited to our hospital on 07/2019 and was seen by ID and Vascular and it was recommended for her to have left AKA but she declined and wanted to continue with conservative management with chroniv oral antibiotics and pain control and she has a great support at home with her daughter and her , patient presented to the emergency department at [facility] yesterday with increased abdominal pain associated with nausea and vomiting she underwent computed tomography scan of the abdomen and pelvis that showed inflammatory changes of the pancreas also she appeared to have a chronic dissection of her aorta with abdominal aortic aneurysm at 3.8 cm, this was followed by ultrasound of the abdomen that showed cholelithiasis without ductal dilatation and stable abdominal aortic aneurysm at 3.8 cm, patient was placed on clear liquid diet started on IV fluid resuscitation was admitted to the hospital for evaluation general surgery consultation as well as GI consultation. 02/07: Patient states that she is feeling a little better today, pain is decreased. She has not had a bowel movement today. Patient did have hallucinations during the night and a director of safety was required. She is oriented 3 and can answer questions appropriately but the time of this evaluation, patient thinks there is a dog in the room. Patient has been seen by Dr. Villalta and plan is for laparoscopic cholecystectomy tomorrow. We will contact the patient's and discuss plan of care. Repeat lipase 247. Blood sugar this morning was 56 and patient was started on a D5 0.9 normal saline fluid. 02/08: Patient has been afebrile, heart rate 53, blood pressure 152/65, pulse ox 99% on room air. Repeat CBC reveals WBC 6.9, hemoglobin 11.8, platelet count 115. Sodium 138, potassium 4.0, chloride 113, CO2 17.3, BUN 48 and creatinine 2.1. Blood sugars have been running in the 60s. Alkaline phosphatase 147, total bilirubin 0.4, ALT 28 and AST 43. Yesterday, discussed surgical option with the patient's family. They would like to move forward with this. She is scheduled for laparoscopic cholecystectomy today with Dr. Villalta. 02/09: Patient underwent surgery yesterday with Dr. Villalta but had difficulty in the PACU was unresponsive and hypoxic along with bradycardia and hypotension. She was placed on simple mask with pulse ox of 98% with worsening oxygen saturations down to 83% on 100% nonrebreather. Patient was placed on BiPAP followed by reintubation and transferred to the intensive care unit. Patient remains intubated and on mechanical ventilation with tidal volume 350, FiO2 40, PEEP of 5. Patient has been started on a dopamine drip, off dopamine at the time of this evaluation. Blood pressure currently 99/59, heart rate 61, temperature has been low at 96.3. Patient is awake and alert. She is opening her eyes and able to communicate by nodding. Anticipate that she will be weaned off ventilator this afternoon. Repeat chest x-ray reveals persistent small left pleural effusion. 02/10: Patient remains in intensive care unit and was successfully extubated yesterday. She has been afebrile, heart rate 70, blood pressure 124/82, pulse ox 97% on 2 L nasal cannula. Repeat blood work reveals WBC 5.8, hemoglobin 10.6, platelet count 114. Sodium 137, potassium 3.9, chloride 114, CO2 20, BUN 33 and creatinine 2.03. Blood sugars have been running between 128 and 154. Urine culture has been finalized with Klebsiella pneumoniae and Enterococcus faecalis. Sputum culture in progress and blood cultures are showing no growth from the . Patient has been cleared to transfer to [facility] without telem etry by Dr. Moore. Patient is to start a regular diet today for lunch. Objective - Vital Signs Vital signs: Vital Signs Temp 98.1 F 02/11/20 04:00 Pulse 70 02/11/20 07:39 Resp 15 02/11/20 07:00 BP 124/82 02/11/20 07:00 Pulse Ox 97 02/11/20 07:00 Intake & Output 02/10/20 02/11/20 02/11/20 18:59 06:59 18:59 Intake Total 0376.153 2396 Output Total 290 775 Balance 1249.687 715 Weight 57.062 kg 57.062 kg Intake: IV 1220 1490 0.9 sodium chloride 240 160 carrier Dextrose 5%-0.45% NaCl 1, 980 1230 000 ml @ 100 mls/hr IV . Q10H [facility] Rx#:[id number] Piperacillin-Tazobactam 3 100 .375 gm In Sodium Chloride 0.9% 100 ml @ 25 mls/hr IVPB Q12HR [facility] Rx #:[id number] Intake, IV Titration 319.687 Amount DOPamine DRIP 800 mg In 47.602 Dextrose/Water 1 250ml. bag @ 1 MCG/KG/MIN 0.953 mls/hr IV .Q24H [facility] Rx#: [id number] Piperacillin-Tazobactam 3 200 .375 gm In Sodium Chloride 0.9% 100 ml @ 25 mls/hr IVPB Q12HR [facility] Rx #:[id number] propofoL 1,000 mg In 72.085 Empty Bag 1 bag @ Titrate IV .Q0M [facility] Rx#: [id number] Output: Urine 290 775 Other: Voiding Method Indwelling Catheter Indwelling Catheter Indwelling Catheter - Exam Review of Systems Constitutional: Reports anorexia, Reports chronic pain, Reports fatigue, Reports malaise, Reports weakness, Reports weight loss Eyes: denies blurred vision, denies bulging eye Ears, nose, mouth and throat: Denies dysphagia, Denies neck lump, Denies sore throat Cardiovascular: Reports decreased exercise tolerance, Reports dyspnea on exertion, Reports shortness of breath, Denies chest pain, Denies lightheadedness, Denies rapid heart beat, Denies syncope Respiratory: Denies congestion, Denies cough with sputum, Denies home oxygen, Denies sleep apnea, Denies snoring, Denies wheezing Gastrointestinal: Reports abdominal painimproved, denies bloating, Reports change in bowel habits, Reports loss of appetite, Reports nausea, denies vomiting Genitourinary: Denies dysuria, Denies nocturia Menstruation: Reports postmenopausal Musculoskeletal: Reports gait dysfunction, Reports low back pain, Reports morning stiffness Musculoskeletal: left: knee pain, knee stiffness, knee swelling, absent: ankle pain, ankle stiffness, ankle swelling, elbow pain, elbow stiffness, elbow swelling, foot pain, foot stiffness, foot swelling, hand pain, hand stiffness, hand swelling, hip pain, hip stiffness, hip swelling, shoulder pain, shoulder stiffness, shoulder swelling, wrist pain, wrist stiffness, wrist swelling Integumentary: Denies pruritus, Denies rash Neurological: Denies numbness, Denies weakness Psychiatric: Reports anxiety, Reports depression, reports hallucinations, Denies suicidal ideation Endocrine: Denies fatigue, Denies weight change Physical examination: GEN: This is a 74-year-old female. She is resting in ICU bed and appears to be comfortable. HEENT: Head is atraumatic, normocephalic, pupils were equal round reactive to light and recommendation, extraocular muscle movement were intact, mucous membranes of the mouth are somewhat dry. Neck: Supple, no JVP, decreased carotid upstroke bilaterally. Chest: Decreased breath sounds at bases, few rhonchi, no wheezes, no chest wall tenderness, no intercostal retractions. Heart: First heart sound is depressed, second heart sounds normal, there is systolic ejection murmur 2/6 located in the left sternal border. Abdomen: Soft, no rebound or guarding positive bowel sounds. Puncture sites show no signs of infection, no significant drainage. Coyne catheter draining clear kashif urine. Extremities: No edema, no calf tenderness significant muscle wasting, left knee with a chronic wound with osteomyelitis. Dorsalis pedis +1 bilaterally. Neurologic examination: Patient is awake alert and oriented 3. Cranial nerves II through XII are grossly intact. - Labs CBC & Chem 7: 02/11/20 05:43 02/11/20 05:43 Labs: Abnormal Lab Results - Last 24 Hours (Table) 02/10/20 02/10/20 02/10/20 Range/Units 11:36 16:05 20:30 RBC (3.80-5.40) m/uL Hgb (11.4-16.0) gm/dL MCHC (31.0-37.0) g/dL RDW (11.5-15.5) % Plt Count (150-450) k/uL Lymphocytes # (Manual) (1.0-4.8) k/uL Chloride (98-107) mmol/L Carbon Dioxide (22-30) mmol/L BUN (7-17) mg/dL Creatinine (0.52-1.04) mg/dL Glucose (74-99) mg/dL POC Glucose (mg/dL) 110 H 158 H 103 H (75-99) mg/dL Calcium (8.4-10.2) mg/dL 02/10/20 02/11/20 02/11/20 Range/Units 23:50 04:51 05:43 RBC 3.54 L (3.80-5.40) m/uL Hgb 10.6 L (11.4-16.0) gm/dL MCHC 30.7 L (31.0-37.0) g/dL RDW 16.4 H (11.5-15.5) % Plt Count 114 L (150-450) k/uL Lymphocytes # (Manual) 0.64 L (1.0-4.8) k/uL Chloride (98-107) mmol/L Carbon Dioxide (22-30) mmol/L BUN (7-17) mg/dL Creatinine (0.52-1.04) mg/dL Glucose (74-99) mg/dL POC Glucose (mg/dL) 140 H 146 H (75-99) mg/dL Calcium (8.4-10.2) mg/dL 02/11/20 02/11/20 Range/Units 05:43 08:25 RBC (3.80-5.40) m/uL Hgb (11.4-16.0) gm/dL MCHC (31.0-37.0) g/dL RDW (11.5-15.5) % Plt Count (150-450) k/uL Lymphocytes # (Manual) (1.0-4.8) k/uL Chloride 114 H (98-107) mmol/L Carbon Dioxide 20 L (22-30) mmol/L BUN 33 H (7-17) mg/dL Creatinine 2.03 H (0.52-1.04) mg/dL Glucose 134 H (74-99) mg/dL POC Glucose (mg/dL) 128 H (75-99) mg/dL Calcium 7.6 L (8.4-10.2) mg/dL Microbiology - Last 24 Hours (Table) 02/08/20 02:40 Urine Culture - Preliminary Urine,Voided Klebsiella pneumoniae Group D Enterococcus 02/10/20 00:24 Gram Stain - Preliminary Sputum Sputum Culture - Preliminary 02/07/20 09:45 Blood Culture - Preliminary Blood No Growth after 72 hours 02/07/20 09:26 Blood Culture - Preliminary Blood No Growth after 72 hours Assessment and Plan Plan: 1. Acute pancreatitis likely related to cholelithiasis status post laparoscopic cholecystectomy. Continue IV fluid D5 0.45 normal saline at 100 mL an hour, continue patient on Zofran 4 mg IV push every 6 hours as needed, continue Protonix 40 mg IV push every 24 hours. 2. Acute hypoxic respiratory failure, unexpected postop complication. Successfully extubated, managed by pneumatic tester. 3. Anion and non-anion gap metabolic acidosis. Stable. 4. Klebsiella and enterococcus Urinary tract infection with sepsis. Continue IV fluid resuscitation, continue Zosyn 3.375 g IV piggyback every 8 hours. 5. Acute kidney injury and top of chronic kidney disease stage III. Continue I V fluid resuscitation monitor the patient CMP over the next 24 hours. 6. Accelerated hypertension with history of hypertension and hypertensive cardio vascular disease. Hold Coreg 25 mg orally twice every day as well as losartan 50 mg orally once every day. 7. Diabetes mellitus type 2 uncontrolled with hypoglycemia. Continue on sliding scale insulin. Hold off glipizide for now. 8. Hyperlipidemia. 9. Chronic osteomyelitis of the left knee. Hold off doxycycline for now. 10. Recurrent Depression. Continue Zoloft 100 mg orally once every day. 11. Chronic aortic dissection with abdominal aortic aneurysm. Stable. 12. Chronic tobacco use and dependence with COPD. Continue nicotine patch 14 mg once every day. 13. Poor appetite with cachexia and severe protein calorie malnutrition continue with Glucerna 3 times daily. 14. Hypothyroidism. Continue with synthroid 25 mcg orally daily. 15. DVT prophylaxis. Continue patient on heparin 5000 units subcutaneously every 12 hours for 16. GI prophylaxis. Continue patient on Protonix 40 mg IV push every 24 hours. 17. Visual hallucinations. Possibly due to combination of medication effect, hospitalization, illness and possible early dementia. Patient is no code. Discharge plan: Home most likely. To be determined. PT and OT on consult. Impression and plan of care have been directed as dictated by the signing physician. Annie Ba nurse practitioner acting as scribe for signing physician.
--- NOTE | 2020-02-11 15:21 | P.PN ---
Subjective Progress Note Date: 02/11/20 CHIEF COMPLAINT: Gallstone pancreatitis HISTORY OF PRESENT ILLNESS: Patient is status post laparoscopic cholecystectomy With Dr. olmedo. Patient was successfully extubated yesterday. She's currently sitting in a bedside chairHis only requiring 2 L of oxygen. Patient is currently a MedSurg overflow. Patient is passing gas.Afebrile. WBC 5.8 PHYSICAL EXAM: VITAL SIGNS: Reviewed. GENERAL: Well-developed in no acute distress. HEENT: No sclera icterus. Extraocular movements grossly intact. Moist buccal mucosa. Head is atraumatic, normocephalic. ABDOMEN: Soft. Nondistended. Dressing clean dry and intact NEUROLOGIC: Patient intubated ASSESSMENT: 1. Cholecystitis status post Laparoscopic cholecystectomy. 2. Gallstone pancreatitis 3. Acute hypoxic respiratory failure PLAN: -Continue regular diet -Continue IV fluids -Continue GI and DVT prophylaxis Physician Rn Med Surg note has been reviewed by physician. Signing provider agrees with the documented findings, assessment, and plan of care. Objective - Vital Signs Vital signs: Vital Signs Temp 98.1 F 02/11/20 04:00 Pulse 70 02/11/20 07:39 Resp 15 02/11/20 07:00 BP 124/82 02/11/20 07:00 Pulse Ox 97 02/11/20 07:00 Intake & Output 02/10/20 02/11/20 02/11/20 18:59 06:59 18:59 Intake Total 1375.936 2378 Output Total 290 775 Balance 1249.687 715 Weight 57.062 kg 57.062 kg Intake: IV 1220 1490 0.9 sodium chloride 240 160 carrier Dextrose 5%-0.45% NaCl 1, 980 1230 000 ml @ 100 mls/hr IV . Q10H [facility] Rx#:[id number] Piperacillin-Tazobactam 3 100 .375 gm In Sodium Chloride 0.9% 100 ml @ 25 mls/hr IVPB Q12HR [facility] Rx #:[id number] Intake, IV Titration 319.687 Amount DOPamine DRIP 800 mg In 47.602 Dextrose/Water 1 250ml. bag @ 1 MCG/KG/MIN 0.953 mls/hr IV .Q24H [facility] Rx#: [id number] Piperacillin-Tazobactam 3 200 .375 gm In Sodium Chloride 0.9% 100 ml @ 25 mls/hr IVPB Q12HR [facility] Rx #:[id number] propofoL 1,000 mg In 72.085 Empty Bag 1 bag @ Titrate IV .Q0M [facility] Rx#: [id number] Output: Urine 290 775 Other: Voiding Method Indwelling Catheter Indwelling Catheter Indwelling Catheter - Labs CBC & Chem 7: 02/11/20 05:43 02/11/20 05:43 Labs: Abnormal Lab Results - Last 24 Hours (Table) 02/10/20 02/10/20 02/10/20 Range/Units 16:05 20:30 23:50 RBC (3.80-5.40) m/uL Hgb (11.4-16.0) gm/dL MCHC (31.0-37.0) g/dL RDW (11.5-15.5) % Plt Count (150-450) k/uL Lymphocytes # (Manual) (1.0-4.8) k/uL Chloride (98-107) mmol/L Carbon Dioxide (22-30) mmol/L BUN (7-17) mg/dL Creatinine (0.52-1.04) mg/dL Glucose (74-99) mg/dL POC Glucose (mg/dL) 158 H 103 H 140 H (75-99) mg/dL Calcium (8.4-10.2) mg/dL 02/11/20 02/11/20 02/11/20 Range/Units 04:51 05:43 05:43 RBC 3.54 L (3.80-5.40) m/uL Hgb 10.6 L (11.4-16.0) gm/dL MCHC 30.7 L (31.0-37.0) g/dL RDW 16.4 H (11.5-15.5) % Plt Count 114 L (150-450) k/uL Lymphocytes # (Manual) 0.64 L (1.0-4.8) k/uL Chloride 114 H (98-107) mmol/L Carbon Dioxide 20 L (22-30) mmol/L BUN 33 H (7-17) mg/dL Creatinine 2.03 H (0.52-1.04) mg/dL Glucose 134 H (74-99) mg/dL POC Glucose (mg/dL) 146 H (75-99) mg/dL Calcium 7.6 L (8.4-10.2) mg/dL 02/11/20 02/11/20 Range/Units 08:25 11:48 RBC (3.80-5.40) m/uL Hgb (11.4-16.0) gm/dL MCHC (31.0-37.0) g/dL RDW (11.5-15.5) % Plt Count (150-450) k/uL Lymphocytes # (Manual) (1.0-4.8) k/uL Chloride (98-107) mmol/L Carbon Dioxide (22-30) mmol/L BUN (7-17) mg/dL Creatinine (0.52-1.04) mg/dL Glucose (74-99) mg/dL POC Glucose (mg/dL) 128 H 154 H (75-99) mg/dL Calcium (8.4-10.2) mg/dL Microbiology - Last 24 Hours (Table) 02/10/20 00:24 Gram Stain - Preliminary Sputum Sputum Culture - Preliminary Eli albicans 02/08/20 02:40 Urine Culture - Final Urine,Voided Klebsiella pneumoniae Enterococcus faecalis 02/07/20 09:45 Blood Culture - Preliminary Blood No Growth after 96 hours 02/07/20 09:26 Blood Culture - Preliminary Blood No Growth after 96 hours
[2020-02-11 16:57] LABS: Glucose,Whole Blood 146 mg/dL (75-99)
[2020-02-11 20:03] LABS: Glucose,Whole Blood 150 mg/dL (75-99)
[2020-02-11] MEDS: traZODone HCL 100 MG TAB PO SCH (20:06)
[2020-02-11] MEDS: ASPIRIN 81 MG PO SCH (20:06)
[2020-02-12] MEDS: PIPERACILLIN-TAZOBACTAM 3.375 GM in SODIUM CHLORIDE 0.9% 100 ML IVPB SCH (01:05)
[2020-02-12 05:55] LABS: Anisocytosis Slight; HGB 11.2 gm/dL (11.4-16.0); Hypochromasia Marked; MCHC 31.2 g/dL (31.0-37.0); MCV 96.3 fL (80.0-100.0); Mean Platelet Volume 9.1; Platelet Count 104 k/uL (150-450); RBC 3.74 m/uL (3.80-5.40); RDW 16.3 % (11.5-15.5)
[2020-02-12 06:04] LABS: Albumin 2.2 g/dL (3.5-5.0); Calcium 8.3 mg/dL (8.4-10.2); Potassium 4.2 mmol/L (3.5-5.1); Total Bilirubin 0.6 mg/dL (0.2-1.3); Total Protein 5.4 g/dL (6.3-8.2)
[2020-02-12] MEDS: LEVOTHYROXINE 25 MCG TAB PO SCH (06:15)
[2020-02-12] MEDS: DEXTROSE 5%-0.45% NACL 1,000 ML IV SCH (06:16)
[2020-02-12] MEDS: INSULIN ASPART (NovoLOG) 100 UNIT/ML VIAL SQ SCH ×4 (06:35→20:20)
[2020-02-12 06:36] LABS: Glucose,Whole Blood 73 mg/dL (75-99)
--- NOTE | 2020-02-12 07:32 | XR ---
EXAMINATION TYPE: XR chest 1V DATE OF EXAM: 02/12/2020 COMPARISON: 02/11/2020 HISTORY: 74-year-old female vent management TECHNIQUE: Single frontal view of the chest is obtained. FINDINGS: Heart normal size. Atherosclerotic arch calcifications. Hyperinflation. Mild interstitial prominence similar. Patchy retrocardiac and left basilar opacity. It appears to be a curvilinear sliver of air p rojecting at the right base. IMPRESSION: 1. COPD with continued left basilar infiltrate. 2. New curvilinear lucency at the right base. This could reflect a band of atelectasis or trace free intraperitoneal air below the right hemidiaphragm. Further correlation with patient's symptoms and fo r any signs of an acute abdomen or recent surgery is recommended. Consider dedicated abdominal exam i f further evaluation is needed. Findings called to nurse Nair on 2SICU at 7:26AM.
[2020-02-12] MEDS ORDERED: IPRATROPIUM-ALBUTEROL 3 ML NEB INHALATION PRN (07:58)
[2020-02-12] MEDS: IPRATROPIUM-ALBUTEROL 3 ML NEB INHALATION SCH ×3 (08:27→18:48)
--- NOTE | 2020-02-12 10:06 | PN ---
PROGRESS NOTE PULMONARY/CRITICAL CARE PROGRESS NOTE: DATE OF SERVICE: 02/12/2020 This is a 74-year-old female who we saw a couples of days ago in the phase 1 recovery area. She was brought into the emergency room way back on February 06, 2020 complaining of nausea, vomiting and diarrhea. She was discovered to have gallstone pancreatitis. She underwent a laparoscopic cholecystectomy. She is postiop day #3. Post-extubation, she developed respiratory distress and/or failure and was reintubated. yesterday. On February 09 she was extubated successfully. She has a history of acute hypoxemic respiratory failure, right mainstem intubation, possible urinary tract infection, history of tobacco use and possible underlying COPD, diabetes mellitus, hypertension, gallstone pancreatitis, history of pneumonia, chronic anxiety, previous history of urinary tract infection and group D Enterococcus and gram-negative bacilli in the urine currently. I guess the gram-negative with Klebsiella pneumoniae and also Enterococcus faecalis. Anyway, she is doing much better. A bit sleepy today. She is not receiving any supplemental oxygen. She is getting 0.9 at KVO and D5 0.45 at 80 mL an hour. I am going to DC the Zosyn in favor of Cipro, which will cover both the Klebsiella and enterococcus. In addition, will add some DuoNeb t.i.d. and p.r.n. She does need to do some additional work on the incentive spirometer and we let the nurses know about that. Current vital signs are reviewed, temperature is 98m heart rate is 70, respiratory rate 15, blood pressure 168/81 mean 110, room air saturation 96%. Appears in no acute distress. HEENT: Examination is grossly unremarkable. Mucous membranes are moist. No oral lesions. NECK: Supple, full range of motion. No adenopathy. Neck veins are flat. CARDIOVASCULAR: Examination reveals regular rhythm and rate. Heart rate 74. S1, S2 normal. LUNGS: Reveal clear breath sounds. Breath sounds are diminished throughout. ABDOMEN: Soft, bowel sounds are heard. EXTREMITIES: Intact. No cyanosis, clubbing, or edema. SKIN: Without rash. NEUROLOGIC: Examination is nonfocal. LABS: Reviewed. White count 6, hemoglobin 11.2, hematocrit 36.0, platelet count 104,000, sodium 138, potassium 4.3, chloride 117, CO2 17, anion gap is 4. BUN and creatinine were 28 and 1.90. Calcium 8.3, alkaline phosphatase 184, albumin 2.2. Microbiology showing Klebsiella pneumoniae and Enterococcus faecalis in the urine from February 07. She is on ciprofloxacin orally for that. Zosyn was discontinued. Chest x-ray from 02/11 shows COPD with left basilar infiltrate/atelectasis. Medications are reviewed. All her medications are appropriate. ASSESSMENT: 1. Postoperative day #3, status post laparoscopic cholecystectomy for gallstone pancreatitis, with subsequent respiratory failure requiring re-intubation on February 08, and successful extubation on February 10, 2020. 2. Acute hypoxemic respiratory failure, resolved. 3. Right mainstem intubation, resolved. 4. Klebsiella pneumoniae Enterococcus faecalis urinary tract infection, currently being treated with ciprofloxacin. 5. History of tobacco use and possible underlying COPD. 6. Diabetes mellitus. 7. History of hypertension. 8. Gallstone pancreatitis. 9. History of pneumonia. 10.Chronic anxiety. 11.Prior history of urinary tract infection. PLAN: The patient is doing well. The patient could be discharged out of the unit. She can go to the general medical floor without telemetry. No additional recommendations are made. Will continue to follow. Prognosis is guarded. MMODL / IJN: [id number] /
[2020-02-12] MEDS: PANTOPRAZOLE 40 MG/10 ML VIAL IVP SCH (10:51)
[2020-02-12] MEDS: NICOTINE 14MG/24HR PATCH TRANSDERM SCH (10:51)
[2020-02-12] MEDS: HEPARIN SODIUM,PORCINE 5,000 UNIT/ML 1 ML VIAL SQ SCH ×2 (10:52→20:11)
[2020-02-12] MEDS: SERTRALINE 100 MG TAB PO SCH (10:56)
[2020-02-12] MEDS: CIPROFLOXACIN HCL 500 MG TAB PO SCH (10:56)
--- NOTE | 2020-02-12 11:38 | P.PN ---
Subjective Progress Note Date: 02/12/20 CHIEF COMPLAINT: Gallstone pancreatitis HISTORY OF PRESENT ILLNESS: Patient is status post laparoscopic cholecystectomy With Dr. olmedo. Patient is currently in the ICU is [facility] They are anticipating the patient will be transferred to regular medical floor today. She is tolerating regular diet. She did have a bowel movement. She denies any abdominal pain. She denies any nausea or vomiting.She is afebrile chest x-ray COPD with continued left basilar infiltrate. New curvilinear lucency at the right base could reflect a band of atelectasis or trace free intraperitoneal air low the right hemidiaphragm. The free air is due to patient's recent surgery PHYSICAL EXAM: VITAL SIGNS: Reviewed. GENERAL: Well-developed in no acute distress. HEENT: No sclera icterus. Extraocular movements grossly intact. Moist buccal mucosa. Head is atraumatic, normocephalic. ABDOMEN: Soft. Nondistended. Incision site is clean dry and intact NEUROLOGIC: Patient intubated ASSESSMENT: 1. Cholecystitis status post Laparoscopic cholecystectomy. Postop day #3 2. Gallstone pancreatitis 3. Acute hypoxic respiratory failure. Requiring to be reintubated and has now been successfully extubated PLAN: -Continue regular diet -Continue GI and DVT prophylaxis Physician Marine Fitter note has been reviewed by physician. Signing provider agrees with the documented findings, assessment, and plan of care. Objective - Vital Signs Vital signs: Vital Signs Temp 98 F 02/12/20 06:30 Pulse 78 02/12/20 08:40 Resp 15 02/12/20 06:30 BP 168/81 02/12/20 06:30 Pulse Ox 96 02/12/20 06:30 Intake & Output 02/11/20 02/12/20 02/12/20 18:59 06:59 18:59 Intake Total 800 1620 Output Total 1000 1225 Balance -200 395 Weight 57.062 kg 57.062 kg Intake: IV 800 1620 0.9 sodium chloride 20 carrier Dextrose 5%-0.45% NaCl 1, 800 1600 000 ml @ 100 mls/hr IV . Q10H [facility] Rx#:[id number] Output: Urine 1000 1225 Other: Voiding Method Indwelling Catheter Indwelling Catheter - Labs CBC & Chem 7: 02/12/20 05:32 02/12/20 05:32 Labs: Abnormal Lab Results - Last 24 Hours (Table) 02/11/20 02/11/20 02/11/20 Range/Units 11:48 16:55 20:02 RBC (3.80-5.40) m/uL Hgb (11.4-16.0) gm/dL RDW (11.5-15.5) % Plt Count (150-450) k/uL Chloride (98-107) mmol/L Carbon Dioxide (22-30) mmol/L BUN (7-17) mg/dL Creatinine (0.52-1.04) mg/dL Glucose (74-99) mg/dL POC Glucose (mg/dL) 154 H 146 H 150 H (75-99) mg/dL Calcium (8.4-10.2) mg/dL Alkaline Phosphatase (38-126) U/L Total Protein (6.3-8.2) g/dL Albumin (3.5-5.0) g/dL 02/12/20 02/12/20 02/12/20 Range/Units 05:32 05:32 06:34 RBC 3.74 L (3.80-5.40) m/uL Hgb 11.2 L (11.4-16.0) gm/dL RDW 16.3 H (11.5-15.5) % Plt Count 104 L (150-450) k/uL Chloride 117 H (98-107) mmol/L Carbon Dioxide 17 L (22-30) mmol/L BUN 28 H (7-17) mg/dL Creatinine 1.90 H (0.52-1.04) mg/dL Glucose 63 L (74-99) mg/dL POC Glucose (mg/dL) 73 L (75-99) mg/dL Calcium 8.3 L (8.4-10.2) mg/dL Alkaline Phosphatase 184 H (38-126) U/L Total Protein 5.4 L (6.3-8.2) g/dL Albumin 2.2 L (3.5-5.0) g/dL Microbiology - Last 24 Hours (Table) 02/10/20 00:24 Gram Stain - Final Sputum Sputum Culture - Final Eli albicans Eli sp,not albicans/galbr 02/08/20 02:40 Urine Culture - Final Urine,Voided Klebsiella pneumoniae Enterococcus faecalis 02/07/20 09:45 Blood Culture - Preliminary Blood No Growth after 96 hours 02/07/20 09:26 Blood Culture - Preliminary Blood No Growth after 96 hours
--- NOTE | 2020-02-12 12:12 | P.PN ---
Subjective Progress Note Date: 02/12/20 This is a 74-year-old female patient of mine with past history for COPD, diabetes mellitus type 2 insulin requiring, hypertension, hyperlipidemia, generalized osteoarthritis, generalized anxiety disorder, AAA. Patient has history of osteoarthritis and under the care of Dr. Lara status post left total knee arthroplasty last July. Subsequently, she was readmitted and underwent patellar retinaculum and quadriceps tendon repair. She was readmitted in September for surgical wound ulceration eschar with flap necrosis and underwent I&D and was last admiited to our hospital on 07/2019 and was seen by ID and Vascular and it was recommended for her to have left AKA but she declined and wanted to continue with conservative management with chroniv oral antibiotics and pain control and she has a great support at home with her daughter and her , patient presented to the emergency department at [facility] yesterday with increased abdominal pain associated with nausea and vomiting she underwent computed tomography scan of the abdomen and pelvis that showed inflammatory changes of the pancreas also she appeared to have a chronic dissection of her aorta with abdominal aortic aneurysm at 3.8 cm, this was followed by ultrasound of the abdomen that showed cholelithiasis without ductal dilatation and stable abdominal aortic aneurysm at 3.8 cm, patient was placed on clear liquid diet started on IV fluid resuscitation was admitted to the hospital for evaluation general surgery consultation as well as GI consultation. 02/07: Patient states that she is feeling a little better today, pain is decreased. She has not had a bowel movement today. Patient did have hallucinations during the night and a safety grooving machine operator was required. She is oriented 3 and can answer questions appropriately but the time of this evaluation, patient thinks there is a dog in the room. Patient has been seen by Dr. Villalta and plan is for laparoscopic cholecystectomy tomorrow. We will contact the patient's and discuss plan of care. Repeat lipase 247. Blood sugar this morning was 56 and patient was started on a D5 0.9 normal saline fluid. 02/08: Patient has been afebrile, heart rate 53, blood pressure 152/65, pulse ox 99% on room air. Repeat CBC reveals WBC 6.9, hemoglobin 11.8, platelet count 115. Sodium 138, potassium 4.0, chloride 113, CO2 17.3, BUN 48 and creatinine 2.1. Blood sugars have been running in the 60s. Alkaline phosphatase 147, total bilirubin 0.4, ALT 28 and AST 43. Yesterday, discussed surgical option with the patient's family. They would like to move forward with this. She is scheduled for laparoscopic cholecystectomy today with Dr. Villalta. 02/09: Patient underwent surgery yesterday with Dr. Villalta but had difficulty in the PACU was unresponsive and hypoxic along with bradycardia and hypotension. She was placed on simple mask with pulse ox of 98% with worsening oxygen saturations down to 83% on 100% nonrebreather. Patient was placed on BiPAP followed by reintubation and transferred to the intensive care unit. Patient remains intubated and on mechanical ventilation with tidal volume 350, FiO2 40, PEEP of 5. Patient has been started on a dopamine drip, off dopamine at the time of this evaluation. Blood pressure currently 99/59, heart rate 61, temperature has been low at 96.3. Patient is awake and alert. She is opening her eyes and able to communicate by nodding. Anticipate that she will be weaned off ventilator this afternoon. Repeat chest x-ray reveals persistent small left pleural effusion. 02/10: Patient remains in intensive care unit and was successfully extubated yesterday. She has been afebrile, heart rate 70, blood pressure 124/82, pulse ox 97% on 2 L nasal cannula. Repeat blood work reveals WBC 5.8, hemoglobin 10.6, platelet count 114. Sodium 137, potassium 3.9, chloride 114, CO2 20, BUN 33 and creatinine 2.03. Blood sugars have been running between 128 and 154. Urine culture has been finalized with Klebsiella pneumoniae and Enterococcus faecalis. Sputum culture in progress and blood cultures are showing no growth from the . Patient has been cleared to transfer to [facility] without telem etry by Dr. Moore. Patient is to start a regular diet today for lunch. 02/11: Patient remains in the intensive care unit and waiting for [facility] bed. She has been hemodynamically stable, blood pressure 168/81, heart rate 74, afebrile, pulse ox 96% on room air. Repeat blood work reveals WBC 6, hemoglobin 11.2, platelet count 104. Sodium 138, potassium 4.2, chloride 117, CO2 17, BUN 28 creatinine 1.9. Blood sugars running between 63 and 150. Total bilirubin 0.6, AST 36, ALT 34, alkaline Phosphatase 184. Dr. Stouts changed IV Zosyn to ciprofloxacin and DuoNeb treatments ordered. Patient is tolerating a regular diet. Abdominal pain is controlled. She denies having any nausea or vomiting. Coyne catheter will be removed today. IV fluids discontinued and monitor blood sugars and preparation for discharge. Patient will be restarted on oral Treichlers. Objective - Vital Signs Vital signs: Vital Signs Temp 98 F 02/12/20 06:30 Pulse 78 02/12/20 08:40 Resp 15 02/12/20 06:30 BP 168/81 02/12/20 06:30 Pulse Ox 96 02/12/20 06:30 Intake & Output 02/11/20 02/12/20 02/12/20 18:59 06:59 18:59 Intake Total 800 1620 Output Total 1000 1225 Balance -200 395 Weight 57.062 kg 57.062 kg Intake: IV 800 1620 0.9 sodium chloride 20 carrier Dextrose 5%-0.45% NaCl 1, 800 1600 000 ml @ 100 mls/hr IV . Q10H [facility] Rx#:[id number] Output: Urine 1000 1225 Other: Voiding Method Indwelling Catheter Indwelling Catheter - Exam Review of Systems Constitutional: Reports anorexia, Reports chronic pain, Reports fatigue, Reports malaise, Reports weakness, Reports weight loss Eyes: denies blurred vision, denies bulging eye Ears, nose, mouth and throat: Denies dysphagia, Denies neck lump, Denies sore throat Cardiovascular: Reports decreased exercise tolerance, Reports dyspnea on ex ertion, Reports shortness of breath, Denies chest pain, Denies lightheadedness, Denies rapid heart beat, Denies syncope Respiratory: Denies congestion, Denies cough with sputum, Denies home oxygen, Denies sleep apnea, Denies snoring, Denies wheezing Gastrointestinal: Denies abdominal pain, denies bloating, Reports change in bowel habits, Reports loss of appetite, denies nausea, denies vomiting Genitourinary: Denies dysuria, Denies nocturia Menstruation: Reports postmenopausal Musculoskeletal: Reports gait dysfunction, Reports low back pain, Reports morning stiffness Musculoskeletal: left: knee pain, knee stiffness, knee swelling, absent: ankle pain, ankle stiffness, ankle swelling, elbow pain, elbow stiffness, elbow swelling, foot pain, foot stiffness, foot swelling, hand pain, hand stiffness, hand swelling, hip pain, hip stiffness, hip swelling, shoulder pain, shoulder stiffness, shoulder swelling, wrist pain, wrist stiffness, wrist swelling Integumentary: Denies pruritus, Denies rash Neurological: Denies numbness, Denies weakness Psychiatric: Reports anxiety, Reports depression, reports hallucinations, Denies suicidal ideation Endocrine: Denies fatigue, Denies weight change Physical examination: GEN: This is a 74-year-old female. She is resting in ICU bed and appears to be comfortable and in no acute distress. HEENT: Head is atraumatic, normocephalic, pupils were equal round reactive to light and recommendation, extraocular muscle movement were intact, mucous membranes of the mouth are somewhat dry. Neck: Supple, no JVP, decreased carotid upstroke bilaterally. Chest: Decreased breath sounds at bases, few rhonchi, no wheezes, no chest wall tenderness, no intercostal retractions. Heart: First heart sound is depressed, second heart sounds normal, there is systolic ejection murmur 2/6 located in the left sternal border. Abdomen: Soft, no rebound or guarding positive bowel sounds. Puncture sites show no signs of infection, no significant drainage. Coyne catheter draining clear kashif urine. Extremities: No edema, no calf tenderness significant muscle wasting, left knee with a chronic wound with osteomyelitis. Dorsalis pedis +1 bilaterally. Neurologic examination: Patient is awake alert and oriented 3. Cranial nerves II through XII are grossly intact. - Labs CBC & Chem 7: 02/12/20 05:32 02/12/20 05:32 Labs: Abnormal Lab Results - Last 24 Hours (Table) 02/11/20 02/11/20 02/12/20 Range/Units 16:55 20:02 05:32 RBC 3.74 L (3.80-5.40) m/uL Hgb 11.2 L (11.4-16.0) gm/dL RDW 16.3 H (11.5-15.5) % Plt Count 104 L (150-450) k/uL Chloride (98-107) mmol/L Carbon Dioxide (22-30) mmol/L BUN (7-17) mg/dL Creatinine (0.52-1.04) mg/dL Glucose (74-99) mg/dL POC Glucose (mg/dL) 146 H 150 H (75-99) mg/dL Calcium (8.4-10.2) mg/dL Alkaline Phosphatase (38-126) U/L Total Protein (6.3-8.2) g/dL Albumin (3.5-5.0) g/dL 02/12/20 02/12/20 Range/Units 05:32 06:34 RBC (3.80-5.40) m/uL Hgb (11.4-16.0) gm/dL RDW (11.5-15.5) % Plt Count (150-450) k/uL Chloride 117 H (98-107) mmol/L Carbon Dioxide 17 L (22-30) mmol/L BUN 28 H (7-17) mg/dL Creatinine 1.90 H (0.52-1.04) mg/dL Glucose 63 L (74-99) mg/dL POC Glucose (mg/dL) 73 L (75-99) mg/dL Calcium 8.3 L (8.4-10.2) mg/dL Alkaline Phosphatase 184 H (38-126) U/L Total Protein 5.4 L (6.3-8.2) g/dL Albumin 2.2 L (3.5-5.0) g/dL Microbiology - Last 24 Hours (Table) 02/07/20 09:45 Blood Culture - Preliminary Blood No Growth after 120 hours 02/07/20 09:26 Blood Culture - Preliminary Blood No Growth after 120 hours 02/10/20 00:24 Gram Stain - Final Sputum Sputum Culture - Final Eli albicans Eli sp,not albicans/galbr 02/08/20 02:40 Urine Culture - Final Urine,Voided Klebsiella pneumoniae Enterococcus faecalis Assessment and Plan Plan: 1. Acute pancreatitis likely related to cholelithiasis status post laparoscopic cholecystectomy. Discontinue IV fluid, continue Protonix 40 mg IV push every 24 hours. 2. Acute hypoxic respiratory failure, unexpected postop complication. Successfully extubated, managed by wardrobe specialty worker. 3. Anion and non-anion gap metabolic acidosis. Stable. 4. Klebsiella and enterococcus Urinary tract infection with sepsis. Continue ciprofloxacin renal dosed. 5. Acute kidney injury and top of chronic kidney disease stage III. Continue to monitor. 6. Accelerated hypertension with history of hypertension and hypertensive cardio vascular disease. Patient has been hypotensive, off vasopressors. Coreg and losartan placed on hold. 7. Diabetes mellitus type 2 uncontrolled with hypoglycemia. Continue on sliding scale insulin. Hold off glipizide for now. 8. Hyperlipidemia. 9. Chronic osteomyelitis of the left knee. Hold off doxycycline for now. 10. Recurrent Depression. Continue Zoloft 100 mg orally once every day. 11. Chronic aortic dissection with abdominal aortic aneurysm. Stable. 12. Chronic tobacco use and dependence with COPD. 13. Poor appetite with cachexia and severe protein calorie malnutrition continue with Glucerna 3 times daily. 14. Hypothyroidism. Continue synthroid 25 mcg orally daily. 15. DVT prophylaxis. Continue patient on heparin 5000 units subcutaneously every 12 hours for 16. GI prophylaxis. Continue patient on Protonix 40 mg oral every 24 hours. 17. Visual hallucinations. Possibly due to combination of medication effect, hospitalization, illness and possible early dementia. Patient is no code. Discharge plan: Home with [facility]. Impression and plan of care have been directed as dictated by the signing physician. Annie Ba nurse practitioner acting as scribe for signing physician.
[2020-02-12 12:36] LABS: Glucose,Whole Blood 97 mg/dL (75-99)
[2020-02-12] MEDS: HYDROcodone/APAP 10-325MG 1 EACH TAB PO PRN (13:43)
--- NOTE | 2020-02-12 15:07 | CDI ---
Documentation Clarification Form Date: 02/12/2020 02:39:53 PM From: Divina Diego RN CCDS Admit Date: 02/06/2020 05:09:00 PM Patient Name: Glenny Rodriguez Visit Number: [id number] Discharge Date: ATTENTION: The Clinical Documentation Specialists (CDI) and [facility] Coding Staff appreciate your assistance in clarifying documentation. Please respond to the clarification below the line at the bottom and electronically sign. The CDI & [facility] Coding staff will review the response and follow-up if needed. Please note: Queries are made part of the Legal Health Record. If you have any questions, please contact the author of this message via ITS. Dr. Nas Villalta Acute hypoxic respiratory failure, unexpected postop complication is documented in Internal Medicine progress notes 02/09, 02/10 and 02/11 Patients Admitting Diagnosis: Sepsis, UTI, Cholecystitis Post-Operative Diagnosis: Cholecystitis Procedure performed: Endoscopic cholecystectomy History/Risk Factors: 74-year-old female presents to the ED for nausea and vomiting. Clinical Indicators: Medical History: Chronic tobacco abuse and dependence with COPD, HTN, DM and HLD 02/09 Surgical progress Note Patient initially was extubated after surgery but did require to reintubated due to respiratory distress. 02/10 ICU Sales Development Director progress note Postoperative day #2 status post laparoscopic cholecystectomy with subsequent respiratory failure requiring re- intubation on February 08 and successful extubation on Feb 10, 2020. Acute hypoxemia respiratory failure, resolved. Treatment: Re-Intubation with mechanical ventilator In order to accurately reflect this patients severity of illness, please clarify if the post-operative respiratory failure is: -is a complication of surgical procedure -is an expected outcome of the surgical procedure -is related to co-morbid condition(s) of -Other please specify -Unable to determine (Last Revision: May 2019) Is related to comorbid conditions of tobacco use and COPD MTDD
[2020-02-12 16:46] LABS: Glucose,Whole Blood 115 mg/dL (75-99)
[2020-02-12 17:06] LABS: Glucose,Whole Blood 113 mg/dL (75-99)
[2020-02-12 19:14] VITALS: RESP 16
[2020-02-12] MEDS: ASPIRIN 81 MG PO SCH (20:13)
[2020-02-12] MEDS: traZODone HCL 100 MG TAB PO SCH (20:13)
[2020-02-12 20:20] LABS: Glucose,Whole Blood 81 mg/dL (75-99)
[2020-02-12] MEDS: LACTATED RINGERS 1,000 ML IV SCH (21:46)
[2020-02-13] MEDS: HYDROcodone/APAP 10-325MG 1 EACH TAB PO PRN (01:28)
[2020-02-13] MEDS: CIPROFLOXACIN HCL 500 MG TAB PO SCH (02:56)
[2020-02-13 04:33] VITALS: BP 123/68; TEMP 97.8
[2020-02-13] MEDS: LEVOTHYROXINE 25 MCG TAB PO SCH (06:20)
[2020-02-13 07:17] LABS: Glucose,Whole Blood 78 mg/dL (75-99)
[2020-02-13] MEDS: INSULIN ASPART (NovoLOG) 100 UNIT/ML VIAL SQ SCH (07:28)
[2020-02-13] MEDS ORDERED: PANTOPRAZOLE 40 MG TABLET PO SCH (07:30)
[2020-02-13] MEDS: NICOTINE 14MG/24HR PATCH TRANSDERM SCH (07:39)
[2020-02-13] MEDS: SERTRALINE 100 MG TAB PO SCH (07:39)
[2020-02-13] MEDS: HEPARIN SODIUM,PORCINE 5,000 UNIT/ML 1 ML VIAL SQ SCH (07:39)
[2020-02-13] MEDS: IPRATROPIUM-ALBUTEROL 3 ML NEB INHALATION SCH (07:56)
[2020-02-13 08:15] VITALS: PULSE 69
--- NOTE | 2020-02-13 08:23 | P.DS ---
Providers Date of admission: 02/06/20 17:09 Expected date of discharge: 02/13/20 Attending physician: Pastora Frazier Consults: 02/09/20 12:15 Consult Physician Urgent Consulting Provider: Fidel Moore Consult Reason/Comments: pulmonary management Do you want consulting provider notified?: Yes 02/10/20 11:03 Consult Physician Routine Consulting Provider: Nas Villalta Consult Reason/Comments: cholecystectomy Do you want consulting provider notified?: Already Contacted Primary care physician: Pastora Frazier Hospital Course: This is a 74-year-old female patient of [facility] with past history for COPD, diabetes mellitus type 2 insulin requiring, hypertension, hyperlipidemia, generalized osteoarthritis, generalized anxiety disorder, AAA. Patient has history of osteoarthritis and under the care of Dr. Lara status post left total knee arthroplasty last July. Subsequently, she was readmitted and underwent patellar retinaculum and quadriceps tendon repair. She was readmitted in September for surgical wound ulceration eschar with flap necrosis and underwent I&D and was last admiited to our hospital on 07/2019 and was seen by ID and Vascular and it was recommended for her to have left AKA but she declined and wanted to continue with conservative management with chroniv oral antibiotics and pain control and she has a great support at home with her daughter and her , patient presented to the emergency department at [facility] yesterday with increased abdominal pain associated with nausea and vomiting she underwent computed tomography scan of the abdomen and pelvis that showed inflammatory changes of the pancreas also she appeared to have a chronic dissection of her aorta with abdominal aortic aneurysm at 3.8 cm, this was followed by ultrasound of the abdomen that showed cholelithiasis without ductal dilatation and stable abdominal aortic aneurysm at 3.8 cm, patient was placed on clear liquid diet started on IV fluid resuscitation was admitted to the hospital for evaluation general surgery consultation as well as GI consultation. 02/07: Patient states that she is feeling a little better today, pain is decreased. She has not had a bowel movement today. Patient did have hallucinations during the night and a safety deposit supervisor was required. She is oriented 3 and can answer questions appropriately but the time of this evaluation, patient thinks there is a dog in the room. Patient has been seen by Dr. Villalta and plan is for laparoscopic cholecystectomy tomorrow. We will contact the patient's and discuss plan of care. Repeat lipase 247. Blood sugar this morning was 56 and patient was started on a D5 0.9 normal saline fluid. 02/08: Patient has been afebrile, heart rate 53, blood pressure 152/65, pulse ox 99% on room air. Repeat CBC reveals WBC 6.9, hemoglobin 11.8, platelet count 115. Sodium 138, potassium 4.0, chloride 113, CO2 17.3, BUN 48 and creatinine 2.1. Blood sugars have been running in the 60s. Alkaline phosphatase 147, total bilirubin 0.4, ALT 28 and AST 43. Yesterday, discussed surgical option with the patient's family. They would like to move forward with this. She is scheduled for laparoscopic cholecystectomy today with Dr. Villalta. 02/09: Patient underwent surgery yesterday with Dr. Villalta but had difficulty in the PACU was unresponsive and hypoxic along with bradycardia and hypotension. She was placed on simple mask with pulse ox of 98% with worsening oxygen saturations down to 83% on 100% nonrebreather. Patient was placed on BiPAP followed by reintubation and transferred to the intensive care unit. Patient remains intubated and on mechanical ventilation with tidal volume 350, FiO2 40, PEEP of 5. Patient has been started on a dopamine drip, off dopamine at the ti me of this evaluation. Blood pressure currently 99/59, heart rate 61, temperature has been low at 96.3. Patient is awake and alert. She is opening her eyes and able to communicate by nodding. Anticipate that she will be weaned off ventilator this afternoon. Repeat chest x-ray reveals persistent small left pleural effusion. 02/10: Patient remains in intensive care unit and was successfully extubated yesterday. She has been afebrile, heart rate 70, blood pressure 124/82, pulse ox 97% on 2 L nasal cannula. Repeat blood work reveals WBC 5.8, hemoglobin 10.6, platelet count 114. Sodium 137, potassium 3.9, chloride 114, CO2 20, BUN 33 and creatinine 2.03. Blood sugars have been running between 128 and 154. Urine culture has been finalized with Klebsiella pneumoniae and Enterococcus f aecalis. Sputum culture in progress and blood cultures are showing no growth from the . Patient has been cleared to transfer to [facility] without telemetry by Dr. Moore. Patient is to start a regular diet today for lunch. 02/11: Patient remains in the intensive care unit and waiting for [facility] bed. She has been hemodynamically stable, blood pressure 168/81, heart rate 74, afebrile, pulse ox 96% on room air. Repeat blood work reveals WBC 6, hemoglobin 11.2, platelet count 104. Sodium 138, potassium 4.2, chloride 117, CO2 17, BUN 28 creatinine 1.9. Blood sugars running between 63 and 150. Total bilirubin 0.6, AST 36, ALT 34, alkaline Phosphatase 184. Dr. Kirk's changed IV Zosyn to ciprofloxacin and DuoNeb treatments ordered. Patient is tolerating a regular diet. Abdominal pain is controlled. She denies having any nausea or vomiting. Coyne catheter will be removed today. IV fluids discontinued and monitor blood sugars and preparation for discharge. Patient will be restarted on oral Crane. discharge diagnoses: 1. Acute pancreatitis likely related to cholelithiasis status post laparoscopic cholecystectomy. 2. Acute hypoxic respiratory failure, unexpected postop complication. 3. Anion and non-anion gap metabolic acidosis. 4. Klebsiella and enterococcus Urinary tract infection with sepsis. 5. Acute kidney injury and top of chronic kidney disease stage III. 6. Accelerated hypertension with history of hypertension and hypertensive cardiovascular disease. 7. Diabetes mellitus type 2 uncontrolled with hypoglycemia. 8. Hyperlipidemia. 9. Chronic osteomyelitis of the left knee. 10. Recurrent Depression. 11. Chronic aortic dissection with abdominal aortic aneurysm. 12. Chronic tobacco use and dependence with COPD. 13. Poor appetite with cachexia and severe protein calorie malnutrition. 14. Hypothyroidism. Patient Condition at Discharge: Fair Plan - Discharge Summary Discharge Rx Participant: Yes New Discharge Prescriptions: New Ciprofloxacin HCl [Cipro] 500 mg PO Q18H #10 tab Nicotine 14Mg/24Hr Patch [Habitrol] 1 patch TRANSDERM DAILY #30 patch Pantoprazole [Protonix] 40 mg PO AC-BRKFST #30 tablet. Continue Aspirin EC [Ecotrin Low Dose] 81 mg PO HS traZODone HCL 150 mg PO HS Sertraline [Zoloft] 100 mg PO DAILY Levothyroxine Sodium 25 mcg PO DAILY Vit C/E/Zn/Coppr/Lutein/Zeaxan [Preservision Areds 2 Softgel] 1 cap PO BID Doxycycline Hyclate [Vibramycin] 100 mg PO DAILY HYDROcodone/APAP 10-325MG [Crane 10-325] 1 tab PO BID PRN PRN Reason: Pain Mirtazapine [Remeron] 15 mg PO HS Discontinued glipiZIDE XL [Glucotrol XL] 5 mg PO DAILY Discharge Medication List Aspirin EC [Ecotrin Low Dose] 81 mg PO HS 10/21/18 [History] Levothyroxine Sodium 25 mcg PO DAILY 08/13/19 [History] Sertraline [Zoloft] 100 mg PO DAILY 08/13/19 [History] Vit C/E/Zn/Coppr/Lutein/Zeaxan [Preservision Areds 2 Softgel] 1 cap PO BID 08/13/19 [History] traZODone HCL 150 mg PO HS 08/13/19 [History] Doxycycline Hyclate [Vibramycin] 100 mg PO DAILY 02/06/20 [History] HYDROcodone/APAP 10-325MG [Crane 10-325] 1 tab PO BID PRN 02/06/20 [History] Mirtazapine [Remeron] 15 mg PO HS 02/06/20 [History] Ciprofloxacin HCl [Cipro] 500 mg PO Q18H #10 tab 02/13/20 [Rx] Nicotine 14Mg/24Hr Patch [Habitrol] 1 patch TRANSDERM DAILY #30 patch 02/13/20 [Rx] Pantoprazole [Protonix] 40 mg PO AC-BRKFST #30 tablet. 02/13/20 [Rx] Follow up Appointment(s)/Referral(s): Pastora Frazier MD [Primary Care Provider] - 1-2 days [facility], [NON-STAFF] -
--- NOTE | 2020-02-16 08:27 | CDI ---
Documentation Clarification Form Date: 02/16/20 From: Tiffany Grace CCS Phone: If you have a question about this query, please contact Anna Sloan, Agricultural Extension Specialist at [phone] between 8am and 5pm. Admit Date: 02/06/20 Discharge Date:02/13/20 Patient Name: Glenny Rodriguez Visit Number: [id number] ATTENTION: The Clinical Documentation Specialists (CDI) and [facility] Coding Staff appreciate your assistance in clarifying documentation. Please respond to the clarification below the line at the bottom and electronically sign. The CDI & [facility] Coding staff will review the response and follow-up if needed. Please note: Queries are made part of the Legal Health Record. If you have any questions, please contact the author of this message via ITS. Dear Dr. Villalta, Hypotension is documented in the 02/08 Consult, PNs, DS. Consult 02/08 documents: We decided to give the patient 2 amps of sodium bicarbonate, IV fluids for hypotension, drop the FiO2 down to 60% and increase the rate to 22 and the tidal volume to be dropped down from 450 to 350. PNs document: She is on D5 at 0.45 at 100 mL an hour, propofol at 15 mcg/kg/per minute and dopamine at 3 mcg/kg/per minute, primarily for bradycardia and hypotension. 02/09: Patient underwent surgery yesterday with Dr. Villalta but had difficulty in the PACU was unresponsive and hypoxic along with bradycardia and hypotension. History/Risk Factors: DM, HTN, CKD, UTI, Sepsis Clinical Indicators: Confusion, Acute respiratory failure, Hypotension, Bradycardia Patients B/P: 45/23 Treatment: Dopamine drip 800 mg IV, Propofol, Fluid Bolus In your professional opinion, can you please specify the etiology of the hypotension if known? Orthostatic Hypotension Postural Hypotension Idiopathic Hypotension Drug Induced Hypotension ( Please specify drug) Chronic Hypotension Postoperative Hypotension-Unexpected Complication Postoperative Hypotension-Expected Outcome Other Condition, please specify Unable to determine The patient had respiratory failure and hypotension due to her comorbidities. MTDD
--- NOTE | 2020-02-16 08:40 | CDI ---
Documentation Clarification Form Date: 02/16/20 From: Tiffany Grace CCS Phone: If you have a question about this query, please contact Anna Sloan, Transformation Specialist at [phone] between 8am and 5pm. Admit Date: 02/06/20 Discharge Date:02/13/20 Patient Name: Glenny Rodriguez Visit Number: [id number] ATTENTION: The Clinical Documentation Specialists (CDI) and [facility] Coding Staff appreciate your assistance in clarifying documentation. Please respond to the clarification below the line at the bottom and electronically sign. The CDI & [facility] Coding staff will review the response and follow-up if needed. Please note: Queries are made part of the Legal Health Record. If you have any questions, please contact the author of this message via ITS. Dear Dr. Frazier, Confusion, hallucinations, unresponsive was documented in the PNs, DS. PNs, DS document: Patient did have hallucinations during the night and a system safety engineer was required. PNs document: Visual hallucinations.Possibly due to combination of medication effect, hospitalization, illness and possible early dementia. PN 02/07 documents: WBC 8.4 patient did have some confusion and did require bedside sitter PNs, DS document: Patient underwent surgery yesterday with Dr. Villalta but had difficulty in the PACU was unresponsive and hypoxic along with bradycardia and hypotension History/Risk Factors: Sepsis, UTI, Pancreatitis, EDILIA, Acute Resp Failure, Acidosis, DM, HTN, CKD Clinical Indicators: Confusion, Hallucinations, Unresponsive Treatment: Narcan 0.2 mg IV, Diprivan 1,000 mg IV In your professional opinion, please clarify the etiology of the confusion, if known. Delirium (specify cause): Dementia Metabolic Encephalopathy Other condition (please specify) Unable to determine Metabolic encephalopathy due to UTI and pancreatitis. MTDD
== END 2020-02-13 11:09 | disposition home health service (06) | DRG 853 ==
LOC: SUPCPDRO 11:38 → EC 11:38 → 4SSUR 17:09 → 2SICU 02-09 11:55 → 6NMEDSUR 02-12 21:16
PROVIDERS: ADMIT Internal Medicine; ATTEND Internal Medicine
PROC: 0BH17EZ Insertion of Endotracheal Airway into Trachea, Via Natural or Artificial Opening (ICD-10-PCS; 2020-02-09)
PROC: 5A1945Z Respiratory Ventilation, 24-96 Consecutive Hours (ICD-10-PCS; 2020-02-09)
PROC: 0FT44ZZ Resection of Gallbladder, Percutaneous Endoscopic Approach (ICD-10-PCS; principal; 2020-02-09 10:15)
DX: A41.81 Sepsis due to Enterococcus (principal); K85.10 Biliary acute pancreatitis without necrosis or infection; I71.02 Dissection of abdominal aorta; J96.01 Acute respiratory failure with hypoxia; E43 Unspecified severe protein-calorie malnutrition; G93.41 Metabolic encephalopathy; K80.10 Calculus of gallbladder with chronic cholecystitis without obstruction; I47.1 Supraventricular tachycardia; N39.0 Urinary tract infection, site not specified; N17.9 Acute kidney failure, unspecified; M86.68 Other chronic osteomyelitis, other site; E87.4 Mixed disorder of acid-base balance; F33.9 Major depressive disorder, recurrent, unspecified; R64 Cachexia; R44.3 Hallucinations, unspecified; J44.9 Chronic obstructive pulmonary disease, unspecified; E11.649 Type 2 diabetes mellitus with hypoglycemia without coma; N18.30 Chronic kidney disease, stage 3 unspecified; I13.10 Hypertensive heart and chronic kidney disease without heart failure, with stage 1 through stage 4 chronic kidney disease, or unspecified chronic kidney disease; E11.22 Type 2 diabetes mellitus with diabetic chronic kidney disease; E11.69 Type 2 diabetes mellitus with other specified complication; I95.9 Hypotension, unspecified; I71.4 Abdominal aortic aneurysm, without rupture; Z79.4 Long term (current) use of insulin; E78.5 Hyperlipidemia, unspecified; F41.1 Generalized anxiety disorder; F17.210 Nicotine dependence, cigarettes, uncomplicated; R00.1 Bradycardia, unspecified; M15.9 Polyosteoarthritis, unspecified; E03.9 Hypothyroidism, unspecified; K57.30 Diverticulosis of large intestine without perforation or abscess without bleeding; Z71.3 Dietary counseling and surveillance; Z68.20 Body mass index [BMI] 20.0-20.9, adult; Z79.899 Other long term (current) drug therapy; Z79.890 Hormone replacement therapy; Z79.82 Long term (current) use of aspirin; Z87.01 Personal history of pneumonia (recurrent); Z87.440 Personal history of urinary (tract) infections; Z90.49 Acquired absence of other specified parts of digestive tract; Z90.710 Acquired absence of both cervix and uterus; Z96.652 Presence of left artificial knee joint; Z98.890 Other specified postprocedural states; Z87.81 Personal history of (healed) traumatic fracture; Z88.1 Allergy status to other antibiotic agents; Z80.1 Family history of malignant neoplasm of trachea, bronchus and lung; Z80.6 Family history of leukemia
CPT/HCPCS: 36415; 36600; 71045; 74176; 76705; 80048; 80053; 81001; 82805; 83036; 83605; 83690; 83735; 84484; 85025; 85027; 87040; 87070; 87077; 87086; 87186; 87205; 88304; 93005; 94002; 94003; 94640; 94760; 96361; 96374; 96375; 99285

== ENCOUNTER 2020-11-29 18:02 | Observation (INO) | payer MEDICARE ==
[2020-11-29] MEDS: SODIUM CHLORIDE 0.9% 1,000 ML IV SCH (19:46)
[2020-11-29 20:21] LABS: Albumin 3.8 g/dL (3.5-5.0); Calcium 9.8 mg/dL (8.4-10.2); Magnesium 2.3 mg/dL (1.6-2.3); Total Bilirubin 1.5 mg/dL (0.2-1.3); Total Protein 8.4 g/dL (6.3-8.2)
[2020-11-29 20:22] LABS: Anisocytosis Slight; Basophils % (A) 0 %; Eosinophils % (A) 0 %; HCT 47.7 % (34.0-46.0); HGB 15.4 gm/dL (11.4-16.0); Hypochromasia Slight; Lymphocytes # (A) 1.9 k/uL (1.0-4.8); Lymphocytes % (A) 21 %; MCHC 32.4 g/dL (31.0-37.0); MCV 92.9 fL (80.0-100.0); Mean Platelet Volume 12.8; Monocytes # (A) 0.4 k/uL (0-1.0); Monocytes % (A) 4 %; Neutrophils # (A) 6.4 k/uL (1.3-7.7); Neutrophils % (A) 73 %; RBC 5.13 m/uL (3.80-5.40); RDW 16.3 % (11.5-15.5); WBC 8.8 k/uL (3.8-10.6)
[2020-11-29 20:27] LABS: Potassium 5.1 mmol/L (3.5-5.1)
[2020-11-29 20:41] LABS: Platelet Count 97 k/uL (150-450)
--- NOTE | 2020-11-29 20:46 | XR ---
EXAMINATION TYPE: XR chest 2V DATE OF EXAM: 11/29/2020 COMPARISON: 02/12/2020. HISTORY: Weakness. TECHNIQUE: Frontal and lateral views of the chest are obtained. FINDINGS: The lungs are hyperaerated. There is no focal air space opacity, pleural effusion, or pneu mothorax seen. The cardiac silhouette size is within normal limits. The osseous structures are int act. IMPRESSION: No acute cardiopulmonary process.
--- NOTE | 2020-11-29 21:53 | ED ---
Weakness HPI - General Chief complaint: Weakness Stated complaint: Dehydration Source: patient, EMS Mode of arrival: EMS Limitations: no limitations - History of Present Illness Initial comments: 75-year-old female presents to the emergency department stating that she "does not feel good". Patient is a poor historian and can't provide much history. Per EMS the patient was at Dr. parada's office today. Family states that she wasn't eating or drinking at home and has become significantly dehydrated. Patient has been progressively getting worse and therefore they're considering putting her in hospice. Patient has a chronic wound to the left knee. She is denying any pain at this time. No fevers or chills. Remainder of the HPI is limited - Related Data Home Medications Medication Instructions Recorded Confirmed Aspirin EC [Ecotrin Low Dose] 81 mg PO HS 10/21/18 11/29/20 Sertraline [Zoloft] 100 mg PO DAILY 08/13/19 11/29/20 Doxycycline Hyclate [Vibramycin] 100 mg PO BID 02/06/20 11/29/20 HYDROcodone/APAP 10-325MG [Yermo 1 tab PO BID PRN 02/06/20 11/29/20 10-325] Mirtazapine [Remeron] 15 mg PO HS 02/06/20 11/29/20 ALPRAZolam [Xanax] 0.25 mg PO HS PRN 11/29/20 11/29/20 Atorvastatin [Lipitor] 80 mg PO HS 11/29/20 11/29/20 Previous Rx's Medication Instructions Recorded Pantoprazole [Protonix] 40 mg PO AC-BRKFST #30 tablet. 02/13/20 Allergies Allergy/AdvReac Type Severity Reaction Status Date / Time vancomycin Allergy Itching Verified 11/29/20 20:21 Review of Systems ROS Statement: Those systems with pertinent positive or pertinent negative responses have been documented in the HPI. ROS Other: All systems not noted in ROS Statement are negative. Past Medical History Past Medical History: COPD, Diabetes Mellitus, Hyperlipidemia, Hypertension, Pneumonia Additional Past Medical History / Comment(s): Septic arthritis, COPD, diabetes mellitus, hypertension, hyperlipidemia, chronic anxiety, history of smoking, previous history of UTI History of Any Multi-Drug Resistant Organisms: None Reported Past Surgical History: Bowel Resection, Hysterectomy, Joint Replacement, Orthopedic Surgery Additional Past Surgical History / Comment(s): colon resection with ileostomy/later reversal, surgery for fx left femur, left knee replacement 07/2018, Past Anesthesia/Blood Transfusion Reactions: No Reported Reaction Past Psychological History: No Psychological Hx Reported Smoking Status: Current every day smoker Past Alcohol Use History: None Reported Past Drug Use History: None Reported - Past Family History Mother Additional Family Medical History / Comment(s): heart problems passed around 82 Father Family Medical History: Cancer Additional Family Medical History / Comment(s): lung ca passed at 84 Sister(s) Family Medical History: Cancer Additional Family Medical History / Comment(s): leukemia Daughter(s) Additional Family Medical History / Comment(s): Two adult daughters with no major medical problems General Exam Limitations: no limitations Course Vital Signs 11/29/20 11/29/20 11/29/20 18:09 19:40 20:45 Temperature 98.8 F Pulse Rate 79 72 77 Respiratory 18 18 16 Rate Blood Pressure 117/77 115/76 107/81 O2 Sat by Pulse 97 98 97 Oximetry 11/29/20 22:05 Temperature Pulse Rate 75 Respiratory 18 Rate Blood Pressure 126/77 O2 Sat by Pulse 98 Oximetry EKG Findings - EKG Comments: EKG Findings:: EKG demonstrates sinus rhythm with first-degree AV block. Frequent PVCs. Rate of 77. OH interval 330. QRS 96. QTC 468. No acute ST segment elevations or depressions. Left anterior fascicular block Medical Decision Making - Medical Decision Making Upon arrival the patient was placed into room 28. Thorough history and physical exam was performed. Patient is accompanied with a note from dr. Frazier. Laboratory studies are conducted. Chest x-ray was performed. Laboratory studies are reviewed. Creatinine is 2.98. Patient's normal baseline is around 2. She is started on 75 mL of saline per hour. Called and spoke with Dr. Yolis hill. She will be admitted. Patient is placed on Zosyn because of her chronic wound. Patient is awaiting a bed on the floor - Lab Data Result diagrams: 11/29/20 19:41 11/29/20 19:41 Lab Results 11/29/20 11/29/20 11/29/20 Range/Units 19:41 19:41 19:41 WBC 8.8 (3.8-10.6) k/uL RBC 5.13 (3.80-5.40) m/uL Hgb 15.4 (11.4-16.0) gm/dL Hct 47.7 H (34.0-46.0) % MCV 92.9 (80.0-100.0) fL MCH 30.0 (25.0-35.0) pg MCHC 32.4 (31.0-37.0) g/dL RDW 16.3 H (11.5-15.5) % Plt Count 97 L (150-450) k/uL MPV 12.8 Neutrophils % 73 % Lymphocytes % 21 % Monocytes % 4 % Eosinophils % 0 % Basophils % 0 % Neutrophils # 6.4 (1.3-7.7) k/uL Lymphocytes # 1.9 (1.0-4.8) k/uL Monocytes # 0.4 (0-1.0) k/uL Eosinophils # 0.0 (0-0.7) k/uL Basophils # 0.0 (0-0.2) k/uL Hypochromasia Slight Anisocytosis Slight Sodium 137 (137-145) mmol/L Potassium 5.1 (3.5-5.1) mmol/L Chloride 112 H (98-107) mmol/L Carbon Dioxide 14 L (22-30) mmol/L Anion Gap 11 mmol/L BUN 96 H (7-17) mg/dL Creatinine 2.98 H (0.52-1.04) mg/dL Est GFR (CKD-EPI)AfAm 17 (>60 ml/min/1.73 sqM) Est GFR (CKD-EPI)NonAf 15 (>60 ml/min/1.73 sqM) Glucose 140 H (74-99) mg/dL Plasma Lactic Acid Harshal 1.4 (0.7-2.0) mmol/L Calcium 9.8 (8.4-10.2) mg/dL Magnesium 2.3 (1.6-2.3) mg/dL Total Bilirubin 1.5 H (0.2-1.3) mg/dL AST 117 H (14-36) U/L ALT 85 H (4-34) U/L Alkaline Phosphatase 358 H (38-126) U/L Creatine Kinase 121 (30-135) U/L Troponin I (0.000-0.034) ng/mL Total Protein 8.4 H (6.3-8.2) g/dL Albumin 3.8 (3.5-5.0) g/dL 11/29/20 Range/Units 19:41 WBC (3.8-10.6) k/uL RBC (3.80-5.40) m/uL Hgb (11.4-16.0) gm/dL Hct (34.0-46.0) % MCV (80.0-100.0) fL MCH (25.0-35.0) pg MCHC (31.0-37.0) g/dL RDW (11.5-15.5) % Plt Count (150-450) k/uL MPV Neutrophils % % Lymphocytes % % Monocytes % % Eosinophils % % Basophils % % Neutrophils # (1.3-7.7) k/uL Lymphocytes # (1.0-4.8) k/uL Monocytes # (0-1.0) k/uL Eosinophils # (0-0.7) k/uL Basophils # (0-0.2) k/uL Hypochromasia Anisocytosis Sodium (137-145) mmol/L Potassium (3.5-5.1) mmol/L Chloride (98-107) mmol/L Carbon Dioxide (22-30) mmol/L Anion Gap mmol/L BUN (7-17) mg/dL Creatinine (0.52-1.04) mg/dL Est GFR (CKD-EPI)AfAm (>60 ml/min/1.73 sqM) Est GFR (CKD-EPI)NonAf (>60 ml/min/1.73 sqM) Glucose (74-99) mg/dL Plasma Lactic Acid Harshal (0.7-2.0) mmol/L Calcium (8.4-10.2) mg/dL Magnesium (1.6-2.3) mg/dL Total Bilirubin (0.2-1.3) mg/dL AST (14-36) U/L ALT (4-34) U/L Alkaline Phosphatase (38-126) U/L Creatine Kinase (30-135) U/L Troponin I 0.029 (0.000-0.034) ng/mL Total Protein (6.3-8.2) g/dL Albumin (3.5-5.0) g/dL Disposition Clinical Impression: Dehydration, Acute kidney failure Disposition: ADMITTED IP TO THIS HOSP Condition: Stable Is patient prescribed a controlled substance at d/c from ED?: No Decision to Admit Reason: Admit from EC Decision Date: 11/29/20 Decision Time: 22:42
[2020-11-29] MEDS ORDERED: NALOXONE 0.4 MG/ML 1 ML VIAL IV PRN (22:42)
[2020-11-29] MEDS ORDERED: ALPRAZolam 0.25 MG TAB PO PRN (23:17)
[2020-11-29] MEDS ORDERED: HYDROcodone/APAP 10-325MG 1 EACH TAB PO PRN (23:17)
[2020-11-29] MEDS ORDERED: ATORVASTATIN 80 MG TAB PO SCH (23:30)
[2020-11-29] MEDS ORDERED: ASPIRIN 81 MG PO SCH (23:30)
[2020-11-29] MEDS ORDERED: MIRTAZAPINE 15 MG TAB PO SCH (23:30)
[2020-11-29] MEDS: PANTOPRAZOLE 40 MG TABLET PO SCH (23:45)
[2020-11-29 23:57] LABS: INR 1.4 (<1.2); Partial Thromboplastin Time 22.8 sec (22.0-30.0); Prothrombin Time 14.5 sec (9.0-12.0)
[2020-11-30 00:05] LABS: Appearance,Urine Cloudy (Clear); Bacteria,Urine Many /hpf; Bilirubin,Urine Negative (Negative); Blood,Urine Small (Negative); Color,Urine Yellow; Glucose,Urine (UA) Negative (Negative); Hyaline Casts,Urine 3 /lpf (0-2); Ketones,Urine Negative (Negative); Leukocyte Esterase,Urine Large (Negative); Mucus,Urine Many /hpf; Nitrite,Urine Positive (Negative); PH, Urine 5.5 (5.0-8.0); Protein,Urine 1+ (Negative); RBC,Urine 5 /hpf (0-5); Specific Gravity,Urine 1.018 (1.001-1.035); Squamous Epithelial Cell,Urine 2 /hpf (0-4); Urobilinogen,Urine <2.0 mg/dL (<2.0); WBC,Urine 117 /hpf (0-5)
[2020-11-30] MEDS: PIPERACILLIN-TAZOBACTAM 3.375 GM in SODIUM CHLORIDE 0.9% 100 ML IVPB SCH ×2 (00:09→08:27)
[2020-11-30 03:18] LABS: Calcium 9.6 mg/dL (8.4-10.2)
[2020-11-30 03:19] LABS: Potassium 4.1 mmol/L (3.5-5.1)
[2020-11-30 03:23] LABS: Basophils % (A) 0 %; Eosinophils % (A) 0 %; HCT 46.6 % (34.0-46.0); HGB 14.1 gm/dL (11.4-16.0); Hypochromasia Marked; Lymphocytes # (A) 2.4 k/uL (1.0-4.8); Lymphocytes % (A) 27 %; MCH 29.1 pg (25.0-35.0); MCHC 30.2 g/dL (31.0-37.0); MCV 96.1 fL (80.0-100.0); Mean Platelet Volume 9.9; Monocytes # (A) 0.4 k/uL (0-1.0); Monocytes % (A) 5 %; Neutrophils # (A) 5.9 k/uL (1.3-7.7); Neutrophils % (A) 66 %; RBC 4.85 m/uL (3.80-5.40)
[2020-11-30 03:29] LABS: Platelet Count 95 k/uL (150-450)
[2020-11-30] MEDS: SODIUM CHLORIDE 0.9% 1,000 ML IV SCH ×2 (08:27→14:05)
[2020-11-30] MEDS: PANTOPRAZOLE 40 MG TABLET PO SCH (08:27)
[2020-11-30] MEDS ORDERED: SERTRALINE 100 MG TAB PO SCH (09:00)
--- NOTE | 2020-11-30 09:02 | P.HPIM ---
History of Present Illness H&P Date: 11/30/20 HISTORY OF PRESENT ILLNESS This is a 75-year-old female patient of mine with past history for COPD, diabetes mellitus type 2 insulin requiring, hypertension, hyperlipidemia, generalized osteoarthritis, generalized anxiety disorder, AAA. Patient has history of osteoarthritis and under the care of Dr. Lara status post left total knee arthroplasty last July. Subsequently, she was readmitted and underwent patellar retinaculum and quadriceps tendon repair. She was readmitted in September 2019 for surgical wound ulceration eschar with flap necrosis and underwent I&D and was last admiited to our hospital on 07/2019 and was seen by ID and Vascular and it was recommended for her to have left AKA but she declined and wanted to continue with conservative management with chroniv oral antibiotics. Patient was then admitted in January for acute pancreatitis and de veloped acute hypoxic respiratory failure in the postop period, Klebsiella and enterococcus urinary tract infection with sepsis and acute kidney injury. Patient now presents to the emergency center due to increasing weakness, not eating and drinking and dehydration family is requesting hospice and patient is in agreement with this and made no code as patient is agreeable to this as well. She has been started on IV antibiotics for possible UTI and chronic left knee wound. REVIEW OF SYSTEMS Constitutional: No fever, no chills, no night sweats. No weight change. Repo rts weakness, Reports fatigue Reports lethargy. Reports daytime sleepiness. EENT: No headache. No blurred vision or double vision, no loss of vision. No loss of Hearing, no ringing in the ears, no dizziness. No nasal drainage or congestion. No epistaxis. No sore throat. Lungs: No shortness of breath, cough, no sputum production. No wheezing. Cardiovascular: No chest pain, no lower extremity edema. No palpitations. No paroxysmal nocturnal dyspnea. No orthopnea. No lightheadedness or dizziness. No syncopal episodes. Abdominal: No abdominal pain. No nausea, vomiting. No diarrhea. No constipation. No bloody or tarry stools. Reports loss of appetite. Genitourinary: No dysuria, increased frequency, urgency. No urinary retention. Musculoskeletal: No myalgias. Reports muscle weakness, Reports gait dysfunction, no frequent falls. No back pain. No neck pain. Integumentary: Chronic left knee wound/osteomyelitis, no lesions. No rash or pruritus. No unusual bruising. No change in hair or nails. Neurologic: No aphasia. No facial droop. No change in mentation. No head injury. No headache. No paralysis. No paresthesia. Psychiatric: No depression. No anxiety. No mood swings. Endocrine: No abnormal blood sugars. MEDICAL HISTORY Chronic kidney disease stage III Chronic osteomyelitis of the left knee Diabetes mellitus type 2 Hypertension Hyperlipidemia Hypothyroidism Recurrent depression Generalized anxiety disorder Chronic aortic dissection with abdominal aortic aneurysm SURGICAL HISTORY Bowel resection with ileostomy and reversal Repair of left femur fracture Left knee replacement Hysterectomy SOCIAL HISTORY Patient was a smoker of 2 PPD for 56 years, No illicit drug use or alcohol use. Patient has home oxygen that she uses at nighttime only. Patient is a smoker of about 5 per day. . Retired. No recent international travel. No animals in the home. Family in the past owned the [employer]. FAMILY HISTORY Mother at age 82 from heart problems. Father at age 84 from lung cancer. Patient has sister with leukemia. Patient has 2 adult daughters with no major medical problems. PHYSICAL EXAMINATION Gen: This is a frail cachectic appearing 75-year-old female. Patient is resting on the ER stretcher. No acute distress. HEENT: Head is atraumatic, normocephalic, pupils were equal round reactive to light and recommendation, extraocular muscle movement were intact, mucous membranes of the mouth are somewhat dry. Neck: Supple, no JVP, decreased carotid upstroke bilaterally. Chest: Decreased breath sounds at bases, few rhonchi, no wheezes, no chest wall tenderness, no intercostal retractions. Heart: First heart sound is depressed, second heart sounds normal, there is systolic ejection murmur 2/6 located in the left sternal border. Abdomen: Soft, moderate tenderness the epigastric area and no rebound or guarding positive bowel sounds. Extremities: No edema, no calf tenderness significant muscle wasting, left knee with a chronic wound with osteomyelitis. Dorsalis pedis +1 bilaterally. Neurologic examination: Patient is awake alert and oriented 3, cranial nerves III-12 appear grossly intact, muscle power were 4 out of 5 in upper extremities and 3 out of 5 in bilateral lower extremities. ASSESSMENT AND PLAN 1. Acute kidney injury secondary to dehydration with poor oral intake. Continue IV fluids 0.9 normal saline at 75 mL per hour. 2. Acute urinary tract infection, chronic kidney disease stage III. Continue Zosyn, urine culture in progress. 3. Metabolic acidosis secondary to acute kidney injury. Continue IV fluids. 4. Thrombocytopenia secondary to most likely bone marrow suppression. 5. Chronic osteomyelitis of the left knee. Continue Zosyn 3.375 g IV piggyback every 8 hours, [place] 10 one twice daily as needed for pain. 6. Generalized debility and weakness secondary to above. 7. Severe protein calorie malnutrition with BMI of 20. Continue regular diet, Remeron 15 mg at bedtime, Ensure supplement. 8. Diabetes mellitus type 2. Patient is no longer on medication. 9. Hypertension. Patient is off blood pressure medication. 10. Hyperlipidemia. Atorvastatin will be discontinued. 11. Recurrent depression and generalized anxiety disorder. Continue Zoloft 100 mg daily, Remeron 15 mg at bedtime. 12. Chronic aortic dissection with abdominal aortic aneurysm. Stable. 13. Chronic tobacco use and dependence with COPD. 14. Hypothyroidism. Patient is off Synthroid. Patient is no code. Patient will be admitted to the hospital for a minimum of 2 night stay. DISCHARGE PLAN Hospice. Impression and plan of care have been directed as dictated by the signing physician. Annie Ba nurse practitioner acting as scribe for signing physician. Past Medical History Past Medical History: COPD, Diabetes Mellitus, Hyperlipidemia, Hypertension, Pneumonia Additional Past Medical History / Comment(s): Septic arthritis, COPD, diabetes mellitus, hypertension, hyperlipidemia, chronic anxiety, history of smoking, previous history of UTI History of Any Multi-Drug Resistant Organisms: None Reported Past Surgical History: Bowel Resection, Hysterectomy, Joint Replacement, Ortho pedic Surgery Additional Past Surgical History / Comment(s): colon resection with ileostomy/later reversal, surgery for fx left femur, left knee replacement 07/2018, Past Anesthesia/Blood Transfusion Reactions: No Reported Reaction Past Psychological History: No Psychological Hx Reported Smoking Status: Current every day smoker Past Alcohol Use History: None Reported Past Drug Use History: None Reported - Past Family History Mother Additional Family Medical History / Comment(s): heart problems passed around 82 Father Family Medical History: Cancer Additional Family Medical History / Comment(s): lung ca passed at 84 Sister(s) Family Medical History: Cancer Additional Family Medical History / Comment(s): leukemia Daughter(s) Additional Family Medical History / Comment(s): Two adult daughters with no major medical problems Medications and Allergies Home Medications Medication Instructions Recorded Confirmed Type Aspirin EC [Ecotrin Low Dose] 81 mg PO HS 10/21/18 11/29/20 History Sertraline [Zoloft] 100 mg PO DAILY 08/13/19 11/29/20 History Doxycycline Hyclate [Vibramycin] 100 mg PO BID 02/06/20 11/29/20 History HYDROcodone/APAP 10-325MG [[place] 1 tab PO BID PRN 02/06/20 11/29/20 History 10-325] Mirtazapine [Remeron] 15 mg PO HS 02/06/20 11/29/20 History Pantoprazole [Protonix] 40 mg PO AC-BRKFST #30 tablet.dr 02/13/20 11/29/20 Rx ALPRAZolam [Xanax] 0.25 mg PO HS PRN 11/29/20 11/29/20 History Atorvastatin [Lipitor] 80 mg PO HS 11/29/20 11/29/20 History Allergies Allergy/AdvReac Type Severity Reaction Status Date / Time vancomycin Allergy Itching Verified 11/29/20 20:21 Physical Exam Vitals: Vital Signs Temp Pulse Pulse Resp BP BP Pulse Ox 11/30/20 07:23 83 16 90/57 96 11/30/20 04:00 97.6 F 70 16 107/64 96 11/30/20 00:10 96.9 F L 72 16 146/76 97 11/29/20 22:05 75 18 126/77 98 11/29/20 20:45 77 16 107/81 97 11/29/20 19:40 72 18 115/76 98 11/29/20 18:09 98.8 F 79 18 117/77 97 Intake and Output 11/29/20 11/30/20 11/30/20 22:59 06:59 14:59 Other: Weight 56.699 kg Results CBC & Chem 7: 11/30/20 02:53 11/30/20 02:53 Labs: Abnormal Lab Results - Last 24 Hours (Table) 11/29/20 11/29/20 11/29/20 Range/Units 19:41 19:41 19:41 Hct 47.7 H (34.0-46.0) % MCHC (31.0-37.0) g/dL RDW 16.3 H (11.5-15.5) % Plt Count 97 L (150-450) k/uL PT (9.0-12.0) sec INR (<1.2) Chloride 112 H (98-107) mmol/L Carbon Dioxide 14 L (22-30) mmol/L BUN 96 H (7-17) mg/dL Creatinine 2.98 H (0.52-1.04) mg/dL Glucose 140 H (74-99) mg/dL Total Bilirubin 1.5 H (0.2-1.3) mg/dL AST 117 H (14-36) U/L ALT 85 H (4-34) U/L Alkaline Phosphatase 358 H (38-126) U/L Total Protein 8.4 H (6.3-8.2) g/dL Urine Appearance Cloudy H (Clear) Urine Protein 1+ H (Negative) Urine Blood Small H (Negative) Urine Nitrite Positive H (Negative) Ur Leukocyte Esterase Large H (Negative) Urine WBC 117 H (0-5) /hpf Urine Bacteria Many H (None) /hpf Hyaline Casts 3 H (0-2) /lpf Urine Mucus Many H (None) /hpf 11/29/20 11/30/20 11/30/20 Range/Units 23:18 02:53 02:53 Hct 46.6 H (34.0-46.0) % MCHC 30.2 L (31.0-37.0) g/dL RDW 16.0 H (11.5-15.5) % Plt Count 95 L (150-450) k/uL PT 14.5 H (9.0-12.0) sec INR 1.4 H (<1.2) Chloride 114 H (98-107) mmol/L Carbon Dioxide 10 L (22-30) mmol/L BUN 93 H (7-17) mg/dL Creatinine 2.95 H (0.52-1.04) mg/dL Glucose 119 H (74-99) mg/dL Total Bilirubin (0.2-1.3) mg/dL AST (14-36) U/L ALT (4-34) U/L Alkaline Phosphatase (38-126) U/L Total Protein (6.3-8.2) g/dL Urine Appearance (Clear) Urine Protein (Negative) Urine Blood (Negative) Urine Nitrite (Negative) Ur Leukocyte Esterase (Negative) Urine WBC (0-5) /hpf Urine Bacteria (None) /hpf Hyaline Casts (0-2) /lpf Urine Mucus (None) /hpf
[2020-11-30 14:11] VITALS: BP 116/69; PULSE 72; RESP 12; TEMP 95
== END 2020-11-30 15:00 | disposition hospice, inpatient (51) ==
LOC: EC 18:02 → 5NMEDONC 22:42
PROVIDERS: ADMIT Internal Medicine; ATTEND Internal Medicine
DX: N17.9 Acute kidney failure, unspecified (principal); E86.0 Dehydration; E87.2 Acidosis; N39.0 Urinary tract infection, site not specified; E11.69 Type 2 diabetes mellitus with other specified complication; M86.68 Other chronic osteomyelitis, other site; I12.9 Hypertensive chronic kidney disease with stage 1 through stage 4 chronic kidney disease, or unspecified chronic kidney disease; E11.22 Type 2 diabetes mellitus with diabetic chronic kidney disease; N18.30 Chronic kidney disease, stage 3 unspecified; E43 Unspecified severe protein-calorie malnutrition; Z68.20 Body mass index [BMI] 20.0-20.9, adult; E78.5 Hyperlipidemia, unspecified; E03.9 Hypothyroidism, unspecified; D69.59 Other secondary thrombocytopenia; J44.9 Chronic obstructive pulmonary disease, unspecified; I71.4 Abdominal aortic aneurysm, without rupture; I71.00 Dissection of unspecified site of aorta; F33.9 Major depressive disorder, recurrent, unspecified; F41.1 Generalized anxiety disorder; F17.210 Nicotine dependence, cigarettes, uncomplicated; Z79.2 Long term (current) use of antibiotics; Z79.82 Long term (current) use of aspirin; Z79.899 Other long term (current) drug therapy; Z88.1 Allergy status to other antibiotic agents; Z87.01 Personal history of pneumonia (recurrent); Z96.652 Presence of left artificial knee joint; Z87.81 Personal history of (healed) traumatic fracture; Z90.49 Acquired absence of other specified parts of digestive tract; Z87.19 Personal history of other diseases of the digestive system; Z86.19 Personal history of other infectious and parasitic diseases; Z90.710 Acquired absence of both cervix and uterus; Z80.1 Family history of malignant neoplasm of trachea, bronchus and lung; Z80.6 Family history of leukemia
CPT/HCPCS: 96365; 96366; 99285; 36415; 93005; 83880; 80053; 80048; 82550; 83605; 83735; 84484; 85025 ×2; 85610; 85730; 81001; 87086; 87077; 87186; 71046; G0378 ×2; J2543

== ENCOUNTER 2020-11-30 12:46 | Inpatient (IN) | payer MEDICAID ==
[2020-11-30] MEDS ORDERED: ACETAMINOPHEN SUPPOSITORY 650 MG SUPP RECTAL PRN (13:02)
[2020-11-30] MEDS ORDERED: LORazepam 2 MG/ML INJ IV PRN ×2 (13:02→16:14)
[2020-11-30] MEDS ORDERED: MORPHINE SULFATE 2 MG/ML SYRINGE IV PRN (13:02)
[2020-11-30] MEDS ORDERED: ATROPINE OPHTH SOLN 1% 5ML BTL SUBLINGUAL PRN (13:02)
[2020-11-30] MEDS ORDERED: ONDANSETRON 4 MG/2 ML VIAL IVP PRN (13:02)
[2020-12-01] MEDS ORDERED: MORPHINE CONC SOLN 10mg/0.5mL ORAL SYRG SL PRN (09:42)
[2020-12-01] MEDS ORDERED: LORazepam 0.5 MG TAB SUBLINGUAL PRN (09:44)
[2020-12-01 11:22] VITALS: BMI 53.7
[2020-12-01] MEDS: LORazepam 1 MG TAB PO SCH ×3 (11:57→20:36)
[2020-12-01] MEDS: MORPHINE CONC SOLN 10mg/0.5mL ORAL SYRG SL SCH ×3 (11:57→20:36)
[2020-12-02] MEDS: MORPHINE CONC SOLN 10mg/0.5mL ORAL SYRG SL SCH ×6 (00:47→21:49)
[2020-12-02] MEDS: LORazepam 1 MG TAB PO SCH ×6 (00:48→21:49)
[2020-12-03] MEDS: LORazepam 1 MG TAB PO SCH ×7 (00:38→23:19)
[2020-12-03] MEDS: MORPHINE CONC SOLN 10mg/0.5mL ORAL SYRG SL SCH ×7 (00:52→21:24)
[2020-12-04] MEDS: MORPHINE CONC SOLN 10mg/0.5mL ORAL SYRG SL SCH ×7 (00:18→23:48)
[2020-12-04] MEDS: LORazepam 1 MG TAB PO SCH ×6 (04:00→23:33)
[2020-12-04 20:09] VITALS: BP 90/59; PULSE 50; RESP 16; TEMP 98.6
[2020-12-05] MEDS: LORazepam 1 MG TAB PO SCH ×6 (02:50→23:49)
[2020-12-05] MEDS: MORPHINE CONC SOLN 10mg/0.5mL ORAL SYRG SL SCH ×5 (03:59→19:58)
[2020-12-06] MEDS: MORPHINE CONC SOLN 10mg/0.5mL ORAL SYRG SL SCH (00:07)
== END 2020-12-06 03:55 | disposition expired | DRG 951 ==
LOC: 5NMEDONC 15:00 → UNDOADMOB 15:00 → OBSVTOIN 12-01 08:02 → 5NMEDONC 12-05 21:50
PROVIDERS: ADMIT Internal Medicine; ATTEND Internal Medicine
DX: Z51.5 Encounter for palliative care (principal); I71.02 Dissection of abdominal aorta; E43 Unspecified severe protein-calorie malnutrition; N17.9 Acute kidney failure, unspecified; E87.2 Acidosis; M86.662 Other chronic osteomyelitis, left tibia and fibula; F33.9 Major depressive disorder, recurrent, unspecified; Z68.43 Body mass index [BMI] 50.0-59.9, adult; N39.0 Urinary tract infection, site not specified; D69.59 Other secondary thrombocytopenia; J44.9 Chronic obstructive pulmonary disease, unspecified; E11.9 Type 2 diabetes mellitus without complications; Z66 Do not resuscitate; I10 Essential (primary) hypertension; E78.5 Hyperlipidemia, unspecified; F41.1 Generalized anxiety disorder; E03.9 Hypothyroidism, unspecified; F17.200 Nicotine dependence, unspecified, uncomplicated; Z79.2 Long term (current) use of antibiotics; Z79.82 Long term (current) use of aspirin; Z79.899 Other long term (current) drug therapy; Z87.01 Personal history of pneumonia (recurrent); Z87.440 Personal history of urinary (tract) infections; Z90.49 Acquired absence of other specified parts of digestive tract; Z87.19 Personal history of other diseases of the digestive system; Z96.652 Presence of left artificial knee joint; Z98.890 Other specified postprocedural states; Z88.1 Allergy status to other antibiotic agents; Z82.49 Family history of ischemic heart disease and other diseases of the circulatory system; Z80.1 Family history of malignant neoplasm of trachea, bronchus and lung; Z80.6 Family history of leukemia